=== PATIENT | male | born 1950 | race Caucasian/White ===

== ENCOUNTER 2019-02-07 07:59 | Outpatient (CLI) | payer MEDICARE, SELFPAY | END 2019-02-07 08:19 | PROVIDERS: PCP Family Medicine; Visit Provider Family Medicine | DX: R69 Illness, unspecified (principal) | CPT/HCPCS: 36415; 80053; 80061; 83721; 84153 ==

== ENCOUNTER 2019-02-12 07:14 | Outpatient (CLI) | payer MEDICARE, SELFPAY | END 2019-02-12 07:34 | PROVIDERS: PCP Family Medicine; Visit Provider Family Medicine | DX: R69 Illness, unspecified (principal) | CPT/HCPCS: 36415; 80053; 80061; 83721; 84153 ==

== ENCOUNTER 2019-04-09 08:02 | Outpatient (CLI) | payer MEDICARE, MEDICAID, SELFPAY ==
[2019-04-09 08:54] LABS: Hemoglobin A1C 5.6 % (4.5-6.2)
[2019-04-09 09:12] LABS: ALT 23 U/L (12-78); AST 19 U/L (15-37); Albumin 3.6 g/dL (3.4-5.0); Alkaline Phosphatase 64 U/L (46-116); Anion Gap 9.5 mmol/L (3-11); BUN 18 mg/dL (7-18); Bilirubin, Total 0.3 mg/dL (0.2-1.0); CO2 26.5 mmol/L (21.0-32.0); CREATININE 0.98 mg/dL (0.70-1.30); Chloride 97 mmol/L (98-107); Cholesterol 170 mg/dL (50-200); Glucose 81 mg/dL (70-100); HDL Cholesterol 71 mg/dL (40-60); LDL CHOLESTEROL 79 mg/dL (<100); Potassium 4.5 mmol/L (3.5-5.1); Sodium 133 mmol/L (136-145); Total Protein 6.6 g/dL (6.4-8.2); Triglyceride 62 mg/dL (30-150)
== END 2019-04-09 08:22 ==
PROVIDERS: PCP Family Medicine; Visit Provider Family Medicine
DX: E78.5 Hyperlipidemia, unspecified (principal); I10 Essential (primary) hypertension; R73.01 Impaired fasting glucose; Z80.42 Family history of malignant neoplasm of prostate
CPT/HCPCS: 36415; 80053; 80061; 83721; 84153; 83036

== ENCOUNTER 2019-06-06 13:22 | Outpatient (REF) | payer MEDICARE, MEDICAID, SELFPAY ==
[2019-06-06 19:43] LABS: Anion Gap 6.6 mmol/L (3-11); BUN 27 mg/dL (7-18); CO2 28.4 mmol/L (21.0-32.0); CREATININE 1.08 mg/dL (0.70-1.30); Calcium 9.4 mg/dL (8.5-10.1); Chloride 102 mmol/L (98-107); Glucose 97 mg/dL (70-100); Potassium 4.8 mmol/L (3.5-5.1); Sodium 137 mmol/L (136-145)
== END 2019-06-06 13:42 ==
LOC: LBN 13:22
PROVIDERS: PCP Family Medicine; Visit Provider Nurse Practitioner Adult Health
DX: I10 Essential (primary) hypertension (principal); E87.1 Hypo-osmolality and hyponatremia
CPT/HCPCS: 80048

== ENCOUNTER 2020-10-05 10:37 | Outpatient (CLI) | payer MEDICAID, SELFPAY ==
[2020-10-09 13:41] LABS: Patient Race White; SARS-CoV-2 RNA Undetected (Undetected); SARS-CoV-2 Specimen Source Nasal
== END 2020-10-05 10:57 ==
PROVIDERS: PCP Nurse Practitioner Adult Health; Visit Provider Nurse Practitioner
DX: R05 Cough (principal)
CPT/HCPCS: U0003

== ENCOUNTER 2020-12-24 11:55 | Outpatient (CLI) | payer MEDICAID, MEDICARE, SELFPAY ==
[2020-12-24 12:32] LABS: Hemoglobin A1C 5.6 % (<5.7)
[2020-12-24 13:58] LABS: ALT 22 U/L (16-63); AST 21 U/L (15-37); Albumin 3.8 g/dL (3.4-5.0); Alkaline Phosphatase 72 U/L (46-116); Anion Gap 7.4 mmol/L (3-11); BUN 17 mg/dL (7-18); Bilirubin, Total 0.9 mg/dL (0.2-1.0); CO2 27.6 mmol/L (21.0-32.0); CREATININE 1.1 mg/dL (0.70-1.30); Calcium 9.3 mg/dL (8.5-10.1); Calculated LDL 132 mg/dL (<100); Chloride 100 mmol/L (98-107); Cholesterol 206 mg/dL (<200); Glucose 85 mg/dL (74-106); HDL Cholesterol 66 mg/dL (40-60); Potassium 4.5 mmol/L (3.5-5.1); Sodium 135 mmol/L (136-145); Total Protein 7.1 g/dL (6.4-8.2); Triglyceride 43 mg/dL (<150); Vitamin B12 578 pg/mL (193-986)
[2020-12-24 22:16] LABS: PSA, Screening 1.4 ng/mL (0.0-6.5)
== END 2020-12-24 12:15 ==
PROVIDERS: PCP Nurse Practitioner Adult Health; Visit Provider Nurse Practitioner Adult Health
DX: I10 Essential (primary) hypertension (principal); R73.01 Impaired fasting glucose; K21.9 Gastro-esophageal reflux disease without esophagitis; G62.9 Polyneuropathy, unspecified; N40.0 Benign prostatic hyperplasia without lower urinary tract symptoms; Z12.5 Encounter for screening for malignant neoplasm of prostate; Z80.42 Family history of malignant neoplasm of prostate
CPT/HCPCS: 36415; 80053; 80061; 84153; 82607; 83036

== ENCOUNTER 2021-05-06 15:21 | Outpatient (CLI) | payer MEDICAID, SELFPAY ==
--- NOTE | 2021-05-06 15:15 | RT.EKG_ITS ---
APPROVED REPORT Exam: Resting ECG Reason for Exam: c/o chest pain Patient Location: O HR:51 bpm ECG Measurements Heart Rate 51 AXIS MI 149 P 38 QRSd 134 QRS -66 QT 485 T -12 QTc 446 Conclusion Sinus bradycardia...rate< 60 RBBB and LAFB...QRSd >120mS, axis(-40,240)
== END 2021-05-06 15:22 | disposition home or self-care (01) ==
LOC: DI.KIM 15:22
PROVIDERS: PCP Nurse Practitioner Adult Health; Visit Provider Student in an Organized Health Care Education/Training Program
DX: R07.9 Chest pain, unspecified (principal)
CPT/HCPCS: 93010

== ENCOUNTER 2021-05-09 16:22 | Outpatient (RCR) | payer MEDICAID, SELFPAY ==
--- NOTE | 2021-05-09 13:30 | HOLTER_ITS ---
APPROVED REPORT This is a 48-hour Holter monitor. Rhythm throughout was sinus with an average heart rate of 62. Minimum was 49, maximum 89 There were very rare atrial and ventricular ectopic beats There is no atrial fibrillation, no high-grade AV block, no pauses greater than 3 seconds No patient symptoms were reported
--- NOTE | 2021-06-30 13:38 | W.CARDEVENT ---
Date of service: 06/30/21 Time of Service: 13:38 Cardiac Event Recorder Referring Provider:: Gifty Indications:: A Cardiac Event Note: There is a 30-day event recorder order for indication of tachycardia. ?The patient was in sinus bradycardia for the majority of the recording with an average heart rate of 55 bpm (46-100 BPM). ?There were no episodes of ventricular tachycardia nor any episodes of atrial fibrillation, pauses greater than 3 seconds and no evidence of high degree heart block. ?There were 2 patient triggered events both associated with sinus rhythm/sinus bradycardia.
== END 2021-05-25 23:59 | disposition home or self-care (01) ==
LOC: RT 16:22
PROVIDERS: PCP Nurse Practitioner Adult Health; Visit Provider Student in an Organized Health Care Education/Training Program
DX: R00.0 Tachycardia, unspecified (principal); R00.1 Bradycardia, unspecified
CPT/HCPCS: 93225; 93226

== ENCOUNTER 2021-06-13 14:32 | Outpatient (CLI) | payer MEDICAID, SELFPAY | END 2021-06-13 14:33 | disposition home or self-care (01) | PROVIDERS: PCP Nurse Practitioner Adult Health; Visit Provider Student in an Organized Health Care Education/Training Program | DX: R00.0 Tachycardia, unspecified (principal) | CPT/HCPCS: 93270 ==

== ENCOUNTER 2021-12-02 03:57 | Outpatient (CLI) | payer MEDICAID, SELFPAY ==
[2021-12-02 08:09] LABS: Hemoglobin A1C 5.6 % (<5.7)
[2021-12-02 08:58] LABS: ALT 21 U/L (16-63); AST 17 U/L (15-37); Albumin 4.1 g/dL (3.4-5.0); Alkaline Phosphatase 97 U/L (46-116); Anion Gap 10.1 mmol/L (3-11); BUN 16 mg/dL (7-18); Bilirubin, Total 0.8 mg/dL (0.2-1.0); CO2 27.9 mmol/L (21.0-32.0); CREATININE 1.2 mg/dL (0.70-1.30); Calcium 9.3 mg/dL (8.5-10.1); Calculated LDL 138 mg/dL (<100); Chloride 98 mmol/L (98-107); Cholesterol 216 mg/dL (<200); Estimated GFR 59.35 (mL/min/1.73m2); Glucose 114 mg/dL (74-106); HDL Cholesterol 66 mg/dL (40-60); Potassium 4.4 mmol/L (3.5-5.1); Sodium 136 mmol/L (136-145); Total Protein 7.5 g/dL (6.4-8.2); Triglyceride 61 mg/dL (<150)
[2021-12-02 09:09] LABS: Creatine Kinase 45 U/L (39-308)
[2021-12-02 17:23] LABS: PSA, Screening 1.5 ng/mL (0.0-6.5)
== END 2021-12-02 03:58 | disposition home or self-care (01) ==
LOC: LBO 03:57
PROVIDERS: PCP Nurse Practitioner Adult Health; Visit Provider Nurse Practitioner Adult Health
DX: E78.5 Hyperlipidemia, unspecified (principal); I10 Essential (primary) hypertension; N40.0 Benign prostatic hyperplasia without lower urinary tract symptoms; R73.01 Impaired fasting glucose; Z80.42 Family history of malignant neoplasm of prostate; Z12.5 Encounter for screening for malignant neoplasm of prostate
CPT/HCPCS: 36415; 80053; 80061; 82550; 84153; 83036

== ENCOUNTER 2022-01-04 01:39 | Outpatient (CLI) | payer MEDICAID, SELFPAY ==
[2022-01-04 08:04] LABS: Abs Immature Grans 0.02 10^3/uL (0.0-0.06); Absolute Basophil Count 0.04 10^3/uL (0.0-0.2); Absolute Eosinophil Count 0.19 10^3/uL (0.0-0.7); Absolute Lymphocyte Count 2.23 10^3/uL (1.2-3.4); Absolute Monocyte Count 0.62 10^3/uL (0.1-0.8); Absolute Neutrophil Count 5.32 10^3/uL (1.2-6.7); Basophils % 0.5; Eosinophils % 2.3; HCT 42.6 % (40.0-50.0); HGB 14.6 g/dL (13.5-17.5); Immature Grans % 0.2; Lymphocytes % 26.5; MCH 32.8 pg (27.0-33.0); MCHC 34.3 % (32.0-36.0); MCV 95.7 fL (80-95); MPV 9.4 fL (8.0-11.0); Monocytes % 7.4; Neutrophils % 63.1; Nucleated RBC 0 %; Platelet Count 285 10^3/uL (130-400); RBC 4.45 10^6/uL (4.36-5.78); RDW 12.3 % (11.8-14.1); RDW-SD 43.3 fL; WBC 8.42 10^3/uL (4.4-10.8)
[2022-01-04 09:04] LABS: Iron 113 ug/dL (65-175); Total Iron Binding Capacity 301 ug/dL (250-450)
[2022-01-04 09:29] LABS: Anion Gap 10.1 mmol/L (3-11); CO2 26.9 mmol/L (21.0-32.0); Chloride 103 mmol/L (98-107); Ferritin 169 ng/mL (26-388); Folate 19.8 ng/mL (8.6-20.0); Magnesium 2.1 mg/dL (1.8-2.4); Potassium 4.7 mmol/L (3.5-5.1); Sodium 140 mmol/L (136-145); Vitamin B12 415 pg/mL (193-986)
[2022-01-05 00:17] LABS: Vitamin D 25 Total 57.2 ng/mL (30-100)
[2022-01-05 14:04] LABS: Lipoprotein (a) 162 nmol/L (<75)
[2022-01-06 08:20] LABS: Homocysteine 11.4 umol/L (5.0-13.9)
== END 2022-01-04 01:40 | disposition home or self-care (01) ==
LOC: LBO 01:39
PROVIDERS: PCP Nurse Practitioner Adult Health; Visit Provider Naturopath
DX: R53.83 Other fatigue (principal); I10 Essential (primary) hypertension; E55.9 Vitamin D deficiency, unspecified; Z82.49 Family history of ischemic heart disease and other diseases of the circulatory system
CPT/HCPCS: 36415; 80051; 82306; 83090; 83695; 82607; 82728; 82746; 83540; 83550; 83735; 85025

== ENCOUNTER 2022-02-06 02:26 | Outpatient (CLI) | payer MEDICARE, MEDICAID, SELFPAY ==
[2022-02-06 19:02] LABS: PSA, Screening 1.6 ng/mL (0.0-6.5)
[2022-02-09 17:45] LABS: Estradiol, Mass Spectrometry 31 pg/mL (10-40); Estrone 38 pg/mL (10-60)
[2022-02-10 17:59] LABS: Dehydroepiandrosterone (DHEA) 2.4 ng/mL (<5.0)
[2022-02-13 12:11] LABS: Testosterone, Free 13.3 ng/dL (3.28-12.2); Testosterone, Total 605 ng/dL (240-950)
== END 2022-02-06 02:27 | disposition home or self-care (01) ==
LOC: LBO 02:26
PROVIDERS: PCP Nurse Practitioner Adult Health; Visit Provider Naturopath
DX: N40.0 Benign prostatic hyperplasia without lower urinary tract symptoms (principal); R68.82 Decreased libido; Z12.5 Encounter for screening for malignant neoplasm of prostate
CPT/HCPCS: 36415; 84153; 84402; 84403; 82626; 82670; 82679

== ENCOUNTER 2022-04-19 14:02 | Outpatient (CLI) | payer MEDICARE, MEDICAID, SELFPAY ==
[2022-04-19 14:01] LABS: ESR 35 mm/hr (0-20)
[2022-04-19 14:12] LABS: C-Reactive Protein 3.25 mg/dL (0.0-0.3); Creatine Kinase 37 U/L (39-308)
== END 2022-04-19 14:03 | disposition home or self-care (01) ==
LOC: LBO 14:25
PROVIDERS: PCP Nurse Practitioner Adult Health; Visit Provider Nurse Practitioner Adult Health
DX: M25.50 Pain in unspecified joint (principal); R53.1 Weakness
CPT/HCPCS: 36415; 82550; 85652; 86140

== ENCOUNTER 2022-05-26 03:12 | Outpatient (CLI) | payer MEDICARE, MEDICAID, SELFPAY ==
[2022-05-26 08:38] LABS: ESR 45 mm/hr (0-20)
[2022-05-26 09:08] LABS: C-Reactive Protein 0.95 mg/dL (0.0-0.3)
== END 2022-05-26 03:13 | disposition home or self-care (01) ==
LOC: LBO 03:12
PROVIDERS: PCP Nurse Practitioner Adult Health; Visit Provider Nurse Practitioner Adult Health
DX: M35.3 Polymyalgia rheumatica (principal)
CPT/HCPCS: 36415; 85652; 86140

== ENCOUNTER 2022-06-09 02:00 | Outpatient (CLI) | payer MEDICARE, MEDICAID, SELFPAY ==
[2022-06-09 09:04] LABS: ESR 13 mm/hr (0-20)
[2022-06-09 09:42] LABS: C-Reactive Protein < 0.05 mg/dL (0.0-0.3)
== END 2022-06-09 02:01 | disposition home or self-care (01) ==
LOC: LBO 02:00
PROVIDERS: PCP Nurse Practitioner Adult Health; Visit Provider Nurse Practitioner Adult Health
DX: M35.3 Polymyalgia rheumatica (principal)
CPT/HCPCS: 36415; 85652; 86140

== ENCOUNTER 2022-07-12 02:35 | Outpatient (CLI) | payer MEDICARE, MEDICAID, SELFPAY ==
[2022-07-12 08:36] LABS: HCT 37.2 % (40.0-50.0); HGB 13.4 g/dL (13.5-17.5); MCH 33.7 pg (27.0-33.0); MCV 94 fL (80-95); MPV 8.5 fL (8.0-11.0); Platelet Count 218 10^3/uL (130-400); RBC 3.98 10^6/uL (4.36-5.78); RDW-SD 48.4 fL; WBC 10.78 10^3/uL (4.4-10.8)
[2022-07-12 08:38] LABS: ESR 24 mm/hr (0-20)
[2022-07-12 09:41] LABS: Anion Gap 7.4 mmol/L (3-11); BUN 16 mg/dL (7-18); CO2 30.6 mmol/L (21.0-32.0); CREATININE 0.9 mg/dL (0.70-1.30); Calcium 8.5 mg/dL (8.5-10.1); Calculated LDL 82 mg/dL (<100); Chloride 95 mmol/L (98-107); Cholesterol 230 mg/dL (<200); Glucose 115 mg/dL (74-106); HDL Cholesterol 138 mg/dL (40-60); Potassium 3.5 mmol/L (3.5-5.1); Sodium 133 mmol/L (136-145); Triglyceride 53 mg/dL (<150)
[2022-07-12 15:17] LABS: C-Reactive Protein 0.38 mg/dL (0.0-0.3)
== END 2022-07-12 02:36 | disposition home or self-care (01) ==
LOC: LBO 02:35
PROVIDERS: PCP Nurse Practitioner Adult Health; Visit Provider Nurse Practitioner Adult Health
DX: M35.3 Polymyalgia rheumatica (principal); Z51.81 Encounter for therapeutic drug level monitoring; R79.89 Other specified abnormal findings of blood chemistry
CPT/HCPCS: 36415; 80048; 80061; 85027; 85652; 86140

== ENCOUNTER 2022-07-14 11:21 | Outpatient (REF) | payer MEDICARE, MEDICAID, SELFPAY ==
[2022-07-14 15:56] LABS: Creatine Kinase 37 U/L (39-308)
== END 2022-07-14 11:22 | disposition home or self-care (01) ==
LOC: LBN 11:21
PROVIDERS: PCP Nurse Practitioner Adult Health; Visit Provider Nurse Practitioner Adult Health
DX: M35.3 Polymyalgia rheumatica (principal); M62.81 Muscle weakness (generalized); R26.9 Unspecified abnormalities of gait and mobility
CPT/HCPCS: 82550

== ENCOUNTER 2022-07-21 01:22 | Outpatient (CLI) | payer MEDICARE, MEDICAID, SELFPAY ==
[2022-07-21 09:17] LABS: ESR 29 mm/hr (0-20)
[2022-07-21 10:15] LABS: C-Reactive Protein 0.78 mg/dL (0.0-0.3)
== END 2022-07-21 01:23 | disposition home or self-care (01) ==
LOC: LBO 01:22
PROVIDERS: PCP Nurse Practitioner Adult Health; Visit Provider Nurse Practitioner Adult Health
DX: M35.3 Polymyalgia rheumatica (principal)
CPT/HCPCS: 36415; 85652; 86140

== ENCOUNTER 2022-08-18 08:45 | Outpatient (CLI) | payer MEDICARE, MEDICAID, SELFPAY ==
[2022-08-18 09:18] LABS: ESR 23 mm/hr (0-20)
[2022-08-18 10:21] LABS: C-Reactive Protein 0.68 mg/dL (0.0-0.3)
[2022-08-21 09:41] LABS: Hepatitis B Surface Ag Negative (Negative)
[2022-08-21 09:44] LABS: HBs Antibody, Quant <3.1 mIU/mL (See Note); Hepatitis B Surface Ab Negative (See Note)
[2022-08-21 10:25] LABS: HIV-1/2 Ag & Ab Screen Negative (Negative)
[2022-08-21 10:28] LABS: Hep B Core Antibody Negative (Negative)
[2022-08-21 10:30] LABS: Hepatitis C Ab w Rflx HCV PCR Negative (Negative)
[2022-08-21 14:05] LABS: TB Interpretation Negative (Negative); TB1 Ag minus Nil 0.13 IU/ml; TB2 Ag minus Nil 0.09 IU/mL
== END 2022-08-18 08:46 | disposition home or self-care (01) ==
LOC: LBO 08:45
PROVIDERS: PCP Nurse Practitioner Adult Health
DX: M31.6 Other giant cell arteritis (principal); D84.9 Immunodeficiency, unspecified
CPT/HCPCS: 36415; 85652; 86704; 86706; 86803; 87340; 87389; 86140; 86480

== ENCOUNTER 2022-09-11 12:44 | Outpatient (CLI) | payer MEDICARE, MEDICAID, SELFPAY ==
[2022-09-11 09:38] LABS: ESR 24 mm/hr (0-20)
[2022-09-11 09:39] LABS: HCT 34.2 % (40.0-50.0); MCH 33.3 pg (27.0-33.0); MCHC 35.1 % (32.0-36.0); MCV 95 fL (80-95); Platelet Count 275 10^3/uL (130-400); RDW 12.8 % (11.8-14.1); RDW-SD 45.1 fL; WBC 16.99 10^3/uL (4.4-10.8)
[2022-09-11 10:23] LABS: C-Reactive Protein 0.63 mg/dL (0.0-0.3)
[2022-09-11 10:28] LABS: ALT 33 U/L (16-63); AST 18 U/L (15-37); Albumin 3.4 g/dL (3.4-5.0); Alkaline Phosphatase 59 U/L (46-116); Anion Gap 6.6 mmol/L (3-11); BUN 27 mg/dL (7-18); Bilirubin, Total 0.6 mg/dL (0.2-1.0); CO2 30.4 mmol/L (21.0-32.0); CREATININE 1.3 mg/dL (0.70-1.30); Calcium 9.1 mg/dL (8.5-10.1); Chloride 95 mmol/L (98-107); Estimated GFR 58.01 (mL/min/1.73m2); Glucose 165 mg/dL (74-106); Potassium 4.3 mmol/L (3.5-5.1); Sodium 132 mmol/L (136-145); TSH (W/Ref FT4) 3.52 uIU/mL (0.36-3.74); Total Protein 6.8 g/dL (6.4-8.2)
[2022-09-14 01:30] LABS: Pyridoxal 5-Phosphate (PLP), P 37 mcg/L (5-50)
== END 2022-09-11 12:45 | disposition home or self-care (01) ==
LOC: LBO 12:52
PROVIDERS: Internal Medicine; PCP Nurse Practitioner Adult Health; Visit Provider Nurse Practitioner Adult Health
DX: F10.11 Alcohol abuse, in remission (principal); M35.3 Polymyalgia rheumatica; M62.81 Muscle weakness (generalized); R26.9 Unspecified abnormalities of gait and mobility; E78.41 Elevated Lipoprotein(a); M31.6 Other giant cell arteritis
CPT/HCPCS: 36415; 80053; 85027; 85652; 84207; 84425; 84443; 86140

== ENCOUNTER 2022-09-13 12:47 | Outpatient (CLI) | payer MEDICARE, MEDICAID, SELFPAY ==
[2022-09-16 12:33] LABS: Thiamine (Vitamin B1), WB 131 nmol/L (70-180)
== END 2022-09-13 12:48 | disposition home or self-care (01) ==
LOC: LBO 12:50
PROVIDERS: PCP Nurse Practitioner Adult Health; Visit Provider Nurse Practitioner Adult Health
DX: F10.11 Alcohol abuse, in remission (principal); M35.3 Polymyalgia rheumatica; M62.81 Muscle weakness (generalized); R26.9 Unspecified abnormalities of gait and mobility
CPT/HCPCS: 84425

== ENCOUNTER 2022-10-18 11:53 | Outpatient (REF) | payer MEDICARE, MEDICAID, SELFPAY ==
[2022-10-18 14:29] LABS: Abs Immature Grans 0.14 10^3/uL (0.0-0.06); Absolute Basophil Count 0.02 10^3/uL (0.0-0.2); Absolute Lymphocyte Count 1.08 10^3/uL (1.2-3.4); Absolute Monocyte Count 0.33 10^3/uL (0.1-0.8); Basophils % 0.1; Eosinophils % 0.1; HCT 36.9 % (40.0-50.0); HGB 12.5 g/dL (13.5-17.5); Immature Grans % 0.9; Lymphocytes % 6.8; MCH 32.7 pg (27.0-33.0); MCHC 33.9 % (32.0-36.0); MCV 97 fL (80-95); MPV 8.9 fL (8.0-11.0); Monocytes % 2.1; Platelet Count 319 10^3/uL (130-400); RBC 3.82 10^6/uL (4.36-5.78); RDW 13.2 % (11.8-14.1); RDW-SD 47.2 fL; WBC 15.92 10^3/uL (4.4-10.8)
[2022-10-18 14:35] LABS: ESR 33 mm/hr (0-20)
[2022-10-18 14:39] LABS: Absolute Eosinophil Count 0.02 10^3/uL (0.0-0.7); Absolute Neutrophil Count 14.33 10^3/uL (1.2-6.7)
[2022-10-18 14:58] LABS: Hemoglobin A1C 7.7 % (<5.7)
[2022-10-18 15:28] LABS: ALT 30 U/L (16-63); AST 14 U/L (15-37); Albumin 3.4 g/dL (3.4-5.0); Alkaline Phosphatase 72 U/L (46-116); Anion Gap 10.2 mmol/L (3-11); BUN 26 mg/dL (7-18); Bilirubin, Total 0.4 mg/dL (0.2-1.0); CO2 26.8 mmol/L (21.0-32.0); CREATININE 1.1 mg/dL (0.70-1.30); Calcium 9.2 mg/dL (8.5-10.1); Chloride 93 mmol/L (98-107); Estimated GFR 70.44 (mL/min/1.73m2); Ferritin 324 ng/mL (26-388); Glucose 314 mg/dL (74-106); Potassium 4.2 mmol/L (3.5-5.1); Sodium 130 mmol/L (136-145); Total Protein 6.4 g/dL (6.4-8.2); Vitamin B12 528 pg/mL (193-986)
[2022-10-18 16:10] LABS: C-Reactive Protein 0.14 mg/dL (0.0-0.3)
== END 2022-10-18 11:54 | disposition home or self-care (01) ==
LOC: LBN 11:53
PROVIDERS: PCP Nurse Practitioner Adult Health; Visit Provider Nurse Practitioner Adult Health
DX: R73.01 Impaired fasting glucose (principal); I10 Essential (primary) hypertension; D64.9 Anemia, unspecified; R26.89 Other abnormalities of gait and mobility; M35.3 Polymyalgia rheumatica; F10.11 Alcohol abuse, in remission
CPT/HCPCS: 80048; 80053; 85652; 82607; 82728; 83036; 85025; 86140

== ENCOUNTER → 2022-10-24 01:49 | Outpatient (CLI) | payer MEDICARE, MEDICAID, SELFPAY ==
--- NOTE | 2022-10-24 06:45 | DI.NM_ITS ---
APPROVED REPORT Exam: Exercise Treadmill Patient Location: Out-Patient Room/Bed: Stress Nurse: Lynn Quintanilla RN Ordering Provider:EDDIE FRAZIER, Contact Number: [phone] BMI: 22.70 Baseline Rhythm: Sinus Rhythm, RBBB, LAFB Indications: ? ISCHEMIA RELATED SOB, HTN, SOB Medical History Medical History: Anemia, Abnormal gait, PMR, HLD, Peripheral neuropathy, HTN, Hx of ETOH abuse, forme r smoker, Impaired fasting glucose Cardiac Medications: Sildenafil, Omeprazole, Aspirin, Amlodipine, Allergies: Amoxicillin, Atenolol, Clavulanic acid Cardiac Risk Factors: FHX of CAD, HTN, Hyperlipidemia, Smoking (former) Previous Cardiac Procedures: None Pretest Chest Pain Characteristics: None Exercise History: Indeterminate Physical Disabilities: Abnormal gait Lung Sounds: Clear to auscultation Heart Sounds: Regular Stress Test Details Test: Exercise stress testing was performed using a Iftikhar protocol. Nuclear Acquisition: Rest Tc-99m/Stress Tc-99m 1 day Rest Isotope: Tc-99m Sestamibi. Dose: 10.0 Date: 10/24/2022 Injection Time: 0900 Stress Isotope: Tc-99m Sestamibi. Dose: 32.0 Date: 10/24/2022 Injection Time: 1017 HR Resting HR Supine: 68 bpm Max Heart Rate (APMHR): 146.959159 bpm Resting HR Standin bpm Target HR (85% APMHR): 124.238050 bpm Max HR Achieved: 128 bpm % of APMHR: 87.67 Recovery HR: 82 bpm HR response to stress: Normal HR response to stress BP Resting BP Supine: 144/74 mmHg Resting BP Standin/66 mmHg Max BP: 164/70 mmHg Recovery BP: 140/76 mmHg BP response to stress: Normal blood pressure response to stress. ECG Resting ECG: Sinus Rhythm, RBBB, LAFB Ectopy: None Stress ECG: Sinus Tachycardia ST Change: No significant ST segment changes noted Arrhythmia: None Recovery ECG: Sinus Rhythm, RBBB, LAFB Recovery ST Change: No significant ST segment changes noted Recovery Arrhythmia: rare PVC Clinical Reason for Termination: Fatigue, Leg fatigue Stress Symptoms: Dyspnea, Leg Fatigue Exercise duration: 3 min00 sec Highest Stage Reached: Stage 1: 1.7 mph at 10% grade. Exercise capacity: 4.64 METs Diehl Treadmill Score: 3 Rate Pressure Product: [id number] Stress ECG Conclusion 1. Resting electrocardiogram shows left anterior fascicular block, right bundle branch block 2. Patient exercised on the Iftikhar protocol and completed a workload of 4.64 METS, limited by fatigue and shortness of breath 3. Normal heart rate and blood pressure response to exercise. The patient achieved 87% of predicted heart rate for age 4. There was no electrocardiographic evidence of myocardial ischemia 5. See MPI report Diehl Treadmill Score is 3 which is Moderate risk. Stress Test Summary STAGE Time (mins) Speed (mph) Grade (%) HR BP SpO2 SYMPTOMS METS Supine 68 144/74 Standing 88 132/66 99 1 3 1.7 10 124 144/62 4.5 1 min recovery 119 150/52 98 3 min recovery 92 164/70 6 min recovery 82 140/76 Speed modified (decreased) after 2 minutes of walking to encourage continuation of exercise after iso tarsha injection. MPI Conclusion Myocardial perfusion is normal. There is no evidence of ischemia or prior infarction EF 52%, normal wall motion Radiologist Interpretation Radiologist Interpretation by: Jh Ricks MD Interpretation Date/Time: 10/24/2022 16:58:55
== END ==
PROVIDERS: PCP Nurse Practitioner Adult Health; Visit Provider Nurse Practitioner Adult Health
DX: I10 Essential (primary) hypertension (principal); R06.02 Shortness of breath; R73.01 Impaired fasting glucose
CPT/HCPCS: 78452; 93016; 93018; 93017

== ENCOUNTER → 2022-10-27 13:15 | Outpatient (CLI) | payer MEDICARE, MEDICAID, SELFPAY ==
--- NOTE | 2022-10-27 12:00 | DI.RAD_ITS ---
Exam(s) XR WRIST LT COMPLETE EXAM: XR WRIST LT COMPLETE CLINICAL HISTORY: Fall yesterday; suspect FOOSH injury, PAIN ULNAR SIDE WRIST, W19.XXXA. TECHNIQUE: 2D digital imaging was performed. Three views. COMPARISON: No exams were available for comparison FINDINGS: BONES: Nondisplaced fracture distal radius with slight impaction but no significant angulation or dis placement. No visible extension to the articular surface. No additional fractures. No bony destruc tive lesion is seen. JOINTS: The carpal bones are normally aligned. SOFT TISSUE: Normal. IMPRESSION: Nondisplaced fracture distal radius. DATA REPOSITORY: RADIATION DOSE DELIVERED:
== END ==
PROVIDERS: PCP Nurse Practitioner Adult Health; Visit Provider Nurse Practitioner Adult Health
DX: S52.502A Unspecified fracture of the lower end of left radius, initial encounter for closed fracture (principal); W19.XXXA Unspecified fall, initial encounter
CPT/HCPCS: 73110

== ENCOUNTER 2022-11-16 11:59 | Outpatient (CLI) | payer MEDICARE, MEDICAID, SELFPAY ==
--- NOTE | 2022-11-16 11:45 | DI.RAD_ITS ---
Exam(s) XR WRIST LT COMPLETE EXAM: XR WRIST LT COMPLETE CLINICAL HISTORY: left wrist f/u. TECHNIQUE: 2D digital imaging was performed. Three views. COMPARISON: CR XR WRIST LT COMPLETE from 10/27/2022 FINDINGS: There has been no change in the alignment of the distal radial fracture. There is increased callus f ormation around the fracture site. Vascular calcifications incidentally noted. DATA REPOSITORY: RADIATION DOSE DELIVERED:
== END 2022-11-16 12:00 | disposition home or self-care (01) ==
LOC: DIORS 12:00
PROVIDERS: PCP Nurse Practitioner Adult Health; Referring Provider Nurse Practitioner Adult Health; Visit Provider Student in an Organized Health Care Education/Training Program
DX: S52.502A Unspecified fracture of the lower end of left radius, initial encounter for closed fracture (principal); W00.0XXA Fall on same level due to ice and snow, initial encounter
CPT/HCPCS: 99213; 73110

== ENCOUNTER 2022-11-24 11:19 | Outpatient (CLI) | payer MEDICARE, MEDICAID, SELFPAY ==
--- NOTE | 2022-11-24 11:00 | DI.RAD_ITS ---
Exam(s) XR WRIST LT LIMITED EXAM: XR WRIST LT LIMITED INDICATION: L distal radius fx. COMPARISON: CR XR WRIST LT COMPLETE from 11/16/2022 TECHNIQUE: 2D digital imaging was performed. Two views. FINDINGS: There has been no change in the alignment of the distal radial fracture. There is increased callus f ormation at the fracture site. DATA REPOSITORY: RADIATION DOSE DELIVERED:
== END 2022-11-24 11:20 | disposition home or self-care (01) ==
LOC: DIORS 11:20
PROVIDERS: PCP Nurse Practitioner Adult Health; Referring Provider Nurse Practitioner Adult Health; Visit Provider Physician Assistant
DX: S52.502A Unspecified fracture of the lower end of left radius, initial encounter for closed fracture (principal); W19.XXXA Unspecified fall, initial encounter
CPT/HCPCS: 99213; 73100

== ENCOUNTER 2022-11-29 07:52 | Emergency (ER) | payer MEDICARE, MEDICAID, SELFPAY ==
[2022-11-29 07:55] VITALS: BP 133/86; PULSE 97; RESP 16; TEMP 36.5; O2SAT 98
--- NOTE | 2022-11-29 08:09 | ED.GENADUL_ITS ---
Discharge Plan Disposition Patient Disposition: Home Condition: Stable Discharge Details Clinical Impression: Cellulitis Primary Care Provider: Yesy Nagy ED Provider: Blake Fried Home Meds and New Rx's Prescriptions: New cephalexin 500 mg tablet 500 mg PO QID 7 Days Qty: 28 0RF Continued mupirocin 2 % ointment 1 applic topical BID-TID Qty: 15 0RF Rx Instructions: May substitute with cream if less expensive; use until lesion resolved vitamin B complex [B Complex-Vitamin B12] Tablet 1 tab PO DAILY zinc 50 mg tablet 50 mg PO DAILY Emergen-C 1,000 MG powder effervescent in packet 1,000 mg PO PRN PRN turmeric 400 mg capsule 400 mg PO DAILY Label Comments: Inflammation calcium carbonate 600 mg calcium (1,500 mg) tablet 600 mg PO BID cholecalciferol (vitamin D3) 25 mcg (1,000 unit) capsule 25 mcg PO DAILY prednisone 20 mg tablet 17.5 mg PO DAILY Rx Instructions: Rheumatology 09/14/22 Started taper Pt will start 17.5mg 10/19/22 for two weeks. 12/4 taper down to 15 mg x2 weeks, then 12.5 mg x 2 weeks, then 10 mg x2 weeks. Then taper down by 1 mg/month (DME) lancets Misc See Rx Instructions .Route Qty: 100 3RF Rx Instructions: As directed E11.9 for daily monitoring for A1C <=7% One touch lancets (DME) blood-glucose meter Kit See Rx Instructions .Route Qty: 1 0RF Rx Instructions: ONE TOUCH METER As directed to check blood glucose daily. No insulin. DX:E11.9 to maintain Hba1c <7% (DME) blood sugar diagnostic Strip See Rx Instructions .Route Qty: 100 3RF Rx Instructions: One touch test strips As directed to check blood glucose daily. no insulin. DX:E11.9 to maintain Hba1c <7% Discontinued metformin 500 mg tablet extended release 24 hr 1 tab PO DAILY Label Comments: TAKE ONE TABLET BY MOUTH EVERY DAY WITH FOOD No Action tamsulosin [Flomax] 0.4 mg capsule 0.4 mg PO DAILY Qty: 90 3RF Rx Instructions: Enlarged prostate metformin 500 mg tablet extended release 24 hr 500 mg PO DAILY Label Comments: TAKE ONE TABLET BY MOUTH EVERY DAY WITH FOOD amlodipine 5 mg tablet 5 mg PO DAILY Discharge Instructions Instructions: Cellulitis (ED) Additional Instructions: Continue to monitor infection and if you develop fever chills, significant and rapid spread of redness, or worrisome change in your condition return to the emergency department for reassessment. Otherwise take medication as prescribed and if you do not see signs of improvement in the next 24 to 48 hours follow-up with your primary care provider for reassessment or return to the emergency department. Referrals: Yesy Nagy CIRCUIT BOARD REPAIR TECHNICIAN [Primary Care Provider] - (As needed for reassessment or if not improving) Medical Decision Making Patient presenting to the emergency department for chief complaint of right forearm injury. 4 days ago patient states a bed spring caused a wound to the right forearm. Patient denies any other injury or trauma or symptoms. Patient has full range of motion of right upper extremity, no obvious deformity, patient does have an abrasion to the right forearm with surrounding erythema that is consistent with cellulitis. No streaking erythema, no fever no chills no other worrisome findings noted. Patient states that he is not up-to-date on his tetanus so we will plan on starting patient on Keflex and updating tetanus. After discussion of diagnosis and plan of care patient has no further needs, questions, or concerns and states clear understanding to return to the emergency department for any worsening symptoms. This documentation was generated using [employer] dictation system, please disregard any oddities of phrase or misspellings. At time of discharge patient did report that he was out of his metformin so I resent a prescription for 30 days pending his primary care appointment. HPI General Mode of arrival: ambulatory . Date/Time Provider Initiated Documentation: 11/29/22 08:02 . Limitations to Documentation: no limitations . Information obtained by: patient and RN notes reviewed . History of Present Illness 72 year old M presents to the emergency department with the chief complaint of Right arm infection, described as moderate, with intensity rated at 1. Quality is described as aching, and is localized to the right and upper extremity. Patient reports no radiation. Patient started experiencing this day(s) (4) and it has been constant. No relieving factors improve symptom(s), No exacerbating factors reported . Patient notes no other symptoms.. Patient did receive the following treatments prior to arrival, other Related Data Home Medications Medication Instructions Recorded Confirmed ascorbic acid 1,000 1,000 mg PO PRN PRN 05/13/18 11/29/22 [id number] powder effervescent pack (Emergen-C) vitamin B complex (B 1 tab PO DAILY 05/06/21 11/29/22 Complex-Vitamin B12 tablet) zinc 50 mg tablet 50 mg PO DAILY 05/06/21 11/29/22 mupirocin 2 % topical ointment 1 applic topical BID-TID #15 grams 07/11/21 11/29/22 turmeric 400 mg capsule 400 mg PO DAILY 04/20/22 11/29/22 calcium carbonate 600 mg calcium 600 mg PO BID 09/20/22 11/29/22 (1,500 mg) tablet cholecalciferol (vitamin D3) 25 25 mcg PO DAILY 09/20/22 11/29/22 mcg (1,000 unit) capsule prednisone 20 mg tablet 17.5 mg PO DAILY 10/27/22 11/29/22 blood sugar diagnostic #100 ea 11/01/22 11/24/22 blood-glucose meter #1 ea 11/01/22 11/24/22 lancets #100 ea 11/01/22 11/24/22 amlodipine 5 mg tablet 5 mg PO DAILY 11/29/22 11/29/22 cephalexin 500 mg tablet 500 mg PO QID 7 days #28 tabs 11/29/22 metformin 500 mg tablet,extended 500 mg PO DAILY 11/29/22 11/29/22 release 24 hr tamsulosin 0.4 mg capsule (Flomax) 0.4 mg PO DAILY #90 tab-caps 11/29/22 Previous Rx's Medication Instructions Recorded mupirocin 2 % topical ointment 1 applic topical BID-TID #15 grams 07/11/21 blood sugar diagnostic #100 ea 11/01/22 blood-glucose meter #1 ea 11/01/22 lancets #100 ea 11/01/22 cephalexin 500 mg tablet 500 mg PO QID 7 days #28 tabs 11/29/22 tamsulosin 0.4 mg capsule (Flomax) 0.4 mg PO DAILY #90 tab-caps 11/29/22 Allergies Allergy/AdvReac Type Severity Reaction Status Date / Time amoxicillin [From Augmentin] AdvReac Intermediate vomiting, Verified 11/29/22 07:58 GI Upset atenolol AdvReac Intermediate off Verified 11/29/22 07:58 balance, dizzy clavulanic acid AdvReac Intermediate vomiting, Verified 11/29/22 07:58 [From Augmentin] GI Upset General Stated Complaint: Laceration ASIM: 3 Review of Systems Narrative: 6 systems reviewed and unremarkable except what is marked below. Integumentary/Breasts Skin/Breast: Reports as per HPI, Reports erythema and Reports wounds PFSH All Active Problems (Updated 11/29/22 @ 08:21 by Blake Fried NP) Cellulitis (Acute) Fracture of distal end of left radius (Acute 10/26/22) Anemia (Chronic ~08/2022) On prednisone therapy (Acute ~04/2022) Abnormal gait (Acute ~06/2022) PMR (polymyalgia rheumatica) (Acute ~04/2022) Elevated lipoprotein A level (Acute ~12/2021) Immunization refused (Acute ~02/2022) Hyperlipidemia (Chronic ~07/2021) Recommend statin 07/2021; Note Taker Reynaldo Read obtained lipoprotein a, elevated--> cardiology recomm ends consider statin 01/2022 Family history of prostate cancer in father (Chronic) Also PGF Peripheral neuropathy (Chronic 05/07/18) Ideopathic; [facility] [place] [facility] Impaired fasting glucose (Chronic 05/07/18) Monitor annual A1Cs; +fam hx DMT2 Hypertension (Chronic 05/07/18) Goal 135-145 (lower & he feels poor)--didn't tolerate Lisinopril Benign prostatic hyperplasia (Chronic 05/13/18) RX Flomax History of alcohol abuse (Chronic 05/07/18) Medical History Anxiety (05/07/18) Edema of lower extremity (05/07/18) Occurred x1, RX Furosemide and never reoccurred even off Furosemide GERD (gastroesophageal reflux disease) (05/07/18) Hepatomegaly (05/07/18) Resolved off EtOH Seborrheic dermatitis of scalp Tachycardia site monitor stable--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 Surgical History Appendectomy Tonsillectomy Family History Father , 73yo from metastatic prostate cancer Essential hypertension Heart disease Myocardial infarction Neoplasm Prostate Mother , early 70s diabetes complications Diabetes Paternal Grandfather , prostate cancer Neoplasm Prostate Social History Smoking/Tobacco Use Status: Former Tobacco Use Quit Date: 11/26/71 Smoking risk assessment performed?: Yes Alcohol Intake: current Alcohol Intake frequency: 0-2 drinks per day Alcohol type: beer Drug use: Never Substance use type: does not use Household members: none Housing: apartment Number of Children: 3 Communication Needs: Corrective Lenses 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 What is your relationship status?: Panel score (0-1 are the most socially isolated patients): 0 What type of physical activity do you participate in: walking Duration: 15-30 minutes/day Frequency: 3-4 times per week Seatbelt use: always Drive intox or 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 local combination truck driver: No Working smoke detector in home: Yes Fire extinguisher in home: Yes Carbon monox detector in home: Yes Do you feel safe at home: Yes Do you feel safe in your relationship?: Yes Exam Const General: cooperative, no acute distress and not ill appearing Orientation: alert, awake and oriented x3 Resp Effort & Inspection: normal respiratory effort, able to speak in complete sentences and no respiratory distress Cardio Rate: regular rate Rhythm: regular rhythm Neuro General: patient alert, patient awake, patient oriented x3, moves all extremities and no focal motor deficits Extrem General: normal exam except as noted Right upper extremity: full ROM, normal capillary refill and elbow/forearm Details: tenderness Location: of the mid-shaft forearm, abrasion forearm mid anterior Details: single and distal pulses intact Course Vital Signs Vital signs: Vital Signs Temperature 36.5 C 11/29/22 07:55 Pulse 97 H 11/29/22 07:55 Respiratory Rate 16 11/29/22 07:55 Blood Pressure 133/86 11/29/22 07:55 Pulse Oximetry 98 11/29/22 07:55 Temperature 36.5 C 11/29/22 07:55 Temperature Source Skin 11/29/22 07:55 Pulse 97 H 11/29/22 07:55 Respiratory Rate 16 11/29/22 07:55 Respiratory Effort 11/29/22 08:00 Blood Pressure 133/86 11/29/22 07:55 Blood Pressure Position Sitting 11/29/22 07:55 Pulse Oximetry 98 11/29/22 07:55 Oxygen Delivery Method Room Air 11/29/22 07:55 Oxygen Flow Rate 0 11/29/22 07:55 Pain Level 1 11/29/22 07:55
[2022-11-29] MEDS: Cephalexin 500 MG CAP PO (08:23)
== END 2022-11-29 08:43 | disposition home or self-care (01) ==
PROVIDERS: Emergency Provider Nurse Practitioner Family; PCP Nurse Practitioner Adult Health
DX: S51.811A Laceration without foreign body of right forearm, initial encounter (principal); W26.8XXA Contact with other sharp object(s), not elsewhere classified, initial encounter; L03.113 Cellulitis of right upper limb; E11.9 Type 2 diabetes mellitus without complications
CPT/HCPCS: 36416; 82962; 90471; 99284

== ENCOUNTER 2022-12-02 11:24 | Emergency (ER) | payer MEDICARE, MEDICAID, SELFPAY ==
[2022-12-02 11:29] VITALS: BP 138/82; PULSE 121; RESP 18; TEMP 36.3; O2SAT 99
--- NOTE | 2022-12-02 11:37 | W.ED.GENAD ---
Discharge Plan Disposition Patient Disposition: Home Condition: Stable Discharge Details Clinical Impression: Encounter for wound re-check, Cellulitis Primary Care Provider: Yesy Nagy ED Provider: Lolly Barrios Home Meds and New Rx's Prescriptions: New clindamycin HCl 150 mg capsule 450 mg PO TID 7 Days Qty: 63 0RF Continued vitamin B complex [B Complex-Vitamin B12] Tablet 1 tab PO DAILY Emergen-C 1,000 MG powder effervescent in packet 1,000 mg PO PRN PRN turmeric 400 mg capsule 400 mg PO DAILY Label Comments: Inflammation calcium carbonate 600 mg calcium (1,500 mg) tablet 600 mg PO BID cholecalciferol (vitamin D3) 25 mcg (1,000 unit) capsule 25 mcg PO DAILY prednisone 20 mg tablet 17.5 mg PO DAILY Rx Instructions: [facility] 09/14/22 Started taper Pt will start 17.5mg 10/19/22 for two weeks. 12/4 taper down to 15 mg x2 weeks, then 12.5 mg x 2 weeks, then 10 mg x2 weeks. Then taper down by 1 mg/month tamsulosin [Flomax] 0.4 mg capsule 0.4 mg PO DAILY Qty: 90 3RF Rx Instructions: Enlarged prostate metformin 500 mg tablet extended release 24 hr 500 mg PO DAILY Label Comments: TAKE ONE TABLET BY MOUTH EVERY DAY WITH FOOD amlodipine 5 mg tablet 5 mg PO DAILY Discontinued cephalexin 500 mg tablet 500 mg PO QID 7 Days Qty: 28 0RF No Action mupirocin 2 % ointment 1 applic topical BID-TID Qty: 15 0RF Rx Instructions: May substitute with cream if less expensive; use until lesion resolved zinc 50 mg tablet 50 mg PO DAILY (DME) lancets Misc See Rx Instructions .Route Qty: 100 3RF Rx Instructions: As directed E11.9 for daily monitoring for A1C <=7% One touch lancets (DME) blood-glucose meter Kit See Rx Instructions .Route Qty: 1 0RF Rx Instructions: ONE TOUCH METER As directed to check blood glucose daily. No insulin. DX:E11.9 to maintain Hba1c <7% (DME) blood sugar diagnostic Strip See Rx Instructions .Route Qty: 100 3RF Rx Instructions: One touch test strips As directed to check blood glucose daily. no insulin. DX:E11.9 to maintain Hba1c <7% Discharge Instructions Instructions: Cellulitis (ED), Acute Wounds (ED) Additional Instructions: Keep clean and dry. Stop applying the topical antibiotic ointment. Keep covered with a Band-Aid or similar during the day. Allowed to air dry at least 2 hours a day. Stop the cephalexin if desired. Please start the clindamycin that you were given here today. Take it with yogurt or probiotic 3 times daily. Follow up with primary care provider in 3-5 days. Return to ED sooner if any fever, vomiting, red streaks traveling up your arm or concerns. Increase oral fluids. Please take Tylenol or Ibuprofen with food every 4-6 hours as needed for pain and swelling. Referrals: Yesy Nagy NP [Primary Care Provider] - 5 days Medical Decision Making 72-year-old male presents to the ER for wound recheck. Patient was seen 3 days ago diagnosed with cellulitis of his right forearm was placed on cephalexin which she reports has been taking as prescribed. He is concerned because the wound is not healed and it seems to have some increased erythema surrounding it. He denies any fever chills body aches no axillary tenderness no significant red streaks noted on exam. I will change antibiotic to clindamycin. I did discuss home care with patient and instructed him to keep it clean and dry and cover with a Band-Aid. Patient was supplied a Band-Aid here in the department. I did instruct him to stop using the bacitracin. Informed by staff therapist that patient is requesting oxycodone for his arm. This was not given to the patient. Did instruct him to take Tylenol as needed for pain. Instructed on home care and wound care. Repeat heart rate is 98 per RN report. He did initially present tachycardic with a heart rate of 121. This time the cellulitis does not seem to be systemic, might be some subtle increased erythema no red streaks noted. This time is safe for patient be discharged home antibiotic changed. This text was generated using [employer]VivioLinkation system, please disregard any oddities of phrase or misspellings. HPI General Mode of arrival: ambulatory. Date/Time Provider Initiated Documentation: 12/02/22 11:27. Limitations to Documentation: no limitations. Information obtained by: patient, RN notes reviewed and old records reviewed. HPI Narrative: 72-year-old male presents to the ER for wound recheck. Patient was seen 3 days ago diagnosed with cellulitis of his right forearm was placed on cephalexin which she reports has been taking as prescribed. He is concerned because the wound is not healed and it seems to have some increased erythema surrounding it. He denies any fever chills body aches no axillary tenderness no significant red streaks noted on exam. Past medical history includes GERD, anxiety, hepatomegaly, hypertension, hyperlipidemia, type 2 diabetes. History of alcohol abuse. Related Data Home Medications Medication Instructions Recorded Confirmed ascorbic acid 1,000 1,000 mg PO PRN PRN 05/13/18 12/02/22 [id number] powder effervescent pack (Emergen-C) vitamin B complex (B 1 tab PO DAILY 05/06/21 12/02/22 Complex-Vitamin B12 tablet) zinc 50 mg tablet 50 mg PO DAILY 05/06/21 12/02/22 mupirocin 2 % topical ointment 1 applic topical BID-TID #15 grams 07/11/21 12/02/22 turmeric 400 mg capsule 400 mg PO DAILY 04/20/22 12/02/22 calcium carbonate 600 mg calcium 600 mg PO BID 09/20/22 12/02/22 (1,500 mg) tablet cholecalciferol (vitamin D3) 25 25 mcg PO DAILY 09/20/22 12/02/22 mcg (1,000 unit) capsule prednisone 20 mg tablet 17.5 mg PO DAILY 10/27/22 12/02/22 blood sugar diagnostic #100 ea 11/01/22 12/02/22 blood-glucose meter #1 ea 11/01/22 12/02/22 lancets #100 ea 11/01/22 12/02/22 amlodipine 5 mg tablet 5 mg PO DAILY 11/29/22 12/02/22 metformin 500 mg tablet,extended 500 mg PO DAILY 11/29/22 12/02/22 release 24 hr tamsulosin 0.4 mg capsule (Flomax) 0.4 mg PO DAILY #90 tab-caps 11/29/22 12/02/22 clindamycin HCl 150 mg capsule 450 mg PO TID 7 days #63 caps 12/02/22 Previous Rx's Medication Instructions Recorded mupirocin 2 % topical ointment 1 applic topical BID-TID #15 grams 07/11/21 blood sugar diagnostic #100 ea 11/01/22 blood-glucose meter #1 ea 11/01/22 lancets #100 ea 11/01/22 tamsulosin 0.4 mg capsule (Flomax) 0.4 mg PO DAILY #90 tab-caps 11/29/22 clindamycin HCl 150 mg capsule 450 mg PO TID 7 days #63 caps 12/02/22 Allergies Allergy/AdvReac Type Severity Reaction Status Date / Time amoxicillin [From Augmentin] AdvReac Intermediate vomiting, Verified 12/02/22 11:33 GI Upset atenolol AdvReac Intermediate off Verified 12/02/22 11:33 balance, dizzy clavulanic acid AdvReac Intermediate vomiting, Verified 12/02/22 11:33 [From Augmentin] GI Upset General Stated Complaint: Recheck ASIM: 3 Review of Systems All systems reviewed & are unremarkable except as noted in HPI and below Constitutional Constitutional: Denies body ache(s), Denies chills and Denies fever(s) Integumentary/Breasts Skin/Breast: Reports as per HPI and Reports wounds PFSH All Active Problems (Updated 12/02/22 @ 11:51 by Lolly Barrios NP) Cellulitis (Acute) Encounter for wound re-check (Acute) Fracture of distal end of left radius (Acute 10/26/22) Anemia (Chronic ~08/2022) On prednisone therapy (Acute ~04/2022) Abnormal gait (Acute ~06/2022) PMR (polymyalgia rheumatica) (Acute ~04/2022) Elevated lipoprotein A level (Acute ~12/2021) Immunization refused (Acute ~02/2022) Hyperlipidemia (Chronic ~07/2021) Recommend statin 07/2021; 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[employer] Read obtained lipoprotein a, elevated--> cardiology recommends consider statin 01/2022 Family history of prostate cancer in father (Chronic) Also PGF Peripheral neuropathy (Chronic 05/07/18) Ideopathic; [facility] [place] Impaired fasting glucose (Chronic 05/07/18) Monitor annual A1Cs; +fam hx DMT2 Hypertension (Chronic 05/07/18) Goal 135-145 (lower & he feels poor)--didn't tolerate Lisinopril Benign prostatic hyperplasia (Chronic 05/13/18) RX Flomax History of alcohol abuse (Chronic 05/07/18) Medical History Anxiety (05/07/18) Edema of lower extremity (05/07/18) Occurred x1, RX Furosemide and never reoccurred even off Furosemide GERD (gastroesophageal reflux disease) (05/07/18) Hepatomegaly (05/07/18) Resolved off EtOH Seborrheic dermatitis of scalp 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 Surgical History Appendectomy Tonsillectomy Family History Father , 73yo from metastatic prostate cancer Essential hypertension Heart disease Myocardial infarction Neoplasm Prostate Mother , early 70s diabetes complications Diabetes Paternal Grandfather , prostate cancer Neoplasm Prostate Social History Smoking/Tobacco Use Status: Former Tobacco Use Quit Date: 11/26/71 Smoking risk assessment performed?: Yes Alcohol Intake: current Alcohol Intake frequency: 0-2 drinks per day Alcohol type: beer Drug use: Never Substance use type: does not use Household members: none Housing: apartment Number of Children: 3 Communication Needs: Corrective Lenses 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 What is your relationship status?: Panel score (0-1 are the most socially isolated patients): 0 What type of physical activity do you participate in: walking Duration: 15-30 minutes/day Frequency: 3-4 times per week Seatbelt use: always Drive intox or 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 bulk delivery driver: No Working smoke detector in home: Yes Fire extinguisher in home: Yes Carbon monox detector in home: Yes Do you feel safe at home: Yes Do you feel safe in your relationship?: Yes Exam Const General: cooperative, comfortable, well developed and well groomed Nutritional Appearance: average body habitus and well nourished Orientation: alert, awake and oriented x3 Extrem Right upper extremity: elbow/forearm (Wound see diagram) Elbow/forearm/wrist images: 1. Wound measuring approximately [id number] surrounding erythema measuring approximately 2cm x2cm No red streaks noted, no drainage. Course Vital Signs Vital signs: Vital Signs Temperature 36.3 C L 12/02/22 11:29 Pulse 121 H 12/02/22 11:29 Respiratory Rate 18 12/02/22 11:29 Blood Pressure 138/82 12/02/22 11:29 Pulse Oximetry 99 12/02/22 11:29 Temperature 36.3 C L 12/02/22 11:29 Temperature Source Temporal Artery Scan 12/02/22 11:29 Pulse 121 H 12/02/22 11:29 Respiratory Rate 18 12/02/22 11:29 Respiratory Effort Non-Labored 12/02/22 11:31 Blood Pressure 138/82 12/02/22 11:29 Blood Pressure Position Sitting 12/02/22 11:29 Pulse Oximetry 99 12/02/22 11:29 Oxygen Delivery Method Room Air 12/02/22 11:29 Oxygen Flow Rate 0 12/02/22 11:29 Pain Level 4 12/02/22 11:29 PAWSS Have you Been Recently Intoxicated or Drunk Within the Last 30 days?: No Have you Ever Experienced Previous Episodes of Alcohol Withdrawal?: No Have you ever Experienced Withdrawal Seizures?: No Have you ever Experienced Delirium Tremens(DT)s?: No Have you ever undergone Alcohol Rehabilitation Treatment (i.e, inpt ot outpatient treatment programs)?: No Have you ever Experienced Blackouts?: No Have you ever Combined Alcohol with other Downers within the last 90 days?: No Have you ever Combined Alcohol with any other Substance of Abuse during the last 90 days?: No Result: 0
--- NOTE | 2022-12-02 11:42 | NUR.NOTE ---
Nursing Note: ASIM 3 entered in error. Changed to ASIM 4
[2022-12-02] MEDS: Clindamycin 150 MG CAP 450 MG PO (11:48)
[2022-12-02 11:52] VITALS: PULSE 98
== END 2022-12-02 11:58 | disposition home or self-care (01) ==
PROVIDERS: Emergency Provider Registered Nurse Emergency; PCP Nurse Practitioner Adult Health
DX: L03.113 Cellulitis of right upper limb (principal)
CPT/HCPCS: 99283

== ENCOUNTER 2022-12-14 11:38 | Outpatient (CLI) | payer MEDICARE, MEDICAID, SELFPAY ==
--- NOTE | 2022-12-14 09:45 | DI.RAD_ITS ---
Exam(s) XR WRIST LT LIMITED EXAM: XR WRIST LT LIMITED CLINICAL HISTORY: F/U LEFT DISTAL RADIUS FRACTURE. TECHNIQUE: 2D digital imaging was performed. COMPARISON: CR XR WRIST LT LIMITED from 11/24/2022 FINDINGS: Two views: Again noted is healing fracture site in the distal radius appearing similar to previous. No displace ment. No angulation. No significant ulnar variance. Scapholunate distance is again noted be somewhat increased which may indicate ligamentous injury the interosseous ligament at this level. IMPRESSION: DATA REPOSITORY: RADIATION DOSE DELIVERED:
== END 2022-12-14 11:39 | disposition home or self-care (01) ==
LOC: DIORS 11:38
PROVIDERS: PCP Nurse Practitioner Adult Health; Referring Provider Nurse Practitioner Adult Health; Visit Provider Student in an Organized Health Care Education/Training Program
DX: S52.502D Unspecified fracture of the lower end of left radius, subsequent encounter for closed fracture with routine healing (principal); S63.8X2D Sprain of other part of left wrist and hand, subsequent encounter; W00.0XXD Fall on same level due to ice and snow, subsequent encounter
CPT/HCPCS: 99213; 73100

== ENCOUNTER 2022-12-20 02:02 | Outpatient (CLI) | payer MEDICARE, MEDICAID, SELFPAY ==
[2022-12-20 12:39] LABS: Abs Immature Grans 0.05 10^3/uL (0.0-0.06); Absolute Basophil Count 0.01 10^3/uL (0.0-0.2); Absolute Eosinophil Count 0.01 10^3/uL (0.0-0.7); Absolute Lymphocyte Count 1.18 10^3/uL (1.2-3.4); Absolute Neutrophil Count 12.67 10^3/uL (1.2-6.7); Basophils % 0.1; Eosinophils % 0.1; HCT 38.6 % (40.0-50.0); HGB 13.2 g/dL (13.5-17.5); Immature Grans % 0.3; Lymphocytes % 8.2; MCH 31.8 pg (27.0-33.0); MCHC 34.2 % (32.0-36.0); MCV 93 fL (80-95); MPV 9.1 fL (8.0-11.0); Monocytes % 3.1; Neutrophils % 88.2; Platelet Count 322 10^3/uL (130-400); RBC 4.15 10^6/uL (4.36-5.78); RDW 13.2 % (11.8-14.1); RDW-SD 44.8 fL; WBC 14.36 10^3/uL (4.4-10.8)
[2022-12-20 12:42] LABS: Absolute Monocyte Count 0.45 10^3/uL (0.1-0.8)
[2022-12-20 13:06] LABS: Hemoglobin A1C 7.1 % (<5.7)
[2022-12-20 13:26] LABS: Anion Gap 7.4 mmol/L (3-11); BUN 25 mg/dL (7-18); CO2 29.6 mmol/L (21.0-32.0); CREATININE 1.4 mg/dL (0.70-1.30); Calcium 10.1 mg/dL (8.5-10.1); Chloride 100 mmol/L (98-107); Estimated GFR 52.74 (mL/min/1.73m2); Glucose 207 mg/dL (74-106); Potassium 3.8 mmol/L (3.5-5.1); Sodium 137 mmol/L (136-145)
[2022-12-20 13:44] LABS: Ferritin 258 ng/mL (26-388)
== END 2022-12-20 02:03 | disposition home or self-care (01) ==
LOC: LBO 02:02
PROVIDERS: PCP Nurse Practitioner Adult Health; Visit Provider Nurse Practitioner Adult Health
DX: D64.9 Anemia, unspecified (principal); I10 Essential (primary) hypertension; R73.01 Impaired fasting glucose; M35.3 Polymyalgia rheumatica; Z79.52 Long term (current) use of systemic steroids
CPT/HCPCS: 36415; 80048; 82728; 83036; 85025

== ENCOUNTER 2023-01-16 09:26 | Outpatient (CLI) | payer MEDICARE, MEDICAID, SELFPAY ==
[2023-01-16 09:59] LABS: ESR 12 mm/hr (0-20)
[2023-01-16 10:17] LABS: Anion Gap 8.4 mmol/L (3-11); BUN 20 mg/dL (7-18); CO2 28.6 mmol/L (21.0-32.0); CREATININE 1.4 mg/dL (0.70-1.30); Calcium 9.8 mg/dL (8.5-10.1); Chloride 101 mmol/L (98-107); Estimated GFR 52.74 (mL/min/1.73m2); Glucose 223 mg/dL (74-106); Potassium 4.4 mmol/L (3.5-5.1); Sodium 138 mmol/L (136-145)
[2023-01-16 10:20] LABS: C-Reactive Protein 2.22 mg/dL (0.0-0.3)
== END 2023-01-16 09:27 | disposition home or self-care (01) ==
PROVIDERS: PCP Nurse Practitioner Adult Health; Visit Provider Internal Medicine
DX: E09.9 Drug or chemical induced diabetes mellitus without complications (principal); I10 Essential (primary) hypertension; N40.0 Benign prostatic hyperplasia without lower urinary tract symptoms; R79.89 Other specified abnormal findings of blood chemistry; R79.9 Abnormal finding of blood chemistry, unspecified; T38.0X5A Adverse effect of glucocorticoids and synthetic analogues, initial encounter; M31.6 Other giant cell arteritis
CPT/HCPCS: 36415; 80048; 85652; 86140

== ENCOUNTER 2023-02-07 09:55 | Outpatient (CLI) | payer MEDICARE, MEDICAID, SELFPAY ==
[2023-02-07 14:12] LABS: ESR 11 mm/hr (0-20)
[2023-02-07 14:17] LABS: C-Reactive Protein 0.09 mg/dL (0.0-0.3)
== END 2023-02-07 09:56 | disposition home or self-care (01) ==
LOC: LBO 10:14
PROVIDERS: PCP Nurse Practitioner Adult Health; Visit Provider Internal Medicine
DX: M31.6 Other giant cell arteritis (principal); Z79.899 Other long term (current) drug therapy; Z51.81 Encounter for therapeutic drug level monitoring
CPT/HCPCS: 36415; 85652; 86140

== ENCOUNTER → 2023-02-13 09:51 | Outpatient (BNVA) | payer MEDICARE, MEDICAID, SELFPAY | PROVIDERS: PCP Nurse Practitioner Adult Health; Referring Provider Nurse Practitioner Adult Health; Visit Provider Surgery | DX: K64.9 Unspecified hemorrhoids (principal) | CPT/HCPCS: 99202; 99213 ==

== ENCOUNTER 2023-03-05 02:09 | Outpatient (CLI) | payer MEDICARE, MEDICAID, SELFPAY ==
[2023-03-05 15:20] LABS: Abs Immature Grans 0.04 10^3/uL (0.0-0.06); Absolute Basophil Count 0.02 10^3/uL (0.0-0.2); Absolute Eosinophil Count 0.01 10^3/uL (0.0-0.7); Absolute Lymphocyte Count 1.08 10^3/uL (1.2-3.4); Absolute Monocyte Count 0.35 10^3/uL (0.1-0.8); Basophils % 0.2; Eosinophils % 0.1; HCT 41.6 % (40.0-50.0); HGB 13.9 g/dL (13.5-17.5); Immature Grans % 0.4; Lymphocytes % 10.3; MCH 30.8 pg (27.0-33.0); MCHC 33.4 % (32.0-36.0); MCV 92 fL (80-95); MPV 8.7 fL (8.0-11.0); Monocytes % 3.3; Neutrophils % 85.7; Platelet Count 225 10^3/uL (130-400); RBC 4.52 10^6/uL (4.36-5.78); RDW 13.5 % (11.8-14.1); RDW-SD 45.7 fL
[2023-03-05 16:01] LABS: ALT 25 U/L (16-63); AST 9 U/L (15-37); Albumin 3.8 g/dL (3.4-5.0); Alkaline Phosphatase 52 U/L (46-116); Anion Gap 6.8 mmol/L (3-11); BUN 33 mg/dL (7-18); Bilirubin, Total 0.3 mg/dL (0.2-1.0); CO2 29.2 mmol/L (21.0-32.0); CREATININE 1.5 mg/dL (0.70-1.30); Calcium 9.5 mg/dL (8.5-10.1); Chloride 102 mmol/L (98-107); Estimated GFR 48.55 (mL/min/1.73m2); Glucose 176 mg/dL (74-106); Potassium 4.4 mmol/L (3.5-5.1); Sodium 138 mmol/L (136-145); Total Protein 6.9 g/dL (6.4-8.2)
[2023-03-05 16:04] LABS: INR 0.9 (0.9-1.1); Prothrombin Time 9.5 sec (9.3-11.0)
== END 2023-03-05 02:10 | disposition home or self-care (01) ==
LOC: LBO 02:11
PROVIDERS: PCP Nurse Practitioner Adult Health; Referring Provider Nurse Practitioner Adult Health; Visit Provider Nurse Practitioner Adult Health
DX: E11.65 Type 2 diabetes mellitus with hyperglycemia (principal); R58 Hemorrhage, not elsewhere classified; R79.89 Other specified abnormal findings of blood chemistry
CPT/HCPCS: 36415; 80053; 85025; 85610

== ENCOUNTER 2023-03-20 00:39 | Outpatient (CLI) | payer MEDICARE, MEDICAID, SELFPAY ==
--- NOTE | 2023-03-20 08:15 | DI.US_ITS ---
Exam(s) US RENAL EXAM: US RENAL CLINICAL HISTORY: new aberrant renal labs; obsTructive path? vs. otheR,R79.89. TECHNIQUE: Ayala scale, color and spectral Doppler were used. COMPARISON: US ABDOMEN ULTRASOUND (P) from 01/18/2018 FINDINGS: Renal size in cm: Right: 10.1. Left: 11. Echogenicity: Normal. Hydronephrosis: No. Cyst or mass: No. Nephrolithiasis: There is a 0.5 cm echogenic focus in the right kidney consistent with a nonobstructi ng stone. Other findings: None. Bladder:Normal. Ureteral jets: Right: Visualized and unremarkable. Left: Visualized and unremarkable. Prevoid vol:460 cc Postvoid vol:360 cc Prostate: 18 cc Renal color flow: Symmetric and within normal limits. IMPRESSION: 1. Right nephrolithiasis. No hydronephrosis. 2. Large urinary bladder postvoid volume. DATA REPOSITORY:
== END 2023-03-20 00:59 ==
LOC: DI 00:39
PROVIDERS: PCP Nurse Practitioner Adult Health; Visit Provider Nurse Practitioner Adult Health
DX: R79.89 Other specified abnormal findings of blood chemistry (principal)
CPT/HCPCS: 76770

== ENCOUNTER 2023-04-09 03:05 | Outpatient (CLI) | payer MEDICARE, MEDICAID, SELFPAY ==
[2023-04-09 11:55] LABS: Abs Immature Grans 0.04 10^3/uL (0.0-0.06); Absolute Basophil Count 0.03 10^3/uL (0.0-0.2); Absolute Eosinophil Count 0.05 10^3/uL (0.0-0.7); Absolute Lymphocyte Count 2.32 10^3/uL (1.2-3.4); Absolute Monocyte Count 0.87 10^3/uL (0.1-0.8); Absolute Neutrophil Count 5.64 10^3/uL (1.2-6.7); Basophils % 0.3; Eosinophils % 0.6; HCT 41.6 % (40.0-50.0); HGB 14.3 g/dL (13.5-17.5); Immature Grans % 0.4; Lymphocytes % 25.9; MCH 31.1 pg (27.0-33.0); MCHC 34.4 % (32.0-36.0); MCV 90 fL (80-95); MPV 9.3 fL (8.0-11.0); Monocytes % 9.7; Neutrophils % 63.1; Platelet Count 213 10^3/uL (130-400); RDW 14.1 % (11.8-14.1); RDW-SD 46.7 fL; WBC 8.95 10^3/uL (4.4-10.8)
[2023-04-09 11:58] LABS: ESR 5 mm/hr (0-20)
[2023-04-09 12:09] LABS: ALT 29 U/L (16-63); AST 15 U/L (15-37); Albumin 3.8 g/dL (3.4-5.0); Alkaline Phosphatase 50 U/L (46-116); BUN 20 mg/dL (7-18); Bilirubin, Total 0.5 mg/dL (0.2-1.0); CREATININE 1.2 mg/dL (0.70-1.30); Calcium 9.2 mg/dL (8.5-10.1); Calculated LDL 136 mg/dL (<100); Chloride 103 mmol/L (98-107); Cholesterol 246 mg/dL (<200); Estimated GFR 63.46 (mL/min/1.73m2); Glucose 126 mg/dL (74-106); HDL Cholesterol 68 mg/dL (40-60); Potassium 4.1 mmol/L (3.5-5.1); Sodium 142 mmol/L (136-145); Triglyceride 214 mg/dL (<150)
[2023-04-09 12:18] LABS: C-Reactive Protein < 0.05 mg/dL (0.0-0.3)
== END 2023-04-09 03:06 | disposition home or self-care (01) ==
PROVIDERS: PCP Nurse Practitioner Adult Health; Visit Provider Internal Medicine
DX: M31.6 Other giant cell arteritis (principal); E78.5 Hyperlipidemia, unspecified; D84.9 Immunodeficiency, unspecified; Z79.899 Other long term (current) drug therapy; Z51.81 Encounter for therapeutic drug level monitoring
CPT/HCPCS: 36415; 80053; 80061; 85652; 85025; 86140

== ENCOUNTER 2023-04-19 12:06 | Emergency (ER) | payer MEDICARE, MEDICAID, SELFPAY ==
[2023-04-19 12:09] VITALS: BP 148/83; PULSE 82; RESP 16; TEMP 36.8; O2SAT 98
[2023-04-19] MEDS: Cephalexin 500 MG CAP PO (14:03)
[2023-04-19] MEDS: Bupivacaine 0.5% Pres-Free 30 ML VIAL IJ (14:03)
--- NOTE | 2023-04-19 14:32 | ED.GENADUL_ITS ---
Discharge Plan Disposition Patient Disposition: Home Condition: Stable Discharge Details Clinical Impression: Paronychia of finger of right hand, Hyperglycemia Primary Care Provider: Yesy Nagy ED Provider: Vladimir Lucas Home Meds and New Rx's Prescriptions: Continued tocilizumab 162 mg/0.9 mL pen injector 162 mg subcut QWEEK tamsulosin [Flomax] 0.4 mg capsule 0.8 mg PO DAILY Qty: 180 3RF Rx Instructions: Enlarged prostate; dose increase 03/29/2023 vitamin B complex [B Complex-Vitamin B12] Tablet 1 tab PO DAILY zinc 50 mg tablet 50 mg PO DAILY metformin 500 mg tablet extended release 24 hr 500 mg PO DAILY Qty: 90 2RF Rx Instructions: steroid induced diabetes aspirin 325 mg tablet 325 mg PO DAILY Hold Instructions: Changed by Provider hydrocortisone 2.5 % cream with perineal applicator 1 applic MD DAILY PRN (Reason: hemorrhoids) Qty: 30 0RF ciclopirox 8 % solution 1 applic topical QHS Qty: 6.6 3RF Rx Instructions: Apply to affected toenails nightly for up to 1year. Clean nails with alcohol q7d. Emergen-C 1,000 MG powder effervescent in packet 1,000 mg PO PRN PRN calcium carbonate 600 mg calcium (1,500 mg) tablet 600 mg PO BID cholecalciferol (vitamin D3) 25 mcg (1,000 unit) capsule 25 mcg PO DAILY (DME) lancets Misc See Rx Instructions .Route Qty: 100 3RF Rx Instructions: As directed E11.9 for daily monitoring for A1C <=7% One touch lancets (DME) blood-glucose meter Kit See Rx Instructions .Route Qty: 1 0RF Rx Instructions: ONE TOUCH METER As directed to check blood glucose daily. No insulin. DX:E11.9 to maintain Hba1c <7% (DME) blood sugar diagnostic Strip See Rx Instructions .Route Qty: 100 3RF Rx Instructions: One touch test strips As directed to check blood glucose daily. no insulin. DX:E11.9 to maintain Hba1c <7% amlodipine 5 mg tablet 5 mg PO DAILY Qty: 90 3RF ketoconazole 2 % shampoo 1 applic TP .2x/week Qty: 120 2RF Rx Instructions: Apply 2x/week for 8 weeks then PRN dandruff prednisone 20 mg tablet 8 mg PO DAILY Rx Instructions: 5/18/23 Rheumatology - Continue taper 02/23/23[place] [place] note: prednisone to 25mg x1 wk then 20mg x1 wk then 15mg x1 wk then 12.5mg x1 wk, then 10mg x1 wk and on. cc Discharge Instructions Instructions: Paronychia (ED) Additional Instructions: Please perform warm soaks 3 times a day for the next 1 week. Continue Bactrim as prescribed. Please contact your primary care physician to arrange follow-up. Your blood sugar was elevated today at 184. Be sure to discuss this with your doctor tomorrow. I am concerned that your elevated sugar is contributing to infections. Your doctor may wish to discontinue or initiate additional m edication. Return to the ER immediately for any worsening or new concerning symptoms. 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 Patient is on prednisone for giant cell arteritis. He is currently on Bactrim for eye infection. Incision and drainage was performed with digital block without complication. Considered hyperglycemia. Fingerstick blood sugar Usual customary discharge instructions reviewed with the patient. Encouraged to continue his Bactrim as prescribed. He was encouraged to follow-up with his PCP. HPI General Mode of arrival: ambulatory . Date/Time Provider Initiated Documentation: 04/19/23 13:17 . Information obtained by: patient . HPI Narrative: 72-year-old male here with right fourth digit pain and swelling over the past few days. Swelling is progressive. Patient notes he may have jammed his nail a couple weeks ago. Related Data Home Medications Medication Instructions Recorded Confirmed ascorbic acid 1,000 1,000 mg PO PRN PRN 05/13/18 04/19/23 [id number] powder effervescent pack (Emergen-C) vitamin B complex (B 1 tab PO DAILY 05/06/21 04/19/23 Complex-Vitamin B12 tablet) zinc 50 mg tablet 50 mg PO DAILY 05/06/21 04/19/23 calcium carbonate 600 mg calcium 600 mg PO BID 09/20/22 04/19/23 (1,500 mg) tablet cholecalciferol (vitamin D3) 25 25 mcg PO DAILY 09/20/22 04/19/23 mcg (1,000 unit) capsule blood sugar diagnostic #100 ea 11/01/22 04/19/23 blood-glucose meter #1 ea 11/01/22 04/19/23 lancets #100 ea 11/01/22 04/19/23 metformin 500 mg tablet,extended 500 mg PO DAILY #90 tabs 01/01/23 04/19/23 release 24 hr amlodipine 5 mg tablet 5 mg PO DAILY #90 tabs 01/22/23 04/19/23 tocilizumab 162 mg/0.9 mL 162 mg subcut QWEEK 02/01/23 04/19/23 subcutaneous pen injector aspirin 325 mg tablet 325 mg PO DAILY 02/13/23 04/19/23 hydrocortisone 2.5 % topical cream 1 applic MD DAILY PRN hemorrhoids 02/13/23 04/19/23 with perineal applicator #30 grams ketoconazole 2 % shampoo 1 applic topical .2x/week #120 mL 02/19/23 04/19/23 ciclopirox 8 % topical solution 1 applic topical QHS #6.6 mL 03/01/23 04/19/23 tamsulosin 0.4 mg capsule (Flomax) 0.8 mg PO DAILY #180 tab-caps 03/29/23 04/19/23 prednisone 20 mg tablet 8 mg PO DAILY 04/13/23 04/19/23 Previous Rx's Medication Instructions Recorded blood sugar diagnostic #100 ea 11/01/22 blood-glucose meter #1 ea 11/01/22 lancets #100 ea 11/01/22 metformin 500 mg tablet,extended 500 mg PO DAILY #90 tabs 01/01/23 release 24 hr amlodipine 5 mg tablet 5 mg PO DAILY #90 tabs 01/22/23 hydrocortisone 2.5 % topical cream 1 applic MD DAILY PRN hemorrhoids 02/13/23 with perineal applicator #30 grams ketoconazole 2 % shampoo 1 applic topical .2x/week #120 mL 02/19/23 ciclopirox 8 % topical solution 1 applic topical QHS #6.6 mL 03/01/23 tamsulosin 0.4 mg capsule (Flomax) 0.8 mg PO DAILY #180 tab-caps 03/29/23 Allergies Allergy/AdvReac Type Severity Reaction Status Date / Time amoxicillin [From Augmentin] AdvReac Intermediate vomiting, Verified 04/19/23 12:14 GI Upset atenolol AdvReac Intermediate off Verified 04/19/23 12:14 balance, dizzy clavulanic acid AdvReac Intermediate vomiting, Verified 04/19/23 12:14 [From Augmentin] GI Upset General Stated Complaint: Cellulitis ASIM: 4 PFSH All Active Problems (Updated 04/19/23 @ 15:00 by Vladimir Lucas MD) Paronychia of finger of right hand (Acute) Hyperglycemia (Acute) Immunosuppressed status (Acute) Elevated serum creatinine (Acute) Steroid-induced diabetes (Acute ~09/2022) GCA (giant cell arteritis) (Acute ~11/2022) [facility] [place]--RX Actremra 01/2023 Anemia (Chronic ~08/2022) On prednisone therapy (Acute ~04/2022) Abnormal gait (Acute ~06/2022) Peripheral neuropathy + vestibular ([facility] [place] 01/2023) PMR (polymyalgia rheumatica) (Acute ~04/2022) Elevated lipoprotein A level (Acute ~12/2021) Hyperlipidemia (Chronic ~07/2021) Recommend statin 07/2021; 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 Reynaldo Read obtained lipoprotein a, elevated--> cardiology recommends consider statin 01/2022 Family history of prostate cancer in father (Chronic) Also PGF Peripheral neuropathy (Chronic 05/07/18) EtOH related; [facility] [place] [facility] 2017 & 2022 Impaired fasting glucose (Chronic 05/07/18) Monitor annual A1Cs; +fam hx DMT2 Hypertension (Chronic 05/07/18) Goal 135-145 (lower & he feels poor)--didn't tolerate Lisinopril Benign prostatic hyperplasia (Chronic 05/13/18) RX Flomax History of alcohol abuse (Chronic 05/07/18) Medical History Anxiety (05/07/18) Edema of lower extremity (05/07/18) Occurred x1, RX Furosemide and never reoccurred even off Furosemide Fracture of distal end of left radius (10/26/22) GERD (gastroesophageal reflux disease) (05/07/18) Hepatomegaly (05/07/18) Resolved off EtOH Immunization refused (~02/2022) Left scapholunate ligament tear Seborrheic dermatitis of scalp 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 Surgical History Appendectomy Tonsillectomy Family History Father , 73yo from metastatic prostate cancer Essential hypertension Heart disease Myocardial infarction Neoplasm Prostate Mother , early 70s diabetes complications Diabetes Paternal Grandfather , prostate cancer Neoplasm Prostate Social History Smoking/Tobacco Use Status: Former Tobacco Use Quit Date: 11/26/71 Smoking risk assessment performed?: Yes Alcohol Intake: current Alcohol Intake frequency: 0-2 drinks per day Alcohol type: beer Drug use: Never Substance use type: does not use Household members: none Housing: apartment Number of Children: 3 Communication Needs: Corrective Lenses 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 Current gender identity: male What is your relationship status?: Panel score (0-1 are the most socially isolated patients): 0 What type of physical activity do you participate in: walking Duration: 15-30 minutes/day Frequency: 3-4 times per week Seatbelt use: always Drive intox or 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 race car driver: No Working smoke detector in home: Yes Fire extinguisher in home: Yes Carbon monox detector in home: Yes Do you feel safe at home: Yes Do you feel safe in your relationship?: Yes Exam Extrem Right upper extremity: hand (4th digit paronychia with damaged nail) Course Vital Signs Vital signs: Vital Signs Temperature 36.8 C 04/19/23 12:09 Pulse 82 04/19/23 12:09 Respiratory Rate 16 04/19/23 12:09 Blood Pressure 148/83 H 04/19/23 12:09 Pulse Oximetry 98 04/19/23 12:09 Temperature 36.8 C 04/19/23 12:09 Temperature Source Oral 04/19/23 12:09 Pulse 82 04/19/23 12:09 Respiratory Rate 16 04/19/23 12:09 Respiratory Effort Non-Labored 04/19/23 12:12 Blood Pressure 148/83 H 04/19/23 12:09 Blood Pressure Position Supine 04/19/23 12:09 Pulse Oximetry 98 04/19/23 12:09 Oxygen Delivery Method Room Air 04/19/23 12:09 Oxygen Flow Rate 0 04/19/23 12:09 Pain Level 4 04/19/23 12:09 Procedures Abscess I/D Site: Hand Side (if applicable): Right Technique: Incised with #11 Blade Irrigation: No Packing used?: None Nerve Block Nerve Block 1: Time out performed: Yes Local Anesthetic: Bupivicaine 0.5% Amount of anesthesia used (mL): 2 Side: right Nerve Blocks: digital (4th) Procedure Successful: Yes Patient Tolerated Procedure: well Complications: none Additional Comments: verbal informed consent obtained PAWSS Have you Been Recently Intoxicated or Drunk Within the Last 30 days?: No Have you Ever Experienced Previous Episodes of Alcohol Withdrawal?: No Have you ever Experienced Withdrawal Seizures?: No Have you ever Experienced Delirium Tremens(DT)s?: No Have you ever undergone Alcohol Rehabilitation Treatment (i.e, inpt ot outpatient treatment programs)?: No Have you ever Experienced Blackouts?: No Have you ever Combined Alcohol with other Downers within the last 90 days?: No Have you ever Combined Alcohol with any other Substance of Abuse during the last 90 days?: No Positive Blood Alcohol level on Presentation? [PCS.BAL]: No Evidence of Increased Autonomic Activity (i.e. HR>120, tremor, sweating, agitation, nausea)?: No Result: 0
== END 2023-04-19 15:14 | disposition home or self-care (01) ==
PROVIDERS: Emergency Provider Student in an Organized Health Care Education/Training Program; PCP Nurse Practitioner Adult Health
DX: L03.011 Cellulitis of right finger (principal); R73.9 Hyperglycemia, unspecified
CPT/HCPCS: 10060; 36416; 64450; 82962; 99284

== ENCOUNTER 2023-04-20 00:10 | Outpatient (CLI) | payer MEDICARE, MEDICAID, SELFPAY ==
--- NOTE | 2023-04-20 10:10 | DI.DEXA_ITS ---
Exam(s) XR DEXA BONE DENSITY W/WO RACHEAL EXAM: XR DEXA BONE DENSITY W/WO RACHEAL CLINICAL HISTORY: Assess bones--on high dose Prednisone for PMR,Z79.52 TECHNIQUE: COMPARISON: No exams were available for comparison FINDINGS: Lateral Spine Image: Unremarkable. No compression deformities identified. Left hip: Total T-Score: -1.8 Total Z-Score: -1.0 T- and Z-scores: Findings are consistent with osteopenia. There is no evidence of osteoporosis. Lumbar Spine: Total T-Score: -0.6 Total Z-Score: 0.4 T- and Z-scores: Within normal limits. There is no evidence of osteoporosis. IMPRESSION: No evidence of osteoporosis.
== END 2023-04-20 00:30 ==
LOC: DI 00:10
PROVIDERS: PCP Nurse Practitioner Adult Health; Visit Provider Nurse Practitioner Adult Health
DX: M35.3 Polymyalgia rheumatica (principal); Z79.52 Long term (current) use of systemic steroids; Z13.820 Encounter for screening for osteoporosis
CPT/HCPCS: 77080

== ENCOUNTER 2023-04-25 04:35 | Outpatient (CLI) | payer MEDICARE, MEDICAID, SELFPAY ==
[2023-04-25 09:49] LABS: Anion Gap 9.5 mmol/L (3-11); BUN 23 mg/dL (7-18); CO2 26.5 mmol/L (21.0-32.0); CREATININE 1.5 mg/dL (0.70-1.30); Chloride 106 mmol/L (98-107); Estimated GFR 48.55 (mL/min/1.73m2); Glucose 157 mg/dL (74-106); Potassium 4.1 mmol/L (3.5-5.1); Sodium 142 mmol/L (136-145)
== END 2023-04-25 04:36 | disposition home or self-care (01) ==
LOC: LBO 04:36
PROVIDERS: PCP Nurse Practitioner Adult Health; Visit Provider Nurse Practitioner Adult Health
DX: R79.89 Other specified abnormal findings of blood chemistry (principal); I10 Essential (primary) hypertension; E78.5 Hyperlipidemia, unspecified; R73.01 Impaired fasting glucose
CPT/HCPCS: 10060; 36415; 80048; 80053; 99283; 73130; 85025; 86140; 87070; 87205

== ENCOUNTER 2023-04-25 09:07 | Emergency (ER) | payer MEDICARE, MEDICAID, SELFPAY ==
[2023-04-25 09:08] VITALS: BP 139/66; PULSE 79; RESP 16; TEMP 36.7; O2SAT 98
--- NOTE | 2023-04-25 09:15 | DI.RAD_ITS ---
Exam(s) XR HAND RT COMPLETE EXAM: XR HAND RT COMPLETE CLINICAL HISTORY: 2nd and 3rd digit pain distally, pus under nails. TECHNIQUE: 2D digital imaging was performed. Three views. COMPARISON: No exams were available for comparison FINDINGS: BONES: No acute fracture is present. No bony destructive lesion is seen. JOINTS: No dislocation present. Mild degenerative changes. SOFT TISSUE: Vascular calcifications. Swelling near the nail bed of the middle and ring fingers. No calcifications or foreign bodies. IMPRESSION: Soft tissue swelling under the nail beds of the middle and ring fingers. No acute bony abnormality o r foreign body. DATA REPOSITORY: RADIATION DOSE DELIVERED:
[2023-04-25 09:29] LABS: Abs Immature Grans 0.02 10^3/uL (0.0-0.06); Absolute Basophil Count 0.03 10^3/uL (0.0-0.2); Absolute Eosinophil Count 0.08 10^3/uL (0.0-0.7); Absolute Monocyte Count 0.74 10^3/uL (0.1-0.8); Absolute Neutrophil Count 2.51 10^3/uL (1.2-6.7); Basophils % 0.5; Eosinophils % 1.3; HCT 41.9 % (40.0-50.0); HGB 14.3 g/dL (13.5-17.5); Immature Grans % 0.3; Lymphocytes % 43.5; MCH 31.7 pg (27.0-33.0); MCHC 34.1 % (32.0-36.0); MCV 93 fL (80-95); MPV 9.4 fL (8.0-11.0); Monocytes % 12.4; Platelet Count 225 10^3/uL (130-400); RBC 4.51 10^6/uL (4.36-5.78); RDW 14.3 % (11.8-14.1); RDW-SD 48.6 fL; WBC 5.98 10^3/uL (4.4-10.8)
[2023-04-25 10:25] LABS: ALT 28 U/L (16-63); AST 24 U/L (15-37); Albumin 3.8 g/dL (3.4-5.0); Alkaline Phosphatase 46 U/L (46-116); Anion Gap 9.3 mmol/L (3-11); BUN 23 mg/dL (7-18); Bilirubin, Total 0.6 mg/dL (0.2-1.0); C-Reactive Protein 0.06 mg/dL (0.0-0.3); CO2 26.7 mmol/L (21.0-32.0); CREATININE 1.5 mg/dL (0.70-1.30); Calcium 9.2 mg/dL (8.5-10.1); Chloride 106 mmol/L (98-107); Estimated GFR 48.55 (mL/min/1.73m2); Glucose 158 mg/dL (74-106); Potassium 4.3 mmol/L (3.5-5.1); Sodium 142 mmol/L (136-145); Total Protein 6.4 g/dL (6.4-8.2)
--- NOTE | 2023-04-25 10:59 | W.ED.GENAD ---
Discharge Plan Disposition Patient Disposition: Home Condition: Stable Discharge Details Clinical Impression: Paronychia of finger Primary Care Provider: Yesy Nagy ED Provider: Mirtha Dean Home Meds and New Rx's Prescriptions: New cephalexin 500 mg capsule 500 mg PO Q6H 7 Days Qty: 28 0RF Saccharomyces boulardii [Florastor] 250 mg capsule 250 mg PO BID Qty: 14 0RF Continued tocilizumab 162 mg/0.9 mL pen injector 162 mg subcut QWEEK tamsulosin [Flomax] 0.4 mg capsule 0.8 mg PO DAILY Qty: 180 3RF Rx Instructions: Enlarged prostate; dose increase 03/29/2023 vitamin B complex [B Complex-Vitamin B12] Tablet 1 tab PO DAILY zinc 50 mg tablet 50 mg PO DAILY metformin 500 mg tablet extended release 24 hr 500 mg PO DAILY Qty: 90 2RF Rx Instructions: steroid induced diabetes aspirin 325 mg tablet 325 mg PO DAILY Hold Instructions: Changed by Provider hydrocortisone 2.5 % cream with perineal applicator 1 applic RI DAILY PRN (Reason: hemorrhoids) Qty: 30 0RF ciclopirox 8 % solution 1 applic topical QHS Qty: 6.6 3RF Rx Instructions: Apply to affected toenails nightly for up to 1year. Clean nails with alcohol q7d. Emergen-C 1,000 MG powder effervescent in packet 1,000 mg PO PRN PRN calcium carbonate 600 mg calcium (1,500 mg) tablet 600 mg PO BID cholecalciferol (vitamin D3) 25 mcg (1,000 unit) capsule 25 mcg PO DAILY (DME) lancets Misc See Rx Instructions .Route Qty: 100 3RF Rx Instructions: As directed E11.9 for daily monitoring for A1C <=7% One touch lancets (DME) blood-glucose meter Kit See Rx Instructions .Route Qty: 1 0RF Rx Instructions: ONE TOUCH METER As directed to check blood glucose daily. No insulin. DX:E11.9 to maintain Hba1c <7% (DME) blood sugar diagnostic Strip See Rx Instructions .Route Qty: 100 3RF Rx Instructions: One touch test strips As directed to check blood glucose daily. no insulin. DX:E11.9 to maintain Hba1c <7% amlodipine 5 mg tablet 5 mg PO DAILY Qty: 90 3RF ketoconazole 2 % shampoo 1 applic TP .2x/week Qty: 120 2RF Rx Instructions: Apply 2x/week for 8 weeks then PRN dandruff prednisone 20 mg tablet 8 mg PO DAILY Rx Instructions: 04/12/23 [place]ology - Continue taper [place]23[place] [place]: prednisone to 25mg x1 wk then 20mg x1 wk then 15mg x1 wk then 12.5mg x1 wk, then 10mg x1 wk and on. cc Discharge Instructions Instructions: Paronychia (ED) Additional Instructions: Soak in warm water for 5 to 10 minutes every several hours Put a bandage on after Take the antibiotic as prescribed Take Florastor daily to replenish your gut bacteria Recheck in 48 hours Return earlier should you have new or worsening complaints Referrals: Yesy Nagy [employer] [Primary Care Provider] - Discharge Data Discharge Date/Time-TO BE ENTERED AT DEPARTURE: 04/25/23 11:06 Medical Decision Making Patient presents paronychia on right third digit, afebrile and nontoxic 18-gauge needle used after cleansing paronychia site on right third digit 2 incised and drained paronychia Dressing was applied Keflex applied Labs reviewed, no significant acute abnormalities, baseline chronic kidney disease Return precautions reviewed and patient expressed understanding Wound culture sent for further evaluation HPI General Date/Time Provider Initiated Documentation: 04/25/23 09:11. HPI Narrative: This 72-year-old male with history of giant cell arteritis, on chronic prednisone and immunosuppressive presents with report of recurrent paronychias. States that he had his fourth digit drained and now his third digit on the right hand is bothering him. He completed the course of Bactrim that he was prescribed. He denies any fever or chills. He last had his injection for giant cell arteritis approximately 2 weeks ago. He does take 5 mg of prednisone daily. He otherwise feels well. He denies any traumatic injuries. Related Data Home Medications Medication Instructions Recorded Confirmed ascorbic acid 1,000 1,000 mg PO PRN PRN 05/13/18 04/25/23 rv-vnumjmnofadl-dmyckgfk powder effervescent pack (Emergen-C) vitamin B complex (B 1 tab PO DAILY 05/06/21 04/25/23 Complex-Vitamin B12 tablet) zinc 50 mg tablet 50 mg PO DAILY 05/06/21 04/25/23 calcium carbonate 600 mg calcium 600 mg PO BID 09/20/22 04/25/23 (1,500 mg) tablet cholecalciferol (vitamin D3) 25 25 mcg PO DAILY 09/20/22 04/25/23 mcg (1,000 unit) capsule blood sugar diagnostic #100 ea 11/01/22 04/25/23 blood-glucose meter #1 ea 11/01/22 04/25/23 lancets #100 ea 11/01/22 04/25/23 metformin 500 mg tablet,extended 500 mg PO DAILY #90 tabs 01/01/23 04/25/23 release 24 hr amlodipine 5 mg tablet 5 mg PO DAILY #90 tabs 01/22/23 04/25/23 tocilizumab 162 mg/0.9 mL 162 mg subcut QWEEK 02/01/23 04/25/23 subcutaneous pen injector aspirin 325 mg tablet 325 mg PO DAILY 02/13/23 04/25/23 hydrocortisone 2.5 % topical cream 1 applic RI DAILY PRN hemorrhoids 02/13/23 04/25/23 with perineal applicator #30 grams ketoconazole 2 % shampoo 1 applic topical .2x/week #120 mL 02/19/23 04/25/23 ciclopirox 8 % topical solution 1 applic topical QHS #6.6 mL 03/01/23 04/25/23 tamsulosin 0.4 mg capsule (Flomax) 0.8 mg PO DAILY #180 tab-caps 03/29/23 04/25/23 prednisone 20 mg tablet 8 mg PO DAILY 04/13/23 04/25/23 Saccharomyces boulardii 250 mg 250 mg PO BID #14 caps 04/25/23 capsule (Florastor) cephalexin 500 mg capsule 500 mg PO Q6H 7 days #28 caps 04/25/23 Previous Rx's Medication Instructions Recorded blood sugar diagnostic #100 ea 11/01/22 blood-glucose meter #1 ea 11/01/22 lancets #100 ea 11/01/22 metformin 500 mg tablet,extended 500 mg PO DAILY #90 tabs 01/01/23 release 24 hr amlodipine 5 mg tablet 5 mg PO DAILY #90 tabs 01/22/23 hydrocortisone 2.5 % topical cream 1 applic RI DAILY PRN hemorrhoids 02/13/23 with perineal applicator #30 grams ketoconazole 2 % shampoo 1 applic topical .2x/week #120 mL 02/19/23 ciclopirox 8 % topical solution 1 applic topical QHS #6.6 mL 03/01/23 tamsulosin 0.4 mg capsule (Flomax) 0.8 mg PO DAILY #180 tab-caps 03/29/23 Saccharomyces boulardii 250 mg 250 mg PO BID #14 caps 04/25/23 capsule (Florastor) cephalexin 500 mg capsule 500 mg PO Q6H 7 days #28 caps 04/25/23 Allergies Allergy/AdvReac Type Severity Reaction Status Date / Time amoxicillin [From Augmentin] AdvReac Intermediate vomiting, Verified 04/25/23 09:15 GI Upset atenolol AdvReac Intermediate off Verified 04/25/23 09:15 balance, dizzy clavulanic acid AdvReac Intermediate vomiting, Verified 04/25/23 09:15 [From Augmentin] GI Upset General Stated Complaint: Orthopedic ASIM: 4 PFSH All Active Problems (Updated 04/25/23 @ 11:00 by DARLINE Clancy) Paronychia of finger of right hand (Acute) Hyperglycemia (Acute) Paronychia of finger (Acute) Immunosuppressed status (Acute) Elevated serum creatinine (Acute) Steroid-induced diabetes (Acute ~09/2022) GCA (giant cell arteritis) (Acute ~11/2022) [facility] [place] Actremra [place]23 Anemia (Chronic ~08/2022) On prednisone therapy (Acute ~04/2022) Abnormal gait (Acute ~06/2022) Peripheral neuropathy + vestibular [place] [place] PMR (polymyalgia rheumatica) (Acute ~04/2022) Elevated lipoprotein A level (Acute ~12/2021) Hyperlipidemia (Chronic ~07/2021) Recommend statin 07/2021; Eladia Read obtained lipoprotein a, elevated--> cardiology recommends consider statin 01/2022 Family history of prostate cancer in father (Chronic) Also PGF Peripheral neuropathy (Chronic 05/07/18) EtOH related; [facility] [place] 2022 Impaired fasting glucose (Chronic 05/07/18) Monitor annual A1Cs; +fam hx DMT2 Hypertension (Chronic 05/07/18) Goal 135-145 (lower & he feels poor)--didn't tolerate Lisinopril Benign prostatic hyperplasia (Chronic 05/13/18) RX Flomax History of alcohol abuse (Chronic 05/07/18) Medical History Anxiety (05/07/18) Edema of lower extremity (05/07/18) Occurred x1, RX Furosemide and never reoccurred even off Furosemide Fracture of distal end of left radius (10/26/22) GERD (gastroesophageal reflux disease) (05/07/18) Hepatomegaly (05/07/18) Resolved off EtOH Immunization refused (~02/2022) Left scapholunate ligament tear Seborrheic dermatitis of scalp Tachycardia conveyor monitor stable--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 Surgical History Appendectomy Tonsillectomy Family History Father , 73yo from metastatic prostate cancer Essential hypertension Heart disease Myocardial infarction Neoplasm Prostate Mother , early 70s diabetes complications Diabetes Paternal Grandfather , prostate cancer Neoplasm Prostate Social History Smoking/Tobacco Use Status: Former Tobacco Use Quit Date: 11/26/71 Smoking risk assessment performed?: Yes Alcohol Intake: current Alcohol Intake frequency: 0-2 drinks per day Alcohol type: beer Drug use: Never Substance use type: does not use Household members: none Housing: apartment Number of Children: 3 Communication Needs: Corrective Lenses 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 Current gender identity: male What is your relationship status?: Panel score (0-1 are the most socially isolated patients): 0 What type of physical activity do you participate in: walking Duration: 15-30 minutes/day Frequency: 3-4 times per week Seatbelt use: always Drive intox or 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 courtesy bus driver: No Working smoke detector in home: Yes Fire extinguisher in home: Yes Carbon monox detector in home: Yes Do you feel safe at home: Yes Do you feel safe in your relationship?: Yes Exam Narrative Exam Narrative: Patient with paronychia noted to the radial side of his right third digit on hand Fluctuant, no lymphangitis, Course Vital Signs Vital signs: Vital Signs Temperature 36.7 C 04/25/23 09:08 Pulse 79 04/25/23 09:08 Respiratory Rate 16 04/25/23 09:08 Blood Pressure 139/66 04/25/23 09:08 Pulse Oximetry 98 04/25/23 09:08 Temperature 36.7 C 04/25/23 09:08 Temperature Source Temporal Artery Scan 04/25/23 09:08 Pulse 79 04/25/23 09:08 Respiratory Rate 16 04/25/23 09:08 Respiratory Effort Normal 04/25/23 09:11 Blood Pressure 139/66 04/25/23 09:08 Blood Pressure Position Sitting 04/25/23 09:08 Pulse Oximetry 98 04/25/23 09:08 Oxygen Delivery Method Room Air 04/25/23 09:08 Oxygen Flow Rate 0 04/25/23 09:08 Pain Level 8 04/25/23 09:11 Lab/Test Results Lab/Test Results: 04/25/23 10:49 Finger - Right Third Digit Wound Culture - Pending 04/25/23 10:49 Finger - Right Third Digit Gram Stain - Pending Laboratory Tests Range/Units 04/25/23 04/25/23 09:05 09:05 WBC (4.4-10.8) 10^3/uL 5.98 RBC (4.36-5.78) 10^6/uL 4.51 Hgb (13.5-17.5) g/dL 14.3 Hct (40.0-50.0) % 41.9 MCV (80-95) fL 93 MCH (27.0-33.0) pg 31.7 MCHC (32.0-36.0) % 34.1 RDW (11.8-14.1) % 14.3 H Plt Count (130-400) 10^3/uL 225 MPV (8.0-11.0) fL 9.4 Immature Gran % 0.3 Neutrophils % 42.0 Lymphocytes % 43.5 Monocytes % 12.4 Eosinophils % 1.3 Basophils % 0.5 Nucleated RBC % (0.0-0.3) % 0.0 Absolute Neutrophils (1.2-6.7) 10^3/uL 2.51 Absolute Lymphocytes (1.2-3.4) 10^3/uL 2.60 Absolute Monocytes (0.1-0.8) 10^3/uL 0.74 Absolute Eosinophils (0.0-0.7) 10^3/uL 0.08 Absolute Basophils (0.0-0.2) 10^3/uL 0.03 Sodium (136-145) mmol/L 142 Potassium (3.5-5.1) mmol/L 4.3 Chloride (98-107) mmol/L 106 Carbon Dioxide (21.0-32.0) mmol/L 26.7 Anion Gap (3-11) mmol/L 9.3 BUN (7-18) mg/dL 23 H Creatinine (0.70-1.30) mg/dL 1.5 H Est GFR (CKD-EPI 2020) (mL/min/1.73m2) 48.55 Glucose (74-106) mg/dL 158 H Calcium (8.5-10.1) mg/dL 9.2 Total Bilirubin (0.2-1.0) mg/dL 0.6 AST (15-37) U/L 24 ALT (16-63) U/L 28 Alkaline Phosphatase (46-116) U/L 46 C-Reactive Protein (0.0-0.3) mg/dL 0.06 Total Protein (6.4-8.2) g/dL 6.4 Albumin (3.4-5.0) g/dL 3.8 Procedures Abscess I/D Site: Hand Side (if applicable): Right Sedation/analgesia: None Technique: Needle Aspiration Amount of fluid expressed (mL): 1 Irrigation: No Packing used?: None PAWSS Have you Been Recently Intoxicated or Drunk Within the Last 30 days?: No Have you Ever Experienced Previous Episodes of Alcohol Withdrawal?: No Have you ever Experienced Withdrawal Seizures?: No Have you ever Experienced Delirium Tremens(DT)s?: No Have you ever undergone Alcohol Rehabilitation Treatment (i.e, inpt ot outpatient treatment programs)?: No Have you ever Experienced Blackouts?: No Have you ever Combined Alcohol with other Downers within the last 90 days?: No Have you ever Combined Alcohol with any other Substance of Abuse during the last 90 days?: No Result: 0
== END 2023-04-25 11:06 | disposition home or self-care (01) ==
PROVIDERS: Emergency Provider Physician Assistant; PCP Nurse Practitioner Adult Health
DX: L03.011 Cellulitis of right finger (principal)
CPT/HCPCS: 10060; 80053; 99283; 73130; 85025; 86140; 87070; 87205

== ENCOUNTER 2023-04-30 10:48 | Emergency (ER) | payer MEDICARE, MEDICAID, SELFPAY ==
[2023-04-30 11:01] VITALS: BP 127/68; PULSE 72; RESP 16; TEMP 36.2; O2SAT 98
--- NOTE | 2023-04-30 11:40 | ED.GENADUL_ITS ---
Discharge Plan Disposition Patient Disposition: Home Condition: Stable Discharge Details Clinical Impression: Paronychia of finger, Fungal infection Primary Care Provider: Yesy Nagy ED Provider: Nia Lombardi Home Meds and New Rx's Prescriptions: New clotrimazole 1 % cream 1 applic topical BID 14 Days Qty: 30 0RF fluconazole 100 mg tablet 100 mg PO DAILY Qty: 9 0RF Rx Instructions: 2 tabs on day one, then 1 tab x 7 days Continued tocilizumab 162 mg/0.9 mL pen injector 162 mg subcut QWEEK tamsulosin [Flomax] 0.4 mg capsule 0.8 mg PO DAILY Qty: 180 3RF Rx Instructions: Enlarged prostate; dose increase 03/29/2023 vitamin B complex [B Complex-Vitamin B12] Tablet 1 tab PO DAILY zinc 50 mg tablet 50 mg PO DAILY metformin 500 mg tablet extended release 24 hr 500 mg PO DAILY Qty: 90 2RF Rx Instructions: steroid induced diabetes aspirin 325 mg tablet 325 mg PO DAILY Hold Instructions: Changed by Provider hydrocortisone 2.5 % cream with perineal applicator 1 applic [place] DAILY PRN (Reason: hemorrhoids) Qty: 30 0RF ciclopirox 8 % solution 1 applic topical QHS Qty: 6.6 3RF Rx Instructions: Apply to affected toenails nightly for up to 1year. Clean nails with alcohol q7d. Emergen-C 1,000 MG powder effervescent in packet 1,000 mg PO PRN PRN calcium carbonate 600 mg calcium (1,500 mg) tablet 600 mg PO BID cholecalciferol (vitamin D3) 25 mcg (1,000 unit) capsule 25 mcg PO DAILY (DME) lancets Misc See Rx Instructions .Route Qty: 100 3RF Rx Instructions: As directed E11.9 for daily monitoring for A1C <=7% One touch lancets (DME) blood-glucose meter Kit See Rx Instructions .Route Qty: 1 0RF Rx Instructions: ONE TOUCH METER As directed to check blood glucose daily. No insulin. DX:E11.9 to maintain Hba1c <7% (DME) blood sugar diagnostic Strip See Rx Instructions .Route Qty: 100 3RF Rx Instructions: One touch test strips As directed to check blood glucose daily. no insulin. DX:E11.9 to maintain Hba1c <7% amlodipine 5 mg tablet 5 mg PO DAILY Qty: 90 3RF ketoconazole 2 % shampoo 1 applic TP .2x/week Qty: 120 2RF Rx Instructions: Apply 2x/week for 8 weeks then PRN dandruff prednisone 20 mg tablet 5 mg PO DAILY Rx Instructions: 04/12/23 Rheumatology - Continue taper 02/23/23-[facility] rhuematology progress note: prednisone to 25mg x1 wk then 20mg x1 wk then 15mg x1 wk then 12.5mg x1 wk, then 10mg x1 wk and on. cc Discharge Instructions Instructions: Paronychia (ED) Additional Instructions: Please continue with the soaks that you have been doing and continuing to keep this area clean. Please begin the antifungal oral agent as well as the topical agent prescribed. These have been sent to your pharmacy. The oral agent you will need to take 2 pills today and then subsequently will take 1 pill for the next 7 days. Please call your primary care office and schedule follow-up appoin tment within the next week for reevaluation. If you develop fever/chills, increased pain, spreading redness or other new/worsening symptom please seek care urgently once again. Referrals: Yesy Nagy NP [Primary Care Provider] - Discharge Data Discharge Date/Time-TO BE ENTERED AT DEPARTURE: 04/30/23 17:22 Medical Decision Making Patient is a pleasant 72 year old RHD male presenting for reevaluation of right hand paronychia. He was here one week ago at which time it was drained. He has been soaking the finger 4x daily and taking the keflex as prescribed. Despite this, his symptoms have not improved. He deneis systemic symptoms. He is immunocompromised, on prednisone. Endorses some discomfort proximal to the area of parynychia but no joint pain. On exam, patient appears non-toxic. Resting comfortably. He has intact neurovascular exam. Paronychia is still draining. No area of fluctuance. The erythema is localized to the area along the ulnar side of the nail and the nail fold. It does not involve the palmar side or joint space. Exam is not consistent with sepsis, bacteremia, joint infection, or other deep space involvement at this time. Reviewed micro, positive for dillon. Discussed with patient. He is immunocompromised. He is very hesitant to use oral antifungal. Wisehs that I speak with his PCP, will call Yesy Palma, his PCP to discuss. Will start on fluconazole and clotrimazole. Spoke with his PCP, she advised starting this would be fine. Will start on fluconazole and clotrimazole. She will see him in f/u. Discussed with patient, he is agreeable with this plan. Encouraged that he continue with the soaks. Strict return preacutions discussed. All of his ques tions and concerns were addressed, he is in agreement with this plan. HPI General Date/Time Provider Initiated Documentation: 04/30/23 11:40 . Limitations to Documentation: no limitations . Information obtained by: patient, RN notes reviewed and old records reviewed . History of Present Illness 72 year old M presents to the emergency department with the chief complaint of peresistent paronychia, finger infection, desc ribed as mild, Quality is described as aching, and is localized to the right and upper extremity. Patient proximal (isolated erythematous area distal middle finger but paain to PIP joint). Patient started experiencing this week(s) and it has been constant. No relieving factors improve symptom(s), No exacerbating factors reported . Patient notes no other symptoms.; denies fever/chills and malaise. Patient did receive the following treatments prior to arrival, other (keflex x1wk, no change in symptoms) Related Data Home Medications Medication Instructions Recorded Confirmed ascorbic acid 1,000 1,000 mg PO PRN PRN 05/13/18 05/02/23 [id number] powder effervescent pack (Emergen-C) vitamin B complex (B 1 tab PO DAILY 05/06/21 05/02/23 Complex-Vitamin B12 tablet) zinc 50 mg tablet 50 mg PO DAILY 05/06/21 05/02/23 calcium carbonate 600 mg calcium 600 mg PO BID 09/20/22 05/02/23 (1,500 mg) tablet cholecalciferol (vitamin D3) 25 25 mcg PO DAILY 09/20/22 05/02/23 mcg (1,000 unit) capsule blood sugar diagnostic #100 ea 11/01/22 05/02/23 blood-glucose meter #1 ea 11/01/22 05/02/23 lancets #100 ea 11/01/22 05/02/23 metformin 500 mg tablet,extended 500 mg PO DAILY #90 tabs 01/01/23 05/02/23 release 24 hr amlodipine 5 mg tablet 5 mg PO DAILY #90 tabs 01/22/23 05/02/23 tocilizumab 162 mg/0.9 mL 162 mg subcut QWEEK 02/01/23 05/02/23 subcutaneous pen injector aspirin 325 mg tablet 325 mg PO DAILY 02/13/23 05/02/23 hydrocortisone 2.5 % topical cream 1 applic [place] DAILY PRN hemorrhoids 02/13/23 05/02/23 with perineal applicator #30 grams ketoconazole 2 % shampoo 1 applic topical .2x/week #120 mL 02/19/23 05/02/23 ciclopirox 8 % topical solution 1 applic topical QHS #6.6 mL 03/01/23 05/02/23 tamsulosin 0.4 mg capsule (Flomax) 0.8 mg PO DAILY #180 tab-caps 03/29/23 05/02/23 prednisone 20 mg tablet 5 mg PO DAILY 04/13/23 05/02/23 clotrimazole 1 % topical cream 1 applic topical BID 2 weeks #30 04/30/23 05/02/23 grams fluconazole 100 mg tablet 100 mg PO DAILY #9 tabs 04/30/23 05/02/23 Previous Rx's Medication Instructions Recorded blood sugar diagnostic #100 ea 11/01/22 blood-glucose meter #1 ea 11/01/22 lancets #100 ea 11/01/22 metformin 500 mg tablet,extended 500 mg PO DAILY #90 tabs 01/01/23 release 24 hr amlodipine 5 mg tablet 5 mg PO DAILY #90 tabs 01/22/23 hydrocortisone 2.5 % topical cream 1 applic [place] DAILY PRN hemorrhoids 02/13/23 with perineal applicator #30 grams ketoconazole 2 % shampoo 1 applic topical .2x/week #120 mL 02/19/23 ciclopirox 8 % topical solution 1 applic topical QHS #6.6 mL 03/01/23 tamsulosin 0.4 mg capsule (Flomax) 0.8 mg PO DAILY #180 tab-caps 03/29/23 clotrimazole 1 % topical cream 1 applic topical BID 2 weeks #30 04/30/23 grams fluconazole 100 mg tablet 100 mg PO DAILY #9 tabs 04/30/23 Allergies Allergy/AdvReac Type Severity Reaction Status Date / Time amoxicillin [From Augmentin] AdvReac Intermediate vomiting, Verified 05/02/23 13:08 GI Upset atenolol AdvReac Intermediate off Verified 05/02/23 13:08 balance, dizzy clavulanic acid AdvReac Intermediate vomiting, Verified 05/02/23 13:08 [From Augmentin] GI Upset General Stated Complaint: Recheck ASIM: 4 Review of Systems Constitutional Constitutional: Reports as per HPI, Denies chills and Denies fever(s) Cardiovascular Cardiovascular: Reports as per HPI Respiratory Respiratory: Reports as per HPI and Denies cough Musculoskeletal Musculoskeletal: Reports as per HPI and Denies tingling Integumentary/Breasts Skin/Breast: Reports as per HPI Neurologic Neurologic: Reports as per HPI, Denies tingling and Denies paresthesias PFSH All Active Problems (Updated 05/02/23 @ 13:27 by Yesy Nagy, JAYNA) Paronychia of finger of right hand (Acute) Fungal infection (Acute) Immunosuppressed status (Acute) Elevated serum creatinine (Acute) Steroid-induced diabetes (Acute ~09/2022) GCA (giant cell arteritis) (Acute ~11/2022) [facility] Endo--RX Actremra 01/2023 Anemia (Chronic ~08/2022) On prednisone therapy (Acute ~04/2022) Abnormal gait (Acute ~06/2022) Peripheral neuropathy + vestibular ([facility] Neuro 01/2023) PMR (polymyalgia rheumatica) (Acute ~04/2022) Elevated lipoprotein A level (Acute ~12/2021) Hyperlipidemia (Chronic ~07/2021) Recommend statin 07/2021; [employer] Reynaldo Read obtained lipoprotein a, elevated--> cardiology r ecommends consider statin 01/2022 Family history of prostate cancer in father (Chronic) Also PGF Peripheral neuropathy (Chronic 05/07/18) EtOH related; [facility] Neuro 2017 & 2022 Impaired fasting glucose (Chronic 05/07/18) Monitor annual A1Cs; +fam hx DMT2 Hypertension (Chronic 05/07/18) Goal 135-145 (lower & he feels poor)--didn't tolerate Lisinopril Benign prostatic hyperplasia (Chronic 05/13/18) RX Flomax History of alcohol abuse (Chronic 05/07/18) Medical History Anxiety (05/07/18) Edema of lower extremity (05/07/18) Occurred x1, RX Furosemide and never reoccurred even off Furosemide Fracture of distal end of left radius (10/26/22) GERD (gastroesophageal reflux disease) (05/07/18) Hepatomegaly (05/07/18) Resolved off EtOH Immunization refused (~02/2022) Left scapholunate ligament tear Seborrheic dermatitis of scalp 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--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 Surgical History Appendectomy Tonsillectomy Family History Father , 73yo from metastatic prostate cancer Essential hypertension Heart disease Myocardial infarction Neoplasm Prostate Mother , early 70s diabetes complications Diabetes Paternal Grandfather , prostate cancer Neoplasm Prostate Social History Smoking/Tobacco Use Status: Former Tobacco Use Quit Date: 11/26/71 Smoking risk assessment performed?: Yes Alcohol Intake: current Alcohol Intake frequency: 0-2 drinks per day Alcohol type: beer Drug use: Never Substance use type: does not use Household members: none Housing: apartment Number of Children: 3 Communication Needs: Corrective Lenses 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 Current gender identity: male What is your relationship status?: Panel score (0-1 are the most socially isolated patients): 0 What type of physical activity do you participate in: walking Duration: 15-30 minutes/day Frequency: 3-4 times per week Seatbelt use: always Drive intox or 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 sweeper driver: No Working smoke detector in home: Yes Fire extinguisher in home: Yes Carbon monox detector in home: Yes Do you feel safe at home: Yes Do you feel safe in your relationship?: Yes Exam Const General: cooperative, healthy appearing, comfortable, no acute distress, well developed and well groomed Nutritional Appearance: average body habitus and well nourished Orientation: alert and awake Resp Effort & Inspection: normal respiratory effort, able to speak in complete sentences and no respiratory distress Cardio Rate: regular rate Rhythm: regular rhythm Skin General skin exam: erythema and no fluctuance (area draining purulent fluid) Neuro General: patient alert and patient awake Cognition: normal cognition Speech: speech normal Motor: muscle tone normal throughout Sensory Exam: no sensory deficits noted Extrem Hand/finger images: 1. Ulnar aspect of the middle finger, right hand. 2+ distal pulses, intact capillary refilly. Sensation intact. Area of ertyenam extends just proximal to the nail. It does not extend to the palmar side. No fluctuance. Along the nail crease, there is a small amount of purulent discharge, no area of persistent fluctuance. Good ROM, no pain with passive ROM of the joints. Psych Appearance: grossly normal and well kempt Mental Status: mental status grossly normal Speech and Movement: speech and movement normal Course Vital Signs Vital signs: Vital Signs Temperature 36.2 C L 04/30/23 11:01 Pulse 72 04/30/23 11:01 Respiratory Rate 16 04/30/23 11:01 Blood Pressure 127/68 04/30/23 11:01 Pulse Oximetry 98 04/30/23 11:01 Temperature 36.2 C L 04/30/23 11:01 Temperature Source Oral 04/30/23 11:01 Pulse 72 04/30/23 11:01 Respiratory Rate 16 04/30/23 11:01 Blood Pressure 127/68 04/30/23 11:01 Blood Pressure Position Supine 04/30/23 11:01 Pulse Oximetry 98 04/30/23 11:01 Oxygen Delivery Method Room Air 04/30/23 11:01 Oxygen Flow Rate 0 04/30/23 11:01 Pain Level 7 04/30/23 11:01
[2023-04-30 14:38] VITALS: BP 155/76; PULSE 76; RESP 16; TEMP 36.4; O2SAT 97
[2023-04-30 15:40] VITALS: BP 155/76; PULSE 76; RESP 16; TEMP 36.4; O2SAT 97
== END 2023-04-30 17:22 | disposition home or self-care (01) ==
PROVIDERS: Emergency Provider Physician Assistant; PCP Nurse Practitioner Adult Health
DX: B37.2 Candidiasis of skin and nail (principal)
CPT/HCPCS: 99283; 99284

== ENCOUNTER 2023-05-14 12:45 | Outpatient (CLI) | payer MEDICARE, MEDICAID, SELFPAY ==
[2023-05-14 12:27] LABS: ESR 3 mm/hr (0-20)
[2023-05-14 12:56] LABS: ALT 24 U/L (16-63); AST 16 U/L (15-37); Alkaline Phosphatase 47 U/L (46-116); Anion Gap 10.2 mmol/L (3-11); BUN 23 mg/dL (7-18); Bilirubin, Total 0.5 mg/dL (0.2-1.0); CO2 27.8 mmol/L (21.0-32.0); CREATININE 1.3 mg/dL (0.70-1.30); Calcium 9.2 mg/dL (8.5-10.1); Chloride 102 mmol/L (98-107); Estimated GFR 57.65 (mL/min/1.73m2); Glucose 147 mg/dL (74-106); Potassium 4.2 mmol/L (3.5-5.1); Sodium 140 mmol/L (136-145); Total Protein 7.2 g/dL (6.4-8.2)
[2023-05-14 12:57] LABS: C-Reactive Protein < 0.05 mg/dL (0.0-0.3)
[2023-06-12 07:48] LABS: Result No fungi isolated
[2023-06-12 07:51] LABS: Result No fungi isolated
== END 2023-05-14 12:46 | disposition home or self-care (01) ==
LOC: LBO 12:46
PROVIDERS: PCP Nurse Practitioner Adult Health; Visit Provider Nurse Practitioner Adult Health
DX: M31.6 Other giant cell arteritis (principal); B37.2 Candidiasis of skin and nail
CPT/HCPCS: 36415; 80053; 85652; 87040; 86140; 87103

== ENCOUNTER 2023-06-14 08:46 | Emergency (ER) | payer MEDICARE, MEDICAID, SELFPAY ==
[2023-06-14 08:55] VITALS: BP 137/69; PULSE 81; RESP 16; TEMP 37.1; O2SAT 99
--- NOTE | 2023-06-14 09:36 | ED.GENADUL_ITS ---
Discharge Plan Disposition Patient Disposition: Home Condition: Stable Discharge Details Clinical Impression: Abrasion, corneal Primary Care Provider: Yesy Nagy ED Provider: Hebert Leo Home Meds and New Rx's Prescriptions: New ofloxacin 0.3 % drops 1 drp ophthalmic (eye) QID 7 Days Qty: 5 0RF Rx Instructions: bilateral eyes No Action tocilizumab 162 mg/0.9 mL pen injector 162 mg subcut QWEEK Hold Instructions: Patient Refused tamsulosin [Flomax] 0.4 mg capsule 0.8 mg PO DAILY Qty: 180 3RF Rx Instructions: Enlarged prostate; dose increase 03/29/2023 prednisone 20 mg tablet 4 mg PO DAILY Rx Instructions: 04/12/23 Rheumatology - Continue taper 02/23/23[place] [place]: prednisone to 25mg x1 wk then 20mg x1 wk then 15mg x1 wk then 12.5mg x1 wk, then 10mg x1 wk and on. cc vitamin B complex [B Complex-Vitamin B12] Tablet 1 tab PO DAILY zinc 50 mg tablet 50 mg PO DAILY metformin 500 mg tablet extended release 24 hr 500 mg PO DAILY Qty: 90 2RF Rx Instructions: steroid induced diabetes aspirin 325 mg tablet 325 mg PO DAILY Hold Instructions: Changed by Provider hydrocortisone 2.5 % cream with perineal applicator 1 applic [place] DAILY PRN (Reason: hemorrhoids) Qty: 30 0RF ciclopirox 8 % solution 1 applic topical QHS Qty: 6.6 3RF Rx Instructions: Apply to affected toenails nightly for up to 1year. Clean nails with alcohol q7d. Emergen-C 1,000 MG powder effervescent in packet 1,000 mg PO PRN PRN calcium carbonate 600 mg calcium (1,500 mg) tablet 600 mg PO BID cholecalciferol (vitamin D3) 25 mcg (1,000 unit) capsule 25 mcg PO DAILY (DME) lancets Misc See Rx Instructions .Route Qty: 100 3RF Rx Instructions: As directed E11.9 for daily monitoring for A1C <=7% One touch lancets (DME) blood-glucose meter Kit See Rx Instructions .Route Qty: 1 0RF Rx Instructions: ONE TOUCH METER As directed to check blood glucose daily. No insulin. DX:E11.9 to maintain Hba1c <7% (DME) blood sugar diagnostic Strip See Rx Instructions .Route Qty: 100 3RF Rx Instructions: One touch test strips As directed to check blood glucose daily. no insulin. DX:E11.9 to maintain Hba1c <7% amlodipine 5 mg tablet 5 mg PO DAILY Qty: 90 3RF ketoconazole 2 % shampoo 1 applic TP .2x/week Qty: 120 2RF Rx Instructions: Apply 2x/week for 8 weeks then PRN dandruff fluocinonide 0.05 % cream 1 applic topical BID Rx Instructions: Apply to affected areas on right fourth finger nail folds twice daily for 14 days and then switch to weekends only (Sat-Sun) for maintenance. fluconazole 150 mg tablet 150 mg PO DAILY Rx Instructions: Every other day for additional 3 weeks. Discharge Instructions Instructions: Corneal Abrasion (ED) Additional Instructions: Please take medication as prescribed. Please return to the emergency part for any worsening symptoms. We have sent a referral to eye clinic for further evaluation Medical Decision Making 72-year-old male history of giant cell arteritis on chronic prednisone presents with several weeks of bilateral eye discharge and discomfort in the morning. Patient afebrile nontoxic, describes no change in vision; no active discharge no evidence of conjunctival injection. Will perform fluorescein stain for further examination. Consider allergic conjunctivitis versus viral conjunctivitis versus must consider intermittent bacterial conjunctivitis lower suspicion for fungal conjunctivitis or herpetic conjunctivitis. Will likely start patient on empiric medicated eyedrops, will encourage close follow-up and return precautions 10: 30 evidence of small linear corneal abrasions left eye; will provide follow- up at [facility] eye Will start on ofloxacin drops HPI General Date/Time Provider Initiated Documentation: 06/14/23 09:18 . HPI Narrative: 72-year-old male history of giant cell arteritis on longstanding prednisone, presents with several weeks of bilateral eye discharge mainly in the morning associated with foreign body sensation. No subjective change in vision. No recent eye trauma; patient unable to characterize nature of discharge Related Data Home Medications Medication Instructions Recorded Confirmed ascorbic acid 1,000 1,000 mg PO PRN PRN 05/13/18 06/14/23 [id number] powder effervescent pack (Emergen-C) vitamin B complex (B 1 tab PO DAILY 05/06/21 06/14/23 Complex-Vitamin B12 tablet) zinc 50 mg tablet 50 mg PO DAILY 05/06/21 06/14/23 calcium carbonate 600 mg calcium 600 mg PO BID 09/20/22 06/14/23 (1,500 mg) tablet cholecalciferol (vitamin D3) 25 25 mcg PO DAILY 09/20/22 06/14/23 mcg (1,000 unit) capsule blood sugar diagnostic #100 ea 11/01/22 06/14/23 blood-glucose meter #1 ea 11/01/22 06/14/23 lancets #100 ea 11/01/22 06/14/23 metformin 500 mg tablet,extended 500 mg PO DAILY #90 tabs 01/01/23 06/14/23 release 24 hr amlodipine 5 mg tablet 5 mg PO DAILY #90 tabs 01/22/23 06/14/23 tocilizumab 162 mg/0.9 mL 162 mg subcut QWEEK 02/01/23 06/14/23 subcutaneous pen injector aspirin 325 mg tablet 325 mg PO DAILY 02/13/23 06/14/23 hydrocortisone 2.5 % topical cream 1 applic [place] DAILY PRN hemorrhoids 02/13/23 06/14/23 with perineal applicator #30 grams ketoconazole 2 % shampoo 1 applic topical .2x/week #120 mL 02/19/23 06/14/23 ciclopirox 8 % topical solution 1 applic topical QHS #6.6 mL 03/01/23 06/14/23 tamsulosin 0.4 mg capsule (Flomax) 0.8 mg PO DAILY #180 tab-caps 03/29/23 06/14/23 prednisone 20 mg tablet 4 mg PO DAILY 05/14/23 06/14/23 fluconazole 150 mg tablet 150 mg PO DAILY 06/07/23 06/14/23 fluocinonide 0.05 % topical cream 1 applic topical BID 06/07/23 06/14/23 ofloxacin 0.3 % eye drops 1 drp ophthalmic (eye) QID 7 days 06/14/23 #5 mL Previous Rx's Medication Instructions Recorded blood sugar diagnostic #100 ea 11/01/22 blood-glucose meter #1 ea 11/01/22 lancets #100 ea 11/01/22 metformin 500 mg tablet,extended 500 mg PO DAILY #90 tabs 01/01/23 release 24 hr amlodipine 5 mg tablet 5 mg PO DAILY #90 tabs 01/22/23 hydrocortisone 2.5 % topical cream 1 applic WV DAILY PRN hemorrhoids 02/13/23 with perineal applicator #30 grams ketoconazole 2 % shampoo 1 applic topical .2x/week #120 mL 02/19/23 ciclopirox 8 % topical solution 1 applic topical QHS #6.6 mL 03/01/23 tamsulosin 0.4 mg capsule (Flomax) 0.8 mg PO DAILY #180 tab-caps 03/29/23 ofloxacin 0.3 % eye drops 1 drp ophthalmic (eye) QID 7 days 06/14/23 #5 mL Allergies Allergy/AdvReac Type Severity Reaction Status Date / Time amoxicillin [From Augmentin] AdvReac Intermediate vomiting, Verified 06/14/23 09:00 GI Upset atenolol AdvReac Intermediate off Verified 06/14/23 09:00 balance, dizzy clavulanic acid AdvReac Intermediate vomiting, Verified 06/14/23 09:00 [From Augmentin] GI Upset General Stated Complaint: EyeProblem ASIM: 4 Review of Systems Narrative: Review of Systems Constitutional: negative Eyes: negative ENT: Eye discharge Cardiovascular: negative Respiratory: negative Gastrointestinal: negative : negative Musculoskeletal: negative Skin: negative Neurologic: negative Psych: negative PFSH All Active Problems (Updated 06/14/23 @ 10:32 by Hebert Leo MD) Abrasion, corneal (Acute) Candidal paronychia (Acute) Immunosuppressed status (Acute) Steroid-induced diabetes (Acute ~09/2022) GCA (giant cell arteritis) (Acute ~11/2022) [facility] [place] Actremra [place]23 Anemia (Chronic ~08/2022) On prednisone therapy (Acute ~04/2022) Abnormal gait (Acute ~06/2022) Peripheral neuropathy + vestibular ([facility] [place] PMR (polymyalgia rheumatica) (Acute ~04/2022) Elevated lipoprotein A level (Acute ~12/2021) Hyperlipidemia (Chronic ~07/2021) Recommend statin 07/2021; Eladia Read obtained lipoprotein a, elevated--> cardiology recommends consider statin 01/2022 Family history of prostate cancer in father (Chronic) Also PGF Peripheral neuropathy (Chronic 05/07/18) EtOH related; [facility] [facility] [place] & 2022 Impaired fasting glucose (Chronic 05/07/18) Monitor annual A1Cs; +fam hx DMT2 Hypertension (Chronic 05/07/18) Goal 135-145 (lower & he feels poor)--didn't tolerate Lisinopril Benign prostatic hyperplasia (Chronic 05/13/18) RX Flomax History of alcohol abuse (Chronic 05/07/18) Medical History (Updated 06/14/23 @ 10:32 by Hebert Leo MD) Anxiety (05/07/18) Edema of lower extremity (05/07/18) Occurred x1, RX Furosemide and never reoccurred even off Furosemide Elevated serum creatinine Fracture of distal end of left radius (10/26/22) GERD (gastroesophageal reflux disease) (05/07/18) Hepatomegaly (05/07/18) Resolved off EtOH Immunization refused (~02/2022) Left scapholunate ligament tear Seborrheic dermatitis of scalp 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 Surgical History Appendectomy Tonsillectomy Family History Father , 73yo from metastatic prostate cancer Essential hypertension Heart disease Myocardial infarction Neoplasm Prostate Mother , early 70s diabetes complications Diabetes Paternal Grandfather , prostate cancer Neoplasm Prostate Social History Smoking/Tobacco Use Status: Former Tobacco Use Quit Date: 11/26/71 Smoking risk assessment performed?: Yes Alcohol Intake: current Alcohol Intake frequency: 0-2 drinks per day Alcohol type: beer Drug use: Never Substance use type: does not use Household members: none Housing: apartment Number of Children: 3 Communication Needs: Corrective Lenses 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 Current gender identity: male What is your relationship status?: Panel score (0-1 are the most socially isolated patients): 0 What type of physical activity do you participate in: walking Duration: 15-30 minutes/day Frequency: 3-4 times per week Seatbelt use: always Drive intox or 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: No Working smoke detector in home: Yes Fire extinguisher in home: Yes Carbon monox detector in home: Yes Do you feel safe at home: Yes Do you feel safe in your relationship?: Yes Exam Narrative Exam Narrative: Physical Examination General: alert, awake, cooperative, resting comfortably, no acute distress HEENT: normocephalic, atraumatic; PERRL, EOM intact, conjunctiva normal; no nasal discharge; moist mucous membranes, oral and pharyngeal mucosa normal, tolerating secretions t Course Vital Signs Vital signs: Vital Signs Temperature 37.1 C 06/14/23 08:55 Pulse 81 06/14/23 08:55 Respiratory Rate 16 06/14/23 08:55 Blood Pressure 137/69 06/14/23 08:55 Pulse Oximetry 99 06/14/23 08:55 Temperature 37.1 C 06/14/23 08:55 Temperature Source Temporal Artery Scan 06/14/23 08:55 Pulse 81 06/14/23 08:55 Respiratory Rate 16 06/14/23 08:55 Respiratory Effort Normal 06/14/23 08:59 Blood Pressure 137/69 06/14/23 08:55 Blood Pressure Position Sitting 06/14/23 08:55 Pulse Oximetry 99 06/14/23 08:55 Oxygen Delivery Method Room Air 06/14/23 08:55 Oxygen Flow Rate 0 06/14/23 08:55 Pain Level 2 06/14/23 08:55 PAWSS Have you Been Recently Intoxicated or Drunk Within the Last 30 days?: No Have you Ever Experienced Previous Episodes of Alcohol Withdrawal?: No Have you ever Experienced Withdrawal Seizures?: No Have you ever Experienced Delirium Tremens(DT)s?: No Have you ever undergone Alcohol Rehabilitation Treatment (i.e, inpt ot ou tpatient treatment programs)?: No Have you ever Experienced Blackouts?: No Have you ever Combined Alcohol with other Downers within the last 90 days?: No Have you ever Combined Alcohol with any other Substance of Abuse during the last 90 days?: No Result: 0
[2023-06-14] MEDS: Tetracaine 0.5% 4 ML BTL OP (10:15)
[2023-06-14] MEDS: Fluorescein STRIPS 100/BOX 1 MG OP (10:15)
--- NOTE | 2023-06-14 12:19 | NUR.NOTE ---
Nursing Note: Referral faxed to [facility] for follow up of eye irritation, corneal abrasion/ next week.
== END 2023-06-14 10:43 | disposition home or self-care (01) ==
PROVIDERS: Emergency Provider Emergency Medicine; PCP Nurse Practitioner Adult Health
DX: H57.9 Unspecified disorder of eye and adnexa (principal); S05.02XA Injury of conjunctiva and corneal abrasion without foreign body, left eye, initial encounter; M31.5 Giant cell arteritis with polymyalgia rheumatica; Z79.52 Long term (current) use of systemic steroids; Z79.82 Long term (current) use of aspirin; Z79.84 Long term (current) use of oral hypoglycemic drugs; Z87.891 Personal history of nicotine dependence; X58.XXXA Exposure to other specified factors, initial encounter
CPT/HCPCS: 99283

== ENCOUNTER 2023-06-29 13:14 | Outpatient (CLI) | payer MEDICARE, MEDICAID, SELFPAY ==
[2023-06-29 12:07] LABS: Abs Immature Grans 0.03 10^3/uL (0.0-0.06); Absolute Basophil Count 0.03 10^3/uL (0.0-0.2); Absolute Eosinophil Count 0.06 10^3/uL (0.0-0.7); Absolute Lymphocyte Count 1.78 10^3/uL (1.2-3.4); Absolute Monocyte Count 0.74 10^3/uL (0.1-0.8); Absolute Neutrophil Count 5.46 10^3/uL (1.2-6.7); Basophils % 0.4; Eosinophils % 0.7; HCT 41.2 % (40.0-50.0); HGB 14.5 g/dL (13.5-17.5); Immature Grans % 0.4; MCH 33.3 pg (27.0-33.0); MCHC 35.2 % (32.0-36.0); MCV 95 fL (80-95); MPV 9.7 fL (8.0-11.0); Monocytes % 9.1; Neutrophils % 67.4; Platelet Count 201 10^3/uL (130-400); RBC 4.36 10^6/uL (4.36-5.78); RDW 12.8 % (11.8-14.1); RDW-SD 44.3 fL
[2023-06-29 12:13] LABS: ESR 2 mm/hr (0-20)
[2023-06-29 12:35] LABS: ALT 21 U/L (16-63); AST 15 U/L (15-37); Albumin 4.1 g/dL (3.4-5.0); Alkaline Phosphatase 55 U/L (46-116); Anion Gap 6.6 mmol/L (3-11); BUN 14 mg/dL (7-18); Bilirubin, Total 0.7 mg/dL (0.2-1.0); CO2 28.4 mmol/L (21.0-32.0); CREATININE 1.2 mg/dL (0.70-1.30); Calcium 9.3 mg/dL (8.5-10.1); Chloride 102 mmol/L (98-107); Estimated GFR 63.46 (mL/min/1.73m2); Glucose 147 mg/dL (74-106); Potassium 4.4 mmol/L (3.5-5.1); Sodium 137 mmol/L (136-145); Total Protein 7.1 g/dL (6.4-8.2)
[2023-06-29 12:38] LABS: C-Reactive Protein < 0.05 mg/dL (0.0-0.3)
== END 2023-06-29 13:15 | disposition home or self-care (01) ==
LOC: LBO 13:15
PROVIDERS: PCP Nurse Practitioner Adult Health; Visit Provider Internal Medicine
DX: M31.6 Other giant cell arteritis (principal); D84.9 Immunodeficiency, unspecified; Z51.81 Encounter for therapeutic drug level monitoring
CPT/HCPCS: 36415; 80053; 85652; 85025; 86140

== ENCOUNTER 2023-07-11 13:33 | Outpatient (CLI) | payer MEDICARE, MEDICAID, SELFPAY ==
[2023-07-11 13:42] LABS: ESR 42 mm/hr (0-20)
[2023-07-11 14:10] LABS: C-Reactive Protein 4.47 mg/dL (0.0-0.3)
== END 2023-07-11 13:34 | disposition home or self-care (01) ==
LOC: LBO 13:34
PROVIDERS: PCP Nurse Practitioner Adult Health; Visit Provider Nurse Practitioner Adult Health
DX: M31.6 Other giant cell arteritis (principal); R26.9 Unspecified abnormalities of gait and mobility; Z95.2 Presence of prosthetic heart valve
CPT/HCPCS: 36415; 85652; 86140

== ENCOUNTER 2023-07-20 01:11 | Outpatient (CLI) | payer MEDICARE, MEDICAID, SELFPAY ==
[2023-07-20 14:20] LABS: ESR 12 mm/hr (0-20)
[2023-07-20 14:53] LABS: C-Reactive Protein 0.29 mg/dL (0.0-0.3)
== END 2023-07-20 01:12 | disposition home or self-care (01) ==
LOC: LBO 01:12
PROVIDERS: PCP Nurse Practitioner Adult Health; Visit Provider Nurse Practitioner Adult Health
DX: M31.6 Other giant cell arteritis (principal)
CPT/HCPCS: 36415; 85652; 86140

== ENCOUNTER 2023-09-10 11:16 | Inpatient (IN) | payer MEDICARE, MEDICAID, SELFPAY ==
[2023-09-10] VITALS (20 sets, daily range): BP systolic 104–162; BP diastolic 44–78; PULSE 71–113; RESP 15–20; TEMP 37.2–37.7; O2SAT 91–97
--- NOTE | 2023-09-10 11:30 | DI.RAD_ITS ---
Exam(s) XR PORTABLE CHEST AP EXAM: XR PORTABLE CHEST AP CLINICAL HISTORY: Weakness, Fever TECHNIQUE: 2D digital imaging was performed of the chest. One image was obtained. An AP view was ob tained. COMPARISON: CR CHEST 2 VIEWS PA,LAT from 02/26/2017 FINDINGS: MEDIASTINUM: Normal. HEART: Normal. PULMONARY VASCULATURE: Normal. LUNGS: Clear. PLEURAL SPACE: No pleural effusion or pneumothorax. BONE:Within normal limits for the patient's age. OTHER FINDINGS:Normal. IMPRESSION: No acute pulmonary findings. DATA REPOSITORY: RADIATION DOSE DELIVERED:
--- NOTE | 2023-09-10 11:34 | W.ED.GENAD ---
Discharge Plan Disposition Patient Disposition: Admit to [facility] Condition: Stable Discharge Details Clinical Impression: COVID-19, Weakness Admit Date/Time: 09/10/23 13:25 Admit Provider: Hebert Lema Attending Provider: Hebert Lema Primary Care Provider: Yesy Nagy ED Provider: Lolly Barrios Discharge Data Discharge Date/Time-TO BE ENTERED AT DEPARTURE: 09/10/23 16:08 Medical Decision Making 72-year-old male presents to the ER via EMS with a chief complaint of weakness and fever. Patient reports that he was unable to get out of bed this morning due to weakness. He does have a low-grade fever here upon arrival. He denies any throat or ear pain. He does report slight URI. He does not have any gross motor neurodeficits noted. He does have a history of giant cell arteritis and is on daily prednisone. He did not take his 10 mg of prednisone this morning. Sepsis work-up ordered including CBC CMP lactate blood cultures x2, chest x-ray fluid swab and urinalysis. Will order prednisone 10 mg p.o. and Tylenol and normal saline at 100 an hour. Patient is COVID-positive, no leukocytosis, absolute neutrophils 8.56 there is a left shift, lactate 1.8 sodium 132 chloride 97 creatinine slightly elevated at 1.4 glucose 169, 1315: Patient reevaluation he does appear slightly tremulous he does drink alcohol daily last was approximately 36 to 48 hours ago. He is having a hard time sitting up in bed. I did discuss discharge home with oral antibiotics and Paxlovid versus admission. At this time due to weakness, age, and comorbidities along with the immunosuppression and possible at risk for alcohol withdrawal, I do feel that admission may be appropriate. 1315: Hospitalist paged. Spoke with Dr. Lema who agrees to accept patient for admission. This text was generated using [employer] system, please disregard any oddities of phrase or misspellings. Medical Records Medical records reviewed: Yes I reviewed the patient's medical records. Medical records narrative: History of giant cell arteritis, peripheral neuropathy, Lab Data Lab results reviewed: Yes I reviewed the patient's lab results. Labs: 09/10/23 11:41 Blood Blood Culture - Pending 09/10/23 11:18 Blood Blood Culture - Pending Laboratory Tests Range/Units 09/10/23 09/10/23 09/10/23 11:41 12:00 12:06 WBC (4.4-10.8) 10^3/uL 10.55 RBC (4.36-5.78) 10^6/uL 4.14 L Hgb (13.5-17.5) g/dL 13.2 L Hct (40.0-50.0) % 38.0 L MCV (80-95) fL 92 MCH (27.0-33.0) pg 31.9 MCHC (32.0-36.0) % 34.7 RDW (11.8-14.1) % 12.7 Plt Count (130-400) 10^3/uL 221 MPV (8.0-11.0) fL 9.0 Immature Gran % 0.8 Neutrophils % 81.1 Lymphocytes % 4.8 Monocytes % 12.7 Eosinophils % 0.3 Basophils % 0.3 Nucleated RBC % (0.0-0.3) % 0.0 Absolute Neutrophils (1.2-6.7) 10^3/uL 8.56 H Absolute Lymphocytes (1.2-3.4) 10^3/uL 0.51 L Absolute Monocytes (0.1-0.8) 10^3/uL 1.34 H Absolute Eosinophils (0.0-0.7) 10^3/uL 0.03 Absolute Basophils (0.0-0.2) 10^3/uL 0.03 VBG Lactate (0.6-1.4) mmol/L 1.8 H Sodium (136-145) mmol/L 132 L Potassium (3.5-5.1) mmol/L 4.1 Chloride (98-107) mmol/L 97 L Carbon Dioxide (21.0-32.0) mmol/L 26.6 Anion Gap (3-11) mmol/L 8.4 BUN (7-18) mg/dL 17 Creatinine (0.70-1.30) mg/dL 1.4 H Est GFR (CKD-EPI 2020) (mL/min/1.73m2) 52.74 Glucose (74-106) mg/dL 169 H Calcium (8.5-10.1) mg/dL 9.1 Total Bilirubin (0.2-1.0) mg/dL 0.5 AST (15-37) U/L 20 ALT (16-63) U/L 24 Alkaline Phosphatase (46-116) U/L 76 Total Protein (6.4-8.2) g/dL 7.1 Albumin (3.4-5.0) g/dL 3.5 Lipase (16-77) U/L 48 Urine Color (Yellow) Yellow Urine Clarity (Clear) Clear Urine pH (5-8) 6.0 Ur Specific [place] (1.005-1.025) 1.020 Urine Protein (Negative) mg/dL 30 H Urine Ketones (Negative) mg/dL Negative Urine Blood (Negative) Negative Urine Nitrite (Negative) Negative Urine Bilirubin (Negative) Negative Urine Urobilinogen (Up to 0.2) mg/dL 0.2 Ur Leukocyte Esterase (Negative) Negative Urine RBC (0-2) HPF Negative Urine WBC (0-5) HPF Negative Ur Epithelial Cells (Negative) HPF Rare Urine Crystals (Negative) HPF Negative Urine Bacteria (Negative) HPF Negative Urine Casts (Negative) LPF 0-2 Hyaline Urine Mucus (Negative) Negative Ur Culture Indicated? No Urine Glucose (Negative) mg/dL Negative COVID-19 Source Nasopharynx SARS-CoV-2 (PCR) (Negative) Positive A Influenza Type A (PCR) (Negative) Negative Influenza Type B (PCR) (Negative) Negative RSV (PCR) (Negative) Negative HPI General Mode of arrival: EMS. Date/Time Provider Initiated Documentation: 09/10/23 11:16. Limitations to Documentation: no limitations. Information obtained by: patient, RN notes reviewed and old records reviewed. HPI Narrative: 72-year-old male presents to the ER via EMS with a chief complaint of weakness and fever. Patient reports that he was unable to get out of bed this morning due to weakness. He does have a low-grade fever here upon arrival. He denies any throat or ear pain. He does report slight URI. He does not have any gross motor neurodeficits noted. He does have a history of giant cell arteritis and is on daily prednisone. He did not take his 10 mg of prednisone this morning. Related Data Home Medications Medication Instructions Recorded Confirmed vitamin B complex (B 1 tab PO DAILY 05/06/21 09/10/23 Complex-Vitamin B12 tablet) calcium carbonate 600 mg calcium 600 mg PO BID 09/20/22 09/10/23 (1,500 mg) tablet cholecalciferol (vitamin D3) 25 25 mcg PO DAILY 09/20/22 09/10/23 mcg (1,000 unit) capsule amlodipine 5 mg tablet 5 mg PO DAILY #90 tabs 01/22/23 09/10/23 aspirin 325 mg tablet 325 mg PO DAILY 02/13/23 09/10/23 tamsulosin 0.4 mg capsule (Flomax) 0.8 mg (2 x 0.4 mg) PO DAILY #180 03/29/23 09/10/23 tab-caps blood sugar diagnostic #100 ea 07/25/23 09/10/23 blood-glucose meter #1 ea 07/25/23 09/10/23 lancets #100 ea 07/25/23 09/10/23 prednisone 1 mg tablet See Rx Instructions .Route .COMPLEX 09/10/23 09/10/23 nirmatrelvir 300 mg (150 mg See Rx Instructions .Route 09/11/23 x2)-ritonavir 100 mg tablet,dose .COMPLEX #30 dose pk pack (Paxlovid) Previous Rx's Medication Instructions Recorded amlodipine 5 mg tablet 5 mg PO DAILY #90 tabs 01/22/23 tamsulosin 0.4 mg capsule (Flomax) 0.8 mg (2 x 0.4 mg) PO DAILY #180 03/29/23 tab-caps blood sugar diagnostic #100 ea 07/25/23 blood-glucose meter #1 ea 07/25/23 lancets #100 ea 07/25/23 nirmatrelvir 300 mg (150 mg See Rx Instructions .Route 09/11/23 x2)-ritonavir 100 mg tablet,dose .COMPLEX #30 dose pk pack (Paxlovid) Allergies Allergy/AdvReac Type Severity Reaction Status Date / Time amoxicillin [From Augmentin] AdvReac Intermediate vomiting, Verified 09/10/23 11:14 GI Upset atenolol AdvReac Intermediate off Verified 09/10/23 11:14 balance, dizzy clavulanic acid AdvReac Intermediate vomiting, Verified 09/10/23 11:14 [From Augmentin] GI Upset General Stated Complaint: GenMedical ASIM: 3 Review of Systems All systems reviewed & are unremarkable except as noted in HPI and below Constitutional Constitutional: Reports fever(s) and Reports weakness Neurologic Neurologic: Reports weakness PFSH All Active Problems (Updated 09/11/23 @ 16:30 by Lolly Barrios NP) Weakness (Acute) Discharge planning issues (Acute) COVID-19 (Acute) Peripheral neuropathy (Chronic 05/07/18) EtOH related; [facility] Neuro 2017 & 2022 Impaired fasting glucose (Chronic 05/07/18) Monitor annual A1Cs; +fam hx DMT2 Hypertension (Chronic 05/07/18) Goal 135-145 (lower & he feels poor)--didn't tolerate Lisinopril Benign prostatic hyperplasia (Chronic 05/13/18) RX Flomax History of alcohol abuse (Chronic 05/07/18) Family history of prostate cancer in father (Chronic) Also PGF Hyperlipidemia (Chronic ~07/2021) Recommend statin 07/2021; [facility] Read obtained lipoprotein a, elevated--> cardiology recommends consider statin 01/2022 Elevated lipoprotein A level (Acute ~12/2021) PMR (polymyalgia rheumatica) (Acute ~04/2022) Abnormal gait (Acute ~06/2022) Peripheral neuropathy + vestibular ([facility] Neuro 01/2023) On prednisone therapy (Acute ~04/2022) Anemia (Chronic ~08/2022) GCA (giant cell arteritis) (Acute ~11/2022) [facility] Endo--RX Actremra 01/2023 Steroid-induced diabetes (Acute ~09/2022) Immunosuppressed status (Acute) LT prednisone for GCA Onychomycosis (Acute) Nail dystrophy (Acute) Medical History Candidal paronychia Elevated serum creatinine Left scapholunate ligament tear Fracture of distal end of left radius (10/26/22) Immunization refused (~02/2022) Tachycardia property assessment monitor stable--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 Seborrheic dermatitis of scalp Edema of lower extremity (05/07/18) Occurred x1, RX Furosemide and never reoccurred even off Furosemide Anxiety (05/07/18) GERD (gastroesophageal reflux disease) (05/07/18) Hepatomegaly (05/07/18) Resolved off EtOH Surgical History Tonsillectomy Appendectomy Family History Father , 73yo from metastatic prostate cancer Essential hypertension Heart disease Myocardial infarction Neoplasm Prostate Mother , early 70s diabetes complications Diabetes Paternal Grandfather , prostate cancer Neoplasm Prostate Social History Smoking/Tobacco Use Status: Former Tobacco Use Quit Date: 11/26/71 Smoking risk assessment performed?: Yes Alcohol Intake: current Alcohol Intake frequency: a few times a week Alcohol type: beer Drug use: Never Substance use type: does not use Household members: none Housing: house Number of Children: 3 Communication Needs: Corrective Lenses 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 Appears stated age. Normal body habitus. Does feel hot to touch. Head: Normocephalic, no trauma. Eyes: Pupils PERRL, Red reflex noted, EOM's intact. Eyelids symmetrical without lesions, discharge, or swelling. Chest: Tachycardia, Normal S1, S2, distal pulses intact. Resp: Lungs clear to auscultation bilaterally, no wheezes, rales, or rhonchi. Abdomen: Soft, non-distended, Normoactive bowel sounds all 4 quads. Musculoskeletal: Unable to assess gait, 3/5 strength to all four extremities. Skin: No suspicious rashes or lesions. Capillary refill less than 2 sec. Neurologic: Cranial nerves II-XII intact. Alert and oriented x 3. Motor: No deficits noted. Sensory: Intact bilaterally all 4 extremities. Hematologic/Lymphatic: No ecchymosis, no lymphadenopathy. Course Vital Signs Vital signs: Vital Signs Temperature 37.6 C H 09/10/23 11:09 Pulse 113 H 09/10/23 11:09 Respiratory Rate 20 09/10/23 11:09 Blood Pressure 162/75 H 09/10/23 11:09 Pulse Oximetry 92 09/10/23 11:09 Temperature 37.6 C H 09/10/23 11:09 Temperature Source Skin 09/10/23 11:09 Pulse 113 H 09/10/23 11:09 Respiratory Rate 20 09/10/23 11:09 Respiratory Effort Normal, Non-Labored 09/10/23 11:14 Blood Pressure 162/75 H 09/10/23 11:09 Blood Pressure Position Sitting 09/10/23 11:09 Pulse Oximetry 92 09/10/23 11:09 Oxygen Delivery Method Room Air 09/10/23 11:09 Oxygen Flow Rate 0 09/10/23 11:09 Lab/Test Results Lab/Test Results: 09/10/23 11:18 Blood Blood Culture - Pending 09/10/23 11:18 Blood Blood Culture - Pending PAWSS Have you Been Recently Intoxicated or Drunk Within the Last 30 days?: No Have you Ever Experienced Previous Episodes of Alcohol Withdrawal?: No Have you ever Experienced Withdrawal Seizures?: No Have you ever Experienced Delirium Tremens(DT)s?: No Have you ever undergone Alcohol Rehabilitation Treatment (i.e, inpt ot outpatient treatment programs)?: No Have you ever Experienced Blackouts?: No Have you ever Combined Alcohol with other Downers within the last 90 days?: No Have you ever Combined Alcohol with any other Substance of Abuse during the last 90 days?: No Positive Blood Alcohol level on Presentation? [PCS.BAL]: No Evidence of Increased Autonomic Activity (i.e. HR>120, tremor, sweating, agitation, nausea)?: No Result: 0
[2023-09-10 11:49] LABS: Lactate 1.8 mmol/L (0.6-1.4)
[2023-09-10 11:53] LABS: Abs Immature Grans 0.08 10^3/uL (0.0-0.06); Absolute Basophil Count 0.03 10^3/uL (0.0-0.2); Absolute Eosinophil Count 0.03 10^3/uL (0.0-0.7); Absolute Lymphocyte Count 0.51 10^3/uL (1.2-3.4); Absolute Monocyte Count 1.34 10^3/uL (0.1-0.8); Absolute Neutrophil Count 8.56 10^3/uL (1.2-6.7); Basophils % 0.3; Eosinophils % 0.3; HGB 13.2 g/dL (13.5-17.5); Immature Grans % 0.8; Lymphocytes % 4.8; MCH 31.9 pg (27.0-33.0); MCHC 34.7 % (32.0-36.0); MCV 92 fL (80-95); Monocytes % 12.7; Neutrophils % 81.1; Platelet Count 221 10^3/uL (130-400); RBC 4.14 10^6/uL (4.36-5.78); RDW 12.7 % (11.8-14.1); RDW-SD 42.2 fL; WBC 10.55 10^3/uL (4.4-10.8)
[2023-09-10] MEDS: predniSONE 10 MG TAB PO (12:03)
[2023-09-10] MEDS: Normal Saline 1,000 ML 250 ML IV (12:03)
[2023-09-10] MEDS: Acetaminophen 500 MG TAB PO (12:03)
[2023-09-10 12:09] LABS: ALT 24 U/L (16-63); AST 20 U/L (15-37); Albumin 3.5 g/dL (3.4-5.0); Alkaline Phosphatase 76 U/L (46-116); Anion Gap 8.4 mmol/L (3-11); BUN 17 mg/dL (7-18); Bilirubin, Total 0.5 mg/dL (0.2-1.0); CO2 26.6 mmol/L (21.0-32.0); CREATININE 1.4 mg/dL (0.70-1.30); Calcium 9.1 mg/dL (8.5-10.1); Chloride 97 mmol/L (98-107); Estimated GFR 52.74 (mL/min/1.73m2); Glucose 169 mg/dL (74-106); Lipase 48 U/L (16-77); Potassium 4.1 mmol/L (3.5-5.1); Sodium 132 mmol/L (136-145); Total Protein 7.1 g/dL (6.4-8.2)
[2023-09-10] MEDS: Normal Saline Flush 10 ML SYR IVP (12:10)
[2023-09-10 12:17] LABS: Bilirubin Negative (Negative); Blood Negative (Negative); Clarity Clear (Clear); Glucose Negative (Negative); Ketones Negative (Negative); Leukocyte Esterase Negative (Negative); Nitrite Negative (Negative); Urobilinogen 0.2 mg/dL (Up to 0.2)
[2023-09-10 12:23] LABS: Bacteria Negative HPF (Negative); C & S Indicated? No; Casts 0-2 Hyaline LPF (Negative); Crystals Negative HPF (Negative); Epithelial Cells Rare HPF (Negative); Mucus Negative (Negative); RBC Negative HPF (0-2); WBC Negative HPF (0-5)
--- NOTE | 2023-09-10 12:23 | NUR.NOTE ---
Patient presented to ED for c/o generalized weakness, alert and oriented, denies pain, vitals stable, requested a sandwhich and water: provided by nurse. No further needs identified at this time. Encouraged patient to call for any need/assit.
[2023-09-10 12:51] LABS: Influenza A PCR Negative (Negative); Influenza B PCR Negative (Negative); RSV PCR Negative (Negative)
[2023-09-10 12:58] LABS: COVID-19 PCR Positive (Negative); Source Nasopharynx
[2023-09-10] MEDS: AZITHROMYCIN 500 MG in Normal Saline 250 ML 250 MG IVPB (13:25)
--- NOTE | 2023-09-10 15:20 | HPE_ITS ---
Date of service: 09/10/23 Time of Service: 15:20 Assessment and Plan Assessment and plan (1) COVID-19: Status: Acute Assessment and plan: Weak, bodyaches. Not hypoxic. Cont Paxlovid Supportive care. Feeling better than at time of presentation to ED. (2) Hypertension: Status: Chronic Assessment and plan: Cont amlodipine Monitor. Qualifiers: Hypertension type: essential hypertension Qualified Code(s): I10 - Essential (primary) hypertension (3) History of alcohol abuse: Status: Chronic Assessment and plan: Mild tremor currently. CIWA monitoring. Initial CIWA score at time of admission was 1. Will give a dose of ativan tonight and initiate withdrawal treatment if warranted. (4) Benign prostatic hyperplasia: Status: Chronic Assessment and plan: Holding tamsulosin d/t interaction with Paxlovid. Qualifiers: Lower urinary tract symptom presence: symptoms absent Qualified Code(s): N40.0 - Benign prostatic hyperplasia without lower urinary tract symptoms (5) Hyperlipidemia: Status: Chronic Assessment and plan: Not on medication for this issue. Qualifiers: Hyperlipidemia type: elevated lipoprotein(a) Qualified Code(s): E78.41 - Elevated Lipoprotein(a) (6) Discharge planning issues: Status: Acute Assessment and plan: Likely home w/o services. History of Present Illness History of Present Illness Chief Complaint: Fever, weakness Narrative: This is a 72 yo male with a PMH of polymalgia rhematica, giant cell arteritis, HTN, alcohol use disorder, HLD, DM-steroid induced, who presented via EMS with complaint of weakness and fever. + bodyaches and mild URI symptoms but very infrequent cough. He stated he couldn't get out of bed on the AM of admission d/t weakness. In the ED he was found to be Covid-19positive. WBC count normal. Hgb 13.2. Na 132. K 4.1. Creatinine 1.4. BUN 17. Lactate 1.8. He noted to have mild tremors and endorsed generally daily Etoh intake but none for almost 48 hours. He was not hypoxic. CXR was w/o acute pulmonary findings. Paxlovid initiated in the ED. At this time, given he is not hypoxic, no dexamethasone initiated. Review of Systems All systems reviewed & are unremarkable except as noted in HPI and below PFSH All Active Problems (Updated 09/10/23 @ 17:07 by Hebert Lema MD) Discharge planning issues (Acute) COVID-19 (Acute) Peripheral neuropathy (Chronic 05/07/18) EtOH related; [facility] 2017 & 2022 Impaired fasting glucose (Chronic 05/07/18) Monitor annual A1Cs; +fam hx DMT2 Hypertension (Chronic 05/07/18) Goal 135-145 (lower & he feels poor)--didn't tolerate Lisinopril Benign prostatic hyperplasia (Chronic 05/13/18) RX Flomax History of alcohol abuse (Chronic 05/07/18) Family history of prostate cancer in father (Chronic) Also PGF Hyperlipidemia (Chronic ~07/2021) Recommend statin 07/2021; [facility] Read obtained lipoprotein a, elevated--> cardiology recommends consider statin 01/2022 Elevated lipoprotein A level (Acute ~12/2021) PMR (polymyalgia rheumatica) (Acute ~04/2022) Abnormal gait (Acute ~06/2022) Peripheral neuropathy + vestibular ([facility] 01/2023) On prednisone therapy (Acute ~04/2022) Anemia (Chronic ~08/2022) GCA (giant cell arteritis) (Acute ~11/2022) [facility] Endo--RX Actremra 01/2023 Steroid-induced diabetes (Acute ~09/2022) Immunosuppressed status (Acute) LT prednisone for GCA Onychomycosis (Acute) Nail dystrophy (Acute) Medical History Candidal paronychia Elevated serum creatinine Left scapholunate ligament tear Fracture of distal end of left radius (10/26/22) Immunization refused (~02/2022) Tachycardia pipe jeeper stable--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 Seborrheic dermatitis of scalp Edema of lower extremity (05/07/18) Occurred x1, RX Furosemide and never reoccurred even off Furosemide Anxiety (05/07/18) GERD (gastroesophageal reflux disease) (05/07/18) Hepatomegaly (05/07/18) Resolved off EtOH Surgical History Tonsillectomy Appendectomy Family History Father , 73yo from metastatic prostate cancer Essential hypertension Heart disease Myocardial infarction Neoplasm Prostate Mother , early 70s diabetes complications Diabetes Paternal Grandfather , prostate cancer Neoplasm Prostate Social History Smoking/Tobacco Use Status: Former Tobacco Use Quit Date: 11/26/71 Smoking risk assessment performed?: Yes Alcohol Intake: current Alcohol Intake frequency: a few times a week Alcohol type: beer Drug use: Never Substance use type: does not use Household members: none Housing: apartment Number of Children: 3 Communication Needs: Corrective Lenses 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 Current gender identity: male What is your relationship status?: Panel score (0-1 are the most socially isolated patients): 0 What type of physical activity do you participate in: walking Duration: 15-30 minutes/day Frequency: 3-4 times per week Seatbelt use: always Drive intox or 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 school bus driver/teacher assistant: No Working smoke detector in home: Yes Fire extinguisher in home: Yes Carbon monox detector in home: Yes Do you feel safe at home: Yes Do you feel safe in your relationship?: Yes Meds Allergies and Home Medications Allergies Allergy/AdvReac Type Severity Reaction Status Date / Time amoxicillin [From Augmentin] AdvReac Intermediate vomiting, Verified 09/10/23 11:14 GI Upset atenolol AdvReac Intermediate off Verified 09/10/23 11:14 balance, dizzy clavulanic acid AdvReac Intermediate vomiting, Verified 09/10/23 11:14 [From Augmentin] GI Upset Home Medications Medication Instructions Recorded Confirmed Type vitamin B complex (B 1 tab PO DAILY 05/06/21 09/10/23 History Complex-Vitamin B12 tablet) zinc 50 mg tablet 50 mg PO DAILY 05/06/21 09/10/23 History calcium carbonate 600 mg calcium 600 mg PO BID 09/20/22 09/10/23 History (1,500 mg) tablet cholecalciferol (vitamin D3) 25 25 mcg PO DAILY 09/20/22 09/10/23 History mcg (1,000 unit) capsule amlodipine 5 mg tablet 5 mg PO DAILY #90 tabs 01/22/23 09/10/23 Rx aspirin 325 mg tablet 325 mg PO DAILY 02/13/23 09/10/23 History tamsulosin 0.4 mg capsule (Flomax) 0.8 mg (2 x 0.4 mg) PO DAILY #180 03/29/23 09/10/23 Rx tab-caps blood sugar diagnostic #100 ea 07/25/23 09/10/23 Rx blood-glucose meter #1 ea 07/25/23 09/10/23 Rx lancets #100 ea 07/25/23 09/10/23 Rx prednisone 5 mg tablet 10 mg PO DAILY 08/30/23 09/10/23 History Exam Narrative Exam Narrative: General: Lying supine. Pleasant and conversant. States he is feeling better. Head: Normocephalic, no trauma. Eyes: Sclera clear. MMM Chest: Tachycardia, Normal S1, S2, distal pulses intact. Resp: Lungs clear to auscultation bilaterally. Abdomen: Soft, non-distended, normal BS. Skin: No rashes, lesions. Neurologic: Alert and oriented x 3. Motor: No deficits noted. Psych: Normal appearance and speech. Affect appropriate. Results Labs 09/10/23 11:41 09/10/23 11:41 Labs: Laboratory Results - last 24 hr 09/10/23 09/10/23 09/10/23 11:41 12:00 12:06 WBC 10.55 RBC 4.14 L Hgb 13.2 L Hct 38.0 L MCV 92 MCH 31.9 MCHC 34.7 RDW 12.7 Plt Count 221 MPV 9.0 Immature Gran % 0.8 Neutrophils % 81.1 Lymphocytes % 4.8 Monocytes % 12.7 Eosinophils % 0.3 Basophils % 0.3 Nucleated RBC % 0.0 Absolute Neutrophils 8.56 H Absolute Lymphocytes 0.51 L Absolute Monocytes 1.34 H Absolute Eosinophils 0.03 Absolute Basophils 0.03 VBG Lactate 1.8 H Sodium 132 L Potassium 4.1 Chloride 97 L Carbon Dioxide 26.6 Anion Gap 8.4 BUN 17 Creatinine 1.4 H Est GFR (CKD-EPI 2020) 52.74 Glucose 169 H Calcium 9.1 Total Bilirubin 0.5 AST 20 ALT 24 Alkaline Phosphatase 76 Total Protein 7.1 Albumin 3.5 Lipase 48 Urine Color Yellow Urine Clarity Clear Urine pH 6.0 Ur Specific [place] 1.020 Urine Protein 30 H Urine Ketones Negative Urine Blood Negative Urine Nitrite Negative Urine Bilirubin Negative Urine Urobilinogen 0.2 Ur Leukocyte Esterase Negative Urine RBC Negative Urine WBC Negative Ur Epithelial Cells Rare Urine Crystals Negative Urine Bacteria Negative Urine Casts 0-2 Hyaline Urine Mucus Negative Ur Culture Indicated? No Urine Glucose Negative COVID-19 Source Nasopharynx SARS-CoV-2 (PCR) Positive A Influenza Type A (PCR) Negative Influenza Type B (PCR) Negative RSV (PCR) Negative Last Vital Signs Temp 37.6 C H 09/10/23 11:09 Pulse 94 H 09/10/23 14:00 Resp 20 09/10/23 11:09 BP 127/44 L 09/10/23 14:00 Pulse Ox 94 09/10/23 14:50 PAWSS Have you Been Recently Intoxicated or Drunk Within the Last 30 days?: No Have you Ever Experienced Previous Episodes of Alcohol Withdrawal?: No Have you ever Experienced Withdrawal Seizures?: No Have you ever Experienced Delirium Tremens(DT)s?: No Have you ever undergone Alcohol Rehabilitation Treatment (i.e, inpt ot outpatient treatment programs)?: No Have you ever Experienced Blackouts?: No Have you ever Combined Alcohol with other Downers within the last 90 days?: No Have you ever Combined Alcohol with any other Substance of Abuse during the last 90 days?: No Positive Blood Alcohol level on Presentation? [PCS.BAL]: No Evidence of Increased Autonomic Activity (i.e. HR>120, tremor, sweating, agitation, nausea)?: No Result: 0 Time Spent Time spent with Patient: 40-54 minutes Time was spent: preparing to see the patient(eg.review tests), obtaining and/or reviewing separately otained hiistory, ordering medications,tests, procedures, referring, communicating with other health career development manager, indepentently interpreting results, counseling the patient and care coordination
[2023-09-10] MEDS: Enoxaparin 40 MG/0.4 ML SYR SC (18:11)
[2023-09-10] MEDS: Acetaminophen 325 MG TAB PO (18:19)
[2023-09-10] MEDS: LORazepam 1 MG TAB PO (21:08)
[2023-09-10] MEDS: Calcium Carbonate 1.5 GM TAB PO (21:08)
[2023-09-11 01:15] VITALS: BP 149/75; PULSE 70; RESP 15; TEMP 36.6; O2SAT 97
[2023-09-11 04:59] VITALS: BP 154/74; PULSE 61; RESP 15; TEMP 37.3; O2SAT 97
[2023-09-11 07:15] VITALS: O2SAT 97
[2023-09-11 07:32] LABS: Anion Gap 9.4 mmol/L (3-11); BUN 14 mg/dL (7-18); CO2 25.6 mmol/L (21.0-32.0); CREATININE 1.1 mg/dL (0.70-1.30); Calcium 9.1 mg/dL (8.5-10.1); Chloride 101 mmol/L (98-107); Estimated GFR 70.44 (mL/min/1.73m2); Glucose 104 mg/dL (74-106); Magnesium 2.1 mg/dL (1.8-2.4); Potassium 3.4 mmol/L (3.5-5.1); Sodium 136 mmol/L (136-145)
[2023-09-11] MEDS: Aspirin 325 MG TAB PO (09:19)
[2023-09-11] MEDS: amLODIPine 5 MG TAB PO (09:19)
[2023-09-11] MEDS: Cholecalciferol (Vitamin D3) 1,000 UNIT TAB 1000 UNITS PO (09:19)
[2023-09-11] MEDS: Zinc Sulfate 220 MG TAB PO (09:20)
[2023-09-11] MEDS: Calcium Carbonate 1.5 GM TAB PO (09:20)
[2023-09-11 09:24] VITALS: BP 149/75; PULSE 75; RESP 16; O2SAT 96
--- NOTE | 2023-09-11 09:40 | IN_ITS ---
Date of service: 09/11/23 Time of Service: 09:40 PT Notes Visit Reasons: Covid-19, alcohol withdrawl, weakness Physical Therapy Inpatient Initial Evaluation Date: 09/11/2023 Referring Doctor: Hebert Lema MD PT Orders: PT CONSULT: Eval/treat Precautions: Fall. Standard. Activity as tolerated. Airborne precautions in place for COVID-19 infection. Patient Profile/Admitting Diagnosis: Judson is a 72-year-old male who presented to the ED on 09/10/2023 due to generalized weakness and low-grade fever. Patient is admitted to [facility] for management of COVID-19 infection, history of EtOH abuse, benign prostatic hyperplasia, and hyperlipidemia. PMHX: All Active Problems (Updated 09/10/23 @ 17:07 by Hebert Lema MD) Discharge planning issues (Acute) COVID-19 (Acute) Peripheral neuropathy (Chronic 05/07/18) EtOH related; [facility] [place] [facility] [place] & 2022 Impaired fasting glucose (Chronic 05/07/18) Monitor annual A1Cs; +fam hx DMT2 Hypertension (Chronic 05/07/18) Goal 135-145 (lower & he feels poor)--didn't tolerate Lisinopril Benign prostatic hyperplasia (Chronic 05/13/18) RX Flomax History of alcohol abuse (Chronic 05/07/18) Family history of prostate cancer in father (Chronic) Also PGF Hyperlipidemia (Chronic ~07/2021) Recommend statin 07/2021; Prototype Engineer Reynaldo Read obtained lipoprotein a, elevated--> cardiology recommends consider statin 01/2022 Elevated lipoprotein A level (Acute ~12/2021) PMR (polymyalgia rheumatica) (Acute ~04/2022) Abnormal gait (Acute ~06/2022) Peripheral neuropathy + vestibular ([facility] [place] [facility] 01/2023) On prednisone therapy (Acute ~04/2022) Anemia (Chronic ~08/2022) GCA (giant cell arteritis) (Acute ~11/2022) [facility] [place] [facility]--RX Actremra 01/2023 Steroid-induced diabetes (Acute ~09/2022) Immunosuppressed status (Acute) LT prednisone for GCA Onychomycosis (Acute) Nail dystrophy (Acute) Medical History Candidal paronychia Elevated serum creatinine Left scapholunate ligament tear Fracture of distal end of left radius (10/26/22) Immunization refused (~02/2022) 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 Independent with all aspects radials prior to surgery. 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 Equipment Owned/DME: None Subjective: Does not feel strong enough to manage alone at home. Hopeful that he can stay 1 day more to and feel better before discharge. Feels really weak and by COVID infection. Concerned about how he is given manage the flight of steps to his apartment when he goes home. Objective: General Observation: Supine in bed. No lines attached. Mental Status: Alert and oriented as to person, place, time, and purpose. Able to pay attention, focus, and respond appropriately. Pain: Denies Vital Signs: Closely monitored by nursing staff ROM: Right Upper Extremity: Shoulder Flexion WFL. Shoulder abduction WFL. Elbow flexion WFL. Wrist flexion WFL. Functional opening and closing of hand WFL. Left Upper Extremity: Shoulder Flexion WFL. Shoulder abduction WFL. Elbow flexion WFL. Wrist flexion WFL. Functional opening and closing of hand WFL. Right Lower Extremity: Hip flexion WFL. Hip abduction WFL. Knee flexion WFL. Ankle dorsiflexion WFL. Ankle plantarflexion WFL. Left Lower Extremity: Hip flexion WFL. Hip abduction WFL. Knee flexion WFL. Ankle dorsiflexion WFL. Ankle plantarflexion WFL. Strength: Right Upper Extremity: Shoulder flexors 4-/5. Shoulder abductors 4-/5. Elbow flexors 4/5. Elbow extensors 4/5. Gun Mechanic strong. Left Upper Extremity: Shoulder flexors 4-/5. Shoulder abductors 4-/5. Elbow flexors 4/5. Elbow extensors 4/5. Gun Mechanic strong. Right Lower Extremity: Hip flexors 4-/5. Hip abductors 4-/5. Knee flexors 4/5. Knee extensors 4-/5. Ankle dorsiflexors 4-/5. Ankle plantarflexors 4-/5. Left Lower Extremity: Hip flexors 4-/5. Hip abductors 4-/5. Knee flexors 4/5. Knee extensors 4-/5. Ankle dorsiflexors 4-/5. Ankle plantarflexors 4-/5. Bed Mobility/Transfers: Rolling independent Supine to sit independent Sit to supine independent Sit to stand with modified independent using B UE for support and FWW, initial cues given for safe technique Stand to sit with modified independent using B UE for support and FWW, initial cues given for safe technique Gait: Instructed patient with level surface ambulation of 30 feet + 30 feet using FWW requiring distant supervision. Chelsie decreased. Step height decreased. Step length decreased. Balance: Static Sitting: Normal Dynamic Sitting: Normal Static Standing: Fair Dynamic Standing: Fair Special Tests: Mobility Limitations Standardized Measure [facility] 6 clicks Basic Mobility Inpatient Short Form: Raw Score: 22 CMS Score: 21% deficit 4-Stage Balance Test: Feet together 10 seconds Semi-tandem 10 seconds Full tandem <10 seconds One-legged stance <10 seconds Informed Consent/Education: Patient was instructed in purpose of PT consult and plan of care. Agreeable to proceed with established PT POC to achieve personal goals. THERA EX: Facilitated safe and quick performance of standing level exercises with adequate rest provided in between to minimize fatigue: Bilateral heel raises x 5 for 2 sets with deep breathing exercises Partial knee bends x 5 for 2 sets with deep breathing exercises ASSESSMENT: Unsteady during his sit<>stand movement transition, cues were given for slow movement and to ensure that patient uses bilateral upper extremities for support to reduce fall risk. Did not feel safe walking without the walker. Patient was made independent inside room by using front wheeled walker to reduce fall risk. Agreeable to bringing and using walker at home. May need lift assist to get into apartment if no family/friends are available to help. Patient presents with clinical signs and symptoms consistent with current/admitting diagnoses that have resulted to mobility limitations, gait instability, generalized weakness, and overall ADL decline as demonstrated by the following impairment level findings: 1. Decreased strength to B UE/LE major muscle groups 2. Impaired sitting/standing balance 3. Impaired activity tolerance 4. Shortness of breath Impairments are contributing to the following functional limitations: 1. Decline in bed mobility skills 2. Decline in transfer skills 3. Difficulty with ambulation without assistive device 4. Increased completion time for mobility ADL performance 5. Increased risk for falls 6. Difficulty with managing steps alone safely Patient is assessed as a 05937 moderate complexity based on the following: History: 72-year-old male with past medical history as indicated above Examination: Demonstrable impairment in strength, balance, and mobility level with underlying impairments and functional limitations as exhibited above as well as deficit score of 21% utilizing the [facility] Mobility Inpatient Short Form Presentation: Evolving Decision Makin moderate complexity complexity Goals: Goals X1 week 1. Independent stepping activity x 15 with B UE support inside room using stepper 2. Independent with home exercise program 3. Good static and dynamic standing balance/tolerance Plan of Care/Treatment Plan: 1-2x/day, 7 days/week x 1 week. Plan of care has been reviewed with the CIVIL ENGINEER'S AIDE providing the service under Physical Therapy direction. Initiate Physical Therapy intervention for pain management as needed, strengthening, bed mobility, transfers, gait, stairs, balance training, and use of assistive device. DISCHARGE RECOMMENDATIONS: [] Home with no services [] [X] Home with services. Patient will benefit from home health PT services in order to progress mobility level using least restrictive assistive ambulatory device, assess home safety, identify additional equipment needs, and establish a functional maintenance program that will increase ability of patient to remain at home. [] Home with outpatient PT [] [] SNF for continued rehabilitation [] [] [facility] [] [] SNF versus LTC based on ability to participate and progress [] TREATMENT CODE/TIME: 65575 x 20 minutes for 1 unit, 09764 x 15 minutes for 1 unit, 44702 x 13 minutes for 1 unit beginning at 9:14 AM. Thank you for the opportunity to participate in the care of this patient. Mariaelena Cobos PT, DPT, CLT [facility] [place], [place]
--- NOTE | 2023-09-11 10:44 | PDOC.CMIN ---
Date of service: 09/11/23 Time of Service: 10:44 Care Management Initial Assmt Initial Assessment REASON FOR HOSPITALIZATION:: Covid-19, alcohol withdrawal, weakness Has patient been provided with info about the portal/API?: No Did the patient sign up for the portal?: No CODE STATUS:: Full Code INSURANCE COVERAGE / FINANCIAL ISSUES:: Medicare [facility] All Active Problems (Updated 09/10/23 @ 17:07 by Hebert Lema MD) Discharge planning issues (Acute) COVID-19 (Acute) Peripheral neuropathy (Chronic 05/07/18) EtOH related; [facility] 2017 & 2022 Impaired fasting glucose (Chronic 05/07/18) Monitor annual A1Cs; +fam hx DMT2 Hypertension (Chronic 05/07/18) Goal 135-145 (lower & he feels poor)--didn't tolerate Lisinopril Benign prostatic hyperplasia (Chronic 05/13/18) RX Flomax History of alcohol abuse (Chronic 05/07/18) Family history of prostate cancer in father (Chronic) Also PGF Hyperlipidemia (Chronic ~07/2021) Recommend statin 07/2021; White Metal Caster Reynaldo Read obtained lipoprotein a, elevated--> cardiology recommends consider statin 01/2022 Elevated lipoprotein A level (Acute ~12/2021) PMR (polymyalgia rheumatica) (Acute ~04/2022) Abnormal gait (Acute ~06/2022) Peripheral neuropathy + vestibular ([facility] 01/2023) On prednisone therapy (Acute ~04/2022) Anemia (Chronic ~08/2022) GCA (giant cell arteritis) (Acute ~11/2022) [facility]--RX Actremra 01/2023 Steroid-induced diabetes (Acute ~09/2022) Immunosuppressed status (Acute) LT prednisone for GCA Onychomycosis (Acute) Nail dystrophy (Acute) Medical History Candidal paronychia Elevated serum creatinine Left scapholunate ligament tear Fracture of distal end of left radius (10/26/22) Immunization refused (~02/2022) 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 Seborrheic dermatitis of scalp Edema of lower extremity (05/07/18) Occurred x1, RX Furosemide and never reoccurred even off Furosemide Anxiety (05/07/18) GERD (gastroesophageal reflux disease) (05/07/18) Hepatomegaly (05/07/18) Resolved off EtOH Surgical History Tonsillectomy Appendectomy Family History Father , 73yo from metastatic prostate cancer Essential hypertension Heart disease Myocardial infarction Neoplasm Prostate Mother , early 70s diabetes complications Diabetes Paternal Grandfather , prostate cancer Neoplasm Prostate Social History Smoking/Tobacco Use Status: Former Tobacco Use Quit Date: 11/26/71 Smoking risk assessment performed?: Yes Alcohol Intake: current Alcohol Intake frequency: a few times a week Alcohol type: beer Drug use: Never Substance use type: does not use Household members: none Housing: house Number of Children: 3 Communication Needs: Corrective Lenses 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
[2023-09-11 12:26] VITALS: BP 125/66; PULSE 65; RESP 20; TEMP 37.5; O2SAT 95
--- NOTE | 2023-09-11 13:21 | W.PM.DS.N ---
Date of service: 09/11/23 Time of Service: 13:21 DS: Diagnosis Discharge Diagnosis (1) COVID-19: Status: Acute Asessment and Plan: Continues to be stable on room air. Less weak today and feels he is OK to take care of himself at home Cont Paxlovid. Discussed isolation for 5 days from onset of symptoms, then masking when in public for 5 more days. (2) Hypertension: Status: Chronic Asessment and Plan: Continue amlodipine (3) History of alcohol abuse: Status: Chronic Asessment and Plan: CIWA monitoring with highest score of 2 (4) Benign prostatic hyperplasia: Status: Chronic Asessment and Plan: Holding tamsulosin until he finishes Paxlovid d/t interaction. (5) Discharge planning issues: Status: Acute Asessment and Plan: Home w/o services. PCP F/U in 1-2 weeks. Discharge Plan Disposition Patient Disposition: Home Condition: Improving Discharge Details Reason For Visit: Covid-19, alcohol withdrawl, weakness Admit Date/Time: 09/10/23 13:25 Admit Provider: Hebert Lema Attending Provider: Hebert Lema Primary Care Provider: Yesy Nagy Hospital Course Hospital Course: This is a 72 yo male with a PMH of polymalgia rhematica, giant cell arteritis, HTN, alcohol use disorder, HLD, DM-steroid induced, who presented via EMS with complaint of weakness and fever. + bodyaches and mild URI symptoms but very infrequent cough. He stated he couldn't get out of bed on the AM of admission d/t weakness. In the ED he was found to be Covid-19positive. WBC count normal. Hgb 13.2. Na 132. K 4.1. Creatinine 1.4. BUN 17. Lactate 1.8. He noted to have mild tremors and endorsed generally daily Etoh intake but none for almost 48 hours. He was not hypoxic. CXR was w/o acute pulmonary findings. Paxlovid initiated in the ED. At this time, given he is not hypoxic, no dexamethasone initiated. See Diagnosis PCP f/u in 1-2 weeks Home Meds and New Rx's Prescriptions: New Paxlovid 300 mg (150 mg x 2)-100 mg Tablets,Dose Pack See Rx Instructions .ROUTE .COMPLEX Qty: 30 0RF Rx Instructions: Take the evening dose tonight, then take for 3 days. He had 1 1/2 days of medication while hospitalized. Continued vitamin B complex [B Complex-Vitamin B12] Tablet 1 tab PO DAILY aspirin 325 mg tablet 325 mg PO DAILY Hold Instructions: Changed by Provider calcium carbonate 600 mg calcium (1,500 mg) tablet 600 mg PO BID cholecalciferol (vitamin D3) 25 mcg (1,000 unit) capsule 25 mcg PO DAILY amlodipine 5 mg tablet 5 mg PO DAILY Qty: 90 3RF prednisone 1 mg tablet See Rx Instructions .ROUTE .COMPLEX Patient Comments: TAKE 9 TABLETS BY MOUTH ONCE DAILY FOR 7 DAYS, THEN 8 FOR 7 DAYS, THEN 7 FOR 7 DAYS, THEN 6 FOR 14 DAYS, THEN 5 FOR 14 DAYS, THEN 4 FOR 14, Rx Instructions: TAKE 9 TABLETS BY MOUTH ONCE DAILY FOR 7 DAYS, THEN 8 FOR 7 DAYS, THEN 7 FOR 7 DAYS, THEN 6 FOR 14 DAYS, THEN 5 FOR 14 DAYS, THEN 4 FOR 14, Held tamsulosin [Flomax] 0.4 mg capsule 0.8 mg PO DAILY Qty: 180 3RF Hold Instructions: Restart the day following the last dose of paxlovid. Rx Instructions: Enlarged prostate; dose increase 03/29/2023 Discontinued zinc 50 mg tablet 50 mg PO DAILY No Action (DME) blood-glucose meter Kit See Rx Instructions .Route Qty: 1 0RF Rx Instructions: ONE TOUCH METER As directed to check blood glucose daily. No insulin. DX:E11.9 to maintain Hba1c <7% (DME) blood sugar diagnostic Strip See Rx Instructions .Route Qty: 100 3RF Rx Instructions: One touch test strips As directed to check blood glucose daily. no insulin. DX:E11.9 to maintain Hba1c <7% (DME) lancets Misc See Rx Instructions .Route Qty: 100 3RF Rx Instructions: As directed E11.9 for daily monitoring for A1C <=7% One touch lancets Discharge Instructions Activity:: Activity as Tolerated Equipment/Supplies:: No Equipment Needed Diet:: As Tolerated Discharge Orders Discharge Orders: Discharge Order (Routine); Ordered 09/11/23 Ordered By: Hebert Lema DS: Summary Time Spent with Patient providing and/or coordinating discharge services: Greater than 30 minutes Status at Discharge Functional status at discharge: independent ambulation Overall status at discharge: patient is progressing back to baseline Mental Status: mental status grossly normal Speech and Movement: speech and movement normal Mood: congruent mood Affect: normal affect Exam Narrative Exam Narrative: General: Lying supine. Pleasant and conversant. Appears tired. Eyes: Sclera clear. MMM Chest: RRR, S1, S2 Resp: Lungs clear to auscultation bilaterally. Abdomen: Soft, non-distended, normal BS. Skin: No rashes, lesions. Neurologic: Alert and oriented x 3. Motor: No deficits noted. Psych: Normal appearance and speech. Affect appropriate. Psych Mental Status: mental status grossly normal Speech and Movement: speech and movement normal Mood: congruent mood Affect: normal affect DS: Data Vitals/I&O Vitals and I&O: Vital Signs Temperature 37.5 C 09/11/23 12:26 Temperature Source Tympanic 09/11/23 12:26 Pulse 65 09/11/23 12:26 Pulse Rhythm Regular 09/11/23 09:43 Respiratory Rate 20 09/11/23 12:26 Respiratory Effort Normal, Non-Labored 09/11/23 09:43 Respiratory Depth Normal 09/11/23 09:43 Respiratory Pattern Normal 09/11/23 09:43 Blood Pressure 125/66 09/11/23 12:26 Blood Pressure Mean 79 09/10/23 15:01 Blood Pressure Position Sitting 09/10/23 11:09 Pulse Oximetry 95 09/11/23 12:26 Oxygen Delivery Method Room Air 09/11/23 12:26 Oxygen Flow Rate 0 09/11/23 12:26 Pain Level 4 09/11/23 12:26 Intake & Output 09/10/23 09/11/23 09/11/23 23:59 11:59 23:59 Intake Total 270 / 270 1360 / 1360 Balance 270 / 270 1360 / 1360 Weight 69.2 kg Intake: IV 270 / 270 1000 / 1000 Oral 360 / 360 Other: Urine Color Yellow Yellow Urine Appearance Sediment Clear Comment urine not measured. not measured. Voiding Methods Toilet Toilet Data Completed and Pending Labs on day of discharge: Labs from last 24 hours 09/11/23 07:00 Sodium 136 Potassium 3.4 L Chloride 101 Carbon Dioxide 25.6 Anion Gap 9.4 BUN 14 Creatinine 1.1 Est GFR (CKD-EPI 2020) 70.44 Glucose 104 Calcium 9.1 Magnesium 2.1 09/10/23 16:00 Blood Blood Culture - Pending 09/10/23 11:41 Blood Blood Culture - Pending Preliminary micro results at discharge 09/10/23 16:00 Blood Culture - Pending Blood 09/10/23 11:41 Blood Culture - Pending Blood PFSH All Active Problems Discharge planning issues (Acute) COVID-19 (Acute) Peripheral neuropathy (Chronic 05/07/18) EtOH related; [facility] [place] 2017 & 2022 Impaired fasting glucose (Chronic 05/07/18) Monitor annual A1Cs; +fam hx DMT2 Hypertension (Chronic 05/07/18) Goal 135-145 (lower & he feels poor)--didn't tolerate Lisinopril Benign prostatic hyperplasia (Chronic 05/13/18) RX Flomax History of alcohol abuse (Chronic 05/07/18) Family history of prostate cancer in father (Chronic) Also PGF Hyperlipidemia (Chronic ~07/2021) Recommend statin 07/2021; Retail General Manager Reynaldo Read obtained lipoprotein a, elevated--> cardiology recommends consider statin 01/2022 Elevated lipoprotein A level (Acute ~12/2021) PMR (polymyalgia rheumatica) (Acute ~04/2022) Abnormal gait (Acute ~06/2022) Peripheral neuropathy + vestibular ([facility] [place] [facility] 01/2023) On prednisone therapy (Acute ~04/2022) Anemia (Chronic ~08/2022) GCA (giant cell arteritis) (Acute ~11/2022) [facility] [place]--RX Actremra 01/2023 Steroid-induced diabetes (Acute ~09/2022) Immunosuppressed status (Acute) LT prednisone for GCA Onychomycosis (Acute) Nail dystrophy (Acute) Medical History Candidal paronychia Elevated serum creatinine Left scapholunate ligament tear Fracture of distal end of left radius (10/26/22) Immunization refused (~02/2022) Tachycardia gambling monitor stable--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 Seborrheic dermatitis of scalp Edema of lower extremity (05/07/18) Occurred x1, RX Furosemide and never reoccurred even off Furosemide Anxiety (05/07/18) GERD (gastroesophageal reflux disease) (05/07/18) Hepatomegaly (05/07/18) Resolved off EtOH Surgical History Tonsillectomy Appendectomy Family History Father , 73yo from metastatic prostate cancer Essential hypertension Heart disease Myocardial infarction Neoplasm Prostate Mother , early 70s diabetes complications Diabetes Paternal Grandfather , prostate cancer Neoplasm Prostate Social History Smoking/Tobacco Use Status: Former Tobacco Use Quit Date: 11/26/71 Smoking risk assessment performed?: Yes Alcohol Intake: current Alcohol Intake frequency: a few times a week Alcohol type: beer Drug use: Never Substance use type: does not use Household members: none Housing: house Number of Children: 3 Communication Needs: Corrective Lenses 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 Current gender identity: male What is your relationship status?: Panel score (0-1 are the most socially isolated patients): 0 What type of physical activity do you participate in: walking Duration: 15-30 minutes/day Frequency: 3-4 times per week Seatbelt use: always Drive intox or 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
--- NOTE | 2023-09-17 15:12 | PT.INDS ---
PT Notes Visit Reasons: Covid-19, alcohol withdrawl, weakness Judson was seen for initial evaluation only, then deemed medically stable for return home. No further PT was provided. Please see initial evaluation for most recent functional status.
== END 2023-09-11 16:05 | disposition home or self-care (01) | DRG 178 ==
LOC: ER 13:46 → MS 16:04
PROVIDERS: Admitting Provider Family Medicine; Emergency Provider Registered Nurse Emergency; PCP Nurse Practitioner Adult Health; Visit Provider Family Medicine
DX: U07.1 COVID-19 (principal); D84.821 Immunodeficiency due to drugs; I10 Essential (primary) hypertension; N40.0 Benign prostatic hyperplasia without lower urinary tract symptoms; E78.41 Elevated Lipoprotein(a); R53.1 Weakness; M79.10 Myalgia, unspecified site; F10.10 Alcohol abuse, uncomplicated; M31.5 Giant cell arteritis with polymyalgia rheumatica; E09.9 Drug or chemical induced diabetes mellitus without complications; T38.0X5A Adverse effect of glucocorticoids and synthetic analogues, initial encounter; G62.9 Polyneuropathy, unspecified; E78.5 Hyperlipidemia, unspecified; Z80.42 Family history of malignant neoplasm of prostate; R26.89 Other abnormalities of gait and mobility; K21.9 Gastro-esophageal reflux disease without esophagitis; F41.9 Anxiety disorder, unspecified; B35.1 Tinea unguium
CPT/HCPCS: 00123; 36415; 80048; 80053; 83690; 87040; 87637; 97110; 97162; 97530; J1650; 71045; 81003; 81015; 83605; 83735; 85025; 99223; 99239; J0456; J7512

== ENCOUNTER 2023-09-13 11:11 | Emergency (ER) | payer MEDICARE, MEDICAID, SELFPAY ==
[2023-09-13] VITALS (24 sets, daily range): BP systolic 135–157; BP diastolic 58–71; PULSE 58–78; RESP 10–24; TEMP 36.8; O2SAT 93–98
--- NOTE | 2023-09-13 11:46 | ED.GENADUL_ITS ---
Discharge Plan Discharge Details Chief Complaint: Abd Prob Primary Care Provider: Yesy Nagy ED Provider: Maykel Oliva Home Meds and New Rx's Prescriptions: No Action tamsulosin [Flomax] 0.4 mg capsule 0.8 mg PO DAILY Qty: 180 3RF Hold Instructions: Restart the day following the last dose of paxlovid. Rx Instructions: Enlarged prostate; dose increase 03/29/2023 vitamin B complex [B Complex-Vitamin B12] Tablet 1 tab PO DAILY aspirin 325 mg tablet 325 mg PO DAILY Hold Instructions: Changed by Provider (DME) blood-glucose meter Kit See Rx Instructions .Route Qty: 1 0RF Rx Instructions: ONE TOUCH METER As directed to check blood glucose daily. No insulin. DX:E11.9 to maintain Hba1c <7% (DME) blood sugar diagnostic Strip See Rx Instructions .Route Qty: 100 3RF Rx Instructions: One touch test strips As directed to check blood glucose daily. no insulin. DX:E11.9 to maintain Hba1c <7% (DME) lancets Misc See Rx Instructions .Route Qty: 100 3RF Rx Instructions: As directed E11.9 for daily monitoring for A1C <=7% One touch lancets calcium carbonate 600 mg calcium (1,500 mg) tablet 600 mg PO BID cholecalciferol (vitamin D3) 25 mcg (1,000 unit) capsule 25 mcg PO DAILY amlodipine 5 mg tablet 5 mg PO DAILY Qty: 90 3RF prednisone 1 mg tablet See Rx Instructions .ROUTE .COMPLEX Patient Comments: TAKE 9 TABLETS BY MOUTH ONCE DAILY FOR 7 DAYS, THEN 8 FOR 7 DAYS, THEN 7 FOR 7 DAYS, THEN 6 FOR 14 DAYS, THEN 5 FOR 14 DAYS, THEN 4 FOR 14, Rx Instructions: TAKE 9 TABLETS BY MOUTH ONCE DAILY FOR 7 DAYS, THEN 8 FOR 7 DAYS, THEN 7 FOR 7 DAYS, THEN 6 FOR 14 DAYS, THEN 5 FOR 14 DAYS, THEN 4 FOR 14, Paxlovid 300 mg (150 mg x 2)-100 mg Tablets,Dose Pack See Rx Instructions .ROUTE .COMPLEX Qty: 30 0RF Rx Instructions: Take the evening dose tonight, then take for 3 days. He had 1 1/2 days of medication while hospitalized. HPI General Date/Time Provider Initiated Documentation: 09/13/23 11:46 . HPI Narrative: Patient presents emergency department complaining of left lower quad abdominal pain. States the pain started yesterday he states that he has been treated for COVID-19 infection and he is unvaccinated. Denies any shortness of breath but reports pain in the left lower quadrant. Reports he has been taking Paxlovid and tomorrow is his last dose. Related Data Home Medications Medication Instructions Recorded Confirmed vitamin B complex (B 1 tab PO DAILY 05/06/21 09/13/23 Complex-Vitamin B12 tablet) calcium carbonate 600 mg calcium 600 mg PO BID 09/20/22 09/13/23 (1,500 mg) tablet cholecalciferol (vitamin D3) 25 25 mcg PO DAILY 09/20/22 09/13/23 mcg (1,000 unit) capsule amlodipine 5 mg tablet 5 mg PO DAILY #90 tabs 01/22/23 09/13/23 aspirin 325 mg tablet 325 mg PO DAILY 02/13/23 09/13/23 tamsulosin 0.4 mg capsule (Flomax) 0.8 mg (2 x 0.4 mg) PO DAILY #180 03/29/23 09/10/23 tab-caps blood sugar diagnostic #100 ea 07/25/23 09/10/23 blood-glucose meter #1 ea 07/25/23 09/10/23 lancets #100 ea 07/25/23 09/10/23 prednisone 1 mg tablet See Rx Instructions .Route .COMPLEX 09/10/23 09/13/23 nirmatrelvir 300 mg (150 mg See Rx Instructions .Route 09/11/23 09/13/23 x2)-ritonavir 100 mg tablet,dose .COMPLEX #30 dose pk pack (Paxlovid) Previous Rx's Medication Instructions Recorded amlodipine 5 mg tablet 5 mg PO DAILY #90 tabs 01/22/23 tamsulosin 0.4 mg capsule (Flomax) 0.8 mg (2 x 0.4 mg) PO DAILY #180 03/29/23 tab-caps blood sugar diagnostic #100 ea 07/25/23 blood-glucose meter #1 ea 07/25/23 lancets #100 ea 07/25/23 nirmatrelvir 300 mg (150 mg See Rx Instructions .Route 09/11/23 x2)-ritonavir 100 mg tablet,dose .COMPLEX #30 dose pk pack (Paxlovid) Allergies Allergy/AdvReac Type Severity Reaction Status Date / Time amoxicillin [From Augmentin] AdvReac Intermediate vomiting, Verified 09/13/23 11:30 GI Upset atenolol AdvReac Intermediate off Verified 09/13/23 11:30 balance, dizzy clavulanic acid AdvReac Intermediate vomiting, Verified 09/13/23 11:30 [From Augmentin] GI Upset General Stated Complaint: Abd Prob ASIM: 3 Review of Systems Narrative: Review of Systems: Constitutional: No fevers, chills, sweats Eye: No recent visual problems ENT: No ear pain, nasal congestion, sore throat Respiratory: No shortness of breath, cough Cardiovascular: No Chest pain, palpitations, syncope Gastrointestinal: No nausea, vomiting, diarrhea Genitourinary: No hematuria Atul/Lymph: Negative for bruising tendency, swollen lymph glands Endocrine: Negative for excessive thirst, excessive hunger Musculoskeletal: No back pain, neck pain, joint pain, muscle pain, decreased range of motion Integumentary: No rash, pruritus, abrasions Neurologic: Alert & oriented X 4 Psychiatric: No anxiety, depression PFSH All Active Problems Weakness (Acute) COVID-19 (Acute) Peripheral neuropathy (Chronic 05/07/18) EtOH related; [facility] [place] Neuro 2017 & 2022 Impaired fasting glucose (Chronic 05/07/18) Monitor annual A1Cs; +fam hx DMT2 Hypertension (Chronic 05/07/18) Goal 135-145 (lower & he feels poor)--didn't tolerate Lisinopril Benign prostatic hyperplasia (Chronic 05/13/18) RX Flomax History of alcohol abuse (Chronic 05/07/18) Family history of prostate cancer in father (Chronic) Also PGF Hyperlipidemia (Chronic ~07/2021) Recommend statin 07/2021; Eladia Read obtained lipoprotein a, elevated--> cardiology recommends consider statin 01/2022 Elevated lipoprotein A level (Acute ~12/2021) PMR (polymyalgia rheumatica) (Acute ~04/2022) Abnormal gait (Acute ~06/2022) Peripheral neuropathy + vestibular ([facility] [place] Neuro 01/2023) On prednisone therapy (Acute ~04/2022) Anemia (Chronic ~08/2022) GCA (giant cell arteritis) (Acute ~11/2022) [facility] [place] Endo--RX Actremra 01/2023 Steroid-induced diabetes (Acute ~09/2022) Immunosuppressed status (Acute) LT prednisone for GCA Onychomycosis (Acute) Nail dystrophy (Acute) Medical History Candidal paronychia Elevated serum creatinine Left scapholunate ligament tear Fracture of distal end of left radius (10/26/22) Immunization refused (~02/2022) 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 Seborrheic dermatitis of scalp Edema of lower extremity (05/07/18) Occurred x1, RX Furosemide and never reoccurred even off Furosemide Anxiety (05/07/18) GERD (gastroesophageal reflux disease) (05/07/18) Hepatomegaly (05/07/18) Resolved off EtOH Surgical History Tonsillectomy Appendectomy Family History Father , 73yo from metastatic prostate cancer Essential hypertension Heart disease Myocardial infarction Neoplasm Prostate Mother , early 70s diabetes complications Diabetes Paternal Grandfather , prostate cancer Neoplasm Prostate Social History Smoking/Tobacco Use Status: Former Tobacco Use Quit Date: 11/26/71 Smoking risk assessment performed?: Yes Alcohol Intake: current Alcohol Intake frequency: a few times a week Alcohol type: beer Drug use: Occasionally Substance use type: marijuana Household members: none Housing: house Number of Children: 3 Communication Needs: Corrective Lenses 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 Current gender identity: male What is your relationship status?: Panel score (0-1 are the most socially isolated patients): 0 What type of physical activity do you participate in: walking Duration: 15-30 minutes/day Frequency: 3-4 times per week Seatbelt use: always Drive intox or 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 local bulk driver: No Working smoke detector in home: Yes Fire extinguisher in home: Yes Carbon monox detector in home: Yes Do you feel safe at home: Yes Do you feel safe in your relationship?: Yes Exam Narrative Exam Narrative: Exam; vitals signs as reported above normal Constitutional; In no acute distress, afebrile General: cooperative, healthy appearing, comfortable and no acute distress HEENT: Head: normal to inspection, no palpable skull fracture and normocephalic atraumatic Eyes: : appearance normal, both eyes and all related structures EOM intact bilaterally Pupils: PERRL : conjunctiva normal Direct ophthalmoscopy: normal light reflex, normal conjunctiva, normal visual acuity Ears: Normal TM, normal external canal Nose: normal no rhinorreha Neck no JVD, supple non tender Neck: normal visual inspection, full ROM and no lymphadenopathy Chest: normal inspection of the chest Respiratory : normal respiratory effort and able to speak in complete sentences no wheezing no rales Cardio Rate: regular rate, rhythm: regular rhythm normal heart sounds S1 and S2 no murmurs, gallops, or rubs GI : normal to inspection, normal bowel sounds, soft, non tender, non distended, no organomegaly Back/Spine/ no CVA tenderness Thoracic/Lumbar Spine: no tenderness or deformities Skin no rashes or lesions Neuro: patient alert oriented x 4 and no meningeal signs, Cranial Nerves: CN's II-XI intact bilaterally, Cognition: normal cognition, Speech: speech normal, Gait: normal gait, Depp tendon reflexes normal 2+ muscle strength 5/5 bilaterally Extremities, no edema, full range of motion, normal strength : normal Rectal: Course Vital Signs Vital signs: Vital Signs Temperature 36.8 C 09/13/23 11:26 Pulse 65 09/13/23 11:26 Respiratory Rate 18 09/13/23 11:26 Blood Pressure 139/71 09/13/23 11:26 Pulse Oximetry 96 09/13/23 11:26 Temperature 36.8 C 09/13/23 11:26 Temperature Source Oral 09/13/23 11:26 Pulse 65 09/13/23 11:26 Respiratory Rate 18 09/13/23 11:26 Respiratory Effort Normal, Non-Labored 09/13/23 11:30 Blood Pressure 139/71 09/13/23 11:26 Blood Pressure Position Sitting 09/13/23 11:26 Pulse Oximetry 96 09/13/23 11:26 Oxygen Delivery Method Room Air 09/13/23 11:26 Oxygen Flow Rate 0 09/13/23 11:26 PAWSS Have you Been Recently Intoxicated or Drunk Within the Last 30 days?: No Have you Ever Experienced Previous Episodes of Alcohol Withdrawal?: No Have you ever Experienced Withdrawal Seizures?: No Have you ever Experienced Delirium Tremens(DT)s?: No Have you ever undergone Alcohol Rehabilitation Treatment (i.e, inpt ot outpatient treatment programs)?: No Have you ever Experienced Blackouts?: No Have you ever Combined Alcohol with other Downers within the last 90 days?: No Have you ever Combined Alcohol with any other Substance of Abuse during the last 90 days?: No Positive Blood Alcohol level on Presentation? [PCS.BAL]: No Evidence of Increased Autonomic Activity (i.e. HR>120, tremor, sweating, agitation, nausea)?: No Result: 0
--- NOTE | 2023-09-13 11:51 | DI.CT_ITS ---
Exam(s) CT ABDOMEN PELVIS W EXAM: CT ABDOMEN PELVIS W CLINICAL HISTORY: LLQ abdominal pain TECHNIQUE: Imaging Protocol: Axial computed tomography images with coronal and sagittal reformatted images were created and reviewed CONTRAST MATERIAL: Intravenous: Omnipaque 350 Contrast volume:100 mL Oral: No COMPARISON: CT,NM,TMT NM MPI REST STRESS GRP from 10/24/2022 CR XR PORTABLE CHEST AP from 09/10/2023 FINDINGS: ABDOMEN: Lung Bases: Normal where visualized. Liver: Normal density. No measurable mass. Portal, Superior Mesenteric, and Splenic Veins: Unremarkable. Gallbladder and Biliary Tract: No radiodense calculus or dilation. Pancreas: Normal density, no abnormal calcifications or inflammatory process. Spleen: Normal. Adrenals: No masses seen. Kidneys: Normal size, contour and axis. No radiodense stones or obstructive uropathy. There is a simp le right renal cysts. No follow-up is recommended. There is a circum aortic left renal vein. Abdominal Aorta: Abdominal portion non-dilated. Atherosclerosis. Bowel: There is diverticulosis but no evidence of acute diverticulitis. There is no evidence of lashae l wall thickening or obstruction. There is no evidence of appendicitis. Peritoneal Cavity: No ascites, collection or mesenteric inflammatory response. No free air. Lymph Nodes: Within normal limits. Bones: Within normal limits for the patient's age. Soft Tissues: Small fat containing umbilical hernia. Small fat containing inguinal hernias. PELVIS: Bladder: Symmetric distention, no gross wall thickening. Reproductive Organs: Unremarkable as visualized. Lymph Nodes: Within normal limits. Bones: Within normal limits for the patient's age. IMPRESSION: 1. No acute abdominal or pelvic process. 2. Colonic diverticulosis without evidence of acute diverticulitis. 3. Findings were discussed with the emergency department at 2:27 p.m. on 09/13/2023. RADIATION DOSE DELIVERED: Total DLP DATA REPOSITORY: All CT scans at this facility are submitted to the National Radiology Data Registry (NRDR) Dose Index Registry (DIR) with the [employer] ([employer]). RADIATION OPTIMIZATION: All CT scans at this facility use at least one of these dose optimization te chniques: automated exposure control; mA and/or kV adjustment per patient size (includes targeted exa ms where dose is matched to clinical indication); or iterative reconstruction.
[2023-09-13] MEDS: Normal Saline 1,000 ML 1000 ML IV (12:04)
[2023-09-13 12:08] LABS: Abs Immature Grans 0.03 10^3/uL (0.0-0.06); Absolute Basophil Count 0.01 10^3/uL (0.0-0.2); Absolute Monocyte Count 0.55 10^3/uL (0.1-0.8); Absolute Neutrophil Count 5.21 10^3/uL (1.2-6.7); Basophils % 0.1; HCT 40.2 % (40.0-50.0); Immature Grans % 0.4; Lymphocytes % 18.3; MCH 32.5 pg (27.0-33.0); MCHC 34.8 % (32.0-36.0); MCV 93 fL (80-95); MPV 9.4 fL (8.0-11.0); Monocytes % 7.7; Neutrophils % 73.5; Platelet Count 218 10^3/uL (130-400); RBC 4.31 10^6/uL (4.36-5.78); RDW 12.9 % (11.8-14.1); RDW-SD 44.5 fL
[2023-09-13 12:32] LABS: Lipase 73 U/L (16-77)
[2023-09-13 12:35] LABS: ALT 29 U/L (16-63); AST 29 U/L (15-37); Albumin 3.5 g/dL (3.4-5.0); Alkaline Phosphatase 63 U/L (46-116); Anion Gap 8.5 mmol/L (3-11); BUN 18 mg/dL (7-18); Bilirubin, Total 0.5 mg/dL (0.2-1.0); CO2 27.5 mmol/L (21.0-32.0); CREATININE 1.3 mg/dL (0.70-1.30); Calcium 9.5 mg/dL (8.5-10.1); Chloride 97 mmol/L (98-107); Estimated GFR 57.65 (mL/min/1.73m2); Glucose 147 mg/dL (74-106); Potassium 4.1 mmol/L (3.5-5.1); Sodium 133 mmol/L (136-145); Total Protein 7.3 g/dL (6.4-8.2)
[2023-09-13] MEDS: Omnipaque 350 MG/ML 100 ML BTL IJ (13:34)
[2023-09-13] MEDS: Normal Saline - Diluent 50 ML VIAL IJ (13:36)
== END 2023-09-13 15:23 | disposition home or self-care (01) ==
PROVIDERS: Emergency Provider Emergency Medicine Emergency Medical Services; PCP Nurse Practitioner Adult Health
DX: R10.32 Left lower quadrant pain; Z28.310 Unvaccinated for COVID-19; U07.1 COVID-19
CPT/HCPCS: 36415; 80053; 83690; 96360; 99285; 74177; 85025; 99284; J3490

== ENCOUNTER 2023-10-06 09:52 | Emergency (ER) | payer MEDICARE, MEDICAID, SELFPAY ==
[2023-10-06 09:54] VITALS: BP 154/72; PULSE 76; RESP 15; TEMP 37.1; O2SAT 97
--- NOTE | 2023-10-06 10:14 | ED.GENADUL_ITS ---
Discharge Plan Disposition Patient Disposition: Home Discharge Details Clinical Impression: External nasal lesion Primary Care Provider: Yesy Nagy ED Provider: Blake Fried Home Meds and New Rx's Prescriptions: Continued tamsulosin [Flomax] 0.4 mg capsule 0.8 mg PO DAILY Qty: 180 3RF Hold Instructions: Restart the day following the last dose of paxlovid. Rx Instructions: Enlarged prostate; dose increase 03/29/2023 vitamin B complex [B Complex-Vitamin B12] Tablet 1 tab PO DAILY aspirin 325 mg tablet 325 mg PO DAILY Hold Instructions: Changed by Provider calcium carbonate 600 mg calcium (1,500 mg) tablet 600 mg PO BID cholecalciferol (vitamin D3) 25 mcg (1,000 unit) capsule 25 mcg PO DAILY amlodipine 5 mg tablet 5 mg PO DAILY Qty: 90 3RF prednisone 1 mg tablet See Rx Instructions .ROUTE .COMPLEX Patient Comments: TAKE 9 TABLETS BY MOUTH ONCE DAILY FOR 7 DAYS, THEN 8 FOR 7 DAYS, THEN 7 FOR 7 DAYS, THEN 6 FOR 14 DAYS, THEN 5 FOR 14 DAYS, THEN 4 FOR 14, Rx Instructions: TAKE 9 TABLETS BY MOUTH ONCE DAILY FOR 7 DAYS, THEN 8 FOR 7 DAYS, THEN 7 FOR 7 DAYS, THEN 6 FOR 14 DAYS, THEN 5 FOR 14 DAYS, THEN 4 FOR 14, No Action (DME) blood-glucose meter Kit See Rx Instructions .Route Qty: 1 0RF Rx Instructions: ONE TOUCH METER As directed to check blood glucose daily. No insulin. DX:E11.9 to maintain Hba1c <7% (DME) blood sugar diagnostic Strip See Rx Instructions .Route Qty: 100 3RF Rx Instructions: One touch test strips As directed to check blood glucose daily. no insulin. DX:E11.9 to maintain Hba1c <7% (DME) lancets Misc See Rx Instructions .Route Qty: 100 3RF Rx Instructions: As directed E11.9 for daily monitoring for A1C <=7% One touch lancets Discharge Instructions Additional Instructions: At this time we do not see any emergent concern for your noted skin lesions on your nose. If the start looking infected, you have rapid change or significant worsening you should return to the emergency department for reassessment Otherwise we have placed a referral for you to have further testing of these areas due to the persistent nature of your lesions. Referrals: Ricki Ortega DO [OSTEOPATHIC DOCTOR] - (Please call the office on Sunday afternoon for arrangement of follow-up appointment) Medical Decision Making Patient presenting to the emergency department for nasal lesions for the past 2 months. Patient reports previously he had significant amount of sun exposure and 2 months ago noticed these nasal lesions. He states that occasionally they have drained what he believes is clear fluid but it has not been consistent enough to remember. He states some slight irritation to the areas but denies any significant pain or discomfort and denies all other symptoms. Physical exam shows 2 small mildly erythematous lesions to the nose. HEENT exam is otherwise noncontributory no lymphadenopathy is noted no other emergent findings are noted. Given nonhealing lesions present for 2 months with no significant resolution and history of significant sun exposure there is concern of possible early carcinoma. Due to this we will refer patient for appropriate testing. Otherwise at this time patient has no emergent findings that require treatment and findings are not consistent with cellulitis, folliculitis, or trauma. After discussion of diagnosis and plan of care patient has no further needs, questions, or concerns and states clear understanding to return to the emergency department for any worsening symptoms. This documentation was generated using [employer] dictation system, please disregard any oddities of phrase or misspellings. HPI General Mode of arrival: ambulatory . Date/Time Provider Initiated Documentation: 10/06/23 09:52 . Limitations to Documentation: no limitations . Information obtained by: patient and RN notes reviewed . History of Present Illness 72 year old M presents to the emergency department with the chief complaint of Nasal lesions, described as mild, Patient started experiencing this month(s) (2) and it has been constant. No relieving factors improve symptom(s), No exacerbating factors reported . Patient notes no other s ymptoms.. Patient did receive the following treatments prior to arrival, none Related Data Home Medications Medication Instructions Recorded Confirmed vitamin B complex (B 1 tab PO DAILY 05/06/21 10/06/23 Complex-Vitamin B12 tablet) calcium carbonate 600 mg calcium 600 mg PO BID 09/20/22 10/06/23 (1,500 mg) tablet cholecalciferol (vitamin D3) 25 25 mcg PO DAILY 09/20/22 10/06/23 mcg (1,000 unit) capsule amlodipine 5 mg tablet 5 mg PO DAILY #90 tabs 01/22/23 10/06/23 aspirin 325 mg tablet 325 mg PO DAILY 02/13/23 10/06/23 tamsulosin 0.4 mg capsule (Flomax) 0.8 mg (2 x 0.4 mg) PO DAILY #180 03/29/23 10/06/23 tab-caps blood sugar diagnostic #100 ea 07/25/23 10/06/23 blood-glucose meter #1 ea 07/25/23 10/06/23 lancets #100 ea 07/25/23 10/06/23 prednisone 1 mg tablet See Rx Instructions .Route .COMPLEX 09/10/23 10/06/23 Previous Rx's Medication Instructions Recorded amlodipine 5 mg tablet 5 mg PO DAILY #90 tabs 01/22/23 tamsulosin 0.4 mg capsule (Flomax) 0.8 mg (2 x 0.4 mg) PO DAILY #180 03/29/23 tab-caps blood sugar diagnostic #100 ea 07/25/23 blood-glucose meter #1 ea 07/25/23 lancets #100 ea 07/25/23 Allergies Allergy/AdvReac Type Severity Reaction Status Date / Time amoxicillin [From Augmentin] AdvReac Intermediate vomiting, Verified 10/06/23 09:57 GI Upset atenolol AdvReac Intermediate off Verified 10/06/23 09:57 balance, dizzy clavulanic acid AdvReac Intermediate vomiting, Verified 10/06/23 09:57 [From Augmentin] GI Upset General Stated Complaint: RashLesion ASIM: 4 Review of Systems Constitutional Constitutional: Denies chills, Denies fatigue, Denies fever(s), Denies headache(s) and Denies weight loss Eyes Eyes: Reports system reviewed and no additional complaints, except as documented ENT Ears, Nose, Mouth, and Throat: Reports as per HPI, Denies change in voice, Denies otalgia, Denies facial pain, Denies headache(s), Denies epistaxis, Denies mouth lesions, Denies mouth pain, Denies nasal congestion, Denies nasal discharge, Reports nose pain and Denies odynophagia Cardiovascular Cardiovascular: Denies chest pain and Denies dyspnea Respiratory Respiratory: Denies dyspnea Gastrointestinal Gastrointestinal: Denies odynophagia Integumentary/Breasts Skin/Breast: Reports as per HPI, Reports new lesions and Reports erythema Neurologic Neurologic: Denies headache(s) Endocrine Endocrine: Denies fatigue Hematologic/Lymphatic Hematologic/Lymphatic: Denies lymphadenopathy PFSH All Active Problems (Updated 10/06/23 @ 10:22 by Blake Fried NP) External nasal lesion (Acute) Diverticulosis (Acute) Weakness (Acute) COVID-19 (Acute) Peripheral neuropathy (Chronic 05/07/18) EtOH related; [facility] Neuro 2017 & 2022 Impaired fasting glucose (Chronic 05/07/18) Monitor annual A1Cs; +fam hx DMT2 Hypertension (Chronic 05/07/18) Goal 135-145 (lower & he feels poor)--didn't tolerate Lisinopril Benign prostatic hyperplasia (Chronic 05/13/18) RX Flomax History of alcohol abuse (Chronic 05/07/18) Family history of prostate cancer in father (Chronic) Also PGF Hyperlipidemia (Chronic ~07/2021) Recommend statin 07/2021; Hemodialysis Patient Care Specialist Reynaldo Read obtained lipoprotein a, elevated--> cardiology darshan mmends consider statin 01/2022 Elevated lipoprotein A level (Acute ~12/2021) PMR (polymyalgia rheumatica) (Acute ~04/2022) Abnormal gait (Acute ~06/2022) Peripheral neuropathy + vestibular ([facility] Neuro 01/2023) On prednisone therapy (Acute ~04/2022) Anemia (Chronic ~08/2022) GCA (giant cell arteritis) (Acute ~11/2022) [facility] Endo--RX Actremra 01/2023 Steroid-induced diabetes (Acute ~09/2022) Immunosuppressed status (Acute) LT prednisone for GCA Onychomycosis (Acute) Nail dystrophy (Acute) Medical History Candidal paronychia Elevated serum creatinine Left scapholunate ligament tear Fracture of distal end of left radius (10/26/22) Immunization refused (~02/2022) 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 Seborrheic dermatitis of scalp Edema of lower extremity (05/07/18) Occurred x1, RX Furosemide and never reoccurred even off Furosemide Anxiety (05/07/18) GERD (gastroesophageal reflux disease) (05/07/18) Hepatomegaly (05/07/18) Resolved off EtOH Surgical History Tonsillectomy Appendectomy Family History Father , 73yo from metastatic prostate cancer Essential hypertension Heart disease Myocardial infarction Neoplasm Prostate Mother , early 70s diabetes complications Diabetes Paternal Grandfather , prostate cancer Neoplasm Prostate Social History Smoking/Tobacco Use Status: Former Tobacco Use Quit Date: 11/26/71 Smoking risk assessment performed?: Yes Alcohol Intake: current Alcohol Intake frequency: a few times a week Alcohol type: beer Drug use: Occasionally Substance use type: marijuana Household members: none Housing: house Number of Children: 3 Communication Needs: Corrective Lenses 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 Current gender identity: male What is your relationship status?: Panel score (0-1 are the most socially isolated patients): 0 What type of physical activity do you participate in: walking Duration: 15-30 minutes/day Frequency: 3-4 times per week Seatbelt use: always Drive intox or 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 truck driver instructor: No Working smoke detector in home: Yes Fire extinguisher in home: Yes Carbon monox detector in home: Yes Do you feel safe at home: Yes Do you feel safe in your relationship?: Yes Exam Const General: cooperative, comfortable and no acute distress Orientation: alert and awake [facility] Head: normal to inspection, normocephalic and atraumatic Ears: hearing grossly normal bilaterally General nose exam: external nose abnormal other (Nasal lesions as noted in image below) Face and sinus: no erythema Mouth: oral mucosae normal, no drooling, no muffled voice and no trismus Throat: posterior oropharynx normal Neck Neck: normal visual inspection, full ROM, no lymphadenopathy, no meningeal signs, trachea midline and supple Resp Effort & Inspection: normal respiratory effort and able to speak in complete sentences Auscultation: clear to auscultation bilaterally Cardio Rate: regular rate Rhythm: regular rhythm Heart Sounds: S1 normal, S2 normal, normal S1 and S2, no click, no gallops, no murmurs and no rubs Skin General skin exam: dry skin (warm) Neuro General: patient alert, patient awake, patient oriented x3, gait normal and moves all extremities Cognition: normal cognition Speech: speech normal Course Vital Signs Vital signs: Vital Signs Temperature 37.1 C 10/06/23 09:54 Pulse 76 10/06/23 09:54 Respiratory Rate 15 10/06/23 09:54 Blood Pressure 154/72 H 10/06/23 09:54 Pulse Oximetry 97 10/06/23 09:54 Temperature 37.1 C 10/06/23 09:54 Temperature Source Temporal Artery Scan 10/06/23 09:54 Pulse 76 10/06/23 09:54 Respiratory Rate 15 10/06/23 09:54 Respiratory Effort Normal 10/06/23 09:56 Blood Pressure 154/72 H 10/06/23 09:54 Blood Pressure Position Sitting 10/06/23 09:54 Pulse Oximetry 97 10/06/23 09:54 Oxygen Delivery Method Room Air 10/06/23 09:54 Oxygen Flow Rate 0 10/06/23 09:54 Pain Level 0 10/06/23 09:54
--- NOTE | 2023-10-08 13:11 | NUR.NOTE ---
Accessed pt chart to print provider note for the referral that was faxed to Dr. Ortega, for nasal lesions [id number], not improving. to be seen next available appt. Nursing Note:
--- NOTE | 2023-10-09 12:05 | NUR.NOTE ---
Nursing Note: Patient called stating the office has not received a referral to Dr. Ortega's office. Write called care management and they will be sending the referral today.
== END 2023-10-06 10:37 | disposition home or self-care (01) ==
PROVIDERS: Emergency Provider Nurse Practitioner Family; PCP Nurse Practitioner Adult Health
DX: L98.9 Disorder of the skin and subcutaneous tissue, unspecified (principal)
CPT/HCPCS: 99281; 99282

== ENCOUNTER 2023-11-22 13:13 | Emergency (ER) | payer MEDICARE, MEDICAID, SELFPAY ==
[2023-11-22 13:19] VITALS: BP 146/65; PULSE 78; RESP 18; TEMP 37.1; O2SAT 97
--- NOTE | 2023-11-22 13:38 | W.ED.GENAD ---
Discharge Plan Disposition Patient Disposition: Home Condition: Stable Discharge Details Clinical Impression: Canker sore Primary Care Provider: Yesy Nagy ED Provider: Lolly Barrios Home Meds and New Rx's Prescriptions: Continued tamsulosin [Flomax] 0.4 mg capsule 0.8 mg PO DAILY Qty: 180 3RF Hold Instructions: Restart the day following the last dose of paxlovid. Rx Instructions: Enlarged prostate; dose increase 03/29/2023 vitamin B complex [B Complex-Vitamin B12] Tablet 1 tab PO DAILY aspirin 325 mg tablet 325 mg PO DAILY Hold Instructions: Changed by Provider (DME) blood-glucose meter Kit See Rx Instructions .Route Qty: 1 0RF Rx Instructions: ONE TOUCH METER As directed to check blood glucose daily. No insulin. DX:E11.9 to maintain Hba1c <7% (DME) blood sugar diagnostic Strip See Rx Instructions .Route Qty: 100 3RF Rx Instructions: One touch test strips As directed to check blood glucose daily. no insulin. DX:E11.9 to maintain Hba1c <7% (DME) lancets Misc See Rx Instructions .Route Qty: 100 3RF Rx Instructions: As directed E11.9 for daily monitoring for A1C <=7% One touch lancets calcium carbonate 600 mg calcium (1,500 mg) tablet 600 mg PO BID cholecalciferol (vitamin D3) 25 mcg (1,000 unit) capsule 25 mcg PO DAILY amlodipine 5 mg tablet 5 mg PO DAILY Qty: 90 3RF prednisone 1 mg tablet See Rx Instructions .ROUTE .COMPLEX Patient Comments: TAKE 9 TABLETS BY MOUTH ONCE DAILY FOR 7 DAYS, THEN 8 FOR 7 DAYS, THEN 7 FOR 7 DAYS, THEN 6 FOR 14 DAYS, THEN 5 FOR 14 DAYS, THEN 4 FOR 14, Rx Instructions: TAKE 9 TABLETS BY MOUTH ONCE DAILY FOR 7 DAYS, THEN 8 FOR 7 DAYS, THEN 7 FOR 7 DAYS, THEN 6 FOR 14 DAYS, THEN 5 FOR 14 DAYS, THEN 4 FOR 14, Discharge Instructions Instructions: Canker Sores (ED) Additional Instructions: You have been placed on care management list to assist you in getting a follow-up appointment with [facility]. Otherwise please follow-up with your primary care provider in the next 3 to 5 days if no improvement with [id number] measures. You may try Orajel, Abreva or similar anticanker sore medication which she can get at the drugstore. Please return to the ER for any worsening swelling, bleeding if it does not heal over the next week or 2 or any further concerns any signs of infection such as increased redness, fever or chills. Referrals: [facility] [Outside] - 2 weeks (Dermatology, for lip lesion) DERMATOLOGY,[facility] [OTHER] - 2 weeks (Lip lesion) Yesy Nagy [employer] [Primary Care Provider] - 5 days Discharge Data Discharge Date/Time-TO BE ENTERED AT DEPARTURE: 11/22/23 13:55 Medical Decision Making 73-year-old male presents with a sore to his bottom lip which began began approximately 3 days ago. He does have some soreness noted and surrounding erythema, no neck pain no reports of fever chills no trismus uvula is midline. No evidence for abscess. He does have a history of having some gross removed on his nose which was he was seen at [facility] in the past. He has no other associated symptoms or concerns. Past medical history includes GERD, seborrheic dermatitis of scalp, hepatomegaly, Laura. He was unable to get in with a c architect regarding this due to need of a referral. Patient has no signs of angioedema or systemic infection, I do suspect herpes simplex lesion or canker sore. I will place patient on care management list to get him in with [facility] within the next couple of weeks if no improvement with [id number] measures. This text was generated using [employer] dictation system, please disregard any oddities of phrase or misspellings. HPI General Mode of arrival: ambulatory. Date/Time Provider Initiated Documentation: 11/22/23 13:24. Limitations to Documentation: no limitations. Information obtained by: patient, RN notes reviewed and old records reviewed. HPI Narrative: 73-year-old male presents with a sore to his bottom lip which began began approximately 3 days ago. He does have some soreness noted and surrounding erythema, no neck pain no reports of fever chills no trismus uvula is midline. No evidence for abscess. He does have a history of having some gross removed on his nose which was he was seen at [facility] in the past. He has no other associated symptoms or concerns. Past medical history includes GERD, seborrheic dermatitis of scalp, hepatomegaly, Laura. He was unable to get in with a c architect regarding this due to need of a referral. Related Data Home Medications Medication Instructions Recorded Confirmed vitamin B complex (B 1 tab PO DAILY 05/06/21 11/22/23 Complex-Vitamin B12 tablet) calcium carbonate 600 mg calcium 600 mg PO BID 09/20/22 11/22/23 (1,500 mg) tablet cholecalciferol (vitamin D3) 25 25 mcg PO DAILY 09/20/22 11/22/23 mcg (1,000 unit) capsule amlodipine 5 mg tablet 5 mg PO DAILY #90 tabs 01/22/23 11/22/23 aspirin 325 mg tablet 325 mg PO DAILY 02/13/23 11/22/23 tamsulosin 0.4 mg capsule (Flomax) 0.8 mg (2 x 0.4 mg) PO DAILY #180 03/29/23 11/22/23 tab-caps blood sugar diagnostic #100 ea 07/25/23 11/22/23 blood-glucose meter #1 ea 07/25/23 10/24/23 lancets #100 ea 07/25/23 10/24/23 prednisone 1 mg tablet See Rx Instructions .Route .COMPLEX 09/10/23 11/22/23 Previous Rx's Medication Instructions Recorded amlodipine 5 mg tablet 5 mg PO DAILY #90 tabs 01/22/23 tamsulosin 0.4 mg capsule (Flomax) 0.8 mg (2 x 0.4 mg) PO DAILY #180 03/29/23 tab-caps blood sugar diagnostic #100 ea 07/25/23 blood-glucose meter #1 ea 07/25/23 lancets #100 ea 07/25/23 Allergies Allergy/AdvReac Type Severity Reaction Status Date / Time amoxicillin [From Augmentin] AdvReac Intermediate vomiting, Verified 11/22/23 13:25 GI Upset atenolol AdvReac Intermediate off Verified 11/22/23 13:25 balance, dizzy clavulanic acid AdvReac Intermediate vomiting, Verified 11/22/23 13:25 [From Augmentin] GI Upset General Stated Complaint: DentalOral ASIM: 4 Review of Systems Constitutional Constitutional: Denies headache(s) ENT Ears, Nose, Mouth, and Throat: Reports as per HPI, Denies change in voice, Denies dental pain, Denies otalgia, Denies facial pain, Denies headache(s), Reports lip swelling, Denies mouth pain, Denies nasal congestion, Denies neck mass, Denies neck pain, Denies nose pain, Denies odynophagia, Denies sore throat, Denies throat swelling and Denies tongue swelling Gastrointestinal Gastrointestinal: Denies odynophagia Musculoskeletal Musculoskeletal: Denies neck pain Neurologic Neurologic: Denies headache(s) Allergic/Immunologic Allergic/Immunologic: Reports lip swelling, Denies throat swelling and Denies tongue swelling PFSH All Active Problems (Updated 11/22/23 @ 13:44 by Lolly Barrios NP) Canker sore (Acute) Peripheral neuropathy (Chronic 05/07/18) EtOH related; [facility] Neuro 2017 & 2022 Hypertension (Chronic 05/07/18) Goal 135-145 (lower & he feels poor)--didn't tolerate Lisinopril Benign prostatic hyperplasia (Chronic 05/13/18) RX Flomax History of alcohol abuse (Chronic 05/07/18) Family history of prostate cancer in father (Chronic) Also PGF Hyperlipidemia (Chronic ~07/2021) Recommend statin 07/2021; Rumper Reynaldo Read obtained lipoprotein a, elevated--> cardiology recommends consider statin 01/2022 Elevated lipoprotein A level (Acute ~12/2021) Declines statin PMR (polymyalgia rheumatica) (Acute ~04/2022) Abnormal gait (Acute ~06/2022) Peripheral neuropathy + vestibular ([facility] Neuro 01/2023) On prednisone therapy (Acute ~04/2022) Anemia (Chronic ~08/2022) GCA (giant cell arteritis) (Acute ~11/2022) [facility] Endo--RX Actremra 01/2023 Steroid-induced diabetes (Acute ~09/2022) Immunosuppressed status (Acute) LT prednisone for GCA Onychomycosis (Acute) Nail dystrophy (Acute) Medical History (Updated 11/22/23 @ 13:44 by Lolly Barrios NP) COVID-19 (~08/2023) Impaired fasting glucose (05/07/18) Monitor annual A1Cs; +fam hx DMT2 Candidal paronychia Elevated serum creatinine Left scapholunate ligament tear Fracture of distal end of left radius (10/26/22) Immunization refused (~02/2022) 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 Seborrheic dermatitis of scalp Edema of lower extremity (05/07/18) Occurred x1, RX Furosemide and never reoccurred even off Furosemide Anxiety (05/07/18) GERD (gastroesophageal reflux disease) (05/07/18) Hepatomegaly (05/07/18) Resolved off EtOH Surgical History Tonsillectomy Appendectomy Family History Father , 73yo from metastatic prostate cancer Essential hypertension Heart disease Myocardial infarction Neoplasm Prostate Mother , early 70s diabetes complications Diabetes Paternal Grandfather , prostate cancer Neoplasm Prostate Social History Smoking/Tobacco Use Status: Former Tobacco Use Quit Date: 11/26/71 Smoking risk assessment performed?: Yes Alcohol Intake: current Alcohol Intake frequency: a few times a week Alcohol type: beer Drug use: Occasionally Substance use type: marijuana Household members: none Housing: house Number of Children: 3 Communication Needs: Corrective Lenses 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 Current gender identity: male What is your relationship status?: Panel score (0-1 are the most socially isolated patients): 0 What type of physical activity do you participate in: walking Duration: 15-30 minutes/day Frequency: 3-4 times per week Seatbelt use: always Drive intox or 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 school bus driver/teacher assistant: No Working smoke detector in home: Yes Fire extinguisher in home: Yes Carbon monox detector in home: Yes Do you feel safe at home: Yes Do you feel safe in your relationship?: Yes Exam [facility] Head: normal to inspection General nose exam: external nose normal Nose image: 1. Erythemic area that is slightly tender with a central white lesion. Does appear to be similar to a cold sore or herpetic lesion. No drainage, was no surrounding induration or erythema. Face and sinus: normal facial exam and sinuses nontender Mouth: tongue normal, salivary ducts normal, oropharynx normal, no drooling, lip abnormal lower swelling and lesion (See diagram); without lacerations, breath no malodorous, No mouth trauma and no muffled voice Throat: posterior oropharynx normal Neck Neck: normal visual inspection and full ROM Lymphatic: no lymphadenopathy noted Course Vital Signs Vital signs: Vital Signs Temperature 37.1 C 11/22/23 13:19 Pulse 78 11/22/23 13:19 Respiratory Rate 18 11/22/23 13:19 Blood Pressure 146/65 H 11/22/23 13:19 Pulse Oximetry 97 11/22/23 13:19 Temperature 37.1 C 11/22/23 13:19 Temperature Source Temporal Artery Scan 11/22/23 13:19 Pulse 78 11/22/23 13:19 Respiratory Rate 18 11/22/23 13:19 Respiratory Effort Normal, Non-Labored 11/22/23 13:23 Blood Pressure 146/65 H 11/22/23 13:19 Blood Pressure Position Sitting 11/22/23 13:19 Pulse Oximetry 97 11/22/23 13:19 Pain Level 7 11/22/23 13:19
--- NOTE | 2023-11-22 14:04 | NUR.NOTE ---
Referral given to Care Management to [facility] for lip lesion to be seen within 1 month. Nursing Note:
== END 2023-11-22 13:55 | disposition home or self-care (01) ==
LOC: ER 14:02
PROVIDERS: Emergency Provider Registered Nurse Emergency; PCP Nurse Practitioner Adult Health
DX: K12.0 Recurrent oral aphthae (principal); I10 Essential (primary) hypertension; E78.5 Hyperlipidemia, unspecified; M35.3 Polymyalgia rheumatica; Z79.899 Other long term (current) drug therapy; Z87.891 Personal history of nicotine dependence
CPT/HCPCS: 99282

== ENCOUNTER → 2024-02-04 09:50 | Outpatient (BNVA) | payer MEDICARE, MEDICAID, SELFPAY | PROVIDERS: PCP Nurse Practitioner Adult Health; Referring Provider Nurse Practitioner Adult Health; Visit Provider Psychiatry & Neurology Neurology | DX: G60.9 Hereditary and idiopathic neuropathy, unspecified (principal); R26.9 Unspecified abnormalities of gait and mobility | CPT/HCPCS: 99215 ==

== ENCOUNTER 2024-06-19 02:25 | Outpatient (CLI) | payer MEDICARE, MEDICAID, SELFPAY ==
--- OUTSIDE RECORDS SUMMARY | 2024-06-19 02:35 | XMS_ITS | Encounter Summary ---
Author Organization [facility] Address [address] [place] [address] Care Team Providers Care Sales Floor Manager Name Role Phone Unknown, Provider Primary Care Provider [phone] Unknown, Provider Unavailable [phone] Encounter Details Date Type Department Care Team (Late st Contact Info) Description 02/06/2022 Lab Requisition [facility] Pathology & Laboratory Medicine - [address] [address] Outr Resulting Lab, Provider Social History Tobacco Use Types Packs/Day Years Used Date Smoking Tobacco: Never Assessed Sex and Gender Information Value Date Recorded Sex Assigned at Not on file Gender Identity Not on file Sexual Orientation Not on file documented as of this encounter Plan of Treatment Not on file documented as of this encounter Procedures Procedure Name Priority Date/Time Associated Diagnosis Comments PSA TOTAL, DIAGNOSTIC Routine 02/06/2022 10:34 EDT documented in this encounter Results * PSA TOTAL, DIAGNOSTIC (02/06/2022 10:34 EDT) PSA 1.6 0.0 - 6.5 ng/mL 02/06/2022 18:58 EDT [facility] Blood VENOUS BLOOD / Unknown 02/06/2022 10:34 EDT 02/06/2022 17:03 EDT Narrative [facility] - 02/06/2022 18:58 EDT NOTE: Serum PSA concentration should not be interpreted as absolute evidence for the presence or absence of malignant disease. Assayed on Siemens ADVIA BorderJumpaur XPT using chemiluminescent technology.??Values obtained by using different assay methods cannot be used interchangeably. Provider Outr Resulting Lab CHEMISTRY & BLOOD GAS ORDERABLES [facility] [address] [place] [address] documented in this encounter Visit Diagnoses Not on filedocumented in this encounter Care Teams Sales Floor Manager Relationship Specialty Start Date End Date Unknown, ProviderMD PCP - General 11/10/15 Unknown, ProviderMD 11/10/15 documented as of this encounter
--- OUTSIDE RECORDS SUMMARY | 2024-06-19 02:35 | XMS_ITS | Encounter Summary ---
Author Organization [facility] Address [facility] [place] [address] Care Team Providers Care Projection Printer Name Role Phone Yesy Nagy MALACHI Primary Care Provider Encounter Details Date Type Department Care Team (Late st Contact Info) Description 05/16/2023 [place] [phone] Ananya Payan DO [facility] [place] [address] Social History Tobacco Use Types Packs/Day Years Used Date Smoking Tobacco: Former Cigarettes Q uit: 06/09/1986 Smokeless Tobacco: Never Alcohol Use Standard Drinks/Week Comments Yes 0 (1 standard drink = 0.6 oz pur e alcohol) Sex and Gender Information Value Date Recorded Sex Assigned at Not on file Gender Identity Not on file Sexual Orientation Not on file documented as of this encounter Miscellaneous Notes * Telephone Encounter - Ananya Payan DO - 05/16/2023 3:16 PM EDT - case was discussed with his PCP on phone on Sunday - Reviewed labs with patient - inflammatory markers low. - pt bring treated for fungal infection on finger - will continue hold actemra - continue on prednisone 4 mg - follow up in person scheduled in May documented in this encounter Plan of Treatment Not on file documented as of this encounter Goals Goal Patient Goal Type Associated Problems Recent Progress Patient-Stated? Author BRYAN Self-Management Patient Facing Action Plan No Danica Taylor, [facility] Note: Judson Patel Jr. Is hoping to decrease his prednisone dosage and keep pain levels at a minimum. He is hoping that Actemra will be able to keep him walking since before prednisone he had a hard time standing up and walking around. documented as of this encounter Visit Diagnoses Not on filedocumented in this encounter Care Teams Projection Printer Relationship Specialty Start Date End Date Yesy Nagy APRN [address] [place] [address] PCP - General Geriatric Medicine 08/02/22 documented as of this encounter
--- OUTSIDE RECORDS SUMMARY | 2024-06-19 02:35 | XMS_ITS | Encounter Summary ---
Author Organization [facility] Address [address] [place] [address] Care Team Providers Care Land Inspector Name Role Phone Unknown, Provider Primary Care Provider [phone] Unknown, Provider Unavailable [phone] Encounter Details Date Type Department Care Team (Late st Contact Info) Description 01/04/2022 Lab Requisition [facility] Pathology & Laboratory Medicine - [address] [address] Outr Resulting Lab, Provider Social History Tobacco [...] Procedure Name Priority Date/Time Associated Diagnosis Comments HOMOCYSTEINE Routine 01/04/2022 7:52 EST documented in this encounter Results * HOMOCYSTEINE (01/04/2022 7:52 EST) Homocysteine 11.4 5.0 - 13.9 umol/L 01/06/2022 8:16 EST [facility] Blood VENOUS BLOOD / Unknown 01/04/2022 7:52 EST 01/04/2022 21:30 EST Narrative [facility] - 01/06/2022 8:16 EST Reference range may not apply to non-fasting samples. ??It is not recommended that EDTA plasma and serum from the same patient be used interchangeably. ??Serum concentrations have been observed to be up to 10% higher than EDTA plasma. Reference range may not apply to serum results. Provider Outr Resulting Lab CHEMISTRY & BLOOD GAS ORDERABLES [facility] [address] [place] [address] documented in this encounter Visit Diagnoses Not on filedocumented in this encounter Care Teams Land Inspector Relationship Specialty Start Date End Date Unknown, ProviderMD PCP - General 11/10/15 Unknown, ProviderMD 11/10/15 documented as of this encounter
--- OUTSIDE RECORDS SUMMARY | 2024-06-19 02:35 | XMS_ITS | Encounter Summary ---
[place] [address] Care Team Providers Care Fabric Awning Repairer Name Role Phone Yesy Nagy APRN Primary Care Provider [phone] Reason for Visit * Reason Comments Medication Management Encounter Details Date Type Department Care Team (Late st Contact Info) Description 05/11/2023 Specialty Pharmacy [place] [phone] Homa March RPH Social History Tobacco Use Types Packs/Day Years Used Date Smoking Tobacco: Former Cigarettes Q uit: 06/09/1986 Smokeless Tobacco: Never Alcohol Use Standard Drinks/Week Comments Yes 0 (1 standard drink = 0.6 oz pur e alcohol) Sex and Gender Information Value Date Recorded Sex Assigned at Not on file Gender Identity Not on file Sexual Orientation Not on file documented as of this encounter Progress Notes * Homa March RPH - 05/11/2023 8:19 AM EDT Clinical Management Plan: Discontinuation of Therapy Specialty Pharmacy Consultation; Homa March RPH Comprehensive Medication Management (CMM) Judson Patel Jr. [address] [facility] [address] Telephone Information: Work Phone Not on file. Is the patient transferring services to a different Specialty Pharmacy, discontinuing the medication, or modifying current Specialty services? Discontinuing Medication (Optional) If modifying Specialty services, patient unenrolls from: Medication: Actemra 162mg/0.9ml SOAJ Reason for discontinuation or transfer of services: Therapy discontinued Approximate date of discontinuation, modification, or transfer of services: 05/11/23 Patient's response to therapy: patient says due to worsening kidney function and fungal infection he wants to discontinue Actemra and will notify the provider Summary of services provided by [facility]: Initial clinical assessment, follow up clinical assessment(s), refill management, monthly care plan review, and 18/06 access to an on-call specialty pharmacist Summary of on-going needs: None at this time Referral for additional services (if applicable): n/a Is patient aware of referral? no Instructions provided to patient about discharge/transfer: yes - patient will contact provider Provider aware of discontinuation or transfer: Yes Patient understands no changes to current drug regimen were made at the appointment and that [facility] is[facility] recommendations (summary located at top of note) for provider review and follow up. Of note, if transferring to another specialty pharmacy, a copy of patient's medication profile was offered to accepting pharmacy. Homa March RPH 05/11/23 8:22 AM documented in this encounter Plan of Treatment Not on file documented as of this encounter Goals Goal Patient Goal Type Associated Problems Recent Progress Patient-Stated? Author DH Self-Management Patient Facing Action Plan No Danica Taylor [facility] Note: Judson Robe Patel Jr. Is hoping to decrease his prednisone dosage and keep pain levels at a minimum. He is hoping that Actemra will be able to keep him walking since before prednisone he had a hard time standing up and walking around. documented as of this encounter Visit Diagnoses Not on filedocumented in this encounter Care Teams Fabric Awning Repairer Relationship Specialty Start Date End Date Yesy Nagy APRN [address] [facility] [address] [place] [address] PCP - General Geriatric Medicine 08/02/22 documented as of this encounter
--- OUTSIDE RECORDS SUMMARY | 2024-06-19 02:35 | XMS_ITS | Encounter Summary ---
Author Organization [facility] Address [address] [place] [address] Care Team Providers Care Corporate Treasurer Name Role Phone Unknown, Provider Primary Care Provider [phone] Unknown, Provider Unavailable [phone] Encounter Details Date Type Department Care Team (Late st Contact Info) Description 12/02/2021 Lab Requisition [facility] Pathology & Laboratory Medicine - [address] [address] Outr Resulting Lab, Provider Social History Tobacco [...] Associated Diagnosis Comments PSA TOTAL, DIAGNOSTIC Routine 12/02/2021 7:48 EST documented in this encounter Results * PSA TOTAL, DIAGNOSTIC (12/02/2021 7:48 EST) PSA 1.5 0.0 - 6.5 ng/mL 12/02/2021 17:18 EST [facility] Blood VENOUS BLOOD / Unknown 12/02/2021 7:48 EST 12/02/2021 15:54 EST Narrative [facility] - 12/02/2021 17:18 EST NOTE: Serum PSA concentration should not be interpreted as absolute evidence for the presence or absence of malignant disease. Assayed on Siemens ADVIA Genesius Picturesaur XPT using chemiluminescent technology.??Values obtained by using different assay methods cannot be used interchangeably. Provider Outr Resulting Lab CHEMISTRY & BLOOD GAS ORDERABLES [facility] [address] [place] [address] documented in this encounter Visit Diagnoses Not on filedocumented in this encounter Care Teams Corporate Treasurer Relationship Specialty Start Date End Date Unknown, ProviderMD PCP - General 11/10/15 Unknown, ProviderMD 11/10/15 documented as of this encounter
--- OUTSIDE RECORDS SUMMARY | 2024-06-19 02:35 | XMS_ITS | Encounter Summary ---
Author Organization [facility] Address [address] [place] [address] Care Team Providers Care Improvement Specialist Name Role Phone Unknown, Provider Primary Care Provider [phone] Unknown, Provider Unavailable [phone] Encounter Details Date Type Department Care Team (Late st Contact Info) Description 05/14/2023 Lab Requisition [facility] Pathology & Laboratory Medicine - [facility] [address] [place] [address] Outr Resulting Lab, Provider Social History Tobacco [...] Procedure Name Priority Date/Time Associated Diagnosis Comments ZZFUNGUS CULTURE, BLOOD Routine 05/14/2023 12:20 EDT documented in this encounter Results * FUNGUS CULTURE, BLOOD (05/14/2023 12:20 EDT) Organism ID No fungi isolated 06/12/2023 7:46 EDT [facility] Blood VENOUS BLOOD / Unknown 05/14/2023 12:20 EDT 05/14/2023 17:19 EDT Provider Outr Resulting Lab MICROBIOLOGY - GENERAL ORDERABLES [facility] [address] [place] [address] documented in this encounter Visit Diagnoses Not on filedocumented in this encounter Care Teams Improvement Specialist Relationship Specialty Start Date End Date Unknown, Provider, PCP - General 11/10/15 Unknown, ProviderMD 11/10/15 documented as of this encounter
--- OUTSIDE RECORDS SUMMARY | 2024-06-19 02:35 | XMS_ITS | Encounter Summary ---
Author Organization [facility] Address [address] [place] [address] Care Team Providers Care Pants Cutter Name Role Phone Unknown, Provider Primary Care Provider [phone] Unknown, Provider Unavailable [phone] Encounter Details Date Type Department Care Team (Late st Contact Info) Description 08/18/2022 Lab Requisition [facility] Pathology & Laboratory Medicine - [address] [address] Outr Resulting Lab, Provider Social History Tobacco [...] Procedure Name Priority Date/Time Associated Diagnosis Comments HIV 1/2 ANTIGEN AND ANTIBODY, 4TH GENERATION Routine 08/18/2022 9:08 EDT documented in this encounter Results * HIV 1/2 ANTIGEN AND ANTIBODY, 4TH GENERATION (08/18/2022 9:08 EDT) HIV 1 and 2 Antibody/p24 Antigen, 4th Generation Negative Negative 08/21/2022 10:20 EDT [facility] Comment:If acute HIV-1 infec tion is suspected in a high risk patient, submit plasma specimen for HIV-1 RNA quantitation test. Blood VENOUS BLOOD / Unknown 08/18/2022 9:08 EDT 08/18/2022 18:19 EDT Narrative [facility] - 08/21/2022 10:20 EDT Fourth Generation assay performed on the Siemens Centaur XPT. Provider Outr Resulting Lab IMMUNOLOGY A ND SEROLOGY ORDERABLES [facility] [address] [place] [address] documented in this encounter Visit Diagnoses Not on filedocumented in this encounter Care Teams Pants Cutter Relationship Specialty Start Date End Date Unknown, ProviderMD PCP - General 11/10/15 Unknown, ProviderMD 11/10/15 documented as of this encounter
--- OUTSIDE RECORDS SUMMARY | 2024-06-19 02:35 | XMS_ITS | Encounter Summary ---
Author Organization [facility] Address [facility] [place] [address] Care Team Providers Care Booster Plant Operator Name Role Phone Yesy Nagy MALACHI Primary Care Provider [phone] Reason for Visit * Reason Onset Date Comments Medication Refill 04/28/2024 Encounter Details Date Type Department Care Team (Late st Contact Info) Description 04/28/2024 Refill [place] [address] Ananya Payan, [facility] [place] [address] GCA (giant cell arteritis); PMR (polymyalgia rheumatica) Social History Tobacco Use Types Packs/Day Years [...] encounter Miscellaneous Notes * Telephone Encounter - Landy Monson RN - 04/29/2024 9:56 AM EDT Visit with provider - Continue Prednisone 7.5 mg daily NAME OF MEDICATION AND DOSE: predniSONE (Deltasone) 2.5 mg tablet Take 3 tablets by mouth daily - dose and frequency as stated in medication list. Last refill not approved and said to contact the provider. Nurse will call patient-no answer. Voicemail full so could not leave a message to return my call.. * Telephone Encounter - Aleida Rodríguez - 04/28/2024 3:49 PM EDT NAME OF MEDICATION AND DOSE: predniSONE (Deltasone) 2.5 mg tablet Take 3 tablets by mouth daily - dose and frequency as stated in medication list. PHARMACY NAME:[id number] - [place], [place] - [address] [place] [address] PHARMACY PHONE: [phone] Would patient like script sent directly to pharmacy? (Yes or no) yes Would patient like to transportation maintenance supervisor paper script here at our office (Please put yes or no) no Would patient like paper script mailed to home address (Please put yes or no) no Patient is out of medication and would like it to be called in today if possible? Caller/Patient aware of 1-2 business day process. documented in this encounter Plan of Treatment Not on file documented as of this encounter Goals Goal Patient Goal Type Associated Problems Recent Progress Patient-Stated? Author DH Self-Management Patient Facing Action Plan No Danica Taylor, [facility] Note: Judson Robe Patel Jr. Is hoping to decrease his prednisone dosage and keep pain levels at a minimum. He is hoping that Actemra will be able to keep him walking since before prednisone he had a hard time standing up and walking around. documented as of this encounter Visit Diagnoses Diagnosis GCA (giant cell arteritis) Giant cell arteritis PMR (polymyalgia rheumatica) Polymyalgia rheumatica documented in this encounter Care Teams Booster Plant Operator Relationship Specialty Start Date End Date Yesy Nagy APRN [address] [place] [address] PCP - General Geriatric Medicine 08/02/22 documented as of this encounter
--- OUTSIDE RECORDS SUMMARY | 2024-06-19 02:35 | XMS_ITS | Encounter Summary ---
Author Organization [facility] [place] [address] Care Team Providers Care Bead Maker Name Role Phone MikeYesy Swenson MALACHI Primary Care Provider [phone] Reason for Visit * Reason Onset Date Comments Other 05/10/2023 Encounter Details Date Type Department Care Team (Late st Contact Info) Description 05/10/2023 Telephone [place] [phone] Dayna Paez RN Other Social History Tobacco Use Types Packs/Day Years [...] encounter Miscellaneous Notes * Telephone Encounter - Dayna Paez RN - 05/10/2023 12:42 PM EDT Judson calls with question about his medication. RTC and LM to RTC to nurse. No RTC after 5 days, will close encounter for now. documented in this encounter Plan of Treatment Not on file documented as of this encounter Goals Goal Patient Goal Type Associated Problems Recent Progress Patient-Stated? Author BRYAN Self-Management Patient Facing Action Plan No Danica Taylor, [facility] Note: Judson Patel Jr. Is hoping to decrease his prednisone dosage and keep pain levels at a minimum. He is hoping that Actemra will be able to keep him walking since before prednisone he had a hard time standing up and walking around. documented as of this encounter Visit Diagnoses Not on filedocumented in this encounter Care Teams Bead Maker Relationship Specialty Start Date End Date Yesy Nagy APRN [address] [place] [address] PCP - General Geriatric Medicine 08/02/22 documented as of this encounter
--- OUTSIDE RECORDS SUMMARY | 2024-06-19 02:35 | XMS_ITS | Referral Summary ---
Author Organization [facility] Address [address] [place] [address] Care Team Providers Care Keno Writer/Runner Name Role Phone Unknown, Provider Primary Care Provider [phone] Unknown, Provider Unavailable [phone] Social History Tobacco Use Types Packs/Day Years Used Date Smoking Tobacco: Never Assessed Sex and Gender Information Value Date Recorded Sex Assigned at Not on file Gender Identity Not on file Sexual Orientation Not on file Plan of Treatment Not on file Procedures Procedure Name Priority Date/Time Associated Diagnosis Comments HEPATITIS C AB W REFLEX TO HCV RNA BY PCR Routine 08/18/2022 9:08 EDT from Last 3 Months or Most Recently Relevant to Health Maintenance Results * HEPATITIS C AB W REFLEX TO HCV RNA BY PCR (08/18/2022 9:08 EDT) Hep C Antibody Negative Negative 08/21/2022 10:26 EDT [facility] Blood VENOUS BLOOD / Unknown 08/18/2022 9:08 EDT 08/18/2022 18:19 EDT Provider Outr Resulting Lab CHEMISTRY & BLOOD GAS ORDERABLES [facility] [address] [place] [address] from Last 3 Months or Most Recently Relevant to Health Maintenance Care Teams Keno Writer/Runner Relationship Specialty Start Date End Date Unknown, ProviderMD PCP - General 11/10/15 Unknown, ProviderMD 11/10/15
--- OUTSIDE RECORDS SUMMARY | 2024-06-19 02:35 | XMS_ITS | Encounter Summary ---
Author Organization [facility] [place] [address] Care Team Providers Care Java Programming Professor Name Role Phone Yesy Nagy APRN Primary Care Provider Encounter Details Date Type Department Care Team (Late st Contact Info) Description 04/30/2024 Telephone [place] [phone] Brittni Hamilton Social History Tobacco Use Types Packs/Day Years [...] encounter Miscellaneous Notes * Telephone Encounter - Brittni Hamilton - 04/30/2024 10:22 AM EDT Tried to call pt to let them know Dr. Payan ok'd a TH visit for today - was full documented in this encounter Plan of Treatment Not on file documented as of this encounter Goals Goal Patient Goal Type Associated Problems Recent Progress Patient-Stated? Author BRYAN Self-Management Patient Facing Action Plan No Danica Taylor, [facility] Note: Judson Patel Jr. Is hoping to decrease his prednisone dosage and keep pain levels at a minimum. He is hoping that Actemra will be able to keep him walking since before prednisone he had a hard time standing up and walking around. documented as of this encounter Visit Diagnoses Not on filedocumented in this encounter Care Teams Java Programming Professor Relationship Specialty Start Date End Date Yesy Nagy APRN [address] [place] [address] PCP - General Geriatric Medicine 08/02/22 documented as of this encounter
--- OUTSIDE RECORDS SUMMARY | 2024-06-19 02:35 | XMS_ITS | Encounter Summary ---
Author Organization [facility] Address [facility] [place] [address] Care Team Providers Care C.O.D. 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 Social History Tobacco Use Types Packs/Day Years Used Date Smoking Tobacco: Former Cigarettes Q uit: 06/09/1986 Smokeless Tobacco: Never Alcohol Use Standard Drinks/Week Comments Yes 0 (1 standard drink = 0.6 oz pur e alcohol) Sex and Gender Information Value Date Recorded Sex Assigned at Not on file Gender Identity Not on file Sexual Orientation Not on file documented as of this encounter Last Filed Vital Signs Vital Sign Reading Time Taken Comments Blood Pressure 127/56 05/31/2023 9:10 AM EDT Pulse 60 05/31/2023 9:10 AM EDT Temperature 36.2 ??C (97.2 ??F) 05/31/2023 9:10 AM ED T Respiratory Rate 16 05/31/2023 9:10 AM EDT Oxygen Saturation 100% 05/31/2023 9:10 AM EDT Inhaled Oxygen Concentration - - Weight 72.6 kg (160 lb) 05/31/2023 9:10 AM EDT Height - - Body Mass Index 25.06 09/14/2022 9:59 AM EDT documented in this encounter Progress Notes * Ananya Payan DO - 05/31/2023 9:30 AM EDT Rheumatology Outpatient Follow Up Note PCP: MALACHI Vinson Jr. is a 72 y.o. male who we are seeing for the continuing management of GCA. Rheum History: #GCA -Symptoms began in April 2022 with generalized body pain with intermittent headaches, unsteady gait.Initially evaluated on prednisone 25 mg and had sed rate of 60, CRP 15 August 2022. Given elevated inflammatory markers, age >50 and headache concern of GCA. Unfortunately been on prednisone for over 2 months therefore a biopsy would likely be negative. -Started prednisone 60mg with improvement of symptoms and inflammatory markers. - pt declined tocilizumab -Due to symptoms of disequilibrium he wants referred to neurology, MRI of the brain was recommended. Patient declined MRI. -Seen 09/14/2022, doing well continue to taper down on prednisone without recurrence of headache inflammatory markers remain low -Labs 10/20/2022, ESR 33, CRP 0.14. - Continue prednisone taper, 12.5 mg x 2 weeks then 10 mg x 2 weeks. Then taper down by 1 mg/month. - 01/18: elevated CRP- 2.22, ESR on 8mg prednisone, started actemra, increase prednisone to 10mg. -02/06: intermittent TORRES. Televist, prednisone to 30 mg x 1 week then 25 mg x 1 week then 20 mg x 1 week then 15 mg x 1 week then 12.5 mg x 1 week, then 10 mg x 1 week -02/07: ESR: 11 04/09/23: ESR 5, CRP 0.05, CMP WNL - Finger infectionX2- fungal- tx with ABX. - Stopped Actemra, currently on Prednisone 4mg daily #vison changes- yellow discoloration - Following with outside eye clinic - resolved. Interval History: Patient reports finger fungal infection has healed, he saw dermatology, on Diflucan every other dayfor 21 days. -Has been off Actemra since March due to recurrent infections. Would prefer not to resume this medication. -Reports occasional intermittent headache lasting less than 5 minutes. No jaw claudication with chewing, visual change persistent headaches, temporal artery pain. -No joint pain, swelling morning stiffness. Has been on 4 mg of prednisone for the last month. -Still reports unsteady gait, no falls. Has seen neurology. Work-up for Parkinson was negative. MRIwas negative. ROS (positives in bold): Gen: no fevers, no chills, no night sweats Pulm: no SOB CV: no CP Abd: no abd pain, no nausea, no vomiting, no diarrhea MSK: see HPI Meds and Allergies: Reviewed in eDH Physical exam: BP 127/56 (BP Location (NBP): Left arm, Patient Position: Sitting, BP Cuff Sizes: Adult (25-34 cm)) Pulse 60 Temp 36.2 ??C (97.2 ??F) (Temporal) Resp 16 Wt 72.6 kg (160 lb) SpO2 100% BMI 25.06 kg/m?? Gen: well appearing, alert and oriented x 3, nad HEENT: NCAT, EOMI, moist mucous membranes, no oral ulcers, normal sclerae, no carotid bruits. 2+ temporal arteries, nontender with palpation Heart: regular rate, no murmurs, rubs or gallops Lungs: clear to auscultation b/l Abd: soft, +bs, NT/ND Skin: warm and dry, no rheumatologic rashes Nails: no nail pitting, Joints: Shoulders: FROM, non-tender to palpation Elbows:FROM Wrists: FROM, no swelling, non-tender Hands: No synovitis, no MCP compression tenderness, full claw and fist, Jill nodes Hips: FROM, no tenderness Knees: FROM, no effusion, no tenderness Ankles: FROM, non-tender, no effusion Labs/Studies: Reviewed. Assessment/Plan: 72-year-old male with past medical history of hypertension, BPH, peripheral neuropathy presenting for follow-up of GCA. Initially diagnosed July 2022 with headaches, joint pain, gait instability had tapered down to8 mg of prednisone. December 2021 had mildly elevated inflammatory markers with sed rate of 51, CRPof 5.2. Also developed intermittent recurrent headaches. He was started on Actemra and increase prednisone to 30 mg and tapered per giacta 26 week schedule. Actemra as stopped 04/17 due to recurrent cellulitis. Currently patient is on 4 mg of prednisone, inflammatory markers in mid April were normal.He does note some intermittent headaches but no persistent headache, no jaw claudication, vision changes vision loss. We will recheck his inflammatory markers today. If normal will continue tapering p rednisone 1 mg/month. Will remain off Actemra per patient preference due to history of recurrent infection. Plan -Prednisone 3 mg x 1 month then 2 mg x 1 month then 1 mg x 1 month -ESR CRP today, normal -Follow-up in 3 months Patient was discussed with Dr. Neel Payan DO Rheumatology Fellow Pager: [phone] documented in this encounter Plan of Treatment Not on file documented as of this encounter Goals Goal Patient Goal Type Associated Problems Recent Progress Patient-Stated? Author DH Self-Management Patient Facing Action Plan No Daniac Taylor, [facility] Note: Judson Patel JrRandy Is hoping to decrease his prednisone dosage and keep pain levels at a minimum. He is hoping that Actemra will be able to keep him walking since before prednisone he had a hard time standing up and walking around. documented as of this encounter Results * Sedimentation rate (05/31/2023 10:18 AM EDT) Sed Rate 4 3 - 46 mm/hr [facility] Comment: Effective November 05, 2019 new capillary photometric technology has resulted in a change in reference ranges. It is recommended that each ESR result be reviewed with its own age appropriate reference range. Blood 05/31/2023 10:1 8 AM EDT 05/31/2023 10:37 AM EDT Narrative Resulting Agency Comment Spec In Lab Linda Shaikh DO HEMATOLOGY ORDERAB LES [facility] [place] [address] * CRP, acute inflammation (05/31/2023 10:18 AM EDT) CRP <3.0 <=4.9 mg/L [facility] Blood 05/31/2023 10:1 8 AM EDT 05/31/2023 10:37 AM EDT Narrative Resulting Agency Comment Spec In Lab Linda Shaikh DO CHEMISTRY ORDERABL ES [facility] [place] [address] documented in this encounter Visit Diagnoses Diagnosis GCA (giant cell arteritis) Giant cell arteritis Medication monitoring encounter Encounter for therapeutic drug monitoring PMR (polymyalgia rheumatica) 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 Audit Clerk Relationship Specialty Start Date End Date Yesy Nagy APRN [address] [place] [address] PCP - General Geriatric Medicine 08/02/22 documented as of this encounter
--- OUTSIDE RECORDS SUMMARY | 2024-06-19 02:35 | XMS_ITS | Encounter Summary ---
Author Organization [facility] [place] [address] Care Team Providers Care Rn Advanced Name Role Phone Yesy Nagy APRN Primary Care Provider [phone] Reason for Visit * Reason Onset Date Comments Triage 09/10/2023 Encounter Details Date Type Department Care Team (Late st Contact Info) Description 09/10/2023 [place] [phone] Dia Rosario bending shed worker Social History Tobacco Use Types Packs/Day Years [...] encounter Miscellaneous Notes * Telephone Encounter - Dia Rosario RN - 09/10/2023 11:01 AM EDT Call returned to pt to inform him that per Dr. Payan, Yes. I would recommend pt do to the ED for further evaluation. Needs to bee seen in person. Difficult to know if this is a GCA flare. - would recommend in the ED to check the inflammatory markers. - also need f/u appointment- miss appointment with me last week. Pt verbalized understanding and reported that he was actually on the way to the ED at this time. * Telephone Encounter - Dia Rosario RN - 09/10/2023 9:59 AM EDT Call returned to pt regarding message left with the call center. Pt reported that he is currently having a major arthritis flare. Pt reported that he is experiencing weakness (mainly in his legs) and is balance is very bad (the worse it's ever been). Pt reported that he was able to get around 2 days ago but now it is very hard for him to get around. Pt reported that he has had to crawl to the bathroom. Pt reported that it is hard for him to hold in his urine. Pt stated that he has not been ill and he has not had any fevers/chills. Pt reported that he did have a headache the other day that crept up from his gnosticist over the top of his head. Pt reported thathe may have some scalp sensitivity. Pt denied trouble chewing and blurry vision at this time. RN asked pt if he has continued to take the 5 mg prednisone daily (following a prednisone taper) as discussed with Dr. Payan on 07/19/23. Pt stated it didn't work and did not directly answer if he was taking prednisone daily or not. Pt reported that he was thinking about calling 911; RN advised pt that if he thinks that he needs to call 911 for his current symptoms then he should call 911. Pt was informed that their report will be forwarded to Dr. Payan for review and input. When this isavailable pt will be called back. Pt is agreeable to plan. * Telephone Encounter - Dia Rosario RN - 09/10/2023 9:59 AM EDT Copied from [facility] #[id number]. Topic: Specialty Dept CRMs - Triage >> Sep 10, 2023 8:16 AM Manjula Sanford wrote: Triage Message Specialist: Ananya Payan, DO Relationship (if other than patient-full name): self Symptom: arthritis flare , uncontrolled bowels, hard time walking Has patient experienced symptom before yes If patient has experienced symptom before, when was the last time this occurred awhile Is patient currently having symptom yes When did symptom begin sunday Additional Comments: Patient is calling to state that starting Sunday its been very hard for him to walk. Patient stated that he lost control of his bowels because he couldn't get to the bathroom in time. Patient also stated this morning that he had to crawl to the bathroom and urinated on himself. He would like to speak with someone. Please call to advise. documented in this encounter Plan of Treatment Not on file documented as of this encounter Goals Goal Patient Goal Type Associated Problems Recent Progress Patient-Stated? Author DH Self-Management Patient Facing Action Plan No Danica Taylor, [facility] Note: Judson Nagel Jorge Cisse. Is hoping to decrease his prednisone dosage and keep pain levels at a minimum. He is hoping that Actemra will be able to keep him walking since before prednisone he had a hard time standing up and walking around. documented as of this encounter Visit Diagnoses Not on filedocumented in this encounter Care Teams Rn Advanced Relationship Specialty Start Date End Date Yesy Nagy APRN [address] [facility] [place] [address] PCP - General Geriatric Medicine 08/02/22 documented as of this encounter
--- OUTSIDE RECORDS SUMMARY | 2024-06-19 02:35 | XMS_ITS | Encounter Summary ---
Author Organization [facility] Address [address] [place] [address] Care Team Providers Care Senior Construction Estimator Name Role Phone Unknown, Provider Primary Care Provider [phone] Unknown, Provider Unavailable [phone] Encounter Details Date Type Department Care Team (Late st Contact Info) Description 12/24/2020 Lab Requisition [facility] Pathology & Laboratory Medicine - [address] [address] Outr Resulting Lab, Provider Social History Tobacco [...] Associated Diagnosis Comments PSA TOTAL, DIAGNOSTIC Routine 12/24/2020 12:05 EST documented in this encounter Results * PSA TOTAL, DIAGNOSTIC (12/24/2020 12:05 EST) PSA 1.4 0.0 - 6.5 ng/mL 12/24/2020 22:11 EST [facility] Blood VENOUS BLOOD / Unknown 12/24/2020 12:05 EST 12/24/2020 21:03 EST Narrative [facility] - 12/24/2020 22:11 EST NOTE: Serum PSA concentration should not be interpreted as absolute evidence for the presence or absence of malignant disease. Assayed on [employer] XPT using chemiluminescent technology.??Values obtained by using different assay methods cannot be used interchangeably. Provider Outr Resulting Lab CHEMISTRY & BLOOD GAS ORDERABLES [facility] [address] [place] [address] documented in this encounter Visit Diagnoses Not on filedocumented in this encounter Care Teams Senior Construction Estimator Relationship Specialty Start Date End Date Unknown, ProviderMD PCP - General 11/10/15 Unknown, ProviderMD 11/10/15 documented as of this encounter
--- OUTSIDE RECORDS SUMMARY | 2024-06-19 02:35 | XMS_ITS | Encounter Summary ---
Author Organization [facility] Address [facility] [address] [address] Care Team Providers Care Web Development Director Name Role Phone Yakov Yesybe LY Primary Care Provider [phone] Reason for Visit * Consultation (STAT) - Closed Specialty Diagnoses / Procedures Referred By Socrates t Referred To Contact Dermatology Diagnoses Candidal paronychia Yesy Nagy APRN [address] [place] [address] [facility] Dermatology [address] [place] [address] Referral ID Status Reason Start Date Expiration Date V isits Requested Visits Authorized [id number] Closed Consult, Test & Treat 05/07/2023 05/06/2024 1 1 Encounter Details Date Type Department Care Team (Latest Contact Info) Description 05/23/2023 11:20 AM EDT Office Visit Dermatology at [facility] [address] [place] [phone] Rafa Rachel MD [facility] [place] [address] Onychomycosis (Primary Dx); Chronic paronychia of finger, unspecified laterality Social History Tobacco Use Types Packs/Day Years [...] as of this encounter Progress Notes * Rafa Rachel MD - 05/23/2023 11:20 AM EDT Images from the original note were not included. DEPARTMENT OF DERMATOLOGY Medical Dermatology Clinic Note Provider: Rafa Rachel MD Patient's preferred name Judson Preferred contact method for results []Phone []myD-H []Letter Detailed phone message OK? Not assessed in this visit Are there any other people with whom we may discuss your care? Not assessed in this visit Past Medical History Date, location, treatment Melanoma N Dysplastic nevi N SCC N BCC N AKs N UV Exposure & Protection N Other relevant past medical history Giant cell arteritis, on 5mg prednisone daily and was previously on Tociliziumab injections weekly (discontinued ~ 1 month ago) Family History Details Melanoma N NMSC N Other relevant family history N Social History Occupation: N Hobbies: N Other: N Pre-Procedure Questions Details Allergy to lidocaine, epinephrine, Dermabond, chlorhexidine, or adhesives Not assessed in this visit Bleeding disorder or blood thinners Not assessed in this visit Implanted devices (Pacemaker, defibrillator, deep brain stimulator, cochlear implant) Not assessed in this visit History of Present Illness: Judson Patel Jr. is a 72 y.o. Patient is referred to the clinic at the request of Yesy Nagy for chronic paronychia of the left ring finger with onychomycosis. Has required two incisions and drainages over the past 2 months. Culture resulted with dillon growth.Was on 1 week of ketoconazole 100mg daily, spaced to 100mg every other day x 14 days. Has had improvement overall in nail but onychomycosis persists Review of Systems: General: Feeling well. Skin: No other skin concerns. Medications: Reviewed in eD-H Allergies: Reviewed in eD-H Skin Examination: Focused skin examination of the bilateral hands and face was normal with the exception of the findings below. Assessment/Plan #. Chronic Paronychia #. C/b onychomycosis EXAM: paronychia with yellowing and hyperkeratosis on the right fourth finger. (Figure 1) - Hx of giant cell arteritis, on prednisone 5mg daily - About 2 months ago, experienced acute paronychia requiring I&D x 2 at local ED - Previously treated with fluconazole 100mg tablets daily x 1 week, followed by every other day x 2weeks - Discussed with patient that dillon growth is not the culprit for paronychia, but is an opportunistic growth from chronic paronychia - Treatment of paronychia aimed at decreasing inflammation - Will treat secondary onychomycosis with fluconazole to finish treatment course - Discussed at length the need to avoid alcohol and the adverse risks associated with liver toxicity, patient accepts risks and agrees to stop alcohol while on medication - Labs from 05/14/2023 reviewed, CBC, AST & ALT are WNL - Will repeat labs in 2 weeks Plan: - Recommended dilute vinegar spritzes (1 part vinegar, 6 parts water) twice daily. - Advised patient to continue to avoid excessive moisture of the hands - start Rx: fluocinonide (Lidex) 0.05% cream: Apply to affected areas on right fourth finger nail folds twice daily for 14 days and then switch to weekends only (Sat-Sun) for maintenance. - Continue Rx: Fluconazole 150mg every other day for additional 3 weeks - Obtain labs in 3 weeks (sent to [facility]) Figure 1 Figure 2 Photo(s) taken and charted with patient's verbal consent. Other: Reviewed and/or interpreted test results Reviewed external notes/records RTC: 3 months for candidal paronychia follow up []Note routed to alumni secretary [x]Recall placed in scheduling system []Appointment scheduled at checkout Scribe attestation: Alex Rivera has performed the documentation for this encounter in the presence of and acting as a scribe for Rafa Rachel MD. I performed the above scribed service and agree with the accuracy of the documentation in this encounter. Reviewed and signed by: Rafa Rachel MD Dermatology [facility] Patient seen and evaluated with staff thread machine operator: Tonny Gudino MD Department of Dermatology [facility] * Tonny Gudino MD - 05/23/2023 11:20 AM EDT I directly supervised Dr. Rachel during this office visit. Dr. Rachel presented the history and physical exam to me. I, then, saw and examined this patient with Dr. Rachel. We reviewed the history and pertinent details and I confirmed the physical findings. I agree with the details of the history and physical exam as documented in Dr. Pierson's note. TONNY GUDINO MD Staff Physician documented in this encounter Plan of Treatment Not on file documented as of this encounter Goals Goal Patient Goal Type Associated Problems Recent Progress Patient-Stated? Author DH Self-Management Patient Facing Action Plan No Danica Taylor, [facility] Note: Judson Nagel Jorge Funk Is hoping to decrease his prednisone dosage and keep pain levels at a minimum. He is hoping that Actemra will be able to keep him walking since before prednisone he had a hard time standing up and walking around. documented as of this encounter Visit Diagnoses Diagnosis Onychomycosis- Primary Dermatophytosis of nail Chronic paronychia of finger, unspecified laterality documented in this encounter Care Teams Web Development Director Relationship Specialty Start Date End Date Yesy Nagy APRN [address] [place] [address] PCP - General Geriatric Medicine 08/02/22 documented as of this encounter
--- OUTSIDE RECORDS SUMMARY | 2024-06-19 02:35 | XMS_ITS | Data Portability ---
Author Organization [place] - [facility] [employer], MAIN OFFICE Address [address] [place] [phone] Assessment Encounter Date Assessment Date Assessment LastModified by Organization Details LastModified Time 12/21/2021 12/21/2021 I spent a total of 60 minutes face to face time with this patient and 35 minutes of that time was spent in counseling and coordination of care with that patient as described in the progress note and /or: recommended diagnostic studies recommended diagnostic studies recently done with [facility]pc Risk factor reduction instructions for treatment and follow-up Not available 01/03/2022 11:01:24 01/11/2022 01/11/2022 I spent a total of 45 minutes face to face time with this patient and all of that time was spent in counseling and coordination of care with that patient as described in the progress note and /or: diagnostic results and impressions, recommended diagnostic studies, risk factor reduction, recommended diagnostic studies,diet supplements he has put himself on and instructions for treatment and follow-up. Not available 01/20/2022 14:41:21 03/21/2022 03/21/2022 I spent a total of 45 minutes face to face time with this patient and of that time was spent in counseling and coordination of care with that patient as described in the progress note and /or: diagnostic results and impressions, importance of compliance with treatment plan, risk factor reduction, and instructions for treatment and follow-up. Not available 03/21/2022 15:03:38 Plan of Treatment Reminders Order Date Submit Date Provider Last Modified By Organization Details Last Modified Time Details Appointments None recorded. Lab lipoprotein (A), serum 2021 022 [facility] (Registration ), [address] [place] [address] Dr, [place], [address], 2 05:00:50 homocystein e, serum or plasma 2021 [facility] (Registration ), [address] [place] [address] [place] [facility] [place], [address], 2 05:00:50 magnesium, serum or plasma 2021 [facility] (Registration ), [address] [place] [address] [place] [facility] [place], [address], 2 05:00:50 electrolyte panel, serum 2021 [facility] (Registration ), [address] [place] [address] [place] [facility] [place], [address], 2 05:00:50 vitamin D, 25-hydroxy, total, serum 2021 022 [facility] (Registration ), [address] [place] [address] [place], [address], 2 05:00:50 vitamin B12 + folate, serum or blood 2021 022 [facility] (Registration ), [address] [place] [address] [place], [address], 2 05:00:50 CBC w/ diff 2021 022 [facility] (Registration ), [address] [place] [address] [place], [address], 2 05:00:50 iron + TIBC + ferritin, serum 2021 022 [facility] (Registration ), [address] [place] [address] [place] [facility], [address], 2 05:00:50 testosteron e, free + total, w/ shbg, serum 2021 022 [facility] (Registration ), [address] [place] [address] Dr, [place], [address], 05:01:12 dhea-sulfat e, serum 2021 022 [facility] (Registration ), [address] [place] [address] [place], [address], 2 05:01:12 estrogen, total, serum 2021 022 [facility] (Registration ), [address] [place] [address] [place], [address], 05:01:12 Referral None recorded. Procedures None recorded. Surgeries None recorded. Imaging None recorded. Medication Orders None recorded. Patient TargetsNo targets recorded. Patient Instructions Encounter Date Encounter Id Patient Instructions Last Modified By Organization Details Last Modified Time 12/21/2021 [id number] neuropathic pain : care instructions Not available 01/03/2022 11:03:00 1. stop vitamins 3 days prior to bloodwork- 2. eat fish 3/ pro-omega 1000mg-1 cap 2xday or another by exozet 4. NEXT VISIT- bring bag of vitamins go over labwork next visit magnesium taurate 1 cap 2xday ther-biotic 1 cap 2xday Coq10 1 cap/day Aly phoenix 40 drops 3xday Not available 12/21/2021 12:39:51 01/11/2022 [id number] Decreased Male Libido: Care Instructions Not available 01/20/2022 14:41:35 high cholesterol : care instructions kknight Not available 01/20/2022 14:41:35 1 pure genomics b complex 1 cap/day 2.Do not take citruline products right now- 3. Hormone testing -at [facility]- to see if testosterone is high or low- and other cortisol, Neurotransmitters , etc from [facility] in future other supplemets discussed- the manufacture matters as well- bc of the other ingredients 4. MAgnesium taurate 1cap 2xday 5. D-mulsion lasts at least half a year only 20.00 and gets numbers up faster than capsules kk Not available 01/20/2022 14:40:27 03/21/2022 [id number] high cholesterol : care instructions Not available 03/21/2022 15:05:01 benign prostatic hyperplasia: care instructions Not available 03/21/2022 15:05:01 1. Niatain- week 1- 1/2 tab in am with bcomplex- and drink 2-3 cups of water and can take baby aspirin at same time to reduce flushing week 2 -take 1 full tab with water etc week 3 -1.5 tabs week 4 -2 tabs in am and 1 tab in pm 2. Prostate -B 1 cap 3xday Not available 03/21/2022 15:02:18 Reason for Referral None Reported. Problems Name Status Onset Date Resolution Date Notes Provider Name and Address Organization Details Recorded Time Hypertensive disorder Active 12/21/19 22 Nathalie Read ND [address] [place] [address], [phone] , [facility] 12/21/2021 11:49:13 Neuropathy Active 12/21/19 22 Nathalie Read ND [address] [place] [address], [phone] , [facility] 12/21/2021 11:49:38 Hyperlipidemia Active 12/21/19 22 Nathalie Read ND [address] [place] [address], [phone] , [facility] 12/21/2021 11:49:50 Family history of Cardiovascular disease Active 01/03/20 22 Nathalie Read KERRI [address] [place] [address], [phone] , [facility] 01/03/2022 10:51:12 Fatigue Active 01/03/20 22 Nathalie Read ND [address] [place] [address], [phone] , [facility] 01/03/2022 10:51:13 Vitamin D deficiency Active 01/03/20 22 Nathalie Read ND [address] [place] [address], [phone] , [facility] 01/03/2022 10:51:16 Benign prostatic hyperplasia Active 03/21/20 22 Nathalie ReadKERRI [address] [place] [address], [phone] , [facility] 03/21/2022 15:02:37 Problem Notes None recorded. Procedures Surgical History Date Name Laterality Status Provider Name and Address Organization Details Recorded Time 11/26/18 54 Removal of tonsils completed Nathalie Read ND [address] [place] [phone], [facility] 12/21/2021 11:56:41 11/26/18 53 Appendectomy completed Nathalie Read ND [address] [place] [phone], [facility] 12/21/2021 11:56:11 Imaging Results None recorded. Procedure Notes None recorded. Medical Equipment None Reported. Allergies No known drug allergies Medications Name Sig Start Date Stop Date Status Note LastModified by Organization Details LastModified Time amlodipine 5 mg tablet TAKE ONE TABLET BY MOUTH EVERY DAY active Not Available Not Available No t Available tamsulosin 0.4 mg capsule TAKE TWO CAPSULES BY MOUTH EVERY DAY 12/21 completed Not Available Not Available Not Available atenolol 50 mg tablet TAKE ONE TABLET BY MOUTH AT BEDTIME 12/21 completed Not Available Not Available Not Available Vitals Date Recorded Body weight Body mass index (BMI) Body height Heart rate Oxygen saturation Oxygen saturation in Arterial blood by Pulse oximetry Systolic blood pressure Diastolic blood pressure Provider Name and Address Organization Details Last Updated DateTime 2 75867.6 7 g 23.5 kg/m2 168.91 cm 69.97 /min 96.98 % 96.98 % 138 mm[Hg] 60 mm[Hg] Nathalie Read ND [address] [place] [phone], [facility] 2 11:48:04 Date Recorded Body height Systolic blood pressure Diastolic blood pressure Provider Name and Address Organization Details Last Updated DateTime 03/21/2022 168.91 cm 138 mm[Hg] 66 mm[Hg] Nathalie Read [address] [phone], [facility] 03/21/2022 15:04:52 Social History None recorded. Functional Status None recorded. Mental Status None recorded. Family History Relationship Description Onset Age of this Age Resolved Age Notes Father Carcinoma of prostate 73 Father Myocardial infarction 59 Paternal Grandfather Carcinoma of prostate Mother Diabetes mellitus 69 Brother Myocardial infarction 51 Medical History Condition Response Coronary Artery Disease N Other N Gout N Kidney Stones N Blood Diseases N Hyperthyroidism N Breast Cancer N Blood Transfusion N Hospital Admission Other Than N Hypothyroidism N Lung Disease N Depression N COPD N Defects or Inherited Disease N Developmental or Behavioral Disorders N Breast Problem N Difficulty Swallowing N Anesthesia Complications N Meniere's disease N Anxiety Disorder N Muscle, Joint, or Bone Problems N Obesity N Vision or Eye Problems N Arthritis N Head Injury/Concussion N Polyps N Infertility N Mental Disorder N Congenital Anomalies N Cancer N Varicosities N Stroke N Endometriosis N Bladder or Kidney Problems N High Cholesterol Y Liver Disease Y Headaches N Fibromyalgia N Kidney Disease N Allergies/Hayfever N Heart Problems N Sleep problems/insomnia Y Ear or Hearing Problems Y Hospitalizations Y Thyroid Problems N GI Problems Y ADD/ADHD N Skin Problems Y Eating Disorder N Anemia Y MRSA exposure N Constipation N Mental Illness N Ovarian Cancer N Diabetes N Bedwetting N Seizures/Epilepsy N Tuberculosis N AIDS/HIV N Congestive Heart Failure (CHF) N Eczema N Diverticulitis N Abuse/Domestic Violence N Asthma N Reflux/GERD N Hepatitis Y Heart Disease N Pulmonary Embolism N Pre-Eclampsia N Hypertension Y Chronic Ear Infections Y Osteoporosis N Chicken Pox Y Autism Spectrum Disorder (ASD) N Thrombophilias N Past Encounters Encounter ID Performer Location Encounter Start Date Encounter Closed Date Diagnosis/Indication Diagnosis SNOMED-CT Code [id number] Nathalie Read ND MAIN OFFICE [address] [place] [address] 12/21/2021 11:36:00 01/03/2022 11:56:15 Family history of Cardiovascular disease 436717482 Fatigue 19493826 Vitamin D deficiency 347 10052 Hypertensive disorder 38 400363 Neuropathy [id number] Nathalie Read ND MAIN OFFICE [address] [place] [address] 01/11/2022 13:30:54 01/20/2022 14:41:50 Reduced libido 5428007 Hyperlipidemia 55463326 Vitamin D deficiency 347 93370 Hypertensive disorder 38 041676 [id number] Nathalie Read ND MAIN OFFICE [address] [place] [address] 03/21/2022 14:38:41 04/06/2022 10:08:27 Benign prostatic hyperplasia 063442524 Hyperlipidemia 69024808 Health Concerns Section Related Observation LastModified by Organization Detai ls LastModified Time None Recorded Concern Status LastModified by Organization Details LastModified Time None Recorded Advance Directives Directive None Recorded Payers Encounter Date Sequence Insurance Name Policy Number Policy Rivera Covered Member ID Rivera Member ID Guarantor Name 12/21/2021 1 [facility] (MEDICAID) Judson Nagel Jorge [id number] Judson Patel 01/11/2022 1 [facility] (MEDICAID) Judson Patel [id number] Judson Patel 03/21/2022 1 [facility] (MEDICAID) Judson Robe Patel [id number] Judson Nagel Jorge Notes Date Note Type Note Provider Name and Address Organization Details Recorded Time 12/21/2021 text/html HPI Notes: pt is here to establish care and he wants something else to treat blood pressure has imbalances on medication and he has neuropathy- he htaes b complex every day nerve problems in leg- 7/8 yrs ago he uses to walk a lot- and left leg got excrutiationg pain and he went to DR Padilla almost crying due to pain he had neuro workup- results was nothing- never happened again- numbness in feet started 10 yrs ago sts not as bad- lately left foot doesnt know where its going has had chest pain and they told him it was anxiety and stress father had 2 heart attacks and so di brother at age 51 takes vit D, MAgnesium, Bcomplex, Zinc, energenC, protein shake daily eats a lot of chicken- brown rice- potatoes and squash- fruit: tomoatoes and brocolli- celery onions- grapefruit- lately but doesnt like it- he takes aspirin- every noght to sleep- he has been taking for many years- Nathalie Read, ND [address] [facility], [place], [address], [place] - [facility] 01/03/2022 11:03:14 01/11/2022 text/html HPI Notes: lab results reviewed 25 minutes ferritin 169- was told he was anemic he wasnt taking iron when se had bloodwork - and reports only took for 2 days- after ejaculation he had pain- in groin- takes citruline every day- has been taking for a year- urination- decreased force of stream yes- and not always slight discomfort after sex no varicocele that he know so of- hasnt had exam for 2 yrs he brought a huge bag of supplements- we reviewed made recommendations of what to keep and what to discard. Nathalie Read ND [address] [facility], [place], [address], [facility] [employer] [facility] 01/20/2022 14:41:41 03/21/2022 text/html HPI Notes: 130/6 6 amlopidine seems to be working well- below- he started niacin- and he gets a lot of itching- with it- but itching comes days later- reviewed plan with baby askipirn and extra water Nathalie Read ND [address] [facility], [place], [address], [facility] 03/21/2022 15:05:24
--- OUTSIDE RECORDS SUMMARY | 2024-06-19 02:35 | XMS_ITS | Encounter Summary ---
[place] [address] Care Team Providers Care Environmental Lawyer Name Role Phone MikeYesy Swenson MALACHI Primary Care Provider Encounter Details Date Type Department Care Team (Latest Contact Info) Description 05/31/2023 10:15 AM EDT Laboratory Appointment Lab [address] [place] [address] GCA (giant cell arteritis); Immunosuppressed status; Medication monitoring encounter; Hyperlipidemia, unspecified hyperlipidemia type Social History Tobacco Use Types Packs/Day Years [...] Patient Facing Action Plan No Danica Taylor, [facility] Note: Judson Patel Jr. Is hoping to decrease his prednisone dosage and keep pain levels at a minimum. He is hoping that Actemra will be able to keep him walking since before prednisone he had a hard time standing up and walking around. documented as of this encounter Procedures Procedure Name Priority Date/Time Associated Diagnosis Comments HC C-REACTIVE PROTEIN Routine 05/31/2023 10:18 AM EDT GCA (giant cell arteritis) Medication monitoring encounter HEMOGRAM Routine 05/31/2023 10:18 AM EDT GCA (giant cell arteritis) Immunosuppressed status Medication monitoring encounter DIFFERENTIAL, AUTOMATED Routine 05/31/2023 10:18 AM EDT GCA (giant cell arteritis) Immunosuppressed status Medication monitoring encounter HC ESR-SEDIMENTATION RATE, BLOOD Routine 05/31/2023 10:18 AM EDT GCA (giant cell arteritis) Medication monitoring encounter HC CBC,PLT & AUTO DIFF Routine 05/31/2023 10:18 AM EDT GCA (giant cell arteritis) Immunosuppressed status Medication monitoring encounter LIPID PANEL (REFLEX DIRECT LDL) Routine 05/31/2023 10:18 AM EDT GCA (giant cell arteritis) Immunosuppressed status Medication monitoring encounter Hyperlipidemia, unspecified hyperlipidemia type HC VENIPUNCTURE Routine 05/31/2023 10:18 AM EDT GCA (giant cell arteritis) Immunosuppressed status Medication monitoring encounter documented in this encounter Results * (ABNORMAL) Differential, Automated (05/31/2023 10:18 AM EDT) Neutrophils % 61.4 % [facility] Neutr Abs (ANC) 4.38 1.70 - 6.10 x10(3)/mc L [facility] Lymphocytes % 25.0 % [facility] Lymphocytes Abs 1.8 0.9 - 3.2 x10(3)/mc L [facility] Monocytes % 11.4 % [facility] Monocyte Abs 0.8 0.3 - 0.9 x10(3)/mc L [facility] Eosinophils % 1.1 % [facility] Eosinophils Abs 0.1 0.0 - 0.4 x10(3)/mc L [facility] Basophils % 0.4 % [facility] Basophils Abs 0.0 0.0 - 0.1 x10(3)/mc L [facility] Immature Gran % 0.70 % [facility] Comment: Immature granulocytes(IG's)percentage and absolute count will include metamyelocytes, myelocytes, and promyelocytes. Blood smears from CBCs yielding IG's will be scanned manually for concordance. If this scan disagrees with the automated IG or if promyelocytes are noted, a manual differential will be performed. Carrol Gran Abs 0.05(H) 0.00 - 0.04 x10(3)/mc L [facility] Blood 05/31/2023 10:1 8 AM EDT 05/31/2023 10:37 AM EDT Narrative Resulting Agency Comment Spec In Lab Ananya Payan DO HEMATOLOGY ORDERABLE S [facility] [place] [address] * (ABNORMAL) Hemogram (05/31/2023 10:18 AM EDT) WBC 7.1 4.0 - 9.5 x10(3)/[facility] RBC 4.26(L) 4.58 - 5.54 x10(6)/[facility] Hemoglobin 14.2 13.7 - 16.5 g/dL [facility] Hematocrit 40.3(L) 40.5 - 48.5 % [facility] MCV 94.6(H) 82.9 - 93.1 [facility] MCH 33.3(H) 27.5 - 32.1 pg [facility] MCHC 35.2 32.0 - 35.7 g/dL [facility] Platelets 195 145 - 357 x10(3)/[facility] RDWSD 47.1(H) 36.0 - 45.0 [facility] RDWCV 13.6 11.4 - 13.8 % [facility] MPV 9.8 7.6 - 12.9 [facility] nRBC % Auto 0.0 % [facility] nRBC Abs Auto 0.000 0.000 - 0.000 x10(3)/[facility] Blood 05/31/2023 10:1 8 AM EDT 05/31/2023 10:37 AM EDT Narrative Resulting Agency Comment Spec In Lab Ananya Payan DO HEMATOLOGY ORDERABLE S Performing Organization Address [facility]/ZIP Co de Phone Number [facility] [place] [address] * CRP, acute inflammation (05/31/2023 10:18 AM EDT) CRP <3.0 <=4.9 mg/L [facility] Blood 05/31/2023 10:1 8 AM EDT 05/31/2023 10:37 AM EDT Narrative Resulting Agency Comment Spec In Lab Linda Shaikh DO CHEMISTRY ORDERABL ES Performing Organization Address [facility] Co de Phone Number [facility] [place] [address] * Sedimentation rate (05/31/2023 10:18 AM EDT) Sed Rate 4 3 - 46 mm/hr [facility] Comment: Effective November 05, 2019 new capillary photometric technology has resulted in a change in reference ranges. It is recommended that each ESR result be reviewed with its own age appropriate reference range. Blood 05/31/2023 10:1 8 AM EDT 05/31/2023 10:37 AM EDT Narrative Resulting Agency Comment Spec In Lab Linda Shaikh DO HEMATOLOGY ORDERAB LES Performing Organization Address [facility]/ZIP Co de Phone Number [facility] [place] [address] * Lipid Panel (Reflex Direct LDL) (05/31/2023 10:18 AM EDT) Chol, Total 239 mg/dL [facility] Comment: Lower Risk: <200 mg/dL Average Risk: 200-239 mg/dL Higher Risk: >vj=609 mg/dL Triglycerides 191 mg/dL [facility] Comment: Average Risk/Lower Risk: <150 mg/dL Borderline High Risk: 150-199 mg/dL High Risk: 200-499 mg/dL Very High Risk: >ki=130 mg/dL HDL 51 mg/dL [facility] Comment: Males: ?? Higher Risk: <40 mg/dL Females: ?? Higher Risk: <50 mg/dL LDL Cholesterol 150 mg/dL [facility] Comment: Lowest Risk: <100 mg/dL Lower Risk: 100-129 mg/dL Borderline High Risk: 130-159 mg/dL High Risk: 160-189 mg/dL Very High Risk: >yd=977 mg/dL Chol/HDL Ratio 4.7 ratio [facility] Lipid Interpretation See Note [facility] Comment: Lipid management should be guided by a patient? s ASCVD risk, goals and preferences. ACC/AHA Guidelines recommend high intensity statin if clinical ASCVD or LDL greater than or equal to 190 mg/dL. http://[employer].com/UAC-YRR-Vuqzrymtz Adults aged 40-75 with LDL 70-189 mg/dL should have their 10 year ASCVD risk estimated with the ACC/AHA ASCVD risk electrical estimator http://tools.acc.org/TMQYG-Rlju-Xbmvfymll/ Statin should be discussed if risk greater than or equal to 7.5% in non-diabetics. With diabetes, moderate intensity statin is recommended if risk less than 7.5%, high intensity if risk greater than or equal to 7.5%. Annual lipid monitoring on statins is not necessary. Evaluate secondary causes of Triglycerides greater than 500 mg/dL or LDL greater than 190 mg/dL: See table 6 of ACC/AHA Guideline. Lifestyle modification is a critical component of ASCVD risk reduction. Blood 05/31/2023 10:1 8 AM EDT 05/31/2023 10:37 AM EDT Narrative Resulting Agency Comment Spec In Lab Junior Bernard MD CHEMISTRY ORDERABLE S [facility] [place] [address] * Comprehensive metabolic panel (non-fasting) (05/31/2023 10:18 AM EDT) Glucose Lvl 115 65 - 199 mg/dL [facility] Comment:Diabetes: >=200 mg/d L plus symptoms BUN 20 10 - 20 mg/dL [facility] Creatinine 1.15 0.80 - 1.50 mg/dL [facility] Sodium 139 135 - 145 mmol/L [facility] Potassium 4.6 3.5 - 5.0 mmol/L [facility] Comment: Please note: ??Patients with WBC >100,000 may have falsely elevated Potassium levels. ??For accurate Potassium quantification in these patients send serum separator tube (gold top) for subsequent determinations. ??Contact the Clinical Chemistry Laboratory if there are any questions. Chloride 103 98 - 107 mmol/L [facility] CO2 27 22 - 31 mmol/L [facility] Anion Gap 9 5 - 15 mmol/L [facility] Calcium 9.7 8.5 - 10.5 mg/dL [facility] Total Protein 6.7 6.1 - 8.0 g/dL [facility] Albumin 4.4 3.2 - 5.2 g/dL [facility] AST 16 0 - 39 unit/L [facility] ALT 12 0 - 55 unit/L [facility] Alk Phos 45 40 - 130 unit/L [facility] Total Bilirubin 0.6 0.2 - 1.3 mg/dL [facility] Estimated GFR 67 >=60 mL/min/1. 73 m?? [facility] Comment: This patient's estimated GFR was calculated using the 2020 CKD-EPI equation. The estimated GFR can vary from the measured GFR by up to 30% in the absence of rapidly changing kidney function. Assessment of the estimated GFR is not appropriate when creatinine concentrations are rapidly changing. For clinical situations in which a more precise estimate of GFR is necessary, consider alternative methods of GFR estimation such as a 24-hour urine creatinine clearance. Assignment of CKD stage 1-5 for patients with an eGFR near the transition point between stages may be based on clinical assessment of muscle mass and symptoms in addition to eGFR. Blood 05/31/2023 10:1 8 AM EDT 05/31/2023 10:37 AM EDT Narrative Resulting Agency Comment Spec In Lab Junior Bernard MD CHEMISTRY ORDERABLE S Performing Organization Address City/State/[facility] Co de Phone Number [facility] [place] [address] documented in this encounter Visit Diagnoses Diagnosis GCA (giant cell arteritis) Giant cell arteritis Immunosuppressed status Unspecified disorder of immune mechanism Medication monitoring encounter Encounter for therapeutic drug monitoring Hyperlipidemia, unspecified hyperlipidemia type documented in this encounter Care Teams Environmental Lawyer Relationship Specialty Start Date End Date Yesy Nagy APRN [address] [place] [address] PCP - General Geriatric Medicine 08/02/22 documented as of this encounter
--- OUTSIDE RECORDS SUMMARY | 2024-06-19 02:35 | XMS_ITS | Clinical Summary ---
Author Organization [facility] Address [address] [place] [id number] Care Team Providers Care Twister In Name Role Phone Unknown, Provider Primary Care Provider [phone] Unknown, Provider Unavailable [phone] Social History Tobacco Use Types Packs/Day Years Used Date Smoking Tobacco: Never Assessed Sex and Gender Information Value Date Recorded Sex Assigned at Not on file Gender Identity Not on file Sexual Orientation Not on file Plan of Treatment Health Maintenance Due Date Last Done Comments RSV Immunization ( o r 60+ Years) (1 - 1-dose 60+ series) 2008 Fall Risk Screening 2013 COVID-19 Vaccine ( season) 2023 Hepatitis C Screen Completed 08/18/2022 Procedures Procedure Name Priority Date/Time Associated Diagnosis Comments HEPATITIS C AB W REFLEX TO HCV RNA BY PCR Routine 08/18/2022 9:08 EDT from Last 3 Months or Most Recently Relevant to Health Maintenance Results * HEPATITIS C AB W REFLEX TO HCV RNA BY PCR (08/18/2022 9:08 EDT) Hep C Antibody Negative Negative 08/21/2022 10:[address] [facility] Blood VENOUS BLOOD / Unknown 08/18/2022 9:08 EDT 08/18/2022 18:19 EDT Provider Outr Resulting Lab CHEMISTRY & BLOOD GAS ORDERABLES [facility] [address] [place] [address] from Last 3 Months or Most Recently Relevant to Health Maintenance Care Teams Twister In Relationship Specialty Start Date End Date Unknown, Provider, PCP - General 11/10/15 Unknown, ProviderMD 11/10/15
--- OUTSIDE RECORDS SUMMARY | 2024-06-19 02:35 | XMS_ITS | Encounter Summary ---
Author Organization [facility] [place] [address] Care Team Providers Care Operations Systems Specialist Name Role Phone Yesy Nagy APRN Primary Care Provider [phone] Encounter Details Date Type Department Care Team (Late st Contact Info) Description 05/09/2023 Tele[place] [address] Landy Monson RN Social History Tobacco Use Types Packs/Day Years [...] Telephone Encounter - Ananya Payan DO - 05/09/2023 12:51 PM EDT Pt reports he continues on antibiotic for the finger infection - seen in ED twice - culture + Seen by PCP put on Sulconazole X 14 day.. -Continue Prednisone 5 mg daily, hold tocilizumab until infection clears. - will get records from PCP - Will also reach out to PCP, okay to resume tocilizumab once infection is better * Telephone Encounter - Landy Monson RN - 05/09/2023 12:42 PM EDT TC from patient requesting to have Dr Ananya Payan give him a call again,she did talk to him yesterday. Patient asking for Provider follow up. documented in this encounter Plan of Treatment Not on file documented as of this encounter Goals Goal Patient Goal Type Associated Problems Recent Progress Patient-Stated? Author DH Self-Management Patient Facing Action Plan No Danica Taylor, [facility] Note: Judson Nagel Jorge Funk Is hoping to decrease his prednisone dosage and keep pain levels at a minimum. He is hoping that Actemra will be able to keep him walking since before prednisone he had a hard time standing up and walking around. documented as of this encounter Visit Diagnoses Not on filedocumented in this encounter Care Teams Operations Systems Specialist Relationship Specialty Start Date End Date Yesy Nagy APRN [address] [place] [address] PCP - General Geriatric Medicine 08/02/22 documented as of this encounter
--- OUTSIDE RECORDS SUMMARY | 2024-06-19 02:35 | XMS_ITS | Encounter Summary ---
Author Organization [facility] [place] [address] Care Team Providers Care Technology Development Intern Name Role Phone MikeYesy Swenson MALACHI Primary Care Provider [phone] Encounter Details Date Type Department Care Team (Late st Contact Info) Description 06/22/2023 Telephone [place] [id number] Ananya Payan DO [facility] [place] [address] Social History Tobacco Use Types Packs/Day Years [...] Telephone Encounter - Ananya Payan DO - 06/22/2023 10:14 AM EDT - Pt noted increase joint pain in his fingers- PIPs. Some stiffness in AM. No swelling - No shoulder or hip stiffness. - no new TORRES, jaw claudications - possible inflammatory arthritis vs OA. - Will check inflammatory markers - ESR CRP - Advised to try diclofenac gell and tylenol Pt also reports itching, arms, legs, back, stomach. No rash. Advised to call PCP for follow up. documented in this encounter Plan of Treatment Not on file documented as of this encounter Goals Goal Patient Goal Type Associated Problems Recent Progress Patient-Stated? Author BRYAN Self-Management Patient Facing Action Plan No Danica Taylor, [facility] Note: Judson Robe Patel Jr. Is hoping to decrease his prednisone dosage and keep pain levels at a minimum. He is hoping that Actemra will be able to keep him walking since before prednisone he had a hard time standing up and walking around. documented as of this encounter Visit Diagnoses Diagnosis PMR (polymyalgia rheumatica) Polymyalgia rheumatica Primary osteoarthritis of both hands documented in this encounter Care Teams Technology Development Intern Relationship Specialty Start Date End Date Yesy Nagy APRN [address] [place] [address] PCP - General Geriatric Medicine 08/02/22 documented as of this encounter
--- OUTSIDE RECORDS SUMMARY | 2024-06-19 02:35 | XMS_ITS | Encounter Summary ---
Author Organization [facility] [place] [address] Care Team Providers Care Jig Inspector Name Role Phone Yesy Nagy APRN Primary Care Provider Encounter Details Date Type Department Care Team (Latest Contact Info) Description 05/23/2023 Travel Social History Tobacco Use Types Packs/Day Years [...] Patient Facing Action Plan No Danica Taylor, [facility] Note: Judson Robe Patel Jr. Is hoping to decrease his prednisone dosage and keep pain levels at a minimum. He is hoping that Actemra will be able to keep him walking since before prednisone he had a hard time standing up and walking around. documented as of this encounter Visit Diagnoses Not on filedocumented in this encounter Care Teams Jig Inspector Relationship Specialty Start Date End Date Yesy Nagy APRN [address] [place] [address] PCP - General Geriatric Medicine 08/02/22 documented as of this encounter
--- OUTSIDE RECORDS SUMMARY | 2024-06-19 02:35 | XMS_ITS | Encounter Summary ---
Author Organization [facility] Address [facility] [place] [address] Care Team Providers Care Cable Operator Name Role Phone Yesy Nagy APRN Primary Care Provider [phone] Reason for Visit * Reason Onset Date Comments Questions 09/14/2023 Encounter Details Date Type Department Care Team (Late st Contact Info) Description 09/14/2023 Telephone [place] [phone] Dia Rosario RN Questions Social History Tobacco Use Types Packs/Day Years [...] Telephone Encounter - Dia Rosario RN - 09/14/2023 11:54 AM EDT Call returned to pt regarding message left with the call center. Pt reported that he has been taking 7 mg prednisone for over 2 weeks and wanted to know if he should decrease his dose further? RN looked at telephone note from Dr. Payan dated 07/19/23 and per that note the plan was to continue 10 mgdaily X 2 weeks, then taper slow, 9mg daily X 2 week, 8 mg X 2 week, 7 mg X 2 week, 6 mg X 2 week and then stay on 5 mg daily. Pt verbalized understanding and will decrease his dose to 6 mg tomorrow. Pt reported that his rheum symptoms are doing good. Pt reported that he is getting over a case of Covid and is feeling better in that regard. Pt aware that he has a telephone office visit scheduled for 09/18/23 at 4 pm. * Telephone Encounter - Dia Rosario RN - 09/14/2023 11:54 AM EDT Copied from [facility] #[id number]. Topic: Specialty Dept CRMs - Triage >> Sep 14, 2023 11:41 AM Arabella Cohen wrote: Triage Message Specialist: Ananya Payan DO Relationship (if other than patient-full name): Self Symptom: Medication: Question Has patient experienced symptom before : n/a If patient has experienced symptom before, when was the last time this occurred : n/a Is patient currently having symptom : no When did symptom begin : Additional Comments: Judson calling to see if it would be ok to resume lowering of predniSONE (Deltasone) 1 mg tablet. Please call to discuss. documented in this encounter Plan of Treatment Not on file documented as of this encounter Goals Goal Patient Goal Type Associated Problems Recent Progress Patient-Stated? Author DH Self-Management Patient Facing Action Plan No Danica Taylor, [facility] Note: Judson Robe Patel Jr. Is hoping to decrease his prednisone dosage and keep pain levels at a minimum. He is hoping that Actemra will be able to keep him walking since before prednisone he had a hard time standing up and walking around. documented as of this encounter Visit Diagnoses Not on filedocumented in this encounter Care Teams Cable Operator Relationship Specialty Start Date End Date Yesy Nagy APRN [address] [place] [address] PCP - General Geriatric Medicine 08/02/22 documented as of this encounter
--- OUTSIDE RECORDS SUMMARY | 2024-06-19 02:35 | XMS_ITS | Encounter Summary ---
[place] [address] Care Team Providers Care Games Dealer Name Role Phone Yesy Nagy APRN Primary Care Provider Encounter Details Date Type Department Care Team (Late st Contact Info) Description 07/04/2023 [place] [address] Landy Monson RN Social History [...] Telephone Encounter - Landy Monson RN - 07/04/2023 2:45 PM EDT Copied from [facility] #[id number]. Topic: Specialty Dept CRMs - Generic Call >> Jul 04, 2023 1:49 PM Jessica Clark wrote: Specialist: Schuyler Relationship (if other than patient-full name): self Reason for Call: patient calling back stating that the provider called him yesterday and told him his results. Patient states that he never had the chance to talk to the provider and ask her questions Message to Provider to return call to patient. documented in this encounter Plan of Treatment Not on file documented as of this encounter Goals Goal Patient Goal Type Associated Problems Recent Progress Patient-Stated? Author BRYAN Self-Management Patient Facing Action Plan No Danica Taylor, [facility] Note: Judson Robe Patel Jr. Is hoping to decrease his prednisone dosage and keep pain levels at a minimum. He is hoping that Actemra will be able to keep him walking since before prednisone he had a hard time standing up and walking around. documented as of this encounter Visit Diagnoses Not on filedocumented in this encounter Care Teams Games Dealer Relationship Specialty Start Date End Date Yesy Nagy APRN [address] [place] [address] PCP - General Geriatric Medicine 08/02/22 documented as of this encounter
--- OUTSIDE RECORDS SUMMARY | 2024-06-19 02:35 | XMS_ITS | Clinical Summary ---
Author Organization [facility] Address [facility] [place] [address] Care Team Providers Care Ceramic Tile Setter Name Role Phone Yesy Nagy MALACHI Primary Care Provider +1- [phone] Allergies Active Allergy Reactions Criticality Noted Date Comments Amoxicillin Nausea And Vomiting High 05/07/2023 Atenolol Other (See Comments) High 05/07/2023 Clavulanic Acid Nausea And Vomiting High 05/07/2023 Medications Medication Sig Dispensed Refills Start Date End Date Status tamsulosin (FLOMAX) 0.4 mg Capsule, Sust. Release 24 hr Take 0.4 mg by mouth daily. 04/17/2016 Active aspirin 325 mg Tablet Take 325 mg by mouth daily. Active VITAMIN B COMPLEX-100 ORAL Take by mouth. Active amLODIPine (Norvasc) 5 mg Tablet amlodipine 5 mg tablet TAKE ONE TABLET BY MOUTH EVERY DAY Active ZINC ORAL Take by mouth. Active docosahexaenoic acid/epa (FISH OIL ORAL) Take by mouth. Active Ascorbic Oojh-Uabdwxucs-Lfx (Emergen-C) 1,000 mg Powder Effervescent in Packet Take by mouth. Active metFORMIN XR (Glucophage XR) 500 mg Tablet Sustained Release 24 hr Take 500 mg by mouth daily. 01/01/2023 Active hydrocortisone 2.5 % Cream APPLY TOPICALLY THREE TIMES A DAY NEEDED FOR SKIN IRRITATION/HEMMO RRHOID 01/01/2023 Active fluocinonide (LIDEX) 0.05 % CreamIndications:Manager Managing deborah paronychia of finger, unspecified laterality Apply topically 2 times daily (BID) for 14 days. Then switch to applying topically 2 times daily (BID) on weekends only (Sat-Sun) for maintenance. 30 g 3 05/23/2023 Active cholecalciferol, Vitamin D3, 25 mcg (1,000 unit) Capsule daily. 09/20/2022 Acti ve clotrimazole (LOTRIMIN) 1 % Cream Twice a day 04/30/2023 Act celio ketoconazole (NIZORAL) 2 % Shampoo .2x/week 02/19/2023 Act celio diclofenac (Voltaren) 1 % GelIndications:PMR (polymyalgia rheumatica),Primary osteoarthritis of both hands Apply 2 g topically 4 times daily. 100 g 3 06/22/2023 Active predniSONE (Deltasone) 2.5 mg tabletIndications:GCA (giant cell arteritis),PMR (polymyalgia rheumatica) Take 3 tablets by mouth daily. 270 tablet 1 05/28/2024 Active predniSONE (Deltasone) 5 mg tabletIndications:GCA (giant cell arteritis) Take 1 tablet by mouth daily. 90 tablet 05/28/2024 Active Active Problems Problem Noted Date Diagnosed Date PMR (polymyalgia rheumatica) 09/14/2022 Encounters Date Type Department Care Team Description 05/27/2024 [place] [address] Ananya Payan DO GCA (giant cell arteritis); PMR (polymyalgia rheumatica) 04/30/2024 [place] [address] Brittni Hamilton 04/28/2024 [place] [address] Ananya Payan DO GCA (giant cell arteritis); PMR (polymyalgia rheumatica) 04/22/2024 [place] [address] Thony Dee MD from Last 3 Months Social History Tobacco Use Types Packs/Day Years Used Date Smoking Tobacco: Former Cigarettes Q uit: 06/09/1986 Smokeless Tobacco: Never Alcohol Use Standard Drinks/Week Comments Yes 0 (1 standard drink = 0.6 oz pur e alcohol) Sex and Gender Information Value Date Recorded Sex Assigned at Not on file Gender Identity Not on file Sexual Orientation Not on file Last Filed Vital Signs Vital Sign Reading Time Taken Comments Blood Pressure 127/56 05/31/2023 9:10 AM EDT Pulse 60 05/31/2023 9:10 AM EDT Temperature 36.2 ??C (97.2 ??F) 05/31/2023 9 :10 AM EDT Respiratory Rate 16 05/31/2023 9:10 AM EDT Oxygen Saturation 100% 05/31/2023 9:1 0 AM EDT Inhaled Oxygen Concentration - - Weight 72.6 kg (160 lb) 05/31/2023 9:10 AM EDT Height 170.2 cm (5' 7) 09/14/2022 9:59 AM EDT patient reported Body Mass Index 25.06 09/14/2022 9:59 AM EDT Plan of Treatment Health Maintenance Due Date Last Done Comments CT Colonography 1948 Colonoscopy 1948 Colorectal Cancer Screening 1948 FIT DNA 1948 FIT 1948 Sigmoidoscopy (10 year) with FIT yearly 1948 Sigmoidoscopy 1948 Tdap adult 1967 Tetanus vaccine 1967 Zoster vaccine (1 of 2) 1998 Advance Directive 2003 AAA Screen 2013 Pneumoccocal Vaccine: 65+ (1 of 1 - PCV) 2013 Covid-19 Vaccine (1 - 2022-24 season) 2023 Influenza (Flu) vaccine (1 o f 1 - Influenza standard series) 07/27/2024 Lipid Screening 05/31/2028 05/31/2023 Hepatitis C Screening Completed 01/23/2023 Goals Goal Patient Goal Type Associated Problems Recent Progress Patient-Stated? Author DH Self-Management Patient Facing Action Plan No Danica Taylor, [facility] Note: Judson Patel Jr. Is hoping to decrease his prednisone dosage and keep pain levels at a minimum. He is hoping that Actemra will be able to keep him walking since before prednisone he had a hard time standing up and walking around. Procedures Procedure Name Priority Date/Time Associated Diagnosis Comments LIPID PANEL (REFLEX DIRECT LDL) Routine 05/31/2023 10:18 AM EDT GCA (giant cell arteritis) Immunosuppressed status Medication monitoring encounter Hyperlipidemia, unspecified hyperlipidemia type HC HEPATITIS C ANTIBODY Routine 01/23/2023 9:59 AM EST GCA (giant cell arteritis) Immunosuppressed status from Last 3 Months or Most Recently Relevant to Health Maintenance Results * Lipid Panel (Reflex Direct LDL) (05/31/2023 10:18 AM EDT) Chol, Total 239 mg/dL [facility] Comment: Lower Risk: <200 mg/dL Average Risk: 200-239 mg/dL Higher Risk: >ws=365 mg/dL Triglycerides 191 mg/dL [facility] Comment: Average Risk/Lower Risk: <150 mg/dL Borderline High Risk: 150-199 mg/dL High Risk: 200-499 mg/dL Very High Risk: >ik=029 mg/dL HDL 51 mg/dL [facility] Comment: Males: ?? Higher Risk: <40 mg/dL Females: ?? Higher Risk: <50 mg/dL LDL Cholesterol 150 mg/dL [facility] Comment: Lowest Risk: <100 mg/dL Lower Risk: 100-129 mg/dL Borderline High Risk: 130-159 mg/dL High Risk: 160-189 mg/dL Very High Risk: >te=154 mg/dL Chol/HDL Ratio 4.7 ratio [facility] Lipid Interpretation See Note [facility] Comment: Lipid management should be guided by a patient? s ASCVD risk, goals and preferences. ACC/AHA Guidelines recommend high intensity statin if clinical ASCVD or LDL greater than or equal to 190 mg/dL. http://[email or web address]/NOS-LIA-Qalhstshh Adults aged 40-75 with LDL 70-189 mg/dL should have their 10 year ASCVD risk estimated with the ACC/AHA ASCVD risk tamale maker http://tools.acc.org/WYXGD-Reyr-Mbrauviqf/ Statin should be discussed if risk greater [...] Lab Junior Bernard MD CHEMISTRY ORDERABLE S [facility] [place] [address] * Hepatitis C Antibody (01/23/2023 9:59 AM EST) Hepatitis C Ab Negative Negative [facility] Blood 01/23/2023 9:59 AM EST 01/23/2023 10:08 AM EST Narrative Resulting Agency Comment Spec In Lab Linda Shaikh DO IMMUNOLOGY ORDERAB LES Performing Organization Address [facility] Co de Phone Number [facility] [place] [address] from Last 3 Months or Most Recently Relevant to Health Maintenance Care Teams Ceramic Tile Setter Relationship Specialty Start Date End Date Yesy Nagy APRN [address] [place], [place] [address] [address] PCP - General Geriatric Medicine 08/02/22
--- OUTSIDE RECORDS SUMMARY | 2024-06-19 02:35 | XMS_ITS | Encounter Summary ---
Author Organization [facility] Address [facility] [place] [address] Care Team Providers Care Product Handler Name Role Phone Yesy Nagy APRN Primary Care Provider +1- [phone] Reason for Visit * Reason Onset Date Comments Medication Refill 05/27/2024 Encounter Details Date Type Department Care Team (Late st Contact Info) Description 05/27/2024 Refill Rheumatology at [facility] [place] [address] Ananya Payan DO [facility] [place] [address] GCA (giant cell arteritis); PMR (polymyalgia rheumatica) [...] Telephone Encounter - Landy Monson RN - 05/27/2024 3:43 PM EDT Patient requesting refills of Prednisone 5 mg and Prednisone 2.5 mg (takes 3 tablets). Nurse will pend to the provider. Looks like may need appointment,labs? Last seen 01/17/[address] Ananya Payan DO. * Telephone Encounter - Aleida Rodríguez - 05/27/2024 8:55 AM EDT NAME OF MEDICATION AND DOSE: predniSONE (Deltasone) 5 mg tablet - Take 1 tablet by mouth daily. predniSONE (Deltasone) 2.5 mg tablet Take 3 tablets by mouth daily., dose and frequency as stated in medication list. PHARMACY NAME:[id number] [place], [place] - [address] [place] [address] P: [phone] PHARMACY PHONE: [phone] Would patient like script sent directly to pharmacy? (Yes or no) yes Would patient like to fish bait picker paper script here at our office (Please put yes or no) no Would patient like paper script mailed to home address (Please put yes or no) no Patient will be out of medication tomorrow and would like to fish bait picker Caller/Patient aware of 1-2 business day process. documented in this encounter Plan of Treatment Not on file documented as of this encounter Goals Goal Patient Goal Type Associated Problems Recent Progress Patient-Stated? Author DH Self-Management Patient Facing Action Plan No Danica Taylor, [facility] Note: Judson Robe Patel Jr. Is [...] rheumatica documented in this encounter Care Teams Product Handler Relationship Specialty Start Date End Date Yesy Nagy APRN [address] [place] [address] PCP - General Geriatric Medicine 08/02/22 documented as of this encounter
--- OUTSIDE RECORDS SUMMARY | 2024-06-19 02:35 | XMS_ITS | Encounter Summary ---
Author Organization [facility] Address [facility] [place] [address] Care Team Providers Care Fuel Cell Binder Name Role Phone Yesy Nagy APRN Primary Care Provider Encounter Details Date Type Department Care Team (Late st Contact Info) Description 01/04/2024 [place] [address] Landy Monson RN Social History [...] encounter Miscellaneous Notes * Telephone Encounter - Lydia Woody MD - 01/08/2024 2:09 PM EST Telephone Note: Called patient to discuss temporal tenderness when he decreased prednisone from 7 mg down to 5 mg. Patient then increased prednisone to 7 mg and doing well. He has permanently relocated to [place]. I informed him that it would be best to establish care there but for now will schedule a follow up with Dr. Payan - telehealth visit to discuss ongoing care (no follow up on file). Discussed alternating between doses od prednisone to see he if can successful taper off. Lydia Woody * Telephone Encounter - Landy Monson RN - 01/04/2024 1:26 PM EST RTC to the patient Call returned to pt regarding message left with the call center. Pt reported that he is currently having some balance issues. Pt reported that he is experiencing weakness (mainly in his legs) and is balance is poor. Pt reported that he was able to get around No problems with urine/bowels. Takes Flomax for the enlarged Prostate. Tried to decrease to 5 mg Prednisone and started to have TORRES,anabaptism mild pain, so increased back to 7 mg daily. This is much better. States he has good days/bad days. Visiting sister in [place] currently. Balance not good and motor skills not great walking. The patient was reading about this GCA, and states he read it can worsen, be fatal. The other day he states he saw a green line, but was transient.Denied other visual symptoms. No symptoms currently with the vision. States he has scalp sensitive, fleeting headaches(sharp pain few seconds then goes away). Denied eye symptoms. Denied jaw claudication. Adventism pain now(when 5 mg was tender) but not now. Pt denied trouble chewing and no blurry vision at this time. Patient denied joint pain.Nothing red,warm nor swollen. Denied f/c/n/v/d and has been eating healthy, and not sick. No cold symptoms. Has been seeing his sister in [place] Asked about if studies available and maybe more medications available. Anxious to know if new things, and want to talk to Dr Schuyler DO. * Telephone Encounter - Landy Monson RN - 01/04/2024 1:25 PM EST Copied from [facility] #[id number]. Topic: Specialty Dept CRMs - Triage >> Jan 04, 2024 10:33 AM Justo Sanford wrote: Triage Message Specialist: Ananya Payan DO Relationship (if other than patient-full name): Patient Symptom: Poor Balance, Labored Walking Has patient experienced symptom before Yes If patient has experienced symptom before, when was the last time this occurred unsure Is patient currently having symptom Yes When did symptom begin Additional Comments: Patient calling to discuss current symptoms with and see if possible to get in with her for appointment. Please call to advise documented in this encounter Plan of Treatment Not on file documented as of this encounter Goals Goal Patient Goal Type Associated Problems Recent Progress Patient-Stated? Author DH Self-Management Patient Facing Action Plan No Danica Taylor, [facility] Note: Judson Patel Jr. Is hoping to decrease his prednisone dosage and keep pain levels at a minimum. He is hoping that Actemra will be able to keep him walking since before prednisone he had a hard time standing up and walking around. documented as of this encounter Visit Diagnoses Not on filedocumented in this encounter Care Teams Fuel Cell Binder Relationship Specialty Start Date End Date Yesy Nagy APRN [address] [place] [address] PCP - General Geriatric Medicine 08/02/22 documented as of this encounter
--- OUTSIDE RECORDS SUMMARY | 2024-06-19 02:35 | XMS_ITS | Encounter Summary ---
Author Organization [facility] Address [facility] [place] [address] Care Team Providers Care Motor Express Clerk Name Role Phone Yesy Nagy APRN Primary Care Provider Encounter Details Date Type Department Care Team (Late st Contact Info) Description 05/08/2023 Telephone [place] [id number] Ananya Payan DO [facility] [place] [address] Social History Tobacco Use Types Packs/Day Years [...] Telephone Encounter - Ananya Payan DO - 05/08/2023 9:31 AM EDT Left message - follow up cellulitis of the finger to ensure it is healing. Pt currently holding tocilizumab. - plan to resume the tocilizumab if infection has resolved. documented in this encounter Plan of Treatment Not on file documented as of this encounter Goals Goal Patient Goal Type Associated Problems Recent Progress Patient-Stated? Author BRYAN Self-Management Patient Facing Action Plan No Danica Taylor, [facility] Note: Judson Patel Jr. Is hoping to decrease his prednisone dosage and keep pain levels at a minimum. He is hoping that Actemra will be able to keep him walking since before prednisone he had a hard time standing up and walking around. documented as of this encounter Visit Diagnoses Not on filedocumented in this encounter Care Teams Motor Express Clerk Relationship Specialty Start Date End Date Yesy Nagy APRN [address] [place] [address] PCP - General Geriatric Medicine 08/02/22 documented as of this encounter
--- OUTSIDE RECORDS SUMMARY | 2024-06-19 02:35 | XMS_ITS | Encounter Summary ---
Author Organization [facility] Address [facility] [place] [address] Care Team Providers Care Senior Court Office Assistant Name Role Phone Yesy Nagy APRN Primary Care Provider +1- [phone] Encounter Details Date Type Department Care Team (Late st Contact Info) Description 06/29/2023 Telephone Dermatology at [facility] [address] [place] [address] Rafa Rachel MD [facility] DR CARISSA [place] [address] Social History Tobacco Use Types Packs/Day Years [...] encounter Miscellaneous Notes * Telephone Encounter - Rafa Rachel MD - 06/29/2023 4:45 PM EDT Non-life threatening condition. Will have patient schedule follow-up in clinic to discuss further * Telephone Encounter - Vannessa Mahan - 06/29/2023 1:18 PM EDT Judson Patel Jr. left a voicemail stating that in his visit with Dr. Rachel on 05/23 he was prescribed a medication for 'fungus on his finger'. He stated that he finished the medication on 06/11 and he feels that his finger is worsening again. documented in this encounter Plan of Treatment Not on file documented as of this encounter Goals Goal Patient Goal Type Associated Problems Recent Progress Patient-Stated? Author DH Self-Management Patient Facing Action Plan No Danica Taylor, [facility] Note: Judson Robe Patel Jr. Is hoping to decrease his prednisone dosage and keep pain levels at a minimum. He is hoping that Actemra will be able to keep him walking since before prednisone he had a hard time standing up and walking around. documented as of this encounter Visit Diagnoses Not on filedocumented in this encounter Care Teams Senior Court Office Assistant Relationship Specialty Start Date End Date Yesy Nagy APRN [address] [place] [address] PCP - General Geriatric Medicine 08/02/22 documented as of this encounter
--- OUTSIDE RECORDS SUMMARY | 2024-06-19 02:35 | XMS_ITS | Encounter Summary ---
[place] [address] Care Team Providers Care Fish Bait Picker Name Role Phone Yesy Nagy APRN Primary Care Provider +1- [phone] Reason for Referral * Consultation (Routine) - Authorized Specialty Diagnoses / Procedures Referred By Contac t Referred To Contact Rheumatology Diagnoses GCA (giant cell arteritis) PMR (polymyalgia rheumatica) Ananya Payan [facility] [place] [address] Referral ID Status Reason Start Date Expiration Date Visits Requested Visits Authorized [id number] Authorized Consult, Test & Treat 01/17/2024 07/15/2024 1 1 Encounter Details Date Type Department Care Team (Latest Contact Info) Description 01/17/2024 10:00 AM EST TH Visit (TeleHealth) [place] [address] Ananya Payan, [facility] [place] [address] GCA (giant cell arteritis); PMR (polymyalgia rheumatica) [...] as of this encounter Progress Notes * Ananya Payan DO - 01/17/2024 10:00 AM EST Rheumatology Outpatient Telephone Follow Up Note PCP: Yesy Nagy APRN Judson Patel Jr. is a 73 y.o. male who we are seeing for the continuing management of GCA. At the outset of this visit, I made them aware that this telephone visit may be billed similar to aclinic visit to him or his insurance company. Mr. Patel were in agreement to continue this visit. Total telephone visit time: [id number] for a total 30 minutes. - pt does not have computer or smart phone to due video visit Rheum History: #GCA -Symptoms began in April [...] infectionX2- fungal- tx with ABX. - Stopped Actemra- due to recurrent infections, continued Prednisone 4mg daily, taper 1 mg monthly - 07/18: when tapered to 2mg -possible flare, sxs of gait imbalance, weakness. Mildly elevated inflammatory markers- prednisone increased to 10 mg with improvement in sxs. - currently on Prednisone 7 mg daily - moving to [place] will refer to establish care with new rheumatology, can discuss medication option towean off prednisone #vison changes- yellow discoloration - Following with outside eye clinic - resolved. -DEXA- 09/17: normal Interval History: Reported developed jew pain, TORRES on 5 mg prednisone- increased on own back to 7 mg with improvement in sxs. - Report he has been doing well on 7mg daily of prednisone - no TORRES, jew pain, joint pain, morning stiffness, vision changes. - no fever, chills - reports he is moving to [place] to live with his sister in [facility]. Pt reports he grew up in [place]. ROS (positives in bold): Gen: no fevers, no chills, no night sweats Pulm: no SOB CV: no CP Abd: no abd pain, no nausea, no vomiting, no diarrhea MSK: see HPI Meds and Allergies: Reviewed in eDH Labs/Studies: Reviewed. Assessment/Plan: 72-year-old male with past medical history of hypertension, BPH, peripheral neuropathy presenting for follow-up of GCA/PMR. GCA/PMR initially diagnosed July 2022 with sxs of headaches, joint pain, joint stiffness, gaitinstability in the setting for elevated inflammatory markers. He was treated with high dose steroids Prednisone 60 mg daily with the plan to taper off over 52 weeks. No biopsy obtain as pt had been on steroids for 3 months at time of initial consult. MRI negative. December 2021 had recurrent headaches, mildly elevated inflammatory markers with sed rate of 51, CRP of 5.2. He was started on Actemraand increase prednisone to 30 mg and tapered per giacta 26 week schedule. Actemra as stopped 04/17 due to recurrent cellulitis. June 2023 he had possible flare on prednisone 2 mg with sxs of increase weakness, gait imbalance, mild elevation of inflammatory markers. Sxs improved when prednisone wasincreased to 10 mg daily. At last visit Pt was on prednisone 7 mg, he recently had COVID so inflammatory markers were not checked. Reports flares when tapering below 7 mg daily. As pt is moving, willkeep him on this dose until he is able to transfer care and establish with new Director Script in [place]. Referral sent to Rheumatology as that is the closest Director Script. Would consider,MTX, Orencia as steroid spearing agent. Will order inflammatory markers today. Plan - Continue Prednisone 7.5 mg daily - ordered CRP, ESR - Discuss DMARD steroid sparing options to start when you establish care in [place] - Referral sent to [facility] today as pt is moving to [place]. - follow up if needed. Patient was discussed with Dr. Luis Payan DO Rheumatology Fellow Pager: [phone] * Pravin Smith MD - 01/17/2024 10:00 AM EST Attending Addendum The patient had a TeleHealth visit with Dr. Ananya Payan, rheumatology fellow I. We reviewed the patient's interval history and Dr. Payan's management plan. I agree with Dr. Payan's assessment and plan. I did not directly interact with the patient. Pravin Smith MD Staff Director Script documented in this encounter Plan of Treatment Scheduled Orders Name Type Priority Associated Diagnoses Orde r Schedule Sedimentation rate Lab Routine GCA (giant cell arteritis) PMR (polymyalgia rheumatica) Expected: 01/24/2024 (Approximate), Expires: 07/25/2024 CRP, acute inflammation Lab Routine GCA (giant cell arteritis) PMR (polymyalgia rheumatica) Expected: 01/24/2024, Expires: 07/25/2024 Scheduled Referrals Name Type Priority Associated Diagnoses Order Schedule Referral to Rheumatology Outpatient Referral Routine GCA (giant cell arteritis) PMR (polymyalgia rheumatica) Ordered: 01/17/2024 documented as of this encounter Goals Goal Patient Goal Type Associated Problems Recent Progress Patient-Stated? Author DH Self-Management Patient Facing Action Plan No Danica Taylor, [facility] Note: Judson Patel Jr. Is [...] rheumatica documented in this encounter Care Teams Fish Bait Picker Relationship Specialty Start Date End Date Yesy Nagy APRN [address] [place] [address] PCP - General Geriatric Medicine 08/02/22 documented as of this encounter
--- OUTSIDE RECORDS SUMMARY | 2024-06-19 02:35 | XMS_ITS | Encounter Summary ---
Author Organization [facility] Address [facility] [place] [address] Care Team Providers Care Internal Salesperson Name Role Phone Yesy Nagy APRN Primary Care Provider [phone] Reason for Visit * Reason Comments Specialty Pharmacy Review Tocilizumab (A ctemra) Actpen 162mg/0.9mL Encounter Details Date Type Department Care Team (Late st Contact Info) Description 05/31/2023 Specialty [place] [address] Yuliya Booker, [facility] Social History Tobacco Use Types Packs/Day Years [...] as of this encounter Progress Notes * Yuliya Booker - 05/31/2023 11:59 PM EDT [facility] has completed a benefits investigation for Judson Patel Jr. to review their eligibility to fill at [facility]. Per patient's medication list they are prescribed Actemra and the medication is able to be filled at the [facility] but is not currently on Actemra. documented in this encounter Plan of Treatment Not on file documented as of this encounter Goals Goal Patient Goal Type Associated Problems Recent Progress Patient-Stated? Author DH Self-Management Patient Facing Action Plan No Danica Taylor, [facility] Note: Judson Patel Jr. Is hoping to decrease his prednisone dosage and keep pain levels at a minimum. He is hoping that Actemra will be able to keep him walking since before prednisone he had a hard time standing up and walking around. documented as of this encounter Visit Diagnoses Not on filedocumented in this encounter Care Teams Internal Salesperson Relationship Specialty Start Date End Date Yesy Nagy APRN [address] [place] [address] PCP - General Geriatric Medicine 08/02/22 documented as of this encounter
--- OUTSIDE RECORDS SUMMARY | 2024-06-19 02:35 | XMS_ITS | Encounter Summary ---
Author Organization [facility] Address [address] [place] [address] Care Team Providers Care Stone Polisher Name Role Phone Unknown, Provider Primary Care Provider [phone] Unknown, Provider Unavailable [phone] Encounter Details Date Type Department Care Team (Late st Contact Info) Description 05/14/2023 Lab Requisition [facility] Pathology & Laboratory Medicine - [facility] [address] [place] [address] Outr Resulting Lab, Provider Social History Tobacco [...] Diagnosis Comments ZZFUNGUS CULTURE, BLOOD Routine 05/14/2023 12:10 EDT documented in this encounter Results * FUNGUS CULTURE, BLOOD (05/14/2023 12:10 EDT) Organism ID No fungi isolated 06/12/2023 7:44 EDT [facility] Blood VENOUS BLOOD / Unknown 05/14/2023 12:10 EDT 05/14/2023 17:19 EDT Provider Outr Resulting Lab MICROBIOLOGY - GENERAL ORDERABLES [facility] [address] [place] [address] documented in this encounter Visit Diagnoses Not on filedocumented in this encounter Care Teams Stone Polisher Relationship Specialty Start Date End Date Unknown, Provider, PCP - General 11/10/15 Unknown, ProviderMD 11/10/15 documented as of this encounter
--- OUTSIDE RECORDS SUMMARY | 2024-06-19 02:35 | XMS_ITS | Encounter Summary ---
Author Organization [facility] Address [address] [place] [address] Care Team Providers Care Lining Maker Hand Name Role Phone Unknown, Provider Primary Care Provider [phone] Unknown, Provider Unavailable [phone] Encounter Details Date Type Department Care Team (Late st Contact Info) Description 08/18/2022 Lab Requisition [facility] Pathology & Laboratory Medicine - [address] [address] Outr Resulting Lab, Provider Social History Tobacco [...] RNA BY PCR Routine 08/18/2022 9:08 EDT HEPATITIS B CORE ANTIBODY (TOTAL) Routine 08/18/2022 9:08 EDT HEPATITIS B SURFACE ANTIBODY Routine 08/18/2022 9:08 EDT HEPATITIS B SURFACE ANTIGEN Routine 08/18/2022 9:08 EDT documented in this encounter Results * HEPATITIS B SURFACE ANTIBODY (08/18/2022 9:08 EDT) Hep B Surface Ab, Quantitative <3.1 See Note mIU/mL 08/21/2022 9:39 EDT [facility] Comment: Reference Range for Hep B Surface Ab, Quant: Positive: >= 10.0 mIU/mL Negative: ??< 10.0 mIU/mL Patient is presumed to not be immune to infection with Hepatitis B Virus. Hep B Surface Ab, Qualitative Negative See Note 08/21/2022 9:39 EDT [facility] Comment: Reference Range for Hep B Surface Ab, Qual: Unvaccinated: ??Negative Vaccinated: ??Positive Blood VENOUS BLOOD / Unknown 08/18/2022 9:08 EDT 08/18/2022 18:19 EDT Provider Outr Resulting Lab CHEMISTRY & BLOOD GAS ORDERABLES Performing Organization Address City/[facility]/ZIP Co de Phone Number [facility] [address] [place] [address] * HEPATITIS B CORE ANTIBODY (TOTAL) (08/18/2022 9:08 EDT) Hepatitis B Core Ab, Total Negative Negative 08/21/2022 10:23 EDT [facility] Blood VENOUS BLOOD / Unknown 08/18/2022 9:08 EDT 08/18/2022 18:19 EDT Provider Outr Resulting Lab CHEMISTRY & BLOOD GAS ORDERABLES Performing Organization Address [facility] Co de Phone Number [facility] [address] [place] [id number] * HEPATITIS B SURFACE ANTIGEN (08/18/2022 9:08 EDT) Hep B Surface Ag Negative Negative 08/21/2022 9:36 EDT [facility] Blood VENOUS BLOOD / Unknown 08/18/2022 9:08 EDT 08/18/2022 18:19 EDT Provider Outr Resulting Lab CHEMISTRY & BLOOD GAS ORDERABLES Performing Organization Address [facility]/ZIP Co de Phone Number [facility] [address] [place] [address] * HEPATITIS C AB W REFLEX TO HCV RNA BY PCR (08/18/2022 9:08 EDT) Hep C Antibody Negative Negative 08/21/2022 10:26 EDT [facility] Blood VENOUS BLOOD / Unknown 08/18/2022 9:08 EDT 08/18/2022 18:19 EDT Provider Outr Resulting Lab CHEMISTRY & BLOOD GAS ORDERABLES Performing Organization Address City/State/[facility] Co de Phone Number [facility] [address] [place] [address] documented in this encounter Visit Diagnoses Not on filedocumented in this encounter Care Teams Lining Maker Hand Relationship Specialty Start Date End Date Unknown, Provider, PCP - General 11/10/15 Unknown, ProviderMD 11/10/15 documented as of this encounter
--- OUTSIDE RECORDS SUMMARY | 2024-06-19 02:35 | XMS_ITS | Encounter Summary ---
Author Organization [facility] Address [address] [place] [address] Care Team Providers Care Porcelain Buildup Assistant Name Role Phone Unknown, Provider Primary Care Provider [phone] Unknown, Provider Unavailable [phone] Encounter Details Date Type Department Care Team (Late st Contact Info) Description 08/19/2022 Lab Requisition [facility] Pathology & Laboratory Medicine - [address] [address] Outr Resulting Lab, Provider Social History Tobacco [...] Procedure Name Priority Date/Time Associated Diagnosis Comments QUANTIFERON MITOGEN (PERFORMABLE) Today 08/18/2022 9:08 EDT QUANTIFERON TB2 (PERFORMABLE) Today 08/18/2022 9:08 EDT QUANTIFERON TB1 (PERFORMABLE) Today 08/18/2022 9:08 EDT QUANTIFERON NIL (PERFORMABLE) Today 08/18/2022 9:08 EDT QUANTIFERON INTERPRETATION (PERFORMABLE) Today 08/18/2022 9:08 EDT QUANTIFERON TB GOLD PLUS Routine 08/18/2022 9:08 EDT documented in this encounter Results * QUANTIFERON INTERPRETATION (PERFORMABLE) (08/18/2022 9:08 EDT) Quantiferon Interpretation Negative Negative 08/21/2022 14:00 EDT [facility] Comment:No interferon-gamma response to M. tuberculosis antigens was detected. ??Infection with M. tuberculosis is unlikely. A single negative result does not exclude infection with M. tuberculosis. ??In patients at high risk for M. tuberculosis infection, a second test should be considered. TB1 Ag minus Nil 0.13 IU/ml 08/21/20 14:00 EDT [facility] TB2 Ag minus Nil 0.09 IU/mL 08/21/20 14:00 EDT [facility] Blood VENOUS BLOOD / Unknown 08/18/2022 9:08 EDT 08/21/2022 13:39 EDT Narrative [facility] - 08/21/2022 14:00 EDT Results were obtained with the [employer] QuantiFERON-TB Gold Plus CLIA. New platform in use 08/03/2021 Provider Outr Resulting Lab IMMUNOLOGY A ND SEROLOGY ORDERABLES Performing Organization Address [facility] de Phone Number [facility] [address] [place] [address] * QUANTIFERON MITOGEN (PERFORMABLE) (08/18/2022 9:08 EDT) Blood VENOUS BLOOD / Unknown 08/18/2022 9:08 EDT 08/20/2022 15:42 EDT Provider Outr Resulting Lab IMMUNOLOGY A ND SEROLOGY ORDERABLES Performing Organization Address City/[facility]/ZIP Co de Phone Number [facility] [address] [place] [address] * QUANTIFERON TB2 (PERFORMABLE) (08/18/2022 9:08 EDT) Blood VENOUS BLOOD / Unknown 08/18/2022 9:08 EDT 08/20/2022 15:42 EDT Provider Outr Resulting Lab IMMUNOLOGY A ND SEROLOGY ORDERABLES Performing Organization Address [facility] Co de Phone Number [facility] [address] [place] [address] * QUANTIFERON TB1 (PERFORMABLE) (08/18/2022 9:08 EDT) Blood VENOUS BLOOD / Unknown 08/18/2022 9:08 EDT 08/20/2022 15:42 EDT Provider Outr Resulting Lab IMMUNOLOGY A ND SEROLOGY ORDERABLES Performing Organization Address [facility] de Phone Number [facility] [address] [place] [address] * QUANTIFERON NIL (PERFORMABLE) (08/18/2022 9:08 EDT) Blood VENOUS BLOOD / Unknown 08/18/2022 9:08 EDT 08/20/2022 15:42 EDT Provider Outr Resulting Lab IMMUNOLOGY A ND SEROLOGY ORDERABLES Performing Organization Address [facility] Co de Phone Number [facility] [address] [place] [address] documented in this encounter Visit Diagnoses Not on filedocumented in this encounter Care Teams Porcelain Buildup Assistant Relationship Specialty Start Date End Date Unknown, Provider, PCP - General 11/10/15 Unknown, ProviderMD 11/10/15 documented as of this encounter
--- OUTSIDE RECORDS SUMMARY | 2024-06-19 02:35 | XMS_ITS | Encounter Summary ---
Author Organization [facility] [place] [address] Care Team Providers Care It Assistant Name Role Phone Yesy Nagy APRN Primary Care Provider Encounter Details Date Type Department Care Team (Late st Contact Info) Description 07/19/2023 Telephone [place] [address] Dayna Paez, RN Social History Tobacco Use Types Packs/Day [...] Telephone Encounter - Ananya Payan DO - 07/19/2023 4:07 PM EDT On 2 mg, felt worse, difficulty walking, albert imbalance. Inflammatory markers were elevated - better now on 10 mg prednisone- base to baseline - Will plan to continue 10 mg daily X 2 weeks, then taper slow, 9mg daily X 2 week, 8 mg X 2 week, 7 mg X 2 week, 6 mg X 2 week and then stay on 5 mg daily - pt in agreement with plan. * Telephone Encounter - Dayna Paez RN - 07/19/2023 3:59 PM EDT Copied from CRM #[id number]. Topic: Specialty Dept CRMs - Generic Call >> Jul 19, 2023 3:36 PM Manjula Mcqueen wrote: Specialist: Ananya Payan, DO Relationship (if other than patient-full name): self Reason for Call: Patient returning providers call from today. Please call to advise. documented in this encounter Plan of Treatment Not on file documented as of this encounter Goals Goal Patient Goal Type Associated Problems Recent Progress Patient-Stated? Author DH Self-Management Patient Facing Action Plan No Dnaica Taylor, [facility] Note: Judson Robe Patel Jr. Is hoping to decrease his prednisone dosage and keep pain levels at a minimum. He is hoping that Actemra will be able to keep him walking since before prednisone he had a hard time standing up and walking around. documented as of this encounter Visit Diagnoses Not on filedocumented in this encounter Care Teams It Assistant Relationship Specialty Start Date End Date Yesy Nagy APRN [address] [place] [address] PCP - General Geriatric Medicine 08/02/22 documented as of this encounter
--- OUTSIDE RECORDS SUMMARY | 2024-06-19 02:35 | XMS_ITS | Encounter Summary ---
Author Organization [facility] Address [facility] [place] [address] Care Team Providers Care Sounding Device Operator Name Role Phone Yesy Nagy APRN Primary Care Provider [phone] Encounter Details Date Type Department Care Team (Late st Contact Info) Description 07/19/2023 Telephone [place] [id number] Ananya Payan DO [facility] [address] Social History Tobacco Use Types Packs/Day Years [...] Encounter - Ananya Payan DO - 07/19/2023 3:13 PM EDT Left message -after discussion with me last week PCP increase prednisone to 10mg. - pt had not been feeling well, increase gait imbalance, weakness. Inflammatory markers were mildlyelevated - - Call to see how patient was doing with increase dose of prednisone. documented in this encounter Plan of Treatment Not on file documented as of this encounter Goals Goal Patient Goal Type Associated Problems Recent Progress Patient-Stated? Author BRYAN Self-Management Patient Facing Action Plan No Danica Taylor, [facility] Note: Judson Patel Jr. Is hoping to decrease his prednisone dosage and keep pain levels at a minimum. He is hoping that Actemra will be able to keep him walking since before prednisone he had a hard time standing up and walking around. documented as of this encounter Visit Diagnoses Not on filedocumented in this encounter Care Teams Sounding Device Operator Relationship Specialty Start Date End Date Yesy Nagy APRN [address] [place] [address] PCP - General Geriatric Medicine 08/02/22 documented as of this encounter
--- OUTSIDE RECORDS SUMMARY | 2024-06-19 02:35 | XMS_ITS | Encounter Summary ---
Author Organization [facility] [place] [address] Care Team Providers Care Massotherapist Name Role Phone Yesy Nagy APRN Primary Care Provider Encounter Details Date Type Department Care Team (Latest Contact Info) Description 05/31/2023 Travel Social History Tobacco Use Types Packs/Day [...] Facing Action Plan No Danica Taylor, [facility] Note: Judson Robe Patel Jr. Is hoping to decrease his prednisone dosage and keep pain levels at a minimum. He is hoping that Actemra will be able to keep him walking since before prednisone he had a hard time standing up and walking around. documented as of this encounter Visit Diagnoses Not on filedocumented in this encounter Care Teams Massotherapist Relationship Specialty Start Date End Date Yesy Nagy APRN [address] [place] [address] PCP - General Geriatric Medicine 08/02/22 documented as of this encounter
--- OUTSIDE RECORDS SUMMARY | 2024-06-19 02:35 | XMS_ITS | Encounter Summary ---
Author Organization [facility] Address [facility] [place] [address] Care Team Providers Care Paving Machine Operator Name Role Phone Yesy Nagy APRN Primary Care Provider [phone] Reason for Visit * Reason Comments Medication Refill Encounter Details Date Type Department Care Team (Late st Contact Info) Description 04/22/2024 Refill [place] [phone] Thony Dee MD [facility] [place] [address] Social History Tobacco Use Types Packs/Day Years [...] Type Associated Problems Recent Progress Patient-Stated? Author Self-Management Patient Facing Action Plan No Danica Taylor, [facility] Note: Judson Patel Jr. Is hoping to decrease his prednisone dosage and keep pain levels at a minimum. He is hoping that Actemra will be able to keep him walking since before prednisone he had a hard time standing up and walking around. documented as of this encounter Visit Diagnoses Not on filedocumented in this encounter Care Teams Paving Machine Operator Relationship Specialty Start Date End Date Yesy Nagy APRN [address] [place] [address] PCP - General Geriatric Medicine 08/02/22 documented as of this encounter
--- OUTSIDE RECORDS SUMMARY | 2024-06-19 02:35 | XMS_ITS | Encounter Summary ---
Author Organization [facility] [place] [address] Care Team Providers Care Storage Worker Name Role Phone Yesy Nagy APRN Primary Care Provider [phone] Reason for Visit * Reason Onset Date Comments Follow-up 06/21/2023 Encounter Details Date Type Department Care Team (Late st Contact Info) Description 06/21/2023 [place] [address] Dayna Paez, RN Follow-up Social History Tobacco Use Types Packs/Day Years [...] Miscellaneous Notes * Telephone Encounter - Dayna Peaz, RN - 06/21/2023 3:08 PM EDT Copied from [facility] #[id number]. Topic: Specialty Dept CRMs - Triage >> Jun 21, 2023 12:23 PM Aleida Rodríguez wrote: Triage Message Specialist: Schuyler Relationship (if other than patient-full name): Symptom: Patient stated he is having symptoms, would not go into detail Has patient experienced symptom before If patient has experienced symptom before, when was the last time this occurred Is patient currently having symptom yes When did symptom begin Additional Comments: Patient didn't want to go into detail and stated it wasn't urgent however would like to speak with Dr Payan I spoke with Judson and he reports that he is still battling the Finger fungus, however it is better. Reports he does have pain in his finger joints. Reports decreased mobility. Reports Artist'S Model told him he has dry eye and gave him some drops andscheduled for a more comprehensive exam on 07-06-23. Judson wants to speak with Dr. Payan directly, I advised that I will pass on this message to Dr. Payan. documented in this encounter Plan of Treatment Not on file documented as of this encounter Goals Goal Patient Goal Type Associated Problems Recent Progress Patient-Stated? Author DH Self-Management Patient Facing Action Plan No Danica Taylor, [facility] Note: Judson Patel . Is hoping to decrease his prednisone dosage and keep pain levels at a minimum. He is hoping that Actemra will be able to keep him walking since before prednisone he had a hard time standing up and walking around. documented as of this encounter Visit Diagnoses Not on filedocumented in this encounter Care Teams Storage Worker Relationship Specialty Start Date End Date Yesy Nagy APRN [address] [place] [address] PCP - General Geriatric Medicine 08/02/22 documented as of this encounter
--- OUTSIDE RECORDS SUMMARY | 2024-06-19 02:35 | XMS_ITS | Encounter Summary ---
Author Organization Counts Include [facility] Address [facility] [place] [address] Care Team Providers Care Director Of Pulmonary Unit Name Role Phone Yesy Nagy APRN Primary Care Provider Encounter Details Date Type Department Care Team (Latest Contact Info) Description 09/18/2023 4:00 PM EDT TH Visit (TeleHealth) [place] [id number] Ananya Payan DO [facility] [place] [address] GCA (giant cell arteritis) Social History Tobacco Use Types Packs/Day Years [...] Progress Notes * Ananya Payan DO - 09/18/2023 4:00 PM EDT Rheumatology Outpatient Follow Up Note PCP: MALACHI Vinson Jr. is a 72 y.o. male who we are seeing for the continuing management of GCA. This is a telemedicine visit that was performed with the originating site at that patients home address (please see electronic health record for applicable address) and the distant site at my home office. Verbal consent to participate in video/telephone visit was obtained by Ananya Payan DO or the rooming client account assistant as documented in their note. This visit occurred during the Coronavirus (COVID-19)Public Health Emergency. I discussed with the patient the nature of our telemedicine visits, that: ?? I would evaluate the patient and recommend diagnostics and treatments based on my assessment ?? Our sessions are not being recorded and that personal health information is protected ?? Our team would provide follow up care in person if/when the patient needs it The concept of Telemedicine has been described to the patient. Patient has been informed of the anticipated benefits and possible risks. Patient understands the information provided regarding telemedicine, has had the opportunity to ask questions about this information, and all questions have been answered to patient's satisfaction. Patient consents for the use of telemedicine in his/her medical care and authorizes the transmission of any relevant medical information to providers and their staff involved in patient's medical or mental health care. Rheum History: #GCA -Symptoms began in April [...] fungal- tx with ABX. - Stopped Actemra, continued Prednisone 4mg daily, taper 1 mg monthly - 07/18: when tapered to 2mg -possible flare, sxs of gait imbalance, weakness. Mildly elevated inflammatory markers- prednisone increased to 10 mg with improvement in sxs. taper by 1 mg every week, until 5 mg daily #vison changes- yellow discoloration - Following with outside eye clinic - resolved. Interval History: Patient reports diagnosed with COVID last week, was treated with Paxlovid feeling improved. -Reports no recurrence of headaches, visual symptoms, jaw claudication on 5 mg of prednisone. Feelsthat he is at his baseline. -Notes he does have intermittent gait imbalance but feels this is unrelated to GCA, symptoms have been stable. ROS (positives in bold): Gen: no fevers, [...] as stopped 04/17 due to recurrent cellulitis. Possible flare when taper prednisone at 2 mg with sxs of increase weakness, gait imbalance, mild elevation of inflammatory markers. Sxs improved when prednisone was increased to 10 mg daily. Patient has not tapered back down to 5 mg of prednisone without recurrence of symptoms. We will recheck inflammatory markers in 1 month, given recent COVID infection. If symptoms remain stable, inflammatory markers low, will continue to taper prednisone 1 mg/month-we will likely plan to hold 3 mg.For a steroid sparing therapy could also consider starting on Orencia or methotrexate. Orencia would have less immunosuppressive effect. -We will plan to obtain DEXA scan if this has not been done by PCP to evaluate for osteoporosis given long-term steroid use. Plan -Continue prednisone 5 mg -Labs in 1 month ESR CRP -We will obtain records from [facility] from recent admission to review -Recommend DEXA scan for osteoporosis due to long-term steroid use -Follow-up in 3 months Patient was discussed with Dr. Andres Payan DO Rheumatology Fellow Pager: [phone] documented in this encounter Plan of Treatment Not on file documented as of this encounter Goals Goal Patient Goal Type Associated Problems Recent Progress Patient-Stated? Author DH Self-Management Patient Facing Action Plan No Danica Taylor, [facility] Note: Judson Robe Patel Jr. Is hoping to decrease his prednisone dosage and keep pain levels at a minimum. He is hoping that Actemra will be able to keep him walking since before prednisone he had a hard time standing up and walking around. documented as of this encounter Visit Diagnoses Diagnosis GCA (giant cell arteritis) Giant cell arteritis documented in this encounter Care Teams Director Of Pulmonary Unit Relationship Specialty Start Date End Date Yesy Nagy APRN [address] [place] [address] PCP - General Geriatric Medicine 08/02/22 documented as of this encounter
--- OUTSIDE RECORDS SUMMARY | 2024-06-19 02:36 | XMS_ITS | Encounter Summary ---
Author Organization [facility] Address [facility] [place] [address] Care Team Providers Care Radiology Resident Name Role Phone Yesy Nagy APRN Primary Care Provider [phone] Reason for Visit * Reason Comments Medication Refill Medication Management Encounter Details Date Type Department Care Team (Late st Contact Info) Description 02/22/2023 Specialty [place] [address] Rico Garcia [facility] Social History Tobacco Use Types Packs/Day Years [...] as of this encounter Progress Notes * Rico Garcia [facility] - 02/22/2023 8:49 AM EDT Specialty Pharmacy Consultation; Rico Garcia [facility] Comprehensive Medication Management (CMM): Specialty Consult, Opt Out Judson Patel Jr. Diagnosis: Giant Cell Arteritis/Polymyalgia Rheumatica Therapy Start Date: 02/01/2023 Contact in person or via telephone: Telephone Mr. Judson Patel Jr. is a 72 y.o. (1950) male who was contacted in regard to specialty medication. Spoke with patient regarding ACTEMRA ACTPEN. A review of the medication therapy was performed. The medication was refilled as scheduled, and all medication related questions and concerns were addressed. The specialty pharmacy staff will follow up with the patient 7-10 days prior to next refill. Is the patient willing to proceed with the Clinical Assessment? No Summary and Recommendations: Mr. Judson Patel Jr. is a 72 y.o. male who was contacted for a refill and consultation on Actemra for the treatment of GCA/[place]. Medications, allergies, and medical conditions were reviewed with summer. The patient stated his first few injections went well without any issues or side effects. He confirmed proper storage and administration of the medication. He has not noted any changes in his disequilibrium yet but is aware of the timeline of efficacy for Actemra. Judson mentioned that he briefly saw a neurologist who suspects he may have Parkinson's. The patient will be undergoing further diagnostic testing in the coming weeks. Specialty Pharmacy will reach out to the patient for their next refill. Economic Assessment: Patient is agreeable to medication copay: Yes Copay Amount: $4.30 Day Supply: 28 Date Needed: 03/01/2023 Therapy Assessment: Appropriate Therapy: Yes Current Medication Dosing/Route/Frequency: Actemra Actpen 162mg/0.9mL SOAJ Inject the contents of one pen (162 mg) subcutaneously once a week Additional equipment/supplies required: no Care Plan Reviewed and Approved by Pharmacist : Yes Problem List: Patient Active Problem List Diagnosis Code ??? PMR (polymyalgia rheumatica) M35.3 Medications Reviewed: Yes Medications reconciled: No Allergies Reviewed:Yes Allergies reconciled: No Pharmacist follow-up needed: Yes Informed patient of specialty pharmacy services: Yes Welcome Packet and Rights and Responsibilities: Patient provided welcome packet/rights and responsibilities: Yes Date Confirmed: 02/22/23 Confirmation: Verbal -Patient is aware a licensed pharmacist is available 24 hours a day, 7 days a week to discuss medication-related questions or concerns: Yes -Patient verbalizes understanding of the common side effect profile of their medication. The patient is able to call 911 or seek urgent care if signs/symptoms of allergy or harmful adverse reactions occur: Yes Patient understands no changes to current drug regimen were made at the appointment and that the pharmacist is providing recommendations (summary located at top of note) for provider review and follow up. Rico Garcia RPH 02/22/23 9:06 AM documented in this encounter Plan of Treatment Not on file documented as of this encounter Goals Goal Patient Goal Type Associated Problems Recent Progress Patient-Stated? Author DH Self-Management Patient Facing Action Plan No [place], Danica M, [facility] Note: Judson Robe Patel Jr. Is [...] arteritis documented in this encounter Care Teams Radiology Resident Relationship Specialty Start Date End Date Yesy Nagy APRN [address] [place] [address] PCP - General Geriatric Medicine 08/02/22 documented as of this encounter
--- OUTSIDE RECORDS SUMMARY | 2024-06-19 02:36 | XMS_ITS | Encounter Summary ---
Author Organization [facility] [place] [address] Care Team Providers Care [place] Seamer Name Role Phone Yesy Nagy MALACHI Primary Care Provider [phone] Reason for Visit * Reason Comments Medication Management Patient Education Encounter Details Date Type Department Care Team (Late st Contact Info) Description 01/30/2023 Specialty [place] [phone] Danica Taylor [facility] Social History Tobacco Use Types [...] as of this encounter Progress Notes * Danica Taylor RPH - 01/30/2023 12:20 PM EST Images from the original note were not included. Specialty Pharmacy Initial Consultation; Danica Taylor [place] Comprehensive Medication Management (CMM) Judson Patel Jr. Diagnosis: Giant Cell Arteritis/ Polymyalgia Rheumatica Therapy Start Date: ~02/02/2023 Contact in person or via telephone: via telephone Mr. Judson Patel Jr. is a 72 y.o. (1950) male who was contacted in regard to specialty medication. Spoke with patient regarding Actemra . A review of the medication therapy was performed. The medication was Filled as scheduled, and all medication related questions and concerns were addressed. The specialty pharmacy staff will follow up with the patient 5-7 days prior to next refill. Is the patient willing to proceed with the Clinical Assessment? Yes Summary and Recommendations: Judson K Jorge Jr. was contacted via telephone for a review of Actemra for the treatment of giantcell arteritis. Patient is aware of the prior authorization process and timeline and was given [facility] contact information for any questions. Patient was educated on the Actemra warnings and precautions including the risk of serious infections, hypersensitivity, hematologic abnormalities, hepatic injury, hyperlipidemia, demyelinating disease, GI perforation, and malignancy. Patient was educated on the importance of infection prevention including best practices for hand hygiene and the annual flu vaccine. Discussed the need to avoid live vaccines during treatment. Dose hold parameters were reviewed including suspected/known infection,prescribed antibiotic therapy, or scheduled surgery. Patient agrees to contact the clinic to reviewdose hold in these settings. Educated patient on the potential side effects of Actemra including injection site reaction, increased cholesterol, increased liver enzymes, and infections such as URTI/sinusitis. Discussed with patient that it may take 3-4 months to experience the full benefit of Actemra. A review of dosing, storage, and administration was completed. Patient was educated on the dosing schedule, 162 mg subcutaneously every 7 days. Patient was made aware that Actemra must be stored in the refrigerator and remains stable at room temperature for 8 hours. Demonstration of injection technique was performed using Actemra training kit. Patient was advised on proper site rotation, site sterilization, and allowing the medication to reach room temperature prior to injection. Patient was able to demonstrate appropriate injection technique and required no remedial counseling. Patient was encouraged to schedule an injection teaching appointment if they prefer to have first injection completed with medical oversight and was directed to view additional online video resources if needed. Patient will be provided with a sharps container and disposal of pens was discussed. Clinic follow-up needed: yes - 02/06/[address] Payan Allergies and Drug intolerance: No Known Allergies Problem List: Patient Active Problem List Diagnosis Code ??? PMR (polymyalgia rheumatica) M35.3 Special Dietary or Hydration Requirements: no Medication Reconciliation Discrepancies (compared to [facility] med list) -none Medication List: Current Outpatient Medications Medication Sig Note Dispense Refill ??? metFORMIN XR (Glucophage XR) 500 mg Tablet Sustained Release 24 hr Take 500 mg by mouth daily. ??? hydrocortisone 2.5 % Cream APPLY TOPICALLY THREE TIMES A DAY NEEDED FOR SKIN IRRITATION/HEMMORRHOID ??? tocilizumab (Actemra ACTPen) 162 mg/0.9 mL Pen Injector Inject 0.9 mLs subcutaneously once a week. 3.6 mL 5 ??? predniSONE (Deltasone) 1 mg Tablet Take 10 tablets by mouth daily for 14 days, THEN 9 tablets daily for 28 days, THEN 8 tablets daily for 28 days, THEN 7 tablets daily for 28 days, THEN 6 tabletsdaily for 28 days. Further will be discussed at follow up 980 tablet 0 ??? amLODIPine (Norvasc) 5 mg Tablet amlodipine 5 mg tablet TAKE ONE TABLET BY MOUTH EVERY DAY ??? ZINC ORAL Take by mouth. ??? docosahexaenoic acid/epa (FISH OIL ORAL) Take by mouth. ??? Ascorbic Affv-Yurfdmplx-Sqf (Emergen-C) 1,000 mg Powder Effervescent in Packet Take by mouth. 01/30/2023: prn ??? VITAMIN B COMPLEX-100 ORAL Take by mouth. ??? tamsulosin (FLOMAX) 0.4 mg Capsule, Sust. Release 24 hr Take 0.4 mg by mouth daily. ??? aspirin 325 mg Tablet Take 325 mg by mouth daily. 09/14/2022: Doesn't take every day No current facility-administered medications for this visit. Most Recent Vitals: Ht Readings from Last 1 Encounters: 09/14/22 170.2 cm (5' 7) Wt Readings from Last 3 Encounters: 09/14/22 66 kg (145 lb 9.6 oz) 08/08/22 66.5 kg (146 lb 9.6 oz) 06/21/16 68 kg (150 lb) Temp Readings from Last 3 Encounters: 09/14/22 36.2 ??C (97.1 ??F) (Temporal) 06/21/16 36.9 ??C (98.5 ??F) (Oral) BP Readings from Last 3 Encounters: 09/14/22 149/63 08/08/22 141/69 06/21/16 146/64 Pulse Readings from Last 3 Encounters: 09/14/22 66 08/08/22 74 06/21/16 63 There is no height or weight on file to calculate BMI. Pertinent Lab values: Lab Results Component Value Date NA 130 (L) 08/08/2022 K 4.1 08/08/2022 CL 94 (L) 08/08/2022 CO2 24 08/08/2022 BUN 18 08/08/2022 CREATININE 0.95 08/08/2022 GLUCOSE 179 08/08/2022 CALCIUM 8.9 08/08/2022 Lab Results Component Value Date ALT 14 01/23/2023 AST 18 01/23/2023 ALKPHOS 64 01/23/2023 BILITOT 0.3 01/23/2023 BILIDIR 0.1 01/23/2023 ALBUMIN 4.2 01/23/2023 PROT 6.8 01/23/2023 Lab Results Component Value Date WBC 11.1 (H) 08/08/2022 HGB 13.1 (L) 08/08/2022 HCT 36.0 (L) 08/08/2022 MCV 91.8 08/08/2022 PLATELET 273 08/08/2022 Lab Results Component Value Date HA1C 6.0 (H) 06/21/2016 There is no immunization history on file for this patient. Assessment and Recommendations: Patient Counseling Patient informed of specialty services: Yes Patient accepted offer to tariff counsel: select all, adherence/missed doses, cost of medications/cost implications, doses and administration, possible drug/OTC drug and food interactions, possible adverse side effects and management, pharmacy contact information, lab monitoring/follow up, possible drug/Rx drug interactions, safe handling, storage, and disposal, therapeutic rationale Medication Management Summary Topics discussed: reviewed medication changes since last visit, medication safety precautions education provided, drug interaction education provided to patient, safe handling, storage, and disposal discussed, possible adverse effects and management discussed, lab monitoring and follow-up discussed, cost of medications and cost implications discussed, adherence and missed doses discussed, health goals discussed, monitoring medication discussed, over the counter products discussed, preventative care discussed, recommendations to doctor discussed, reminder to refill or garbage pick up man medication discussed, self-monitoring discussed, start medication discussed, stop medication discussed, timing of medications discussed, vaccination discussed, lifestyle modification education, referral needs discussed Time spent: 16-30 min Treatment Outcomes 01/30/2023 1221 Disease progression: Moderate Reviewed in detail with patient: Dose appropriateness based on recommended standard dosing Current medication list including OTC medications Medication and disease problems Allergies Comorbid conditions/ Problem List Past adverse events if any Special needs of the patient including physical and cognitive limitations Goals of therapy and management strategies Warnings, precautions, and contraindications Side effects Drug-drug and drug-food interactions Administration instructions including dose, frequency and method Handling, storage, and disposal Verifying expiration dates on products before use Rotating medication inventory to use oldest product first Relevant lab data Treatments impact on disease Dose appropriateness based on recommended standard dosing schedule, including any variations from FDA approved dosing Patient verbalizes understanding and is able to read-back instructions on self-administration/injection, proper storage, drug stability, importance of adherence and management strategies, side effect avoidance and mitigation strategies, and interruptions in therapy: Yes Patient is aware a licensed pharmacist is available 24 hours a day, 7 days a week to discuss medication-related questions or concerns: Yes Patient verbalizes understanding of the common side effect profile of their medication. The patient is able to call 911 or seek urgent care if signs/symptoms of allergy or harmful adverse reactions occur: Yes Additional care/services needed: Yes If yes, explain: injection teaching offered Additional equipment/supplies required: Yes If yes, explain: sharps container Patient satisfied with care/services provided: Yes Specialty Assessment: Physical and Cognitive Assessment: Functional limitations identified: No Cognitive limitations identified: No Concern regarding orientation/memory: No Concern with reasoning/judgement: No Is patient a fall risk: No Social Assessment: Does patient have a primary vehicle care specialist: No Does patient have an emergency contact on file: Yes Does patient need referral to social insurance specialist: No Does patient need referral to advocacy group: No Home Health Assessment: Is the patient in a safe home environment?: Yes Is the patient able to store their medication as directed?: Yes Does the patient have a support network at home?: Yes Reviewed potential home safety hazards with patient: Yes Economic Assessment: Patient is agreeable to medication copay: Yes Actual Copay: $: 4.3 Days Supply: 28 Welcome Packet and Rights and Responsibilities: Patient provided welcome packet/rights and responsibilities: Yes Specialty Med Adherence Therapy Assessment: View : No data to display. Current Medication Dosing/Route/Frequency: Actemra 162mg/0.9mL Actpen Inject the contents of 1 pen subcutaneously every 7 days Appropriate Therapy: Yes Current joints affected: none Current pain rating (1-10): 0/10 Estimated duration of morning joint stiffness: none Estimated number of recent flares: no Recent systemic corticosteroid use: yes - prednisone taper Patient's Problems/Needs: GCA/controlling symptoms with steroid sparing agent Expected Outcome: decrease prednisone dosage Treatment Outcome: Therapy initiated Patient's goals: Patient's specific desired goal: Goals ??? BRYAN Self-Management Judson Patel Jr. Is hoping to decrease his prednisone dosage and keep pain levels at a minimum.He is hoping that Actemra will be able to keep him walking since before prednisone he had a hard time standing up and walking around. Measured by: pain scale, morning stiffness, symptoms of GCA , # of flares Time-frame to meet goal: 3 to 6 months On a scale of 1-10, what is the patient's overall confidence level with administering this medication? 04/04 (calling patient to go over administration); he has an appt with Dr. Payan on 02/06 so I canshow him how to use it then Monitoring requirements for prescribed medication: TB screening, CBC, LFTs, lipid panel, signs and symptoms of infection, signs and symptoms of VP [employer] demyelinating disorders On a scale of 1-10 the patient rates their quality of life: not rated Care Plan Reviewed and Approved by both Pharmacist and Patient: Yes Interventions (if applicable): No Pharmacist follow-up needed: Yes Delivery Method: Delivery Patient understands no changes to current drug regimen were made at the appointment and that [facility] isproviding recommendations (summary located at top of note) for provider review and follow up. Danica Taylor RPH 01/30/23 12:22 PM documented in this encounter Plan of Treatment Not on file documented as of this encounter Goals Goal Patient Goal Type Associated Problems Recent Progress Patient-Stated? Author BRYAN Self-Management Patient Facing Action Plan No Danica Taylor [facility] Note: Judson Patel Jr. Is hoping to decrease his prednisone dosage and keep pain levels at a minimum. He is hoping that Actemra will be able to keep him walking since before prednisone he had a hard time standing up and walking around. documented as of this encounter Visit Diagnoses Not on filedocumented in this encounter Care Teams [place] Seamer Relationship Specialty Start Date End Date Yesy Nagy APRN [address] [place] [address] PCP - General Geriatric Medicine 08/02/22 documented as of this encounter
--- OUTSIDE RECORDS SUMMARY | 2024-06-19 02:36 | XMS_ITS | Encounter Summary ---
Author Organization [facility] Address [facility] [place] [address] Care Team Providers Care Flipping Machine Operator Name Role Phone Yesy Nagy APRN Primary Care Provider Reason for Referral * Diagnostic Test (Routine) - Closed Specialty Diagnoses / Procedures Referred By Contac t Referred To Contact Radiology Diagnoses Gait instability Tremor Procedures MRI Brain wo Contrast Srikanth Morris MD [facility] [place] [address] [place] [address] Referral ID Status Reason Start Date Expiration Date V isits Requested Visits Authorized [id number] Closed Specialty Service Requested 01/23/2023 07/23/2024 1 1 Reason for Visit * Diagnostic Test (Routine) - Closed Specialty Diagnoses / Procedures Referred By Contac t Referred To Contact Radiology Diagnoses Gait instability Tremor Procedures MRI Brain wo Contrast Srikanth Morris MD [facility] [place] [address] [place] [address] Referral ID Status Reason Start Date Expiration Date V isits Requested Visits Authorized [id number] Closed Specialty Service Requested 01/23/2023 07/23/2024 1 1 Encounter Details Date Type Department Care Team (Latest Contact Info) Description 02/23/2023 12:30 PM EDT - 02/23/2023 1:41 PM EDT Hospital [place] [address] Srikanth Morris MD [facility] [place] [address] [address] Gait instability; Tremor Discharge Disposition: Home Social History Tobacco Use Types Packs/Day Years Used Date Smoking Tobacco: Former Cigarettes Q uit: 06/09/1986 Smokeless Tobacco: Never Alcohol Use Standard Drinks/Week Comments Yes 0 (1 standard drink = 0.6 oz pur e alcohol) Sex and Gender Information Value Date Recorded Sex Assigned at Not on file Gender Identity Not on file Sexual Orientation Not on file documented as of this encounter Medications at Time of Discharge Medication Sig Dispensed Refills Start Date End Date cholecalciferol, Vitamin D3, 25 mcg (1,000 unit) Capsule daily. 09/20/2022 ketoconazole (NIZORAL) 2 % Shampoo .2x/week 02/19/2023 metFORMIN XR (Glucophage XR) 500 mg Tablet Sustained Release 24 hr Take 500 mg by mouth daily. 01/01/2023 hydrocortisone 2.5 % Cream APPLY TOPICALLY THREE TIMES A DAY NEEDED FOR SKIN IRRITATION/HEMMORRHOID 01/01/2023 amLODIPine (Norvasc) 5 mg Tablet amlodipine 5 mg tablet TAKE ONE TABLET BY MOUTH EVERY DAY ZINC ORAL Take by mouth. docosahexaenoic acid/epa (FISH OIL ORAL) Take by mouth. Ascorbic Bgpa-Omjetxkwm-Wsa (Emergen-C) 1,000 mg Powder Effervescent in Packet Take by mouth. VITAMIN B COMPLEX-100 ORAL Take by mouth. tamsulosin (FLOMAX) 0.4 mg Capsule, Sust. Release 24 hr Take 0.4 mg by mouth daily. 04/17/2016 aspirin 325 mg Tablet Take 325 mg by mouth daily. predniSONE (Deltasone) 5 mg tabletIndications:GC A (giant cell arteritis),Medicatio n monitoring encounter Take 6 tablets by mouth daily for 7 days, THEN 5 tablets daily for 7 days, THEN 4 tablets daily for 7 days, THEN 3 tablets daily for 7 days, THEN 2.5 tablets daily for 7 days, THEN 2 tablets daily for 7 days, THEN 2 tablets daily for 14 days. 186 tablet 02/06/2023 04/03/2023 tocilizumab (Actemra ACTPen) 162 mg/0.9 mL Pen InjectorIndications: GCA (giant cell arteritis),keno terminal operator current use of systemic steroids Inject 0.9 mLs subcutaneously once a week. 3.6 mL 5 01/23/2023 05/31/2023 predniSONE (Deltasone) 1 mg TabletIndications:GC A (giant cell arteritis) Take 10 tablets by mouth daily for 14 days, THEN 9 tablets daily for 28 days, THEN 8 tablets daily for 28 days, THEN 7 tablets daily for 28 days, THEN 6 tablets daily for 28 days. Further will be discussed at follow up 980 tablet 12/15/2022 04/20/2023 documented as of this encounter Plan of Treatment Not on file documented as of this encounter Goals Goal Patient Goal Type Associated Problems Recent Progress Patient-Stated? Author DH Self-Management Patient Facing Action Plan No Danica Taylor, [facility] Note: Judson Nagel Jorge Funk Is hoping to decrease his prednisone dosage and keep pain levels at a minimum. He is hoping that Actemra will be able to keep him walking since before prednisone he had a hard time standing up and walking around. documented as of this encounter Procedures Procedure Name Priority Date/Time Associated Diagnosis Comments MRI BRAIN WO CONTRAST Routine 02/23/2023 1:36 PM EDT Gait instability Tremor documented in this encounter Results * MRI Brain wo Contrast (02/23/2023 1:36 PM EDT) Anatomical Region Laterality Modality Head Magnetic Resonan ce Impressions 02/23/2023 5:06 PM EDT Age-related changes. No acute process identified. Thank you for letting us participate in the care of this patient. ??If you are a health care provider and have any questions regarding this report, please contact the number below. ??For patients who have questions please contact the health neonatal critical care nurse that requested your imaging first. ? Electronically signed by: Jack Srinivasan MD, [facility] ([phone]), at 02/23/2023 5:06 PM Narrative 02/23/2023 5:06 PM EDT EXAMINATION: MRI BRAIN WO CONTRAST CLINICAL HISTORY: Dizziness, non-specific TECHNIQUE: MRI of the brain performed without intravenous contrast administration. COMPARISON: None FINDINGS: Calvarium and skull base show normal marrow signal intensity. Fluid opacification noted in the right mastoid air cells. The facial bones show normal marrow signal intensity. The orbital contents are normal. Optic chiasm and tracts are normal. Pituitary gland is normal for age. Cerebral and cerebellar atrophy are noted. Chronic white matter hyperintensity on FLAIR images is noted consistent with chronic small vessel disease related to aging, atherosclerosis or hypertension. Flow voids within the dural sinuses and major arteries are normal. Procedure Note Jack Srinivasan MD - 02/23/2023 EXAMINATION: MRI BRAIN WO CONTRAST CLINICAL HISTORY: Dizziness, non-specific TECHNIQUE: MRI of the brain performed without intravenous contrast administration. COMPARISON: None FINDINGS: Calvarium and skull base show normal marrow signal intensity. Fluid opacification noted in the right mastoid air cells. The facial bones shownormal marrow signal intensity. The orbital contents are normal. Optic chiasmand tracts are normal. Pituitary gland is normal for age. Cerebral and cerebellar atrophy are noted. Chronic white matterhyperintensity on FLAIR images is noted consistent with chronic small vessel diseaserelated to aging, atherosclerosis or hypertension. Flow voids within the duralsinuses and major arteries are normal. IMPRESSION Age-related changes. No acute process identified. Thank you for letting us participate in the care of this patient. If youare a health care provider and have any questions regarding this report,please contact the number below. For patients who have questions please contactthe health neonatal critical care nurse that requested your imaging first. Electronically signed by: Jack Srinivasan [facility]([phone]), at 02/23/2023 5:06 PM Srikanth Morris MD IMG MRI ORDERABLES documented in this encounter Visit Diagnoses Diagnosis Gait instability Abnormality of gait Tremor Abnormal involuntary movements documented in this encounter Care Teams Flipping Machine Operator Relationship Specialty Start Date End Date Yesy Nagy APRN [address] [place] [address] PCP - General Geriatric Medicine 08/02/22 documented as of this encounter
--- OUTSIDE RECORDS SUMMARY | 2024-06-19 02:36 | XMS_ITS | Encounter Summary ---
Author Organization [facility] [place] [address] Care Team Providers Care Email Campaign Specialist Name Role Phone Yesy Nagy APRN Primary Care Provider Encounter Details Date Type Department Care Team (Latest Contact Info) Description 02/06/2023 4:30 PM EDT TH Visit (TeleHealth) [place] [phone] Ananya Payan, [facility] [place] [address] GCA (giant cell arteritis); Medication monitoring encounter; long term care pharmacist current use of systemic steroids; Immunosuppressed status Social History Tobacco Use Types Packs/Day Years [...] of this encounter Progress Notes * Ananya Payan, - 02/06/2023 4:30 PM EDT Rheumatology Outpatient Follow Up Note PCP: MALACHI Vinson Jr. is a 72 y.o. male who we are seeing for the continuing management of GCA At the outset of this visit, I made them aware that this telephone visit may be billed similar to aclinic visit to him or his insurance company. Mr. Patel were in agreement to continue this visit. Total telephone visit time: [phone] for a total 30 minutes. Rheum History: #GCA ?? -Symptoms began in April 2022 with generalized body pain with intermittent headaches, unsteady gait.??Initially evaluated on prednisone 25 mg and had sed rate of 60, CRP 15 August 2022. ??Given elevated inflammatory markers, age >50??and headache concern of GCA. ??Unfortunately been on prednisone for over 2 months therefore a biopsy would likely be negative. -Started prednisone 60mg with improvement of symptoms and inflammatory markers. -??pt declined??tocilizumab -Due to symptoms of disequilibrium he wants referred to neurology, MRI of the brain was recommended. ??Patient declined MRI. -Seen 09/14/2022, doing well continue to taper down on prednisone without recurrence of headache inflammatory markers remain low -Labs 10/20/2022, ESR 33, CRP 0.14. -??Continue prednisone taper,??currently on 12.5 mg x 2 weeks then 10 mg x 2 weeks. ??Then taper down by 1 mg/month. - 01/18: elevated CRP, ESR on 8mg prednisone, started actemra, increase prednisone to 10mg. Interval History: Patient notes he is developed daily headaches over the last 10 days. Describes pressure in his head-frontal. Rates moderate, but will improve with aspirin after 30 minutes. He is also noted a yellow hue to his vision. He reports he has seen a neurologist in the past but not recently. Denies temporal artery pain, scalp tenderness, joint pain, joint swelling, morning stiffness. No jaw claudication. -Started Actemra last week, no injection site reaction -Patient does not have computer to do video visit or smart phone. ROS (positives in bold): Gen: no fevers, [...] with sed rate of 51, CRPof 5.2. At that time he was asymptomatic. Decided to start Actemra and increase prednisone to 10 mg. Over the last week he was able to start Actemra without side effects but now has noted recurrence of daily headaches. We will check inflammatory markers today but cannot rule out GCA. No vision loss, but does note yellowish color to his vision, possible underlying cataract. Will increase prednisone to 30 mg and taper. 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 We will plan further follow-up at next visit, we will plan to follow 26-week taper from Gitacta trial -Check inflammatory markers CRP ESR, labs sent to [facility] - follow up with eye clinic -We will follow-up in 3 weeks Patient was discussed with Dr. Andres Payan DO, PGY4 Rheumatology Fellow Pager: [phone] * Tess Morse MD - 02/06/2023 4:30 PM EDT I was the attending physician supervising the fellow in the above care. Do to weather I have not seen or examined the patient. I have discussed the case with the fellow reviewed the above note history, and assessment. I agree with the details as reasonable management based on the information provided. Visual hallucinations are possible with giant cell arteritis, though likely early cataract is difficult to discern over the phone. Recommend patient seeing ophthalmology soon as possible for further evaluation. We will retitrate up steroids with the concern that if this is related to GCA can recapture since recently started on Actemra. Tess Morse MD [email or web address]$ documented in this encounter Miscellaneous Notes * Addendum Note - Tess Morse MD - 02/06/2023 4:30 PM EDTAddended by: TESS MORSE on: 02/07/2023 04:34 PM Modules accepted: Level of Service documented in this encounter Plan of Treatment Not on file documented as of this encounter Goals Goal Patient Goal Type Associated Problems Recent Progress Patient-Stated? Author DH Self-Management Patient Facing Action Plan No Danica Taylor, [facility] Note: Judson Patel Jr. Is hoping to [...] monitoring encounter Encounter for therapeutic drug monitoring [facility] current use of systemic steroids Encounter for long-term (current) use of steroids Immunosuppressed status Unspecified disorder of immune mechanism documented in this encounter Care Teams Email Campaign Specialist Relationship Specialty Start Date End Date Yesy Nagy APRN [address] [place] [address] PCP - General Geriatric Medicine 08/02/22 documented as of this encounter
--- OUTSIDE RECORDS SUMMARY | 2024-06-19 02:36 | XMS_ITS | Encounter Summary ---
Author Organization [facility] Address [facility] [place] [address] Care Team Providers Care Desizing Machine Offbearer Name Role Phone Yesy Nagy APRN Primary Care Provider Encounter Details Date Type Department Care Team (Late st Contact Info) Description 12/18/2022 [place] [address] Emma Zuñiga LPN Social History Tobacco Use Types Packs/Day Years [...] encounter Miscellaneous Notes * Telephone Encounter - Emma Zuñiga LPN - 12/18/2022 1:17 PM EST Message left on patients home machine to call back with questions about prednisone dose. Call back number provided documented in this encounter Plan of Treatment Not on file documented as of this encounter Goals Goal Patient Goal Type Associated Problems Recent Progress Patient-Stated? Author BRYAN Self-Management Patient Facing Action Plan No Danica Taylor, [facility] Note: Judson Patel Jr. Is hoping to decrease his prednisone dosage and keep pain levels at a minimum. He is hoping that Actemra will be able to keep him walking since before prednisone he had a hard time standing up and walking around. documented as of this encounter Visit Diagnoses Not on filedocumented in this encounter Care Teams Desizing Machine Offbearer Relationship Specialty Start Date End Date Yesy Nagy APRN [address] [place] [address] PCP - General Geriatric Medicine 08/02/22 documented as of this encounter
--- OUTSIDE RECORDS SUMMARY | 2024-06-19 02:36 | XMS_ITS | Encounter Summary ---
[facility] [place] [address] Care Team Providers Care Chronic Condition Nurse Name Role Phone Yesy Nagy APRN Primary Care Provider Encounter Details Date Type Department Care Team (Latest Contact Info) Description 04/25/2023 10:30 AM EDT TH Visit (TeleHealth) [place] [phone] Ananya Payan DO [facility] [place] [address] GCA (giant cell arteritis); Immunosuppressed status; Medication monitoring encounter; intermediate current use of systemic steroids; PMR (polymyalgia rheumatica) Social History Tobacco Use [...] on file documented as of this encounter Patient Instructions * Patient Instructions* Ananya Payan DO - 04/25/2023 10:30 AM EDT Phone call in 2 weeks - pt to hold Actemra X 2 weeks for finger infection. - continue Prednisone 5 mg daily documented in this encounter Progress Notes * Ananya Payan DO - 04/25/2023 10:30 AM EDT Rheumatology Outpatient Telephone Follow Up Note PCP: Yesy MacLeod, [employer] Judson K Jorge Jr. is a 72 y.o. male who we are seeing for the continuing management of GCA. At the outset of this visit, I made them aware that this telephone visit may be billed similar to aclinic visit to him or his insurance company. MR. Patel were in agreement to continue this visit. Total telephone visit time: [phone] for a total 20 minutes. Rheum History: #GCA ?? -Symptoms began [...] 10/20/2022, ESR 33, CRP 0.14. -??Continue prednisone taper, 12.5 mg x 2 weeks then 10 mg x 2 weeks. ??Then taper down by 1 mg/month. - 01/18: elevated CRP- 2.22, ESR on 8mg prednisone, started actemra, increase prednisone to 10mg.?? -02/06: ??intermittent TORRES. Televist, prednisone to 30 mg x 1 week then 25 mg x 1 week then 20 mg x 1week then 15 mg x 1 week then 12.5 mg x 1 week, then 10 mg x 1 week -02/07: ESR: 11?? 04/09/23: ESR 5, CRP 0.05, CMP WNL ?? #vison changes- yellow discoloration - Following with outside eye clinic - resolved. Interval History: Pt does not have video phone or computer to do video visit. - Reports last week developed infection in the right fourth finger, was seen in the emergency department notes had purulent drainage. He was given a prescription for Bactrim. At that time we talked on the phone and he was recommended to hold Tocilizumab. Patient reports right fourth digit is now improved. But notes that he now has an infection on the left digit. He is currently at the emergency department obtaining an x-ray. - He is Currently on 5 mg of prednisone. -He was seen by his wharf worker for eye pain last week and was treated for possible conjunctivitis I do not have these records.. He reports that his children's zoo caretaker felt that there was contamination from his finger. -No fevers -No headaches, vision changes, jaw claudication -No joint pain ROS (positives in bold): Gen: no fevers, no chills, no night sweats Pulm: no SOB CV: no CP Abd: no abd pain, no nausea, no vomiting, no diarrhea MSK: no joint pain, no morning stiffness Meds and Allergies: Reviewed in [facility] Labs/Studies: Reviewed. Assessment/Plan: 72-year-old male with past medical history of hypertension, BPH, peripheral neuropathy presenting for follow-up of GCA. ?? Initially diagnosed July 2022 with headaches, joint pain, gait instability had tapered down to8 mg of prednisone.?December 2021 had mildly elevated inflammatory markers with sed rate of 51, CRP of 5.2.?Also developed intermittent recurrent headaches.?He was started on??Actemra and increase prednisone to 30 mg and tapered per??giacta 26 week schedule.? Patient is currently on 5 mg of prednisone. Last week developed what sounds like cellulitis of the right fourth finger with possible abscess and was started on antibiotics with improvement, but subsequently developed a second area of infection on the right third finger. Given he has an active infection at this time. We will hold tocilizumab for 2 weeks. We will continue on prednisone 5 mg daily. -I will call patient in 2 weeks to discuss resuming tocilizumab. Plan - Obtain records from [facility] visit - Continue Prednisone 5mg daily - Hold Tolcilizumab x2 weeks - Continue Calcium and Vit D supplement - Phone follow-up in 2 weeks - Follow up in person in 2 months. Patient was discussed with Dr. Luis Payan DO Rheumatology Fellow Pager: [phone] * Pravin Smith MD - 04/25/2023 10:30 AM EDT Attending Addendum The patient had a TeleHealth visit with Dr. Ananya Payan, rheumatology fellow I. We reviewed the patient's interval history and Dr. Payan's management plan. I agree with Dr. Payan's assessment and plan. I did not directly interact with the patient. Pravin Smith MD Staff Manufacturing Maintenance Manager documented in this encounter Plan of Treatment Not on file documented as of this encounter Goals Goal Patient Goal Type Associated Problems Recent Progress Patient-Stated? Author DH Self-Management Patient Facing Action Plan No Danica Taylor, [facility] Note: Judson Nagel Jorge Funk Is hoping [...] monitoring encounter Encounter for therapeutic drug monitoring termite exterminator current use of systemic steroids Encounter for long-term (current) use of steroids PMR (polymyalgia rheumatica) Polymyalgia rheumatica documented in this encounter Care Teams Chronic Condition Nurse Relationship Specialty Start Date End Date Yesy Nagy APRN [address] [place] [address] PCP - General Geriatric Medicine 08/02/22 documented as of this encounter
--- OUTSIDE RECORDS SUMMARY | 2024-06-19 02:36 | XMS_ITS | Encounter Summary ---
Author Organization [facility] Address [facility] [place] [address] Care Team Providers Care Phlebotomist Supervisor/Instructor Name Role Phone Yesy Nagy APRN Primary Care Provider [phone] Reason for Visit * Reason Comments Specialty Pharmacy Review Tocilizumab (A ctemra) Actpen 162mg/0.9mL Encounter Details Date Type Department Care Team (Late st Contact Info) Description 04/25/2023 Specialty Pharmacy Pharmacy at [facility] [place] [address] Yuliya Booker, [facility] Social History Tobacco Use Types Packs/Day [...] encounter Progress Notes * Yuliya Booker - 04/25/2023 7:52 AM EDT [facility] has completed a benefits investigation for Judson Patel Jr. to review their eligibility to fill at [facility]. Per patient's medication list they are prescribed Actemra and the medication is currently filled at the [facility]. documented in this encounter Plan of Treatment Not on file documented as of this encounter Goals Goal Patient Goal Type Associated Problems Recent Progress Patient-Stated? Author BRYAN Self-Management Patient Facing Action Plan No Danica Taylor, [facility] Note: Judson Patel Jr. Is hoping to decrease his prednisone dosage and keep pain levels at a minimum. He is hoping that Actemra will be able to keep him walking since before prednisone he had a hard time standing up and walking around. documented as of this encounter Visit Diagnoses Not on filedocumented in this encounter Care Teams Phlebotomist Supervisor/Instructor Relationship Specialty Start Date End Date Yesy Nagy APRN [address] [place] [address] PCP - General Geriatric Medicine 08/02/22 documented as of this encounter
--- OUTSIDE RECORDS SUMMARY | 2024-06-19 02:36 | XMS_ITS | Encounter Summary ---
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 Verbal consent to participate in telephone visit was obtained by Ananya Payan DO. This visit occurred during the Coronavirus (COVID-19) Public Health Emergency. I discussed with the patient [...] in patient's medical or mental health care. Patient requested tele-health visit as he has limited transportation to drive to . PCP: MALACHI Vinson Jr. is a 72 y.o. male who we are seeing for the continuing management of GCA Rheum History: #GCA -Symptoms began in April [...] low -Labs 10/20/2022, ESR 33, CRP 0.14. Interval History: Patient reports he feels like he is doing well. He does note he continues to have symptoms of disequilibrium, especially with change of position. With unsteady gait. Continues to sustain from alcoholper his report. He does note that he was driving home from the [employer] the other day and got lost, he states it took a little while to find his house. He denies any jaw claudication, headaches, vision loss, joint pain joint swelling. ROS (positives in bold): Gen: no fevers, no chills, no night sweats Pulm: no SOB CV: no CP Abd: no abd pain, no nausea, no vomiting, no diarrhea MSK: see HPI Meds and Allergies: Reviewed in e[facility] Labs/Studies: Reviewed. Labs were done at [facility], they were reviewed, ESR 33, CRP0.14. -For patient's age and the ESR is in with normal limits. Assessment/Plan: 71-year-old male with past medical history of hypertension, BPH, peripheral neuropathy, alcohol usedisorder who presenting today for follow-up of GCA. ?? Patient reports that he feels symptoms are stable. He still has some intermittent disequilibrium. He has an appointment scheduled with neurology in early November. His PCP is ordered him an MRI. He has no symptoms of Headaches, joint pain, jaw claudication, vision changes. His inflammatory markers from 1 week ago are low, ESR 33, CRP 0.14. I feel the symptoms of GCA are well controlled at this time. We will continue to taper down his prednisone. Previously discussed treatment with tocilizumab, patient declines due to side effect profile. Plan -Continue prednisone taper, currently on 17.5 mg daily, then on 10/29 taper down to 15 mg x 2 weeks,then 12.5 mg x 2 weeks then 10 mg x 2 weeks. Then taper down by 1 mg/month. -Continue calcium vitamin D supplement -Continue aspirin -Can discontinue Bactrim for PJP prophylaxis -Follow-up as already scheduled, in person for 11/23/2022 -Neurology appointment scheduled for 12/08/2022., If able advised I also recommended patient obtain MRI of his brain., Has been ordered by both me and his PCP. Time spent on the phone with the patent was 15 minutes Patient was discussed with Dr. Pamella Payan DO Rheumatology Fellow Pager: [phone] * Vianney Can MD - 10/24/2022 3:45 PM EST I discussed this patient with Dr. Payan both before and after the visit. She provided the care of the telephone. I have reviewed hr note and agree with the details documented. documented in this encounter Plan of Treatment Not on file documented as of this encounter Goals Goal Patient Goal Type Associated Problems Recent Progress Patient-Stated? Author DH Self-Management Patient Facing Action Plan No Danica Taylor, [facility] Note: Judson Nagel Jorge Cisse. Is hoping to decrease his prednisone dosage and keep pain levels at a minimum. He is hoping that Actemra will be able to keep him walking since before prednisone he had a hard time standing up and walking around. documented as of this encounter Visit Diagnoses Diagnosis GCA (giant cell arteritis) Giant cell arteritis Gait instability Abnormality of gait PMR (polymyalgia rheumatica) Polymyalgia rheumatica halfway current use of systemic steroids Encounter for long-term (current) use of steroids documented in this encounter Care Teams Food Service Worker Hospital Relationship Specialty Start Date End Date Yesy Nagy APRN [address] [place] [address] PCP - General Geriatric Medicine 08/02/22 documented as of this encounter
--- OUTSIDE RECORDS SUMMARY | 2024-06-19 02:36 | XMS_ITS | Encounter Summary ---
[place] [address] Care Team Providers Care Counter Hop Name Role Phone Yesy Nagy APRN Primary Care Provider Encounter Details Date Type Department Care Team (Late st Contact Info) Description 12/15/2022 Telephone [place] [address] Flaquita Ricks, RN Social History Tobacco Use Types Packs/Day [...] Action Plan No Danica Taylor, [facility] Note: Judson Patel Jr. Is hoping to decrease his prednisone dosage and keep pain levels at a minimum. He is hoping that Actemra will be able to keep him walking since before prednisone he had a hard time standing up and walking around. documented as of this encounter Visit Diagnoses Not on filedocumented in this encounter Care Teams Counter Hop Relationship Specialty Start Date End Date Yesy Nagy APRN [address] [place] [id number] PCP - General Geriatric Medicine 08/02/22 documented as of this encounter
--- OUTSIDE RECORDS SUMMARY | 2024-06-19 02:36 | XMS_ITS | Encounter Summary ---
Author Organization [facility] Address [facility] [place] [address] Care Team Providers Care Glass Blowing Lathe Operator Name Role Phone Yesy Nagy APRN Primary Care Provider [phone] Reason for Visit * Reason Comments Specialty Refill Management Medication Management Encounter Details Date Type Department Care Team (Late st Contact Info) Description 03/20/2023 Specialty [place] [address] Rayne Vigil, EMBEDDED SOFTWARE ARCHITECT Social History Tobacco Use Types Packs/Day Years [...] as of this encounter Progress Notes * Anil Medeiros RPH - 03/20/2023 10:40 AM EDT Clinical Management Plan: Refill Specialty Pharmacy Consultation; Anil Medeiros [facility] Comprehensive Medication Management (CMM) Judson Patel Jr. Mr. Judson Patel . is a 72 y.o. (1950) male who was contacted in regard to a specialty medication refill reminder. Contact made with patient regarding Actemra. A review of the medication therapy was performed. The medication was refilled as scheduled, and all medication related questions and concerns were addressed. The specialty pharmacy staff will follow up with the patient 5-7 daysprior to next refill. Was a change made to the Care Plan: no, pt asked about dosing with altered kidney function, no dosage adjustments necessary for kidney function with Actemra If yes, should the medication be held: No Assessment and Recommendations: Medication Management Type of Medication Management: chronic disease management Referred By: pharmacist Recipient: beneficiary Provider: plan sponsor pharmacist [facility] Time Spent: 1-15 min Method of Contact: by telephone Cognitive Ability: good Allergies and Drug intolerance: No Known Allergies Medication Reconciliation Discrepancies (compared to [facility] med list) -none Specialty Pharmacy Refill Questionnaire 03/20/2023 Refill Questionnaire What is the name of the specialty medication you are refilling? Actemra Are you taking any new medications? No Any new medical condition? Yes Please explain problem with iban pt transferred to [facility] Anil Any new allergies? No Any missed doses since your last fill? 0 Any new side effects that are bothersome? No What date will you need this fill by? 03/29/2023 Adherence: Specialty Med Adherence Patient Demonstrates Understanding of Importance of Adherence: Yes Educational Information or Adherence Tools Provided: Yes Patient Reported X Missed Doses in the Last Month: 0 Provider-Estimated Medication Adherence Level: 90-100% Adherence Tools Used: calendar Pt understands no changes to current drug regimen were made at the appointment and that [facility] is providing recommendations (summary located at top of note) for provider review and follow up. Anil Medeiros [facility] 03/20/23 10:47 AM documented in this encounter Plan of Treatment Not on file documented as of this encounter Goals Goal Patient Goal Type Associated Problems Recent Progress Patient-Stated? Author DH Self-Management Patient Facing Action Plan No Danica Taylor, [facility] Note: Judson Patel Jr. Is hoping to decrease his prednisone dosage and keep pain levels at a minimum. He is hoping that Actemra will be able to keep him walking since before prednisone he had a hard time standing up and walking around. documented as of this encounter Visit Diagnoses Not on filedocumented in this encounter Care Teams Glass Blowing Lathe Operator Relationship Specialty Start Date End Date Yesy Nagy APRN [address] [place] [address] PCP - General Geriatric Medicine 08/02/22 documented as of this encounter
--- OUTSIDE RECORDS SUMMARY | 2024-06-19 02:36 | XMS_ITS | Encounter Summary ---
Author Organization [facility] [place] [address] Care Team Providers Care Traffic Officer Name Role Phone Yesy Nagy MALACHI Primary Care Provider [phone] Reason for Visit * Reason Comments Specialty Pharmacy Review Tocilizumab (A ctemra) Actpen 162mg/0.9mL Encounter Details Date Type Department Care Team (Late st Contact Info) Description 01/24/2023 Specialty [facility]acy [facility] [place] [address] Yuliya Booker, SUPERVISOR ELEMENTARY EDUCATION Social History Tobacco Use Types Packs/Day Years [...] Progress Notes * Danica Taylor RPH - 01/24/2023 11:02 AM EST The [facility] has completed a benefits investigation for Judson Patel Jr. to review their eligibility to fill at [facility]. Per patient's medication list they are prescribed Actemra and the medication is able to be filled at the [facility]. Judson Patel Jr. elects to fill Actemra at the Specialty Pharmacy. documented in this encounter Plan of Treatment Not on file documented as of this encounter Goals Goal Patient Goal Type Associated Problems Recent Progress Patient-Stated? Author Self-Management Patient Facing Action Plan No Danica Taylor RPH Note: Judson Robe Patel Jr. Is hoping to decrease his prednisone dosage and keep pain levels at a minimum. He is hoping that Actemra will be able to keep him walking since before prednisone he had a hard time standing up and walking around. documented as of this encounter Visit Diagnoses Not on filedocumented in this encounter Care Teams Traffic Officer Relationship Specialty Start Date End Date Yesy Nagy APRN [address] [place] [address] PCP - General Geriatric Medicine 08/02/22 documented as of this encounter
--- OUTSIDE RECORDS SUMMARY | 2024-06-19 02:36 | XMS_ITS | Encounter Summary ---
Author Organization [facility] Address [facility] [place] [address] Care Team Providers Care Assembly Line Upholsterer Name Role Phone Yesy Nagy MALACHI Primary Care Provider [phone] Reason for Visit * Diagnostic Test (Routine) - Closed Specialty Diagnoses / Procedures Referred By Contac t Referred To Contact Radiology Diagnoses Gait instability Tremor Procedures NM Brain Imaging for Parkinsons Disease Srikanth Morris MD [facility] [place] [address] [place] [address] Referral ID Status Reason Start Date Expiration Date V isits Requested Visits Authorized [id number] Closed Specialty Service Requested 01/23/2023 07/23/2024 1 1 Encounter Details Date Type Department Care Team (Latest Contact Info) Description 02/23/2023 1:42 PM EDT - 02/23/2023 11:59 PM EDT Hospital En[place] [address] Srikanth Morris MD [facility] [place] [address] Discharge Disposition: Home Social History Tobacco Use [...] (FISH OIL ORAL) Take by mouth. Ascorbic Mtkn-Bvqmjqvel-Juq (Emergen-C) 1,000 mg Powder Effervescent in Packet [...] mg/0.9 mL Pen InjectorIndications: GCA (giant cell arteritis),[facility] current use of systemic steroids Inject 0.9 [...] Action Plan No Danica Taylor, [facility] Note: Judson Patel Jr. Is hoping to decrease his prednisone dosage and keep pain levels at a minimum. He is hoping that Actemra will be able to keep him walking since before prednisone he had a hard time standing up and walking around. documented as of this encounter Procedures Procedure Name Priority Date/Time Associated Diagnosis Comments NM BRAIN IMAGING FOR PARKINSONS DISEASE Routine 02/23/2023 2:47 PM EDT Gait instability Tremor documented in this encounter Results * NM Brain Imaging for Parkinsons Disease (02/23/2023 2:47 PM EDT) Anatomical Region Laterality Modality Nuclear Medicine Impressions 02/23/2023 4:35 PM EDT No evidence of a Parkinsonian syndrome. Thank you for letting us participate in the care of this patient. ??If you are a health care provider and have any questions regarding this report, please contact the number below. ??For patients who have questions please contact the health aged or disabled care worker that requested your imaging first. ? Narrative 02/23/2023 4:35 PM EDT EXAMINATION: NM BRAIN IMAGING FOR PARKINSONS DISEASE CLINICAL HISTORY: Gait imbalance TECHNIQUE: Pretreatment with oral potassium iodide was given. Following this, I-123 ioflupane was administered intravenously in a dose of 4.9 mCi. Four hours later, tomographic imaging of the brain was performed with images reconstructed in the axial, sagittal and coronal planes COMPARISON: None FINDINGS: There is normal symmetric activity within the caudate nucleus and putamen bilaterally. Procedure Note Seth Guillen MD - 02/23/2023 EXAMINATION: NM BRAIN IMAGING FOR PARKINSONS DISEASE CLINICAL HISTORY: Gait imbalance TECHNIQUE: Pretreatment with oral potassium iodide was given. Followingthis, I-123 ioflupane was administered intravenously in a dose of 4.9 mCi. Fourhours later, tomographic imaging of the brain was performed with imagesreconstructed in the axial, sagittal and coronal planes COMPARISON: None FINDINGS: There is normal symmetric activity within the caudate nucleus andputamen bilaterally. IMPRESSION No evidence of a Parkinsonian syndrome. Thank you for letting us participate in the care of this patient. If youare a health care provider and have any questions regarding this report,please contact the number below. For patients who have questions please contactthe health aged or disabled care worker that requested your imaging first. Srikanth Morris MD [facility] ORDERABLES documented in this encounter Visit Diagnoses Not on filedocumented in this encounter Care Teams Assembly Line Upholsterer Relationship Specialty Start Date End Date Yesy Nagy APRN [address] [place] [address] PCP - General Geriatric Medicine 08/02/22 documented as of this encounter
--- OUTSIDE RECORDS SUMMARY | 2024-06-19 02:36 | XMS_ITS | Encounter Summary ---
Author Organization [facility] Address [facility] [place] [address] Care Team Providers Care Pe Teacher Name Role Phone Yakov Yesy MALACHI Primary Care Provider [phone] Reason for Visit * Reason Comments Medication Management Encounter Details Date Type Department Care Team (Late st Contact Info) Description 10/04/2022 Specialty [place] [phone] [facility] Social History Tobacco Use Types Packs/Day Years [...] this encounter Progress Notes * Danica [facility] - 10/04/2022 7:35 AM EST Clinical Management Plan: Transfer of Care/Discharge Specialty Services Specialty Pharmacy Consultation; Danica [facility] Comprehensive Medication Management (CMM) Judson Patel Jr. [address] [facility] [address] Telephone Information: Work Phone Not on file. Is the patient transferring services to a different Specialty Pharmacy or discontinuing the medication? Discontinuing Medication Medication: Actemra Reason for discontinuation or transfer: pt does not want to start med due to potential side effects Approximate date of discontinuation or transfer: never started med Patient's response to therapy: never started Summary of services provided by [facility]: benefits investigation, new start, PHQ9, 1 month and6 month follow ups, refill reminders, and mail services Summary of on-going needs: continue to follow up with Dr. Payan Referral for additional services (if applicable): n/a Is patient aware of referral? no Instructions provided to patient about discharge/transfer: no Provider aware of discontinuation or transfer: Yes Patient understands no changes to current drug regimen were made at the appointment and that [facility] isproviding recommendations (summary located at top of note) for provider review and follow up. Danica Taylor RPH 10/04/22 7:35 AM documented in this encounter Plan of Treatment Not on file documented as of this encounter Goals Goal Patient Goal Type Associated Problems Recent Progress Patient-Stated? Author DH Self-Management Patient Facing Action Plan No Danica Taylor [facility] [...] on filedocumented in this encounter Care Teams Pe Teacher Relationship Specialty Start Date End Date Yesy Nagy APRN [facility] [place] [address] PCP - General Geriatric Medicine 08/02/22 documented as of this encounter
--- OUTSIDE RECORDS SUMMARY | 2024-06-19 02:36 | XMS_ITS | Encounter Summary ---
Author Organization Count Includes [facility] [address] Care Team Providers Care Management Department Chair Name Role Phone YakovYesy MALACHI Primary Care Provider [phone] Reason for Visit * Reason Onset Date Comments Other 10/18/2022 Encounter Details Date Type Department Care Team (Late st Contact Info) Description 10/18/2022 [place] [phone] Dayna Paez RN Other Social History Tobacco [...] Telephone Encounter - Dayna Paez RN - 10/18/2022 1:54 PM EST Judson calls to advise he was advised by PC to discuss his treatment with Prednisone. RTC to Judson, and he states he was seen by PCP today and states PCP is concerned about his current situation and wanted him to check with Rheumatology. Judson States he has a poor memory and currently is also having balance issues. Reports PCP is ordering a Stress Test and a Brain Scan. I asked Judson to be more specific and he states he is not able to be more specific. Judson asks if Dr. Payan can reach out to his PCP to discuss her concerns. Judson thinks it has something to do with decreasing the Prednisone. I advised Judson that I will forward his message to Dr. Payan. Yesy Yakov can be reached at [phone] Ananya Payan DO sent to Rafus, Mauna L, RN Caller: Unspecified (2 days ago, 11:28 AM) Spoke with patient - on Sunday can you request the lab results from [facility] office is closed will try to talk with her Sunday /Sunday. Ananya documented in this encounter Plan of Treatment Not on file documented as of this encounter Goals Goal Patient Goal Type Associated Problems Recent Progress Patient-Stated? Author DH Self-Management Patient Facing Action Plan No Danica Taylor, [facility] Note: Judosn Robe Patel Jr. Is hoping to decrease his prednisone dosage and keep pain levels at a minimum. He is hoping that Actemra will be able to keep him walking since before prednisone he had a hard time standing up and walking around. documented as of this encounter Visit Diagnoses Not on filedocumented in this encounter Care Teams Management Department Chair Relationship Specialty Start Date End Date Yesy Nagy APRN [address] [place] [address] PCP - General Geriatric Medicine 08/02/22 documented as of this encounter
--- OUTSIDE RECORDS SUMMARY | 2024-06-19 02:36 | XMS_ITS | Encounter Summary ---
[place] [address] Care Team Providers Care Advertising Statistical Clerk Name Role Phone Yesy Nagy APRN Primary Care Provider Encounter Details Date Type Department Care Team (Late st Contact Info) Description 12/15/2022 Orders Only [place] [phone] Ananya Payan, [facility] [place] [address] GCA (giant cell arteritis) Social History Tobacco [...] arteritis documented in this encounter Care Teams Advertising Statistical Clerk Relationship Specialty Start Date End Date Yesy Nagy APRN [address] [place] [address] PCP - General Geriatric Medicine 08/02/22 documented as of this encounter
--- OUTSIDE RECORDS SUMMARY | 2024-06-19 02:36 | XMS_ITS | Encounter Summary ---
Author Organization [facility] Address [facility] [place] [place] [address] Care Team Providers Care Urologist Physician Name Role Phone Yesy Nagy APRN Primary Care Provider [phone] Reason for Visit * Reason Comments Medication Refill Encounter Details Date Type Department Care Team (Late st Contact Info) Description 12/15/2022 [place] [phone] Ananya Payan, [facility] [place] [address] residential current use of systemic steroids; GCA (giant cell arteritis) Social History Tobacco [...] encounter Miscellaneous Notes * Telephone Encounter - Flaquita Ricks RN - 12/15/2022 10:43 AM EST Awaiting call back from pt to clarify if he needs prednisone refilled and current dose. He was on ataper but per the last provider note the prednisone goal appeared to be 10mg (starting at 12.5mg). documented in this encounter Plan of Treatment Not on file documented as of this encounter Goals Goal Patient Goal Type Associated Problems Recent Progress Patient-Stated? Author DH Self-Management Patient Facing Action Plan No Danica Taylor, [facility] Note: Judson Robe Patel Jr. Is hoping to decrease his prednisone dosage and keep pain levels at a minimum. He is hoping that Actemra will be able to keep him walking since before prednisone he had a hard time standing up and walking around. documented as of this encounter Visit Diagnoses Diagnosis residential current use of systemic steroids Encounter for long-term (current) use of steroids GCA (giant cell arteritis) Giant cell arteritis documented in this encounter Care Teams Urologist Physician Relationship Specialty Start Date End Date Yesy Nagy APRN [address] [place] [address] PCP - General Geriatric Medicine 08/02/22 documented as of this encounter
--- OUTSIDE RECORDS SUMMARY | 2024-06-19 02:36 | XMS_ITS | Encounter Summary ---
Author Organization [facility] [place] [address] Care Team Providers Care Railroad Car Checker Name Role Phone Yesy Nagy APRN Primary Care Provider Reason for Referral * Consultation (STAT) - Closed Specialty Diagnoses / Procedures Referred By Contaugustin t Referred To Contact Dermatology Diagnoses Candidal paronychia Yesy Nagy APRN [address] [place] [address] [facility] Dermatology [address] [place] [address] Referral ID Status Reason Start Date Expiration Date V isits Requested Visits Authorized [id number] Closed Consult, Test & Treat 05/07/2023 05/06/2024 1 1 Encounter Details Date Type Department Care Team (Latest Contact Info) Description 05/07/2023 Transcribe Orders eDH Incoming Referrals [phone] Yesy Nagy APRN [address] [place], [place] [id number] Candidal paronychia Social History Tobacco Use Types Packs/Day Years [...] as of this encounter Plan of Treatment Scheduled Referrals Name Type Priority Associated Diagnoses Order Schedule Referral to Dermatology Outpatient Referral Routine Candidal paronychia Ordered: 05/07/2023 documented as of this encounter Goals Goal Patient Goal Type Associated Problems Recent Progress Patient-Stated? Author DH Self-Management Patient Facing Action Plan No Danica Taylor, [facility] Note: Judson Patel Jr. Is hoping to decrease his prednisone dosage and keep pain levels at a minimum. He is hoping that Actemra will be able to keep him walking since before prednisone he had a hard time standing up and walking around. documented as of this encounter Visit Diagnoses Diagnosis Candidal paronychia Candidiasis of skin and nails documented in this encounter Care Teams Railroad Car Checker Relationship Specialty Start Date End Date Yesy Nagy APRN [address] [place] [address] PCP - General Geriatric Medicine 08/02/22 documented as of this encounter
--- OUTSIDE RECORDS SUMMARY | 2024-06-19 02:36 | XMS_ITS | Encounter Summary ---
Author Organization [facility] [place] [address] Care Team Providers Care Red Mud Thickener Operator Name Role Phone eYsy Nagy APRN Primary Care Provider Encounter Details Date Type Department Care Team (Late st Contact Info) Description 11/22/2022 Telephone [place] [address] Jennifer Hebert MA Social History Tobacco Use Types Packs/Day Years [...] encounter Miscellaneous Notes * Telephone Encounter - Jennifer Hebert RMA - 11/22/2022 10:55 AM EST Called patient for pre-charting, no answer. TR BERTA documented in this encounter Plan of Treatment Not on file documented as of this encounter Goals Goal Patient Goal Type Associated Problems Recent Progress Patient-Stated? Author BRYAN Self-Management Patient Facing Action Plan No Danica Taylor, [facility] Note: Judson Patel Jr. Is hoping to decrease his prednisone dosage and keep pain levels at a minimum. He is hoping that Actemra will be able to keep him walking since before prednisone he had a hard time standing up and walking around. documented as of this encounter Visit Diagnoses Not on filedocumented in this encounter Care Teams Red Mud Thickener Operator Relationship Specialty Start Date End Date Yesy Nagy APRN [address] [place] [address] PCP - General Geriatric Medicine 08/02/22 documented as of this encounter
--- OUTSIDE RECORDS SUMMARY | 2024-06-19 02:36 | XMS_ITS | Encounter Summary ---
Author Organization [facility] Address [facility] [place] [address] Care Team Providers Care Staking Press Operator Name Role Phone Yesy Nagy APRN Primary Care Provider Encounter Details Date Type Department Care Team (Late st Contact Info) Description 03/16/2023 Telephone [place] [address] Thony Dee MD [facility] [place] [address] Social History Tobacco Use Types Packs/Day Years [...] encounter Miscellaneous Notes * Telephone Encounter - Thony Dee MD - 03/16/2023 6:[address] Robe Payan while she is on vacation. Called patient to update about labs. Cr 1.5. It was 1.1 in November. His PCP has ordered a kidney scan and he will follow up with her. Rest of the labs stable. Thony Dee MD Rheumatology Fellow Pager: [phone] documented in this encounter Plan of Treatment Not on file documented as of this encounter Goals Goal Patient Goal Type Associated Problems Recent Progress Patient-Stated? Author BRYAN Self-Management Patient Facing Action Plan No Danica Taylor, [facility] Note: Judson Patel Jr. Is hoping to decrease his prednisone dosage and keep pain levels at a minimum. He is hoping that Actemra will be able to keep him walking since before prednisone he had a hard time standing up and walking around. documented as of this encounter Visit Diagnoses Not on filedocumented in this encounter Care Teams Staking Press Operator Relationship Specialty Start Date End Date Yesy Nagy APRN [address] [place] [address] PCP - General Geriatric Medicine 08/02/22 documented as of this encounter
--- OUTSIDE RECORDS SUMMARY | 2024-06-19 02:36 | XMS_ITS | Encounter Summary ---
Author Organization [facility] [place] [address] Care Team Providers Care Regional Tanker Truck Driver Name Role Phone Yesy Nagy APRN Primary Care Provider [phone] Encounter Details Date Type Department Care Team (Late st Contact Info) Description 04/16/2023 [place] [address] Landy Monson RN Social History [...] Telephone Encounter - Landy Monson RN - 04/19/2023 3:39 PM EDT Images from the original note were not included. RTC to patient to provider the following message for Dr Schuyler DO: The patient agreed and hopes this is the end of his ED visits! Ananya Payan, DO to Me ?? 3:24 PM Can let him know to hold the actrema 1 week while on ABX - continue same prednisone taper plan * Telephone Encounter - Landy Monson RN - 04/19/2023 2:02 PM EDT Call back to the patient to discuss concerns. The patient is currently at [facility] ED as he has a piece of wood in his 4th finger,Right hand, near the nailbed. This caused him to have an infection. States the ED Provider has numbed up his finger, will bjorn it to relieve pressure from purulent drainage. Also, went to the eye doctor and was placed on antibiotics for 7 days. I don't know what they said I had but they gave me medication to help cure it. I did take the Actemra this morning. Don't feel bad, a little shaky, possibly the steroids? On 5 mg of the taper currently. Patient was advised nurse was sending message to Dr Payan to inform her of situation. Patient denied f/c/n/v/d and has been active, but fatigued. Message sent. * Telephone Encounter - Landy Monson RN - 04/17/2023 10:01 AM EDT RTC to the patient. Patient states that about Sunday the Right eye started to hurt, tender with any pressure. Pain not terrible, but definitely sensitive. Both eyes were tearing before Sunday. No double vision or blurriness. Not blood shot, no dizziness reported. No burning sensation. Sensitive, and when squinting the lid pressure seems to make them hurt more. Does admit to some very light scalp sensitivity.Denied Temporal tenderness. State wind does bother his ears when outside-always has. At times will get ear infections. Does have headaches, and states these were mild, transient before. Possibly has a few more but not changed in intensity or length. Headaches are to the front and Right side spiritism. No concerns with swallowing,PND,Sinus Sx. o c/o SOB/FUNG. States he has an appt with Dr Schuyler DO on 04/24/2023? Nurse said this was with the Neurologist, not Brand Coordinator. The patient thought it was, but would like to have a follow up with Dr Payan also. Patient is on a Taper and currently on Prednisone 5 mg, which he started on 04/14/23. Nurse will sed this message to the Provider to review and advised further. * Telephone Encounter - Landy Monson RN - 04/16/2023 9:47 AM EDT RTC to the patient whom left message on voicemail stating his right eyeball was hurting. Called. No answer. Left message to return my call. documented in this encounter Plan of Treatment Not on file documented as of this encounter Goals Goal Patient Goal Type Associated Problems Recent Progress Patient-Stated? Author DH Self-Management Patient Facing Action Plan No Danica Taylor, [facility] Note: Judson Robe Patel Jr. Is hoping to decrease his prednisone dosage and keep pain levels at a minimum. He is hoping that Actemra will be able to keep him walking since before prednisone he had a hard time standing up and walking around. documented as of this encounter Visit Diagnoses Not on filedocumented in this encounter Care Teams Regional Tanker Truck Driver Relationship Specialty Start Date End Date Yesy Nagy APRN [address] [place] [address] PCP - General Geriatric Medicine 08/02/22 documented as of this encounter
--- OUTSIDE RECORDS SUMMARY | 2024-06-19 02:36 | XMS_ITS | Encounter Summary ---
Author Organization [facility] Address [facility] [place] [address] Care Team Providers Care Security Screener Name Role Phone Yesy Nagy APRN Primary Care Provider Encounter Details Date Type Department Care Team (Late st Contact Info) Description 01/23/2023 Telephone [place] [id number] Ananya Payan DO [facility] [place] [address] Social History Tobacco Use Types Packs/Day Years [...] Telephone Encounter - Ananya Payan DO - 01/23/2023 2:52 PM EST Reviewed lab results with patient, mildly elevated inflammatory markers. Give he has episode of vision changes and joint pain, can not r/o that GCa is active. Will increase prednisone to 10mg daily -discussed steroid sparing medication options. MTX vs Actemra. Pt had previously been prescribed Actemra back in July but patient had declined at the time due to concern of side effects most notably increased risk of infection. We discussed side effects of long term care pharmacist prednisone: osteoporosis, HTN, DM, cataracts and how it is important to taper off the prednisone. Pt now agreeable to actemra. - will rx actemra 162 mg q 7 days documented in this encounter Plan of Treatment Not on file documented as of this encounter Goals Goal Patient Goal Type Associated Problems Recent Progress Patient-Stated? Author DH Self-Management Patient Facing Action Plan No Danica Taylor, [facility] Note: Judson Patel Jr. Is hoping to decrease his prednisone dosage and keep pain levels at a minimum. He is hoping that Actemra will be able to keep him walking since before prednisone he had a hard time standing up and walking around. documented as of this encounter Visit Diagnoses Diagnosis GCA (giant cell arteritis) Giant cell arteritis ferry terminal supervisor current use of systemic steroids Encounter for long-term (current) use of steroids documented in this encounter Care Teams Security Screener Relationship Specialty Start Date End Date Yesy Nagy APRN [address] [place] [address] PCP - General Geriatric Medicine 08/02/22 documented as of this encounter
--- OUTSIDE RECORDS SUMMARY | 2024-06-19 02:36 | XMS_ITS | Encounter Summary ---
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 Patient called the office today due to continued pain in his left arm. On further discussion he reports about a week ago he had fallen, after tripping over a curb and was diagnosed with a left wrist fracture and is followed by an outside orthopedic. He reports he then was going down the stairs and grabbed the railing using the left hand and tripped. He is worried he may have reinjured the left wrist or worsen the fracture. He reports swelling in the left arm and the forearm and the wrist. He reports he called the orthopedic office-his provider is out of the office today they will call him back tomorrow. I advised him he may have re- injured her wrist, but difficult to me assess over the phone. Advisedif there is worsening pain can seek evaluation in the emergency department. Patient reports he feels unsafe to go up and down stairs to his apartment. Making it hard to go to he does use [employer] to help him get to appointments. Appointments. Discussed possibilities obtaining a first-floor apartment in the future. Patient does not have a lot of supports to help him with groceries. Patient has [employer] to help him get to appointments. Patient has a follow-up scheduled with me on , he is unsure if he is able to make this appointment. He reports he will try to schedule a ride. I stressed the importance of in person evaluation.With regards to his GCA he is on 15 mg of prednisone. He reports he lost his sheet that told him how to taper the prednisone down. He states he has been on 15 mg for a few weeks. Advised to continue to still taper down then 9 mg per 1 month to 12.5 mg x 2 weeks then 10 mg x 2 weeks. -We will send labs ESR CRP to [facility]. Patient advised if he is unable to come to his appointment he should go obtain labs so we can monitor his inflammatory markers. -He also discussed his continued gait imbalance which she feels is probably been helpful for the last 2 years. He has a neurology appointment in early November. Myself and his PCP if previously recommended MRI - patient has not done. * Telephone Encounter - Landy Monson RN - 11/21/2022 10:51 AM EST Patient calling asking For his Provider to return his call. Message sent to Ananya Payan DO. documented in this encounter Plan of Treatment Not on file documented as of this encounter Goals Goal Patient Goal Type Associated Problems Recent Progress Patient-Stated? Author DH Self-Management Patient Facing Action Plan No Danica Taylor, [facility] Note: Judson Robe Patel Jr. Is hoping to decrease his prednisone dosage and keep pain levels at a minimum. He is hoping that Actemra will be able to keep him walking since before prednisone he had a hard time standing up and walking around. documented as of this encounter Visit Diagnoses Not on filedocumented in this encounter Care Teams Pile Driving Technician Relationship Specialty Start Date End Date Yesy Nagy APRN [address] [place] [address] PCP - General Geriatric Medicine 08/02/22 documented as of this encounter
--- OUTSIDE RECORDS SUMMARY | 2024-06-19 02:36 | XMS_ITS | Encounter Summary ---
Author Organization [facility] Address [facility] [place] [address] Care Team Providers Care Marketing Secretary Name Role Phone Yesy Nagy APRN Primary Care Provider Encounter Details Date Type Department Care Team (Late st Contact Info) Description 03/14/2023 [place] [address] Thony Dee MD [facility] [address] Social History Tobacco Use Types Packs/Day Years [...] Telephone Encounter - Thony Dee MD - 03/14/2023 5:19 PM EDT Covering for Dr Payan while she is on vacation. Called patient in response to a message. There is some confusion regarding the prednisone taper. He is on pred 10mg since 03/06/2023 and his pill bottlesays: 10mg x 1 week and then 10mg x 2 weeks. No further instructions after that. I clarified to himthat the regimen is 10 mg x 1 week, then 9 mg X 1 week, then 8 mg X 1 week, 7mg X 1 week, then 6 mgX 2 week, then 5mg X 2 weeks, then 4 mg X 2 weeks, then 3 mg X 2 weeks, 2 mg X 2 weeks, then 1 mg X2 weeks. He verbalized understanding. I have sent a new rx in to his pharmacy. Also, he wanted to know about the lab results which were ordered on last visit. He had them done but they have not been faxed over to us. He will call the lab at [facility] to fax them. Thony Dee MD Rheumatology Fellow Pager: [phone] documented in this encounter Plan of Treatment Not on file documented as of this encounter Goals Goal Patient Goal Type Associated Problems Recent Progress Patient-Stated? Author DH Self-Management Patient Facing Action Plan No Danica Taylor, [facility] Note: Judson Robe Patel Jr. Is hoping to decrease his prednisone dosage and keep pain levels at a minimum. He is hoping that Actemra will be able to keep him walking since before prednisone he had a hard time standing up and walking around. documented as of this encounter Visit Diagnoses Not on filedocumented in this encounter Care Teams Marketing Secretary Relationship Specialty Start Date End Date Yesy Nagy APRN [address] [place] [address] PCP - General Geriatric Medicine 08/02/22 documented as of this encounter
--- OUTSIDE RECORDS SUMMARY | 2024-06-19 02:36 | XMS_ITS | Encounter Summary ---
Author Organization [facility] Address [facility] [place] [address] Care Team Providers Care Deputy Commonwealth'S Attorney Name Role Phone Yesy Nagy APRN Primary Care Provider [phone] Reason for Visit * Reason Onset Date Comments Results 02/26/2023 Encounter Details Date Type Department Care Team (Late st Contact Info) Description 02/26/2023 Telephone Neurology at [facility] [place] [id number] Srikanth Morris MD [facility] [place] [address] Results Social History Tobacco Use Types Packs/Day Years [...] Telephone Encounter - Dia Rosario RN - 02/26/2023 3:20 PM EDT Call placed to pt at the request of Dr. Morris to inform pt that per Dr. Morris, MRI shows only age related changes and KD scan is negative for parkinsons. Pt verbalized understanding. documented in this encounter Plan of Treatment Not on file documented as of this encounter Goals Goal Patient Goal Type Associated Problems Recent Progress Patient-Stated? Author DH Self-Management Patient Facing Action Plan No Danica Taylor, [facility] Note: Judson Patel Jr. Is hoping to decrease his prednisone dosage and keep pain levels at a minimum. He is hoping that Actemra will be able to keep him walking since before prednisone he had a hard time standing up and walking around. documented as of this encounter Visit Diagnoses Not on filedocumented in this encounter Care Teams Deputy Commonwealth'S Attorney Relationship Specialty Start Date End Date Yesy Nagy APRN [address] [place] [address] PCP - General Geriatric Medicine 08/02/22 documented as of this encounter
--- OUTSIDE RECORDS SUMMARY | 2024-06-19 02:36 | XMS_ITS | Encounter Summary ---
Author Organization [facility] [place] [place] [address] Care Team Providers Care Tying In Machine Operator Name Role Phone Yesy Nagy MALACHI Primary Care Provider Encounter Details Date Type Department Care Team (Late st Contact Info) Description 12/26/2022 Telephone [place] [address] Ananya Payan DO [facility] [place] [address] Social History Tobacco Use Types Packs/Day Years [...] Telephone Encounter - Ananya Payan DO - 12/26/2022 10:56 AM EST Labs reviewed, inflammatory markers are normal - Continue prednisone taper 9mg X 1 month, and taper 1 mg per month. documented in this encounter Plan of Treatment Not on file documented as of this encounter Goals Goal Patient Goal Type Associated Problems Recent Progress Patient-Stated? Author BRYAN Self-Management Patient Facing Action Plan No Danica Taylor, [facility] Note: Judson Patel Jr. Is hoping to decrease his prednisone dosage and keep pain levels at a minimum. He is hoping that Actemra will be able to keep him walking since before prednisone he had a hard time standing up and walking around. documented as of this encounter Visit Diagnoses Not on filedocumented in this encounter Care Teams Tying In Machine Operator Relationship Specialty Start Date End Date Yesy Nagy APRN [address] [place] [address] PCP - General Geriatric Medicine 08/02/22 documented as of this encounter
--- OUTSIDE RECORDS SUMMARY | 2024-06-19 02:36 | XMS_ITS | Encounter Summary ---
Author Organization [facility] Address [facility] [place] [address] Care Team Providers Care Coal Chute Worker Name Role Phone Yesy Nagy APRN Primary Care Provider [phone] Reason for Visit * Reason Comments Specialty Pharmacy Review Tocilizumab (A ctemra) Actpen 162mg/0.9mL Encounter Details Date Type Department Care Team (Late st Contact Info) Description 04/12/2023 Specialty Pharmacy Pharmacy at [facility] [place] [address] Yuliya Booker, [facility] Social History Tobacco Use Types [...] encounter Progress Notes * Yuliya Booker - 04/12/2023 11:59 PM EDT The [facility] has completed a benefits investigation for Judson Patel Jr. to review their eligibility to fill at [facility]. Per patient's medication list they are prescribed Actemra and the medication is currently filled at the [facility]. documented in this encounter Plan of Treatment Not on file documented as of this encounter Goals Goal Patient Goal Type Associated Problems Recent Progress Patient-Stated? Author BRYAN Self-Management Patient Facing Action Plan No Danica Taylor, [facility] Note: Judson Patel Jr. Is hoping to decrease his prednisone dosage and keep pain levels at a minimum. He is hoping that Actemra will be able to keep him walking since before prednisone he had a hard time standing up and walking around. documented as of this encounter Visit Diagnoses Not on filedocumented in this encounter Care Teams Coal Chute Worker Relationship Specialty Start Date End Date Yesy Nagy APRN [address] [place] [address] PCP - General Geriatric Medicine 08/02/22 documented as of this encounter
--- OUTSIDE RECORDS SUMMARY | 2024-06-19 02:36 | XMS_ITS | Encounter Summary ---
Author Organization [facility] [place] [address] Care Team Providers Care Rn Informatics Name Role Phone Yesy Nagy APRN Primary Care Provider [phone] Encounter Details Date Type Department Care Team (Late st Contact Info) Description 11/21/2022 Telephone [place] [phone] Ananya Payan, [facility] [address] Social History Tobacco Use Types Packs/Day Years [...] Facing Action Plan No Danica Taylor, [facility] Note: Judson Patel Jr. Is hoping to decrease his prednisone dosage and keep pain levels at a minimum. He is hoping that Actemra will be able to keep him walking since before prednisone he had a hard time standing up and walking around. documented as of this encounter Visit Diagnoses Not on filedocumented in this encounter Care Teams Rn Informatics Relationship Specialty Start Date End Date Yesy Nagy APRN [address] [place] [address] PCP - General Geriatric Medicine 08/02/22 documented as of this encounter
--- OUTSIDE RECORDS SUMMARY | 2024-06-19 02:36 | XMS_ITS | Encounter Summary ---
Author Organization [facility] Address [facility] [place] [address] Care Team Providers Care Petal Cutter Name Role Phone Yesy Nagy APRN Primary Care Provider Encounter Details Date Type Department Care Team (Late st Contact Info) Description 01/31/2023 [place] [phone] Danica Taylor [facility] Social History Tobacco Use Types Packs/Day Years [...] encounter Miscellaneous Notes * Telephone Encounter - Danica Taylor RP - 01/31/2023 2:55 PM EST I spoke with patient regarding Actemra again. He's worried about starting Actemra and being on it for a while. He asked why he just can't stay on prednisone. I explained that prednisone has a lot of ferry terminal supervisor effects such as developing type 2 diabetes, osteoporosis, GI effects, ocular effects, cushingoid features, cardiovascular effects, etc that Actemra does not have. Prednisone isn't a ferry terminal supervisor solution and Actemra works really well in treating GCA. The goal is to taper the prednisone while initiating Actemra. He has an upcoming appointment with Dr. Payan on 02/06 and he will discuss his concerns again with her. Forwarding this message to her. documented in this encounter Plan of Treatment Not on file documented as of this encounter Goals Goal Patient Goal Type Associated Problems Recent Progress Patient-Stated? Author DH Self-Management Patient Facing Action Plan No Danica Taylor, [facility] Note: Judson Robe Patel Jr. Is hoping to decrease his prednisone dosage and keep pain levels at a minimum. He is hoping that Actemra will be able to keep him walking since before prednisone he had a hard time standing up and walking around. documented as of this encounter Visit Diagnoses Not on filedocumented in this encounter Care Teams Petal Cutter Relationship Specialty Start Date End Date Yesy Nagy APRN [address] [place] [address] PCP - General Geriatric Medicine 08/02/22 documented as of this encounter
--- OUTSIDE RECORDS SUMMARY | 2024-06-19 02:36 | XMS_ITS | Encounter Summary ---
Author Organization [facility] Address [facility] [place] [address] Care Team Providers Care Mds Rn Name Role Phone Yesy Nagy APRN Primary Care Provider Encounter Details Date Type Department Care Team (Late st Contact Info) Description 10/18/2022 [place] [phone] Ananya Payan DO [facility] [address] Social History Tobacco Use Types Packs/Day Years [...] Telephone Encounter - Ananya Payan DO - 10/18/2022 5:45 PM EST Spoke with pt, Had PCP appointment today - noted some gait imbalance. He has had this since , he reports it is stable. - he ordered imaging of his head -I has ordered an MTI, but pt has declined getting the scan due at the time. - pt got labs today - will request result and call PCP on Sunday to discuss, here office is closed over the holiday. - he denies TA tenderness vision changes, temporal TORRES. No joint pain. Ananya Payan DO Rheumatology Fellow Pager: [phone] documented in this encounter Plan of Treatment Not on file documented as of this encounter Goals Goal Patient Goal Type Associated Problems Recent Progress Patient-Stated? Author DH Self-Management Patient Facing Action Plan No Danica Taylor, [facility] Note: Judson Nagel Jorge Cisse. Is hoping to decrease his prednisone dosage and keep pain levels at a minimum. He is hoping that Actemra will be able to keep him walking since before prednisone he had a hard time standing up and walking around. documented as of this encounter Visit Diagnoses Not on filedocumented in this encounter Care Teams Mds Rn Relationship Specialty Start Date End Date Yesy Nagy APRN [address] [place] [address] PCP - General Geriatric Medicine 08/02/22 documented as of this encounter
--- OUTSIDE RECORDS SUMMARY | 2024-06-19 02:36 | XMS_ITS | Encounter Summary ---
Author Organization [facility] [place] [address] Care Team Providers Care Cellophane Bath Mixer Name Role Phone Yesy Nagy APRN Primary Care Provider Encounter Details Date Type Department Care Team (Late st Contact Info) Description 11/21/2022 Telephone [place] [phone] Ananya Payan, [facility] [place] [address] Social History Tobacco Use Types Packs/Day Years [...] Taylor, [facility] Note: Judson Patel Jr. Is hoping to decrease his prednisone dosage and keep pain levels at a minimum. He is hoping that Actemra will be able to keep him walking since before prednisone he had a hard time standing up and walking around. documented as of this encounter Visit Diagnoses Not on filedocumented in this encounter Care Teams Cellophane Bath Mixer Relationship Specialty Start Date End Date Yesy Nagy APRN [address] [place] [address] PCP - General Geriatric Medicine 08/02/22 documented as of this encounter
--- OUTSIDE RECORDS SUMMARY | 2024-06-19 02:36 | XMS_ITS | Encounter Summary ---
Author Organization [facility] [place] [address] Care Team Providers Care Data Entry Analyst Name Role Phone Yesy Nagy APRN Primary Care Provider Encounter Details Date Type Department Care Team (Late st Contact Info) Description 01/30/2023 [place] [phone] Danica Taylor, [facility] Social History Tobacco Use Types [...] Patient Facing Action Plan No Danica Taylor, [facility] Note: Judson Patel Jr. Is hoping to decrease his prednisone dosage and keep pain levels at a minimum. He is hoping that Actemra will be able to keep him walking since before prednisone he had a hard time standing up and walking around. documented as of this encounter Visit Diagnoses Not on filedocumented in this encounter Care Teams Data Entry Analyst Relationship Specialty Start Date End Date Yesy Nagy APRN [address] [place] [address] PCP - General Geriatric Medicine 08/02/22 documented as of this encounter
--- OUTSIDE RECORDS SUMMARY | 2024-06-19 02:36 | XMS_ITS | Encounter Summary ---
Author Organization [facility] Address [facility] [place] [address] Care Team Providers Care Cereal Supervisor Name Role Phone Yesy Nagy MALACHI Primary Care Provider [phone] Reason for Visit * Diagnostic Test (Routine) - Closed Specialty Diagnoses / Procedures Referred By Contac t Referred To Contact Radiology Diagnoses Gait instability Tremor Procedures NM Brain Imaging for Parkinsons Disease Srikanth Morris MD [facility] [place] [address] [place] [address] Referral ID Status Reason Start Date Expiration Date V isits Requested Visits Authorized [id number] Closed Specialty Service Requested 01/23/2023 07/23/2024 1 1 Encounter Details Date Type Department Care Team (Latest Contact Info) Description 02/23/2023 8:24 AM EDT - 02/23/2023 12:29 PM EDT Hospital Encounter [place] [phone] Srikanth Morris MD [facility] [place] [address] Discharge Disposition: Home Social History [...] (FISH OIL ORAL) Take by mouth. Ascorbic Zgay-Trrbqymdc-Qmi (Emergen-C) 1,000 mg Powder Effervescent in Packet [...] mg/0.9 mL Pen InjectorIndications: GCA (giant cell arteritis),prison current use of systemic steroids Inject 0.9 [...] Gait instability Tremor documented in this encounter Visit Diagnoses Not on filedocumented in this encounter Administered Medications Inactive Administered Medications - up to 3 most recent administrations Medication Order MAR Action Action Date Dose Rate Site ioflupane (I-123) (DATSCAN) injection 0-6 mCi 0-6 mCi, Intravenous, ONCE PRN, 1 dose, Starting on Sun02/23/23 at 0947, Until Sun02/23/23 at 0940, Per Protocol, Radiology Contrast, Routine Given 02/23/2023 9:40 AM EDT 4.9 mCi Right Arm documented in this encounter Care Teams Cereal Supervisor Relationship Specialty Start Date End Date Yesy Nagy APRN [address] [place] [address] PCP - General Geriatric Medicine 08/02/22 documented as of this encounter
--- OUTSIDE RECORDS SUMMARY | 2024-06-19 02:36 | XMS_ITS | Encounter Summary ---
Author Organization [facility] Address [facility] [place] [address] Care Team Providers Care Application Coordinator Name Role Phone Yesy Nagy APRN Primary Care Provider Encounter Details Date Type Department Care Team (Late st Contact Info) Description 11/21/2022 Orders [place] [phone] Ananya Payan, [facility] [place] [address] GCA (giant cell arteritis) Social History Tobacco [...] of this encounter Plan of Treatment Scheduled Orders Name Type Priority Associated Diagnoses Orde r Schedule Sedimentation rate Lab Routine GCA (giant cell arteritis) Expected: 11/21/2022 (Approximate), Expires: 05/23/2023 documented as of this encounter Goals Goal Patient Goal Type Associated Problems Recent Progress Patient-Stated? Author BRYAN Self-Management Patient Facing Action Plan No Danica Taylor, [facility] Note: Judson Patel Jr. Is hoping [...] arteritis documented in this encounter Care Teams Application Coordinator Relationship Specialty Start Date End Date Yesy Nagy APRN [address] [place] [address] PCP - General Geriatric Medicine 08/02/22 documented as of this encounter
--- OUTSIDE RECORDS SUMMARY | 2024-06-19 02:36 | XMS_ITS | Encounter Summary ---
Author Organization [facility] Address [facility] [place] [address] Care Team Providers Care Pure Pak Machine Operator Name Role Phone Yesy Nagy APRN Primary Care Provider [phone] Reason for Visit * Reason Comments Specialty Refill Management Encounter Details Date Type Department Care Team (Late st Contact Info) Description 04/17/2023 Specialty [place] [phone] Winifred Crisostomo RPH Social History Tobacco Use Types Packs/Day [...] as of this encounter Progress Notes * Winifred Crisostomo RPH - 04/17/2023 11:15 AM EDT Clinical Management Plan: Refill Specialty Pharmacy Consultation; Winifred Crisostomo [facility] Comprehensive Medication Management (CMM) Judson Patel Jr. Mr. Judson Nagel Jorge Cisse. is a 72 y.o. (1950) male who was contacted in regard to a specialty medication refill reminder. Contact made with patient regarding Actemra. A review of the medication therapy was performed. The medication was refilled as scheduled, and all medication related questions and concerns were addressed. The specialty pharmacy staff will follow up with the patient 5-7 daysprior to next refill. He says his right eye started to hurting last Sunday. He says it hurts when he touches it or squints hard. He notes no changes in meds, new glasses, etc. He also notes toe fungus is worsening, now it is on his finger after an injury. Patient says he is applying topicals to the toe fungus now. Was a change made to the Care Plan: No Allergies and Drug intolerance: No Known Allergies Medication Reconciliation Discrepancies (compared to [facility] med list) No Specialty Pharmacy Refill Questionnaire 04/17/2023 Refill Questionnaire What is the name of the specialty medication you are refilling? Actemra Are you taking any new medications? No Any new medical condition? No Any new allergies? No Any new side effects that are bothersome? No What date will you need this fill by? 04/26/2023 Adherence: Any missed doses? No Patient understands no changes to current drug regimen were made. Winifred Crisostomo RPH 04/17/23 11:17 AM documented in this encounter Plan of Treatment Not on file documented as of this encounter Goals Goal Patient Goal Type Associated Problems Recent Progress Patient-Stated? Author DH Self-Management Patient Facing Action Plan No Danica Taylor [facility] Note: Judson Robe Patel Jr. Is hoping to decrease his prednisone dosage and keep pain levels at a minimum. He is hoping that Actemra will be able to keep him walking since before prednisone he had a hard time standing up and walking around. documented as of this encounter Visit Diagnoses Not on filedocumented in this encounter Care Teams Pure Pak Machine Operator Relationship Specialty Start Date End Date Yesy Nagy APRN [address] [place] [address] PCP - General Geriatric Medicine 08/02/22 documented as of this encounter
--- OUTSIDE RECORDS SUMMARY | 2024-06-19 02:36 | XMS_ITS | Encounter Summary ---
Author Organization [facility] [place] [address] Care Team Providers Care Chief Compliance Officer Name Role Phone Yesy Nagy APRN Primary Care Provider Encounter Details Date Type Department Care Team (Latest Contact Info) Description 01/23/2023 Travel Social History Tobacco Use Types Packs/Day [...] Facing Action Plan No Danica Taylor, [facility] Note: Judson Robe Patel Jr. Is hoping to decrease his prednisone dosage and keep pain levels at a minimum. He is hoping that Actemra will be able to keep him walking since before prednisone he had a hard time standing up and walking around. documented as of this encounter Visit Diagnoses Not on filedocumented in this encounter Care Teams Chief Compliance Officer Relationship Specialty Start Date End Date Yesy Nagy APRN [address] [place] [address] PCP - General Geriatric Medicine 08/02/22 documented as of this encounter
--- OUTSIDE RECORDS SUMMARY | 2024-06-19 02:36 | XMS_ITS | Encounter Summary ---
Author Organization [facility] [place] [address] Care Team Providers Care Billet Grinder Name Role Phone Yesy Nagy MALACHI Primary Care Provider Encounter Details Date Type Department Care Team (Late st Contact Info) Description 01/29/2023 Telephone [place] [phone] Landy Monson RN Social History [...] Telephone Encounter - Landy Monson RN - 01/29/2023 3:39 PM EST RTC to the patient. Nurse called the patient back, explained we from nursing did not call but would reach out to the Specialty pharmacy to see if they did. Patient states thank you and will be home. Message sent to pharmacy. documented in this encounter Plan of Treatment Not on file documented as of this encounter Goals Goal Patient Goal Type Associated Problems Recent Progress Patient-Stated? Author BRYAN Self-Management Patient Facing Action Plan No Danica Taylor, [facility] Note: Judson Patel Jr. Is hoping to decrease his prednisone dosage and keep pain levels at a minimum. He is hoping that Actemra will be able to keep him walking since before prednisone he had a hard time standing up and walking around. documented as of this encounter Visit Diagnoses Not on filedocumented in this encounter Care Teams Billet Grinder Relationship Specialty Start Date End Date Yesy Nagy APRN [address] [place] [address] PCP - General Geriatric Medicine 08/02/22 documented as of this encounter
--- OUTSIDE RECORDS SUMMARY | 2024-06-19 02:36 | XMS_ITS | Encounter Summary ---
Author Organization [facility] Address [facility] [place] [address] Care Team Providers Care Audit Practice Intern Name Role Phone Yesy Nagy APRN Primary Care Provider Reason for Referral * Diagnostic Test (Routine) - Closed Specialty Diagnoses / Procedures Referred By Contac t Referred To Contact Radiology Diagnoses Gait instability Tremor Procedures MRI Brain wo Contrast Greg Vivar MD [facility] [place] [address] [facility] [place] [address] Referral ID Status Reason Start Date Expiration Date V isits Requested Visits Authorized [id number] Closed Specialty Service Requested 01/23/2023 07/23/2024 1 1 * Physical Therapy (Routine) - Closed Specialty Diagnoses / Procedures Referred By Socrates pleitez Referred To Contact Diagnoses Gait instability [facility] [place] [address] Referral ID Status Reason Start Date Expiration Date V isits Requested Visits Authorized [id number] Closed Evaluate and Treat 01/23/2023 07/22/2023 12 12 * Diagnostic Test (Routine) - Closed Specialty Diagnoses / Procedures Referred By Contac t Referred To Contact Radiology Diagnoses Gait instability Tremor Procedures NM Brain Imaging for Parkinsons Disease Greg Vivar MD [facility] [place] [address] [facility] [place] [address] Referral ID Status Reason Start Date Expiration Date V isits Requested Visits Authorized [id number] Closed Specialty Service Requested 01/23/2023 07/23/2024 1 1 Encounter Details Date Type Department Care Team (Late st Contact Info) Description 01/23/2023 9:30 AM EST Office Visit Neurology at [place] [phone] Greg Vivar MD [facility] [place] [address] Gait instability; Tremor Social History Tobacco Use Types Packs/Day Years [...] as of this encounter Progress Notes * Greg Vivar MD - 01/23/2023 9:30 AM [place] [address] 01/23/2023 Patient name: Judson Patel Jr. Date of : 1950 Referring provider: Ananya Payan, [facility] [address] HISTORY REASON FOR REFERRAL/CHIEF COMPLAINT: Gait instability HISTORY OF PRESENTING COMPLAINTS: Referred for gait instability. He says he has balance issues and is not able to walk normally. Thishas been going on for quite a while. He has had milder symptoms in the past which would go away andcome back to normal. Lately its not getting better. He says he'd like to walk normally. He has been using a cane since his walking has worsened. He had falls trying to step on curb and Fracture of left arm secondary to that. He has some numbness in his toes and feet. Occasionally has light headedness. He is being seen in Rheumatology here for PMR/ GCA and has been on oil heaterman steroids. Was seen in Neurology here in the past with various symptoms and referred to Rheumatology He has an MRI ordered in Jul 2022 through Rheumatology but still pending. He says he is now willing to undergo an MRI which he previously declined. Per reports he has history of prior alcoholism and neuropathy. PMHx: No past medical history on file. No past surgical history on file. PMR HTN Family History: No family history on file. No family history of neurologic illness Social History: reports that he quit smoking about 36 years ago. He has never used smokeless tobacco. He reports current alcohol use. He reports that he does not use drugs. No flowsheet data found. 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 Lives in [place] by himself. He stopped drinking alcohol after being on prednisone. Review of systems: [x] Review of systems otherwise negative Medications: Current Outpatient Medications on File Prior to Visit Medication Sig Dispense Refill ??? predniSONE (Deltasone) 1 mg Tablet Take [...] OIL ORAL) Take by mouth. ??? Ascorbic Iiqh-Bxltungbv-Qkp (Emergen-C) 1,000 mg Powder Effervescent in Packet Take by mouth. ??? VITAMIN B COMPLEX-100 ORAL Take by mouth. ??? tamsulosin (FLOMAX) 0.4 mg Capsule, Sust. Release 24 hr Take 0.4 mg by mouth daily. ??? aspirin 325 mg Tablet Take 325 mg by mouth daily. No current facility-administered medications on file prior to visit. Allergies: No Known Allergies EXAMINATION Vitals: There were no vitals taken for this visit. General Examination: Appearance: alert, no distress Cardiovascular: Rate regular, S1S2 normal, no murmur Respiratory: Symmetric expansion, lungs clear to auscultation Extremity: no edema Skin: No rashes noted Neurological Examination o Higher functions: - Speech: fluent, no aphasia/dysarthria or dysphonia - Alert and oriented. o Cranial Nerves - II-XII: Pupils bilaterally equal and symmetric conjugate gaze, reacting to light. No ptosis/nystagmus. Vision normal. No field deficits. EOMI. No facial droop. - Hearing reduced bilaterally, more so on the right side. o Reflexes - +2 Bilaterally biceps, BR , knee and absent ankles. o Motor and Coordination - Normal tone, bulk strength and coordination of right and left sided muscles. - Left UE tremors. o Sensory - Sensory gradient to vibration below ankles. o Skull and Spine/ Gait - Axial stiffness - Gait imbalance. - Tandem: Unable LABS AND IMAGING Labs GENERAL THYROID: No results found for: TSH, K1DXRXH, FREET4, TT4, THYROIDAB, THGAB Folate Lab Results Component Value Date SFOLATE 18.4 06/09/2016 ESR Lab Results Component Value Date SEDRATE 60 (H) 08/08/2022 CRP Lab Results Component Value Date CRP 20.2 (H) 08/08/2022 B12 Lab Results Component Value Date [id number] 08/08/2022 CKNo results found for: CK Angiotensin Convertase Lab Results Component Value Date MARIETTA 11 06/09/2016 INFECTIONS HIVNo results found for: HIV12 HEPATITIS PANELNo results found for: HAV, HEPBSAB, HBEAG, HEPBSAG, HEPCAB AUTOIMMUNE PANEL ITA Lab Results Component Value Date ITA Neg 06/09/2016 DSDNANo results found for: DNAABDS BEBO BEBO Ab Date Value Ref Range Status 06/09/2016 (A) Final Test Result Flag Unit RefValue Ab to Extractable Nuclear Ag Eval,S SS-A/Ro Ab, IgG, S <0.2 U -- REFERENCE VALUE -- <1.0 (Negative) SS-B/La Ab, IgG, S <0.2 U -- REFERENCE VALUE -- <1.0 (Negative) Sm Ab, IgG, S <0.2 U -- REFERENCE VALUE -- <1.0 (Negative) RN PLACEMENT Ab, IgG, S <0.2 U -- REFERENCE VALUE -- <1.0 (Negative) Scl 70 Ab, IgG, S 7.6 H U -- REFERENCE VALUE -- <1.0 (Negative) Interpretation: Positive (>=1.0) Megan 1 Ab, IgG, S <0.2 U -- REFERENCE VALUE -- <1.0 (Negative) Test Performed by: [place] [id number] Bid Clerk: Stephen Caldera II, M.D., Ph.D. C3,C4, COMPLEMENTSNo results found for: C3, C4 CARDIOLIPIN, LUPUSNo components found for: CARDIOLIPINANTIBODY, LUPUS, ANTICOAGULANT CELIAC: TTG, GLIADIN, ENDOMYSIALNo components found for: TTRANSGLUTAMINASEANTIBODY ANTIGLIADINANTIBODY VASCULITIS: C,P,ANCA, MPONo results found for: PANCA, CANCA, MYELOP, PR3AB NMONo components found for: NEUROMYELITISOPTICAANTIBODY MG: ACHRAB, Anit MuSK, LEMSNo components found for: ACETYLCHOLINERECEPTORABBINDING, LEMSANTIBODY, ANTISKELETALMUSCLEANTIBODY CRYOGLOBULINSNo components found for: CRYOGLOBULINS METABOLIC CERULOPLASMINNo components found for: CERULOPLASMIN BETA 2 MICROGLOBULINNo results found for: B2MG Lab Results Component Value Date TPROTEINPEP 6.7 08/08/2022 ALBELECT 4.11 08/08/2022 ALPHA1 0.19 08/08/2022 ALPHA2 1.04 (H) 08/08/2022 GAMMAGLOB 0.64 08/08/2022 APB1 None Detected 08/08/2022 CORTISOLNo results found for: CORTISOL LDH No results found for: LDH NUTRITIONAL VITAMIN DNo results found for: 25OHVITD PRE ALBUMINNo results found for: PREALBUMIN FERRITINNo results found for: IRON COPPERNo results found for: COPPER PERIPHERAL NEUROPATHY HEMOGLOBIN A1C Lab Results Component Value Date HA1C 6.0 (H) 06/21/2016 LIPID PROFILENo results found for: CHLPL, HDL, CHOLHDL, TRIG, LDLCHOL, LDLDIRECT NIKKI 65No results found for: SQL15TK ANTI GM1,ANTI SGPG, MAG@RESUFAST (MAGAUTOAB,SGPG,MAGWB,GM1AB)@ HEAVY METAL SCREENNo results found for: LEAD, ARSENIC METHYLMLONIC ACIDNo results found for: METHYLMAL IgA, IGG No results found for: IGA, IGG CSF PANEL Lab Results Component Value Date LYMEAB Neg 06/09/2016 PARANEOPLASTIC PANEL No results found for: PARANEOINTRP, ANNA1, ANNA2, ANNA3, AGNA1, PCA1, PCA2, PCATYPETR, AMPHIPHYSIN,EPFF6JOV, STRIATMSCLAB, CACHABPQTYPE, CACHABNTYPE, ACHRBINDAB, NEUROKCHAB, NMDARECEPTOR, OVF19KM THROMBOSIS HOMEOCYSTEINENo results found for: HOMOCYSTEINE THROMBOSIS PANELNo results found for: ACAIGM, F4CIAOEOFTW FACTOR V LEIDEN No components found for: FACTORVLEIDEN PROTEIN C,SNo components found for: PROTEINC, PROTEINS ANTITHROMBIN IIINo components found for: ANTITHROMBINIII Miscellaneous Send outsNo results found for: KAROLINECSENDOUT MISCMAYO ASSESSMENT, PLAN & RECOMMENDATIONS ASSESSMENT: 72 Y M with a diagnosis of PMR/ GCA on oil heaterman steroids, HTN h/o alcoholism peripheral neuropathy referred for gait imbalance. Symptoms have been ongoing for a long time. He was previously evaluated here in Neurology in 2016. On evaluation, he has mild hearing and peripheral neuropathy with gait imbalance. 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 To r/o early PD PLAN/RECOMMENDATIONS: ??? His imbalance seems related to a combination of vestibular dysfunction and peripheral neuropathy. Given axial stiffness and tremors PD needs to be ruled out. Neuropathy likely from prior alcoholism and borderline DM status. ??? MRI Brain as planned. ??? KD scan to evaluate for parkinsonism. ??? Balance PT referral given. To be done locally. ??? Follow up in 3 months. Greg Vivar MD Department of Neurology [facility] documented in this encounter Miscellaneous Notes * Addendum Note - Greg Vivar MD - 01/23/2023 9:30 AM ESTAddended by: GREG VIVAR on: 01/23/2023 09:48 AM Modules accepted: Orders documented in this encounter Plan of Treatment Scheduled Referrals Name Type Priority Associated Diagnoses Orde r Schedule Referral to Physical Therapy Outpatient Referral Routine Gait instability Ordered: 01/23/2023 documented as of this encounter Goals Goal Patient Goal Type Associated Problems Recent Progress Patient-Stated? Author Self-Management Patient Facing Action Plan No Danica Taylor, [facility] Note: Judson Patel Jr. Is hoping to decrease his prednisone dosage and keep pain levels at a minimum. He is hoping that Actemra will be able to keep him walking since before prednisone he had a hard time standing up and walking around. documented as of this encounter Results * NM Brain Imaging [...] who have questions please contact the health healthcare social worker that requested your imaging first. ? Electronically signed by: Seth Guillen MD, [facility] ([phone]), at 02/23/2023 4:35 PM Narrative 02/23/2023 4:35 PM EDT EXAMINATION: NM [...] patients who have questions please contactthe health healthcare social worker that requested your imaging first. Electronically signed by: Seth Guillen MD, [facility]([phone]), at 02/23/2023 4:35 PM rGeg Vivar MD [facility] ORDERABLES * MRI Brain wo Contrast (02/23/2023 1:36 [...] who have questions please contact the health healthcare social worker that requested your imaging first. ? Electronically signed by: Jack Srinivasan [facility] ([phone]), at 02/23/2023 5:06 PM Narrative 02/23/2023 5:06 [...] patients who have questions please contactthe health healthcare social worker that requested your imaging first. Electronically signed by: Jack Srinivasan MD, [facility]([phone]), at 02/23/2023 5:06 PM Greg Vivar MD IM MRI ORDERABLES documented in this encounter Visit Diagnoses Diagnosis Gait instability Abnormality of gait Tremor Abnormal involuntary movements Gait instability Abnormality of gait Tremor Abnormal involuntary movements Gait instability Abnormality of gait Tremor Abnormal involuntary movements documented in this encounter Care Teams Audit Practice Intern Relationship Specialty Start Date End Date Yesy Nagy APRN [address] [place] [address] PCP - General Geriatric Medicine 08/02/22 documented as of this encounter
--- OUTSIDE RECORDS SUMMARY | 2024-06-19 02:36 | XMS_ITS | Encounter Summary ---
Author Organization [facility] Address [facility] [place] [address] Care Team Providers Care Marina Porter Name Role Phone Yesy Nagy MALACHI Primary Care Provider Encounter Details Date Type Department Care Team (Late st Contact Info) Description 12/18/2022 Tele[place] [phone] Emma Zuñiga LPN Social History [...] Encounter - Emma Zuñiga LPN - 12/18/2022 3:53 PM EST This com writer called and spoke with pharmacy in reference to Prednisone taper. Pharmacy is able to fill partial order for a quantity of 392 pills for 42 days. Script will be kepton file for next refill. Patient notified and knows to call with questions/concerns documented in this encounter Plan of Treatment [...] on filedocumented in this encounter Care Teams Marina Porter Relationship Specialty Start Date End Date Yesy Nagy APRN [address] [place] [address] PCP - General Geriatric Medicine 08/02/22 documented as of this encounter
--- OUTSIDE RECORDS SUMMARY | 2024-06-19 02:36 | XMS_ITS | Encounter Summary ---
Author Organization [facility] Address [facility] [place] [address] Care Team Providers Care Trade Analyst Name Role Phone Yesy Nagy APRN Primary Care Provider [phone] Encounter Details Date Type Department Care Team (Late st Contact Info) Description 01/23/2023 Orders [place] [phone] Ananya Payan, [facility] [place] [address] family specialist current use of systemic steroids; GCA (giant cell arteritis); Medication monitoring encounter Social History Tobacco Use Types Packs/Day Years [...] Patient Facing Action Plan No Danica Taylor, [facility] Note: Judson Patel Jr. Is hoping to decrease his prednisone dosage and keep pain levels at a minimum. He is hoping that Actemra will be able to keep him walking since before prednisone he had a hard time standing up and walking around. documented as of this encounter Visit Diagnoses Diagnosis family specialist current use of systemic steroids Encounter for long-term (current) use of steroids GCA (giant cell arteritis) Giant cell arteritis Medication monitoring encounter Encounter for therapeutic drug monitoring documented in this encounter Care Teams Trade Analyst Relationship Specialty Start Date End Date Yesy Nagy APRN [address] [place] [address] PCP - General Geriatric Medicine 08/02/22 documented as of this encounter
--- OUTSIDE RECORDS SUMMARY | 2024-06-19 02:36 | XMS_ITS | Encounter Summary ---
Author Organization [facility] [place] [address] Care Team Providers Care Dump Truck Driver Off Highway Name Role Phone Yesy Nagy APRN Primary Care Provider Encounter Details Date Type Department Care Team (Late st Contact Info) Description 11/01/2022 Telephone [place] [phone] Landy Monson RN Social History [...] Telephone Encounter - Landy Monson RN - 11/01/2022 2:52 PM EST Call back to the Radiology department,no answer. Left message on voicemail with the patient name and date of . Advised Ananya Payan. is still asking that the MRI Angiogram be done. Asked them to contact patient to schedule. Provided the number to return call if they needed to RTC to nurse. * Telephone Encounter - Landy Monson RN - 11/01/2022 2:03 PM EST Dusty, from [facility] Radiology calls today asking if the order for the MRI Angiogram Head and Brain is still needed? Nurse called Radiology,Dusty not available currently. The MRI was ordered 08/25/2022. Dusty asked for a call back with answer. Message sent to the Provider to review and advise. documented in this encounter Plan of Treatment Not on file documented as of this encounter Goals Goal Patient Goal Type Associated Problems Recent Progress Patient-Stated? Author DH Self-Management Patient Facing Action Plan No Danica Taylor, [facility] Note: Judson Patel Jr. Is hoping to decrease his prednisone dosage and keep pain levels at a minimum. He is hoping that Actemra will be able to keep him walking since before prednisone he had a hard time standing up and walking around. documented as of this encounter Visit Diagnoses Not on filedocumented in this encounter Care Teams Dump Truck Driver Off Highway Relationship Specialty Start Date End Date Yesy Nagy APRN [address] [facility] [place] [address] PCP - General Geriatric Medicine 08/02/22 documented as of this encounter
--- OUTSIDE RECORDS SUMMARY | 2024-06-19 02:36 | XMS_ITS | Encounter Summary ---
Author Organization [facility] [place] [address] Care Team Providers Care Inspector Missile Name Role Phone Yesy Nagy APRN Primary Care Provider Encounter Details Date Type Department Care Team (Latest Contact Info) Description 10/24/2022 Travel Social History Tobacco Use Types Packs/Day [...] on filedocumented in this encounter Care Teams Inspector Missile Relationship Specialty Start Date End Date Yesy Nagy APRN [address] [place] [address] PCP - General Geriatric Medicine 08/02/22 documented as of this encounter
--- OUTSIDE RECORDS SUMMARY | 2024-06-19 02:36 | XMS_ITS | Encounter Summary ---
Author Organization [facility] Address [facility] [place] [address] Care Team Providers Care Director Of Financial Aid Name Role Phone Yesy Nagy CUSTOMS ENTRY CLERK Primary Care Provider Encounter Details Date Type Department Care Team (Late st Contact Info) Description 01/22/2023 Orders [place] [phone] Ananya Payan, [facility] [place] [address] lobsterman current use of systemic steroids; GCA (giant [...] Patient Facing Action Plan No Danica Taylor, [facility] Note: Judson Patel Jr. Is hoping to decrease his prednisone dosage and keep pain levels at a minimum. He is hoping that Actemra will be able to keep him walking since before prednisone he had a hard time standing up and walking around. documented as of this encounter Results * (ABNORMAL) Sedimentation rate (01/23/2023 9:59 AM EST) Sed Rate 51(H) 3 - 46 mm/hr [facility] Comment: Effective November 05, 2019 new capillary photometric technology has resulted in a change in reference ranges. It is recommended that each ESR result be reviewed with its own age appropriate reference range. Blood 01/23/2023 9:59 AM EST 01/23/2023 10:08 AM EST Narrative Resulting Agency Comment Spec In Lab Linda Shaikh DO HEMATOLOGY ORDERAB LES Performing Organization Address City/[facility]/ZIP Co de Phone Number [facility] [place] [address] * (ABNORMAL) CRP, acute inflammation (01/23/2023 9:59 AM EST) CRP 5.2(H) <=4.9 mg/L [facility] Blood 01/23/2023 9:59 AM EST 01/23/2023 10:08 AM EST Narrative Resulting Agency Comment Spec In Lab Linda Shaikh DO CHEMISTRY ORDERABL ES Performing Organization Address [facility] Co de Phone Number [facility] [place] [address] documented in this encounter Visit Diagnoses Diagnosis lobsterman current use of systemic steroids Encounter for long-term (current) use of steroids GCA (giant cell arteritis) Giant cell arteritis documented in this encounter Care Teams Director Of Financial Aid Relationship Specialty Start Date End Date Yesy Nagy APRN [address] [place] [address] PCP - General Geriatric Medicine 08/02/22 documented as of this encounter
--- OUTSIDE RECORDS SUMMARY | 2024-06-19 02:36 | XMS_ITS | Encounter Summary ---
Author Organization [facility] [place] [address] Care Team Providers Care Information Clerk [employer] Name Role Phone Yesy Nagy MALACHI Primary Care Provider Encounter Details Date Type Department Care Team (Late st Contact Info) Description 10/03/2022 Telephone [place] [address] Dayna Paez RN Social History Tobacco Use Types Packs/Day [...] Telephone Encounter - Dayna Paez RN - 10/03/2022 12:48 PM EST Judson calls to ask if he can have the Medication removed from his insurance. I advised Judson once released from Pharmacy they can't take back. Judson states that reimbursement needs to go to [employer] regardless because he is not taking the medication. Judson states that he notified [employer] he is not taking the drug and did not start it. Judson states that Dr. Payan was working on this for him. Danica Taylor, [facility] sent to Dayna Paez RN Cc: Ananya Payan, DO Caller: Unspecified (Today, ??8:43 AM) I reached out to Judson. He understands that we cannot reimburse him the $4 or reverse the claim through his insurance. There was a miscommunication about the cost (someone told him it was $4000). He is aware that $4 that was charged on his credit card. He is mainly concerned that Actemra can cause and no one told this to him in the clinic. (Saw this on package insert when he received the med). He is communicating with someone to donate the Actemra to a local clinic. I will d/c the medication from specialty services at this time. I told Judson to give me a call if he has any further questions regarding the insurance or medication. ?? documented in this encounter Plan of Treatment Not on file documented as of this encounter Goals Goal Patient Goal Type Associated Problems Recent Progress Patient-Stated? Author DH Self-Management Patient Facing Action Plan No Danica Taylor, [facility] Note: Judson Patel Is hoping to decrease his prednisone dosage and keep pain levels at a minimum. He is hoping that Actemra will be able to keep him walking since before prednisone he had a hard time standing up and walking around. documented as of this encounter Visit Diagnoses Not on filedocumented in this encounter Care Teams Information Clerk [employer] Relationship Specialty Start Date End Date Yesy Nagy APRN [address] [place] [address] PCP - General Geriatric Medicine 08/02/22 documented as of this encounter
--- OUTSIDE RECORDS SUMMARY | 2024-06-19 02:36 | XMS_ITS | Encounter Summary ---
[place] [address] Care Team Providers Care Rn Staffing Name Role Phone Yesy Nagy MALACHI Primary Care Provider Encounter Details Date Type Department Care Team (Latest Contact Info) Description 01/23/2023 10:30 AM EST Laboratory Appointment Lab [address] [place] [address] [facility] current use of systemic steroids; GCA (giant cell arteritis); Immunosuppressed status Social History Tobacco Use Types [...] Action Plan No Danica Taylor, [facility] Note: Judson Patel Jr. Is hoping to decrease his prednisone dosage and keep pain levels at a minimum. He is hoping that Actemra will be able to keep him walking since before prednisone he had a hard time standing up and walking around. documented as of this encounter Procedures Procedure Name Priority Date/Time Associated Diagnosis Comments HC VENIPUNCTURE Routine 01/23/2023 9:59 AM EST [facility] current use of systemic steroids GCA (giant cell arteritis) HC HEPATITIS C ANTIBODY Routine 01/23/2023 9:59 AM EST GCA (giant cell arteritis) Immunosuppressed status HC HEPATITIS B CORE AB Routine 01/23/2023 9:59 AM EST GCA (giant cell arteritis) Immunosuppressed status HC HIV SCREEN, 4TH GENERATION Routine 01/23/2023 9:59 AM EST GCA (giant cell arteritis) Immunosuppressed status HC HEPATITIS B SURFACE AB Routine 01/23/2023 9:59 AM EST GCA (giant cell arteritis) Immunosuppressed status HC HEPATITIS B SURFACE AG Routine 01/23/2023 9:59 AM EST GCA (giant cell arteritis) Immunosuppressed status HC ESR-SEDIMENTATION RATE, BLOOD Routine 01/23/2023 9:59 AM EST [facility] current use of systemic steroids GCA (giant cell arteritis) HEPATIC FUNCTION PANEL Routine 01/23/2023 9:59 AM EST documented in this encounter Results * Hepatic Function Panel (01/23/2023 9:59 AM EST) Total Protein 6.8 6.1 - 8.0 g/dL [facility] Albumin 4.2 3.2 - 5.2 g/dL [facility] AST 18 0 - 39 unit/L [facility] ALT 14 0 - 55 unit/L [facility] Alk Phos 64 40 - 130 unit/L [facility] Total Bilirubin 0.3 0.2 - 1.3 mg/dL [facility] Bili, Direct 0.1 0.0 - 0.3 mg/dL [facility] Blood Venous Draw / Unknown 01/23/2023 9:59 AM EST 01/23/2023 10:10 AM EST Narrative Resulting Agency Comment Spec In Lab Ananya Payan DO CHEMISTRY ORDERABLES [facility] [place] [address] * (ABNORMAL) Sedimentation rate (01/23/2023 9:59 AM EST) Pathologist [facility] Sed Rate 51(H) 3 - 46 mm/hr [facility] Comment: Effective November 05, 2019 new capillary photometric technology has resulted in a change in reference ranges. It is recommended that each ESR result be reviewed with its own age appropriate reference range. Blood 01/23/2023 9:59 AM EST 01/23/2023 10:08 AM EST Narrative Resulting Agency Comment Spec In Lab Linda Shaikh DO HEMATOLOGY ORDERAB LES Performing Organization Address [facility]/ZIP Co de Phone Number [facility] [place] [address] * HIV Screen, 4th Generation ([facility] [place] [place]/CGP/APD/NLH) (01/23/2023 9:59 AM EST) [facility] HIV-1/2 Ab and Ag Negative Negative [facility] Comment: This 4th Generation HIV test screens for the presence of the HIV-1 p24 antigen as well as antibodies reactive against HIV-1 and HIV-2. A negative screen does not rule out an acute HIV infection. If acute HIV infection is suspected, testing should be repeated in 2 - 3 weeks or HIV nucleic acid testing performed. HIV Comment Low Risk of HIV Infection [facility] Blood 01/23/2023 9:59 AM EST 01/23/2023 10:08 AM EST Narrative Resulting Agency Comment Spec In Lab Linda Shaikh DO IMMUNOLOGY ORDERAB LES Performing Organization Address City/[facility]/ZIP Co de Phone Number [facility] [place] [address] * Hepatitis C Antibody (01/23/2023 9:59 AM EST) Pathologist [facility] Hepatitis C Ab Negative Negative [facility] Blood 01/23/2023 9:59 AM EST 01/23/2023 10:08 AM EST Narrative Resulting Agency Comment Spec In Lab Linda Shaikh DO IMMUNOLOGY ORDERAB LES Performing Organization Address [facility] Co de Phone Number [facility] [place] [address] * Hepatitis B Surface Antigen (01/23/2023 9:59 AM EST) HepB Surface Ag Negative Negative [facility] Blood 01/23/2023 9:59 AM EST 01/23/2023 10:08 AM EST Narrative Resulting Agency Comment Spec In Lab Linda Shaikh DO CHEMISTRY ORDERABL ES Performing Organization Address [facility] de Phone Number [facility] [place] [address] * Hepatitis B Surface Antibody (01/23/2023 9:59 AM EST) HepB Surface Ab Quant <3.5 IU/L [facility] Comment: HepB Surface Ab Quant: Unvaccinated: < 8.5 IU/L Vaccinated: >= 11.5 IU/L HepB Surface Ab Negative [facility] Comment: Expected Results: Vaccinated: Positive Unvaccinated: Negative Patient is presumed to be not vaccinated or immune to HBV infection. Blood 01/23/2023 9:59 AM EST 01/23/2023 10:08 AM EST Narrative Resulting Agency Comment Spec In Lab Linda Shaikh DO IMMUNOLOGY ORDERAB LES Performing Organization Address [facility] Co de Phone Number [facility] [place] [address] * Hepatitis B Core Antibody, Total (01/23/2023 9:59 AM EST) Hep B Core Ab Negative Negative [facility] Blood 01/23/2023 9:59 AM EST 01/23/2023 10:08 AM EST Narrative Resulting Agency Comment Spec In Lab Linda Shaikh DO CHEMISTRY ORDERABL ES Performing Organization Address City/[facility]/ZIP Co de Phone Number [facility] [place] [address] * (ABNORMAL) CRP, acute inflammation (01/23/2023 9:59 AM EST) CRP 5.2(H) <=4.9 mg/L [facility] Blood 01/23/2023 9:59 AM EST 01/23/2023 10:08 AM EST Narrative Resulting Agency Comment Spec In Lab Linda Shaikh DO CHEMISTRY ORDERABL ES Performing Organization Address City/[facility]/ZIP Co de Phone Number [facility] [place] [address] documented in this encounter 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
--- OUTSIDE RECORDS SUMMARY | 2024-06-19 02:36 | XMS_ITS | Encounter Summary ---
Author Organization [facility] [place] [address] Care Team Providers Care Compressor Operator Adjuster Name Role Phone Yesy Nagy APRN Primary Care Provider Reason for Referral * Diagnostic Test (Routine) - Closed Specialty Diagnoses / Procedures Referred By Contac t Referred To Contact Radiology Diagnoses Gait instability Tremor Procedures [place] Brain Imaging for Parkinsons Disease Srikanth Morris MD [facility] [place] [address] [place] [address] Referral ID Status Reason Start Date Expiration Date V isits Requested Visits Authorized [id number] Closed Specialty Service Requested 01/23/2023 07/23/2024 1 1 Reason for Visit * Diagnostic Test (Routine) - Closed Specialty Diagnoses / Procedures Referred By Contac t Referred To Contact Radiology Diagnoses Gait instability Tremor Procedures NM Brain Imaging for Parkinsons Disease Srikanth Morris MD [facility] [place] [address] [place] [address] Referral ID Status Reason Start Date Expiration Date V isits Requested Visits Authorized [id number] Closed Specialty Service Requested 01/23/2023 07/23/2024 1 1 Encounter Details Date Type Department Care Team (Latest Contact Info) Description 02/23/2023 8:23 AM EDT Hospital Encounter [place] [address] Srikanth Morris [place] [address] Gait instability; Tremor Discharge Disposition: Home Social [...] (FISH OIL ORAL) Take by mouth. 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 Is hoping [...] who have questions please contact the health wild animal caretaker that requested your imaging first. ? Electronically signed by: Seth Guillen MD, [facility] ([phone]), at 02/23/2023 4:35 PM Narrative 02/23/2023 4:35 [...] Note Seth Guillen MD - 02/23/2023 EXAMINATION: [place] BRAIN IMAGING FOR PARKINSONS DISEASE CLINICAL HISTORY: [...] patients who have questions please contactthe health wild animal caretaker that requested your imaging first. Electronically signed by: [facility]([phone]), at 02/23/2023 4:35 PM Srikanth Morris MD [facility] [place] ORDERABLES documented in this encounter Visit Diagnoses Diagnosis Gait instability Abnormality of gait Tremor Abnormal involuntary movements documented in this encounter Administered Medications Inactive Administered Medications - up to 3 most recent administrations Medication Order MAR Action Action Date Dose Rate Site strong iodine (Lugols) 5% oral liquid 0.8 mL 0.8 mL, Oral, ONCE, 1 dose, On Sun02/23/23 at 0900, Radiology Contrast, Routine Given 02/23/2023 8:35 AM EDT 0.8 mLs documented in this encounter Care Teams Compressor Operator Adjuster Relationship Specialty Start Date End Date Yesy Nagy APRN [address] [place] [address] PCP - General Geriatric Medicine 08/02/22 documented as of this encounter
--- OUTSIDE RECORDS SUMMARY | 2024-06-19 02:36 | XMS_ITS | Encounter Summary ---
Author Organization [facility] Address [facility] [facility] [address] Care Team Providers Care Fixed Capital Clerk Name Role Phone Yesy Nagy APRN Primary Care Provider [phone] Reason for Visit * Reason Comments Specialty Pharmacy Review Tocilizumab (A ctemra) 162 mg/0.9 mL Pen Injector Encounter Details Date Type Department Care Team (Late st Contact Info) Description 02/26/2023 Specialty [place] [address] Yuliya Booker, [facility] Social History Tobacco Use Types Packs/Day [...] encounter Progress Notes * Yuliya Booker - 02/26/2023 11:59 PM EDT The [facility] has completed a benefits investigation for Judson Patel Jr. to review their eligibility to fill at [facility]. Per patient's medication list they are prescribed Tocilizumab (Actemra) and the medication is currently filled at the [facility]. documented in this encounter Plan of Treatment Not on file documented as of this encounter Goals Goal Patient Goal Type Associated Problems Recent Progress Patient-Stated? Author DH Self-Management Patient Facing Action Plan No Danica Taylor, [facility] Note: Judson Patel Jr. Is hoping to decrease his prednisone dosage and keep pain levels at a minimum. He is hoping that Actemra will be able to keep him walking since before prednisone he had a hard time standing up and walking around. documented as of this encounter Visit Diagnoses Not on filedocumented in this encounter Care Teams Fixed Capital Clerk Relationship Specialty Start Date End Date Yesy Nagy APRN [address] [place] [address] PCP - General Geriatric Medicine 08/02/22 documented as of this encounter
--- OUTSIDE RECORDS SUMMARY | 2024-06-19 02:36 | XMS_ITS | Encounter Summary ---
Author Organization [facility] Address [facility] [place] [address] Care Team Providers Care Special Education Para Professional Name Role Phone Yesy Nagy APRN Primary Care Provider [phone] Encounter Details Date Type Department Care Team (Late st Contact Info) Description 03/14/2023 [place] [address] Landy Monson RN Social History [...] Telephone Encounter - Landy Monson RN - 03/14/2023 2:14 PM EDT Sig: Take 6 tablets by mouth daily for 7 days, THEN 5 tablets daily for 7 days, THEN 4 tablets daily for 7 days, THEN 3 tablets daily for 7 days, THEN 2.5 tablets daily for 7 days, THEN 2 tablets daily for 7 days, THEN 2 tablets daily for 14 days. Call back to the patient. The patient is concerned regarding the borderline Cr level from recent testing. He is scheduled to have a US March 29 he believes of the kidney. Patient is asking when he can get off the Prednisone. Currently on a taper as listed above. The patient was questioning to dose as there is some repetition on the medication bottle. Nurse said she would ask the Provider to review/advise regarding the prescription/Sig line. Message sent to Dr Ananya Payan DO to review and advise. documented in this encounter Plan of Treatment Not on file documented as of this encounter Goals Goal Patient Goal Type Associated Problems Recent Progress Patient-Stated? Author DH Self-Management Patient Facing Action Plan No Danica Taylor, [facility] Note: Judson Nagel Jorge Funk Is hoping to decrease his prednisone dosage and keep pain levels at a minimum. He is hoping that Actemra will be able to keep him walking since before prednisone he had a hard time standing up and walking around. documented as of this encounter Visit Diagnoses Not on filedocumented in this encounter Care Teams Special Education Para Professional Relationship Specialty Start Date End Date Yesy Nagy APRN [address] [place] [address] PCP - General Geriatric Medicine 08/02/22 documented as of this encounter
--- OUTSIDE RECORDS SUMMARY | 2024-06-19 02:36 | XMS_ITS | Encounter Summary ---
Author Organization [facility] Address [facility] [place] [address] Care Team Providers Care Dam Attendant Name Role Phone Yesy Nagy APRN Primary Care Provider Encounter Details Date Type Department Care Team (Late st Contact Info) Description 01/22/2023 Telephone [place] [id number] Ananya Payan DO [facility] [place] [address] Social History Tobacco Use Types Packs/Day Years [...] Telephone Encounter - Ananya Payan DO - 01/22/2023 4:07 PM EST Pt labs with slight elevation in CRP 2.2 (outside lab, <3) He had and episode 2 weeks ago -with dark horizontal line in vision, lasted 15 minutes. - no TORRES, joint pain, vision changes, jaw claudication. -no further episodes vision changes. On 8mg prednisone daily - has appointment with [facility] neurology tomorrow. - Will recheck CRP ESR - If still elevated will need to discussed steroid sparing medication option. Previously offered actemra, but pt decline. Could also consider MTX. documented in this encounter Plan of Treatment Not on file documented as of this encounter Goals Goal Patient Goal Type Associated Problems Recent Progress Patient-Stated? Author DH Self-Management Patient Facing Action Plan No Danica Taylor, [facility] Note: Judson Nagel Jorge Cisse. Is hoping to decrease his prednisone dosage and keep pain levels at a minimum. He is hoping that Actemra will be able to keep him walking since before prednisone he had a hard time standing up and walking around. documented as of this encounter Visit Diagnoses Not on filedocumented in this encounter Care Teams Dam Attendant Relationship Specialty Start Date End Date Yesy Nagy APRN [address] [place] [address] PCP - General Geriatric Medicine 08/02/22 documented as of this encounter
--- OUTSIDE RECORDS SUMMARY | 2024-06-19 02:36 | XMS_ITS | Encounter Summary ---
Author Organization [facility] Address [facility] [place] [address] Care Team Providers Care Header Up Name Role Phone Yesy Nagy APRN Primary Care Provider Encounter Details Date Type Department Care Team (Late st Contact Info) Description 01/15/2023 Orders [place] [phone] Ananya Payan, [facility] [address] GCA (giant cell arteritis) Social History Tobacco [...] Lab Routine GCA (giant cell arteritis) Expected: 01/15/2023 (Approximate), Expires: 07/17/2023 documented as of this encounter Goals Goal [...] arteritis documented in this encounter Care Teams Header Up Relationship Specialty Start Date End Date Yesy Nagy APRN [address] [place] [address] PCP - General Geriatric Medicine 08/02/22 documented as of this encounter
--- OUTSIDE RECORDS SUMMARY | 2024-06-19 02:36 | XMS_ITS | Encounter Summary ---
Author Organization [facility] [place] [address] Care Team Providers Care Olive Grower Name Role Phone Yesy Nagy APRN Primary Care Provider Encounter Details Date Type Department Care Team (Latest Contact Info) Description 02/23/2023 Travel Social History Tobacco Use Types Packs/Day [...] Action Plan No Danica Taylor, [facility] Note: Judson Robe Patel Jr. Is hoping to decrease his prednisone dosage and keep pain levels at a minimum. He is hoping that Actemra will be able to keep him walking since before prednisone he had a hard time standing up and walking around. documented as of this encounter Visit Diagnoses Not on filedocumented in this encounter Care Teams Olive Grower Relationship Specialty Start Date End Date Yesy Nagy APRN [address] [place] [address] PCP - General Geriatric Medicine 08/02/22 documented as of this encounter
--- OUTSIDE RECORDS SUMMARY | 2024-06-19 02:36 | XMS_ITS | Encounter Summary ---
Author Organization [facility] Address [facility] [place] [address] Care Team Providers Care Keymodule Assembly Machine Tender Name Role Phone Yesy Nagy APRN Primary Care Provider [phone] Encounter Details Date Type Department Care Team (Latest Contact Info) Description 12/04/2022 11:45 AM EST TH Visit (TeleHealth) [place] [address] Ananya Payan DO [facility] [place] [address] GCA (giant cell arteritis) Social History Tobacco [...] Progress Notes * Ananya Payan DO - 12/04/2022 11:45 AM EST Rheumatology Outpatient telephone Follow Up Note PCP: MALACHI Vinson Jr. [...] by Ananya Payan DO or the rooming business support assistant as documented in their note. This [...] or mental health care. Rheum History: #GCA ?? -Symptoms began in [...] ESR 33, CRP 0.14. - Continue prednisone taper,??currently on 12.5 mg x 2 weeks then 10 mg x 2 weeks. ??Then taper down by 1 mg/month. Interval History: Patient reports overall he feels this health has declined. He notes he has continued left wrist pain after mechanical fall leading to a fracture. He is following with Ortho at [facility] for this. He reports pain and swelling in the wrist. Using a soft cast. Reports fatigue, nonrestorative sleep, waking up multiple times at night. -Reports he continues to have gait instability, he has an appointment with neurology on Sunday. -No headaches, morning stiffness, jaw claudication, vision changes, shoulder or hip pain. -Currently is on 12.5 mg of prednisone. -Reports she is continue to sustain from alcohol ROS (positives in bold): Gen: no fevers, no chills, no night sweats Pulm: no SOB CV: no CP Abd: no abd pain, no nausea, no vomiting, no diarrhea MSK: see HPI Meds and Allergies: Reviewed in e[facility] Labs/Studies: Reviewed. Assessment/Plan: 72-year-old male with past medical history of hypertension, BPH, peripheral neuropathy prior alcohol use presenting today for follow-up of GCA With regards to his symptoms of GCA, he remains asymptomatic. No headaches, jaw claudication, morning stiffness. He continues to report intermittent disequilibrium, he has an appointment with neurology on Sunday. I encouraged him to keep keep this appointment. We will obtain inflammatory markers CRP ESR. He will do this at [facility] on the when he has a primary care appointment. We will plan to continue to taper prednisone by 1 mg/month if inflammatory markers are low Plan -Continue 12.5 mg prednisone, if inflammatory markers are low we will continue to taper to 10 mg prednisone and taper by 1 mg/month -Continue calcium vitamin D supplement -Continue aspirin -Follow-up with neurology -Follow-up with PCP Patient was discussed with Dr. Stephen Payan DO Rheumatology Fellow Pager: [phone] * Stephen Payan MD - 12/04/2022 11:45 AM EST Rheumatology Staff Note I have had the pleasure of interviewing and examining the patient independently. I find the assessment and plan of the fellow to be accurate and correct and endorse it Stephen Payan documented in this encounter Plan of Treatment Scheduled Orders Name Type Priority Associated Diagnoses Orde r Schedule Sedimentation rate Lab Routine GCA (giant cell arteritis) Expected: 12/06/2022 (Approximate), Expires: 06/07/2023 documented as of this encounter Goals Goal Patient Goal Type Associated Problems Recent Progress Patient-Stated? Author DH Self-Management Patient Facing Action Plan No Danica Taylor, [facility] Note: Judson Patel Jr. Is hoping to [...] arteritis documented in this encounter Care Teams Keymodule Assembly Machine Tender Relationship Specialty Start Date End Date Yesy Nagy APRN [address] [place] [address] PCP - General Geriatric Medicine 08/02/22 documented as of this encounter
--- OUTSIDE RECORDS SUMMARY | 2024-06-19 02:36 | XMS_ITS | Encounter Summary ---
Author Organization [facility] Address [facility] [place] [address] Care Team Providers Care Border Police Name Role Phone Yesy Nagy APRN Primary Care Provider Encounter Details Date Type Department Care Team (Latest Contact Info) Description 04/12/2023 1:00 PM EDT TH Visit (TeleHealth) [place] [phone] Ananya Payan, [facility] [place] [address] GCA (giant cell arteritis); Medication monitoring encounter [...] encounter Progress Notes * Ananya Payan, - 04/12/2023 1:00 PM EDT Rheumatology Outpatient telephone Follow Up Note PCP: MALACHI Vinson Jr. is a 72 y.o. male who we are seeing for the continuing management of GCA. Rheum History: #GCA ?? -Symptoms began in [...] started actemra, increase prednisone to 10mg.?? -02/06: intermittent TORRES. Televist, prednisone to 30 mg x 1 week then 25 mg x 1 week then 20 mg x 1 week then 15 mg x 1 week then 12.5 mg x 1 week, then 10 mg x 1 week -02/07: ESR: 11 04/09/23: ESR 5, CRP 0.05, CMP WNL ?? #vison changes- yellow discoloration - advised to schedule appointment with eye clinc. - resolved. Interval History: Pt does not have phone or computer to due video visit. - Pt reports he is doing okay. - He is Currently on 6 mg of prednisone and weekly Tolcilizumab - Reports occasional TORRES, frontal, no lasting more than 30 minutes. - No vision changes, jaw claudication, joint pain or swelling - Reports fatigue - Reports waking up at night to urinate. ROS (positives in bold): Gen: no fevers, [...] sed rate of 51, CRP of 5.2. Also developed intermittent recurrent headaches.?? He was started on Actemra and increase prednisone to 30 mg and tapered per giacta 26 week schedule. Today on telephone follow-up he is doing well. He does report occasional short intermittent TORRES (<30min), but I do not think these are related to GCA. Most recent inflammatory markers from 04/09/2023 were normal. Reports fatigue, nocturia. Advised daily walks, avoiding drinking before bed. Has appointment with PCP in a few weeks. Plan - Continue Prednisone taper 6 mg X 2 week, then 5mg X 2 weeks, then 4 mg X 2 weeks, then 3 mg X 2 weeks, 2 mg X 2 weeks, then 1 mg X 2 weeks. - Continue Tolcilizumab weekly - Continue Calcium and Vit D supplement - Follow up in person in 2 months. Patient was discussed with Dr. Keturah Payan DO Rheumatology Fellow Pager: [phone] * Stephen Payan MD - 04/12/2023 1:00 PM EDT Rheumatology Staff Note I find the assessment and plan of the fellow to be accurate and correct and endorse it Stephen Payan documented in this encounter Plan of Treatment Not on file documented as of this encounter Goals Goal Patient Goal Type Associated Problems Recent Progress Patient-Stated? Author DH Self-Management Patient Facing Action Plan No Danica Taylor, [facility] Note: Judson Nagel Jorge Funk Is [...] monitoring documented in this encounter Care Teams Border Police Relationship Specialty Start Date End Date Yesy Nagy APRN [address] [place] [address] PCP - General Geriatric Medicine 08/02/22 documented as of this encounter
--- OUTSIDE RECORDS SUMMARY | 2024-06-19 02:36 | XMS_ITS | Encounter Summary ---
Author Organization [place] [address] Care Team Providers Care Pre Coder Name Role Phone Yesy Nagy APRN Primary Care Provider Encounter Details Date Type Department Care Team (Latest Contact Info) Description 02/26/2023 4:00 PM EDT TH Visit (TeleHealth) [place] [phone] Ananya Payan, [facility] [place] [address] GCA (giant cell arteritis); Immunosuppressed status; Medication [...] encounter Progress Notes * Ananya Payan, - 02/26/2023 4:00 PM EDT Rheumatology Outpatient Telephone Follow Up Note PCP: MALACHI Vinson Jr. is a 72 y.o. male who we are seeing for the continuing management of GCA. At the outset of this visit, I made them aware that this telephone visit may be billed similar to aclinic visit to him or his insurance company. Mr. Patel were in agreement to continue this visit. Total telephone visit time: 330-350 for a total 20 minutes. Rheum History: [...] mg x 1 week -02/07: ESR: 11 #vison changes- yellow discoloration - advised to schedule appointment with eye clinc. - resolved. Interval History: Patient does not have video capabilities on his phone or computer. Prefers telephone call -Patient reports he is doing well since increasing prednisone to 30 mg at last visit he has had improvement in the headaches. He did have an MRI done on Sunday and notes after that procedure he did have a headache which has since resolved. Denies jaw claudication, tongue pain, vision changes. He also noted yellow discoloration noted in his vision last visit is now resolved. -No inflammatory joint pain, morning stiffness joint swelling. -No falls. -Notes continued gait and balance, stable -Continuing on Actemra no injection site reactions ROS (positives in bold): Gen: no fevers, [...] Today on telephone follow-up he is doing well without recurrence of headaches, joint pain, jaw claudication. We will recheck his inflammatory markers, LFTs, lipid profile while on Actemra. -Ideally would obtain large vessel imaging to assess for any vascular abnormalities. Patient prefers to hold off on further imaging due to difficulty with obtaining rides. Plan -Labs: CBC, CMP, lipid profile, ESR, CRP- will send to [facility] -Continue Actemra weekly -Continue prednisone taper: Prednisone 25 mg X 1 week 20 mg x 1 week then 15 mg x 1 week then 12.5 mg x 1 week, then 10 mg x 1 week, then 9 mg X 1 week, then 8 mg X 1 week, 7mg X 1 week, then 6 mg X 2 week, then 5mg X 2 weeks, then 4 mg X 2 weeks, then 3 mg X 2 weeks, 2 mg X 2 weeks, then 1 mg X 2 weeks. - Follow up in 2 months Patient was discussed with Dr. Joana Payan DO Rheumatology Fellow Pager: [phone] * Junior Bernard MD - 02/26/2023 4:00 PM EDT The patient's history was reviewed with Dr. Payan. History of present illness and diagnosis discussed. Chief complaint and review of systems reviewed. I agree with the summary, findings, diagnostic and therapeutic plans. Junior Bernard [place], [id number] documented in this encounter Plan of Treatment Not on file documented as of this encounter Goals Goal Patient Goal Type Associated Problems Recent Progress Patient-Stated? Author BRYAN Self-Management Patient Facing Action Plan No Danica Taylor, [facility] Note: Judson Patel Jr. Is hoping to decrease his prednisone dosage and keep pain levels at a minimum. He is hoping that Actemra will be able to keep him walking since before prednisone he had a hard time standing up and walking around. documented as of this encounter Results * Lipid Panel (Reflex Direct LDL) (05/31/2023 10:18 AM EDT) Chol, Total 239 mg/dL [facility] Comment: Lower Risk: <200 mg/dL Average Risk: 200-239 mg/dL Higher Risk: >am=249 mg/dL Triglycerides 191 mg/dL [facility] Comment: Average Risk/Lower Risk: <150 mg/dL Borderline High Risk: 150-199 mg/dL High Risk: 200-499 mg/dL Very High Risk: >li=424 mg/dL HDL 51 mg/dL [facility] Comment: Males: ?? Higher Risk: <40 mg/dL Females: ?? Higher Risk: <50 mg/dL LDL Cholesterol 150 mg/dL [facility] Comment: Lowest Risk: <100 mg/dL Lower Risk: 100-129 mg/dL Borderline High Risk: 130-159 mg/dL High Risk: 160-189 mg/dL Very High Risk: >wp=112 mg/dL Chol/HDL Ratio 4.7 ratio [facility] Lipid Interpretation See Note [facility] Comment: Lipid management should be guided by a patient? s ASCVD risk, goals and preferences. ACC/AHA Guidelines recommend high intensity statin if clinical ASCVD or LDL greater than or equal to 190 mg/dL. http://tinyurl.com/JBI-LTF-Dovtkxuqj Adults aged 40-75 with LDL 70-189 mg/dL should have their 10 year ASCVD risk estimated with the ACC/AHA ASCVD risk fabric and accessories estimator http://tools.acc.org/NRQZO-Degc-Lzepqlbqp/ Statin should be discussed if risk greater [...] Lab Junior Bernard MD [place] [address] documented in this encounter Visit Diagnoses Diagnosis GCA (giant cell arteritis) Giant cell arteritis Immunosuppressed status Unspecified disorder of immune mechanism Medication monitoring encounter Encounter for therapeutic drug monitoring Hyperlipidemia, unspecified hyperlipidemia type documented in this encounter Care Teams Pre Coder Relationship Specialty Start Date End Date Yesy Nagy APRN [address] [place] [address] PCP - General Geriatric Medicine 08/02/22 documented as of this encounter
--- OUTSIDE RECORDS SUMMARY | 2024-06-19 02:36 | XMS_ITS | Encounter Summary ---
Author Organization [facility] Address [facility] [place] [address] Care Team Providers Care Linux System Administrator Name Role Phone Yesy Nagy APRN Primary Care Provider Encounter Details Date Type Department Care Team (Late st Contact Info) Description 01/15/2023 Telephone [place] [phone] Dayna Paez, RN Social History [...] Telephone Encounter - Dayna Paez RN - 01/15/2023 3:12 PM EST Judson calls to talk with Dr. Payan. RTC to Judson an he reports this weekend he had an episode where he was unable to get OOB and has also been experiencing severe Dry Mouth and water does not quench his thirst. Reports he also has SOB at rest. Judson states he was able to get OOB as the day went on. States he was extremely weak. Reports Dry mouth and SOB at rest continue. Thought a few times like he may need to call an ambulance. I was able to converse with Judson on the phone and he did not sound SOB, and was able to converse in sentences with me. Judson states he does spend a fair amount of time in bed. I advised Judson if he experiences anymore SOB at rest, he needs to call an ambulance to be assessedlocally. Advised of risks related to being inactive, PE/DVT. Judson verbalizes understanding. I also advised Judson that I will let Dr. Payan know of his condition and ask for recommendations. Ananya Payan, DO sent to Dayna Paez RN Caller: Unspecified (Today, 11:48 AM) Can you let him know that I will have labs sent to [facility] to check his inflammatory marker and advisehim to call his PCP to discuss the SOB ?? Previous Messages I spoke with Judson and advised that he will have labs done LEMUEL, Judson will call for an appointment. I advised to talk with PCP in regards to SOB and Judson states they just push him off and tell him PCP is busy. I advised to check with PCP first and if he is not able to see or speak with PCP or nurse in regards to SOB then he has no other options except to go to local ER for evaluation as we spoke of earliertoday. documented in this encounter Plan of Treatment Not on file documented as of this encounter Goals Goal Patient Goal Type Associated Problems Recent Progress Patient-Stated? Author DH Self-Management Patient Facing Action Plan No Danica Taylor, [facility] Note: Judson Patel Jr. Is hoping to decrease his prednisone dosage and keep pain levels at a minimum. He is hoping that Actemra will be able to keep him walking since before prednisone he had a hard time standing up and walking around. documented as of this encounter Visit Diagnoses Not on filedocumented in this encounter Care Teams Linux System Administrator Relationship Specialty Start Date End Date Yesy Nagy APRN [address] [place], [place] [address] [place] [address] PCP - General Geriatric Medicine 08/02/22 documented as of this encounter
--- OUTSIDE RECORDS SUMMARY | 2024-06-19 02:37 | XMS_ITS | Encounter Summary ---
Author Organization [facility] Address [facility] [place] [address] Care Team Providers Care Fabricating Machine Operator Name Role Phone Yesy Nagy APRN Primary Care Provider [phone] Encounter Details Date Type Department Care Team (Late st Contact Info) Description 08/27/2022 Telephone [place] [phone] Pravin Sethi MD [facility] [place] [address] Social History Tobacco Use Types Packs/Day Years [...] encounter Miscellaneous Notes * Telephone Encounter - Pravin Sethi MD - 08/27/2022 7:18 AM EDT Received page from patient and returned call. Of note, patient has called earlier this week with similar issues; see telephone notes from Dr. Dee on 08/24/[address] Reynaldo Payan on 08/25/22. I actually discussed his case with Dr. Reynaldo Payan on 08/25/22 and was at that time concerned for a posterior intracranial pathology (including CVA) rather than uncontrolled GCA given that his symptoms worsened/persisted even on prednisone 60 mg daily. This morning, states that he can't walk; specifically, gait/imbalance is so bad that his is afraid to go down his stairs without falling. This has obviously worsened over the past few days and evenovernight. Also mentioned that he had severe diarrhea overnight. Patient was instructed to hang up and call 911 to request transport to nearest ER. States he would be able to do this and was in agreement with this plan. Pravin Sethi MD Rheumatology Fellow Pager: [phone] documented in this encounter Plan of Treatment Not on file documented as of this encounter Visit Diagnoses Not on filedocumented in this encounter Care Teams Fabricating Machine Operator Relationship Specialty Start Date End Date Yesy Nagy APRN [address] [place] [address] PCP - General Geriatric Medicine 08/02/22 documented as of this encounter
--- OUTSIDE RECORDS SUMMARY | 2024-06-19 02:37 | XMS_ITS | Encounter Summary ---
Author Organization [facility] [place] [address] Care Team Providers Care Pulverizing And Sifting Operator Name Role Phone Yesy Nagy APRN Primary Care Provider Encounter Details Date Type Department Care Team (Late st Contact Info) Description 09/01/2022 Telephone [place] [phone] Ananya Payan, [facility] [place] [address] Social History Tobacco Use Types Packs/Day Years [...] Telephone Encounter - Ananya Payan DO - 09/01/2022 8:35 AM EDT Returned patients call - Patient wanted to report that he is feeling 100% better. He reports that over the weekend he had multiple large formed BM. Noted it make have been dark, He also reported generalized Weakness and staid he was unable to get out of bed. He reports that over the weekend he has multiple BMS. No lightheadedness and dizziness. No no report constipation prior. -denies abd pain, nausea, vomiting - He was instructed to go to the ED by the aircraft detail draftsperson fellow, he called 911, but by the time they came, he was feeling better. - over the last few days, he is now feeling much improved. best he has felt in months. no furtherdark BMs. Denies TORRES vision changes, dizziness, weakness, joint pain or swelling. Concerned he may have had a GI bleed- ddx- diverticular, peptic ulcer. He has risk factors with steroids, EtOH use. - Advised to call PCP office to setting up an appointment for follow up within 1 week. -Advised to go to ED if there is any recurrence of symptoms- black stool, continued large BMs, lightheadedness, dizziness SOB, FUNG. -Pt is continuing to drink 2-3 beers a night, advised to cut back. Will see in follow up in 2 weeks, pt will have labs before appointment. Ananya Payan DO Rheumatology Fellow Pager: [phone] documented in this encounter Plan of Treatment Not on file documented as of this encounter Visit Diagnoses Not on filedocumented in this encounter Care Teams Pulverizing And Sifting Operator Relationship Specialty Start Date End Date Yesy Nagy APRN [address] [place] [address] PCP - General Geriatric Medicine 08/02/22 documented as of this encounter
--- OUTSIDE RECORDS SUMMARY | 2024-06-19 02:37 | XMS_ITS | Encounter Summary ---
Author Organization [facility] Address [facility] [place] [address] Care Team Providers Care Rn Admissions Name Role Phone Yesy Nagy APRN Primary Care Provider Encounter Details Date Type Department Care Team (Late st Contact Info) Description 08/24/2022 [place] [phone] Thony Dee MD [facility] [place] [address] Social History Tobacco Use Types Packs/Day Years [...] Telephone Encounter - Thony Dee MD - 08/24/2022 7:52 PM EDT Responded to a page from the patient. He is being followed for PMR, had high inflammatory markers and his prednisone was increased to 60mg, repeat labs showed a decrease in his inflammatory markers. He calls stating that he had an episode of gait imbalance today that lasted for ~10minutes while hewas outside. Denied LOC, vision changes, headache, other symptoms. He has had these issues for a long time and is being planned for a neurology referral by Dr Payan and potentially imaging. He continues on the prednisone 60mg. I conveyed this information to Dr. Payan who will be in touch with the patient tomorrow. Thony Dee MD Rheumatology fellow Pager: [phone] documented in this encounter Plan of Treatment Not on file documented as of this encounter Visit Diagnoses Not on filedocumented in this encounter Care Teams Rn Admissions Relationship Specialty Start Date End Date Yesy Nagy APRN [address] [place] [address] PCP - General Geriatric Medicine 08/02/22 documented as of this encounter
--- OUTSIDE RECORDS SUMMARY | 2024-06-19 02:37 | XMS_ITS | Encounter Summary ---
Author Organization [facility] Address [facility] [place] [address] Care Team Providers Care Contract Manager Name Role Phone Ozzie Davis Primary Care Provider [phone]- [phone] Reason for Visit * Consultation (Routine) - Closed Specialty Diagnoses / Procedures Referred By Contaugustin t Referred To Contact Neurology Diagnoses shooting pain down the bilat arms and down to LLE, loss of balance and dizzy spells. Ozzie Davis PA [address] [place] [address] [facility] [address] [place] [address] Referral ID Status Reason Start Date Expiration Date V isits Requested Visits Authorized [id number] Closed Consult, Test & Treat Connection [facility] 04/13/2016 04/13/2017 1 1 Encounter Details Date Type Department Care Team (Late st Contact Info) Description 06/09/2016 10:30 AM EDT Procedure [place] [address] Sharlene Moore MD [facility] [place] [address] Neuropathy Social History Tobacco Use Types Packs/Day Years [...] Sign Reading Time Taken Comments Blood Pressure 159/72 06/09/2016 10:06 AM EDT Pulse 62 06/09/2016 10:06 AM EDT Temperature - - Respiratory Rate - - Oxygen Saturation - - Inhaled Oxygen Concentration - - Weight 70.2 kg (154 lb 12.8 oz) 016 10:06 AM EDT Height 172.7 cm (5' 8) 06/09/2016 10:0 6 AM EDT reported Body Mass Index 23.54 06/09/2016 10:06 AM EDT documented in this encounter Progress Notes * Karan Aguilar MD - 06/09/2016 10:30 AM EDT Neurology Consult Note Patient name:Judson Patel Jr. Date of :1950 CC: Right sided numbness We have been asked to see Judson Patel Jr. by Ozzie Davis HPI: Judson Patel Jr. is a 65 y.o. M w/hx of HTN, HLD, GERD, alcohol abuse presenting to Neurology clinic for evaluation. He has multiple complaints, which seem to occur in a longitudinal timeframe asbelow. Approximately 5 years ago he had developed some sensation of tingling that would start in the upperback and go down his spine. These symptoms were mild, disappeared within 6-8 months. In the summer of 2014 he developed pain in his hands. The pain would appear in the bones of his hands and ascend up the arms. Deep and achy in quality, and fairly severe. Would usually happen afterbreakfast, and worsen with activity. Pain would usually recede by late afternoon and evening. With severe pain would have some weakness (seems pain limited) and incoordination as well in upper extremities. Symptoms resolved by the end of summer. At the end of fall developed flash headaches. Pain would usually last for 3-4 seconds, occur in different parts of the head, severe (9/10) and stabbing in quality. Occurred at random times throughout the days, multiple times per day. No known triggers. Would experience nausea with severe episodes. No visual auras, though rarely after episodes would see bright shadows - rodney to looking at a light, and looking elsewhere - this would last seconds as well. These symptoms resolved by November. In the beginning of spring (after the flash headaches resolved) on a particular day he all of thesudden developed severe pain int he left leg. The pain was excruciating, and lasted for almost 3 days. It started in the foot - described as deep, achy, bony pain. The pain ascended to the thigh on the left sided, and was also associated with allodynia over the leg and thigh. He took 4 tablets of 325mg Aspirin, which alleviated the pain somewhat. He also became totally weak and frozen, nauseous, and diaphoretic seemingly from the intensity of the pain. No pre-syncopal symptoms; no tunnel vision, lightheadedness, chest pain, chest pressure. He returned to baseline after 3 days, when the painresolved. His current and new set of symptoms began about 2 months ago. He is describing numbness starting onthe right side of the shoulder, down the chest (and to midline, but not crossing to the left), downthe abdomen and all the way down to the foot on the right side. Symptoms are intermittent and usually last 10-20 minutes. Occur multiple times per week, though haven't occurred over the last 7 days. When severe he feels he cant move the right leg well - as though he is submerged in water to his chest. No known triggers. Onset is fairly quick (within a minute) as is resolution of symptoms. Denies any perineal numbness. No incontinence (stool or urine). No falls. With some of the symptomsfrom above he develops nausea, dizziness and sometimes SOB - though he denies that he is anxious orhaving a panic attack. No recent febrile illness. No rash. No joint or muscle aches. No tick bites.He tells me he had a seizure when he was 12 years old after dropping a stone on his foot - he did not lose consciousness, did not bite his tongue, was not incontinent. Was seen in the ED at the time, diagnosis of seizure was not made. He suffered from migraines as a child. Work-up per PCP: Essentially normal MRI/MRA RF neg ESR nl CRP nl TSH nl ?elevated ITA He lives in [place], [place]. 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 Over the last year he has been having many issues with the tenant who is apparently not paying rent, bills, and has garbage all over the place. Past Medical History: HTN HLD GERD Alcohol abuse Hepatitis B (1972) Appendectomy Tonsillectomy Measles (childhood) Mump (childhood) Chicken Pox (childhood) Medications: Dose Details aspirin 325 mg Tab Take 325 mg by mouth daily. 325 mg Refills: 0 atenolol 50 mg Tab Commonly known as: TENORMIN Take 50 mg by mouth daily. 50 mg Refills: 0 clonazePAM 0.5 mg Tab Commonly known as: KlonoPIN Take 0.5 mg by mouth as needed. 0.5 mg Refills: 0 lisinopril 10 mg Tab Commonly known as: PRINIVIL;ZESTRIL Take 10 mg by mouth daily. 10 mg Refills: 0 tamsulosin 0.4 mg Cp24 Commonly known as: FLOMAX Take 0.4 mg by mouth daily. 0.4 mg Refills: 0 traMADol 50 mg Tab Commonly known as: ULTRAM Take 50 mg by mouth every 6 hours as needed for Pain. 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 Has 3 children - healthy No recent travel Water from [employer] (last tested 2006) Smoked 1 ppd for 5-6 years in his 20s Usually 6 pack of beer daily (same during weekends) No illicit drug use Not STD tested Review of systems: See HPI Physical Exam: Vitals: Temp: -- Heart Rate: [62] Resp: -- BP: (159)/(72) SpO2: -- Constitutional: Patient of apparent stated age, well nourished, well developed, no acute distress HEENT: Anicteric sclerae, no injection, no OP exudates Neck: No meningismus CV: RRR, S1, S2, no murmur Resp: CTAB Abd: Soft, nontender, nondistended Ext: WWP, no edema. Some clubbing in the digits. Neuro: MS: Alert, oriented, clear language, no aphasia CN: PERRL, EOMI, visual quintana full, trigeminal sensation intact, no facial asymmetry, hearing intact to whisper, palate elevates symmetrically, tongue protrudes midline, SCM and trap strength intact. No dysarthria. Motor: Normal bulk and tone. No myoclonus. Mild bilateral tremor with hands outstretched. Strength 4+/5 in extremities with some giveaway. Sensation: Decreased sensation to vibration across metatarsals to the ankles Reflexes: Toes mute, 1+ ankles, 2+ patella and biceps Coordination: FTN and TYRON intact and symmetric with mild intention tremor bilaterally Gait: Stable, steady, narrow based, negative romberg Procedures: Nerve Conduction Studies: Evidence of sensory and motor peripheral neuropathy Assessment/Recommendations: Judson Patel Jr. is a 65 y.o. M w/hx of HTN, HLD, GERD, alcohol abuse presenting to Neurology clinic for evaluation. He has multiple complaints as above, and I am not sure there is a single diagnosis that will explain all of the symptoms. On exam he does have some evidence of peripheral neuropathy, also shown on nerve conduction studies. Will start w/u as below - however it is possible symptoms are related to somatization from stress. - SPEP, Lyme, B12, Syphilis Ag, Thiamine, B6, B9, BEBO, MARIETTA, ITA - If symptoms persist consider MS work-up (total spine MRI, Brain MRI w/contrast and LP) - f/u in 6 months KARAN AGUILAR MD PGY 4 Neurology Pager #[phone] I have seen the patient and reviewed the resident's above history and I agree with the details as written. The assessment and plan were formulated in discussion with me and I agree with them as documented. I assisted with the EMG. Sharlene Moore MD documented in this encounter Miscellaneous Notes * Addendum Note - Sharlene Moore MD - 06/12/2016 9:18 AM EDTAddended by: SHARLENE MOORE on: 06/12/2016 09:18 AM Modules accepted: Level of Service documented in this encounter Plan of Treatment Not on file documented as of this encounter Procedures Procedure Name Priority Date/Time Associated Diagnosis Comments LYME IGG & IGM ANTIBODY Routine 06/09/2016 12:38 PM EDT Neuropathy EXTRACTABLE NUCLEAR ANTIGEN (BEBO) AB Routine 06/09/2016 12:38 PM EDT Neuropathy VITAMIN B1, WHOLE BLOOD Routine 06/09/2016 12:38 PM EDT Neuropathy SYPHILIS ANTIBODY SCREEN WITH REFLEX Routine 06/09/2016 12:38 PM EDT Neuropathy HIV SCREEN, 4TH GENERATION ([facility]/CGP/APD/NLH) Routine 06/09/2016 12:38 PM EDT Neuropathy ANGIOTENSIN CONVERTING ENZYME Routine 06/09/2016 12:38 PM EDT Neuropathy ITA ANTIBODY SCREEN Routine 06/09/2016 1 2:38 PM EDT Neuropathy VITAMIN B6 Routine 06/09/2016 12:38 PM EDT Neuropathy PROTEIN ELECTROPHORESIS, SERUM Routine 06/09/2016 12:38 PM EDT Neuropathy FOLATE, SERUM Routine 06/09/2016 12:38 PM EDT Neuropathy documented in this encounter Results * ITA (06/09/2016 12:38 PM EDT) ITA Neg Neg [facility] Blood specimen (specimen) 06/09/2016 12:38 PM EDT 06/09/2016 1:47 PM EDT Narrative Resulting Agency Comment Spec In Lab Sharlene Moore MD IMMUNOLOGY ORDERABLE S [facility] [place] [place] [address] * (ABNORMAL) Extractable Nuclear Antigen (BEBO) Ab (06/09/2016 12:38 PM EDT) BEBO Ab Test ?Result ?Flag ??Unit ??RefValue Ab to Extractable Nuclear Ag Eval,S ??SS-A/Ro Ab, IgG, S ?<0.2 ?U -- REFERENCE VALUE -- <1.0 (Negative) ??SS-B/La Ab, IgG, S ?<0.2 ?U -- REFERENCE VALUE -- <1.0 (Negative) ??Sm Ab, IgG, S ? <0.2 ?U -- REFERENCE VALUE -- <1.0 (Negative) ??GAUGE CHECKER Ab, IgG, S ?<0.2 ?U -- REFERENCE VALUE -- <1.0 (Negative) ??Scl 70 Ab, IgG, S ? 7.6 ?H ?U -- REFERENCE VALUE -- <1.0 (Negative) Interpretation: Positive (>=1.0) ??Megan 1 Ab, IgG, S ? <0.2 ?U -- REFERENCE VALUE -- <1.0 (Negative) Test Performed by: [facility] [place] [address] Rotary Bar Operator: Stephen Caldera II, M.D., Ph.D. (A) [facility] Blood specimen (specimen) 06/09/2016 12:38 PM EDT 06/09/2016 2:47 PM EDT Narrative Resulting Agency Comment Spec In Lab Sharlene Moore MD IMMUNOLOGY ORDERABLE S [facility] [place] [place] [address] * HIV Screen, 4th Generation (06/09/2016 12:38 PM EDT) [facility] HIV-1/2 Ab and Ag Negative Negative [facility] Comment: This 4th Generation HIV test screens for the presence of the HIV-1 p24 antigen as well as antibodies reactive against HIV-1 and HIV-2. A negative screen does not rule out an acute HIV infection. If acute HIV infection is suspected, testing should be repeated in 2 - 3 weeks or HIV nucleic acid testing performed. Blood specimen (specimen) 06/09/2016 12:38 PM EDT 06/09/2016 12:46 PM EDT Narrative Resulting Agency Comment Spec In Lab Sharlene Moore MD IMMUNOLOGY ORDERABLE S Performing Organization Address City/[facility]/ZIP Co de Phone Number [facility] [place] [place] [address] * Angiotensin Converting Enzyme (06/09/2016 12:38 PM EDT) [facility] MARIETTA 11 8 - 53 unit/L [facility] Comment: Test Performed by: [place] [address] Rotary Bar Operator: Stephen Caldera II, M.D., Ph.D. Blood specimen (specimen) 06/09/2016 12:38 PM EDT 06/09/2016 1:30 PM EDT Narrative Resulting Agency Comment Spec In Lab Sharlene Moore MD CHEMISTRY ORDERABLES Performing Organization Address City/[facility]/ZIP Co de Phone Number [facility] [place] [place] [address] * Folate, serum (06/09/2016 12:38 PM EDT) [facility] Folate Lvl 18.4 4.6 - 34.8 ng/mL [facility] Blood specimen (specimen) 06/09/2016 12:38 PM EDT 06/09/2016 12:46 PM EDT Narrative Resulting Agency Comment Spec In Lab Sharlene Moore MD CHEMISTRY ORDERABLES Performing Organization Address [facility]/ZIP Co de Phone Number [facility] [place] [address] * (ABNORMAL) Vitamin B6 (06/09/2016 12:38 PM EDT) Vitamin B6 56(H) 5 - 50 mcg/L [facility] Comment: In this sample, the elevated pyridoxal 5-phosphate is likely related to dietary supplementation. Test Performed by: [employer] [place] [address] Rotary Bar Operator: Mirtha Hall, Ph.D. Blood specimen (specimen) 06/09/2016 12:38 PM EDT 06/09/2016 1:06 PM EDT Narrative Resulting Agency Comment Spec In Lab Sharlene Moore MD CHEMISTRY ORDERABLES Performing Organization Address [facility] Co de Phone Number [facility] [place] [address] * Vitamin B1, whole blood (06/09/2016 12:38 PM EDT) Vit B1 Lvl WB 146 70 - 180 nmol/L [facility] Comment: Test Performed by: [place] [address] Rotary Bar Operator: Mirtha Hall, Ph.D. Blood specimen (specimen) 06/09/2016 12:38 PM EDT 06/09/2016 1:09 PM EDT Narrative Resulting Agency Comment Spec In Lab Sharlene Moore MD CHEMISTRY ORDERABLES Performing Organization Address City/[facility]/ZIP Co de Phone Number [facility] [place] [place] [address] * Syphilis Antibody, IgG (06/09/2016 12:38 PM EDT) Syphilis IgG Neg Neg [facility] Blood specimen (specimen) 06/09/2016 12:38 PM EDT 06/10/2016 10:27 AM EDT Narrative Resulting Agency Comment Spec In Lab Sharlene Moore MD IMMUNOLOGY ORDERABLE S Performing Organization Address City/[facility]/ZIP Co de Phone Number [facility] [place] [place] [address] * Lyme IgG & IgM Antibody (06/09/2016 12:38 PM EDT) Lyme Screening Antibody Neg Neg [facility] Blood specimen (specimen) 06/09/2016 12:38 PM EDT 06/10/2016 10:27 AM EDT Narrative Resulting Agency Comment Spec In Lab Sharlene Moore MD IMMUNOLOGY ORDERABLE S Performing Organization Address City/[facility] Co de Phone Number [facility] [place] [address] * Protein Electrophoresis, serum (06/09/2016 12:38 PM EDT) Total Prot Elec 7.0 6.1 - 8.0 gm/dL [facility] Albumin Elect 4.42 3.60 - 6.00 gm/dL [facility] Alpha1-Globul in 0.19 0.10 - 0.30 gm/dL [facility] Alpha2-Globul in 0.85 0.40 - 0.90 gm/dL [facility] Beta Globulin 0.71 0.50 - 1.00 gm/dL [facility] Gamma Globulin 0.83 0.50 - 1.30 gm/dL [facility] M1 Band None Detected [facility] Blood specimen (specimen) 06/09/2016 12:38 PM EDT 06/09/2016 12:46 PM EDT Narrative Resulting Agency Comment Spec In Lab Sharlene Moore MD CHEMISTRY ORDERABLES [facility] [place] [address] documented in this encounter Visit Diagnoses Diagnosis Neuropathy Mononeuritis of unspecified site documented in this encounter Care Teams Contract Manager Relationship Specialty Start Date End Date Ozzie Davis PA [address] [place] [address] PCP - General General Internal Medicine 04/12/1605/30 documented as of this encounter
--- OUTSIDE RECORDS SUMMARY | 2024-06-19 02:37 | XMS_ITS | Encounter Summary ---
Author Organization [facility] [place] [address] Care Team Providers Care Proof Machine Operator Supervisor Name Role Phone Yesy Nagy MALACHI Primary Care Provider [phone] Reason for Visit * Reason Comments Medication Management Patient Education Encounter Details Date Type Department Care Team (Late st Contact Info) Description 09/14/2022 Specialty [place] [address] Danica Taylor [facility] Social History Tobacco Use Types Packs/Day [...] this encounter Progress Notes * Danica Taylor RP - 09/14/2022 11:05 AM EDT Specialty Pharmacy Consultation; Danica Taylor [facility] Comprehensive Medication Management (CMM) Judson Patel Jr. Diagnosis: PMR/GCA Therapy Start Date: TBD Contact in person or via telephone:in person Mr. Judson Patel Jr. is a 71 y.o. (1950) male who was contacted in [...] Clinical Assessment? Yes Summary and Recommendations: Judson Patel Jr. 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 Patient is aware of the prior authorization [...] was discussed. Clinic follow-up needed: yes - with Dr. Payan in 2 months Allergies and Drug intolerance: No Known Allergies Problem List: Patient Active Problem List Diagnosis Code ??? PMR (polymyalgia rheumatica) M35.3 Special Dietary or Hydration Requirements: no Medication Reconciliation Discrepancies (compared to [facility] med list) -none Medication List: Current Outpatient Medications Medication Sig Note Dispense Refill ??? tocilizumab (Actemra ACTPen) 162 mg/0.9 mL Pen Injector Inject 0.9 mLs subcutaneously every 7 days. 3.6 mL 3 ??? sulfamethoxazole-trimethoprim DS (Bactrim DS) 800-160 mg Tablet 1 tab on Sunday, Sunday and Sunday (Patient not taking: Reported on 09/14/2022) 24 tablet 2 ??? predniSONE (Deltasone) 10 mg Tablet Take 6 tablets by mouth daily for 6 days, THEN 5 tablets daily for 14 days, THEN 4 tablets daily for 14 days, THEN 3 tablets daily for 14 days. 09/14/2022: Takes 50 mg daily pt reported 204 tablet 0 ??? predniSONE (Deltasone) 20 mg Tablet Take 3 tablets by mouth daily. (Patient not taking: Reported on 09/14/2022) 63 tablet 0 ??? amLODIPine (Norvasc) 5 mg Tablet amlodipine 5 mg tablet TAKE ONE TABLET BY MOUTH EVERY DAY ??? predniSONE (Deltasone) 5 mg Tablet 25 mg daily. ??? ZINC ORAL Take by mouth. ??? docosahexaenoic acid/epa (FISH OIL ORAL) Take by mouth. ??? Ascorbic Dauf-Zjwivgelr-Gtg (Emergen-C) 1,000 mg Powder Effervescent in Packet [...] Last 3 Encounters: 09/14/22 149/63 08/08/22 141/69 07/27/16 146/64 Pulse Readings from Last 3 Encounters: [...] 08/08/2022 Lab Results Component Value Date ALT 23 08/08/2022 AST 18 08/08/2022 ALKPHOS 71 08/08/2022 BILITOT 0.5 08/08/2022 ALBUMIN 4.3 08/08/2022 PROT 7.1 08/08/2022 Lab Results Component Value Date WBC 11.1 (H) 08/08/2022 HGB 13.1 (L) 08/08/2022 HCT 36.0 (L) 08/08/2022 MCV 91.8 08/08/2022 PLATELET 273 08/08/2022 Lab Results Component Value Date HA1C 6.0 (H) 06/21/2016 There is no immunization history on file for this patient. Assessment and Recommendations: Patient Counseling Patient informed of specialty services: Yes Patient accepted offer to dormitory counselor: select all, adherence/missed doses, cost of medications/cost [...] to doctor discussed, reminder to refill or roll picker medication discussed, self-monitoring discussed, start medication discussed, stop medication discussed, timing of medications discussed, vaccination discussed, lifestyle modification education, referral needs discussed Time spent: 16-30 min Treatment Outcomes 09/14/2022 1110 Disease progression: Moderate Reviewed in detail with [...] needed: Yes If yes, explain: injection teaching Additional equipment/supplies required: Yes If yes, explain: sharps container Patient satisfied with care/services provided: Yes Specialty Assessment: Physical and Cognitive Assessment: Functional limitations identified: No Cognitive limitations identified: No Concern regarding orientation/memory: No Concern with reasoning/judgement: No Is patient a fall risk: No Social Assessment: Does patient have a primary account executive healthcare: No Does patient have an emergency contact on file: Yes Does patient need referral to social security specialist: No Does patient need referral to advocacy group: No Home Health Assessment: Is the patient in a safe home environment?: Yes Is the patient able to store their medication as directed?: Yes Does the patient have a support network at home?: Yes Reviewed potential home safety hazards with patient: Yes Economic Assessment: Patient is agreeable to medication copay: Yes Actual Copay: $: 4 Days Supply: 28 Welcome Packet and Rights and Responsibilities: Patient provided welcome packet/rights and responsibilities: Yes Specialty Med Adherence Therapy Assessment: No flowsheet data found. Current Medication Dosing/Route/Frequency: Actemra Actpent 162mg/0.9mL PNKT inject the contents of 1 pen subcutaneously every 7 days. Appropriate Therapy: Yes Current joints affected: swelling in ankles Current pain rating (1-10): 0/10 today Estimated duration of morning joint stiffness: none Estimated number of recent flares: yes - 1 Recent systemic corticosteroid use: yes - prednisone taper Patient's Problems/Needs: PMR/GCA- controlling sx with steroid sparing agent Expected Outcome: decrease in pain/increase in mobility Patient's goals: Patient's specific desired goal: Goals ??? Self-Management Judson Patel Jr. Is hoping to decrease his prednisone dosage and keep pain levels at a minimum.He is hoping that Actemra will be able to keep him walking since before prednisone he had a hard time standing up and walking around. Measured by: prednisone usage, # of flares per day, mobility Time-frame to meet goal: 3 to 6 months Monitoring requirements for prescribed medication: TB screening, CBC, LFTs, lipid panel, signs and symptoms of infection, signs and symptoms of MARITIME GUARD demyelinating disorders Care Plan Reviewed and Approved by both Pharmacist and Patient: Yes Interventions (if applicable): No Pharmacist follow-up needed: Yes Patient understands no changes to current drug regimen were made at the appointment and that [facility] (summary located at top of note) for provider review and follow up. Danica Taylor RPH 09/14/22 11:11 AM documented in this encounter Plan of Treatment Not on file documented as of this encounter Goals Goal Patient Goal Type Associated Problems Recent Progress Patient-Stated? Author DH Self-Management Patient Facing Action Plan No Danica Taylor [facility] Note: Judson Patel Jr. Is hoping to decrease his prednisone dosage and keep pain levels at a minimum. He is hoping that Actemra will be able to keep him walking since before prednisone he had a hard time standing up and walking around. documented as of this encounter Visit Diagnoses Not on filedocumented in this encounter Care Teams Proof Machine Operator Supervisor Relationship Specialty Start Date End Date Yesy Nagy APRN [address] [place] [address] PCP - General Geriatric Medicine 08/02/22 documented as of this encounter
--- OUTSIDE RECORDS SUMMARY | 2024-06-19 02:37 | XMS_ITS | Encounter Summary ---
Author Organization [facility] Address [facility] [place] [address] Care Team Providers Care Interactive Multimedia Designer Name Role Phone Unknown Primary Care Provider Unavailabl e Encounter Details Date Type Department Care Team (Late st Contact Info) Description 07/14/2022 [place] [phone] Ananya Payan [facility] [place] [address] Social History Tobacco Use Types Packs/Day Years [...] Telephone Encounter - Ananya Payan DO - 07/14/2022 10:48 AM EDT Telephone consult from PCP-Yesy Morales 71 yo male with recent dx of PMR early May. Noted elevated inflammatory markers. Hip and shoulder pain. Was started on prednisone 10 mg (pt declined high dose). No improvement in symptoms. Then was then started on 30mg prednisone and had resolution of joint pain and improvement in inflammatory markers. He was seen in follow up today with worse leg pain weakness, difficultly walking, and LE edema. Noted to have 5/5 strength on exam ? of steroid myopathy -Pend CRP, ESR, CK level Ddx: steroid myopathy, edema leading to leg pain and difficulty walking, myositis - recommend urgent referral to see me in rheumatology clinic to further eval. Can see on 07/26 at 1100 - back up with Dr. Stephen Payan DO Rheumatology Fellow Pager: [phone] documented in this encounter Plan of Treatment Not on file documented as of this encounter Visit Diagnoses Not on filedocumented in this encounter Care Teams Interactive Multimedia Designer Relationship Specialty Start Date End Date Unknown None PCP - General 05/31/21 08/01/22 documented as of this encounter
--- OUTSIDE RECORDS SUMMARY | 2024-06-19 02:37 | XMS_ITS | Encounter Summary ---
Author Organization [facility] [address] Care Team Providers Care Apartment Assistant Manager Name Role Phone Yesy Nagy APRN Primary Care Provider Encounter Details Date Type Department Care Team (Late st Contact Info) Description 08/09/2022 Orders [place] [phone] Ananya Payan, [facility] [place] [address] Social History Tobacco Use Types Packs/Day Years [...] on filedocumented in this encounter Care Teams Apartment Assistant Manager Relationship Specialty Start Date End Date Yesy Nagy APRN [address] [place] [address] PCP - General Geriatric Medicine 08/02/22 documented as of this encounter
--- OUTSIDE RECORDS SUMMARY | 2024-06-19 02:37 | XMS_ITS | Encounter Summary ---
Author Organization [facility] [place] [address] Care Team Providers Care Animal Nutritionist Name Role Phone Yesy Nagy APRN Primary Care Provider Encounter Details Date Type Department Care Team (Late st Contact Info) Description 08/09/2022 Telephone [place] [phone] Ananya Payan DO [facility] [place] [address] Social History Tobacco Use Types Packs/Day Years [...] Telephone Encounter - Ananya Payan DO - 08/09/2022 3:07 PM EDT Labs reviewed, Inflammatory markers are elevated on 25 mg of Prednisone. Sed rate 60, CRP 20. Givenhx of intermittent TORRES and gait imbalance- concerned or GCA. - currently the patient has no vision changes, TORRES. - Will increase Prednisone to 60 mg daily - recheck sed rate, CRP in 1 week (will send labs to [facility]) IF inflammatory markers are normalized, will plan to start slowly tapering the prednisone. Plan for follow up in 1 month -Sep 14. 10:15 ( pt is going to check that he can get a ride that day, will call pt back tomorrow to confirm) . Ananya Payan DO Rheumatology Fellow Pager: [phone] documented in this encounter Plan of Treatment Scheduled Orders Name Type Priority Associated Diagnoses Orde r Schedule Sedimentation rate Lab Routine GCA (giant cell arteritis) Expected: 08/16/2022 (Approximate), Expires: 02/15/2023 documented as of this encounter Visit Diagnoses Diagnosis GCA (giant cell arteritis) Giant cell arteritis documented in this encounter Care Teams Animal Nutritionist Relationship Specialty Start Date End Date Yesy Nagy [place] [address] PCP - General Geriatric Medicine 08/02/22 documented as of this encounter
--- OUTSIDE RECORDS SUMMARY | 2024-06-19 02:37 | XMS_ITS | Encounter Summary ---
[place] [address] Care Team Providers Care Training And Development Assistant Name Role Phone Yesy Nagy APRN Primary Care Provider [phone] Reason for Referral * Consultation (Routine) - Closed Specialty Diagnoses / Procedures Referred By Contac t Referred To Contact Rheumatology Diagnoses GCA (giant cell arteritis) Yesy Nagy APRN [address] [place] [address] [facility] [address] [place] [phone] Referral ID Status Reason Start Date Expiration Date V isits Requested Visits Authorized [id number] Closed Consult, Test & Treat 08/02/2022 08/02/2023 6 6 Encounter Details Date Type Department Care Team (Latest Contact Info) Description 08/02/2022 Transcribe Orders eDH Incoming Referrals [phone] Yesy Nagy APRN [address] [place], [place] [address] GCA (giant cell arteritis) Social History Tobacco [...] Outpatient Referral Routine GCA (giant cell arteritis) Ordered: 08/02/2022 documented as of this encounter Visit Diagnoses Diagnosis GCA (giant cell arteritis) Giant cell arteritis documented in this encounter Care Teams Training And Development Assistant Relationship Specialty Start Date End Date Yesy Nagy APRN [address] [place] [address] PCP - General Geriatric Medicine 08/02/22 documented as of this encounter
--- OUTSIDE RECORDS SUMMARY | 2024-06-19 02:37 | XMS_ITS | Encounter Summary ---
Author Organization [facility] Address [facility] [place] [address] Care Team Providers Care Insect Control Inspector Name Role Phone Unknown Primary Care Provider Unavailabl e Encounter Details Date Type Department Care Team (Late st Contact Info) Description 07/17/2022 [place] [phone] Brittni Hamilton Social History Tobacco Use Types [...] * Telephone Encounter - Brittni Hamilton - 07/17/2022 2:11 PM EDT Called both phones-both continue to ring and then disconnect. Was going to try and get pt scheduleddue to Robe yu's note in chart documented in this encounter Plan of Treatment Not on file documented as of this encounter Visit Diagnoses Not on filedocumented in this encounter Care Teams Insect Control Inspector Relationship Specialty Start Date End Date Unknown None PCP - General 05/31/21 08/01/22 documented as of this encounter
--- OUTSIDE RECORDS SUMMARY | 2024-06-19 02:37 | XMS_ITS | Encounter Summary ---
Author Organization [facility] Address [facility] [place] [address] Care Team Providers Care Wet Room Supervisor Name Role Phone Ozzie Davis Primary Care Provider Encounter Details Date Type Department Care Team (Late st Contact Info) Description 06/14/2016 Telephone [place] [phone] [facility] [place] [address] Social History Tobacco Use Types Packs/Day Years [...] encounter Miscellaneous Notes * Telephone Encounter - Stephen Murray - 06/14/2016 12:32 PM EDT Spoke with Dr. Cassidy from neuro about this patient. Apparently Mr. Patel was seen in clinicrecently for numbness of the entire R side of his body. As part of the work-up, an BEBO was ordered that was positive for anti-Scl 70 at 7.6, negative ITA. Patient has no apparently symptoms of scleroderma except for some GERD. No pulmonary symptoms, cardiac problems, or renal issues. Skin exam was normal per Dr. Cassidy. Unclear what to make of one lab abnormality in a patient who doesn't sound like he has systemic scleroderma or CREST. However, certainly would be reasonable for rheum referral, which Dr. Cassidy will order. Stephen Murray MD Rheumatology Fellow, PGY-4 documented in this encounter Plan of Treatment Not on file documented as of this encounter Visit Diagnoses Not on filedocumented in this encounter Care Teams Wet Room Supervisor Relationship Specialty Start Date End Date Ozzie Davis PA [address] [place] [address] PCP - General General Internal Medicine 04/12/1605/30 documented as of this encounter
--- OUTSIDE RECORDS SUMMARY | 2024-06-19 02:37 | XMS_ITS | Encounter Summary ---
Author Organization [facility] Address [facility] [place] [address] Care Team Providers Care Yeast Pusher Name Role Phone Ozzie Davis Primary Care Provider [phone] Reason for Visit * Reason Comments Referral * Consultation (Routine) - Closed Specialty Diagnoses / Procedures Referred By Socrates pleitez Referred To Contact Rheumatology Diagnoses Numbness Beau Cassidy MD [facility] [place] [address] [facility] [address] [place] [address] Referral ID Status Reason Start Date Expiration Date V isits Requested Visits Authorized [id number] Closed Consult, Test & Treat 06/14/2016 06/14/2017 1 1 Encounter Details Date Type Department Care Team (Late st Contact Info) Description 06/21/2016 1:00 PM EDT Office [place] [phone] Vianney Can MD [facility] [place] [address] Stephen Murray MD [facility] [place] [address] Peripheral polyneuropathy; IFG (impaired fasting glucose) Social History Tobacco Use Types Packs/Day Years [...] Sign Reading Time Taken Comments Blood Pressure 146/64 06/21/2016 12:38 PM EDT Pulse 63 06/21/2016 12:38 PM EDT Temperature 36.9 ??C (98.5 ??F) 06/21/2016 12:38 PM E DT Respiratory Rate - - Oxygen Saturation 100% 06/21/2016 12:38 PM EDT Inhaled Oxygen Concentration - - Weight 68 kg (150 lb) 06/21/2016 12:38 PM EDT Height 172.7 cm (5' 8) 06/21/2016 12:38 PM EDT Body Mass Index 22.81 06/21/2016 12:38 PM EDT documented in this encounter Progress Notes * Terri Stephen Sanchez - 06/21/2016 1:00 PM EDT Rheumatology Outpatient Consultation Note Reason for Consult: Judson Nagel Jorge Funk is a 65 y.o. male who we are seeing at the request of Ozzie Davis for evaluation of positive SCL70. HPI: The has had a fairly extensive history of unusual neurological symptoms that are well documented byrecent neurology visit. Suffice it to say, he's had issues with numbness, decreased sensation, weakness, tingling, headaches, and bone pain that have come and gone for the past 6-7 years, but mostly since 2014. Specific bone pains include pain in his palms that would travel into his arms like a ernie n deep in his bones. These symptoms would last a few hours, usually in the AM and really only during the summer months. Several months ago this same type of pain went to his breastbone prompting himto see his PCP. His PCP told him one of the tests indicated some type of inflammation. The most severe symptom was about 3 months ago when he was walking around his house he felt the inability to move and was on his bed for 2-5 minutes unable to move. Then slowly he was able to move again. 4-5 days later he had another similar episode but he wasn't as weak. Most recently he had his most disturbing episode when he had numbness followed by pain in his L foot that shot up his L leg and was 9/10. He took 6 aspirin that completely resolved the pain and he was able to sleep. He woke up the next day and 10 minutes after getting up the pain started again. He called his PCP who prescribed him tramadol, which he took only one of. His symptoms resolved completely after 2.5 days except his continued to have numbness in both feet over his toes only. He stillhas this, but it's minor. He's felt good over the last 3 weeks. He also has whole body weakness. As part of this work-up he had a cardiac MRI that his PCP said was normal and CXR that was normal. ROS (positive in bold): General fevers, chills, night sweats with temp swings, weight loss/gain HEENT oral ulcers, dry eyes, dry mouth, red/itchy eyes Card chest pain, palpitations Pulm SOB intermittent, cough, FUNG GI abd pain, nausea (conrad when he looks up), vomiting, diarrhea, constipation, dysphagia, reflux - rare and responds to Tums dysuria, hematuria, genital ulcers, changes to color of urine, polyuria MS arthritis, arthralgia, muscle aches Neuro see HPI as well as decreased short term memory Skin Raynaud's, rash, hair loss, photosensitivity, hair changes Psych depression, anxiety, difficulty sleeping Medical History: HTN HLD GERD Alcohol abuse Hepatitis B s/p treatment in 1971 unconventionally Surgical History: Appy Tonsillectomy Family Hx: Mother: DM2 Father: Prostate Ca PGF: Prostate Ca No family history of RA, SLE, OA, Sjogren's, Scleroderma, or gout Social History: Tob: Quit smoking in his 20s after 5-6 pack-years EtOH: 6 pack of beer daily Illicits: Eugenia Lives in [place], [place] with a cat 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 atenolol (TENORMIN) 50 mg Tablet Take 50 mg by mouth daily. ??? lisinopril (PRINIVIL;ZESTRIL) 10 mg Tablet Take 10 mg by mouth daily. ??? tamsulosin (FLOMAX) 0.4 mg Capsule, Sust. Release 24 hr Take 0.4 mg by mouth daily. ??? aspirin 325 mg Tablet Take 325 mg by mouth daily. ??? traMADol (ULTRAM) 50 mg Tablet Take 50 mg by mouth every 6 hours as needed for Pain. No current facility-administered medications on file prior to visit. Allergies: No Known Allergies Physical Examination: BP 146/64 Pulse 63 Temp 36.9 ??C (98.5 ??F) (Oral) Ht 172.7 cm (5' 8) Wt 68 kg (150 lb) SpO2 100% BMI 22.81 kg/m2 General: Well appearing middle aged male, NAD HEENT: Mucous membranes are moist, no oral mucosal ulcerations Neck: Supple, no lymphadenopathy, full range of motion Cardiovascular: RRR, no m/r/g, normal S1/S2, 2+ radial pulses Lungs: CTA b/l no w/r/r Abdomen: Soft, nontender, nondistended, normal active bowel sounds, no hepatosplenomegaly Neuro: Alert and oriented x3. Cranial nerves II through XII grossly intact. Strength 5/5 throughout, Sensation to light touch is grossly normal throughout with the one exception being his toes where he has decreased sensation. Tremor with outstretched arms/hands Skin: no rashes or lesions noted Nails: no nail pitting, normal nailfold capillaries Extremities: Shoulders: FROM, non-tender to palpation Elbows:FROM Wrists: FROM, no swelling, non-tender Hands: No synovitis, no MCP compression tenderness, full claw and fist Hips: FROM, no tenderness Knees: FROM, no effusion, no tenderness Ankles: FROM, non-tender, no effusion Feet: no MTP compression tenderness Laboratory Data/Studies: Work-up per PCP: Essentially normal MRI/MRA RF neg ESR nl at 29 CRP 0.39 (ULN 0.30) TSH nl CBC wnl BMP 135/4.6/101/25/22/1.1/155 LFTs wnl Labs in eDH: SPEP nl Lyme neg Syphilis IgG neg [place] 11 HIV neg B1/B6/folate normal ITA neg BEBO neg except for SCL70 which was 7.6 EMG c/w peripheral neuropathy Assessment: 65 yo M referred for positive SCL-70 with very mild elevation inflammatory markers. Overall his clinical picture is puzzling to me, but based on his symptoms and lack of exam findings I do not think he has a connective tissue disease like scleroderma or CREST. He has no involvement of his skin, GI tract, lungs, heart, or kidneys. Also no joint pain, Raynaud's, or significant GERD symptoms. At this point would defer work-up back to his neurologist to consider things like alcoholic or diabetic (given his glucose of 155) neuropathy or another primary cause of what really sounds more like PNS disease given his EMG findings, numbness, and subjective weakness. Recommendations: -Check A1c -Encouraged EtOH cessation and told him his PCP can help with this -Return to PCP and neurologist to continue work-up Should he develop symptoms of scleroderma (thickened skin, significant GERD, HTN accompanied by ELDA, ILD, CHF, or other possible symptoms) I am happy to see him in follow-up. The patient was seen and discussed with Dr. Pamella Murray MD Rheumatology Fellow, PGY-4 CC: DARLINE HEADLEY ADDENDUM: Called Judson and let him know A1c c/w IFG. 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 * Vianney Can MD - 06/21/2016 1:00 PM EDT I saw Mr. Patel with Dr. Murray and confirmed porras portions of the history and physical exam. I agree with the details documented in Dr. Murray's note. He has a fine intention tremor. Main finding is peripheral neuropathy--with the workup initiated byneurology. Alcohol and DM may be contributors. documented in this encounter Miscellaneous Notes * Addendum Note - Belinda Bolden - 06/21/2016 2:40 PM EDTAddended by: BELINDA BOLDEN on: 06/21/2016 02:40 PM Modules accepted: Orders documented in this encounter Plan of Treatment Not on file documented as of this encounter Procedures Procedure Name Priority Date/Time Associated Diagnosis Comments HEMOGLOBIN A1C Routine 06/21/2016 2:49 PM EDT Peripheral polyneuropathy IFG (impaired fasting glucose) documented in this encounter Results * (ABNORMAL) Hemoglobin A1c (06/21/2016 2:49 PM EDT) Hemoglobin A1C 6.0(H) 4.3 - 5.6 % [facility] Comment: Reference Range: 4.3 - 5.6% 5.7 - 6.4% - Increased Risk of Developing Diabetes Mellitus >= 6.5% - Consistent with diagnosis of Diabetes Mellitus In the absence of hyperglycemia (i.e. plasma glucose > 200 mg/dL) or classic symptoms of hyperglycemia a repeat measurement of HbA1c should be performed on a separate sample to confirm the diagnosis. Diagnosis and Classification of Diabetes Mellitus, Diabetes Care 2013; 36: Suppl. 1, S67-74 Est Avg Gluc 126 mg/dL [facility] Comment: eAG equivalents for HbA1c percentages: HbA1c(%) ?eAG(mg/dL) 6.0 ?126 6.5 ?140 7.0 ?154 7.5 ?169 8.0 ?183 8.5 ?197 9.0 ?212 9.5 ?226 10.0 ? 240 Limitations: The eAG calculation has not been validated on women, individuals below 18 years old and above 70 years old, and individuals with hemoglobinopathies. Additional resources are available on the ADA website: http://EUROBOX.com/DHMCadacalc Alejandro BRAGA, Dayana J, Jelly R, et al. ??Translating the A1C assay into estimated average glucose values. ??Diabetes Care 2008:31(8):7086-4220. Blood specimen (specimen) 06/21/2016 2:49 PM EDT 06/21/2016 3:02 PM EDT Narrative Resulting Agency Comment Spec In Lab Vianney Can MD CHEMISTRY ORDERABLES [facility] [place] [address] documented in this encounter Visit Diagnoses Diagnosis Peripheral polyneuropathy Unspecified hereditary and idiopathic peripheral neuropathy IFG (impaired fasting glucose) Impaired fasting glucose documented in this encounter Care Teams Yeast Pusher Relationship Specialty Start Date End Date Ozzie Davis PA [address] [place] [address] PCP - General General Internal Medicine 04/12/1605/30 documented as of this encounter
--- OUTSIDE RECORDS SUMMARY | 2024-06-19 02:37 | XMS_ITS | Encounter Summary ---
Author Organization [facility] [place] [address] Care Team Providers Care Planting Machine Crewman Name Role Phone Yesy Nagy APRN Primary Care Provider [phone] Reason for Referral * Consultation (Routine) - Closed Specialty Diagnoses / Procedures Referred By Socrates pleitez Referred To Contact Neurology Diagnoses Gait instability GCA (giant cell arteritis) Unclear if worsening gait imbalance is associated with diagnosis of GCA. Its been persistent for the last few months. Concern would be for a posterior stroke. I will obtain further imaging of his head with MRI/MRA, and refer to neurology for further evaluation. Ananya Payan, [facility] [place] [address] [facility] [address] [place] [address] Referral ID Status Reason Start Date Expiration Date V isits Requested Visits Authorized [id number] Closed Consult, Test & Treat 08/25/2022 08/25/2023 1 1 Encounter Details Date Type Department Care Team (Late st Contact Info) Description 08/25/2022 [place] [phone] Ananya Payan [facility] [place] [address] Social History Tobacco Use Types Packs/Day Years [...] Telephone Encounter - Ananya Payan DO - 08/25/2022 10:42 AM EDT Patient has continued to have gait imbalance despite high-dose of prednisone of 60 mg. He does notethat his had gait imbalance for a long time did notice worsening symptoms in April. He still notes intermittent fleeting headaches. He does state overall he does feel improved. He has had no vision changes jaw claudication. There is no temporal artery tenderness. No joint pain. He had repeat labs after 1 week of being on 60 mg of prednisone. Both sed rate and CRP are improved, sed rate down to 20, CRP 6. Unclear if worsening gait imbalance is associated with diagnosis of GCA. Its been persistent for the last few months. Concern would be for a posterior stroke. I will obtain further imaging of his head with MRI/MRA, and refer to neurology for further evaluation. -He is currently on aspirin daily. We will continue this. -For his prednisone will continue on 60 mg until 08/30/2022 then decreased to 50 mg x 2 weeks. He will follow-up with me on September 14 on . We will have him get labs sed rate CRP prior to his appointment. For GCA we will start steroid sparing therapy with tocilizumab. Hepatitis C, hepatitis B, HIV, TB all negative. -We will message pharmacist to help coordinate this with his insurance. Due to long-term steroid use -Continue calcium vitamin D supplement -Start Bactrim double strength 3 times a week for PJP prophylaxis prophylaxis -We will discuss DEXA scan at his appointment in August. #GCA #Long-term steroid use #Gait instability Plan -Referral to neurology -Order MRI MRA of brain- sent to [facility] -Continue prednisone 60 mg daily until 08/30/2022 then decrease to 50 mg daily -Continue daily aspirin -Continue calcium vitamin D supplement -Start Bactrim double strength 3 times a week Plan was discussed with Dr. Shaikh \ documented in this encounter Plan of Treatment Scheduled Orders Name Type Priority Associated Diagnoses Orde r Schedule Sedimentation rate Lab Routine GCA (giant cell arteritis) Expected: 09/11/2022 (Approximate), Expires: 03/13/2023 Scheduled Referrals Name Type Priority Associated Diagnoses Orde r Schedule Referral to Neurology Outpatient Referral Routine Gait instability GCA (giant cell arteritis) Ordered: 08/25/2022 documented as of this encounter Visit Diagnoses Diagnosis Gait instability Abnormality of gait GCA (giant cell arteritis) Giant cell arteritis Repeated falls Other symptoms involving nervous and musculoskeletal systems documented in this encounter Care Teams Planting Machine Crewman Relationship Specialty Start Date End Date Yesy Nagy APRN [address] [place] [address] PCP - General Geriatric Medicine 08/02/22 documented as of this encounter
--- OUTSIDE RECORDS SUMMARY | 2024-06-19 02:37 | XMS_ITS | Encounter Summary ---
Author Organization [facility] Address [facility] [place] [address] Care Team Providers Care Garland Maker Name Role Phone Yesy Nagy APRN Primary Care Provider [phone] Reason for Visit * Consultation (Routine) - Closed Specialty Diagnoses / Procedures Referred By Socrates pleitez Referred To Contact Rheumatology Diagnoses GCA (giant cell arteritis) Yesy Nagy APRN [address] [place] [address] [facility] [address] [place] [address] Referral ID Status Reason Start Date Expiration Date V isits Requested Visits Authorized [id number] Closed Consult, Test & Treat 08/02/2022 08/02/2023 6 6 Encounter Details Date Type Department Care Team (Late st Contact Info) Description 08/08/2022 3:45 PM EDT Office [place] [address] Linda Shaikh, [facility] [place] [address] Ananya Payan, [facility] [place] [address] PMR (polymyalgia rheumatica); Osteoporosis, unspecified osteoporosis type, unspecified pathological fracture presence Social History Tobacco Use Types Packs/Day Years [...] Sign Reading Time Taken Comments Blood Pressure 141/69 08/08/2022 3:54 PM EDT Pulse 74 08/08/2022 3:54 PM EDT Temperature - - Respiratory Rate - - Oxygen Saturation 99% 08/08/2022 3:54 PM EDT Inhaled Oxygen Concentration - - Weight 66.5 kg (146 lb 9.6 oz) 08/08/2022 3:54 P M EDT Height 170.2 cm (5' 7) 08/08/2022 3:54 PM EDT Body Mass Index 22.96 08/08/2022 3:54 PM EDT documented in this encounter Patient Instructions * Patient Instructions* Ananya Payan DO - 08/08/2022 3:45 PM EDT Prednisone 20 mg X 1 week, then 17.5mg X 1 week, then 15mg X 2 weeks, then 12.5 mg X 2 weeks, then 10mg X 1 month, 9 mg X 1 months, 8mg X 1 month, 7 mg X 1 month, 6 mg X 1 month, 5mg X1 month, 4 mg X1 month, 3 mg X 1 month, 2 mg X 1 month, 1 mg X 1 month - Call PCP if you develop Headache or vision loss LEMUEL - if you have worse dizzy/TORRES- call rheumatology office. Calcium 600mg twice a day and Vitamin D -1000 IU daily supplement documented in this encounter Progress Notes * Ananya Payan DO - 08/08/2022 3:45 PM EDT Rheumatology Outpatient Consultation Note Reason for Consult: The patient is seen at the request of Unknown for evaluation and treatment of PMR History of Present Illness: Judson Patel is a 71 y.o. male with PMHx of HTN, BPH, alcohol use disorder, peripheral neuropathy in feet who presents today for evaluation of PMR. Patient reports he woke up at the end of March early April with sudden onset of diffuse pain throughout his body. He is unable to localize the pain states it was in all his joints and throughout his body. He notes he took a few aspirin with some improvement and by the end of the day the pain may have improved some. He was seen by his primary care physician the next day and was started on prednisone 40 mg for possible diagnosis of PMR. Time of symptom onset he had no headache, vision changes. Sincebeing on prednisone states it was a miracle. Completely resolved the pain throughout his body. Deborah prednisone was tapered to 30 mg then 25 mg. While being on the prednisone he has noted worsening disequilibrium especially with change in the position and standing. He notes in the past he has had difficulty with numbness tingling down his legs, and has been seen by neurology. He denies any scalp tenderness. Denies diffuse headaches, but notes intermittent sharp sensation in his head. He denies vision changes, vision loss. He feels since being on prednisone disequilibrium has worsened. Patient also reports insomnia, increased appetite, thinning of skin. He reports he was seen by optometry with a normal exam. Also reports intermittent episodes of edema in the lower extremity at times making it harder to put shoes and socks on. Currently edema is improved. It is worse at the end ofthe day. He is intermittently taken prednisone in the past. Notes he has had an echocardiogram in the past has been normal. Patient was previously evaluated by rheumatology in 2016 for positive SCL 70. Impression at that time there is no underlying connective tissue disease. Patient reports is difficult for him to obtain a ride to be seen here at [facility] prefers to follow-up with his PCP ROS: General (-)fevers, (-)chills, (-)night sweats, (-)wt loss/gain. HEENT (-)inflammatory eye disease, (-)vision loss, (-)epistaxis, (-)bleeding gums, (-)oral ulcers, (-)dry eyes, (+)dry mouth, (-)dysphagia, (-)GERD, (-)photo sensitivity CVS (-)chest pain, (-)palpitations Pulm (-)shortness of breath, (-)FUNG, (-)wheezes, (-)cough, (-)pleuritic pain GI (-)N/V, (-)abdominal pain, (-)hematochezia + increased appetite (-)hematuria, (-)dysuria MS (-)muscle weakness, (-)paralysis, (-)joint pain Endo (-)thyroid disorders, (-)diabetes Neuro (-)focal weakness, (-)paresthesias, (+)gait instability. Skin (-)Raynaud's, (-)rashes - no psoriasis, + thin skin/easy bruising Psych (-) mood disorder. +Insomnia Family Hx: M: diabetes F: HTN, CAD, prostate CA. siblings: (-)RA, (-)lupus, (-)scleroderma, (-)sjogren's, (-)gout Social Hx: (-)Smoking- former tobacco use, (+) ETOH uses daily 4-5 beers a day, (-)drugs Physical Examination: BP 141/69 (BP Location (NBP): Right arm, Patient Position: Sitting) Pulse 74 Ht 170.2 cm (5' 7) Wt 66.5 kg (146 lb 9.6 oz) SpO2 99% BMI 22.96 kg/m?? General: AAOx3, NAD HEENT: (-)scleral injection, mucous membranes are moist, no oral mucosal ulcerations Skin: (-)ulcers, (-)rash Neck: Supple, no lymphadenopathy, full range of motion. Cardiovascular: RR, (-)murmurs, rubs, or gallops. Lungs: Clear to auscultation bilaterally. (-)R/R/W Back: Nontender over the spine and costovertebral angles bilaterally. Neuro: Alert and oriented x3. Strength 5/5 throughout, cranial nerves II through XII intact, Romberg negative, [id number] normal [id number] normal resting tremor noted. Gait slightly unsteady when moving from sitting to standing once walking it is more steady. Extremities: Shoulders: FROM, non-tender to palpation Elbows:FROM, (-)pain, (-)nodules Wrists: FROM, no swelling, non-tender Hands: No synovitis, no MCP compression tenderness, full claw and fist. Normal nailfold capillarieson capillaroscopy. No nail pitting Hips: FROM Knees: (-)effusions, non-tender ROM Ankles: FROM, non-tender, no swelling Feet: no MTP compression tenderness, no toe splaying Laboratory Data: ESR 35, CRP 3.25-uncertain date Studies: No imaging studies Impression: Judson Patel Jr. is a 71 y.o. male past medical history of hypertension, BPH, alcohol use disorder, peripheral neuropathy who presents today for evaluation of PMR. Patient describes acute onset diffuse joint/body pain that responded to prednisone 40 mg daily. He does note a few intermittent episodes of short sharp headache, but no visual changes, reportedly normal eye exam. He is also complaining of unsteady gait which has worsened since being on prednisone. He does have a unsteady gait when moving from sitting to standing but cerebellar exam is normal, Romberg is negative. Laboratory exam was significant for elevated CRP of 3.25, uncertain if this was onor off prednisone. His history seems consistent with a diagnosis of PMR. Given this history of intermittent headaches and disequilibrium is possible there may be underlying GCA. He currently has no complaints of headache vision changes at this time. A biopsy would not be helpful at this stage givenhe has been on prednisone for over 2 months. Patient with GCA are at risk for posterior circulationstrokes. We will check inflammatory markers today, CBC, CMP. given disequilibrium symptoms we will also check B12, SPEP. Recommend to start tapering the prednisone (as noted below), and monitor for symptoms ( headache, vision loss, shoulder or hip pain). As patient is on long-term prednisone he is at risk for osteoporosis, would recommend DEXA scan, referral ordered today. Also recommend calcium vitamin D supplement. Also recommend patient be up-to-date on vaccines given he is immunosuppressed on prednisone and high risk for infection. Recommend COVID-vaccine, Pneumovax, shingles, flu -patient reported he does not take vaccines -Patient has difficulty obtaining transportation to come to appointments at [facility]. Would prefer to follow with his PCP in the future. Okay for primary care physician to follow plan for prednisone tapering below and monitor for symptom recurrence. If symptoms do recur can go back up toprednisone dose that he was asymptomatic at and taper slowly. Patient or PCP can call with any concerns. -But if he redevelops headache/vision changes as tapers down the steroids he should be seen in the rheumatology office, would recommend CTA the brain, consideration for temporal artery biopsy to further evaluate for GCA. Recommendations: -Take prednisone 20 mg daily x 1 week Then 17.5 mg daily x 1 week Then 15 mg daily for 2 weeks, Then,12.5 mg daily for 2 weeks, Then, 10 mg daily for 2 weeks, Then, 9 mg daily for 1 month, Then 8 mg daily for 1 month, Then 7 mg daily for 1 month, Then 6 mg daily for 1 month, Then 5 mg daily for 1 month, Then 4 mg daily for 1 month, Then 3 mg daily for 1 month, Then 2 mg daily for 1 month, Then 1 mg daily for 1 month and stop. -Start calcium vitamin D supplement -Referral for DEXA scan -Labs today CBC, CMP, ESR, sed rate, SPEP, B12 -Patient instructed to call our office or PCP if he developed any vision changes, headache, worsening disequilibrium while tapering the prednisone. -Due to transportation issues can follow-up if needed CC: Yesy Nagy * Linda Shaikh DO - 08/08/2022 3:45 PM EDT ATTENDING ADDENDUM The patient's history was reviewed, and I interviewed and examined the patient with . I agree with her summary, findings, and plan. Judson Patel Jr. Is a 71 y.o. male with s/s consistent with PMR but also with initial transientscalp tenderness that resolved with corticosteroids, which he has been on for some time. Concern for GCA.. labs checked today show elevaled inflammation markers concerning for active disease. Plan CTA and lilkely initiation w tcz documented in this encounter Plan of Treatment Not on file documented as of this encounter Procedures Procedure Name Priority Date/Time Associated Diagnosis Comments HC VENIPUNCTURE Routine 08/08/2022 5:39 PM EDT PMR (polymyalgia rheumatica) HEMOGRAM Routine 08/08/2022 5:39 PM EDT PMR (polymyalgia rheumatica) DIFFERENTIAL, AUTOMATED Routine 08/08/20 5:39 PM EDT PMR (polymyalgia rheumatica) HC ESR-SEDIMENTATION RATE, BLOOD Routine 08/08/2022 5:39 PM EDT PMR (polymyalgia rheumatica) HC CBC,PLT & AUTO DIFF Routine 5:39 PM EDT PMR (polymyalgia rheumatica) HC SERUM PROT. ELECTROPHORESIS Routine 08/08/2022 5:39 PM EDT PMR (polymyalgia rheumatica) HC VITAMIN B12 SERUM Routine 08/08/2022 5:39 PM EDT PMR (polymyalgia rheumatica) COMPREHENSIVE METABOLIC PANEL (NON-FASTING) Routine 08/08/2022 5:39 PM EDT PMR (polymyalgia rheumatica) documented in this encounter Results * (ABNORMAL) Differential, Automated (08/08/2022 5:39 PM EDT) Neutrophils % 90.4 % [facility] Neutr Abs (ANC) 10.07(H) 1.70 - 6.10 x10(3)/mc L [facility] Lymphocytes % 5.3 % [facility] Lymphocytes Abs 0.6(L) 0.9 - 3.2 x10(3)/mc L [facility] Monocytes % 3.1 % [facility] Monocyte Abs 0.4 0.3 - 0.9 x10(3)/mc L [facility] Eosinophils % 0.0 % [facility] Eosinophils Abs 0.0 0.0 - 0.4 x10(3)/mc L [facility] Basophils % 0.2 % [facility] Basophils Abs 0.0 0.0 - 0.1 x10(3)/mc L [facility] Immature Gran % 1.00 % [facility] Comment: Immature granulocytes(IG's)percentage and absolute count will include metamyelocytes, myelocytes, and promyelocytes. Blood smears from CBCs yielding IG's will be scanned manually for concordance. If this scan disagrees with the automated IG or if promyelocytes are noted, a manual differential will be performed. Carrol Gran Abs 0.11(H) 0.00 - 0.04 x10(3)/ L [facility] Blood 08/08/2022 5:39 PM EDT 08/08/2022 5:51 PM EDT Narrative Resulting Agency Comment Spec In Lab Ananya Payan DO HEMATOLOGY ORDERABLE S [facility] [place] [address] * (ABNORMAL) Hemogram (08/08/2022 5:39 PM EDT) WBC 11.1(H) 4.0 - 9.5 x10(3)/[facility] RBC 3.92(L) 4.58 - 5.54 x10(6)/[facility] Hemoglobin 13.1(L) 13.7 - 16.5 g/dL [facility] Hematocrit 36.0(L) 40.5 - 48.5 % [facility] MCV 91.8 82.9 - 93.1 [facility] MCH 33.4(H) 27.5 - 32.1 pg [facility] MCHC 36.4(H) 32.0 - 35.7 g/dL [facility] Platelets 273 145 - 357 x10(3)/[facility] RDWSD 47.6(H) 36.0 - 45.0 [facility] RDWCV 14.1(H) 11.4 - 13.8 % [facility] MPV 8.7 7.6 - 12.9 [facility] nRBC % Auto 0.0 % [facility] nRBC Abs Auto 0.000 0.000 - 0.000 x10(3)/[facility] Blood 08/08/2022 5:39 PM EDT 08/08/2022 5:51 PM EDT Narrative Resulting Agency Comment Spec In Lab Ananya Payan DO HEMATOLOGY ORDERABLE S Performing Organization Address [facility]/ZIP Co de Phone Number [facility] [place] [address] * (ABNORMAL) CRP, acute inflammation (08/08/2022 5:39 PM EDT) CRP 20.2(H) <=4.9 mg/L [facility] Blood 08/08/2022 5:39 PM EDT 08/08/2022 5:51 PM EDT Narrative Resulting Agency Comment Spec In Lab Linda Shaikh DO CHEMISTRY ORDERABL ES Performing Organization Address [facility] Co de Phone Number [facility] [place] [address] * (ABNORMAL) Sedimentation rate (08/08/2022 5:39 PM EDT) Sed Rate 60(H) 3 - 46 mm/hr [facility] Comment: Effective November 05, 2019 new capillary photometric technology has resulted in a change in reference ranges. It is recommended that each ESR result be reviewed with its own age appropriate reference range. Blood 08/08/2022 5:39 PM EDT 08/08/2022 5:51 PM EDT Narrative Resulting Agency Comment Spec In Lab Linda Shaikh DO HEMATOLOGY ORDERAB LES Performing Organization Address [facility]/ZIP Co de Phone Number [facility] [place] [address] * (ABNORMAL) Comprehensive metabolic panel (non-fasting) (08/08/2022 5:39 PM EDT) Glucose Lvl 179 65 - 199 mg/dL [facility] Comment:Diabetes: >=200 mg/d L plus symptoms BUN 18 10 - 20 mg/dL [facility] Creatinine 0.95 0.80 - 1.50 mg/dL [facility] Sodium 130(L) 135 - 145 mmol/L [facility] Potassium 4.1 3.5 - 5.0 mmol/L [facility] Comment: Please note: ??Patients with WBC >100,000 may have falsely elevated Potassium levels. ??For accurate Potassium quantification in these patients send serum separator tube (gold top) for subsequent determinations. ??Contact the Clinical Chemistry Laboratory if there are any questions. Chloride 94(L) 98 - 107 mmol/L [facility] CO2 24 22 - 31 mmol/L [facility] Anion Gap 12 5 - 15 mmol/L [facility] Calcium 8.9 8.5 - 10.5 mg/dL [facility] Total Protein 7.1 6.1 - 8.0 g/dL [facility] Albumin 4.3 3.2 - 5.2 g/dL [facility] AST 18 0 - 39 unit/L [facility] ALT 23 0 - 55 unit/L [facility] Alk Phos 71 40 - 130 unit/L [facility] Total Bilirubin 0.5 0.2 - 1.3 mg/dL [facility] Estimated GFR 85 >=60 mL/min/1. 73 m?? [facility] Comment: This patient's estimated [...] and symptoms in addition to eGFR. Blood 08/08/2022 5:39 PM EDT 08/08/2022 5:51 PM EDT Narrative Resulting Agency Comment Spec In Lab Linda Shaikh DO CHEMISTRY ORDERABL ES Performing Organization Address [facility] Co de Phone Number [facility] [place] [address] * (ABNORMAL) Protein Electrophoresis, serum (08/08/2022 5:39 PM EDT) Total Prot Elec 6.7 6.1 - 8.0 g/dL [facility] Albumin Elect 4.11 3.20 - 5.20 g/dL [facility] Alpha1-Globul in 0.19 0.10 - 0.30 g/dL [facility] Alpha2-Globul in 1.04(H) 0.40 - 0.90 g/dL [facility] Beta Globulin 0.71 0.50 - 1.00 g/dL [facility] Gamma Globulin 0.64 0.50 - 1.30 g/dL [facility] M1 Band None Detected None Detected [facility] Blood 08/08/2022 5:39 PM EDT 08/08/2022 5:51 PM EDT Narrative Resulting Agency Comment Spec In Lab Linda Shaikh DO CHEMISTRY ORDERABL ES Performing Organization Address [facility] Co de Phone Number [facility] [place] [address] * Vitamin B12 (08/08/2022 5:39 PM EDT) Vitamin B-12 458 232 - 1,245 pg/mL [facility] Blood 08/08/2022 5:39 PM EDT 08/08/2022 5:51 PM EDT Narrative Resulting Agency Comment Spec In Lab Linda Shaikh DO CHEMISTRY ORDERABL ES Performing Organization Address [facility] Co de Phone Number [facility] [place] [address] documented in this encounter Visit Diagnoses Diagnosis PMR (polymyalgia rheumatica) Polymyalgia rheumatica Osteoporosis, unspecified osteoporosis type, unspecified pathological fracture presence documented in this encounter Care Teams Garland Maker Relationship Specialty Start Date End Date Yesy Nagy APRN [address] [place] [address] PCP - General Geriatric Medicine 08/02/22 documented as of this encounter
--- OUTSIDE RECORDS SUMMARY | 2024-06-19 02:37 | XMS_ITS | Encounter Summary ---
Author Organization [facility] [place] [address] Care Team Providers Care Director Of Music Therapy Name Role Phone Yesy Nagy MALACHI Primary Care Provider [phone] Reason for Visit * Reason Comments Specialty Pharmacy Review Tocilizumab (A ctemra) 162 mg/0.9 mL Pen Injector Encounter Details Date Type Department Care Team (Late st Contact Info) Description 08/30/2022 Specialty [place] [address] Yuliya Booker, BUSINESS MANAGER [employer] Social History Tobacco Use Types Packs/Day Years [...] Progress Notes * Danica Taylor RPH - 08/30/2022 12:06 PM EDT [facility] has completed a benefits investigation for Judson Patel Jr. to review their eligibility to fill at [facility]. Per patient's medication list they are prescribed Actemra and the medication is able to be filled at the [facility]. Judson Patel Jr. elects to fill with [facility] under current insurance plan's mandate. documented in this encounter Plan of Treatment Not on file documented as of this encounter Goals Goal Patient Goal Type Associated Problems Recent Progress Patient-Stated? Author Self-Management Patient Facing Action Plan No Danica Taylor RPH Note: Judson Nagel Jorge Cisse. Is hoping to decrease his prednisone dosage and keep pain levels at a minimum. He is hoping that Actemra will be able to keep him walking since before prednisone he had a hard time standing up and walking around. documented as of this encounter Visit Diagnoses Not on filedocumented in this encounter Care Teams Director Of Music Therapy Relationship Specialty Start Date End Date Yesy Nagy APRN [address] [place] [address] PCP - General Geriatric Medicine 08/02/22 documented as of this encounter
--- OUTSIDE RECORDS SUMMARY | 2024-06-19 02:37 | XMS_ITS | Encounter Summary ---
[place] [address] Care Team Providers Care Marketing Production Manager Name Role Phone Yesy Nagy APRN Primary Care Provider Encounter Details Date Type Department Care Team (Late st Contact Info) Description 09/13/2022 [place] [address] Jennifer Hebert MA Social History [...] Telephone Encounter - Jennifer Hebert RMA - 09/13/2022 1:38 PM EDT Called patient for pre-charting, no answer. HANNAH [place] documented in this encounter Plan of Treatment Not on file documented as of this encounter Visit Diagnoses Not on filedocumented in this encounter Care Teams Marketing Production Manager Relationship Specialty Start Date End Date Yesy Nagy APRN [address] [place] [id number] PCP - General Geriatric Medicine 08/02/22 documented as of this encounter
--- OUTSIDE RECORDS SUMMARY | 2024-06-19 02:37 | XMS_ITS | Encounter Summary ---
[place] [address] Care Team Providers Care Hospital Account Manager Name Role Phone Yesy Nagy APRN Primary Care Provider Encounter Details Date Type Department Care Team (Late st Contact Info) Description 08/24/2022 [place] [address] Landy Monson RN Social History [...] Telephone Encounter - Landy Monson RN - 08/24/2022 10:48 AM EDT RTC to the patient to discuss the message. Patient did have the lab work done and would like the results of these to see how his inflammatory markers are. Better, or worse? Nurse states she will message Dr Ananya Payan MD for review and response. Patient thanks all for their help. documented in this encounter Plan of Treatment Not on file documented as of this encounter Visit Diagnoses Not on filedocumented in this encounter Care Teams Hospital Account Manager Relationship Specialty Start Date End Date Yesy Nagy APRN [address] [place] [address] PCP - General Geriatric Medicine 08/02/22 documented as of this encounter
--- OUTSIDE RECORDS SUMMARY | 2024-06-19 02:37 | XMS_ITS | Encounter Summary ---
Author Organization [facility] [place] [address] Care Team Providers Care Optical Glass Wet Inspector Name Role Phone Yesy Nagy APRN Primary Care Provider [phone] Reason for Visit * Reason Comments Prior Authorization Actemra Actpen 162 m g/0.9 ml SOAJ Encounter Details Date Type Department Care Team (Late st Contact Info) Description 08/30/2022 Specialty [place] [phone] Toro Kraft, [facility] Social History Tobacco Use Types Packs/Day [...] as of this encounter Progress Notes * Toro Kraft CPHT - 08/30/2022 12:34 PM EDT [facility], Medication Prior Authorization Submission Patient: Judson Patel Jr. Patient : [id number] Patient Address: [facility] [address] [place] [phone] (home) Medication Name: ACTEMRA ACTPEN 162 MG/0.9 ML SUBCUTANEOUS PEN INJECTOR Medication ID: [id number] Subscriber Insurance: [employer] Medicare Subscriber Insurance Comment: Fax: Physician: JOSE F CAMERON Physician Comment: Sent Via: [facility] Carlson: [id number] Ref/Case/PA#: Medication Strength Frequency Requested: Actemra Actpen 162 mg/0.9 ml SOAJ Inject 162 mg (1 Pen) Subcutaneously Every 7 Days Qty/Day Supply: 03/23 New Start: New to Therapy Diagnosis & ICD-10 Code: GCA M31.6 Patient Notified: Yes Submission Notes: - New Medication Toro Kraft CPHT 08/30/22 12:35 PM * Toro Kraft CPHT - 08/30/2022 12:34 PM EDT [facility], Prior Authorization Approval Medication Name: ACTEMRA ACTPEN 162 MG/0.9 ML SUBCUTANEOUS PEN INJECTOR Medication ID: [id number] Approval Dates: 11/26/2021 to 11/25/2023 Insurance requirements/notes: - Patient May Fill With Pharmacy Other Notes: None Case/Reference #: [id number] Approval notification Received via: [facility] Copay: $4.00 Copay assistance: None Copay Notes: None Insurance mandated Pharmacy: [facility] Fillable at [facility] Specialty Pharmacy: Yes Pharmacy staff will be reaching out to the patient to inform them of their medication's approval [employer] health insurance. If applicable, a pharmacist will speak with the patient to offer our specialty pharmacy services and to arrange delivery of their medication. Toro Kraft CPHT 08/30/22 2:18 PM documented in this encounter Plan of Treatment Not on file documented as of this encounter Goals Goal Patient Goal Type Associated Problems Recent Progress Patient-Stated? Author Self-Management Patient Facing Action Plan No Danica Taylor, [facility] Note: Judson Patel Jr. Is hoping to decrease his prednisone dosage and keep pain levels at a minimum. He is hoping that Actemra will be able to keep him walking since before prednisone he had a hard time standing up and walking around. documented as of this encounter Visit Diagnoses Not on filedocumented in this encounter Care Teams Optical Glass Wet Inspector Relationship Specialty Start Date End Date Yesy Nagy APRN [address] [place] [address] PCP - General Geriatric Medicine 08/02/22 documented as of this encounter
--- OUTSIDE RECORDS SUMMARY | 2024-06-19 02:37 | XMS_ITS | Encounter Summary ---
Author Organization [facility] Address [facility] [place] [address] Care Team Providers Care Live Source Operator Name Role Phone Yesy Nagy APRN Primary Care Provider Encounter Details Date Type Department Care Team (Late st Contact Info) Description 08/09/2022 Orders [place] [phone] Ananya Payan, [facility] [place] [address] GCA (giant cell arteritis); Immunosuppressed status Social [...] on file documented as of this encounter Results * HIV Screen, 4th Generation ([facility]/CGP/APD/NLH) (01/23/2023 9:59 AM EST) HIV-1/2 Ab and Ag Negative Negative [facility] Comment: This 4th Generation HIV [...] HIV Comment Low Risk of HIV Infection [facility] Blood 01/23/2023 9:59 AM EST 01/23/2023 10:08 AM EST Narrative Resulting Agency Comment Spec In Lab Linda Alejo Beeew IMMUNOLOGY ORDERAB LES Performing Organization Address [facility] Co de Phone Number [facility] [place] [address] * Hepatitis B Surface Antigen (01/23/2023 9:59 AM EST) HepB Surface Ag Negative Negative [facility] Blood 01/23/2023 9:59 AM EST 01/23/2023 10:08 AM EST Narrative Resulting Agency Comment Spec In Lab Linda Alejo Neel CHEMISTRY ORDERABL ES Performing Organization Address [facility] Number [facility] [place] [address] * Hepatitis B Surface Antibody (01/23/2023 9:59 AM EST) HepB Surface Ab Quant <3.5 IU/L [facility] Comment: HepB Surface Ab Quant: Unvaccinated: < 8.5 IU/L Vaccinated: >= 11.5 IU/L HepB Surface Ab Negative [facility] Comment: Expected Results: Vaccinated: Positive Unvaccinated: Negative Patient is presumed to be not vaccinated or immune to HBV infection. Blood 01/23/2023 9:59 AM EST 01/23/2023 10:08 AM EST Narrative Resulting Agency Comment Spec In Lab Linda Alejo Neel IMMUNOLOGY ORDERAB LES Performing Organization Address [facility] de Phone Number [facility] [place] [address] * Hepatitis B Core Antibody, Total (01/23/2023 9:59 AM EST) Hep B Core Ab Negative Negative [facility] Blood 01/23/2023 9:59 AM EST 01/23/2023 10:08 AM EST Narrative Resulting Agency Comment Spec In Lab Linda Shaikh DO CHEMISTRY ORDERABL ES Performing Organization Address City/[facility]/ZIP Co de Phone Number [facility] [place] [address] * Hepatitis C Antibody (01/23/2023 9:59 AM EST) Hepatitis C Ab Negative Negative [facility] Blood 01/23/2023 9:59 AM EST 01/23/2023 10:08 AM EST Narrative Resulting Agency Comment Spec In Lab Linda Shaikh DO IMMUNOLOGY ORDERAB LES Performing Organization Address [facility] Co de Phone Number [facility] [place] [address] documented in this encounter Visit Diagnoses Diagnosis GCA (giant cell arteritis) Giant cell arteritis Immunosuppressed status Unspecified disorder of immune mechanism documented in this encounter Care Teams Live Source Operator Relationship Specialty Start Date End Date Yesy Nagy APRN [address] [place] [address] PCP - General Geriatric Medicine 08/02/22 documented as of this encounter
--- OUTSIDE RECORDS SUMMARY | 2024-06-19 02:37 | XMS_ITS | Encounter Summary ---
Author Organization [facility] [place] [address] Care Team Providers Care Ice Cream Mixer Name Role Phone Ozzie Davis Primary Care Provider [phone] Reason for Referral * Consultation (Routine) - Closed Specialty Diagnoses / Procedures Referred By Contac t Referred To Contact Rheumatology Diagnoses Numbness Beau Cassidy MD [facility] [place] [address] [facility] Rheumatology [address] [place] [address] Referral ID Status Reason Start Date Expiration Date V isits Requested Visits Authorized [id number] Closed Consult, Test & Treat 06/14/2016 06/14/2017 1 1 Encounter Details Date Type Department Care Team (Late st Contact Info) Description 06/14/2016 [place] [address] Beau Cassidy MD [facility] [place] [address] Numbness Social History Tobacco Use Types Packs/Day Years [...] Schedule Referral to Rheumatology Outpatient Referral Routine Numbness Ordered: 06/14/2016 documented as of this encounter Visit Diagnoses Diagnosis Numbness Disturbance of skin sensation documented in this encounter Care Teams Ice Cream Mixer Relationship Specialty Start Date End Date Ozzie Davis PA [address] [place] [address] PCP - General General Internal Medicine 04/12/1605/30 documented as of this encounter
--- OUTSIDE RECORDS SUMMARY | 2024-06-19 02:37 | XMS_ITS | Encounter Summary ---
Author Organization [facility] Address [facility] [place] [address] Care Team Providers Care Plate Mill Mill Hand Name Role Phone Ozzie Davis Primary Care Provider [phone] Reason for Visit * Reason Onset Date Comments Other 06/14/2016 Encounter Details Date Type Department Care Team (Late st Contact Info) Description 06/14/2016 Telephone [place] [address] Pedro Barreto MD [facility] [place] [address] Other Social History Tobacco Use Types Packs/Day [...] encounter Miscellaneous Notes * Telephone Encounter - Beau Aguilar MD - 06/15/2016 12:58 PM EDT Called and discussed with patient. Will follow up with rheumatology regarding abnormal Scl70 lab value. BEAU AGUILAR MD PGY 3 Neurology * Telephone Encounter - Desiree Cowan RN - 06/14/2016 3:05 PM EDT Spoke with patient and he is requesting lab results that he had last week. Plan: Will forward to Dr. Barreto for review and comment. * Telephone Encounter - Desiree Cowan RN - 06/14/2016 2:55 PM EDT Call placed back to patient with message left asking for call back. * Telephone Encounter - Rowan Gill - 06/14/2016 2:13 PM EDT Patient called to get the results of the tests that he had last week. Please call and advise. documented in this encounter Plan of Treatment Not on file documented as of this encounter Visit Diagnoses Not on filedocumented in this encounter Care Teams Plate Mill Mill Hand Relationship Specialty Start Date End Date Ozzie Davis PA [address] [place] [address] PCP - General General Internal Medicine 04/12/1605/30 documented as of this encounter
--- OUTSIDE RECORDS SUMMARY | 2024-06-19 02:37 | XMS_ITS | Encounter Summary ---
Author Organization [facility] Address [facility] [place] [address] Care Team Providers Care Help Desk Coordinator Name Role Phone Ozzie Davis Primary Care Provider [phone] Encounter Details Date Type Department Care Team (Late st Contact Info) Description 06/14/2016 External [place] [phone] Pedro Barreto MD [facility] [place] [address] Social History Tobacco Use Types Packs/Day Years [...] Procedure Name Priority Date/Time Associated Diagnosis Comments EMG SCAN Routine 06/09/2016 documented in this encounter Results * Scan Doc: EMG (06/09/2016) Pedro Barreto MD MEDIA MGR SCAN EXT O RDR/RSLT documented in this encounter Visit Diagnoses Not on filedocumented in this encounter Care Teams Help Desk Coordinator Relationship Specialty Start Date End Date Ozzie Davis PA [address] [place] [address] PCP - General General Internal Medicine 04/12/1605/30 documented as of this encounter
--- OUTSIDE RECORDS SUMMARY | 2024-06-19 02:37 | XMS_ITS | Encounter Summary ---
Author Organization [facility] Address [facility] [place] [address] Care Team Providers Care On Site Property Manager Name Role Phone Yesy Nagy APRN Primary Care Provider [phone] Encounter Details Date Type Department Care Team (Late st Contact Info) Description 09/20/2022 Telephone [place] [phone] Ananay Payan DO [facility] [place]AT[place]Y [place] [address] Social History Tobacco Use Types Packs/Day Years [...] Telephone Encounter - Ananya Payan DO - 09/20/2022 12:51 PM EDT Pt concerned about side affect on Atemra. there is nothing I could do to convince him to take thismedication - discussed side effects to prednisone as well- osteoporosis, HTN, kidney injury, cataracts, jaky gain, insomnia, DM ect. Also concerned that he may flare as he tapers down and it will be harder to come off prednisone. Ptunderstands that risk, still does not want atemra at this time - will follow up as scheduled next month. documented in this encounter Plan of Treatment Not on file documented as of this encounter Goals Goal Patient Goal Type Associated Problems Recent Progress Patient-Stated? Author DH Self-Management Patient Facing Action Plan No Danica Taylor, [facility] Note: Judson Robe Patel Jr. Is hoping to decrease his prednisone dosage and keep pain levels at a minimum. He is hoping that Actemra will be able to keep him walking since before prednisone he had a hard time standing up and walking around. documented as of this encounter Visit Diagnoses Not on filedocumented in this encounter Care Teams On Site Property Manager Relationship Specialty Start Date End Date Yesy Nagy APRN [address] [place] [address] PCP - General Geriatric Medicine 08/02/22 documented as of this encounter
--- OUTSIDE RECORDS SUMMARY | 2024-06-19 02:37 | XMS_ITS | Encounter Summary ---
Author Organization [facility] Address [facility] [address] [place] [address] Care Team Providers Care Sponge Fisherman Name Role Phone Red Peoples MD Primary Care Provider Lindsay lopez Encounter Details Date Type Department Care Team (Latest Contact Info) Description 04/11/2016 - 04/11/2016 11:59 PM EDT Hospital Encounter [place] [address] Pedro Barreto MD [facility] [place] [address] Pain Discharge Disposition: Home Social History Tobacco Use Types Packs/Day Years Used Date Smoking Tobacco: Never Assessed Sex and Gender Information Value Date Recorded Sex Assigned at Not on file Gender Identity Not on file Sexual Orientation Not on file documented as of this encounter Medications at Time of Discharge Medication Sig Dispensed Refills Start Date End Date clonazePAM (KLONOPIN) 0.5 mg Tablet Take 0.5 mg by mouth as needed. 02/23/2016 06/21/2016 documented as of this encounter Plan of Treatment Not on file documented as of this encounter Procedures Procedure Name Priority Date/Time Associated Diagnosis Comments FILM LIBRARY STORAGE ONLY MR HEAD Routine 04/11/2016 12:00 AM EDT Pain documented in this encounter Results * Film Library- Storage only MR Head (04/11/2016 12:00 AM EDT) Narrative GUIDO - 05/30/2016 8:58 AM EDT This exam is for storage only and is auto-finalizing. Pedro Barreto MD IMG FILM LIBRARY ORD ERABLES [place], [place] documented in this encounter Visit Diagnoses Diagnosis Pain Generalized pain documented in this encounter Care Teams Sponge Fisherman Relationship Specialty Start Date End Date Red Peoples MD [place], [place] PCP - General 10/18/10 04/11/16 documented as of this encounter
--- OUTSIDE RECORDS SUMMARY | 2024-06-19 02:37 | XMS_ITS | Encounter Summary ---
Author Organization [facility] [place] [address] Care Team Providers Care Wildlife Conservationist Name Role Phone Yesy Nagy APRN Primary Care Provider [phone] Reason for Visit * Reason Onset Date Comments Medication Problem 09/19/2022 Encounter Details Date Type Department Care Team (Late st Contact Info) Description 09/19/2022 Telephone [place] [address] Dayna Paez RN Medication Problem Social History Tobacco Use Types Packs/Day Years [...] Telephone Encounter - Dayna Paez RN - 09/20/2022 10:03 AM EDT ?Ananya Payan, DO sent to Dayna Paez RN Caller: Unspecified (Yesterday, ??1:37 PM) Patient called yesterday and ??refused Atrema due to concern of side effects. LM to discuss with him further about his concerns. Please let me know if he calls back, I will be happy to discuss medication with him further. ?? * Telephone Encounter - Dayna Paez RN - 09/19/2022 4:20 PM EDT Judson calls to discuss the Actemra. RTC and Judson states he is not going to take the Actemra and wants to send it back. When asked why, he states he was not aware of the side effects. Asked if someone discussed side effects with him prior to ordering and he states yes, that Dr. Payan did. States there were more than she discussed when he received the medication and states I can think of better ways to . Judson wants to know if he can send it back, since he has kept it cold? I advised to keep cold and Iwill let his provider and Specialty Pharmacy know of his decision. Judson states he will not change his mind. Ananya Payan DO sent to Dayna Paez RN Caller: Unspecified (Today, ??1:37 PM) Okay thanks ?? Danica Taylor RPH sent to Dayna Paez RN; Ananya Payan DO Caller: Unspecified (Yesterday, ??1:37 PM) Thank you for the update. I reviewed everything with him as well in detail. He can't return the medication unfortunately. Once the patient receives the medication, we cannot take it back (against thelaw). I can d/c him with our services so we don't reach out any futher . RTC to Judson and he will contact [facility] in [place] and donate the medication next time he is down this way. Will keep refrigerated. documented in this encounter Plan of Treatment Not on file documented as of this encounter Goals Goal Patient Goal Type Associated Problems Recent Progress Patient-Stated? Author DH Self-Management Patient Facing Action Plan No Danica Taylor [facility] Note: Judson Patel Jr. Is hoping to decrease his prednisone dosage and keep pain levels at a minimum. He is hoping that Actemra will be able to keep him walking since before prednisone he had a hard time standing up and walking around. documented as of this encounter Visit Diagnoses Not on filedocumented in this encounter Care Teams Wildlife Conservationist Relationship Specialty Start Date End Date Yesy Nagy APRN [address] [place] [address] PCP - General Geriatric Medicine 08/02/22 documented as of this encounter
--- OUTSIDE RECORDS SUMMARY | 2024-06-19 02:37 | XMS_ITS | Encounter Summary ---
Author Organization [facility] [place] [address] Care Team Providers Care Senior Ui Web Developer Name Role Phone Yesy Nagy APRN Primary Care Provider Encounter Details Date Type Department Care Team (Late st Contact Info) Description 08/30/2022 Refill [place] [phone] Ananya Payan DO [facility] [place] [address] Social History Tobacco Use Types Packs/Day Years [...] Telephone Encounter - Ananya Payan DO - 08/30/2022 9:01 AM EDT Pt with GCA documented in this encounter Plan of Treatment Not on file documented as of this encounter Visit Diagnoses Not on filedocumented in this encounter Care Teams Senior Ui Web Developer Relationship Specialty Start Date End Date Yesy Nagy APRN [address] [place] [address] PCP - General Geriatric Medicine 08/02/22 documented as of this encounter
--- OUTSIDE RECORDS SUMMARY | 2024-06-19 02:37 | XMS_ITS | Encounter Summary ---
Author Organization [facility] [place] [address] Care Team Providers Care Health Officer Name Role Phone Yesy Nagy APRN Primary Care Provider Encounter Details Date Type Department Care Team (Late st Contact Info) Description 08/31/2022 Tele[place] [address] Landy Monson RN Social History [...] Telephone Encounter - Landy Monson RN - 08/31/2022 4:46 PM EDT Patient called,left message on nurse line requesting a call back from his Provider Dr Schuyler MATHUR([facility]). When returned call patient asked to speak to MD please. Message sent to Provider to review. documented in this encounter Plan of Treatment Not on file documented as of this encounter Visit Diagnoses Not on filedocumented in this encounter Care Teams Health Officer Relationship Specialty Start Date End Date Yesy Nagy APRN [address] [place] [address] PCP - General Geriatric Medicine 08/02/22 documented as of this encounter
--- OUTSIDE RECORDS SUMMARY | 2024-06-19 02:37 | XMS_ITS | Encounter Summary ---
Author Organization Formerly [facility], [facility] Address [facility] [place] [address] Care Team Providers Care Billing Typist Name Role Phone Yesy Nagy APRN Primary Care Provider [phone] Encounter Details Date Type Department Care Team (Late st Contact Info) Description 09/14/2022 10:15 AM EDT Office [place] [id number] Ananya Payan, [facility] [address] GCA (giant cell arteritis); Immunosuppressed status Social [...] Sign Reading Time Taken Comments Blood Pressure 149/63 09/14/2022 9:59 AM EDT Pulse 66 09/14/2022 9:59 AM EDT Temperature 36.2 ??C (97.1 ??F) 09/14/2022 9 :59 AM EDT Respiratory Rate - - Oxygen Saturation 100% 09/14/2022 9:5 9 AM EDT Inhaled Oxygen Concentration - - Weight 66 kg (145 lb 9.6 oz) 09/14/2022 9:59 AM EDT Height 170.2 cm (5' 7) 09/14/2022 9:59 AM EDT patient reported Body Mass Index 22.8 09/14/2022 9:59 AM EDT documented in this encounter Patient Instructions * Patient Instructions* Ananya Payan DO - 09/14/2022 10:15 AM EDT Prednisone taper -40 mg X 1 week -30 mg X 1 week -25 mg X 1 week -20mg X 1week, -17.5 mg X 2 weeks, 15 mg X 2 weeks, 12.5 mg X 2 weeks, 10 mg X 2 weeks, 9 mg X 1 month, 8 mg X 1 month, 7 mg X 1 month, 6 mg X 1 month, 5 mg X 1 months, 4 mg X 1 months, 3 mg X 1 mouth, 2 mg X 1 month, 1mg X 1 month. - Asa 81 mg daily - Calcium 600mg BID - Vitamin D 1000IU daily - Bactrim DS 3X week, PJP PPX when on Prednisone >20mg -Tocilizumab 162 mg weekly Imaging DEXA documented in this encounter Progress Notes * Ananya Payan DO - 09/14/2022 10:15 AM EDT Rheumatology Outpatient Follow Up Note PCP: MALACHI Vinson Jr. is a 71 y.o. male who we are seeing for the continuing management of GCA Rheum History: #GCA -Symptoms began in April 2022 with generalized body pain with intermittent headaches, unsteady gait.Initially evaluated on prednisone 25 mg and had sed rate of 60, CRP 15 August 2022. Given elevated inflammatory markers and headache concern of GCA. Unfortunately been on prednisone for over 2 months therefore a biopsy would likely be negative. -Started prednisone 60mg with improvement of symptoms and inflammatory markers -08/2022 started tocilizumab Interval History: Patient reports significant improvement in his symptoms. He denies any further headaches, no visionchanges. He reports improvement of his gait and equilibrium. He now feels comfortable and is able to drive without any difficulty. He also notes he has stopped drinking alcohol daily. No jaw claudication, joint pain joint swelling morning stiffness no hip or shoulder pain. -He notes he has not been taking Bactrim as recommended to prevent PJP. -Taking aspirin intermittently -Also notes he stopped Flomax due to concern of an interaction with prednisone -Patient reports he had labs on [facility] this week ROS (positives in bold): Gen: no fevers, no chills, no night sweats Pulm: no SOB CV: no CP Abd: no abd pain, no nausea, no vomiting, no diarrhea MSK: see HPI Meds and Allergies: Reviewed in eDH Physical exam: BP 149/63 (BP Location (NBP): Left arm, Patient Position: Sitting, BP Cuff Sizes: Adult (25-34 cm)) Pulse 66 Temp 36.2 ??C (97.1 ??F) (Temporal) Ht 170.2 cm (5' 7) Comment: patient reported Wt 66 kg (145 lb 9.6 oz) SpO2 100% BMI 22.80 kg/m?? Gen: well appearing, alert and oriented x 3, nad HEENT: NCAT, EOMI, srivastava facies, moist mucous membranes, no oral ulcers, normal sclerae Lymph: no cervical LAD Heart: regular rate, no murmurs, rubs or gallops Lungs: clear to auscultation b/l Abd: soft, +bs, NT/ND Skin: warm and dry, no rheumatologic rashes Nails: no nail pitting Joints: Shoulders: FROM, non-tender to palpation Elbows:FROM Wrists: FROM, no swelling, non-tender Hands: No synovitis, no MCP compression tenderness, full claw and fist Knees: FROM, no effusion, no tenderness Ankles: FROM, non-tender, 1+ pedal edema Labs/Studies: Reviewed. -Requested labs from [facility]. Assessment/Plan: 71-year-old male with past medical history of hypertension, BPH, peripheral neuropathy, alcohol usedisorder who presenting today for follow-up of GCA. -Patient with acute new onset joint aches and body pain responded to prednisone with development ofheadaches, disequilibrium with persistent elevated inflammatory markers while on 25 mg of prednisone, consistent with a diagnosis of GCA. He was started on 60 mg of prednisone with improvement in hissymptoms. Given he had been on pred[facility]one for 2 months [facility] I did recommend an MRI/MRA of his brain due to history of disequilibrium to evaluate for a posterior circulation stroke and to evaluate temporal arteries on CTA. Patient declined due to cost. Currently is on 50 mg of prednisone. We will obtain lab work from [facility] to ensure inflammatory markers are low and plan to continue taper prednisone. -Patient has not started tocilizumab yet, discussed risk and benefits of the medication. Pharmacistwill show patient how to use it today, patient is agreeable to starting medication. -Recommended obtaining DEXA to evaluate for bone density. Order has been placed at last visit Plan -Requested inflammatory markers from [facility] -prednisone taper -40 mg X 1 week, 30 mg X 1 week, 25 mg X 1 week, 20mg X 1week, 17.5 mg X 2 weeks, 15 mg X 2 weeks, 12.5 mg X 2 weeks, 10 mg X 2 weeks, 9 mg X 1 month, 8 mg X 1 month, 7 mg X 1 month, 6 mg X 1 month, 5 mg X 1 months, 4 mg X 1 months, 3 mg X 1 mouth, 2 mg X 1 month, 1mg X 1 month. - Asa 81 mg daily - Calcium 600mg BID - Vitamin D 1000IU daily - Bactrim DS 3X week, PJP PPX when on Prednisone >20mg -Tocilizumab 162 mg weekly -Advised continued alcohol cessation Patient was discussed with Dr. Neel Payan DO Rheumatology Fellow Pager: [phone] * Linda Shaikh DO - 09/14/2022 10:15 AM EDT ATTENDING ADDENDUM The patient's history was reviewed, and I interviewed and examined the patient with I agree with her summary, findings, and plan. documented in this encounter Plan of Treatment Not on file documented as of this encounter Goals Goal Patient Goal Type Associated Problems Recent Progress Patient-Stated? Author DH Self-Management Patient Facing Action Plan No Danica Taylor, [facility] Note: Judson Patel Jr. Is [...] mechanism documented in this encounter Care Teams Billing Typist Relationship Specialty Start Date End Date Yesy Nagy APRN [address] [place] [address] PCP - General Geriatric Medicine 08/02/22 documented as of this encounter
[2024-06-19 09:22] LABS: Abs Immature Grans 0.06 10^3/uL (0.0-0.06); Absolute Basophil Count 0.03 10^3/uL (0.0-0.2); Absolute Lymphocyte Count 3.46 10^3/uL (1.2-3.4); Absolute Monocyte Count 0.81 10^3/uL (0.1-0.8); Basophils % 0.3 %; Eosinophils % 0.9 %; HCT 39.2 % (40.0-50.0); HGB 13.5 g/dL (13.5-17.5); Immature Grans % 0.5 %; Lymphocytes % 29.9 %; MCH 31.4 pg (27.0-33.0); MCHC 34.4 % (32.0-36.0); MCV 91 fL (80-95); MPV 9.6 fL (8.0-11.0); Neutrophils % 61.4 %; Platelet Count 229 10^3/uL (130-400); RDW 13.2 % (11.8-14.1); RDW-SD 43.4 fL; WBC 11.57 10^3/uL (4.4-10.8)
[2024-06-19 09:25] LABS: ESR 25 mm/hr (0-20)
[2024-06-19 09:59] LABS: ALT 19 U/L (16-63); AST 13 U/L (15-37); Albumin 3.4 g/dL (3.4-5.0); Alkaline Phosphatase 66 U/L (46-116); Anion Gap 9.9 mmol/L (3-11); BUN 11 mg/dL (7-18); Bilirubin, Total 0.63 mg/dL (0.2-1.0); CO2 27.1 mmol/L (21.0-32.0); CREATININE 1.3 mg/dL (0.70-1.30); Calcium 9.6 mg/dL (8.5-10.1); Calculated LDL 151 mg/dL (<100); Chloride 103 mmol/L (98-107); Cholesterol 240 mg/dL (<200); Estimated GFR 57.29 (mL/min/1.73m2); Glucose 122 mg/dL (74-106); HDL Cholesterol 65 mg/dL (40-60); Potassium 3.6 mmol/L (3.5-5.1); Sodium 140 mmol/L (136-145); Total Protein 6.9 g/dL (6.4-8.2); Triglyceride 124 mg/dL (<150)
[2024-06-19 10:12] LABS: C-Reactive Protein 0.65 mg/dL (<or=0.5)
[2024-06-19 11:53] LABS: COMMENT (LAB VIEW ONLY) 111.94 mg/dL
[2024-06-19 20:35] LABS: PSA, Screening 3.3 ng/mL (<=6.5)
== END 2024-06-19 02:26 | disposition home or self-care (01) ==
LOC: LBO 02:30
PROVIDERS: PCP Nurse Practitioner Adult Health; Visit Provider Nurse Practitioner Adult Health
DX: I10 Essential (primary) hypertension (principal); N40.0 Benign prostatic hyperplasia without lower urinary tract symptoms; Z79.52 Long term (current) use of systemic steroids; M31.6 Other giant cell arteritis; E09.9 Drug or chemical induced diabetes mellitus without complications; T38.0X5D Adverse effect of glucocorticoids and synthetic analogues, subsequent encounter; Z80.42 Family history of malignant neoplasm of prostate; D64.9 Anemia, unspecified; Z12.5 Encounter for screening for malignant neoplasm of prostate
CPT/HCPCS: 36415; 80053; 80061; 84153; 85652; 82043; 82570; 85025; 86140

== ENCOUNTER 2024-08-29 13:07 | Emergency (ER) | payer MEDICARE, MEDICAID, SELFPAY ==
[2024-08-29] VITALS (35 sets, daily range): BP systolic 98–157; BP diastolic 44–95; PULSE 63–87; RESP 12–41; O2SAT 93–96
--- NOTE | 2024-08-29 13:00 | RT.EKG_ITS ---
APPROVED REPORT Exam: Resting ECG Reason for Exam: ams Patient Location: E HR:74 bpm ECG Measurements Heart Rate 74 AXIS HI 151 P 51 QRSd 125 QRS -76 QT 398 T 12 QTc 443 Conclusion Sinus rhythm...normal P axis, V-rate 60- 99 RBBB and LAFB...QRSd >120mS, axis(-40,240) Normal sinus rhythm at a rate of 74 with interventricular conduction delay and right bundle branch bl ock with left axis deviation???/bifascicular block. HI within normal limits. QTc within normal limi ts. Compared to prior dated 3 years ago no acute changes. No ST segment abnormalities. T wave flat tening in V2.
--- NOTE | 2024-08-29 14:00 | DI.RAD_ITS ---
Exam(s) XR CHEST 2V PA LATERAL EXAM: XR CHEST 2V PA LATERAL CLINICAL HISTORY: near syncope TECHNIQUE: 2D digital imaging was performed. Two views. COMPARISON: CR XR PORTABLE CHEST AP from 09/10/2023 FINDINGS: HEART: Normal size. Aorta: Not dilated. PULMONARY VASCULATURE: Normal. MEDIASTINUM: Unremarkable. LUNGS: Clear. PLEURAL SPACE: No pleural effusion or pneumothorax. BONE:Unremarkable for age. SOFT TISSUES: Metallic densities again noted in the anterior neck. IMPRESSION: No acute abnormality. DATA REPOSITORY: RADIATION DOSE DELIVERED:
--- NOTE | 2024-08-29 14:00 | DI.CT_ITS ---
Exam(s) CT HEAD WO EXAM: CT HEAD WO CLINICAL HISTORY: dizziness, near syncope. TECHNIQUE: Imaging Protocol: Axial computed tomography images with coronal and sagittal reformatted images were created and reviewed COMPARISON: CT HEAD WITHOUT CONTRAST from 04/30/2017 FINDINGS: Ventricles and Extra axial spaces: Normal in size and morphology for the patient's age. Hemorrhage: None. Cerebral parenchyma: Areas of decreased attenuation in the white matter consistent with chronic micro vascular ischemic disease. No acute mass effect is present. No acute territorial infarct is seen. Midline shift: None. Brainstem/Cerebellum: Normal. Calvarium: Normal. Visualized Paranasal sinuses/Mastoids: There is opacification of a few ethmoid air cells. The remain ing visualized paranasal sinuses are clear. Postsurgical changes are again seen in the right mastoid air cells. Soft Tissues: Unremarkable. IMPRESSION: No acute intracranial process. RADIATION DOSE DELIVERED: 913.57mGy.cm Total DLP DATA REPOSITORY: All CT scans at this facility are submitted to the National Radiology Data Registry (NRDR) Dose Index Registry (DIR) with the [employer] (A[employer]). RADIATION OPTIMIZATION: All CT scans at this facility use at least one of these dose optimization te chniques: automated exposure control; mA and/or kV adjustment per patient size (includes targeted exa ms where dose is matched to clinical indication); or iterative reconstruction.
--- NOTE | 2024-08-29 14:04 | W.ED.GENAD ---
Discharge Plan Disposition Patient Disposition: Home Condition: Stable Discharge Details Clinical Impression: Dizziness Primary Care Provider: Yesy Nagy ED Provider: Lolly Barrios Home Meds and New Rx's Prescriptions: Continued prednisone 5 mg tablet 5 mg PO DAILY Qty: 90 1RF amlodipine 2.5 mg tablet 2.5 mg PO HS MDD 5mg/24h Qty: 180 3RF Rx Instructions: Dose reduction 11/2023, but may increase to 5mg daily if BP not at goal <140/90 vitamin B complex [B Complex-Vitamin B12] Tablet 1 tab PO DAILY tamsulosin [Flomax] 0.4 mg capsule 0.8 mg PO DAILY Qty: 180 3RF Rx Instructions: Enlarged prostate; dose increase 03/29/2023 (DME) blood-glucose meter Kit See Rx Instructions .Route Qty: 1 0RF Rx Instructions: ONE TOUCH METER As directed to check blood glucose daily. No insulin. DX:E11.9 to maintain Hba1c <7% prednisone 2.5 mg tablet 2.5 mg PO DAILY aspirin 325 mg tablet 162.5 - 325 mg PO DAILY PRN calcium carbonate-vitamin D3 [Caltrate with Vitamin D3] 600 mg-20 mcg (800 unit) tablet 2 tab PO DAILY Qty: 180 3RF Rx Instructions: For bone health while on prednisone rosuvastatin 5 mg tablet 5 mg PO DAILY Qty: 90 3RF Rx Instructions: For cholesterol, steroid-induced diabetes (DME) blood sugar diagnostic Strip See Rx Instructions .Route Qty: 100 3RF Rx Instructions: One touch test strips to check blood glucose daily. no insulin. DX:E11.9 to maintain Hba1c <7% (DME) lancets Misc See Rx Instructions .Route Qty: 100 3RF Rx Instructions: E11.9 for daily monitoring for A1C <=7% One touch lancets methotrexate sodium 10 mg tablet 10 mg PO QWEEK folic acid PO DAILY Discharge Instructions Instructions: Dizziness, Adult ED Additional Instructions: At this time your labs are improving. Please increase oral fluids. Follow up with primary care provider in 3-5 days. Return to ED sooner if any worsening or concerns. No evidence of urinary tract infection, no evidence of heart attack at this time. Referrals: Yesy Nagy, BANKING ASSISTANT [Primary Care Provider] - 3 days Discharge Data Discharge Date/Time-TO BE ENTERED AT DEPARTURE: 08/29/24 17:47 HPI <DARLINE Michel - Last Filed: 08/29/24 15:30> General Date/Time Provider Initiated Documentation: 08/29/24 13:11. HPI Narrative: 73 year-old male presents to ED today by POV/ambulating with a chief complaint of dizziness, near syncope with onset around 1235 while walking to the bus. Quality described as acute on chronic intermittent dizziness, states he has low blood pressure issues sometimes, no radiation to chest pain, shortness of breath, diaphoresis, nausea, palpitations, fever, cough, vomiting, abdominal pain, visual changes, slurred speech, numbness, weakness. Severity is described as mild, has no complaint currently. Palliating factors include nothing specific. Provoking factors include nothing specific. Patient not anticoagulated. Related Data Home Medications ?Medication ?Instructions ?Recorded ?Confirmed vitamin B complex (B 1 tab PO DAILY 05/06/21 08/29/24 Complex-Vitamin B12 tablet) amlodipine 2.5 mg tablet 2.5 mg PO HS #180 tabs 12/17/23 08/29/24 prednisone 5 mg tablet 5 mg PO DAILY #90 tabs 12/17/23 08/29/24 blood-glucose meter #1 ea 05/19/24 08/29/24 tamsulosin 0.4 mg capsule (Flomax) 0.8 mg (2 x 0.4 mg) PO DAILY #180 05/19/24 08/29/24 tab-caps blood sugar diagnostic #100 ea 06/09/24 08/29/24 lancets #100 ea 06/09/24 08/29/24 aspirin 325 mg tablet 162.5 - 325 mg PO DAILY PRN 06/26/24 08/29/24 calcium carbonate 600 mg-vitamin 2 tab PO DAILY #180 tabs 06/26/24 08/29/24 D3 20 mcg (800 unit) tablet (Caltrate with Vitamin D3) prednisone 2.5 mg tablet 2.5 mg PO DAILY 06/26/24 08/29/24 rosuvastatin 5 mg tablet 5 mg PO DAILY #90 tabs 06/26/24 08/29/24 folic acid PO DAILY 07/17/24 07/17/24 methotrexate sodium 10 mg tablet 10 mg PO QWEEK 07/17/24 08/29/24 Previous Rx's ?Medication ?Instructions ?Recorded amlodipine 2.5 mg tablet 2.5 mg PO HS #180 tabs 12/17/23 prednisone 5 mg tablet 5 mg PO DAILY #90 tabs 12/17/23 blood-glucose meter #1 ea 05/19/24 tamsulosin 0.4 mg capsule (Flomax) 0.8 mg (2 x 0.4 mg) PO DAILY #180 05/19/24 tab-caps blood sugar diagnostic #100 ea 06/09/24 lancets #100 ea 06/09/24 calcium carbonate 600 mg-vitamin 2 tab PO DAILY #180 tabs 06/26/24 D3 20 mcg (800 unit) tablet (Caltrate with Vitamin D3) rosuvastatin 5 mg tablet 5 mg PO DAILY #90 tabs 06/26/24 Allergies Allergy/AdvReac Type Severity Reaction Status Date / Time amoxicillin (From Augmentin) AdvReac Intermediate vomiting, Verified 08/29/24 13:14 GI Upset atenolol AdvReac Intermediate off Verified 08/29/24 13:14 balance, dizzy clavulanic acid (From AdvReac Intermediate vomiting, Verified 08/29/24 13:14 Augmentin) GI Upset General Stated Complaint: [id number] ASIM: 3 Review of Systems <DARLINE Michel - Last Filed: 08/29/24 15:30> All systems reviewed & are unremarkable except as noted in HPI and below Exam <DARLINE Michel - Last Filed: 08/29/24 15:30> Narrative Exam Narrative: GENERAL APPEARANCE: Well-nourished, non-toxic, awake and alert, atraumatic, no acute distress. SKIN: Warm, pink, dry, intact, without rashes/lesions/ulcerations. HEAD: Normocephalic, atraumatic, normal hair distribution for gender/age. EYES: Normal conjunctiva, no exudates on lids/lashes. ENT: Nares patent, no circumoral cyanosis, no facial swelling NECK: Supple, trachea midline, painless cervical ROM. LUNGS/CHEST: Lungs CTA bilaterally- no rhonchi/rales/wheezes diffusely, non-labored respirations, normal A/P diameter, symmetrical expansion, no chest wall deformity HEART (CV/PV): Regular rate and rhythm without murmur, no peripheral edema, no JVD. ABDOMEN: Soft, non-distended, no guarding. MSK: Normal ROM, no swelling/deformity to bilateral UEs or LEs, moving all extremities without weakness, no cyanosis, spine midline without tenderness, normal curvature. NEURO: Mental Status AAOx4 - alert to person, place, time, events No facial droop, no forehead involvement. Motor: No focal weakness - strength 5/5 in bilateral UEs and LEs, proximal and distal, symmetric. Sensory: sensation intact to light touch globally. Gait normal: patient ambulated without ataxia into ED room. PSYCH: euthymic, cooperative, pleasant, appropriate speech Course <DARLINE Michel - Last Filed: 08/29/24 15:30> Vital Signs Vital signs: Vital Signs Pulse 87 08/29/24 13:11 Blood Pressure 104/71 08/29/24 13:11 Pulse Oximetry 93 08/29/24 13:11 Pulse 87 08/29/24 13:11 Respiratory Effort Normal, Non-Labored 08/29/24 13:15 Blood Pressure 104/71 08/29/24 13:11 Blood Pressure Position Sitting 08/29/24 13:11 Pulse Oximetry 93 08/29/24 13:11 Oxygen Delivery Method Room Air 08/29/24 13:11 Oxygen Flow Rate 0 08/29/24 13:11 Medical Decision Making <DARLINE Michel - Last Filed: 08/29/24 15:30> This dictation utilizes [id number] dictation software and may contain unedited grammatical errors. 73 year-old male presents to ED today by POV/ambulating with a chief complaint of dizziness, near syncope with onset around 1235 while walking to the bus. Quality described as acute on chronic intermittent dizziness, states he has low blood pressure issues sometimes, no radiation to chest pain, shortness of breath, diaphoresis, nausea, palpitations, fever, cough, vomiting, abdominal pain, visual changes, slurred speech, numbness, weakness. Severity is described as mild, has no complaint currently. Palliating factors include nothing specific. Provoking factors include nothing specific. Patients' medical history: Anemia, lightheadedness, GERD, alcoholic related peripheral neuropathy, abnormal gait, giant cell arteritis, immune suppressed status with long-term prednisone. Family and social history: Noncontributory, gets regular exercise, denies intoxication. Pertinent exam findings / vital signs include [ ]. Differential / pathologies of concern include [ ]. Diagnostic studies of: -CBC, CMP, serial troponins, lipase, magnesium, TSH, BNP, CT head without contrast, XR chest, EKG. -CBC shows leukocytosis at 11.83, mild chronic anemia -Lactate 2.3 -Acutely elevated serum creatinine of 1.6 with elevated BUN indicating dehydration may be playing a factor here, glucose 275, normal magnesium, normal potassium -Initial troponin negative 9ng/dL -Lipase normal -TSH WNL -EKG shows sinus rhythm at 74 bpm with left axis deviation, right bundle branch block, no ST changes, inverted T waves in V1 -CT head neg -XR Chest neg -UA pending Interventions of: -Encourage p.o. fluids. ED Course/Assessment/Plan: 73-year-old male with near syncope presents with mildly elevated ELDA and elevated BUN indicating possible dehydration as source of today's dizziness, he denies any cardiac symptoms leading up to the dizziness and he was walking to the bus stop. He does have increased lactate and elevated leukocytes and an immune suppressed status, he is signed out to oncoming provider Piedad Flores with repeat troponins pending as well as pending urinalysis and XR chest for possible pneumonia evaluation, unknown source of illness. Findings not consistent with CVA, ACS, syncope, trauma, LOC. Disposition of Dizziness of Unknown Etiology. Patient verbalized understanding of the plan and return to ED criteria and engaged in shared decision making. Medical Records Medical records reviewed: Yes I reviewed the patient's medical records. Imaging Data Radiologic Study: Attestation: I personally reviewed and interpreted this imaging study as follows: Imaging: X-Ray Radiologist's impression: EXAM: XR CHEST 2V PA LATERAL CLINICAL HISTORY: near syncope TECHNIQUE: 2D digital imaging was performed. Two views. COMPARISON: CR XR PORTABLE CHEST AP from 09/10/2023 FINDINGS: HEART: Normal size. Aorta: Not dilated. PULMONARY VASCULATURE: Normal. MEDIASTINUM: Unremarkable. LUNGS: Clear. PLEURAL SPACE: No pleural effusion or pneumothorax. BONE:Unremarkable for age. SOFT TISSUES: Metallic densities again noted in the anterior neck. IMPRESSION: No acute abnormality. Radiologic Study #2: Attestation: I personally reviewed and interpreted this imaging study as follows: Imaging: CT Scan Radiologist's impression: EXAM: CT HEAD WO CLINICAL HISTORY: dizziness, near syncope. TECHNIQUE: Imaging Protocol: Axial computed tomography images with coronal and sagittal reformatted images were created and reviewed COMPARISON: CT HEAD WITHOUT CONTRAST from 04/30/2017 FINDINGS: Ventricles and Extra axial spaces: Normal in size and morphology for the patient's age. Hemorrhage: None. Cerebral parenchyma: Areas of decreased attenuation in the white matter consistent with chronic microvascular ischemic disease. No acute mass effect is present. No acute territorial infarct is seen. Midline shift: None. Brainstem/Cerebellum: Normal. Calvarium: Normal. Visualized Paranasal sinuses/Mastoids: There is opacification of a few ethmoid air cells. The remaining visualized paranasal sinuses are clear. Postsurgical changes are again seen in the right mastoid air cells. Soft Tissues: Unremarkable. IMPRESSION: No acute intracranial process. Lab Data Lab results reviewed: Yes I reviewed the patient's lab results. Labs: 08/29/24 14:26 Blood Blood Culture - Pending 08/29/24 14:26 Blood Blood Culture - Pending Laboratory Tests Range/Units 08/29/24 08/29/24 13:38 14:14 WBC (4.4-10.8) 10^3/uL 11.83 H RBC (4.36-5.78) 10^6/uL 4.04 L Hgb (13.5-17.5) g/dL 12.6 L Hct (40.0-50.0) % 37.9 L MCV (80-95) fL 94 MCH (27.0-33.0) pg 31.2 MCHC (32.0-36.0) % 33.2 RDW (11.8-14.1) % 13.2 Plt Count (130-400) 10^3/uL 258 MPV (8.0-11.0) fL 9.7 Immature Gran % % 0.7 Neutrophils % % 82.5 Lymphocytes % % 12.6 Monocytes % % 3.8 Eosinophils % % 0.2 Basophils % % 0.2 Nucleated RBC % (0.0-0.3) % 0.0 Absolute Neutrophils (1.2-6.7) 10^3/uL 9.76 H Absolute Lymphocytes (1.2-3.4) 10^3/uL 1.49 Absolute Monocytes (0.1-0.8) 10^3/uL 0.45 Absolute Eosinophils (0.0-0.7) 10^3/uL 0.02 Absolute Basophils (0.0-0.2) 10^3/uL 0.02 VBG Lactate (0.6-1.4) mmol/L 2.3 H* Sodium (136-145) mmol/L 141 Potassium (3.5-5.1) mmol/L 4.6 Chloride (98-107) mmol/L 103 Carbon Dioxide (21.0-32.0) mmol/L 27.5 Anion Gap (3-11) mmol/L 10.5 BUN (7-18) mg/dL 19 H Creatinine (0.70-1.30) mg/dL 1.6 H Est GFR (CKD-EPI 2020) (mL/min/1.73m2) 44.65 Glucose (74-106) mg/dL 275 H Calcium (8.5-10.1) mg/dL 9.2 Magnesium (1.8-2.4) mg/dL 2.1 Total Bilirubin (0.2-1.0) mg/dL 0.39 AST (15-37) U/L 11 L ALT (16-63) U/L 19 Alkaline Phosphatase (46-116) U/L 63 Troponin I (<or=76) ng/L 9 NT-Pro-B Natriuret Pep (<300) pg/mL 85 Total Protein (6.4-8.2) g/dL 6.9 Albumin (3.4-5.0) g/dL 3.2 L Lipase (16-77) U/L 62 TSH (0.36-3.74) uIU/mL 2.51 Quality:SDHI Health Related Social Needs: No Data to Display <Lolly Barrios NP - Last Filed: 08/29/24 19:22> Medical Records Medical records narrative: 1550: SJ: Care assumed from provider (DARLINE Webber) Please see their initial HPI, PE, and documentation. Discussed patient details and case and pending workup and disposition. Patient is hemodynamically stable, and alert and oriented. At the time of signout awaiting urinalysis repeat lactate and repeat troponin. In short patient is a 73-year-old male who presents with chief complaint of dizziness with onset around 1230 while waiting for the bus. Currently most lead negative workup except for a lactate 2.3 white blood cell count 11.83, slightly elevated BUN/creatinine at [address] head within normal limits. 1648: Repeat lactate improved at 1.9. Awaiting UA. Urinalysis resulted, negative for leukocytes nitrites culture is not indicated at this time. Positive for 250 glucose, repeat troponin is downtrending and is 11. Will discharge patient home with follow-up with primary care and discussed strict return instructions. Discussed patient results with him he verbalized understanding. He feels better upon reevaluation. Discussed tricked return instructions. This text was generated using SUPRation system, please disregard any oddities of phrase or misspellings. PFSH <DARLINE Michel - Last Filed: 08/29/24 15:30> All Active Problems (Updated 08/29/24 @ 17:35 by Lolly Barrios NP) Dizziness (Acute) Cataracts, both eyes (Acute) [place] 07/24/24 not visually significant Diverticulosis (Acute ~08/2023) Peripheral neuropathy (Chronic 05/07/18) EtOH related; [facility] [place] Neuro 2017 & 2022 Hypertension (Chronic 05/07/18) Goal 135-145 (lower & he feels poor)--didn't tolerate Lisinopril Benign prostatic hyperplasia (Chronic 05/13/18) RX Flomax History of alcohol abuse (Chronic 05/07/18) Family history of prostate cancer in father (Chronic) Also PGF Hyperlipidemia (Chronic ~07/2021) Recommend statin 07/2021; Puppet Master Reynaldo Read obtained lipoprotein a, elevated--> cardiology recommends consider statin 01/2022 Elevated lipoprotein A level (Acute ~12/2021) Declines statin Abnormal gait (Acute ~06/2022) Peripheral neuropathy + vestibular ([facility] [place] Neuro 01/2023) On prednisone therapy (Acute ~04/2022) GCA (giant cell arteritis) (Acute ~11/2022) [facility] [place] Endo--RX Actremra 01/2023; discontinued in favor of daily prednisone 7.5mg daily; switched to methotrexate 06/2024 Steroid-induced diabetes (Acute ~09/2022) Immunosuppressed status (Acute) LT prednisone for GCA Onychomycosis (Acute) Nail dystrophy (Acute) Medical History Anemia (~08/2022) Lightheadedness PMR (polymyalgia rheumatica) (~04/2022) COVID-19 (~08/2023) Impaired fasting glucose (05/07/18) Monitor annual A1Cs; +fam hx DMT2 Candidal paronychia Elevated serum creatinine Left scapholunate ligament tear Fracture of distal end of left radius (10/26/22) Immunization refused (~02/2022) 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 Seborrheic dermatitis of scalp Edema of lower extremity (05/07/18) Occurred x1, RX Furosemide and never reoccurred even off Furosemide Anxiety (05/07/18) GERD (gastroesophageal reflux disease) (05/07/18) Hepatomegaly (05/07/18) Resolved off EtOH Surgical History Tonsillectomy Appendectomy Family History Father , 73yo from metastatic prostate cancer Essential hypertension Heart disease Myocardial infarction Neoplasm Prostate Mother , early 70s diabetes complications Diabetes Paternal Grandfather , prostate cancer Neoplasm Prostate Social History Smoking/Tobacco Use Status: Former Tobacco Use Quit Date: 11/26/71 Smoking risk assessment performed?: Yes Alcohol Intake: current Alcohol Intake frequency: a few times a week Alcohol type: beer Drug use: Occasionally Substance use type: marijuana Household members: none Housing: house Number of Children: 3 Communication Needs: Corrective Lenses 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 Current gender identity: male What is your relationship status?: Panel score (0-1 are the most socially isolated patients): 0 What type of physical activity do you participate in: walking Duration: 15-30 minutes/day Frequency: 3-4 times per week Seatbelt use: always Drive intox or 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 cdl 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
[2024-08-29 14:15] LABS: Abs Immature Grans 0.08 10^3/uL (0.0-0.06); Absolute Basophil Count 0.02 10^3/uL (0.0-0.2); Absolute Eosinophil Count 0.02 10^3/uL (0.0-0.7); Absolute Lymphocyte Count 1.49 10^3/uL (1.2-3.4); Absolute Monocyte Count 0.45 10^3/uL (0.1-0.8); Basophils % 0.2 %; Eosinophils % 0.2 %; HCT 37.9 % (40.0-50.0); HGB 12.6 g/dL (13.5-17.5); Immature Grans % 0.7 %; Lymphocytes % 12.6 %; MCH 31.2 pg (27.0-33.0); MCHC 33.2 % (32.0-36.0); MCV 94 fL (80-95); MPV 9.7 fL (8.0-11.0); Monocytes % 3.8 %; Neutrophils % 82.5 %; Platelet Count 258 10^3/uL (130-400); RBC 4.04 10^6/uL (4.36-5.78); RDW 13.2 % (11.8-14.1); RDW-SD 45.3 fL; WBC 11.83 10^3/uL (4.4-10.8)
[2024-08-29 14:16] LABS: Absolute Neutrophil Count 9.76 10^3/uL (1.2-6.7)
[2024-08-29 14:18] LABS: Lactate 2.3 mmol/L (0.6-1.4)
[2024-08-29 14:45] LABS: ALT 19 U/L (16-63); AST 11 U/L (15-37); Albumin 3.2 g/dL (3.4-5.0); Alkaline Phosphatase 63 U/L (46-116); Anion Gap 10.5 mmol/L (3-11); BUN 19 mg/dL (7-18); Bilirubin, Total 0.39 mg/dL (0.2-1.0); CO2 27.5 mmol/L (21.0-32.0); CREATININE 1.6 mg/dL (0.70-1.30); Chloride 103 mmol/L (98-107); Estimated GFR 44.65 (mL/min/1.73m2); Glucose 275 mg/dL (74-106); Lipase 62 U/L (16-77); Magnesium 2.1 mg/dL (1.8-2.4); NT-proBNP 85 pg/mL (<300); Potassium 4.6 mmol/L (3.5-5.1); Sodium 141 mmol/L (136-145); TSH (W/Ref FT4) 2.51 uIU/mL (0.36-3.74); Total Protein 6.9 g/dL (6.4-8.2); Troponin I 9 ng/L (<or=76)
[2024-08-29 14:54] LABS: Calcium 9.2 mg/dL (8.5-10.1)
[2024-08-29 15:17] LABS: Troponin I 12 ng/L (<or=76)
[2024-08-29 16:44] LABS: Lactate 1.9 mmol/L (0.6-1.4)
[2024-08-29 17:24] LABS: Troponin I 11 ng/L (<or=76)
[2024-08-29 17:30] LABS: Bilirubin Negative (Negative); Blood Negative (Negative); Clarity Clear (Clear); Glucose 250 mg/dL (Negative); Ketones Negative (Negative); Leukocyte Esterase Negative (Negative); Nitrite Negative (Negative); Specific Gravity 1.025 (1.005-1.025); Urobilinogen 0.2 mg/dL (Up to 0.2); pH 5.5 (5-8)
== END 2024-08-29 17:47 | disposition home or self-care (01) ==
PROVIDERS: Physician Assistant; Emergency Provider Registered Nurse Emergency; PCP Nurse Practitioner Adult Health
DX: R55 Syncope and collapse (principal); M31.5 Giant cell arteritis with polymyalgia rheumatica; Z79.82 Long term (current) use of aspirin; Z79.52 Long term (current) use of systemic steroids
CPT/HCPCS: 36415; 80053; 83690; 87040; 93005; 99285; 70450; 71046; 81003; 83605; 83735; 83880; 84443; 84484; 85025; 93010; 99284

== ENCOUNTER 2024-09-25 08:43 | Inpatient (IN) | payer MEDICARE, MEDICAID, SELFPAY ==
[2024-09-25] VITALS (120 sets, daily range): BP systolic 83–161; BP diastolic 43–95; PULSE 62–108; RESP 16–18; TEMP 36.9–38.2; O2SAT 89–98
--- NOTE | 2024-09-25 08:59 | W.ED.GENAD ---
Discharge Plan Disposition Patient Disposition: Admit to [facility] Condition: Stable Discharge Details Chief Complaint: Fever Clinical Impression: Weakness, COVID Primary Care Provider: Yesy Nagy ED Provider: Red Flecther Home Meds and New Rx's Prescriptions: No Action prednisone 5 mg tablet 5 mg PO DAILY Qty: 90 1RF amlodipine 2.5 mg tablet 2.5 mg PO HS MDD 5mg/24h Qty: 180 3RF Rx Instructions: Dose reduction 11/2023, but may increase to 5mg daily if BP not at goal <140/90 vitamin B complex [B Complex-Vitamin B12] Tablet 1 tab PO DAILY tamsulosin [Flomax] 0.4 mg capsule 0.8 mg PO DAILY Qty: 180 3RF Rx Instructions: Enlarged prostate; dose increase 03/29/2023 (DME) blood-glucose meter Kit See Rx Instructions .Route Qty: 1 0RF Rx Instructions: ONE TOUCH METER As directed to check blood glucose daily. No insulin. DX:E11.9 to maintain Hba1c <7% prednisone 2.5 mg tablet 2.5 mg PO DAILY aspirin 325 mg tablet 162.5 - 325 mg PO DAILY PRN calcium carbonate-vitamin D3 [Caltrate with Vitamin D3] 600 mg-20 mcg (800 unit) tablet 2 tab PO DAILY Qty: 180 3RF Rx Instructions: For bone health while on prednisone rosuvastatin 5 mg tablet 5 mg PO DAILY Qty: 90 3RF Rx Instructions: For cholesterol, steroid-induced diabetes (DME) blood sugar diagnostic Strip See Rx Instructions .Route Qty: 100 3RF Rx Instructions: One touch test strips to check blood glucose daily. no insulin. DX:E11.9 to maintain Hba1c <7% (DME) lancets Misc See Rx Instructions .Route Qty: 100 3RF Rx Instructions: E11.9 for daily monitoring for A1C <=7% One touch lancets methotrexate sodium 10 mg tablet 10 mg PO QWEEK folic acid PO DAILY HPI General Mode of arrival: EMS. Date/Time Provider Initiated Documentation: 09/25/24 08:49. Limitations to Documentation: no limitations. Information obtained by: patient. History of Present Illness 73 year old M presents to the emergency department with the chief complaint of general weakness, fever, described as moderate, Patient reports no radiation. Patient started experiencing this day(s) (1) and it has been constant. No relieving factors improve symptom(s), No exacerbating factors reported . Patient notes fever/chills; denies chest pain and shortness of breath. Patient did receive the following treatments prior to arrival, none Related Data Home Medications ?Medication ?Instructions ?Recorded ?Confirmed vitamin B complex (B 1 tab PO DAILY 05/06/21 08/29/24 Complex-Vitamin B12 tablet) amlodipine 2.5 mg tablet 2.5 mg PO HS #180 tabs 12/17/23 08/29/24 prednisone 5 mg tablet 5 mg PO DAILY #90 tabs 12/17/23 08/29/24 blood-glucose meter #1 ea 05/19/24 08/29/24 tamsulosin 0.4 mg capsule (Flomax) 0.8 mg (2 x 0.4 mg) PO DAILY #180 05/19/24 08/29/24 tab-caps blood sugar diagnostic #100 ea 06/09/24 08/29/24 lancets #100 ea 06/09/24 08/29/24 aspirin 325 mg tablet 162.5 - 325 mg PO DAILY PRN 06/26/24 08/29/24 calcium 600 mg (as 2 tab PO DAILY #180 tabs 06/26/24 08/29/24 carbonate)-vitamin D3 20 mcg (800 unit) tablet (Caltrate with Vitamin D3) prednisone 2.5 mg tablet 2.5 mg PO DAILY 06/26/24 08/29/24 rosuvastatin 5 mg tablet 5 mg PO DAILY #90 tabs 06/26/24 08/29/24 folic acid PO DAILY 07/17/24 07/17/24 methotrexate sodium 10 mg tablet 10 mg PO QWEEK 07/17/24 08/29/24 Previous Rx's ?Medication ?Instructions ?Recorded amlodipine 2.5 mg tablet 2.5 mg PO HS #180 tabs 12/17/23 prednisone 5 mg tablet 5 mg PO DAILY #90 tabs 12/17/23 blood-glucose meter #1 ea 05/19/24 tamsulosin 0.4 mg capsule (Flomax) 0.8 mg (2 x 0.4 mg) PO DAILY #180 05/19/24 tab-caps blood sugar diagnostic #100 ea 06/09/24 lancets #100 ea 06/09/24 calcium 600 mg (as 2 tab PO DAILY #180 tabs 06/26/24 carbonate)-vitamin D3 20 mcg (800 unit) tablet (Caltrate with Vitamin D3) rosuvastatin 5 mg tablet 5 mg PO DAILY #90 tabs 06/26/24 Allergies Allergy/AdvReac Type Severity Reaction Status Date / Time amoxicillin (From Augmentin) AdvReac Intermediate vomiting, Verified 08/29/24 13:14 GI Upset atenolol AdvReac Intermediate off Verified 08/29/24 13:14 balance, dizzy clavulanic acid (From AdvReac Intermediate vomiting, Verified 08/29/24 13:14 Augmentin) GI Upset General Stated Complaint: Fever ASIM: 3 Review of Systems All systems reviewed & are unremarkable except as noted in HPI and below Constitutional Constitutional: Reports chills, Reports fever(s) and Reports weakness Cardiovascular Cardiovascular: Denies chest pain and Denies dyspnea Respiratory Respiratory: Reports cough and Denies dyspnea Gastrointestinal Gastrointestinal: Denies abdominal pain, Denies nausea and Denies vomiting Integumentary/Breasts Skin/Breast: Denies rash Neurologic Neurologic: Reports weakness Psychiatric Psychiatric: Denies depression Exam Const General: no acute distress Orientation: alert [facility] Head: normal to inspection Ears: external ears normal General nose exam: external nose normal Mouth: moist mucous membranes Eyes General: appearance normal, both eyes and all related structures Neck Neck: normal visual inspection Resp Effort & Inspection: normal respiratory effort and able to speak in complete sentences Auscultation: diminished lung sounds Cardio Rate: regular rate GI Palpation: soft and nontender Skin General skin exam: no rashes or lesions noted Neuro General: patient alert and patient oriented x3 Extrem General: normal to inspection Psych Mental Status: mental status grossly normal Course Vital Signs Vital signs: Vital Signs Temperature 38.2 C H 09/25/24 08:41 Pulse 98 H 09/25/24 08:41 Respiratory Rate 16 09/25/24 08:41 Blood Pressure 161/62 H 09/25/24 08:41 Pulse Oximetry 89 L 09/25/24 08:41 Temperature 38.2 C H 09/25/24 08:55 Temperature Source Oral 09/25/24 08:55 Pulse 85 09/25/24 08:57 Respiratory Rate 16 09/25/24 08:57 Respiratory Effort Incrsd Work of Breathing 09/25/24 08:52 Blood Pressure 113/95 H 09/25/24 08:57 Pulse Oximetry 98 09/25/24 08:57 Oxygen Delivery Method Nasal Cannula 09/25/24 08:57 Oxygen Flow Rate 2 09/25/24 08:57 Pain Level 0 09/25/24 08:55 Comment placed on 2 liters oxygen 09/25/24 08:55 Lab/Test Results Lab/Test Results: 09/25/24 08:38 Blood Blood Culture - Pending 09/25/24 08:38 Blood Blood Culture - Pending Medical Decision Making 73-year-old male with a history of giant cell arteritis currently on methotrexate, hypertension, comes in with general weakness, cough and fevers starting last night. He denies any chest pain, difficulty breathing, abdominal pain, vomiting, rashes, neck stiffness or headaches. He is oriented x 4 and arrival. He does have diminished breath sounds at the bases and intermittent dry cough on exam. He has noted to be 89% on room air on arrival. On 2 L nasal cannula he is in the mid to high 90s. Given his fever we will proceed with CBC, CMP, lactate procalcitonin along with UA blood cultures. Will check a Fluvid and chest x-ray and reassess. 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 Patient is positive for COVID, reassuring procalcitonin and x-ray unremarkable. On room air he does desat to the high 80s so feel he warrants admission. Will discuss with the hospitalist. Differential Diagnosis Differential Diagnosis: pneumonia, covid, flu Medical Records Medical records reviewed: Yes I reviewed the patient's medical records. Lab Data Lab results reviewed: Yes I reviewed the patient's lab results. Quality:SDOH Health Related Social Needs: No Data to Display PFSH All Active Problems (Updated 08/29/24 @ 17:35 by Lolly Barrios NP) Dizziness (Acute) Cataracts, both eyes (Acute) [place] 07/24/24 not visually significant Diverticulosis (Acute ~08/2023) Peripheral neuropathy (Chronic 05/07/18) EtOH related; [facility] Neuro 2017 & 2022 Hypertension (Chronic 05/07/18) Goal 135-145 (lower & he feels poor)--didn't tolerate Lisinopril Benign prostatic hyperplasia (Chronic 05/13/18) RX Flomax History of alcohol abuse (Chronic 05/07/18) Family history of prostate cancer in father (Chronic) Also PGF Hyperlipidemia (Chronic ~07/2021) Recommend statin 07/2021; Eladia Read obtained lipoprotein a, elevated--> cardiology recommends consider statin 01/2022 Elevated lipoprotein A level (Acute ~12/2021) Declines statin Abnormal gait (Acute ~06/2022) Peripheral neuropathy + vestibular ([facility] Neuro 01/2023) On prednisone therapy (Acute ~04/2022) GCA (giant cell arteritis) (Acute ~11/2022) [facility] Endo--RX Actremra 01/2023; discontinued in favor of daily prednisone 7.5mg daily; switched to methotrexate 06/2024 Steroid-induced diabetes (Acute ~09/2022) Immunosuppressed status (Acute) LT prednisone for GCA Onychomycosis (Acute) Nail dystrophy (Acute) Medical History Anemia (~08/2022) Lightheadedness PMR (polymyalgia rheumatica) (~04/2022) COVID-19 (~08/2023) Impaired fasting glucose (05/07/18) Monitor annual A1Cs; +fam hx DMT2 Candidal paronychia Elevated serum creatinine Left scapholunate ligament tear Fracture of distal end of left radius (10/26/22) Immunization refused (~02/2022) Tachycardia secured entrance monitor stable--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 Seborrheic dermatitis of scalp Edema of lower extremity (05/07/18) Occurred x1, RX Furosemide and never reoccurred even off Furosemide Anxiety (05/07/18) GERD (gastroesophageal reflux disease) (05/07/18) Hepatomegaly (05/07/18) Resolved off EtOH Surgical History Tonsillectomy Appendectomy Family History Father , 73yo from metastatic prostate cancer Essential hypertension Heart disease Myocardial infarction Neoplasm Prostate Mother , early 70s diabetes complications Diabetes Paternal Grandfather , prostate cancer Neoplasm Prostate Social History Smoking/Tobacco Use Status: Former Tobacco Use Quit Date: 11/26/71 Smoking risk assessment performed?: Yes Alcohol Intake: current Alcohol Intake frequency: other Alcohol type: beer Drug use: Occasionally Substance use type: marijuana Household members: none Housing: house Number of Children: 3 Communication Needs: Corrective Lenses 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
[2024-09-25] MEDS: Acetaminophen 500 MG TAB 1000 MG PO (09:03)
[2024-09-25] MEDS: Albuterol/Ipratropium 3 ML UPD VIAL UPD (09:12)
--- OUTSIDE RECORDS SUMMARY | 2024-09-25 09:12 | XMS_ITS | Referral Summary ---
Author Organization [facility] Address [address] [place] [address] Care Team Providers Care Board Liner Operator Name Role Phone Unknown, Provider Primary Care Provider [phone] Unknown, Provider Unavailable [phone] Social History Tobacco Use Types Packs/Day Years [...] C Antibody Negative Negative 08/21/2022 10:26 EDT [facility] Blood VENOUS BLOOD / Unknown 08/18/2022 9:08 EDT 08/18/2022 18:19 EDT Provider Outr Resulting Lab CHEMISTRY & BLOOD GAS ORDERABLES [facility] [address] [place] [address] from Last 3 Months or Most Recently Relevant to Health Maintenance Care Teams Board Liner Operator Relationship Specialty Start Date End Date Unknown, ProviderMD PCP - General 11/10/15 Unknown, ProviderMD 11/10/15
--- OUTSIDE RECORDS SUMMARY | 2024-09-25 09:12 | XMS_ITS | Encounter Summary ---
Author Organization [facility] Address [address] [place] [address] Care Team Providers Care Butadiene Converter Utility Operator Name Role Phone Unknown, Provider Primary Care Provider [phone] Unknown, Provider Unavailable [phone] Encounter Details Date Type Department Care Team (Late st Contact Info) Description 06/19/2024 Lab Requisition [facility] Pathology & Laboratory Medicine - [address] [address] Outr Resulting Lab, Provider Social History Tobacco [...] Associated Diagnosis Comments PSA TOTAL, DIAGNOSTIC Routine 06/19/2024 8:55 EDT documented in this encounter Results * PSA TOTAL, DIAGNOSTIC (06/19/2024 8:55 EDT) PSA 3.3 <=6.5 ng/mL 06/19/2024 20:29 EDT [facility] Blood VENOUS BLOOD / Unknown 06/19/2024 8:55 EDT 06/19/2024 19:29 EDT Narrative [facility] - 06/19/2024 20:29 EDT NOTE: Serum PSA concentration should not be interpreted as absolute evidence for the presence or absence of malignant disease. Assayed on Siemens Cloudstaffaur XPT using chemiluminescent technology.??Values obtained by using different assay methods cannot be used interchangeably. Provider Outr Resulting Lab CHEMISTRY & BLOOD GAS ORDERABLES [facility] [address] [place] [id number] documented in this encounter Visit Diagnoses Not on filedocumented in this encounter Care Teams Butadiene Converter Utility Operator Relationship Specialty Start Date End Date Unknown, Provider, PCP - General 11/10/15 Unknown, ProviderMD 11/10/15 documented as of this encounter
--- OUTSIDE RECORDS SUMMARY | 2024-09-25 09:12 | XMS_ITS | Clinical Summary ---
Author Organization [facility] Address [address] [place] [id number] Care Team Providers Care Flat Machine Cutter Name Role Phone Unknown, Provider Primary Care Provider [phone] Unknown, Provider Unavailable [phone] Social History Tobacco Use Types Packs/Day Years [...] C Antibody Negative Negative 08/21/2022 10:26 EDT [facility] Blood VENOUS BLOOD / Unknown 08/18/2022 9:08 EDT 08/18/2022 18:19 EDT Provider Outr Resulting Lab CHEMISTRY & BLOOD GAS ORDERABLES [facility] [address] [place] [address] from Last 3 Months or Most Recently Relevant to Health Maintenance Care Teams Flat Machine Cutter Relationship Specialty Start Date End Date Unknown, Provider, PCP - General 11/10/15 Unknown, ProviderMD 11/10/15
--- OUTSIDE RECORDS SUMMARY | 2024-09-25 09:12 | XMS_ITS | Encounter Summary ---
Author Organization [facility] Address [address] [place] [address] Care Team Providers Care Ammonia Nitrate Operator Name Role Phone Unknown, Provider Primary Care Provider [phone] Unknown, Provider Unavailable [phone] Encounter Details Date Type Department Care Team (Late st Contact Info) Description 05/14/2023 Lab Requisition [facility] Pathology & Laboratory Medicine - [facility] [address] [place] [address] Outr Resulting Lab, Provider Social History Tobacco [...] ID No fungi isolated 06/12/2023 7:46 EDT [facility] Blood VENOUS BLOOD / Unknown 05/14/2023 12:20 EDT 05/14/2023 17:19 EDT Provider Outr Resulting Lab MICROBIOLOGY - GENERAL ORDERABLES [facility] [address] [place] [address] documented in this encounter Visit Diagnoses Not on filedocumented in this encounter Care Teams Ammonia Nitrate Operator Relationship Specialty Start Date End Date Unknown, Provider, PCP - General 11/10/15 Unknown, ProviderMD 11/10/15 documented as of this encounter
--- OUTSIDE RECORDS SUMMARY | 2024-09-25 09:13 | XMS_ITS | Encounter Summary ---
Author Organization [facility] [place] [address] Care Team Providers Care Dry Roaster Name Role Phone Yesy Nagy APRN Primary Care Provider Encounter Details Date Type Department Care Team (Late st Contact Info) Description 07/19/2023 Telephone [place] [phone] Ananya Payan DO [facility] RHEUMATOLOGY DEPT [place] [place], [place] [id number] Social History Tobacco Use Types Packs/Day Years [...] documented in this encounter Plan of Treatment Upcoming Encounters Date Type Department Care Team (Late st Contact Info) Description 09/25/2024 3:15 PM EDT Office Visit [place] [id number] Mika Quiroga MD [facility] [address] [place] [address] Obdulia Coleman MD [facility] RHEUMATOLOGY [place] [address] documented as of this encounter Goals Goal Patient Goal Type Associated Problems Recent Progress Patient-Stated? Author DH Self-Management Patient Facing Action Plan No Danica Taylor, [facility] Note: Judson Robe Patel Jr. Is hoping to decrease his prednisone dosage and keep pain levels at a minimum. He is hoping that Actemra will be able to keep him walking since before prednisone he had a hard time standing up and walking around. documented as of this encounter Visit Diagnoses Not on filedocumented in this encounter Care Teams Dry Roaster Relationship Specialty Start Date End Date Yesy Nagy APRN [address] [place] [address] PCP - General Geriatric Medicine 08/02/22 documented as of this encounter
--- OUTSIDE RECORDS SUMMARY | 2024-09-25 09:13 | XMS_ITS | Clinical Summary ---
Author Organization [facility] Address [facility] [place] [address] Care Team Providers Care Consumer Sales Representative Name Role Phone Yesy Nagy MALACHI Primary Care Provider [phone] Allergies Active Allergy Reactions Criticality Noted Date [...] OIL ORAL) Take by mouth. Active Ascorbic Vjaa-[id number]-Kzj (Emergen-C) 1,000 mg Powder Effervescent in Packet Take by mouth. Active metFORMIN XR (Glucophage XR) 500 mg Tablet Sustained Release 24 hr Take 500 mg by mouth daily. 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 Then switch to applying topically 2 times daily (BID) on weekends only (Sat-Sun) for maintenance. 30 g 3 05/23/2023 Active Additional Information Patient not taking.Reported on 07/14/2024 cholecalciferol, Vitamin D3, 25 mcg (1,000 unit) Capsule daily. 09/20/2022 Acti ve clotrimazole (LOTRIMIN) 1 % Cream Twice a day 04/30/2023 Act celio ketoconazole (NIZORAL) 2 % Shampoo .2x/week 02/19/2023 Act celio diclofenac (Voltaren) 1 % GelIndications:PMR (polymyalgia rheumatica),Primary osteoarthritis of both hands Apply 2 g topically 4 times daily. 100 g 3 06/22/2023 Active Additional Information Patient not taking.Reported on 07/14/2024 predniSONE (Deltasone) 5 mg tablet Continue taking Prednisone 7.5 mg daily for 4 weeks followed by 7 mg daily for 2 weeks followed by 6 mg daily for 2 weeks followed by 5 mg daily for 2 weeks folllowed by taper by 1 mg every 2 weeks 80 tablet 07/14/2024 Active predniSONE (Deltasone) 1 mg tablet -Continue taking Prednisone 7.5 mg daily for 4 weeks followed by 7 mg daily for 2 weeks followed by 6 mg daily for 2 weeks followed by 5 mg daily for 2 weeks folllowed by taper by 1 mg every 2 weeks 80 tablet 07/14/2024 Active metHOTREXate (TrexalL) 2.5 mg tablet Take 4 tablets (10 mg) by mouth once a week. 90 tablet 07/14/2024 Active folic acid (Vitamin B9) 1 mg tablet Take 1 tablet by mouth daily. 90 tablet 3 07/14/2024 Active Active Problems Problem Noted Date Diagnosed Date PMR (polymyalgia rheumatica) 09/14/2022 Encounters Date Type Department Care Team Description 08/06/2024 [place] [address] Landy Monson RN 07/14/2024 12:55 PM EDT Laboratory Appointment Lab [address] [place] [address] GCA (giant cell arteritis); Neuropathy; Prediabetes 07/14/2024 10:30 AM EDT Office [place] [address] Obdulia Coleman MD GCA (giant cell arteritis); Neuropathy; Prediabetes 07/14/2024 [place] [address] Dayna Paez RN 07/14/2024 Travel from Last 3 Months Social History Tobacco [...] Sign Reading Time Taken Comments Blood Pressure 126/64 07/14/2024 10:31 AM EDT Pulse 68 07/14/2024 10:31 AM EDT Temperature 36.8 ??C (98.3 ??F) 07/14/2024 1 0:31 AM EDT Respiratory Rate 16 05/31/2023 9:10 AM EDT Oxygen Saturation 95% 07/14/2024 10: 31 AM EDT Inhaled Oxygen Concentration - - Weight 72.6 kg (160 lb) 05/31/2023 9:10 AM EDT Height 170.2 cm (5' 7) 09/14/2022 9:59 AM EDT patient reported Body Mass Index 25.06 09/14/2022 9:59 AM EDT Plan of Treatment Upcoming Encounters Date Type Department Care Team (Late st Contact Info) Description 09/25/2024 3:15 PM EDT Office [place] [address] Mika Quiroga MD [facility] [place] [address] Obdulia Coleman MD [facility] [place] [address] Health Maintenance Due Date Last Done Comments CT Colonography 1948 Colonoscopy 1948 Colorectal Cancer Screening 1948 FIT DNA 1948 FIT 1948 Sigmoidoscopy (10 year) with FIT yearly 1948 Sigmoidoscopy 1948 Tetanus/Diphtheria/Pertussis Vaccines (1 - Tdap) 10/08 Zoster vaccine (1 of 2) 1998 Advance Directive 2003 AAA Screen 2013 Pneumoccocal Vaccine: 65+ (1 of 1 - PCV) 2013 Covid-19 Vaccine (1 - 2022-24 season) 2024 Influenza (Flu) vaccine (1 o f 1 - Influenza standard series) 07/27/2024 Lipid Screening 05/31/2028 05/31/2023 Hepatitis C Screening Completed 01/23/2023 Goals Goal Patient Goal Type Associated Problems Recent Progress Patient-Stated? Author DH Self-Management Patient Facing Action Plan No Danica Taylor, [facility] Note: Judson Robe Patel Jr. Is hoping to decrease his prednisone dosage and keep pain levels at a minimum. He is hoping that Actemra will be able to keep him walking since before prednisone he had a hard time standing up and walking around. Procedures Procedure Name Priority Date/Time Associated Diagnosis Comments PROTEIN, URINE ELECTROPHORESIS (PERFORMABLE) Routine 07/14/2024 11:53 AM EDT GCA (giant cell arteritis) PEP, URINE RANDOM (PERFORMABLE) Routine 07/14/2024 11:53 AM EDT GCA (giant cell arteritis) PROTEIN, TOTAL ELECTROPHORESIS (PERFROMABLE) Routine 07/14/2024 11:53 AM EDT GCA (giant cell arteritis) PEP, SERUM (PERFORMABLE) Routine 07/14/2024 11:53 AM EDT GCA (giant cell arteritis) HEMOGLOBIN A1C Routine 07/14/2024 11:53 AM EDT Neuropathy Prediabetes VITAMIN B12 Routine 07/14/2024 11:53 AM EDT GCA (giant cell arteritis) PROTEIN ELECTROPHORESIS, URINE, RANDOM Routine 07/14/2024 11:53 AM EDT GCA (giant cell arteritis) PROTEIN ELECTROPHORESIS, SERUM Routine 07/14/2024 11:53 AM EDT GCA (giant cell arteritis) CRP, ACUTE INFLAMMATION Routine 07/14/2024 11:53 AM EDT GCA (giant cell arteritis) SEDIMENTATION RATE Routine 07/14/2024 11 :53 AM EDT GCA (giant cell arteritis) COMPREHENSIVE METABOLIC PANEL Routine 07/14/2024 11:53 AM EDT GCA (giant cell arteritis) CBC (WITH DIFF) Routine 07/14/2024 11:53 AM EDT GCA (giant cell arteritis) LAB SCAN 06/26/2024 12:00 AM EDT LIPID PANEL (REFLEX DIRECT LDL) Routine 05/31/2023 10:18 AM EDT GCA (giant cell arteritis) Immunosuppressed status Medication monitoring encounter Hyperlipidemia, unspecified hyperlipidemia type HC HEPATITIS C ANTIBODY Routine 01/23/2023 9:59 AM EST GCA (giant cell arteritis) Immunosuppressed status from Last 3 Months or Most Recently Relevant to Health Maintenance Results * Protein, Serum Electrophoresis (07/14/2024 11:53 AM EDT) Blood VENOUS BLOOD SPECIMEN / Unknown Venipuncture / Unknown 07/14/2024 11:53 AM EDT 07/14/2024 11:53 AM EDT Mika Quiroga MD URINE ORDERABLES [facility] [place] [address] * (ABNORMAL) PEP, Serum (07/14/2024 11:53 AM EDT) Protein, Total 6.6 6.1 - 8.0 g/dL 07/15/2024 3:23 PM EDT [facility] Albumin Electrophoresis 4.17 3.20 - 5.20 g/dL 07/15/2024 3:23 PM EDT [facility] Alpha 1 Globulin 0.17 0.10 - 0.30 g/dL 07/15/2024 3:23 PM EDT [facility] Alpha 2 Globulin 0.91(H) 0.40 - 0.90 g/dL 07/15/2024 3:23 PM EDT [facility] Beta Globulin 0.69 0.50 - 1.00 g/dL 07/15/2024 3:23 PM EDT [facility] Gamma Globulin 0.66 0.50 - 1.30 g/dL 07/15/2024 3:23 PM EDT [facility] M1 Band 07/15/2024 3:23 PM EDT [facility] Comment:None Detected Blood VENOUS BLOOD SPECIMEN / Unknown Venipuncture / Unknown 07/14/2024 11:53 AM EDT 07/14/2024 11:53 AM EDT Mika Quiroga MD URINE ORDERABLES Performing Organization Address City/[facility]/ZIP Co de Phone Number [facility] [place] [address] * Protein, Urine Electrophoresis (07/14/2024 11:53 AM EDT) Urine URINE SPECIMEN / Unknown Non Blood Collection / Unknown 07/14/2024 11:53 AM EDT 07/14/2024 11:53 AM EDT Mika Quiroga MD URINE ORDERABLES Performing Organization Address City/[facility]/ZIP Co de Phone Number [facility] [place] [address] * (ABNORMAL) PEP, Urine Random (07/14/2024 11:53 AM EDT) Albumin, Urine Electrophoresis 70 % total 07/15/2024 3:34 PM EDT [facility] Globulin, Random Urine 30 % total 07/15/2024 3:34 PM EDT [facility] M1 Band, Urine 07/15/2024 3:34 PM EDT [facility] Comment:There is no evidence of clonal free light chains in this patient's urine sample. Protein, Urine 23(H) 0 - 12 mg/dL 07/15/2024 3:34 PM EDT [facility] Urine URINE SPECIMEN / Unknown Non Blood Collection / Unknown 07/14/2024 11:53 AM EDT 07/14/2024 11:53 AM EDT Mika Quiroga MD URINE ORDERABLES Performing Organization Address City/[facility]/ZIP Co de Phone Number [facility] [place] [address] * (ABNORMAL) CRP, acute inflammation (07/14/2024 11:53 AM EDT) C-Reactive Protein 5.6(H) <=4.9 mg/L 07/14/2024 12:38 PM EDT [facility] Blood VENOUS BLOOD SPECIMEN / Unknown Venipuncture / Unknown 07/14/2024 11:53 AM EDT 07/14/2024 11:53 AM EDT Mika Quiroga MD CHEMISTRY ORDERABLES Performing Organization Address [facility] Co de Phone Number [facility] [place] [address] * (ABNORMAL) Sedimentation rate (07/14/2024 11:53 AM EDT) Sedimentation Rate Automated 57(H) 3 - 46 mm/hr 07/14/2024 12:42 PM EDT [facility] Blood VENOUS BLOOD SPECIMEN / Unknown Venipuncture / Unknown 07/14/2024 11:53 AM EDT 07/14/2024 11:53 AM EDT Mika Quiroga MD HEMATOLOGY ORDERABLE S Performing Organization Address City/[facility]/ZIP Co de Phone Number [facility] [place] [address] * (ABNORMAL) CBC (with Diff) (07/14/2024 11:53 AM EDT) White Blood Cell 16.07(H) 4.00 - 9.50 x10(3)/mc L 07/14/2024 12:42 PM [facility] Red Blood Cell 4.42(L) 4.58 - 5.54 x10(6)/mc L 07/14/2024 12:42 PM [facility] Hemoglobin 13.7 13.7 - 16.5 g/dL 07/14/2024 12:42 PM [facility] Hematocrit 40.4(L) 40.5 - 48.5 % 07/14/2024 12:42 PM [facility] Mean Cell Volume 91.4 82.9 - 93.1 fL 07/14/2024 12:42 PM [facility] Mean Cell Hemoglobin 31.0 27.5 - 32.1 pg 07/14/2024 12:42 PM [facility] Mean Cell Hemoglobin Concentration 33.9 32.0 - 35.7 g/dL 07/14/2024 12:42 PM [facility] Platelet 256 145 - 357 x10(3)/mc L 07/14/2024 12:42 PM [facility] Mean Platelet Volume 9.8 7.6 - 12.9 fL 07/14/2024 12:42 PM [facility] RDW Standard Deviation 44.5 36.0 - 45.0 fL 07/14/2024 12:42 PM [facility] RDW coefficient of variation 13.2 11.4 - 13.8 % 07/14/2024 12:42 PM [facility] NRBC% auto 0.0 % 07/14/2024 12:42 PM [facility] NRBC Absolute 0.00 0.00 - 0.00 x10(3)/mc L 07/14/2024 12:42 PM [facility] Neutrophil % 83.2 % 07/14/2024 12:42 PM EDT [facility] Neutrophil Absolute (ANC) - Automated 13.36(H) 1.70 - 6.10 x10(3)/mc L 07/14/2024 12:42 PM EDT [facility] Lymph % 10.8 % 07/14/2024 12:42 PM EDT [facility] Lymph Absolute 1.74 0.90 - 3.20 x10(3)/mc L 07/14/2024 12:42 PM EDT [facility] Monocyte % 4.2 % 07/14/2024 12:42 PM EDT [facility] Monocyte Absolute 0.68 0.30 - 0.90 x10(3)/mc L 07/14/2024 12:42 PM EDT [facility] Eos % 0.2 % 07/14/2024 12:42 PM EDT [facility] Eos Absolute 0.03 0.00 - 0.40 x10(3)/mc L 07/14/2024 12:42 PM EDT [facility] Basophil % 0.2 % 07/14/2024 12:42 PM EDT [facility] Baso Absolute 0.04 0.00 - 0.10 x10(3)/mc L 07/14/2024 12:42 PM EDT [facility] Immature Gran % 1.4 % 12:42 PM EDT [facility] Immature Gran Absolute 0.22(H) 0.00 - 0.04 x10(3)/mc L 07/14/2024 12:42 PM EDT [facility] Blood VENOUS BLOOD SPECIMEN / Unknown Venipuncture / Unknown 07/14/2024 11:53 AM EDT 07/14/2024 11:53 AM EDT Mika Quiroga MD HEMATOLOGY ORDERABLE S [facility] [place] [address] * (ABNORMAL) Hemoglobin A1c (07/14/2024 11:53 AM EDT) Hemoglobin A1c 7.7(H) 4.3 - 5.6 % 07/14/2024 12:34 PM EDT [facility] Comment: Per ADA guidelines, without clear symptoms of hyperglycemia or a random plasma glucose >199 mg/dL, a single abnormal A1c measurement cannot be used to diagnose diabetes mellitus. The diagnosis must be confirmed by either 1) a concurrent abnormal fasting plasma glucose or impaired response to oral glucose tolerance testing, or 2) an additional abnormal A1c, impaired fasting plasma glucose, or impaired response to oral glucose tolerance testing on a different day. A1c results obtained on patients with altered red blood cell turnover may not be associate financial representative of glycemic control. Reference Interval: 4.3 - 5.6% 5.7 - 6.4%: Consistent with prediabetes >=6.5%: Consistent with diagnosis of diabetes mellitus Estimated Average Glucose 07/14/2024 12:34 PM EDT [facility] Comment:Not Calculated. Blood VENOUS BLOOD SPECIMEN / Unknown Venipuncture / Unknown 07/14/2024 11:53 AM EDT 07/14/2024 11:53 AM EDT [facility] - 07/14/2024 12:34 PM EDT Estimated average glucose (eAG) is calculated from the equation described in: Alejandro DM, Dayana J, Jelly R, et al. ??Translating the A1C assay into estimated average glucose values. ??Diabetes Care 2008:31(8):4742-1730. Additional resources are available on the ADA website (diabetes.org). Mika Quiroga MD CHEMISTRY ORDERABLES [facility] [place] [address] * (ABNORMAL) Vitamin B12 (07/14/2024 11:53 AM EDT) Vitamin B12 1,260(H) 232 - 1,245 pg/mL 07/14/2024 12:52 PM EDT [facility] Blood VENOUS BLOOD SPECIMEN / Unknown Venipuncture / Unknown 07/14/2024 11:53 AM EDT 07/14/2024 11:53 AM EDT Mika Quiroga MD CHEMISTRY ORDERABLES [facility] [place] [address] * (ABNORMAL) Comprehensive metabolic panel (07/14/2024 11:53 AM EDT) Glucose 199 65 - 199 mg/dL 07/14/2024 12:38 PM EDT [facility] Comment:Glucose Concentratio n >=200 mg/dL plus symptoms is consistent with Diabetes Mellitus. Blood Urea Nitrogen 18 10 - 20 mg/dL 07/14/2024 12:38 PM EDT [facility] Creatinine 1.22 0.80 - 1.50 mg/dL 07/14/2024 12:38 PM EDT [facility] Sodium 137 135 - 145 mMol/L 07/14/2024 12:38 PM EDT [facility] Potassium 4.5 3.5 - 5.0 mMol/L 07/14/2024 12:38 PM EDT [facility] Chloride 97(L) 98 - 107 mMol/L 07/14/2024 12:38 PM EDT [facility] Carbon Dioxide 24 22 - 31 mMol/L 07/14/2024 12:38 PM EDT [facility] Anion Gap 16(H) 5 - 15 mMol/L 07/14/2024 12:38 PM EDT [facility] Calcium 10.2 8.5 - 10.5 mg/dL 07/14/2024 12:38 PM EDT [facility] Protein, Total 7.1 6.1 - 8.0 g/dL 07/14/2024 12:38 PM EDT [facility] Albumin 4.2 3.2 - 5.2 g/dL 07/14/2024 12:38 PM EDT [facility] Aspartate Aminotransferase 13 <=39 unit/L 07/14/2024 12:38 PM EDT [facility] Alanine Aminotransferase 15 0 - 55 unit/L 07/14/2024 12:38 PM EDT [facility] Alkaline Phosphatase 71 40 - 130 unit/L 07/14/2024 12:38 PM EDT [facility] Bilirubin, Total 0.4 <=1.3 mg/dL 07/14/2024 12:38 PM EDT [facility] Est Glomerular Filtration Rate - Male 62 mL/min/1. 73 m?? 07/14/2024 12:38 PM EDT [facility] Comment: This patient's [...] urine creatinine clearance. Assignment of CKD stage 1 - 5 for patients with an eGFR near the transition point between stages may be based on clinical assessment of muscle mass and symptoms in addition to eGFR. Link: eGFR Calculator National Kid[employer] Fasting Status No 07/14/2024 12:38 PM EDT [facility] Blood VENOUS BLOOD SPECIMEN / Unknown Venipuncture / Unknown 07/14/2024 11:53 AM EDT 07/14/2024 11:53 AM EDT Mika Quiroga MD CHEMISTRY ORDERABLES [facility] [place] [address] * Scan Doc: Lab (06/26/2024 12:00 AM EDT) Narrative 06/26/2024 12:00 AM EDT Ordered by an unspecified provider. Scanning Provider MEDIA MGR SCAN EXT O RDR/RSLT * Lipid Panel (Reflex Direct LDL) (05/31/2023 10:18 AM EDT) Cholesterol, Total 239 mg/dL [facility] Comment: Lower Risk: <200 mg/dL Average Risk: 200-239 mg/dL Higher Risk: >xa=894 mg/dL Triglyceride 191 mg/dL [facility] Comment: Average Risk/Lower Risk: <150 mg/dL Borderline High Risk: 150-199 mg/dL High Risk: 200-499 mg/dL Very High Risk: >ec=831 mg/dL HDL Cholesterol 51 mg/dL [facility] Comment: Males: ?? Higher Risk: <40 mg/dL Females: ?? Higher Risk: <50 mg/dL LDL Cholesterol 150 mg/dL [facility] Comment: Lowest Risk: <100 mg/dL Lower Risk: 100-129 mg/dL Borderline High Risk: 130-159 mg/dL High Risk: 160-189 mg/dL Very High Risk: >jl=697 mg/dL Cholesterol/HDL Ratio 4.7 ratio [facility] Lipid Interpretation See Note [facility] Comment: Lipid management should be guided by a patient? s ASCVD risk, goals and preferences. ACC/AHA Guidelines recommend high intensity statin if clinical ASCVD or LDL greater than or equal to 190 mg/dL. http://LifeWaveurl.com/VFE-TOJ-Xeacsfmse Adults aged 40-75 with LDL 70-189 mg/dL should have their 10 year ASCVD risk estimated with the ACC/AHA ASCVD risk millwork estimator http://tools.acc.org/LZHWW-Zldd-Jbfmitplb/ Statin should be discussed if risk greater [...] Lab Junior Bernard MD CHEMISTRY ORDERABLE S [facility] [place] [address] * Hepatitis C Antibody (01/23/2023 9:59 AM EST) Hepatitis C Antibody Negative Negative [facility] Blood 01/23/2023 9:59 AM EST 01/23/2023 10:08 AM EST Narrative Resulting Agency Comment Spec In Lab Linda Shaikh DO CHEMISTRY ORDERABL ES [facility] [place] [address] from Last 3 Months or Most Recently Relevant to Health Maintenance Care Teams Consumer Sales Representative Relationship Specialty Start Date End Date Yesy Nagy APRN [address] [place] [address] PCP - General Geriatric Medicine 08/02/22
--- OUTSIDE RECORDS SUMMARY | 2024-09-25 09:13 | XMS_ITS | Encounter Summary ---
Author Organization [facility] [place] [address] Care Team Providers Care Table Keeper Name Role Phone Yesy Nagy MASTER SHEET CLERK Primary Care Provider Encounter Details Date [...] as of this encounter Plan of Treatment Upcoming Encounters Date Type Department Care Team (Late st Contact Info) Description 09/25/2024 3:15 PM EDT Office Visit Rheumatology at [place] [phone] Mika Quiroga MD [facility] [place] [address] Obdulia Coleman MD [facility] [place] [address] documented as of this encounter Goals Goal [...] on filedocumented in this encounter Care Teams Table Keeper Relationship Specialty Start Date End Date Yesy Nagy APRN [address] [place] [address] PCP - General Geriatric Medicine 08/02/22 documented as of this encounter
--- OUTSIDE RECORDS SUMMARY | 2024-09-25 09:13 | XMS_ITS | Encounter Summary ---
Author Organization [facility] [place] [address] Care Team Providers Care Pulmonary Disease Specialist Name Role Phone Yesy Nagy FIBREGLASS GUN [employer] Primary Care Provider Encounter Details Date Type Department Care Team (Latest Contact Info) Description 07/14/2024 Travel Social History Tobacco Use Types Packs/Day [...] 3:15 PM EDT Office Visit Rheumatology at [place] [phone] Mika Quiroga MD [facility] [place] [address] Obdulia Coleman MD [facility] [place] [address] documented as of this encounter Goals Goal Patient Goal Type Associated Problems Recent Progress Patient-Stated? Author DH Self-Management Patient Facing Action Plan No Danica Taylor, [facility] Note: Judson Patel Jr. Is hoping to decrease his prednisone dosage and keep pain levels at a minimum. He is hoping that Actemra will be able to keep him walking since before prednisone he had a hard time standing up and walking around. documented as of this encounter Visit Diagnoses Not on filedocumented in this encounter Care Teams Pulmonary Disease Specialist Relationship Specialty Start Date End Date Yesy Nagy APRN [address] [place] [address] PCP - General Geriatric Medicine 08/02/22 documented as of this encounter
--- OUTSIDE RECORDS SUMMARY | 2024-09-25 09:13 | XMS_ITS | Encounter Summary ---
Author Organization [facility] [place] [address] Care Team Providers Care Promotions Representative Name Role Phone Yesy Nagy APRN Primary Care Provider [phone] Reason for Visit * Reason Comments Medication Refill Encounter Details Date Type Department Care Team (Late st Contact Info) Description 04/22/2024 [place] [phone] Thony Dee MD [facility] [place] [address] Social History Tobacco Use Types Packs/Day Years [...] 3:15 PM EDT Office [place] [phone] Mika Quiroga MD [facility] [place] [address] Obdulia Coleman MD [facility] [place] [address] documented as of this encounter Goals Goal Patient Goal Type Associated Problems Recent Progress Patient-Stated? Author Self-Management Patient Facing Action Plan Danica Casillas, [facility] Note: Judson Robe Patel Jr. Is hoping to decrease his prednisone dosage and keep pain levels at a minimum. He is hoping that Actemra will be able to keep him walking since before prednisone he had a hard time standing up and walking around. documented as of this encounter Visit Diagnoses Not on filedocumented in this encounter Care Teams Promotions Representative Relationship Specialty Start Date End Date Yesy Nagy APRN [address] [place] [address] PCP - General Geriatric Medicine 08/02/22 documented as of this encounter
--- OUTSIDE RECORDS SUMMARY | 2024-09-25 09:13 | XMS_ITS | Encounter Summary ---
Author Organization [facility] [place] [address] Care Team Providers Care Job Interviewer Name Role Phone Yesy Nagy APRN Primary Care Provider [phone] Encounter Details Date Type Department Care Team (Late st Contact Info) Description 07/19/2023 [place] [address] Dyana Paez, RN Social History Tobacco Use Types [...] 07/19/2023 3:59 PM EDT Copied from CRM #[id number]. Topic: Specialty Dept CRMs - Generic Call [...] 3:15 PM EDT Office [place] [address] Mika Quiroga MD [facility] [place] [address] Obdulia Coleman MD [facility] [place] [address] documented as of this encounter Goals Goal Patient Goal Type Associated Problems Recent Progress Patient-Stated? Author DH Self-Management Patient Facing Action Plan No Danica Taylor, [facility] Note: Judson Nagel Jorge Cisse. Is hoping to decrease his prednisone dosage and keep pain levels at a minimum. He is hoping that Actemra will be able to keep him walking since before prednisone he had a hard time standing up and walking around. documented as of this encounter Visit Diagnoses Not on filedocumented in this encounter Care Teams Job Interviewer Relationship Specialty Start Date End Date Yesy Nagy APRN [address] [place] [address] PCP - General Geriatric Medicine 08/02/22 documented as of this encounter
--- OUTSIDE RECORDS SUMMARY | 2024-09-25 09:13 | XMS_ITS | Encounter Summary ---
Author Organization [facility] Address [address] [place] [address] Care Team Providers Care Jewelry Store Manager Name Role Phone Unknown, Provider Primary Care Provider [phone] Unknown, Provider Unavailable [phone] Encounter Details Date Type Department Care Team (Late st Contact Info) Description 12/02/2021 Lab Requisition [facility] Pathology & Laboratory Medicine - [address] [address] Outr Resulting Lab, Provider Social History Tobacco [...] 0.0 - 6.5 ng/mL 12/02/2021 17:18 EST [facility] Blood VENOUS BLOOD / Unknown 12/02/2021 7:48 EST 12/02/2021 15:54 EST Narrative [facility] - 12/02/2021 17:18 EST NOTE: Serum PSA concentration should not be interpreted as absolute evidence for the presence or absence of malignant disease. Assayed on Siemens ADVIA Xmyboxaur XPT using chemiluminescent technology.??Values obtained by using different assay methods cannot be used interchangeably. Provider Outr Resulting Lab CHEMISTRY & BLOOD GAS ORDERABLES [facility] [address] [place] [address] documented in this encounter Visit Diagnoses Not on filedocumented in this encounter Care Teams Jewelry Store Manager Relationship Specialty Start Date End Date Unknown, ProviderMD PCP - General 11/10/15 Unknown, ProviderMD 11/10/15 documented as of this encounter
--- OUTSIDE RECORDS SUMMARY | 2024-09-25 09:13 | XMS_ITS | Encounter Summary ---
Author Organization [facility] Address [address] [place] [address] Care Team Providers Care Regional Production Manager Name Role Phone Unknown, Provider Primary Care Provider [phone] Unknown, Provider Unavailable [phone] Encounter Details Date Type Department Care Team (Late st Contact Info) Description 02/06/2022 Lab Requisition [facility] Pathology & Laboratory Medicine - [address] [address] Outr Resulting Lab, Provider Social History Tobacco [...] 0.0 - 6.5 ng/mL 02/06/2022 18:58 EDT [facility] Blood VENOUS BLOOD / Unknown 02/06/2022 10:34 EDT 02/06/2022 17:03 EDT Narrative [facility] - 02/06/2022 18:58 EDT NOTE: Serum PSA concentration should not be interpreted as absolute evidence for the presence or absence of malignant disease. Assayed on Siemens ADVIA Gistaur XPT using chemiluminescent technology.??Values obtained by using different assay methods cannot be used interchangeably. Provider Outr Resulting Lab CHEMISTRY & BLOOD GAS ORDERABLES [facility] [address] [place] [address] documented in this encounter Visit Diagnoses Not on filedocumented in this encounter Care Teams Regional Production Manager Relationship Specialty Start Date End Date Unknown, ProviderMD PCP - General 11/10/15 Unknown, ProviderMD 11/10/15 documented as of this encounter
--- OUTSIDE RECORDS SUMMARY | 2024-09-25 09:13 | XMS_ITS | Encounter Summary ---
Author Organization [facility] Address [facility] [place] [address] Care Team Providers Care Drop Pit Worker Name Role Phone Yesy Nagy APRN Primary Care Provider Encounter Details Date Type Department Care Team (Late st Contact Info) Description 04/30/2024 [place] [address] Brittni Hamilton Social History Tobacco [...] ok'd a TH visit for today - vm was full documented in this encounter Plan of Treatment Upcoming Encounters Date Type Department Care Team (Late st Contact Info) Description 09/25/2024 3:15 PM EDT Office [place] [address] Mika Quiroga MD [facility] [place] [address] Obdulia Coleman MD [facility] [place] [address] documented as of this encounter Goals Goal Patient Goal Type Associated Problems Recent Progress Patient-Stated? Author DH Self-Management Patient Facing Action Plan No Danica Taylor, [facility] Note: Judson Robe Patel Jr. Is hoping to decrease his prednisone dosage and keep pain levels at a minimum. He is hoping that Actemra will be able to keep him walking since before prednisone he had a hard time standing up and walking around. documented as of this encounter Visit Diagnoses Not on filedocumented in this encounter Care Teams Drop Pit Worker Relationship Specialty Start Date End Date Yesy Nagy APRN [address] [place] [address] PCP - General Geriatric Medicine 08/02/22 documented as of this encounter
--- OUTSIDE RECORDS SUMMARY | 2024-09-25 09:13 | XMS_ITS | Encounter Summary ---
Author Organization [facility] Address [facility] [place] [address] Care Team Providers Care Toe Puller Name Role Phone Yesy Nagy APRN Primary Care Provider [phone] Encounter Details Date Type Department Care Team (Latest Contact Info) Description 09/18/2023 4:00 PM EDT TH Visit (TeleHealth) [place] [phone] Ananya Payan DO [facility] [place] [address] GCA (giant cell arteritis) Social History Tobacco [...] by Ananya Payan DO or the rooming rehabilitation assistant as documented in their note. This [...] ESR CRP -We will obtain records from [facility] from recent admission to review -Recommend DEXA scan for osteoporosis due to long-term steroid use -Follow-up in 3 months Patient was discussed with Dr. Andres Payan DO Rheumatology Fellow Pager: [phone] documented in this encounter Plan of Treatment Upcoming Encounters Date Type Department Care Team (Late st Contact Info) Description 09/25/2024 3:15 PM EDT Office [place] [address] Mika Quiroga MD [facility] [place] [address] Obdulia Coleman MD [facility] [place] [address] documented as of this encounter Goals Goal Patient Goal Type Associated Problems Recent Progress Patient-Stated? Author DH Self-Management Patient Facing Action Plan No Danica Taylor, [facility] Note: Judson Patel Jr. Is hoping to [...] arteritis documented in this encounter Care Teams Toe Puller Relationship Specialty Start Date End Date Yesy Nagy APRN [address] [place] [address] PCP - General Geriatric Medicine 08/02/22 documented as of this encounter
--- OUTSIDE RECORDS SUMMARY | 2024-09-25 09:13 | XMS_ITS | Encounter Summary ---
Author Organization [facility] Address [address] [place] [address] Care Team Providers Care Garbage Pick Up Man Name Role Phone Unknown, Provider Primary Care Provider [phone] Unknown, Provider Unavailable [phone] Encounter Details Date Type Department Care Team (Late st Contact Info) Description 08/18/2022 Lab Requisition [facility] Pathology & Laboratory Medicine - [address] [address] Outr Resulting Lab, Provider Social History Tobacco [...] <3.1 See Note mIU/mL 08/21/2022 9:39 EDT [facility] Comment: Reference Range for Hep B Surface Ab, Quant: Positive: >= 10.0 mIU/mL Negative: ??< 10.0 mIU/mL Patient is presumed to not be immune to infection with Hepatitis B Virus. Hep B Surface Ab, Qualitative Negative See Note 08/21/2022 9:39 EDT [facility] Comment: Reference Range for Hep B Surface Ab, Qual: Unvaccinated: ??Negative Vaccinated: ??Positive Blood VENOUS BLOOD / Unknown 08/18/2022 9:08 EDT 08/18/2022 18:19 EDT Provider Outr Resulting Lab CHEMISTRY & BLOOD GAS ORDERABLES Performing Organization Address City/[facility]/ZIP Co de Phone Number [facility] [address] [place] [address] * HEPATITIS B CORE ANTIBODY (TOTAL) (08/18/2022 9:08 EDT) Hepatitis B Core Ab, Total Negative Negative 08/21/2022 10:23 EDT [facility] Blood VENOUS BLOOD / Unknown 08/18/2022 9:08 EDT 08/18/2022 18:19 EDT Provider Outr Resulting Lab CHEMISTRY & BLOOD GAS ORDERABLES Performing Organization Address [facility] Co de Phone Number [facility] [address] [place] [address] * HEPATITIS B SURFACE ANTIGEN (08/18/2022 9:08 EDT) Hep B Surface Ag Negative Negative 08/21/2022 9:36 EDT [facility] Blood VENOUS BLOOD / Unknown 08/18/2022 9:08 EDT 08/18/2022 18:19 EDT Provider Outr Resulting Lab CHEMISTRY & BLOOD GAS ORDERABLES Performing Organization Address [facility]/ZIP Co de Phone Number [facility] [address] [place] [address] * HEPATITIS C AB W REFLEX TO HCV RNA BY PCR (08/18/2022 9:08 EDT) Hep C Antibody Negative Negative 08/21/2022 10:26 EDT [facility] Blood VENOUS BLOOD / Unknown 08/18/2022 9:08 EDT 08/18/2022 18:19 EDT Provider Outr Resulting Lab CHEMISTRY & BLOOD GAS ORDERABLES Performing Organization Address City/State/[facility] Co de Phone Number [facility] [address] [place] [address] documented in this encounter Visit Diagnoses Not on filedocumented in this encounter Care Teams Garbage Pick Up Man Relationship Specialty Start Date End Date Unknown, Provider, PCP - General 11/10/15 Unknown, ProviderMD 11/10/15 documented as of this encounter
--- OUTSIDE RECORDS SUMMARY | 2024-09-25 09:13 | XMS_ITS | Encounter Summary ---
Author Organization Count Includes [facility] [place] [address] Care Team Providers Care Sales Floor Associate Name Role Phone Yesy Nagy SEED SERVICE ADVISOR Primary Care Provider Encounter Details Date Type [...] 3:15 PM EDT Office Visit Rheumatology at [place] [phone] Mika Quiroga MD [facility] [place] [address] Obdulia Coleman MD [facility] [place] [address] documented as of this encounter Goals Goal Patient Goal Type Associated Problems Recent Progress Patient-Stated? Author DH Self-Management Patient Facing Action Plan No Danica Taylor, [facility] Note: Judson Patel Jr. Is hoping to decrease his prednisone dosage and keep pain levels at a minimum. He is hoping that Actemra will be able to keep him walking since before prednisone he had a hard time standing up and walking around. documented as of this encounter Visit Diagnoses Not on filedocumented in this encounter Care Teams Sales Floor Associate Relationship Specialty Start Date End Date Yesy Nagy APRN [address] [place] [address] PCP - General Geriatric Medicine 08/02/22 documented as of this encounter
--- OUTSIDE RECORDS SUMMARY | 2024-09-25 09:13 | XMS_ITS | Encounter Summary ---
Author Organization [facility] Address [facility] [place] [address] Care Team Providers Care Crossing Tender Name Role Phone Yesy Nagy APRN Primary Care Provider [phone] Reason for Visit * Reason Onset Date Comments Other 05/10/2023 Encounter Details Date Type Department Care Team (Late st Contact Info) Description 05/10/2023 Telephone [place] [phone] Dayna Paez RN Other Social History Tobacco [...] 3:15 PM EDT Office [place] [phone] Mika Quiroga MD [facility] [address] Obdulia Coleman MD [facility] [place] [address] documented as of this encounter Goals Goal Patient Goal Type Associated Problems Recent Progress Patient-Stated? Author DH Self-Management Patient Facing Action Plan Danica Casillas, [facility] Note: Judson Nagel Jorge Funk Is hoping to decrease his prednisone dosage and keep pain levels at a minimum. He is hoping that Actemra will be able to keep him walking since before prednisone he had a hard time standing up and walking around. documented as of this encounter Visit Diagnoses Not on filedocumented in this encounter Care Teams Crossing Tender Relationship Specialty Start Date End Date Yesy Nagy APRN [address] [place] [address] PCP - General Geriatric Medicine 08/02/22 documented as of this encounter
--- OUTSIDE RECORDS SUMMARY | 2024-09-25 09:13 | XMS_ITS | Encounter Summary ---
Author Organization [facility] Address [facility] [place] [address] Care Team Providers Care Architecture Faculty Member Name Role Phone Yesy Nagy APRN Primary Care Provider [phone] Encounter Details Date Type Department Care Team (Late st Contact Info) Description 05/31/2023 9:30 AM EDT Office [place] [phone] Ananya Payan, [facility] [place] [address] GCA (giant cell arteritis); Medication monitoring encounter; PMR (polymyalgia rheumatica); FPC current use of systemic steroids Social History [...] Dr. Neel Payan DO Rheumatology Fellow Pager: [phone] documented in this encounter Plan of Treatment Upcoming Encounters Date Type Department Care Team (Late st Contact Info) Description 09/25/2024 3:15 PM EDT Office [place] [address] Mika Quiroga MD [facility] [place] [address] Obdulia Coleman MD [facility] [place] [address] documented as of this encounter Goals Goal Patient Goal Type Associated Problems Recent Progress Patient-Stated? Author DH Self-Management Patient Facing Action Plan Danica Casillas, [facility] Note: Judson Patel . Is hoping to decrease his prednisone dosage and keep pain levels at a minimum. He is hoping that Actemra will be able to keep him walking since before prednisone he had a hard time standing up and walking around. documented as of this encounter Results * Sedimentation rate (05/31/2023 10:18 AM EDT) Sedimentation Rate Automated 4 3 - 46 mm/hr [facility] Comment: Effective November 05, 2019 new capillary photometric technology has resulted in a change in reference ranges. It is recommended that each ESR result be reviewed with its own age appropriate reference range. Blood 05/31/2023 10:1 8 AM EDT 05/31/2023 10:37 AM EDT Narrative Resulting Agency Comment Spec In Lab Linda Shaikh DO HEMATOLOGY ORDERAB LES Performing Organization Address City/[facility]/ZIP Co de Phone Number [facility] [place] [address] * CRP, acute inflammation (05/31/2023 10:18 AM EDT) C-Reactive Protein <3.0 <=4.9 mg/L [facility] Blood 05/31/2023 10:1 8 AM EDT 05/31/2023 10:37 AM EDT Narrative Resulting Agency Comment Spec In Lab Linda Shaikh DO CHEMISTRY ORDERABL ES Performing Organization Address 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
--- OUTSIDE RECORDS SUMMARY | 2024-09-25 09:13 | XMS_ITS | Encounter Summary ---
Author Organization [facility] Address [facility] [place] [address] Care Team Providers Care Overhauler Bus Truck Name Role Phone Yesy Nagy APRN Primary Care Provider Reason for Referral * Consultation (Routine) - Closed Specialty Diagnoses / Procedures Referred By Contac t Referred To Contact Neurology Diagnoses GCA (giant cell arteritis) Obdulia Coleman MD [facility] [place] [address] [facility] [address] [place] [address] Referral ID Status Reason Start Date Expiration Date V isits Requested Visits Authorized [id number] Closed Consult, Test & Treat 07/14/2024 07/14/2025 1 1 Encounter Details Date Type Department Care Team (Late st Contact Info) Description 07/14/2024 10:30 AM EDT Office [place] [phone] Obdulia Coleman MD [facility] [place] [address] GCA (giant cell arteritis); Neuropathy; Prediabetes Social History Tobacco Use Types Packs/Day Years [...] EDT Temperature 36.8 ??C (98.3 ??F) 07/14/2024 10:31 AM E DT Respiratory Rate - - Oxygen Saturation 95% 07/14/2024 10:31 AM EDT Inhaled Oxygen Concentration - - Weight - - Height - - Body Mass Index - - documented in this encounter Patient Instructions * Patient Instructions* Obdulia Coleman MD - 07/14/2024 10:30 AM EDT -We will follow up with labs -Start taking Methotrexate 10 mg once a week -Start taking 1 tablet of folic acid daily -Continue taking Prednisone 7.5 mg daily for 4 weeks followed by 7 mg daily for 2 weeks followed by6 mg daily for 2 weeks followed by 5 mg daily for 2 weeks folllowed by taper by 1 mg every 2 weeks documented in this encounter Progress Notes * Obdulia Coleman MD - 07/14/2024 10:30 AM EDT Rheumatology Outpatient Telephone Follow Up Note PCP: MALACHI Vinson Jr. is a 73 y.o. male who we are seeing for the continuing management of GCA (no prior temporal artery biopsy) with PMR. Last telehealth visit to rheumatology on: 01/17/2024 Rheum History: #GCA with PMR -Symptoms began in April 2022 with generalized body pain, intermittent headaches, unsteady gait,sed rate of 60, CRP 20 -We initially evaluated him on 2021.He was already on prednisone for over 2 months, therefore biopsy was not pursued as it would likely be negative. - GCA diagnosis was based on elevated inflammatory markers, age >50 , headache typical for GCA and vision changes (used to see yellow/white lines, resolved later) -Started prednisone 60mg with improvement of symptoms and inflammatory markers. - Was on tocilizumab for 6 weeks but it was stopped on 03/30/2023 as it was not helpful to control his symptoms and had repeated finger infection -Due to symptoms of disequilibrium and gait imbalance (since 04/2022) ---> visited neurology---->MRI of the brain unremarkable--->gait imbalance thought to be due to possible parkinson's disease, but pt did not have further follow up Interval History: - Reports that he developed headache, joint symptoms and vision changes (saw white lines) while on 5 mg prednisone. As per him,Prednisone 7.5 mg works best for him. -Currently denies any headache, joint pain, morning stiffness, vision changes or jaw claudication - He is more concerned about his balance mainly on walking. As per him, balance problem started since he was diagnosed with GCA on 04/2022. -Reportedly he visited neurology and MRI brain was done which was normal. He was told that he couldhave Parkinson's disease however he does not think that his symptoms match with Parkinson's.. He does not have further follow-up with neurology ROS (positives in bold): Gen: no fevers, no chills, no night sweats Pulm: no SOB CV: no CP Abd: no abd pain, no nausea, no vomiting, no diarrhea MSK: see HPI Labs/Studies: 05/31/23 -Hb: 14.2, ESR: 4, CRP<3 -Cr: 1.15 -LFT: normal -ITA : neg -BEBO panel negative except for SCL 70 ab of 7.6 (Normal range: <1) Assessment/Plan: 72-year-old male with past medical history of hypertension, BPH, peripheral neuropathy presenting for follow-up of GCA/PMR. # GCA with PMR -Diagnosed on 07/2022 based on elevated inflammatory markers, age >50 , headache typical for GCAand vision changes (used to see yellow/white lines, resolved later) -Started on tapering dose of prednisone 60mg with improvement of symptoms and inflammatory markers. - Was on tocilizumab for 6 weeks but it was stopped on 03/30/2023 as it was not helpful to control his symptoms and had repeated finger infection -Reports that he developed headache, joint symptoms and vision changes (saw white lines) while on 5mg prednisone. Prednisone 7.5 mg works best for him. -Currently denies any headache, joint pain, morning stiffness, vision changes or jaw claudication Plan - We will follow up with labs -Start taking Methotrexate 10 mg once a week -Start taking 1 tablet of folic acid daily -Continue taking Prednisone 7.5 mg daily for 4 weeks followed by 7 mg daily for 2 weeks followed by6 mg daily for 2 weeks followed by 5 mg daily for 2 weeks folllowed by taper by 1 mg every 2 weeks # Gait imbalance/dysequilibrium -Symptoms of disequilibrium and gait imbalance started around the time of dx of GCA 04/2022 - He recently visited neurology at [facility]---->MRI of the brain unremarkable--->gait imbalance thought to be due to possible parkinson's disease, but pt did not have further follow up Plan -Referral [facility] neurology provided -We will follow-up with vitamin B12 level, SPEP, UPEP Patient was discussed and seen with Dr. Kimber Coleman MD Rheumatology Fellow Pager # [phone] * Jennifer Soares CCMA - 07/14/2024 10:30 AM EDT Pt states there is no pain just difficulty in walking and is off balance * Mika Quiroga MD - 07/14/2024 10:30 AM EDT The patient's history was reviewed, and I interviewed and examined the patient with Dr. Coleman, the rheumatology fellow. History of present illness and diagnosis discussed. Chief complaint and review of systems reviewed. Physical exam findings, serologic testing, and diagnostic imaging reviewed. Iagree with her summary, findings, diagnostic and therapeutic plans. Steroid dependent GCA. No response with tocilizumab. Will initiate MTX as a steroid sparing agent. Mika Quiroga MD Staff Lidding Machine Operator documented in this encounter Plan of Treatment Upcoming Encounters Date Type Department Care Team (Late st Contact Info) Description 09/25/2024 3:15 PM EDT Office [place] [address] Mika Quiroga MD [facility] [place] [address] Obdulia Coleman MD [facility] [place] [address] Scheduled Orders Name Type Priority Associated Diagnoses Orde r Schedule CBC (with Diff) Lab Routine GCA (giant cell arteritis) Every 3 months for 4 Occurrences starting 07/14/2024 until 07/14/2025 Comprehensive metabolic panel Lab Routine GCA (giant cell arteritis) Every 3 months for 5 Occurrences starting 07/14/2024 until 10/14/2024 Sedimentation rate Lab Routine GCA (giant cell arteritis) Expected: 10/14/2024 (Approximate), Expires: 04/15/2025 CRP, acute inflammation Lab Routine GCA (giant cell arteritis) Expected: 10/14/2024, Expires: 04/15/2025 Scheduled Referrals Name Type Priority Associated Diagnoses Orde r Schedule Referral to Neurology Outpatient Referral Routine GCA (giant cell arteritis) Ordered: 07/14/2024 documented as of this encounter Goals Goal Patient Goal Type Associated Problems Recent Progress Patient-Stated? Author DH Self-Management Patient Facing Action Plan No Danica Taylor, [facility] Note: Judson Patel Is hoping to decrease his prednisone dosage and keep pain levels at a minimum. He is hoping that Actemra will be able to keep him walking since before prednisone he had a hard time standing up and walking around. documented as of this encounter Results * (ABNORMAL) Hemoglobin A1c (07/14/2024 11:53 AM EDT) Hemoglobin A1c 7.7(H) 4.3 - 5.6 % 07/14/2024 12:34 PM EDT [facility] Comment: Per ADA guidelines, [...] red blood cell turnover may not be entry level account representative of glycemic control. Reference Interval: 4.3 - 5.6% 5.7 - 6.4%: Consistent with prediabetes >=6.5%: Consistent with diagnosis of diabetes mellitus Estimated Average Glucose 07/14/2024 12:34 PM EDT [facility] Comment:Not Calculated. Blood VENOUS BLOOD SPECIMEN / Unknown Venipuncture / Unknown 07/14/2024 11:53 AM EDT 07/14/2024 11:53 AM EDT Narrative [facility] - 07/14/2024 12:34 PM EDT Estimated average glucose (eAG) is calculated from the equation described in: Alejandro BRAGA, Dayana J, Jelly R, et al. ??Translating the A1C assay into estimated average glucose values. ??Diabetes Care 2008:31(8):5423-3729. Additional resources are available on the ADA website (diabetes.org). Mika Quiroga MD CHEMISTRY ORDERABLES [facility] [place] [address] * (ABNORMAL) Vitamin B12 (07/14/2024 11:53 AM EDT) Vitamin B12 1,260(H) 232 - 1,245 pg/mL 07/14/2024 12:52 PM EDT [facility] Blood VENOUS BLOOD SPECIMEN / Unknown Venipuncture / Unknown 07/14/2024 11:53 AM EDT 07/14/2024 11:53 AM EDT Mika Quiroga MD CHEMISTRY ORDERABLES [facility] [place] [place] [address] * (ABNORMAL) CRP, acute inflammation (07/14/2024 11:53 AM EDT) C-Reactive Protein 5.6(H) <=4.9 mg/L 07/14/2024 12:38 PM EDT [facility] Blood VENOUS BLOOD SPECIMEN / Unknown Venipuncture / Unknown 07/14/2024 11:53 AM EDT 07/14/2024 11:53 AM EDT Mika Quiroga MD CHEMISTRY ORDERABLES Performing Organization Address City/[facility]/ZIP Co de Phone Number [facility] [place] [place] [address] * (ABNORMAL) Sedimentation rate (07/14/2024 11:53 AM EDT) Sedimentation Rate Automated 57(H) 3 - 46 mm/hr 07/14/2024 12:42 PM EDT [facility] Blood VENOUS BLOOD SPECIMEN / Unknown Venipuncture / Unknown 07/14/2024 11:53 AM EDT 07/14/2024 11:53 AM EDT Mika Quiroga MD HEMATOLOGY ORDERABLE S [facility] [place] [place] [address] * (ABNORMAL) Comprehensive metabolic panel (07/14/2024 11:53 AM EDT) Glucose 199 65 - 199 mg/dL 07/14/2024 12:38 PM EDT [facility] Comment:Glucose Concentratio n >=200 mg/dL plus symptoms is consistent with Diabetes Mellitus. Blood Urea Nitrogen 18 10 - 20 mg/dL 07/14/2024 12:38 PM EDT [facility] Creatinine 1.22 0.80 - 1.50 mg/dL 07/14/2024 12:38 PM EDT [facility] Sodium 137 135 - 145 mMol/L 07/14/2024 12:38 PM EDT [facility] Potassium 4.5 3.5 - 5.0 mMol/L 07/14/2024 12:38 PM EDT [facility] Chloride 97(L) 98 - 107 mMol/L 07/14/2024 12:38 PM [facility] Carbon Dioxide 24 22 - 31 mMol/L 07/14/2024 12:38 PM [facility] Anion Gap 16(H) 5 - 15 mMol/L 07/14/2024 12:38 PM [facility] Calcium 10.2 8.5 - 10.5 mg/dL 07/14/2024 12:38 PM [facility] Protein, Total 7.1 6.1 - 8.0 g/dL 07/14/2024 12:38 PM [facility] Albumin 4.2 3.2 - 5.2 g/dL 07/14/2024 12:38 PM [facility] Aspartate Aminotransferase 13 <=39 unit/L 07/14/2024 12:38 PM [facility] Alanine Aminotransferase 15 0 - 55 unit/L 07/14/2024 12:38 PM [facility] Alkaline Phosphatase 71 40 - 130 unit/L 07/14/2024 12:38 PM [facility] Bilirubin, Total 0.4 <=1.3 mg/dL 07/14/2024 12:38 PM [facility] Est Glomerular Filtration Rate - Male 62 mL/min/1. 73 m?? 07/14/2024 12:38 PM [facility] Comment: This patient's estimated GFR [...] Foundation Fasting Status No 07/14/2024 12:38 PM [facility] Blood VENOUS BLOOD SPECIMEN / Unknown Venipuncture / Unknown 07/14/2024 11:53 AM EDT 07/14/2024 11:53 AM EDT Mika Quiroga MD CHEMISTRY ORDERABLES [facility] [place] [address] * (ABNORMAL) CBC (with Diff) (07/14/2024 11:53 AM EDT) White Blood Cell 16.07(H) 4.00 - 9.50 x10(3)/mc L 07/14/2024 12:42 PM EDT [facility] Red Blood Cell 4.42(L) 4.58 - 5.54 x10(6)/mc L 07/14/2024 12:42 PM EDT [facility] Hemoglobin 13.7 13.7 - 16.5 g/dL 07/14/2024 12:42 PM EDT [facility] Hematocrit 40.4(L) 40.5 - 48.5 % 07/14/2024 12:42 PM EDT [facility] Mean Cell Volume 91.4 82.9 - 93.1 fL 07/14/2024 12:42 PM EDT [facility] Mean Cell Hemoglobin 31.0 27.5 - 32.1 pg 07/14/2024 12:42 PM EDT [facility] Mean Cell Hemoglobin Concentration 33.9 32.0 - 35.7 g/dL 07/14/2024 12:42 PM EDT [facility] Platelet 256 145 - 357 x10(3)/mc L 07/14/2024 12:42 PM EDT [facility] Mean Platelet Volume 9.8 7.6 - 12.9 fL 07/14/2024 12:42 PM EDT [facility] RDW Standard Deviation 44.5 36.0 - 45.0 fL 07/14/2024 12:42 PM EDT [facility] RDW coefficient of variation 13.2 11.4 - 13.8 % 07/14/2024 12:42 PM [facility] NRBC% auto 0.0 % 07/14/2024 12:42 PM [facility] NRBC Absolute 0.00 0.00 - 0.00 x10(3)/mc L 07/14/2024 12:42 PM [facility] Neutrophil % 83.2 % 07/14/2024 12:42 PM [facility] Neutrophil Absolute (ANC) - Automated 13.36(H) 1.70 - 6.10 x10(3)/mc L 07/14/2024 12:42 PM [facility] Lymph % 10.8 % 07/14/2024 12:42 PM [facility] Lymph Absolute 1.74 0.90 - 3.20 x10(3)/mc L 07/14/2024 12:42 PM [facility] Monocyte % 4.2 % 07/14/2024 12:42 PM [facility] Monocyte Absolute 0.68 0.30 - 0.90 x10(3)/mc L 07/14/2024 12:42 PM [facility] Eos % 0.2 % 07/14/2024 12:42 PM [facility] Eos Absolute 0.03 0.00 - 0.40 x10(3)/mc L 07/14/2024 12:42 PM [facility] Basophil % 0.2 % 07/14/2024 12:42 PM [facility] Baso Absolute 0.04 0.00 - 0.10 x10(3)/mc L 07/14/2024 12:42 PM [facility] Immature Gran % 1.4 % 12:42 PM [facility] Immature Gran Absolute 0.22(H) 0.00 - 0.04 x10(3)/mc L 07/14/2024 12:42 PM EDT [facility] Blood VENOUS BLOOD SPECIMEN / Unknown Venipuncture / Unknown 07/14/2024 11:53 AM EDT 07/14/2024 11:53 AM EDT Mika Quiroga MD HEMATOLOGY ORDERABLE S Performing Organization Address City/State/[facility] Co de Phone Number [facility] [place] [address] documented in this encounter Visit Diagnoses Diagnosis GCA (giant cell arteritis) Giant cell arteritis Neuropathy Mononeuritis of unspecified site Prediabetes Other abnormal glucose documented in this encounter Care Teams Overhauler Bus Truck Relationship Specialty Start Date End Date Yesy Nagy APRN [address] [place] [address] PCP - General Geriatric Medicine 08/02/22 documented as of this encounter
--- OUTSIDE RECORDS SUMMARY | 2024-09-25 09:13 | XMS_ITS | Encounter Summary ---
[place] [address] Care Team Providers Care Banquet Bartender Name Role Phone Yesy Nagy APRN Primary Care Provider [phone]- [phone] Reason for Visit * Reason Comments Medication Management Encounter Details Date Type Department Care Team (Late st Contact Info) Description 05/11/2023 Specialty [place] [phone] Homa March RPH Social History Tobacco Use [...] (CMM) Judson Patel Jr. [address] [facility] [address] Telephone Information: Work Phone Not on file. [...] were made at the appointment and that [facility] isproviding recommendations (summary located at top of [...] 3:15 PM EDT Office [place] [address] Mika Quiroga MD [facility] [place] [address] Obdulia Coleman MD [facility] [place] [address] documented as of this encounter Goals Goal Patient Goal Type Associated Problems Recent Progress Patient-Stated? Author DH Self-Management Patient Facing Action Plan No Danica Taylor, [facility] Note: Judson Patel Jr. Is hoping to decrease his prednisone dosage and keep pain levels at a minimum. He is hoping that Actemra will be able to keep him walking since before prednisone he had a hard time standing up and walking around. documented as of this encounter Visit Diagnoses Not on filedocumented in this encounter Care Teams Banquet Bartender Relationship Specialty Start Date End Date Yesy Nagy APRN [address] [place] [id number] PCP - General Geriatric Medicine 08/02/22 documented as of this encounter
--- OUTSIDE RECORDS SUMMARY | 2024-09-25 09:13 | XMS_ITS | Encounter Summary ---
Author Organization [facility] [place] [address] Care Team Providers Care Office Associate Name Role Phone Yesy Nagy APRN Primary Care Provider [phone]- [phone] Reason for Visit * Reason Onset Date Comments Triage 09/10/2023 Encounter Details Date Type Department Care Team (Late st Contact Info) Description 09/10/2023 Telephone [place] [phone] Dia Rosario RN Triage Social History Tobacco Use Types Packs/Day Years [...] other day that crept up from his baptism over the top of his head. Pt [...] - 09/10/2023 9:59 AM EDT Copied from [facility] #[id number]. Topic: Specialty Dept CRMs - Triage >> [...] 3:15 PM EDT Office [place] [address] Mika Quiroga MD [facility] [place] [address] Obdulia Coleman MD [facility] [place] [address] documented as of this encounter Goals Goal Patient Goal Type Associated Problems Recent Progress Patient-Stated? Author DH Self-Management Patient Facing Action Plan No Danica Taylor, [facility] Note: Judson Nagel Jorge Cisse. Is hoping to decrease his prednisone dosage and keep pain levels at a minimum. He is hoping that Actemra will be able to keep him walking since before prednisone he had a hard time standing up and walking around. documented as of this encounter Visit Diagnoses Not on filedocumented in this encounter Care Teams Office Associate Relationship Specialty Start Date End Date Yesy Nagy APRN [address] [place] [address] PCP - General Geriatric Medicine 08/02/22 documented as of this encounter
--- OUTSIDE RECORDS SUMMARY | 2024-09-25 09:13 | XMS_ITS | Encounter Summary ---
Author Organization [facility] Address [facility] [place] [address] Care Team Providers Care Steffen House Supervisor Name Role Phone Yesy Nagy APRN Primary Care Provider Encounter Details Date Type Department Care Team (Latest Contact Info) Description 07/14/2024 12:55 PM EDT Laboratory Appointment Lab [address] [place] [id number] GCA (giant cell arteritis); Neuropathy; Prediabetes Social [...] 3:15 PM EDT [place] [address] Mika Quiroga MD [facility] [place] [address] Obdulia Coleman MD [facility] [place] [address] documented as of this encounter Goals Goal Patient Goal Type Associated Problems Recent Progress Patient-Stated? Author BRYAN Self-Management Patient Facing Action Plan No Danica Taylor, [facility] Note: Judson Patel Jr. Is hoping to decrease his prednisone dosage and keep pain levels at a minimum. He is hoping that Karlene will be able to keep him walking since before prednisone he had a hard time standing up and walking around. documented as of this encounter Procedures Procedure Name Priority Date/Time Associated Diagnosis Comments PROTEIN, TOTAL ELECTROPHORESIS (PERFROMABLE) Routine 07/14/2024 11:53 AM EDT GCA (giant cell arteritis) PEP, SERUM (PERFORMABLE) Routine 07/14/2024 11:53 AM EDT GCA (giant cell arteritis) PROTEIN, URINE ELECTROPHORESIS (PERFORMABLE) Routine 07/14/2024 11:53 AM EDT GCA (giant cell arteritis) PEP, URINE RANDOM (PERFORMABLE) Routine 07/14/2024 11:53 AM EDT GCA (giant cell arteritis) CRP, ACUTE INFLAMMATION Routine 07/14/20 24 11:53 AM EDT GCA (giant cell arteritis) PROTEIN ELECTROPHORESIS, URINE, RANDOM Routine 07/14/2024 11:53 AM EDT GCA (giant cell arteritis) SEDIMENTATION RATE Routine 07/14/2024 11 :53 AM EDT GCA (giant cell arteritis) CBC (WITH DIFF) Routine 07/14/2024 11:53 AM EDT GCA (giant cell arteritis) PROTEIN ELECTROPHORESIS, SERUM Routine 07/14/2024 11:53 AM EDT GCA (giant cell arteritis) HEMOGLOBIN A1C Routine 07/14/2024 11:53 AM EDT Neuropathy Prediabetes VITAMIN B12 Routine 07/14/2024 11:53 AM EDT GCA (giant cell arteritis) COMPREHENSIVE METABOLIC PANEL Routine 07/14/2024 11:53 AM EDT GCA (giant cell arteritis) documented in this encounter Results * Protein, Urine Electrophoresis (07/14/2024 11:53 AM EDT) Urine URINE SPECIMEN / Unknown Non Blood Collection / Unknown 07/14/2024 11:53 AM EDT 07/14/2024 11:53 AM EDT Mika Quiroga MD URINE ORDERABLES Performing Organization Address City/[facility]/ZIP Co de Phone Number [facility] [place] [address] * (ABNORMAL) PEP, Urine Random (07/14/2024 11:53 AM EDT) Albumin, Urine Electrophoresis 70 % total 07/15/2024 3:[address] [facility] Globulin, Random Urine 30 % total 07/15/2024 3:[address] [facility] M1 Band, Urine 07/15/2024 3:[address] [facility] Comment:There is no evidence of clonal free light chains in this patient's urine sample. Protein, Urine 23(H) 0 - 12 mg/dL 07/15/2024 3:[address] [facility] Urine URINE SPECIMEN / Unknown Non Blood Collection / Unknown 07/14/2024 11:53 AM EDT 07/14/2024 11:53 AM EDT Mika Quiroga MD URINE ORDERABLES Performing Organization Address [facility] Co de Phone Number [facility] [place] [address] * Protein, Serum Electrophoresis (07/14/2024 11:53 AM EDT) Blood VENOUS BLOOD SPECIMEN / Unknown Venipuncture / Unknown 07/14/2024 11:53 AM EDT 07/14/2024 11:53 AM EDT Mika Quiroga MD URINE ORDERABLES Performing Organization Address City/[facility]/ZIP Co de Phone Number [facility] [place] [address] * (ABNORMAL) PEP, Serum (07/14/2024 11:53 AM EDT) Protein, Total 6.6 6.1 - 8.0 g/dL 07/15/2024 3:[address] [facility] Albumin Electrophoresis 4.17 3.20 - 5.20 g/dL 07/15/2024 3:[address] [facility] Alpha 1 Globulin 0.17 0.10 - 0.30 g/dL 07/15/2024 3:[address] [facility] Alpha 2 Globulin 0.91(H) 0.40 - 0.90 g/dL 07/15/2024 3:[address] [facility] Beta Globulin 0.69 0.50 - 1.00 g/dL 07/15/2024 3:[facility] Gamma Globulin 0.66 0.50 - 1.30 g/dL 07/15/2024 3:[address] [facility] M1 Band 07/15/2024 3:[address] [facility] Comment:None Detected Blood VENOUS BLOOD SPECIMEN / Unknown Venipuncture / Unknown 07/14/2024 11:53 AM EDT 07/14/2024 11:53 AM EDT Mika Quiroga MD URINE ORDERABLES [facility] [place] [address] * (ABNORMAL) Hemoglobin A1c (07/14/2024 11:53 AM EDT) [facility] Hemoglobin A1c 7.7(H) 4.3 - 5.6 % 07/14/2024 12:[address] [facility] Comment: Per ADA guidelines, without [...] red blood cell turnover may not be account services representative of glycemic control. Reference Interval: 4.3 - 5.6% 5.7 - 6.4%: Consistent with prediabetes >=6.5%: Consistent with diagnosis of diabetes mellitus Estimated Average Glucose 07/14/2024 12:[address] [facility] Comment:Not Calculated. Blood VENOUS BLOOD SPECIMEN / Unknown Venipuncture / Unknown 07/14/2024 11:53 AM EDT 07/14/2024 11:[address] [facility] - 07/14/2024 12:34 PM EDT Estimated average glucose (eAG) is calculated from the equation described in: Alejandro BRAGA, Dayana J, Jelly R, et al. ??Translating the A1C assay into estimated average glucose values. ??Diabetes Care 2008:31(8):3717-8974. Additional resources are available on the ADA website (diabetes.org). Mika Quiroga MD CHEMISTRY ORDERABLES Performing Organization Address City/[facility]/ZIP Co de Phone Number [facility] [place] [address] * (ABNORMAL) Vitamin B12 (07/14/2024 11:53 AM EDT) Vitamin B12 1,260(H) 232 - 1,245 pg/mL 07/14/2024 12:[address] [facility] Blood VENOUS BLOOD SPECIMEN / Unknown Venipuncture / Unknown 07/14/2024 11:53 AM EDT 07/14/2024 11:53 AM EDT Mika Quiroga MD CHEMISTRY ORDERABLES [facility] [place] [address] * (ABNORMAL) CRP, acute inflammation (07/14/2024 11:53 AM EDT) C-Reactive Protein 5.6(H) <=4.9 mg/L 07/14/2024 12:[address] [facility] Blood VENOUS BLOOD SPECIMEN / Unknown Venipuncture / Unknown 07/14/2024 11:53 AM EDT 07/14/2024 11:53 AM EDT Mika Quiroga MD CHEMISTRY ORDERABLES [facility] [place] [address] * (ABNORMAL) Sedimentation rate (07/14/2024 11:53 AM EDT) Sedimentation Rate Automated 57(H) 3 - 46 mm/hr 07/14/2024 12:[address] [facility] Blood VENOUS BLOOD SPECIMEN / Unknown Venipuncture / Unknown 07/14/2024 11:53 AM EDT 07/14/2024 11:53 AM EDT Mika Quiroga MD HEMATOLOGY ORDERABLE S [facility] [place] [address] * (ABNORMAL) Comprehensive metabolic panel (07/14/2024 11:53 AM EDT) Glucose 199 65 - 199 mg/dL 07/14/2024 12:[address] [facility] Comment:Glucose Concentratio n >=200 mg/dL plus symptoms is consistent with Diabetes Mellitus. Blood Urea Nitrogen 18 10 - 20 mg/dL 07/14/2024 12:[address] [facility] Creatinine 1.22 0.80 - 1.50 mg/dL 07/14/2024 12:[address] [facility] Sodium 137 135 - 145 mMol/L 07/14/2024 12:[address] [facility] Potassium 4.5 3.5 - 5.0 mMol/L 07/14/2024 12:[address] [facility] Chloride 97(L) 98 - 107 mMol/L 07/14/2024 12:38 PM [facility] Carbon Dioxide 24 22 - 31 mMol/L 07/14/2024 12:38 PM [facility] Anion Gap 16(H) 5 - 15 mMol/L 07/14/2024 12:38 PM [facility] Calcium 10.2 8.5 - 10.5 mg/dL 07/14/2024 12:38 PM [facility] Protein, Total 7.1 6.1 - 8.0 g/dL 07/14/2024 12:38 PM [facility] Albumin 4.2 3.2 - 5.2 g/dL 07/14/2024 12:38 PM [facility] Aspartate Aminotransferase 13 <=39 unit/L 07/14/2024 12:38 PM [facility] Alanine Aminotransferase 15 0 - 55 unit/L 07/14/2024 12:38 PM [facility] Alkaline Phosphatase 71 40 - 130 unit/L 07/14/2024 12:38 PM [facility] Bilirubin, Total 0.4 <=1.3 mg/dL 07/14/2024 12:38 PM [facility] Est Glomerular Filtration Rate - Male 62 mL/min/1. 73 m?? 07/14/2024 12:38 PM [facility] Comment: This patient's estimated GFR was [...] Foundation Fasting Status No 07/14/2024 12:38 PM [facility] Blood VENOUS BLOOD SPECIMEN / Unknown Venipuncture / Unknown 07/14/2024 11:53 AM EDT 07/14/2024 11:53 AM EDT Mika Quiroga MD CHEMISTRY ORDERABLES [facility] [place] [address] * (ABNORMAL) CBC (with Diff) (07/14/2024 11:53 AM EDT) White Blood Cell 16.07(H) 4.00 - 9.50 x10(3)/mc L 07/14/2024 12:[address] [facility] Red Blood Cell 4.42(L) 4.58 - 5.54 x10(6)/mc L 07/14/2024 12:[address] [facility] Hemoglobin 13.7 13.7 - 16.5 g/dL 07/14/2024 12:[address] [facility] Hematocrit 40.4(L) 40.5 - 48.5 % 07/14/2024 12:[address] [facility] Mean Cell Volume 91.4 82.9 - 93.1 fL 07/14/2024 12:[address] [facility] Mean Cell Hemoglobin 31.0 27.5 - 32.1 pg 07/14/2024 12:[address] [facility] Mean Cell Hemoglobin Concentration 33.9 32.0 - 35.7 g/dL 07/14/2024 12:[address] [facility] Platelet 256 145 - 357 x10(3)/mc L 07/14/2024 12:[address] [facility] Mean Platelet Volume 9.8 7.6 - 12.9 fL 07/14/2024 12:[address] [facility] RDW Standard Deviation 44.5 36.0 - 45.0 fL 07/14/2024 12:[address] [facility] RDW coefficient of variation 13.2 11.4 - 13.8 % 07/14/2024 12:42 [facility] NRBC% auto 0.0 % 07/14/2024 12:42 PM [facility] NRBC Absolute 0.00 0.00 - 0.00 x10(3)/mc L 07/14/2024 12:42 PM [facility] Neutrophil % 83.2 % 07/14/2024 12:42 PM [facility] Neutrophil Absolute (ANC) - Automated 13.36(H) 1.70 - 6.10 x10(3)/mc L 07/14/2024 12:42 PM [facility] Lymph % 10.8 % 07/14/2024 12:42 PM [facility] Lymph Absolute 1.74 0.90 - 3.20 x10(3)/mc L 07/14/2024 12:42 PM [facility] Monocyte % 4.2 % 07/14/2024 12:42 PM [facility] Monocyte Absolute 0.68 0.30 - 0.90 x10(3)/mc L 07/14/2024 12:42 PM [facility] Eos % 0.2 % 07/14/2024 12:42 PM [facility] Eos Absolute 0.03 0.00 - 0.40 x10(3)/mc L 07/14/2024 12:42 PM [facility] Basophil % 0.2 % 07/14/2024 12:42 PM [facility] Baso Absolute 0.04 0.00 - 0.10 x10(3)/mc L 07/14/2024 12:42 PM [facility] Immature Gran % 1.4 % 12:42 PM [facility] Immature Gran Absolute 0.22(H) 0.00 - 0.04 x10(3)/mc L 07/14/2024 12:42 PM [facility] Blood VENOUS BLOOD SPECIMEN / Unknown Venipuncture / Unknown 07/14/2024 11:53 AM EDT 07/14/2024 11:53 AM EDT Mika Quiroga MD HEMATOLOGY ORDERABLE S [facility] [place] [address] documented in this encounter Visit Diagnoses Diagnosis GCA (giant cell arteritis) Giant cell arteritis Neuropathy Mononeuritis of unspecified site Prediabetes Other abnormal glucose documented in this encounter Care Teams Steffen House Supervisor Relationship Specialty Start Date End Date Yesy Nagy [place] [address] PCP - General Geriatric Medicine 08/02/22 documented as of this encounter
--- OUTSIDE RECORDS SUMMARY | 2024-09-25 09:13 | XMS_ITS | Encounter Summary ---
[place] [address] Care Team Providers Care Delivery Driver/Customer Service Name Role Phone Yesy Nagy APRN Primary Care Provider [phone] Reason for Referral * Consultation (Routine) - Closed Specialty Diagnoses / Procedures Referred By Contac t Referred To Contact Rheumatology Diagnoses GCA (giant cell arteritis) PMR (polymyalgia rheumatica) Ananya Payan [facility] [place] [address] Referral ID Status Reason Start Date Expiration Date V isits Requested Visits Authorized [id number] Closed Consult, Test & Treat 01/17/2024 07/15/2024 1 1 Encounter Details Date Type Department Care Team (Latest Contact Info) Description 01/17/2024 10:00 AM EST TH Visit (TeleHealth) [place] [address] Ananya Payan, [facility] [place] [address] GCA (giant cell arteritis); PMR (polymyalgia rheumatica) [...] Telephone Follow Up Note PCP: MALACHI Vinson Jorge Jr. is a 73 y.o. male who we are seeing for the continuing management of GCA. At the outset of this visit, I made them aware that this telephone visit may be billed similar to aclinic visit to him or his insurance company. Mr. Patel were in agreement to continue this visit. Total telephone visit time: [id number] for a total 30 minutes. - pt [...] -DEXA- 09/17: normal Interval History: Reported developed hoahaoism pain, TORRES on 5 mg prednisone- increased on own back to 7 mg with improvement in sxs. - Report he has been doing well on 7mg daily of prednisone - no TORRES, hoahaoism pain, joint pain, morning stiffness, vision changes. - no fever, chills - reports he is moving to [place] to live with his sister in [facility]. Pt reports he grew up in [place]. ROS (positives in bold): Gen: no fevers, [...] to transfer care and establish with new [facility] in [place]. Referral sent to [facility] as that is the closest [facility]. Would consider,MTX, Orencia as steroid spearing agent. Will order inflammatory markers today. Plan - Continue Prednisone 7.5 mg daily - ordered CRP, ESR - Discuss DMARD steroid sparing options to start when you establish care in [place] - Referral sent to [facility]ology today as pt is moving to [place]. - follow up if needed. Patient was discussed with Dr. Luis Payan DO Rheumatology Fellow Pager: [phone] * Pravin Smith MD - 01/17/2024 10:00 AM EST Attending Addendum The patient had a TeleHealth visit with Dr. Ananya Payan, rheumatology fellow I. We reviewed the patient's interval history and Dr. Payan's management plan. I agree with Dr. Payan's assessment and plan. I did not directly interact with the patient. Pravin Smith MD Staff [facility] documented in this encounter Plan of Treatment Upcoming Encounters Date Type Department Care Team (Late st Contact Info) Description 09/25/2024 3:15 PM EDT Office Visit Rheumatology at [place] [phone] Mika Quiroga MD [facility] [place] [address] Obdulia Coleman MD [facility] [place] [address] Scheduled Referrals Name Type Priority Associated Diagnoses Order Schedule Referral to Rheumatology Outpatient Referral Routine GCA (giant cell arteritis) PMR (polymyalgia rheumatica) Ordered: 01/17/2024 documented as of this encounter Goals Goal Patient Goal Type Associated Problems Recent Progress Patient-Stated? Author DH Self-Management Patient Facing Action Plan Danica Casillas, [facility] Note: Judson Robe Patel Jr. [...] rheumatica documented in this encounter Care Teams Delivery Driver/Customer Service Relationship Specialty Start Date End Date Yesy Nagy APRN [address] [place] [address] PCP - General Geriatric Medicine 08/02/22 documented as of this encounter
--- OUTSIDE RECORDS SUMMARY | 2024-09-25 09:13 | XMS_ITS | Encounter Summary ---
Author Organization [facility] Address [address] [place] [address] Care Team Providers Care Table Lever Operator Name Role Phone Unknown, Provider Primary Care Provider [phone] Unknown, Provider Unavailable [phone] Encounter Details Date Type Department Care Team (Late st Contact Info) Description 08/19/2022 Lab Requisition [facility] Pathology & Laboratory Medicine - [address] [address] Outr Resulting Lab, Provider Social History Tobacco [...] Quantiferon Interpretation Negative Negative 08/21/2022 14:00 EDT [facility] Comment:No interferon-gamma response to M. tuberculosis antigens was detected. ??Infection with M. tuberculosis is unlikely. A single negative result does not exclude infection with M. tuberculosis. ??In patients at high risk for M. tuberculosis infection, a second test should be considered. TB1 Ag minus Nil 0.13 IU/ml 08/21/20 14:00 EDT [facility] TB2 Ag minus Nil 0.09 IU/mL 08/21/20 14:00 EDT [facility] Blood VENOUS BLOOD / Unknown 08/18/2022 9:08 EDT 08/21/2022 13:39 EDT Narrative [facility] - 08/21/2022 14:00 EDT Results were obtained with the Qiagen QuantiFERON-TB Gold Plus CLIA. New platform in use 08/03/2021 Provider Outr Resulting Lab IMMUNOLOGY A ND SEROLOGY ORDERABLES Performing Organization Address [facility] de Phone Number [facility] [address] [place] [address] * QUANTIFERON MITOGEN (PERFORMABLE) (08/18/2022 9:08 EDT) Blood VENOUS BLOOD / Unknown 08/18/2022 9:08 EDT 08/20/2022 15:42 EDT Provider Outr Resulting Lab IMMUNOLOGY A ND SEROLOGY ORDERABLES Performing Organization Address City/[facility]/ZIP Co de Phone Number [facility] [address] [place] [address] * QUANTIFERON TB2 (PERFORMABLE) (08/18/2022 9:08 EDT) Blood VENOUS BLOOD / Unknown 08/18/2022 9:08 EDT 08/20/2022 15:42 EDT Provider Outr Resulting Lab IMMUNOLOGY A ND SEROLOGY ORDERABLES Performing Organization Address [facility] Co de Phone Number [facility] [address] [place] [address] * QUANTIFERON TB1 (PERFORMABLE) (08/18/2022 9:08 EDT) Blood VENOUS BLOOD / Unknown 08/18/2022 9:08 EDT 08/20/2022 15:42 EDT Provider Outr Resulting Lab IMMUNOLOGY A ND SEROLOGY ORDERABLES Performing Organization Address [facility] de Phone Number [facility] [address] [place] [address] * QUANTIFERON NIL (PERFORMABLE) (08/18/2022 9:08 EDT) Blood VENOUS BLOOD / Unknown 08/18/2022 9:08 EDT 08/20/2022 15:42 EDT Provider Outr Resulting Lab IMMUNOLOGY A ND SEROLOGY ORDERABLES Performing Organization Address [facility] Co de Phone Number [facility] [address] [place] [address] documented in this encounter Visit Diagnoses Not on filedocumented in this encounter Care Teams Table Lever Operator Relationship Specialty Start Date End Date Unknown, Provider, PCP - General 11/10/15 Unknown, ProviderMD 11/10/15 documented as of this encounter
--- OUTSIDE RECORDS SUMMARY | 2024-09-25 09:13 | XMS_ITS | Encounter Summary ---
Author Organization [facility] Address [facility] [place] [address] Care Team Providers Care Quantometer Operator Name Role Phone Yesy Nagy APRN Primary Care Provider [phone] Reason for Visit * Reason Onset Date Comments Medication Refill 05/27/2024 Encounter Details Date Type Department Care Team (Late st Contact Info) Description 05/27/2024 Refill Rheumatology at [facility] [place] [address] Ananya Payan DO [facility] [place] [address] GCA (giant cell arteritis); PMR (polymyalgia rheumatica) [...] in medication list. PHARMACY NAME:[facility] P: [phone] PHARMACY PHONE: [phone] Would patient like script sent directly to pharmacy? (Yes or no) yes Would patient like to machine operator picker paper script here at our office (Please put yes or no) no Would patient like paper script mailed to home address (Please put yes or no) no Patient will be out of medication tomorrow and would like to machine operator picker Caller/Patient aware of 1-2 business day process. documented in this encounter Plan of Treatment Upcoming Encounters Date Type Department Care Team (Late st Contact Info) Description 09/25/2024 3:15 PM EDT Office [place] [address] Mika Quiroga MD [facility] [place] [address] Obdulia Coleman MD [facility] [place] [address] documented as of this encounter Goals Goal Patient Goal Type Associated Problems Recent Progress Patient-Stated? Author DH Self-Management Patient Facing Action Plan No Danica Taylor, [facility] Note: Judson Robe Patel Jr. Is hoping [...] rheumatica documented in this encounter Care Teams Quantometer Operator Relationship Specialty Start Date End Date Yesy Nagy APRN [address] [place] [address] PCP - General Geriatric Medicine 08/02/22 documented as of this encounter
--- OUTSIDE RECORDS SUMMARY | 2024-09-25 09:13 | XMS_ITS | Encounter Summary ---
Author Organization [facility] Address [address] [place] [address] Care Team Providers Care Unclaimed Property Officer Name Role Phone Unknown, Provider Primary Care Provider [phone] Unknown, Provider Unavailable [phone] Encounter Details Date Type Department Care Team (Late st Contact Info) Description 12/24/2020 Lab Requisition [facility] Pathology & Laboratory Medicine - [address] [address] Outr Resulting Lab, Provider Social History Tobacco [...] 0.0 - 6.5 ng/mL 12/24/2020 22:11 EST [facility] Blood VENOUS BLOOD / Unknown 12/24/2020 12:05 EST 12/24/2020 21:03 EST Narrative [facility] - 12/24/2020 22:11 EST NOTE: Serum PSA concentration should not be interpreted as absolute evidence for the presence or absence of malignant disease. Assayed on Siemens SpotRightIA Anaphoreaur XPT using chemiluminescent technology.??Values obtained by using different assay methods cannot be used interchangeably. Provider Outr Resulting Lab CHEMISTRY & BLOOD GAS ORDERABLES [facility] [address] [place] [address] documented in this encounter Visit Diagnoses Not on filedocumented in this encounter Care Teams Unclaimed Property Officer Relationship Specialty Start Date End Date Unknown, ProviderMD PCP - General 11/10/15 Unknown, ProviderMD 11/10/15 documented as of this encounter
--- OUTSIDE RECORDS SUMMARY | 2024-09-25 09:13 | XMS_ITS | Encounter Summary ---
Author Organization Count Includes [facility] Address [facility] [place] [address] Care Team Providers Care Icu Manager Name Role Phone Yesy Nagy APRN Primary Care Provider [phone] Reason for Visit * Reason Onset Date Comments Questions 09/14/2023 Encounter Details Date Type Department Care Team (Late st Contact Info) Description 09/14/2023 Telephone [place] [phone] Dia Rosario RN Questions Social History Tobacco [...] - 09/14/2023 11:54 AM EDT Copied from [facility] #[id number]. Topic: Specialty Dept CRMs - Triage >> [...] 3:15 PM EDT [place] [address] Mika Quiroga MD [facility] [place] [address] Obdulia Coleman MD [facility] [place] [address] documented as of this encounter Goals Goal [...] on filedocumented in this encounter Care Teams Icu Manager Relationship Specialty Start Date End Date Yesy Nagy APRN [address] [place] [address] PCP - General Geriatric Medicine 08/02/22 documented as of this encounter
--- OUTSIDE RECORDS SUMMARY | 2024-09-25 09:13 | XMS_ITS | Encounter Summary ---
Author Organization [facility] Address [facility] [place] [address] Care Team Providers Care Corporate Strategy Intern Name Role Phone Yesy Nagy APRN Primary Care Provider [phone] Encounter Details Date Type Department Care Team (Late st Contact Info) Description 06/29/2023 Telephone Dermatology at [facility] [address] [place] [address] Rafa Rachel MD [facility] [address] [place] [address] Social History Tobacco Use Types Packs/Day Years [...] 3:15 PM EDT Office [place] [address] Mika Quiroga MD [facility] [place] [place] [address] Obdulia Coleman MD [facility] [place] [address] documented as of this encounter Goals Goal Patient Goal Type Associated Problems Recent Progress Patient-Stated? Author DH Self-Management Patient Facing Action Plan No Danica Taylor, [facility] Note: Judson Robe Patel Jr. Is hoping to decrease his prednisone dosage and keep pain levels at a minimum. He is hoping that Actemra will be able to keep him walking since before prednisone he had a hard time standing up and walking around. documented as of this encounter Visit Diagnoses Not on filedocumented in this encounter Care Teams Corporate Strategy Intern Relationship Specialty Start Date End Date Yesy Nagy APRN [address] [place] [address] PCP - General Geriatric Medicine 08/02/22 documented as of this encounter
--- OUTSIDE RECORDS SUMMARY | 2024-09-25 09:13 | XMS_ITS | Encounter Summary ---
Author Organization [facility] Address [address] [place] [address] Care Team Providers Care Surgery Tech Name Role Phone Unknown, Provider Primary Care Provider [phone] Unknown, Provider Unavailable [phone] Encounter Details Date Type Department Care Team (Late st Contact Info) Description 05/14/2023 Lab Requisition [facility] Pathology & Laboratory Medicine - [facility] [address] [place] [address] Outr Resulting Lab, Provider Social History Tobacco [...] ID No fungi isolated 06/12/2023 7:44 EDT [facility] Blood VENOUS BLOOD / Unknown 05/14/2023 12:10 EDT 05/14/2023 17:19 EDT Provider Outr Resulting Lab MICROBIOLOGY - GENERAL ORDERABLES [facility] [address] [place] [address] documented in this encounter Visit Diagnoses Not on filedocumented in this encounter Care Teams Surgery Tech Relationship Specialty Start Date End Date Unknown, Provider, PCP - General 11/10/15 Unknown, ProviderMD 11/10/15 documented as of this encounter
--- OUTSIDE RECORDS SUMMARY | 2024-09-25 09:13 | XMS_ITS | Encounter Summary ---
Author Organization [facility] Address [facility] [place] [address] Care Team Providers Care Occupational Therapy Supervisor Name Role Phone Yesy Nagy APRN Primary Care Provider Encounter Details Date Type Department Care Team (Late st Contact Info) Description 01/04/2024 [place] [address] Landy Monson RN Social History [...] doing well. He has permanently relocated to [place]. I informed him that it would be [...] 5 mg Prednisone and started to have TORRES,yazdanism mild pain, so increased back to 7 mg daily. This is much better. States he has good days/bad days. Visiting sister in [place] currently. Balance not good and motor skills [...] away). Denied eye symptoms. Denied jaw claudication. Anabaptism pain now(when 5 mg was tender) but not now. Pt denied trouble chewing and no blurry vision at this time. Patient denied joint pain.Nothing red,warm nor swollen. Denied f/c/n/v/d and has been eating healthy, and not sick. No cold symptoms. Has been seeing his sister in [place] Asked about if studies available and maybe more medications available. Anxious to know if new things, and want to talk to Dr Schuyler DO. * Telephone Encounter - Landy Monson RN - 01/04/2024 1:25 PM EST Copied from [facility] #[id number]. Topic: Specialty Dept CRMs - Triage >> [...] 3:15 PM EDT [place] [address] Mika Quiroga MD [facility] [address] Obdulia Coleman MD [facility] [place] [address] documented as of this encounter Goals Goal Patient Goal Type Associated Problems Recent Progress Patient-Stated? Author DH Self-Management Patient Facing Action Plan No Danica Taylor, [facility] Note: Judson Robe Patel Jr. Is hoping to decrease his prednisone dosage and keep pain levels at a minimum. He is hoping that Actemra will be able to keep him walking since before prednisone he had a hard time standing up and walking around. documented as of this encounter Visit Diagnoses Not on filedocumented in this encounter Care Teams Occupational Therapy Supervisor Relationship Specialty Start Date End Date Yesy Nagy APRN [address] [place] [address] PCP - General Geriatric Medicine 08/02/22 documented as of this encounter
--- OUTSIDE RECORDS SUMMARY | 2024-09-25 09:13 | XMS_ITS | Encounter Summary ---
Author Organization [facility] Address [facility] [address] Care Team Providers Care Measurement Advisor Name Role Phone Yesy Nagy APRN Primary Care Provider [phone] Encounter Details Date Type Department Care Team (Late st Contact Info) Description 08/06/2024 Telephone [place] [address] Landy Monson RN Social History [...] Telephone Encounter - Landy Monson RN - 08/06/2024 5:36 PM EDT Copied from [facility] #[id number]. Topic: Specialty Dept CRMs - Generic Call >> Aug 06, 2024 11:15 AM February wrote: Specialist: Ananya Payan, DO Relationship (if other than patient-full name): Self Reason for Call: Patient states that he received a call from the office and he is returning it Mailbox is full-not able to leave a message. Send note to have executive secretary call patient. Chart check- Dear Mr. Patel, We have tried to reach you regarding a referral received in our office. If you would still like to set up an appointment in the Neurology Department we would be happy to assist you. We can be reached at [phone], M-F between the hours of 8am-5pm. documented in this encounter Plan of Treatment Upcoming Encounters Date Type Department Care Team (Late st Contact Info) Description 09/25/2024 3:15 PM EDT Office [place] [address] Mika Quiroga MD [facility] [place] [address] Obdulia Coleman MD [facility] [place] [address] documented as of this encounter Goals Goal Patient Goal Type Associated Problems Recent Progress Patient-Stated? Author DH Self-Management Patient Facing Action Plan Danica Casillas, [facility] Note: [...] on filedocumented in this encounter Care Teams Measurement Advisor Relationship Specialty Start Date End Date Yesy Nagy APRN [address] [place] [address] PCP - General Geriatric Medicine 08/02/22 documented as of this encounter
--- OUTSIDE RECORDS SUMMARY | 2024-09-25 09:13 | XMS_ITS | Encounter Summary ---
Author Organization [facility] [place] [address] Care Team Providers Care Electronic Coils Supervisor Name Role Phone Yesy Nagy APRN Primary Care Provider [phone] Reason for Visit * Reason Onset Date Comments Follow-up 06/21/2023 Encounter Details Date Type Department Care Team (Late st Contact Info) Description 06/21/2023 Telephone [place] [address] Dayna Paez, RN Follow-up Social [...] Miscellaneous Notes * Telephone Encounter - Dayna Paze, RN - 06/21/2023 3:08 PM EDT Copied from [facility] #[id number]. Topic: Specialty Dept CRMs - Triage >> [...] his finger joints. Reports decreased mobility. Reports Bindery Production Manager told him he has dry eye and [...] 3:15 PM EDT Office [place] [address] Mika Quiroga MD [facility] [place] [address] Obdulia Coleman MD [facility] [place] [address] documented as of this encounter Goals Goal Patient Goal Type Associated Problems Recent Progress Patient-Stated? Author DH Self-Management Patient Facing Action Plan No Danica Taylor, [facility] Note: Judson Nagel Jorge Cisse. Is hoping to decrease his prednisone dosage and keep pain levels at a minimum. He is hoping that Actemra will be able to keep him walking since before prednisone he had a hard time standing up and walking around. documented as of this encounter Visit Diagnoses Not on filedocumented in this encounter Care Teams Electronic Coils Supervisor Relationship Specialty Start Date End Date Yesy Nagy APRN [address] [place] [address] PCP - General Geriatric Medicine 08/02/22 documented as of this encounter
--- OUTSIDE RECORDS SUMMARY | 2024-09-25 09:13 | XMS_ITS | Encounter Summary ---
[place] [address] Care Team Providers Care Molecular Biology Scientist Name Role Phone Yesy Nagy APRN Primary Care Provider Encounter Details Date Type Department Care Team (Late st Contact Info) Description 07/14/2024 [place] [address] Dayna Paez RN Social History [...] Telephone Encounter - Dayna Paez RN - 07/14/2024 1:09 PM EDT Copied from [facility] #[id number]. Topic: Specialty Dept CRMs - Generic Call >> Jul 14, 2024 12:59 PM Mirtha Chavez wrote: Specialist: Rheumatology Relationship (if other than patient-full name): Shaunna [facility] Reason for Call: Shaunna states they received 4 prescriptions written by Obdulia Coleman MD and that this provider is not covered by [place] Medicaid, so they will need a different provider to put on theprescriptions. documented in this encounter Plan of Treatment Upcoming Encounters Date Type Department Care Team (Late st Contact Info) Description 09/25/2024 3:15 PM EDT [place] [address] Mika Quiroga MD [facility] [place] [address] Obdulia Coleman MD [facility] [place] [address] documented as of this encounter Goals Goal Patient Goal Type Associated Problems Recent Progress Patient-Stated? Author DH Self-Management Patient Facing Action Plan No Danica Taylor, [facility] Note: Judson Nagel Jorge Cisse. Is hoping to decrease his prednisone dosage and keep pain levels at a minimum. He is hoping that Actemra will be able to keep him walking since before prednisone he had a hard time standing up and walking around. documented as of this encounter Visit Diagnoses Not on filedocumented in this encounter Care Teams Molecular Biology Scientist Relationship Specialty Start Date End Date Yesy Nagy APRN [address] [place], [place] [address] [place] [address] PCP - General Geriatric Medicine 08/02/22 documented as of this encounter
--- OUTSIDE RECORDS SUMMARY | 2024-09-25 09:13 | XMS_ITS | Encounter Summary ---
Author Organization [facility] Address [facility] [place] [address] Care Team Providers Care Instrumentation Engineering Technician Name Role Phone YakovChristianaYesybe LY Primary Care Provider [phone] Reason for Visit * Consultation (STAT) - Closed Specialty Diagnoses / Procedures Referred By Socrates t Referred To Contact Dermatology Diagnoses Candidal paronychia Yesy Nagy APRN [address] [place] [address] [facility] Dermatology [address] [place] [address] Referral ID Status Reason Start Date Expiration Date V isits Requested Visits Authorized [id number] Closed Consult, Test & Treat 05/07/2023 05/06/2024 1 1 Encounter Details Date Type Department Care Team (Latest Contact Info) Description 05/23/2023 11:20 AM EDT Office Visit Dermatology at [facility] [address] [place] [address] Rafa Rachel MD [facility] [address] [address] Onychomycosis (Primary Dx); Chronic paronychia [...] labs in 3 weeks (sent to [facility]) Figure 1 Figure 2 Photo(s) taken and charted with patient's verbal consent. Other: Reviewed and/or interpreted test results Reviewed external notes/records RTC: 3 months for candidal paronychia follow up []Note routed to certified legal secretary specialist [x]Recall placed in scheduling system []Appointment scheduled at checkout Scribe attestation: Alex Rivera has performed the documentation for this encounter in the presence of and acting as a scribe for Rafa Rachel MD. I performed the above scribed service and agree with the accuracy of the documentation in this encounter. Reviewed and signed by: Rafa Rachel MD Dermatology [facility] Patient seen and evaluated with staff time study engineer: Tonny Gudino MD Department of Dermatology [facility] * Tonny Gudino MD - 05/23/2023 11:20 [...] 3:15 PM EDT Office [place] [address] Mika Quiroga MD [facility] [place] [address] Obdulia Coleman MD [facility] [place] [address] documented as of this encounter Goals Goal Patient Goal Type Associated Problems Recent Progress Patient-Stated? Author DH Self-Management Patient Facing Action Plan No Danica Taylor, [facility] Note: Judson Patel Jr. Is hoping to [...] laterality documented in this encounter Care Teams Instrumentation Engineering Technician Relationship Specialty Start Date End Date Yesy Nagy APRN [address] [place] [address] PCP - General Geriatric Medicine 08/02/22 documented as of this encounter
--- OUTSIDE RECORDS SUMMARY | 2024-09-25 09:13 | XMS_ITS | Encounter Summary ---
Author Organization [facility] Address [facility] [place] [address] Care Team Providers Care Shipping And Receiving Clerk Name Role Phone Yesy Nagy APRN Primary Care Provider Encounter Details Date Type Department Care Team (Late st Contact Info) Description 05/16/2023 [place] [address] Ananya Payan DO [facility] [place] [address] Social History Tobacco Use Types Packs/Day Years [...] 3:15 PM EDT [place] [address] Mika Quiroga MD [facility] [place] [address] Obdulia Coleman MD [facility] [place] [address] documented as of this encounter Goals Goal Patient Goal Type Associated Problems Recent Progress Patient-Stated? Author DH Self-Management Patient Facing Action Plan No Danica Taylor, [facility] Note: Judson Robe Patel Jr. Is hoping to decrease his prednisone dosage and keep pain levels at a minimum. He is hoping that Actemra will be able to keep him walking since before prednisone he had a hard time standing up and walking around. documented as of this encounter Visit Diagnoses Not on filedocumented in this encounter Care Teams Shipping And Receiving Clerk Relationship Specialty Start Date End Date Yesy Nagy APRN [address] [place] [address] PCP - General Geriatric Medicine 08/02/22 documented as of this encounter
--- OUTSIDE RECORDS SUMMARY | 2024-09-25 09:13 | XMS_ITS | Encounter Summary ---
Author Organization [facility] Address [address] [place] [address] Care Team Providers Care Hose Inspector Name Role Phone Unknown, Provider Primary Care Provider [phone] Unknown, Provider Unavailable [phone] Encounter Details Date Type Department Care Team (Late st Contact Info) Description 08/18/2022 Lab Requisition [facility] Pathology & Laboratory Medicine - [address] [address] Outr Resulting Lab, Provider Social History Tobacco [...] 4th Generation Negative Negative 08/21/2022 10:20 EDT [facility] Comment:If acute HIV-1 infec tion is suspected in a high risk patient, submit plasma specimen for HIV-1 RNA quantitation test. Blood VENOUS BLOOD / Unknown 08/18/2022 9:08 EDT 08/18/2022 18:19 EDT Narrative [facility] - 08/21/2022 10:20 EDT Fourth Generation assay performed on the Siemens Centaur XPT. Provider Outr Resulting Lab IMMUNOLOGY A ND SEROLOGY ORDERABLES [facility] [address] [place] [address] documented in this encounter Visit Diagnoses Not on filedocumented in this encounter Care Teams Hose Inspector Relationship Specialty Start Date End Date Unknown, ProviderMD PCP - General 11/10/15 Unknown, ProviderMD 11/10/15 documented as of this encounter
--- OUTSIDE RECORDS SUMMARY | 2024-09-25 09:13 | XMS_ITS | Encounter Summary ---
Author Organization [facility] [place] [address] Care Team Providers Care Severity Of Illness Coordinator Name Role Phone Yesy Nagy APRN Primary Care Provider Encounter Details Date Type Department Care Team (Late st Contact Info) Description 06/22/2023 Telephone [place] [address] Ananya Payan [facility] [place] [address] Social History Tobacco Use Types Packs/Day Years [...] 3:15 PM EDT Office [place] [address] Mika Quiroga MD [facility] [place] [address] Obdulia Coleman MD [facility] [place] [address] documented as of this encounter Goals Goal [...] hands documented in this encounter Care Teams Severity Of Illness Coordinator Relationship Specialty Start Date End Date Yesy Nagy APRN [address] [place] [address] PCP - General Geriatric Medicine 08/02/22 documented as of this encounter
--- OUTSIDE RECORDS SUMMARY | 2024-09-25 09:13 | XMS_ITS | Encounter Summary ---
Author Organization [facility] Address [facility] [place] [address] Care Team Providers Care Process Server Name Role Phone Yesy Nagy APRN Primary Care Provider Encounter Details Date Type Department Care Team (Latest Contact Info) Description 05/31/2023 10:15 AM EDT Laboratory Appointment Lab [address] [place] [phone] GCA (giant cell arteritis); Immunosuppressed status; Medication [...] 3:15 PM EDT [place] [phone] Mika Quiroga MD [facility] [place] [address] Obdulia Coleman MD [facility] [place] [address] documented as of this encounter Goals Goal Patient Goal Type Associated Problems Recent Progress Patient-Stated? Author BRYAN Self-Management Patient Facing Action Plan No Danica Taylor, [facility] Note: Judson K Jorge Jr. Is hoping to decrease his prednisone dosage and keep pain levels at a minimum. He is hoping that Karlene will be able to keep him walking since before prednisone he had a hard time standing up and walking around. documented as of this encounter Procedures Procedure Name Priority Date/Time Associated Diagnosis Comments CRP, ACUTE INFLAMMATION Routine 05/31/2023 10:18 AM EDT GCA (giant cell arteritis) Medication monitoring encounter HEMOGRAM Routine 05/31/2023 10:18 AM EDT GCA (giant cell arteritis) Immunosuppressed status Medication monitoring encounter DIFFERENTIAL, AUTOMATED Routine 05/31/2023 10:18 AM EDT GCA (giant cell arteritis) Immunosuppressed status Medication monitoring encounter SEDIMENTATION RATE Routine 05/31/2023 10 :18 AM EDT GCA (giant cell arteritis) Medication monitoring encounter CBC (WITH DIFF) Routine 05/31/2023 10:18 AM EDT GCA (giant cell arteritis) Immunosuppressed status Medication monitoring encounter LIPID PANEL (REFLEX DIRECT LDL) Routine 05/31/2023 10:18 AM EDT GCA (giant cell arteritis) Immunosuppressed status Medication monitoring encounter Hyperlipidemia, unspecified hyperlipidemia type COMPREHENSIVE METABOLIC PANEL Routine 05/31/2023 10:18 AM EDT GCA (giant cell arteritis) Immunosuppressed status Medication monitoring encounter documented in this encounter Results * (ABNORMAL) Differential, Automated (05/31/2023 10:18 AM EDT) Neutrophil % 61.4 % [facility] Neutrophil Absolute 4.38 1.70 - 6.10 x10(3)/mc L [facility] Lymph % 25.0 % [facility] Lymphocytes Abs 1.8 0.9 - 3.2 x10(3)/mc L [facility] Monocyte % 11.4 % [facility] Monocyte Abs 0.8 0.3 - 0.9 x10(3)/mc L [facility] Eos % 1.1 % [facility] Eosinophils Abs 0.1 0.0 - 0.4 x10(3)/mc L [facility] Basophil % 0.4 % [facility] Baso Absolute 0.0 0.0 - 0.1 x10(3)/mc L [facility] Immature Gran % 0.70 % [facility] Comment: Immature granulocytes(IG's)percentage and absolute count will include metamyelocytes, myelocytes, and promyelocytes. Blood smears from CBCs yielding IG's will be scanned manually for concordance. If this scan disagrees with the automated IG or if promyelocytes are noted, a manual differential will be performed. Immature Gran Absolute 0.05(H) 0.00 - 0.04 x10(3)/mc L [facility] Blood 05/31/2023 10:1 8 AM EDT 05/31/2023 10:37 AM EDT Narrative Resulting Agency Comment Spec In Lab Ananya Payan DO HEMATOLOGY ORDERABLE S Performing Organization Address City/State/[facility] Co de Phone Number [facility] [place] [address] * (ABNORMAL) Hemogram (05/31/2023 10:18 AM EDT) White Blood Cell 7.1 4.0 - 9.5 x10(3)/mc L [facility] Red Blood Cell 4.26(L) 4.58 - 5.54 x10(6)/mc L [facility] Hemoglobin 14.2 13.7 - 16.5 g/dL [facility] Hematocrit 40.3(L) 40.5 - 48.5 % [facility] Mean Cell Volume 94.6(H) 82.9 - 93.1 fL [facility] Mean Cell Hemoglobin 33.3(H) 27.5 - 32.1 pg [facility] Mean Cell Hemoglobin Concentration 35.2 32.0 - 35.7 g/dL [facility] Platelet 195 145 - 357 x10(3)/mc L [facility] RDW Standard Deviation 47.1(H) 36.0 - 45.0 fL [facility] RDW coefficient of variation 13.6 11.4 - 13.8 % [facility] Mean Platelet Volume 9.8 7.6 - 12.9 fL [facility] NRBC% auto 0.0 % [facility] NRBC Absolute 0.000 0.000 - 0.000 x10(3)/mc L [facility] Blood 05/31/2023 10:1 8 AM EDT 05/31/2023 10:37 AM EDT Narrative Resulting Agency Comment Spec In Lab Ananya Payan DO HEMATOLOGY ORDERABLE S Performing Organization Address [facility] Co de Phone Number [facility] [place] [address] * CRP, acute inflammation (05/31/2023 10:18 AM EDT) C-Reactive Protein <3.0 <=4.9 mg/L [facility] Blood 05/31/2023 10:1 8 AM EDT 05/31/2023 10:37 AM EDT Narrative Resulting Agency Comment Spec In Lab Linda Shaikh DO CHEMISTRY ORDERABL ES Performing Organization Address [facility] de Phone Number [facility] [place] [address] * Sedimentation rate (05/31/2023 10:18 AM EDT) Pathologist [facility] Sedimentation Rate Automated 4 3 - 46 mm/hr [facility] Comment: Effective November 05, 2019 new capillary photometric technology has resulted in a change in reference ranges. It is recommended that each ESR result be reviewed with its own age appropriate reference range. Blood 05/31/2023 10:1 8 AM EDT 05/31/2023 10:37 AM EDT Narrative Resulting Agency Comment Spec In Lab Linda Shaikh DO HEMATOLOGY ORDERAB LES Performing Organization Address [facility] Co de Phone Number [facility] [place] [address] * Lipid Panel (Reflex Direct LDL) (05/31/2023 10:18 AM EDT) Cholesterol, Total 239 mg/dL [facility] Comment: Lower Risk: <200 mg/dL Average Risk: 200-239 mg/dL Higher Risk: >sb=785 mg/dL Triglyceride 191 mg/dL [facility] Comment: Average Risk/Lower Risk: <150 mg/dL Borderline High Risk: 150-199 mg/dL High Risk: 200-499 mg/dL Very High Risk: >da=579 mg/dL HDL Cholesterol 51 mg/dL [facility] Comment: Males: ?? Higher Risk: <40 mg/dL Females: ?? Higher Risk: <50 mg/dL LDL Cholesterol 150 mg/dL [facility] Comment: Lowest Risk: <100 mg/dL Lower Risk: 100-129 mg/dL Borderline High Risk: 130-159 mg/dL High Risk: 160-189 mg/dL Very High Risk: >bc=832 mg/dL Cholesterol/HDL Ratio 4.7 ratio [facility] Lipid Interpretation See Note [facility] Comment: Lipid management should be guided by a patient? s ASCVD risk, goals and preferences. ACC/AHA Guidelines recommend high intensity statin if clinical ASCVD or LDL greater than or equal to 190 mg/dL. http://Matchbook.com/MTV-ING-Bjmrqxwhk Adults aged 40-75 with LDL 70-189 mg/dL should have their 10 year ASCVD risk estimated with the ACC/AHA ASCVD risk production estimator http://tools.acc.org/SHJWA-Dwev-Segxqabyh/ Statin should be discussed if risk greater [...] Lab Junior Bernard MD CHEMISTRY ORDERABLE S [facility] [place] [address] * Comprehensive metabolic panel (non-fasting) (05/31/2023 10:18 AM EDT) Glucose 115 65 - 199 mg/dL [facility] Comment:Diabetes: >=200 mg/d L plus symptoms Blood Urea Nitrogen 20 10 - 20 mg/dL [facility] Creatinine 1.15 0.80 - 1.50 mg/dL [facility] Sodium 139 135 - 145 mmol/L [facility] Potassium 4.6 3.5 - 5.0 mmol/L [facility] Comment: Please note: ??Patients with WBC >100,000 may have falsely elevated Potassium levels. ??For accurate Potassium quantification in these patients send serum separator tube (gold top) for subsequent determinations. ??Contact the Clinical Chemistry Laboratory if there are any questions. Chloride 103 98 - 107 mmol/L [facility] Carbon Dioxide 27 22 - 31 mmol/L [facility] Anion Gap 9 5 - 15 mmol/L [facility] Calcium 9.7 8.5 - 10.5 mg/dL [facility] Protein, Total 6.7 6.1 - 8.0 g/dL [facility] Albumin 4.4 3.2 - 5.2 g/dL [facility] Aspartate Aminotransferase 16 0 - 39 unit/L [facility] Alanine Aminotransferase 12 0 - 55 unit/L [facility] Alkaline Phosphatase 45 40 - 130 unit/L [facility] Bilirubin, Total 0.6 0.2 - 1.3 mg/dL [facility] Est Glomerular Filtration Rate 67 >=60 mL/min/1. 73 m?? [facility] Comment: This patient's estimated GFR [...] Lab Junior Bernard MD CHEMISTRY ORDERABLE S [facility] [place] [address] documented in this encounter Visit Diagnoses Diagnosis GCA (giant cell arteritis) Giant cell arteritis Immunosuppressed status Unspecified disorder of immune mechanism Medication monitoring encounter Encounter for therapeutic drug monitoring Hyperlipidemia, unspecified hyperlipidemia type documented in this encounter Care Teams Process Server Relationship Specialty Start Date End Date Yesy Nagy APRN [address] [place] [address] PCP - General Geriatric Medicine 08/02/22 documented as of this encounter
--- OUTSIDE RECORDS SUMMARY | 2024-09-25 09:13 | XMS_ITS | Encounter Summary ---
Author Organization [facility] Address [facility] [place] [address] Care Team Providers Care Derrick Worker Well Service Name Role Phone Yesy Nagy APRN Primary Care Provider [phone] Reason for Visit * Reason Comments Specialty Pharmacy Review Tocilizumab (A ctemra) Actpen 162mg/0.9mL Encounter Details Date Type Department Care Team (Late st Contact Info) Description 05/31/2023 Specialty [place] [address] Yuliya Booker, [facility] Social History Tobacco Use Types Packs/Day [...] Booker - 05/31/2023 11:59 PM EDT The [facility] has completed a benefits investigation for Judson Patel Jr. to review their eligibility to fill at [facility]. Per patient's medication list they are prescribed Actemra and the medication is able to be filled at the [facility] but is not currently on Actemra. documented in this encounter Plan of Treatment Upcoming Encounters Date Type Department Care Team (Late st Contact Info) Description 09/25/2024 3:15 PM EDT Office [place] [address] Mika Quiroga MD [facility] [place] [address] Obdulia Coleman MD [facility] [place] [address] documented as of this encounter Goals Goal Patient Goal Type Associated Problems Recent Progress Patient-Stated? Author DH Self-Management Patient Facing Action Plan No Danica Taylor, [facility] Note: Judson Nagel Jorge Cisse. Is hoping to decrease his prednisone dosage and keep pain levels at a minimum. He is hoping that Actemra will be able to keep him walking since before prednisone he had a hard time standing up and walking around. documented as of this encounter Visit Diagnoses Not on filedocumented in this encounter Care Teams Derrick Worker Well Service Relationship Specialty Start Date End Date Yesy Nagy APRN [address] [place] [id number] PCP - General Geriatric Medicine 08/02/22 documented as of this encounter
--- OUTSIDE RECORDS SUMMARY | 2024-09-25 09:13 | XMS_ITS | Data Portability ---
Author Organization MD - [facility], MAIN OFFICE Address [address] [place] [phone] Assessment Encounter Date Assessment Date Assessment LastModified [...] recorded. Lab lipoprotein (A), serum 2021 022 [facility] (Registration ), [address] [place] [address] Dr, [place], [address], 2 05:00:50 homocystein e, serum or plasma 2021 [facility] (Registration ), [address] [place] [address] Dr [facility] [place], [address], 2 05:00:50 magnesium, serum or plasma 2021 [facility] (Registration ), [address] [place] [address] Dr [facility] [place], [address], 2 05:00:50 electrolyte panel, serum 2021 [facility] (Registration ), [address] [place] [address] Dr [facility] [place], [address], 2 05:00:50 vitamin D, 25-hydroxy, total, serum 2021 022 [facility] (Registration ), [address] [place] [address] [place], [address], 2 05:00:50 vitamin B12 + folate, serum or blood 2021 022 [facility] (Registration ), [address] [place] [address] [place], [address], 2 05:00:50 CBC w/ diff 2021 022 [facility] (Registration ), [address] [place] [address] [place], [address], 2 05:00:50 iron + TIBC + ferritin, serum 2021 022 [facility] (Registration ), [address] [place] [address] Dr [facility] [place], [address], 2 05:00:50 testosteron e, free + total, w/ shbg, serum 2021 022 [facility] (Registration ), [address] [place] [address] Dr, [place], [address], 05:01:12 dhea-sulfat e, serum 2021 022 [facility] (Registration ), [address] [place] [address] [place], [address], 2 05:01:12 estrogen, total, serum 2021 022 [facility] (Registration ), [address] [place] [address] [place], [address], 05:01:12 Referral None recorded. Procedures None recorded. [...] pro-omega 1000mg-1 cap 2xday or another by Zaya 4. NEXT VISIT- bring bag of vitamins go over labwork next visit magnesium taurate 1 cap 2xday ther-biotic 1 cap 2xday Coq10 1 cap/day [place] 40 drops 3xday Not available 12/21/2021 12:39:51 01/11/2022 [id number] Decreased Male Libido: Care Instructions Not available 01/20/2022 14:41:35 high cholesterol : care instructions kknight Not available 01/20/2022 14:41:35 1 pure genomics b complex 1 cap/day 2.Do not take citruline products right now- 3. Hormone testing -at [facility]- to see if testosterone is high or [...] Reason for Referral None Reported. Problems Name Problem SNOMED Code Status Onset Date Resolution Date Notes Provider Name and Address Organization Details Recorded Time Hypertensive disorder 19769677 Active 2021 Nathalie Read [address], [address], [facility] 2 11:49:13 Neuropathy 909423814 Active 2021 Nathalie Davidanthony [address], [address], [facility] 2 11:49:38 Hyperlipidemia 29901686 Active 2021 Nathalie Read ND [address] [place] [address], [address], [facility] 2 11:49:50 Family history of Cardiovascular disease 940052824 Active 2021 Nathalie ReadKERRI [address] [place] [address], [address], [facility] 2 10:51:12 Fatigue 38684585 Active 2021 Nathalie DavidanthonyKERRI [address] [place] [address], [address], [facility] 2 10:51:13 Vitamin D deficiency 83925165 Active 2021 Nathalie DavidanthonyKERRI [address] [place] [address], [address], [facility] 2 10:51:16 Benign prostatic hyperplasia 751142692 Active 2021 Nathalie Read ND [address] [place] [address], [address], [facility] 2 15:02:37 Problem Notes None recorded. Procedures Surgical History Date Name Laterality Status Provider Name and Address Organization Details Recorded Time 11/26/18 54 Removal of tonsils completed Nathalie Read ND [address] [place] [phone], [facility] 12/21/2021 11:56:41 11/26/18 53 Appendectomy completed Nathalie Read ND [address] [place] [phone], [facility] 12/21/2021 11:56:11 Imaging Results None recorded. Procedure [...] Address Organization Details Last Updated DateTime 2 10289.6 7 g 23.5 kg/m2 168.91 cm 69.97 /min 96.98 % 96.98 % 138 mm[Hg] 60 mm[Hg] Nathalie Read ND [address] [place] [address], [address], [facility] 2 11:48:04 Date Recorded Body height Systolic blood pressure Diastolic blood pressure Provider Name and Address Organization Details Last Updated DateTime 03/21/2022 168.91 cm 138 mm[Hg] 66 mm[Hg] Nathalie Read ND [address] [place] [address], [phone], [facility] 03/21/2022 15:04:52 Social History None recorded. Functional Status None recorded. Mental Status None recorded. Family History Relationship Description Onset Age of this Age Resolved Age Notes LastModified by Organization Details LastModified Time Father Carcinoma of prostate 73 Not available 2021 11:51:40 Father Myocardial infarction 59 Not available 12/21 11:54:12 Paternal Grandfather Carcinoma of prostate Not available 2021 11:51:40 Mother Diabetes mellitus 69 Not available 2021 11:52:21 Brother Myocardial infarction 51 Not available 12/21 11:53:54 Medical History Condition Response Coronary Artery Disease N Other N Gout N Kidney Stones N Blood Diseases N Hyperthyroidism N Breast Cancer N Blood Transfusion N Hospital Admission Other Than N Hypothyroidism N Lung Disease N Depression N COPD N Defects or Inherited Disease N Developmental or Behavioral Disorders N Breast Problem N Difficulty Swallowing N Anesthesia Complications N Anxiety Disorder N Meniere's disease N Muscle, Joint, or Bone Problems N Obesity N Vision or Eye Problems N Arthritis N Head Injury/Concussion N Infertility N Polyps N Mental Disorder N Congenital Anomalies N Cancer N Stroke N Varicosities N Endometriosis N Bladder or Kidney Problems N High Cholesterol Y Liver Disease Y Fibromyalgia N Headaches N Kidney Disease N Allergies/Hayfever N Heart [...] Y Heart Disease N Pulmonary Embolism N Chronic Ear Infections Y Pre-Eclampsia N Hypertension Y Chicken Pox Y Autism Spectrum Disorder (ASD) N Osteoporosis N Thrombophilias N Past Encounters Encounter ID Performer Location Encounter Start Date Encounter Closed Date Diagnosis/Indication Diagnosis SNOMED-CT Code Diagnosis ICD10 Code [id number] Nathalie Read ND MAIN OFFICE [address] [place] [address] 12/21/2021 11:36:00 01/03/2022 11:56:15 Family history of Cardiovascular disease 482004626 Z82.49 Fatigue 89796580 R53.83 Vitamin D deficiency 347 52055 E55.9 Hypertensive disorder 38 002329 I10 Neuropathy 740945970 G62 .9 [id number] Nathalie Read ND MAIN OFFICE [address] [place] [address] 01/11/2022 13:30:54 01/20/2022 14:41:50 Reduced libido 7678407 R68.82 Hyperlipidemia 14115571 E78.5 Vitamin D deficiency 347 59460 E55.9 Hypertensive disorder 38 671114 I10 [id number] Nathalie Read ND MAIN OFFICE [address] [place] [address] 03/21/2022 14:38:41 04/06/2022 10:08:27 Benign prostatic hyperplasia 751555924 N40.0 Hyperlipidemia 77022797 E78.5 Health Concerns Section Related Observation LastModified by Organization Detai ls LastModified Time None Recorded Concern Status LastModified by Organization Details LastModified Time None Recorded Advance Directives Directive None Recorded Payers Encounter Date Sequence Insurance Name Policy Number Policy Rivera Covered Member ID Rivera Member ID Guarantor Name 12/21/2021 1 [facility] (MEDICAID) Judson Patel [id number] Judson Patel 01/11/2022 1 [facility] (MEDICAID) Judson Patel [id number] Judson Patel 03/21/2022 1 [facility] (MEDICAID) Judson Patel [id number] Judson Patel Notes Date Note Type Note Provider Name [...] has been taking for many years- Nathalie Read ND [address] [facility], [place], [address], [facility] - [facility] 01/03/2022 11:03:14 01/11/2022 text/html HPI Notes: lab [...] what to discard. Nathalie Read ND [address] [facility], [place], [address], [facility] - [facility] 01/20/2022 14:41:41 03/21/2022 text/html HPI Notes: 130/6 6 amlopidine seems to be working well- below- he started niacin- and he gets a lot of itching- with it- but itching comes days later- reviewed plan with baby askipirn and extra water Nathalie Read ND [address] [facility], [place], [address], [facility] - [facility] 03/21/2022 15:05:24
--- OUTSIDE RECORDS SUMMARY | 2024-09-25 09:13 | XMS_ITS | Encounter Summary ---
Author Organization [facility] Address [address] [place] [address] Care Team Providers Care Marketing Development Manager Name Role Phone Unknown, Provider Primary Care Provider [phone] Unknown, Provider Unavailable [phone] Encounter Details Date Type Department Care Team (Late st Contact Info) Description 01/04/2022 Lab Requisition [facility] Pathology & Laboratory Medicine - [address] [address] Outr Resulting Lab, Provider Social History Tobacco [...] 5.0 - 13.9 umol/L 01/06/2022 8:16 EST [facility] Blood VENOUS BLOOD / Unknown 01/04/2022 7:52 EST 01/04/2022 21:30 EST Narrative [facility] - 01/06/2022 8:16 EST Reference range may not apply to non-fasting samples. ??It is not recommended that EDTA plasma and serum from the same patient be used interchangeably. ??Serum concentrations have been observed to be up to 10% higher than EDTA plasma. Reference range may not apply to serum results. Provider Outr Resulting Lab CHEMISTRY & BLOOD GAS ORDERABLES [facility] [address] [place] [address] documented in this encounter Visit Diagnoses Not on filedocumented in this encounter Care Teams Marketing Development Manager Relationship Specialty Start Date End Date Unknown, ProviderMD PCP - General 11/10/15 Unknown, ProviderMD 11/10/15 documented as of this encounter
--- OUTSIDE RECORDS SUMMARY | 2024-09-25 09:13 | XMS_ITS | Encounter Summary ---
Author Organization [facility] Address [facility] [place] [address] Care Team Providers Care Orthopedically Impaired Teacher Name Role Phone Yesy Nagy MALACHI Primary Care Provider +1- [phone] Reason for Visit * Reason Onset Date Comments Medication Refill 04/28/2024 Encounter Details Date Type Department Care Team (Late st Contact Info) Description 04/28/2024 [place] [address] Ananya Payan, [facility] [place] [address] GCA (giant cell arteritis); PMR (polymyalgia rheumatica) [...] medication list. PHARMACY NAME:[id number] - [address] PHARMACY PHONE: [phone] Would patient like script sent directly to pharmacy? (Yes or no) yes Would patient like to molded goods spot picker paper script here at our office [...] 3:15 PM EDT Office [place] [address] Mika Quiroga MD [facility] [place] [address] Obdulia Coleman MD [facility] [place] [address] documented as of this encounter Goals Goal Patient Goal Type Associated Problems Recent Progress Patient-Stated? Author DH Self-Management Patient Facing Action Plan No Danica Taylor, [facility] Note: Judson Patel Jr. Is hoping to [...] rheumatica documented in this encounter Care Teams Orthopedically Impaired Teacher Relationship Specialty Start Date End Date Yesy Nagy APRN [address] [place] [address] PCP - General Geriatric Medicine 08/02/22 documented as of this encounter
--- OUTSIDE RECORDS SUMMARY | 2024-09-25 09:13 | XMS_ITS | Encounter Summary ---
[place] [address] Care Team Providers Care Timers Inspector Name Role Phone Yesy Nagy APRN Primary Care Provider Encounter Details Date Type Department Care Team (Late st Contact Info) Description 07/04/2023 Telephone [place] [address] Landy Monson RN Social History [...] - 07/04/2023 2:45 PM EDT Copied from [facility] #[id number]. Topic: Specialty Dept CRMs - Generic Call [...] 3:15 PM EDT Office [place] [address] Mika Quiroga MD [facility] [place] [address] Obdulia Coleman MD [facility] [place] [address] documented as of this encounter Goals Goal Patient Goal Type Associated Problems Recent Progress Patient-Stated? Author DH Self-Management Patient Facing Action Plan No Danica Taylor, [facility] Note: Judson Nagel Jorge Cisse. Is hoping to decrease his prednisone dosage and keep pain levels at a minimum. He is hoping that Actemra will be able to keep him walking since before prednisone he had a hard time standing up and walking around. documented as of this encounter Visit Diagnoses Not on filedocumented in this encounter Care Teams Timers Inspector Relationship Specialty Start Date End Date Yesy Nagy APRN [address] [place] [address] PCP - General Geriatric Medicine 08/02/22 documented as of this encounter
--- OUTSIDE RECORDS SUMMARY | 2024-09-25 09:14 | XMS_ITS | Encounter Summary ---
Author Organization [facility] [place] [address] Care Team Providers Care Manager Labor Delivery Name Role Phone Yesy Nagy APRN Primary Care Provider +1- [phone] Encounter Details Date Type Department Care Team (Late st Contact Info) Description 04/16/2023 [place] [address] Landy Monson RN Social History [...] discuss concerns. The patient is currently at [facility] ED as he has a piece of [...] are to the front and Right side taoist. No concerns with swallowing,PND,Sinus Sx. o c/o SOB/FUNG. States he has an appt with Dr Schuyler DO on 04/24/2023? Nurse said this was with the Neurologist, not Manager Transplant. The patient thought it was, but would [...] 3:15 PM EDT Office [place] [address] Mika Quiroga MD [facility] [place] [address] Obdulia Coleman MD [facility] [place] [address] documented as of this encounter Goals Goal Patient Goal Type Associated Problems Recent Progress Patient-Stated? Author Self-Management Patient Facing Action Plan No Danica Taylor, [facility] Note: Judson Robe Patel Jr. Is hoping to decrease his prednisone dosage and keep pain levels at a minimum. He is hoping that Actemra will be able to keep him walking since before prednisone he had a hard time standing up and walking around. documented as of this encounter Visit Diagnoses Not on filedocumented in this encounter Care Teams Manager Labor Delivery Relationship Specialty Start Date End Date Yesy Nagy APRN [address] [place] [address] PCP - General Geriatric Medicine 08/02/22 documented as of this encounter
--- OUTSIDE RECORDS SUMMARY | 2024-09-25 09:14 | XMS_ITS | Encounter Summary ---
Author Organization [facility] Address [facility] [place] [address] Care Team Providers Care Fourdrinier Tender Name Role Phone Yesy Nagy APRN Primary Care Provider +1- [phone] Reason for Visit * Reason Onset Date Comments Results 02/26/2023 Encounter Details Date Type Department Care Team (Late st Contact Info) Description 02/26/2023 [place] [phone] Srikanth Morris MD [facility] [place] [address] Results Social History Tobacco Use Types Packs/Day [...] 3:15 PM EDT Office [place] [address] Mika Quiroga MD [facility] [place] [address] Obdulia Coleman MD [facility] [place] [address] documented as of this encounter Goals Goal Patient Goal Type Associated Problems Recent Progress Patient-Stated? Author DH Self-Management Patient Facing Action Plan No Danica Taylor, [facility] Note: Judson Nagel Jorge Funk Is hoping to decrease his prednisone dosage and keep pain levels at a minimum. He is hoping that Actemra will be able to keep him walking since before prednisone he had a hard time standing up and walking around. documented as of this encounter Visit Diagnoses Not on filedocumented in this encounter Care Teams Fourdrinier Tender Relationship Specialty Start Date End Date Yesy Nagy APRN [address] [place] [address] PCP - General Geriatric Medicine 08/02/22 documented as of this encounter
--- OUTSIDE RECORDS SUMMARY | 2024-09-25 09:14 | XMS_ITS | Encounter Summary ---
Author Organization [facility] Address [facility] [place] [address] Care Team Providers Care Cap Lining Machine Operator Name Role Phone Yesy Nagy APRN Primary Care Provider +1- [phone] Reason for Visit * Reason Comments Specialty Pharmacy Review Tocilizumab (A ctemra) Actpen 162mg/0.9mL Encounter Details Date Type Department Care Team (Late st Contact Info) Description 04/25/2023 Specialty [place] [address] Yuliya Booker, [facility] Social History Tobacco Use Types [...] Booker - 04/25/2023 7:52 AM EDT The [facility] has completed a benefits investigation for Judson Patel Jr. to review their eligibility to fill at [facility]. Per patient's medication list they are prescribed Actemra and the medication is currently filled at the [facility]. documented in this encounter Plan of Treatment Upcoming Encounters Date Type Department Care Team (Late st Contact Info) Description 09/25/2024 3:15 PM EDT Office [place] [address] Mika Quiroga MD [facility] [place] [address] Obdulia Coleman MD [facility] [place] [address] documented as of this encounter Goals Goal Patient Goal Type Associated Problems Recent Progress Patient-Stated? Author DH Self-Management Patient Facing Action Plan No Danica Taylor, [facility] Note: Judson Robe Patel Jr. Is hoping to decrease his prednisone dosage and keep pain levels at a minimum. He is hoping that Actemra will be able to keep him walking since before prednisone he had a hard time standing up and walking around. documented as of this encounter Visit Diagnoses Not on filedocumented in this encounter Care Teams Cap Lining Machine Operator Relationship Specialty Start Date End Date Yesy Nagy APRN [address] [facility] [place] [address] PCP - General Geriatric Medicine 08/02/22 documented as of this encounter
--- OUTSIDE RECORDS SUMMARY | 2024-09-25 09:14 | XMS_ITS | Encounter Summary ---
[place] [address] Care Team Providers Care Medical Lead Name Role Phone Yesy Nagy APRN Primary Care Provider +1- [phone] Reason for Visit * Reason Comments Specialty Pharmacy Review Tocilizumab (A ctemra) Actpen 162mg/0.9mL Encounter Details Date Type Department Care Team (Late st Contact Info) Description 01/24/2023 Specialty Pharmacy [place] [address] Yuliya Booker, EXTRACTOR PLANT OPERATOR Social History Tobacco Use Types Packs/Day Years [...] RPH - 01/24/2023 11:02 AM EST The [facility] has completed a benefits investigation for Judson Patel Jr. to review their eligibility to fill at [facility]. Per patient's medication list they are prescribed Actemra and the medication is able to be filled at the [facility]. Judson Patel Jr. elects to fill Actemra at the Specialty Pharmacy. documented in this encounter Plan of Treatment Upcoming Encounters Date Type Department Care Team (Late st Contact Info) Description 09/25/2024 3:15 PM EDT Office Visit [place] [address] Mika Quiroga MD [facility] [place] [place] [address] Obdulia Coleman MD [facility] [place] [address] documented as of this encounter Goals Goal Patient Goal Type Associated Problems Recent Progress Patient-Stated? Author DH Self-Management Patient Facing Action Plan Danica Casillas, [facility] Note: Judson Robe Patel Jr. Is hoping to decrease his prednisone dosage and keep pain levels at a minimum. He is hoping that Actemra will be able to keep him walking since before prednisone he had a hard time standing up and walking around. documented as of this encounter Visit Diagnoses Not on filedocumented in this encounter Care Teams Medical Lead Relationship Specialty Start Date End Date Yesy Nagy APRN [address] [facility] [place] [address] PCP - General Geriatric Medicine 08/02/22 documented as of this encounter
--- OUTSIDE RECORDS SUMMARY | 2024-09-25 09:14 | XMS_ITS | Encounter Summary ---
[facility] [place] [address] Care Team Providers Care Adobe Maker Name Role Phone Yesy Nagy APRN Primary Care Provider +1- [phone] Reason for Visit * Reason Comments Medication Refill Encounter Details Date Type Department Care Team (Late st Contact Info) Description 12/15/2022 Refill [place] [phone] Ananya Payan, [facility] [place] [address] nursing home current use of systemic steroids; GCA (giant [...] 3:15 PM EDT Office [place] [address] Mika Quiroga MD [facility] [place] [address] Obdulia Coleman MD [facility] [place] [address] documented as of this encounter Goals Goal Patient Goal Type Associated Problems Recent Progress Patient-Stated? Author DH Self-Management Patient Facing Action Plan No Danica Taylor, [facility] Note: Judson Nagel Jorge Cisse. Is hoping to decrease his prednisone dosage and keep pain levels at a minimum. He is hoping that Actemra will be able to keep him walking since before prednisone he had a hard time standing up and walking around. documented as of this encounter Visit Diagnoses Diagnosis data communications software consultant current use of systemic steroids Encounter for long-term (current) use of steroids GCA (giant cell arteritis) Giant cell arteritis documented in this encounter Care Teams Adobe Maker Relationship Specialty Start Date End Date Yesy Nagy APRN [address] [place] [address] PCP - General Geriatric Medicine 08/02/22 documented as of this encounter
--- OUTSIDE RECORDS SUMMARY | 2024-09-25 09:14 | XMS_ITS | Encounter Summary ---
Author Organization [facility] [place] [address] Care Team Providers Care Small Stock Facer Name Role Phone Yesy Nagy APRN Primary Care Provider Encounter Details Date Type Department Care Team (Late st Contact Info) Description 03/16/2023 [place] [address] [facility] [place] [address] Social History Tobacco Use Types Packs/Day Years [...] stable. Thony Dee MD Rheumatology Fellow Pager: [phone] documented in this encounter Plan of Treatment Upcoming Encounters Date Type Department Care Team (Late st Contact Info) Description 09/25/2024 3:15 PM EDT Office [place] [address] [facility] [place] [address] [facility] [place] [address] documented as of this encounter Goals Goal Patient Goal Type Associated Problems Recent Progress Patient-Stated? Author DH Self-Management Patient Facing Action Plan No Danica Taylor, [facility] Note: Judson Nagel Jorge Cisse. Is hoping to decrease his prednisone dosage and keep pain levels at a minimum. He is hoping that Actemra will be able to keep him walking since before prednisone he had a hard time standing up and walking around. documented as of this encounter Visit Diagnoses Not on filedocumented in this encounter Care Teams Small Stock Facer Relationship Specialty Start Date End Date Yesy Nagy APRN [address] [facility] [place] [address] PCP - General Geriatric Medicine 08/02/22 documented as of this encounter
--- OUTSIDE RECORDS SUMMARY | 2024-09-25 09:14 | XMS_ITS | Encounter Summary ---
Author Organization [facility] [place] [address] Care Team Providers Care Retail Sales Advisor Name Role Phone Yesy Nagy APRN Primary Care Provider Encounter Details Date Type Department Care Team (Late st Contact Info) Description 12/26/2022 Telephone [place] [address] Ananya Payan DO [facility] [place] [address] Social History Tobacco Use Types Packs/Day Years [...] 3:15 PM EDT Office [place] [address] Mika Quiroga MD [facility] [place] [address] Obdulia Coleman MD [facility] [place] [address] documented as of this encounter Goals Goal [...] on filedocumented in this encounter Care Teams Retail Sales Advisor Relationship Specialty Start Date End Date Yesy Nagy APRN [address] [place] [address] PCP - General Geriatric Medicine 08/02/22 documented as of this encounter
--- OUTSIDE RECORDS SUMMARY | 2024-09-25 09:14 | XMS_ITS | Encounter Summary ---
Author Organization [facility] Address [facility] [place] [address] Care Team Providers Care Rectangular Tank Cooper Name Role Phone Yesy Nagy APRN Primary Care Provider +1- [phone] Reason for Visit * Reason Comments Medication Refill Medication Management Encounter Details Date Type Department Care Team (Late st Contact Info) Description 02/22/2023 Specialty [place] [address] Rico Garcia [facility] Social History Tobacco Use Types [...] this encounter Progress Notes * Rico Garcia [facility] - 02/22/2023 8:49 AM EDT Specialty Pharmacy Consultation; Rico Garcia [facility] Comprehensive Medication Management (CMM): Specialty Consult, Opt [...] consultation on Actemra for the treatment of GCA/ID. Medications, allergies, and medical conditions were reviewed [...] 3:15 PM EDT Office [place] [address] Mika Quiroga MD [facility] [place] [address] Obdulia Coleman MD [facility] [place] [address] documented as of this encounter Goals Goal Patient Goal Type Associated Problems Recent Progress Patient-Stated? Author DH Self-Management Patient Facing Action Plan No Danica Taylor, [facility] Note: Judson Robe Patel Jr. [...] arteritis documented in this encounter Care Teams Rectangular Tank Cooper Relationship Specialty Start Date End Date Yesy Nagy APRN [address] [place] [address] PCP - General Geriatric Medicine 08/02/22 documented as of this encounter
--- OUTSIDE RECORDS SUMMARY | 2024-09-25 09:14 | XMS_ITS | Encounter Summary ---
Author Organization [facility] [place] [address] Care Team Providers Care Electro Mechanical Technologist Name Role Phone Yesy Nagy APRN Primary Care Provider Encounter Details Date Type Department Care Team (Late st Contact Info) Description 11/21/2022 Telephone [place] [address] Ananya Payan [facility] [place] [address] Social History Tobacco Use Types Packs/Day Years [...] 3:15 PM EDT Office [place] [address] Mika Quiroga MD [facility] [place] [address] Obdulia Coleman MD [facility] [place] [address] documented as of this encounter Goals Goal [...] on filedocumented in this encounter Care Teams Electro Mechanical Technologist Relationship Specialty Start Date End Date Yesy Nagy APRN [address] [place] [address] PCP - General Geriatric Medicine 08/02/22 documented as of this encounter
--- OUTSIDE RECORDS SUMMARY | 2024-09-25 09:14 | XMS_ITS | Encounter Summary ---
Author Organization [facility] Address [facility] [place] [address] Care Team Providers Care Technical Applications Scientist Name Role Phone Yesy Nagy MALACHI Primary Care Provider +1- [phone] Reason for Visit * Diagnostic Test (Routine) - Closed Specialty Diagnoses / Procedures Referred By Contac t Referred To Contact Radiology Diagnoses Gait instability Tremor Procedures NM Brain Imaging for Parkinsons Disease Srikanth Morris MD [facility] [place] [address] [place] [address] Referral ID Status Reason Start Date Expiration Date V isits Requested Visits Authorized [id number] Closed Specialty Service Requested 01/23/2023 07/23/2024 1 1 Encounter Details Date Type Department Care Team (Latest Contact Info) Description 02/23/2023 8:24 AM EDT - 02/23/2023 12:29 PM EDT Hospital Encounter [place] [address] Srikanth Morris MD [facility] [place] [address] Discharge Disposition: Home Social History [...] Sig Dispensed Refills Start Date End Date ketoconazole (NIZORAL) 2 % Shampoo .2x/week 02/19/2023 amLODIPine (Norvasc) 5 mg Tablet amlodipine 5 mg tablet TAKE ONE TABLET BY MOUTH EVERY DAY Ascorbic Rvbw-Zgusqeisg-Wny (Emergen-C) 1,000 mg Powder Effervescent in Packet Take by mouth. VITAMIN B COMPLEX-100 ORAL Take by mouth. tamsulosin (FLOMAX) 0.4 mg Capsule, Sust. Release 24 hr Take 0.4 mg by mouth daily. 04/17/2016 aspirin 325 mg Tablet Take 325 mg by mouth daily. cholecalciferol, Vitamin D3, 25 mcg (1,000 unit) Capsule daily. 09/20/2022 metFORMIN XR (Glucophage XR) 500 mg Tablet Sustained Release 24 hr Take 500 mg by mouth daily. 01/01/2023 hydrocortisone 2.5 % Cream APPLY TOPICALLY THREE TIMES A DAY NEEDED FOR SKIN IRRITATION/HEMMORRHOID 01/01/2023 ZINC ORAL Take by mouth. docosahexaenoic acid/epa (FISH OIL ORAL) Take by mouth. predniSONE (Deltasone) 5 mg tabletIndications:GC A (giant [...] mg/0.9 mL Pen InjectorIndications: GCA (giant cell arteritis),FPC current use of systemic steroids Inject 0.9 [...] 3:15 PM EDT Office [place] [address] Mika Quiroga MD [facility] [place] [address] Obdulia Coleman MD [facility] [place] [address] documented as of this encounter Goals Goal Patient Goal Type Associated Problems Recent Progress Patient-Stated? Author DH Self-Management Patient Facing Action Plan No Danica Taylor, [facility] Note: Judson Robe Patel Jr. Is hoping [...] Arm documented in this encounter Care Teams Technical Applications Scientist Relationship Specialty Start Date End Date Yesy Nagy APRN [address] [place] [address] PCP - General Geriatric Medicine 08/02/22 documented as of this encounter
--- OUTSIDE RECORDS SUMMARY | 2024-09-25 09:14 | XMS_ITS | Encounter Summary ---
Author Organization [facility] Address [facility] [place] [address] Care Team Providers Care Stock Broker Name Role Phone Yesy Nagy APRN Primary Care Provider +1- [phone] Encounter Details Date Type Department Care Team (Latest Contact Info) Description 04/12/2023 1:00 PM EDT TH Visit (TeleHealth) [place] [address] Ananya Payan, [facility] [place] [address] GCA (giant cell arteritis); Medication monitoring encounter [...] Dr. Keturah Payan DO Rheumatology Fellow Pager: [phone] * Stephen Payan MD - 04/12/2023 1:00 PM EDT Rheumatology Staff Note I find the assessment and plan of the fellow to be accurate and correct and endorse it Stephen Payan documented in this encounter Plan of Treatment Upcoming Encounters Date Type Department Care Team (Late st Contact Info) Description 09/25/2024 3:15 PM EDT Office [place] [address] Mika Quiroga MD [facility] [place] [address] Obdulia Coleman MD [facility] [place] [address] documented as of this encounter Goals Goal Patient Goal Type Associated Problems Recent Progress Patient-Stated? Author DH Self-Management Patient Facing Action Plan Danica Casillas, [facility] Note: Judson Patel Jr. Is hoping [...] monitoring documented in this encounter Care Teams Stock Broker Relationship Specialty Start Date End Date Yesy Nagy APRN [address] [place] [address] PCP - General Geriatric Medicine 08/02/22 documented as of this encounter
--- OUTSIDE RECORDS SUMMARY | 2024-09-25 09:14 | XMS_ITS | Encounter Summary ---
Author Organization [facility] [place] [address] Care Team Providers Care Benefits Consulting Analyst Name Role Phone Yesy Nagy MALACHI Primary Care Provider [phone] Reason for Visit * Reason Comments Medication Management Patient Education Encounter Details Date Type Department Care Team (Late st Contact Info) Description 01/30/2023 Specialty [place] [phone] Danica Taylor [facility] Social History Tobacco Use Types [...] Requirements: no Medication Reconciliation Discrepancies (compared to [facility] med list) -none Medication List: Current Outpatient [...] OIL ORAL) Take by mouth. ??? Ascorbic Oxiz-Kxhgkkhgv-Zaj (Emergen-C) 1,000 mg Powder Effervescent in Packet [...] specialty services: Yes Patient accepted offer to school counselor: select all, adherence/missed doses, cost of [...] to doctor discussed, reminder to refill or cotton picker medication discussed, self-monitoring discussed, start medication [...] Social Assessment: Does patient have a primary care transition coordinator: No Does patient have an emergency contact on file: Yes Does patient need referral to clinical social worker: No Does patient need referral to advocacy [...] Patient's specific desired goal: Goals ??? Self-Management Judosn Patel Jr. Is hoping to decrease his [...] symptoms of infection, signs and symptoms of BARREL ROLLER OPERATOR demyelinating disorders On a scale of 1-10 the patient rates their quality of life: not rated Care Plan Reviewed and Approved by both Pharmacist and Patient: Yes Interventions (if applicable): No Pharmacist follow-up needed: Yes Delivery Method: Delivery Patient understands no changes to current drug regimen were made at the appointment and [facility] is[facility] (summary located at top of note) for provider review and follow up. Danica Taylor RPH 01/30/23 12:22 PM documented in this encounter Plan of Treatment Upcoming Encounters Date Type Department Care Team (Late st Contact Info) Description 09/25/2024 3:15 PM EDT Office [place] [address] Mika Quiroga MD [facility] [place] [place] [address] Obdulia Coleman MD [facility] [place] [address] documented as of this encounter Goals Goal Patient Goal Type Associated Problems Recent Progress Patient-Stated? Author DH Self-Management Patient Facing Action Plan Danica Casillas, [facility] Note: Judson Nagel Jorge Funk Is hoping to decrease his prednisone dosage and keep pain levels at a minimum. He is hoping that Actemra will be able to keep him walking since before prednisone he had a hard time standing up and walking around. documented as of this encounter Visit Diagnoses Not on filedocumented in this encounter Care Teams Benefits Consulting Analyst Relationship Specialty Start Date End Date Yesy Nagy APRN [address] [place] [address] PCP - General Geriatric Medicine 08/02/22 documented as of this encounter
--- OUTSIDE RECORDS SUMMARY | 2024-09-25 09:14 | XMS_ITS | Encounter Summary ---
Author Organization [facility] [place] [address] Care Team Providers Care Access Nurse Name Role Phone Yesy Nagy APRN Primary Care Provider [phone] Encounter Details Date Type Department Care Team (Late st Contact Info) Description 12/18/2022 [place] [address] Emma Zuñiga LPN Social History [...] LPN - 12/18/2022 3:53 PM EST This writer producer called and spoke with pharmacy in reference [...] 3:15 PM EDT [place] [phone] Mika Quiroga MD [facility] [place] [address] Obdulia Coleman MD [facility] [place] [address] documented as of this encounter Goals Goal Patient Goal Type Associated Problems Recent Progress Patient-Stated? Author DH Self-Management Patient Facing Action Plan No Danica Taylor, [facility] Note: Judson Robe Patel Jr. Is hoping to decrease his prednisone dosage and keep pain levels at a minimum. He is hoping that Actemra will be able to keep him walking since before prednisone he had a hard time standing up and walking around. documented as of this encounter Visit Diagnoses Not on filedocumented in this encounter Care Teams Access Nurse Relationship Specialty Start Date End Date Yesy Nagy APRN [address] [place] [address] PCP - General Geriatric Medicine 08/02/22 documented as of this encounter
--- OUTSIDE RECORDS SUMMARY | 2024-09-25 09:14 | XMS_ITS | Encounter Summary ---
Author Organization [facility] Address [facility] [place] [address] Care Team Providers Care Neon Glass Bender Name Role Phone Yesy Nagy APRN Primary Care Provider [phone] Encounter Details Date Type Department Care Team (Latest Contact Info) Description 01/23/2023 10:30 AM EST Laboratory Appointment Lab [address] [place] [phone] intermodal customer service current use of systemic steroids; GCA (giant [...] 3:15 PM EDT Office [place] [phone] Mika Quiroga MD [facility] [place] [address] Obdulia Coleman MD [facility] [place] [address] documented as of this encounter Goals Goal [...] HC VENIPUNCTURE Routine 01/23/2023 9:59 AM EST intermodal customer service current use of systemic steroids GCA (giant [...] RATE, BLOOD Routine 01/23/2023 9:59 AM EST intermodal customer service current use of systemic steroids GCA (giant cell arteritis) HEPATIC FUNCTION PANEL Routine 01/23/2023 9:59 AM EST documented in this encounter Results * Hepatic Function Panel (01/23/2023 9:59 AM EST) Protein, Total 6.8 6.1 - 8.0 g/dL [facility] Albumin 4.2 3.2 - 5.2 g/dL [facility] Aspartate Aminotransferase 18 0 - 39 unit/L [facility] Alanine Aminotransferase 14 0 - 55 unit/L [facility] Alkaline Phosphatase 64 40 - 130 unit/L [facility] Bilirubin, Total 0.3 0.2 - 1.3 mg/dL [facility] Bilirubin, Direct 0.1 0.0 - 0.3 mg/dL [facility] Blood Venous Draw / Unknown 01/23/2023 9:59 AM EST 01/23/2023 10:10 AM EST Narrative Resulting Agency Comment Spec In Lab Ananya Payan DO CHEMISTRY ORDERABLES Performing Organization Address [facility] Co de Phone Number [facility] [place] [address] * (ABNORMAL) Sedimentation rate (01/23/2023 9:59 AM EST) Pathologist [facility] Sedimentation Rate Automated 51(H) 3 - 46 mm/hr [facility] Comment: Effective November 05, 2019 new capillary photometric technology has resulted in a change in reference ranges. It is recommended that each ESR result be reviewed with its own age appropriate reference range. Blood 01/23/2023 9:59 AM EST 01/23/2023 10:08 AM EST Narrative Resulting Agency Comment Spec In Lab Linda Shaikh DO HEMATOLOGY ORDERAB LES Performing Organization Address [facility] de Phone Number [facility] [place] [address] * HIV Screen, 4th Generation ([facility]/CGP/APD/NLH) (01/23/2023 9:59 AM EST) [facility] HIV Ab/Ag Screen Negative Negative [facility] Comment: This 4th Generation HIV [...] HIV Comment Low Risk of HIV Infection [facility] Blood 01/23/2023 9:59 AM EST 01/23/2023 10:08 AM EST Narrative Resulting Agency Comment Spec In Lab Linda Shaikh DO CHEMISTRY ORDERABL ES Performing Organization Address [facility] Co de Phone Number [facility] [place] [address] * Hepatitis C Antibody (01/23/2023 9:59 AM EST) Hepatitis C Antibody Negative Negative [facility] Blood 01/23/2023 9:59 AM EST 01/23/2023 10:08 AM EST Narrative Resulting Agency Comment Spec In Lab Linda Shaikh DO CHEMISTRY ORDERABL ES Performing Organization Address [facility] Co de Phone Number [facility] [place] [address] * Hepatitis B Surface Antigen (01/23/2023 9:59 AM EST) Hepatitis B Surface Antigen Negative Negative [facility] Blood 01/23/2023 9:59 AM EST 01/23/2023 10:08 AM EST Narrative Resulting Agency Comment Spec In Lab Linda Shaikh DO CHEMISTRY ORDERABL ES Performing Organization Address [facility] Phone Number [facility] [place] [address] * Hepatitis B Surface Antibody (01/23/2023 9:59 AM EST) Hepatitis B Surface Antibody, Quantitative <3.5 IU/L [facility] Comment: HepB Surface Ab Quant: Unvaccinated: < 8.5 IU/L Vaccinated: >= 11.5 IU/L Hepatitis B Surface Antibody Negative [facility] Comment: Expected Results: Vaccinated: Positive Unvaccinated: Negative Patient is presumed to be not vaccinated or immune to HBV infection. Blood 01/23/2023 9:59 AM EST 01/23/2023 10:08 AM EST Narrative Resulting Agency Comment Spec In Lab Linda Shaikh DO CHEMISTRY ORDERABL ES Performing Organization Address [facility] Co de Phone Number [facility] [place] [address] * Hepatitis B Core Antibody, Total (01/23/2023 9:59 AM EST) Hepatitis B Core Antibody Negative Negative [facility] Blood 01/23/2023 9:59 AM EST 01/23/2023 10:08 AM EST Narrative Resulting Agency Comment Spec In Lab Linda Dhillon Neel DO CHEMISTRY ORDERABL ES Performing Organization Address City/[facility]/ZIP Co de Phone Number [facility] [place] [address] * (ABNORMAL) CRP, acute inflammation (01/23/2023 9:59 AM EST) C-Reactive Protein 5.2(H) <=4.9 mg/L [facility] Blood 01/23/2023 9:59 AM EST 01/23/2023 10:08 AM EST Narrative Resulting Agency Comment Spec In Lab Linda Shaikh DO CHEMISTRY ORDERABL ES Performing Organization Address [facility] Co de Phone Number [facility] [place] [address] documented in this encounter Visit Diagnoses Diagnosis longterm current use of systemic steroids Encounter for long-term (current) use of steroids GCA (giant cell arteritis) Giant cell arteritis Immunosuppressed status Unspecified disorder of immune mechanism documented in this encounter Care Teams Neon Glass Bender Relationship Specialty Start Date End Date Yesy Nagy APRN [address] [place] [address] PCP - General Geriatric Medicine 08/02/22 documented as of this encounter
--- OUTSIDE RECORDS SUMMARY | 2024-09-25 09:14 | XMS_ITS | Encounter Summary ---
Author Organization [facility] [place] [address] Care Team Providers Care Immigration Manager Name Role Phone Yesy Nagy APRN Primary Care Provider [phone] Encounter Details Date Type Department Care Team (Latest Contact Info) Description 04/25/2023 10:30 AM EDT TH Visit (TeleHealth) [place] [phone] Ananya Payan DO [facility] [place] [address] GCA (giant cell arteritis); Immunosuppressed status; Medication monitoring encounter; skilled nursing current use of systemic steroids; PMR (polymyalgia [...] Telephone Follow Up Note PCP: Yesy MacLeod, MEMBERSHIP ADVISOR Judson K Jorge Jr. is a 72 y.o. male who we are seeing for the continuing management of GCA. At the outset of this visit, I made them aware that this telephone visit may be billed similar to aclinic visit to him or his insurance company. MR. Patel were in agreement to continue this visit. Total telephone visit time: 2810-2228 for a total 20 minutes. Rheum History: [...] of prednisone. -He was seen by his damage inside adjuster for eye pain last week and was treated for possible conjunctivitis I do not have these records.. He reports that his lpn home health felt that there was contamination from his [...] resuming tocilizumab. Plan - Obtain records from [facility] visit - Continue Prednisone 5mg daily - Hold Tolcilizumab x2 weeks - Continue Calcium and Vit D supplement - Phone follow-up in 2 weeks - Follow up in person in 2 months. Patient was discussed with Dr. Luis Payan DO Rheumatology Fellow Pager: [phone] * Pravin Smith MD - 04/25/2023 10:30 AM EDT Attending Addendum The patient had a TeleHealth visit with Dr. Ananya Payan, rheumatology fellow I. We reviewed the patient's interval history and Dr. Payan's management plan. I agree with Dr. Payan's assessment and plan. I did not directly interact with the patient. Pravin Smith MD Staff Master Steam [employer]acht documented in this encounter Plan of Treatment Upcoming Encounters Date Type Department Care Team (Late st Contact Info) Description 09/25/2024 3:15 PM EDT Office [place] [address] Mika Quiroga MD [facility] [place] [address] Obdulia Coleman MD [facility] [place] [address] documented as of this encounter Goals Goal Patient Goal Type Associated Problems Recent Progress Patient-Stated? Author DH Self-Management Patient Facing Action Plan No Danica Taylor, [facility] Note: Judson Patel Jr. Is [...] monitoring encounter Encounter for therapeutic drug monitoring computer terminal operator current use of systemic steroids Encounter for long-term (current) use of steroids PMR (polymyalgia rheumatica) Polymyalgia rheumatica documented in this encounter Care Teams Immigration Manager Relationship Specialty Start Date End Date Yesy Nagy APRN [address] [place] [address] PCP - General Geriatric Medicine 08/02/22 documented as of this encounter
--- OUTSIDE RECORDS SUMMARY | 2024-09-25 09:14 | XMS_ITS | Encounter Summary ---
Author Organization [facility] Address [facility] [place] [address] Care Team Providers Care General Manager Road Production Name Role Phone Yesy Nagy APRN Primary Care Provider Encounter Details Date Type Department Care Team (Late st Contact Info) Description 01/29/2023 Telephone [place] [phone] Landy Monson RN Social History Tobacco Use [...] 3:15 PM EDT Office Visit [place] [phone] Mika Quiroga MD [facility] [place] [address] Obdulia Coleman MD [facility] RHEUMATOLOGY [place] [address] documented as of this encounter Goals Goal Patient Goal Type Associated Problems Recent Progress Patient-Stated? Author DH Self-Management Patient Facing Action Plan Danica Casillas, [facility] Note: Judson Nagel Jorge Funk Is hoping to decrease his prednisone dosage and keep pain levels at a minimum. He is hoping that Actemra will be able to keep him walking since before prednisone he had a hard time standing up and walking around. documented as of this encounter Visit Diagnoses Not on filedocumented in this encounter Care Teams General Manager Road Production Relationship Specialty Start Date End Date Yesy Nagy APRN [address] [place] [address] PCP - General Geriatric Medicine 08/02/22 documented as of this encounter
--- OUTSIDE RECORDS SUMMARY | 2024-09-25 09:14 | XMS_ITS | Encounter Summary ---
Author Organization [facility] Address [facility] [place] [address] Care Team Providers Care Feltmaker And Weigher Name Role Phone Yesy Nagy APRN Primary Care Provider Encounter Details Date Type Department Care Team (Latest Contact Info) Description 12/04/2022 11:45 AM EST TH Visit (TeleHealth) [place] [address] Ananya Payan DO [facility] [place] [address] GCA (giant cell arteritis) Social History Tobacco [...] by Ananya Payan DO or the rooming assistant branch operations manager as documented in their note. This visit [...] fracture. He is following with Ortho at [facility] for this. He reports pain and swelling [...] CRP ESR. He will do this at [facility] on the when he has a primary [...] Dr. Stephen Payan DO Rheumatology Fellow Pager: [phone] * Stephen Payan MD - 12/04/2022 11:45 [...] 3:15 PM EDT Office [place] [address] Mika Quiroga MD [facility] [place] [address] Obdulia Coleman MD [facility] [place] [address] Scheduled Orders Name Type Priority Associated Diagnoses Orde r Schedule Sedimentation rate Lab Routine GCA (giant cell arteritis) Expected: 12/06/2022 (Approximate), Expires: 06/07/2023 documented as of this encounter Goals Goal Patient Goal Type Associated Problems Recent Progress Patient-Stated? Author DH Self-Management Patient Facing Action Plan No Danica Taylor, [facility] Note: Judson Patel Jr. Is [...] arteritis documented in this encounter Care Teams Feltmaker And Weigher Relationship Specialty Start Date End Date Yesy Nagy APRN [address] [place] [address] PCP - General Geriatric Medicine 08/02/22 documented as of this encounter
--- OUTSIDE RECORDS SUMMARY | 2024-09-25 09:14 | XMS_ITS | Encounter Summary ---
Author Organization [facility] Address [facility] [place] [address] Care Team Providers Care Operations Administrative Assistant Name Role Phone Yesy Nagy APRN Primary Care Provider Encounter Details Date Type Department Care Team (Late st Contact Info) Description 11/22/2022 Telephone [place] [phone] Jennifer Hebert MA Social History Tobacco Use [...] 3:15 PM EDT Office [place] [phone] Mika Quiroga MD [facility] [place] [address] Obdulia Coleman MD [facility] [address] documented as of this encounter Goals Goal Patient Goal Type Associated Problems Recent Progress Patient-Stated? Author DH Self-Management Patient Facing Action Plan No Danica Taylor, [facility] Note: Judson Nagel Jorge Cisse. Is hoping to decrease his prednisone dosage and keep pain levels at a minimum. He is hoping that Actemra will be able to keep him walking since before prednisone he had a hard time standing up and walking around. documented as of this encounter Visit Diagnoses Not on filedocumented in this encounter Care Teams Operations Administrative Assistant Relationship Specialty Start Date End Date Yesy Nayg APRN [address] [place] [address] PCP - General Geriatric Medicine 08/02/22 documented as of this encounter
--- OUTSIDE RECORDS SUMMARY | 2024-09-25 09:14 | XMS_ITS | Encounter Summary ---
Author Organization [facility] Address [facility] [place] [address] Care Team Providers Care Auto Camp Attendant Name Role Phone Yesy Nagy APRN Primary Care Provider [phone] Reason for Visit * Reason Comments Specialty Pharmacy Review Tocilizumab (A ctemra) 162 mg/0.9 mL Pen Injector Encounter Details Date Type Department Care Team (Late st Contact Info) Description 02/26/2023 Specialty [place] [address] Yuliya Booker, [facility] Social History Tobacco Use Types Packs/Day [...] Booker - 02/26/2023 11:59 PM EDT The [facility] has completed a benefits investigation for Judson Patel Jr. to review their eligibility to fill at [facility]. Per patient's medication list they are prescribed Tocilizumab (Actemra) and the medication is currently filled at the [facility]. documented in this encounter Plan of Treatment Upcoming Encounters Date Type Department Care Team (Late st Contact Info) Description 09/25/2024 3:15 PM EDT Office [place] [address] Mika Quiroga MD [facility] [place] [address] Obdulia Coleman MD [facility] [place] [address] documented as of this encounter Goals Goal Patient Goal Type Associated Problems Recent Progress Patient-Stated? Author DH Self-Management Patient Facing Action Plan No Danica Taylor, [facility] Note: Judson Nagel Jorge Funk Is hoping to decrease his prednisone dosage and keep pain levels at a minimum. He is hoping that Actemra will be able to keep him walking since before prednisone he had a hard time standing up and walking around. documented as of this encounter Visit Diagnoses Not on filedocumented in this encounter Care Teams Auto Camp Attendant Relationship Specialty Start Date End Date Yesy Nagy APRN [address] [place] [address] PCP - General Geriatric Medicine 08/02/22 documented as of this encounter
--- OUTSIDE RECORDS SUMMARY | 2024-09-25 09:14 | XMS_ITS | Encounter Summary ---
Author Organization [facility] [place] [address] Care Team Providers Care Electronic Calibration Technician Name Role Phone Yesy Nagy CYBER DEFENSE ANALYST Primary Care Provider [phone] Encounter Details Date Type Department Care Team [...] 3:15 PM EDT Office Visit Rheumatology at [place] [phone] Mika Quiroga MD [facility] [place] [address] Obdulia Coleman MD [facility] [place] [address] documented as of this encounter Goals Goal [...] filedocumented in this encounter Care Teams Electronic Calibration Technician Relationship Specialty Start Date End Date Yesy Nagy APRN [address] [place] [address] PCP - General Geriatric Medicine 08/02/22 documented as of this encounter
--- OUTSIDE RECORDS SUMMARY | 2024-09-25 09:14 | XMS_ITS | Encounter Summary ---
Author Organization [facility] Address [facility] [place] [address] Care Team Providers Care Mill Laborer Name Role Phone Yesy Nagy APRN Primary Care Provider [phone] Reason for Referral * Diagnostic Test (Routine) - Closed Specialty Diagnoses / Procedures Referred By Contac t Referred To Contact Radiology Diagnoses Gait instability Tremor Procedures MRI Brain wo Contrast Greg Vivar MD [facility] [place] [address] [facility] [place] [address] Referral ID Status Reason Start Date Expiration Date V isits Requested Visits Authorized [id number] Closed Specialty Service Requested 01/23/2023 07/23/2024 1 1 * Physical Therapy (Routine) - Closed Specialty Diagnoses / Procedures Referred By Socrates pleitez Referred To Contact Diagnoses Gait instability Greg [facility] [place] [address] Referral ID Status Reason Start Date Expiration Date V isits Requested Visits Authorized [id number] Closed Evaluate and Treat 01/23/2023 07/22/2023 12 12 * Diagnostic Test (Routine) - Closed Specialty Diagnoses / Procedures Referred By Contac t Referred To Contact Radiology Diagnoses Gait instability Tremor Procedures NM Brain Imaging for Parkinsons Disease Greg Vivar MD [facility] [place] [address] [facility] [place] [address] Referral ID Status Reason Start Date Expiration Date V isits Requested Visits Authorized [id number] Closed Specialty Service Requested 01/23/2023 07/23/2024 1 1 Encounter Details Date Type Department Care Team (Late st Contact Info) Description 01/23/2023 9:30 AM EST Office Visit Neurology at [place] [phone] [facility] [place] [address] Gait instability; Tremor Social History Tobacco Use [...] - 01/23/2023 9:30 AM [place] [address] 01/23/2023 Patient name: Judson Patel Jr. Date of : 1950 Referring provider: Ananya Payan, [facility] [place] [address] HISTORY REASON FOR REFERRAL/CHIEF COMPLAINT: Gait instability [...] for PMR/ GCA and has been on intermediate accountant steroids. Was seen in Neurology here in [...] found. 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 He stopped drinking alcohol after [...] OIL ORAL) Take by mouth. ??? Ascorbic Uyfh-Qqfvircqw-Ogm (Emergen-C) 1,000 mg Powder Effervescent in Packet [...] GENERAL THYROID: No results found for: TSH, H0VPCLQ, FREET4, TT4, THYROIDAB, THGAB Folate Lab Results Component Value Date SFOLATE 18.4 06/09/2016 ESR Lab Results Component Value Date SEDRATE 60 (H) 08/08/2022 CRP Lab Results Component Value Date CRP 20.2 (H) 08/08/2022 B12 Lab Results Component Value Date [id number] 08/08/2022 CKNo results found for: CK [...] U -- REFERENCE VALUE -- <1.0 (Negative) MUCK MINER BLASTING Ab, IgG, S <0.2 U -- REFERENCE VALUE -- <1.0 (Negative) Scl 70 Ab, IgG, S 7.6 H U -- REFERENCE VALUE -- <1.0 (Negative) Interpretation: Positive (>=1.0) Megan 1 Ab, IgG, S <0.2 U -- REFERENCE VALUE -- <1.0 (Negative) Test Performed by: [place] [id number] Briquette Molder: Stephen Caldera II, M.D., Ph.D. C3,C4, COMPLEMENTSNo [...] LDLCHOL, LDLDIRECT NIKKI 65No results found for: VYU70CI ANTI GM1,ANTI SGPG, MAG@RESUFAST (MAGAUTOAB,SGPG,MAGWB,GM1AB)@ HEAVY METAL SCREENNo results found for: LEAD, ARSENIC METHYLMLONIC ACIDNo results found for: METHYLMAL IgA, IGG No results found for: IGA, IGG CSF PANEL Lab Results Component Value Date LYMEAB Neg 06/09/2016 PARANEOPLASTIC PANEL No results found for: PARANEOINTRP, ANNA1, ANNA2, ANNA3, AGNA1, PCA1, PCA2, PCATYPETR, AMPHIPHYSIN,XHKW5OVB, STRIATMSCLAB, CACHABPQTYPE, CACHABNTYPE, ACHRBINDAB, NEUROKCHAB, NMDARECEPTOR, NKU26GZ THROMBOSIS HOMEOCYSTEINENo results found for: HOMOCYSTEINE THROMBOSIS PANELNo results found for: ACAIGM, T3TCOQHOIXQ FACTOR V LEIDEN No components found for: FACTORVLEIDEN PROTEIN C,SNo components found for: PROTEINC, PROTEINS ANTITHROMBIN IIINo components found for: ANTITHROMBINIII Miscellaneous Send outsNo results found for: KAROLINECSENDOUT MISCMAYO ASSESSMENT, PLAN & RECOMMENDATIONS ASSESSMENT: 72 Y M with a diagnosis of PMR/ GCA on intermediate accountant steroids, HTN h/o alcoholism peripheral neuropathy referred [...] months. Greg Vivar MD Department of Neurology [facility] documented in this encounter Miscellaneous Notes * Addendum Note - Greg Vivar MD - 01/23/2023 9:30 AM ESTAddended by: GREG VIVAR on: 01/23/2023 09:48 AM Modules accepted: Orders documented in this encounter Plan of Treatment Upcoming Encounters Date Type Department Care Team (Late st Contact Info) Description 09/25/2024 3:15 PM EDT Office [place] [address] Mika Quiroga MD [facility] [place] [address] Obdulia Coleman MD [facility] [place] [address] Scheduled Referrals Name Type Priority Associated Diagnoses Orde r Schedule Referral to Physical Therapy Outpatient Referral Routine Gait instability Ordered: 01/23/2023 documented as of this encounter Goals Goal Patient Goal Type Associated Problems Recent Progress Patient-Stated? Author Self-Management Patient Facing Action Plan No Danica Taylor, [facility] Note: Judson Robe Patel Jr. [...] who have questions please contact the health child care that requested your imaging first. ? Electronically signed by: Seth Guillen MD, [facility] ([phone]), at 02/23/2023 4:35 PM Narrative 02/23/2023 4:35 [...] patients who have questions please contactthe health child care that requested your imaging first. Electronically signed by: eSth Guillen MD, [facility]([phone]), at 02/23/2023 4:35 PM Greg Vivar MD [facility] ORDERABLES * MRI Brain wo Contrast [...] who have questions please contact the health child care that requested your imaging first. ? Electronically signed by: Jack Srinivasan MD, [facility] ([phone]), at 02/23/2023 5:06 PM Narrative 02/23/2023 5:06 [...] and major arteries are normal. Procedure Note Jcak Srinivasan MD - 02/23/2023 EXAMINATION: MRI BRAIN [...] patients who have questions please contactthe health child care that requested your imaging first. Electronically signed by: Jack Srinivasan MD, [facility]([phone]), at 02/23/2023 5:06 PM Greg Vivar MD IMG MRI ORDERABLES documented in this encounter Visit Diagnoses Diagnosis Gait instability Abnormality of gait Tremor Abnormal involuntary movements Gait instability Abnormality of gait Tremor Abnormal involuntary movements Gait instability Abnormality of gait Tremor Abnormal involuntary movements documented in this encounter Care Teams Mill Laborer Relationship Specialty Start Date End Date Yesy Nagy APRN [address] [place] [address] PCP - General Geriatric Medicine 08/02/22 documented as of this encounter
--- OUTSIDE RECORDS SUMMARY | 2024-09-25 09:14 | XMS_ITS | Encounter Summary ---
Author Organization Replaced By [facility] [place] [address] Care Team Providers Care Hand I Tube Bender Name Role Phone Yesy Nagy APRN Primary Care Provider Reason for Referral * Diagnostic Test (Routine) - Closed Specialty Diagnoses / Procedures Referred By Contac t Referred To Contact Radiology Diagnoses Gait instability Tremor Procedures NM Brain Imaging for Parkinsons Disease Srikanth Morris MD [place] [address] [place] [address] Referral ID Status Reason Start Date Expiration Date V isits Requested Visits Authorized [id number] Closed Specialty Service Requested 01/23/2023 07/23/2024 1 1 Reason for Visit * Diagnostic Test (Routine) - Closed Specialty Diagnoses / Procedures Referred By Contac t Referred To Contact Radiology Diagnoses Gait instability Tremor Procedures NM Brain Imaging for Parkinsons Disease Srikanth Morris MD [facility] [place] [address] [place] [address] Referral ID Status Reason Start Date Expiration Date V isits Requested Visits Authorized [id number] Closed Specialty Service Requested 01/23/2023 07/23/2024 1 1 Encounter Details Date Type Department Care Team (Latest Contact Info) Description 02/23/2023 8:23 AM EDT Hospital Encounter [place] [address] Srikanth Morris [place] [address] Gait instability; Tremor Discharge Disposition: Home Social [...] ONE TABLET BY MOUTH EVERY DAY Ascorbic Uuka-Yvaxiuwhy-Txy (Emergen-C) 1,000 mg Powder Effervescent in Packet [...] mg/0.9 mL Pen InjectorIndications: GCA (giant cell arteritis),terminal gauger supervisor current use of 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 Author DH Self-Management Patient Facing Action Plan Danica Casillas, [facility] Note: Judson Patel Jr. Is hoping [...] who have questions please contact the health care navigator that requested your imaging first. ? Narrative [...] patients who have questions please contactthe health care navigator that requested your imaging first. Electronically signed by: Seth [facility]([phone]), at 02/23/2023 4:35 PM Srikanth Morris MD IMG [place] ORDERABLES documented in this encounter Visit [...] mLs documented in this encounter Care Teams Hand I Tube Bender Relationship Specialty Start Date End Date Yesy Nagy APRN [address] [place], [place] [address] [place] [address] PCP - General Geriatric Medicine 08/02/22 documented as of this encounter
--- OUTSIDE RECORDS SUMMARY | 2024-09-25 09:14 | XMS_ITS | Encounter Summary ---
Author Organization [facility] Address [facility] [place] [address] Care Team Providers Care Pipe Straightener Name Role Phone Yesy Nagy APRN Primary Care Provider [phone] Encounter Details Date Type Department Care Team (Late st Contact Info) Description 01/15/2023 Orders [place] [address] Ananya Payan [facility] [place] [address] GCA (giant cell arteritis) Social History Tobacco [...] 3:15 PM EDT Office Visit Rheumatology at [place] [phone] Mika Quiroga MD [facility] [place] [address] Obdulia Coleman MD [facility] [place] [address] Scheduled Orders Name Type Priority Associated Diagnoses Orde r Schedule Sedimentation rate Lab Routine GCA (giant cell arteritis) Expected: 01/15/2023 (Approximate), Expires: 07/17/2023 documented as of this encounter Goals Goal Patient Goal Type Associated Problems Recent Progress Patient-Stated? Author DH Self-Management Patient Facing Action Plan No Danica Taylor, [facility] Note: Judson Nagel Jorge Funk [...] arteritis documented in this encounter Care Teams Pipe Straightener Relationship Specialty Start Date End Date Yesy Nagy APRN [address] [place] [address] PCP - General Geriatric Medicine 08/02/22 documented as of this encounter
--- OUTSIDE RECORDS SUMMARY | 2024-09-25 09:14 | XMS_ITS | Encounter Summary ---
Author Organization [facility] Address [facility] [place] [address] Care Team Providers Care Events Manager Name Role Phone Yesy Nagy APRN Primary Care Provider Encounter Details Date Type Department Care Team (Late st Contact Info) Description 01/23/2023 Orders Only Rheumatology at [place] [phone] Ananya Payan DO [facility] [place] [address] custodial current use of systemic steroids; GCA (giant [...] 3:15 PM EDT Office [place] [address] Mika Quiroga MD [facility] [place] [address] Obdulia Coleman MD [facility] [place] [address] documented as of this encounter Goals Goal Patient Goal Type Associated Problems Recent Progress Patient-Stated? Author Self-Management Patient Facing Action Plan No Danica Taylor, [facility] Note: Judson Nagel Jorge Cisse. Is hoping to decrease his prednisone dosage and keep pain levels at a minimum. He is hoping that Actemra will be able to keep him walking since before prednisone he had a hard time standing up and walking around. documented as of this encounter Visit Diagnoses Diagnosis custodial current use of systemic steroids Encounter for long-term (current) use of steroids GCA (giant cell arteritis) Giant cell arteritis Medication monitoring encounter Encounter for therapeutic drug monitoring documented in this encounter Care Teams Events Manager Relationship Specialty Start Date End Date Yesy Nagy APRN [address] [place] [address] PCP - General Geriatric Medicine 08/02/22 documented as of this encounter
--- OUTSIDE RECORDS SUMMARY | 2024-09-25 09:14 | XMS_ITS | Encounter Summary ---
Author Organization [facility] Address [facility] [place] [address] Care Team Providers Care Terrazzo Polisher Helper Name Role Phone Yesy Nagy APRN Primary Care Provider [phone] Reason for Visit * Reason Comments Specialty Pharmacy Review Tocilizumab (A ctemra) Actpen 162mg/0.9mL Encounter Details Date Type Department Care Team (Late st Contact Info) Description 04/12/2023 Specialty [place] [address] Yuliya Booker, [facility] Social History Tobacco Use Types Packs/Day [...] Booker - 04/12/2023 11:59 PM EDT The [facility] has completed a benefits investigation for Judson Patel Jr. to review their eligibility to fill at [facility]. Per patient's medication list they are prescribed Actemra and the medication is currently filled at the [facility]. documented in this encounter Plan of Treatment Upcoming Encounters Date Type Department Care Team (Late st Contact Info) Description 09/25/2024 3:15 PM EDT Office [place] [address] Mika Quiroga MD [facility] [place] [address] Obdulia Coleman MD [facility] [place] [place] [address] documented as of this encounter Goals Goal Patient Goal Type Associated Problems Recent Progress Patient-Stated? Author DH Self-Management Patient Facing Action Plan No Danica Taylor, [facility] Note: Judson Robe Patel Jr. Is hoping to decrease his prednisone dosage and keep pain levels at a minimum. He is hoping that Actemra will be able to keep him walking since before prednisone he had a hard time standing up and walking around. documented as of this encounter Visit Diagnoses Not on filedocumented in this encounter Care Teams Terrazzo Polisher Helper Relationship Specialty Start Date End Date Yesy Nagy APRN [address] [place] [address] PCP - General Geriatric Medicine 08/02/22 documented as of this encounter
--- OUTSIDE RECORDS SUMMARY | 2024-09-25 09:14 | XMS_ITS | Encounter Summary ---
Author Organization [facility] Address [facility] [place] [address] Care Team Providers Care Supervisor Silvering Department Name Role Phone Yesy Nagy APRN Primary Care Provider Encounter Details Date Type Department Care Team (Late st Contact Info) Description 12/15/2022 Telephone [place] [phone] Flaquita Ricks, RN Social History Tobacco Use [...] 3:15 PM EDT Office [place] [phone] Mika Quiroga MD [facility] [place] [place] [address] Obdulia Coleman MD [facility] [place] [address] documented as of this encounter Goals Goal [...] on filedocumented in this encounter Care Teams Supervisor Silvering Department Relationship Specialty Start Date End Date Yesy Nagy APRN [address] [place] [address] PCP - General Geriatric Medicine 08/02/22 documented as of this encounter
--- OUTSIDE RECORDS SUMMARY | 2024-09-25 09:14 | XMS_ITS | Encounter Summary ---
Author Organization [place] [address] Care Team Providers Care Fittings Tightener Name Role Phone Yesy Nagy APRN Primary Care Provider Encounter Details Date Type Department Care Team (Late st Contact Info) Description 01/30/2023 Orders [place] [address] Danica Taylor, [facility] Social History Tobacco Use Types [...] 3:15 PM EDT Office Visit [place] [address] Mika Quiroga MD [facility] [place] [address] Obdulia Coleman MD [facility] [place] [address] documented as of this encounter Goals Goal [...] on filedocumented in this encounter Care Teams Fittings Tightener Relationship Specialty Start Date End Date Yesy Nagy APRN [address] [place] [address] PCP - General Geriatric Medicine 08/02/22 documented as of this encounter
--- OUTSIDE RECORDS SUMMARY | 2024-09-25 09:14 | XMS_ITS | Encounter Summary ---
Author Organization [facility] Address [facility] [place] [address] Care Team Providers Care Tax Collector Name Role Phone Yesy Nagy APRN Primary Care Provider [phone] Reason for Referral * Diagnostic Test (Routine) - Closed Specialty Diagnoses / Procedures Referred By Contac t Referred To Contact Radiology Diagnoses Gait instability Tremor Procedures MRI Brain wo Contrast Srikanth Morris MD [facility] [place] [address] [place] [address] Referral ID Status Reason Start Date Expiration Date V isits Requested Visits Authorized [id number] Closed Specialty Service Requested 01/23/2023 07/23/2024 1 1 Reason for Visit * Diagnostic Test (Routine) - Closed Specialty Diagnoses / Procedures Referred By Contac t Referred To Contact Radiology Diagnoses Gait instability Tremor Procedures MRI Brain wo Contrast Srikanth Morris MD [facility] [place] [address] [place] [address] Referral ID Status Reason Start Date Expiration Date V isits Requested Visits Authorized [id number] Closed Specialty Service Requested 01/23/2023 07/23/2024 1 1 Encounter Details Date Type Department Care Team (Latest Contact Info) Description 02/23/2023 12:30 PM EDT - 02/23/2023 1:41 PM EDT Hospital [place] [address] Srikanth Morris MD [facility] [place] [address] Gait instability; Tremor Discharge Disposition: Home Social [...] ONE TABLET BY MOUTH EVERY DAY Ascorbic Shex-Pottjuyuc-Pxb (Emergen-C) 1,000 mg Powder Effervescent in Packet [...] 3:15 PM EDT Office [place] [address] Mika Quiroga MD [facility] [place] [address] Obdulia Coleman MD [facility] [place] [address] documented as of this encounter Goals Goal Patient Goal Type Associated Problems Recent Progress Patient-Stated? Author DH Self-Management Patient Facing Action Plan No Danica Taylor, [facility] Note: Judson Nagel Jorge Funk [...] who have questions please contact the health manager respiratory care that requested your imaging first. ? Electronically signed by: Jack Srinivasan MD, [facility] ([phone]), at 02/23/2023 5:06 PM Narrative 02/23/2023 5:06 [...] patients who have questions please contactthe health manager respiratory care that requested your imaging first. Electronically signed by: Jack Srinivasan MD, [facility]([phone]), at 02/23/2023 5:06 PM Srikanth Morris MD IMG MRI ORDERABLES documented in this encounter Visit Diagnoses Diagnosis Gait instability Abnormality of gait Tremor Abnormal involuntary movements documented in this encounter Care Teams Tax Collector Relationship Specialty Start Date End Date Yesy Nagy APRN [address] [place] [address] PCP - General Geriatric Medicine 08/02/22 documented as of this encounter
--- OUTSIDE RECORDS SUMMARY | 2024-09-25 09:14 | XMS_ITS | Encounter Summary ---
Author Organization [facility] [place] [address] Care Team Providers Care Technologist Infectious Disease Name Role Phone Yesy Nagy APRN Primary Care Provider Encounter Details Date Type Department Care Team (Late st Contact Info) Description 11/21/2022 Telephone [place] [address] Ananya Payan [facility] [place] [address] Social History Tobacco Use Types Packs/Day Years [...] 3:15 PM EDT Office [place] [address] Mika Quiroga MD [facility] [place] [place] [address] Obdulia Coleman MD [facility] [place] [address] documented as of this encounter Goals Goal [...] on filedocumented in this encounter Care Teams Technologist Infectious Disease Relationship Specialty Start Date End Date Yesy Nagy APRN [address] [place] [address] PCP - General Geriatric Medicine 08/02/22 documented as of this encounter
--- OUTSIDE RECORDS SUMMARY | 2024-09-25 09:14 | XMS_ITS | Encounter Summary ---
Author Organization [facility] Address [facility] [place] [address] Care Team Providers Care Welding Machine Operator Electron Beam Name Role Phone Yesy Nagy MALACHI Primary Care Provider [phone] Reason for Visit * Diagnostic Test (Routine) - Closed Specialty Diagnoses / Procedures Referred By Contac t Referred To Contact Radiology Diagnoses Gait instability Tremor Procedures NM Brain Imaging for Parkinsons Disease Srikanth Morris MD [facility] [place] [address] [place] [address] Referral ID Status Reason Start Date Expiration Date V isits Requested Visits Authorized [id number] Closed Specialty Service Requested 01/23/2023 07/23/2024 1 1 Encounter Details Date Type Department Care Team (Latest Contact Info) Description 02/23/2023 1:42 PM EDT - 02/23/2023 11:59 PM EDT Hospital Encounter [place] [address] Srikanth Morris MD [facility] [place] [address] Discharge Disposition: Home Social History [...] ONE TABLET BY MOUTH EVERY DAY Ascorbic Diwm-Qdjntvqnd-Tbp (Emergen-C) 1,000 mg Powder Effervescent in Packet [...] mg/0.9 mL Pen InjectorIndications: GCA (giant cell arteritis),alf current use of systemic steroids Inject 0.9 [...] 3:15 PM EDT Office [place] [address] Mika Quiroga MD [facility] [place] [address] Obdulia Coleman MD [facility] [place] [address] documented as of this encounter Goals Goal Patient Goal Type Associated Problems Recent Progress Patient-Stated? Author DH Self-Management Patient Facing Action Plan No Danica Taylor, [facility] Note: Judson Nagel Jorge Funk [...] who have questions please contact the health post acute care registered nurse that requested your imaging first. ? Electronically signed by: Seth Guillen MD, [facility] ([phone]), at 02/23/2023 4:35 PM Narrative 02/23/2023 4:35 [...] patients who have questions please contactthe health post acute care registered nurse that requested your imaging first. Electronically signed by: Seth Guillen MD, [facility]([phone]), at 02/23/2023 4:35 PM Srikanth Morris MD IMG NM ORDERABLES documented in this encounter Visit Diagnoses Not on filedocumented in this encounter Care Teams Welding Machine Operator Electron Beam Relationship Specialty Start Date End Date Yesy Nagy APRN [address] [place] [address] PCP - General Geriatric Medicine 08/02/22 documented as of this encounter
--- OUTSIDE RECORDS SUMMARY | 2024-09-25 09:14 | XMS_ITS | Encounter Summary ---
Author Organization [facility] Address [facility] [place] [address] Care Team Providers Care Deliverer Merchandise Name Role Phone Yesy Nagy APRN Primary Care Provider Encounter Details Date Type Department Care Team (Late st Contact Info) Description 03/14/2023 Telephone [place] [phone] Thony Dee MD [facility] [place] [address] Social History Tobacco Use Types Packs/Day Years [...] us. He will call the lab at [facility] to fax them. Thony Dee MD Rheumatology Fellow Pager: [phone] documented in this encounter Plan of Treatment Upcoming Encounters Date Type Department Care Team (Late st Contact Info) Description 09/25/2024 3:15 PM EDT Office Visit [place] [address] Mika Quiroga MD [facility] [place] [address] Obdulia Coleman MD [facility] [place] [address] documented as of this encounter Goals Goal [...] on filedocumented in this encounter Care Teams Deliverer Merchandise Relationship Specialty Start Date End Date Yesy Nagy APRN [address] [place] [address] PCP - General Geriatric Medicine 08/02/22 documented as of this encounter
--- OUTSIDE RECORDS SUMMARY | 2024-09-25 09:14 | XMS_ITS | Encounter Summary ---
Author Organization [facility] Address [facility] [place] [address] Care Team Providers Care Project Mgr Name Role Phone Yesy Nagy APRN Primary Care Provider Encounter Details Date Type Department Care Team (Late st Contact Info) Description 01/22/2023 Orders Only Rheumatology at [place] [phone] Ananya Payan DO [facility] [place] [address] senior care current use of systemic steroids; GCA (giant [...] 3:15 PM EDT Office Visit Rheumatology at [place] [phone] Mika Quiroga MD [facility] [place] [address] Obdulia Coleman MD [facility] [place] [address] documented as of this encounter Goals Goal Patient Goal Type Associated Problems Recent Progress Patient-Stated? Author DH Self-Management Patient Facing Action Plan No Danica Taylor, [facility] Note: Judson Patel Jr. Is hoping to decrease his prednisone dosage and keep pain levels at a minimum. He is hoping that Actemra will be able to keep him walking since before prednisone he had a hard time standing up and walking around. documented as of this encounter Results * (ABNORMAL) Sedimentation rate (01/23/2023 9:59 AM EST) Sedimentation Rate Automated 51(H) 3 - 46 mm/hr [facility] Comment: Effective November 05, 2019 new capillary photometric technology has resulted in a change in reference ranges. It is recommended that each ESR result be reviewed with its own age appropriate reference range. Blood 01/23/2023 9:59 AM EST 01/23/2023 10:08 AM EST Narrative Resulting Agency Comment Spec In Lab Linda Shaikh DO HEMATOLOGY ORDERAB LES Performing Organization Address [facility] Co de Phone Number [facility] [place] [address] * (ABNORMAL) CRP, acute inflammation (01/23/2023 9:59 AM EST) C-Reactive Protein 5.2(H) <=4.9 mg/L [facility] Blood 01/23/2023 9:59 AM EST 01/23/2023 10:08 AM EST Narrative Resulting Agency Comment Spec In Lab Linda Shaikh DO CHEMISTRY ORDERABL ES Performing Organization Address [facility] Co de Phone Number [facility] [place] [address] documented in this encounter Visit Diagnoses Diagnosis senior care current use of systemic steroids Encounter for long-term (current) use of steroids GCA (giant cell arteritis) Giant cell arteritis documented in this encounter Care Teams Project Mgr Relationship Specialty Start Date End Date Yesy Nagy APRN [address] [facility] [place] [address] PCP - General Geriatric Medicine 08/02/22 documented as of this encounter
--- OUTSIDE RECORDS SUMMARY | 2024-09-25 09:14 | XMS_ITS | Encounter Summary ---
Author Organization [facility] Address [facility] [place] [address] Care Team Providers Care Senior Environmental Engineer Name Role Phone Yesy Nagy APRN Primary Care Provider Encounter Details Date Type Department Care Team (Late st Contact Info) Description 01/23/2023 Telephone [place] [phone] Ananya Payan DO [facility] [place] [address] Social History Tobacco Use Types Packs/Day Years [...] of infection. We discussed side effects of terminal system operator prednisone: osteoporosis, HTN, DM, cataracts and how it is important to taper off the prednisone. Pt now agreeable to actemra. - will rx actemra 162 mg q 7 days documented in this encounter Plan of Treatment Upcoming Encounters Date Type Department Care Team (Late st Contact Info) Description 09/25/2024 3:15 PM EDT Office [place] [address] Mika Quiroga MD [facility] [place] [place] [address] Obdluia Coleman MD [facility] [place] [address] documented as of this encounter Goals Goal [...] GCA (giant cell arteritis) Giant cell arteritis terminal makeup operator current use of systemic steroids Encounter for long-term (current) use of steroids documented in this encounter Care Teams Senior Environmental Engineer Relationship Specialty Start Date End Date Yesy Nagy APRN [address] [place] [address] PCP - General Geriatric Medicine 08/02/22 documented as of this encounter
--- OUTSIDE RECORDS SUMMARY | 2024-09-25 09:14 | XMS_ITS | Encounter Summary ---
Author Organization [facility] Address [facility] [place] [address] Care Team Providers Care Embossing Tool Setter Name Role Phone Yesy Nagy APRN Primary Care Provider [phone] Encounter Details Date Type Department Care Team (Late st Contact Info) Description 03/14/2023 Telephone [place] [address] Landy Monson RN Social History [...] 3:15 PM EDT Office [place] [address] Mika Quiroga MD [facility] [place] [address] Obdulia Coleman MD [facility] [place] [address] documented as of this encounter Goals Goal Patient Goal Type Associated Problems Recent Progress Patient-Stated? Author DH Self-Management Patient Facing Action Plan Danica Casillas, [facility] Note: Judson Robe Patel Jr. Is hoping to decrease his prednisone dosage and keep pain levels at a minimum. He is hoping that Actemra will be able to keep him walking since before prednisone he had a hard time standing up and walking around. documented as of this encounter Visit Diagnoses Not on filedocumented in this encounter Care Teams Embossing Tool Setter Relationship Specialty Start Date End Date Yesy Nagy APRN [address] [place] [address] PCP - General Geriatric Medicine 08/02/22 documented as of this encounter
--- OUTSIDE RECORDS SUMMARY | 2024-09-25 09:14 | XMS_ITS | Encounter Summary ---
Author Organization [facility] [place] [address] Care Team Providers Care Pamphlet Distributor Name Role Phone Yesy Nagy APRN Primary Care Provider Reason for Referral * Consultation (STAT) - Closed Specialty Diagnoses / Procedures Referred By Contaugustin t Referred To Contact Dermatology Diagnoses Candidal paronychia Yesy Nagy APRN [address] [place] [address] [facility] Dermatology [address] [place] [address] Referral ID Status Reason Start Date Expiration Date V isits Requested Visits Authorized [id number] Closed Consult, Test & Treat 05/07/2023 05/06/2024 1 1 Encounter Details Date Type Department Care Team (Latest Contact Info) Description 05/07/2023 Transcribe Orders eDH Incoming Referrals [phone] Yesy Nagy APRN [address] [place], [place] [address] Candidal paronychia Social History Tobacco Use Types [...] 3:15 PM EDT Office [place] [address] Mika Quiroga MD [facility] [place] [address] Obdulia Coleman MD [facility] [place] [address] Scheduled Referrals Name Type Priority Associated Diagnoses Order Schedule Referral to Dermatology Outpatient Referral Routine Candidal paronychia Ordered: 05/07/2023 documented as of this encounter Goals Goal Patient Goal Type Associated Problems Recent Progress Patient-Stated? Author DH Self-Management Patient Facing Action Plan No Danica Taylor, [facility] Note: Judson Nagel Jorge Funk [...] nails documented in this encounter Care Teams Pamphlet Distributor Relationship Specialty Start Date End Date Yesy Nagy APRN [address] [place] [address] PCP - General Geriatric Medicine 08/02/22 documented as of this encounter
--- OUTSIDE RECORDS SUMMARY | 2024-09-25 09:14 | XMS_ITS | Encounter Summary ---
Author Organization [facility] Address [facility] [place] [address] Care Team Providers Care Sheet Metal Welder Name Role Phone Yesy Nagy APRN Primary Care Provider Encounter Details Date Type Department Care Team (Late st Contact Info) Description 01/15/2023 [place] [address] Dayna Paez, RN Social History [...] that I will have labs sent to [facility] to check his inflammatory marker and advisehim [...] 3:15 PM EDT [place] [address] Mika Quiroga MD [facility] [place] [address] Obdulia Coleman MD [facility] [place] [address] documented as of this encounter Goals Goal Patient Goal Type Associated Problems Recent Progress Patient-Stated? Author DH Self-Management Patient Facing Action Plan No Danica Taylor, [facility] Note: Judson Patel . Is hoping to decrease his prednisone dosage and keep pain levels at a minimum. He is hoping that Actemra will be able to keep him walking since before prednisone he had a hard time standing up and walking around. documented as of this encounter Visit Diagnoses Not on filedocumented in this encounter Care Teams Sheet Metal Welder Relationship Specialty Start Date End Date Yesy Nagy APRN [address] [place] [address] PCP - General Geriatric Medicine 08/02/22 documented as of this encounter
--- OUTSIDE RECORDS SUMMARY | 2024-09-25 09:14 | XMS_ITS | Encounter Summary ---
Author Organization [facility] [place] [address] Care Team Providers Care Mortgage Collector Name Role Phone Yesy Nagy APRN Primary Care Provider [phone] Encounter Details Date Type Department Care Team (Latest Contact Info) Description 02/06/2023 4:30 PM EDT TH Visit (TeleHealth) [place] [address] Ananya Payan, [facility] [place] [address] GCA (giant cell arteritis); Medication monitoring encounter; intermodal customer service current use of systemic steroids; Immunosuppressed status [...] 30 mg and taper. Patient has a jute bag clipper, recommend he call the office to schedule [...] inflammatory markers CRP ESR, labs sent to [facility] H - follow up with eye clinic -We will follow-up in 3 weeks Patient was discussed with Dr. Andres Payan DO, PGY4 Rheumatology Fellow Pager: [phone] * Tess Morse MD - 02/06/2023 4:30 [...] recently started on Actemra. Tess Morse MD [email or web address]$ documented in this encounter Miscellaneous Notes * Addendum Note - Tess Morse MD - 02/06/2023 4:30 PM EDTAddended by: TESS MORSE on: 02/07/2023 04:34 PM Modules accepted: Level of Service documented in this encounter Plan of Treatment Upcoming Encounters Date Type Department Care Team (Late st Contact Info) Description 09/25/2024 3:15 PM EDT Office Visit [place] [address] Mika Quiroga MD [facility] [place] [address] Obdulia Coleman MD [facility] [place] [address] documented as of this encounter Goals Goal Patient Goal Type Associated Problems Recent Progress Patient-Stated? Author DH Self-Management Patient Facing Action Plan No Danica Taylor, [facility] Note: Judson Robe Patel Jr. [...] monitoring encounter Encounter for therapeutic drug monitoring intermodal customer service current use of systemic steroids Encounter for long-term (current) use of steroids Immunosuppressed status Unspecified disorder of immune mechanism documented in this encounter Care Teams Mortgage Collector Relationship Specialty Start Date End Date Yesy Nagy APRN [address] [place] [address] PCP - General Geriatric Medicine 08/02/22 documented as of this encounter
--- OUTSIDE RECORDS SUMMARY | 2024-09-25 09:14 | XMS_ITS | Encounter Summary ---
Author Organization [facility] [place] [address] Care Team Providers Care Supervisor Phosphatic Fertilizer Name Role Phone Yesy Nagy APRN Primary Care Provider Encounter Details Date Type Department Care Team (Late st Contact Info) Description 05/08/2023 Telephone [place] [address] Ananya Payan DO [facility] [place] [address] Social History Tobacco Use Types [...] 3:15 PM EDT Office [place] [address] Mika Quiroga MD [facility] [place] [address] Obdulia Coleman MD [facility] [place] [address] documented as of this encounter Goals Goal [...] filedocumented in this encounter Care Teams Supervisor Phosphatic Fertilizer Relationship Specialty Start Date End Date Yesy Nagy APRN [address] [place] [address] PCP - General Geriatric Medicine 08/02/22 documented as of this encounter
--- OUTSIDE RECORDS SUMMARY | 2024-09-25 09:14 | XMS_ITS | Encounter Summary ---
Author Organization [facility] Address [facility] [place] [address] Care Team Providers Care Urgent Care Nurse Practitioner Name Role Phone Yesy Nagy APRN Primary Care Provider [phone] Reason for Visit * Reason Comments Specialty Refill Management Medication Management Encounter Details Date Type Department Care Team (Late st Contact Info) Description 03/20/2023 Specialty [place] [address] Rayne Vigil, VIDEO JOURNALIST Social History Tobacco Use Types Packs/Day Years [...] Plan: Refill Specialty Pharmacy Consultation; Anil Medeiros [facility] Comprehensive Medication Management (CMM) Judson Patel Jr. [...] beneficiary Provider: plan sponsor [facility] Follow[facility] Time Spent: 1-15 min Method of Contact: by telephone Cognitive Ability: good Allergies and Drug intolerance: No Known Allergies Medication Reconciliation Discrepancies (compared to [facility] med list) -none Specialty Pharmacy Refill Questionnaire 03/20/2023 Refill Questionnaire What is the name of the specialty medication you are refilling? Actemra Are you taking any new medications? No Any new medical condition? Yes Please explain problem with iban pt transferred to [facility] Anil Any new allergies? No Any missed [...] appointment and that [facility] is providing recommendations (summary located at top of note) for provider review and follow up. Anil Medeiros Arabella 03/20/23 10:47 AM documented in this encounter Plan of Treatment Upcoming Encounters Date Type Department Care Team (Late st Contact Info) Description 09/25/2024 3:15 PM EDT Office [place] [address] Mika Quiroga MD [facility] [place] [address] Obdulia Coleman MD [facility] [place] [address] documented as of this encounter Goals Goal [...] on filedocumented in this encounter Care Teams Urgent Care Nurse Practitioner Relationship Specialty Start Date End Date Yesy Nagy APRN [address] [place] [address] PCP - General Geriatric Medicine 08/02/22 documented as of this encounter
--- OUTSIDE RECORDS SUMMARY | 2024-09-25 09:14 | XMS_ITS | Encounter Summary ---
Author Organization [facility] [place] [address] Care Team Providers Care Track Machine Operator Repairer Name Role Phone Yesy Nagy TIP MENDER Primary Care Provider [phone] Encounter Details Date Type Department Care Team [...] 3:15 PM EDT Office Visit Rheumatology at [place] [phone] Mika Quiroga MD [facility] [place] [address] Obdulia Coleman MD [facility] [place] [address] documented as of this encounter Goals Goal [...] on filedocumented in this encounter Care Teams Track Machine Operator Repairer Relationship Specialty Start Date End Date Yesy Nagy APRN [address] [place] [address] PCP - General Geriatric Medicine 08/02/22 documented as of this encounter
--- OUTSIDE RECORDS SUMMARY | 2024-09-25 09:14 | XMS_ITS | Encounter Summary ---
Author Organization [facility] Address [facility] [place] [address] Care Team Providers Care Media/Instructional Designer Name Role Phone Yesy Nagy APRN Primary Care Provider Encounter Details Date Type Department Care Team (Late st Contact Info) Description 01/31/2023 Telephone [place] [address] Danica Taylor Arabella Social History Tobacco Use Types Packs/Day Years [...] Notes * Telephone Encounter - Danica Taylor RPH - 01/31/2023 2:55 PM EST I spoke with patient regarding Actemra again. He's worried about starting Actemra and being on it for a while. He asked why he just can't stay on prednisone. I explained that prednisone has a lot of long-term effects such as developing type 2 diabetes, osteoporosis, GI effects, ocular effects, cushingoid features, cardiovascular effects, etc that Actemra does not have. Prednisone isn't a long-term solution and Actemra works really well in [...] 3:15 PM EDT Office Visit [place] [address] Mika Quiroga MD [facility] [place] [address] Obdulia Coleman MD [facility] [place] [address] documented as of this encounter Goals Goal Patient Goal Type Associated Problems Recent Progress Patient-Stated? Author DH Self-Management Patient Facing Action Plan No Danica Taylor, [facility] Note: Judson Nagel Jorge Funk Is hoping to decrease his prednisone dosage and keep pain levels at a minimum. He is hoping that Actemra will be able to keep him walking since before prednisone he had a hard time standing up and walking around. documented as of this encounter Visit Diagnoses Not on filedocumented in this encounter Care Teams Media/Instructional Designer Relationship Specialty Start Date End Date Yesy Nagy APRN [address] [place] [address] PCP - General Geriatric Medicine 08/02/22 documented as of this encounter
--- OUTSIDE RECORDS SUMMARY | 2024-09-25 09:14 | XMS_ITS | Encounter Summary ---
Author Organization [facility] [place] [address] Care Team Providers Care Sign Erector Name Role Phone Yesy Nagy APRN Primary Care Provider [phone] Encounter Details Date Type Department Care Team (Late st Contact Info) Description 05/09/2023 Telephone [place] [address] Landy Monson RN Social History [...] 3:15 PM EDT Office [place] [address] Mika Quiroga MD [facility] [place] [address] Obdulia Coleman MD [facility] [place] [address] documented as of this encounter Goals Goal Patient Goal Type Associated Problems Recent Progress Patient-Stated? Author DH Self-Management Patient Facing Action Plan No Danica Taylor, [facility] Note: Judson Robe Patel Jr. Is hoping to decrease his prednisone dosage and keep pain levels at a minimum. He is hoping that Actemra will be able to keep him walking since before prednisone he had a hard time standing up and walking around. documented as of this encounter Visit Diagnoses Not on filedocumented in this encounter Care Teams Sign Erector Relationship Specialty Start Date End Date Yesy Nagy APRN [address] [place] [address] PCP - General Geriatric Medicine 08/02/22 documented as of this encounter
--- OUTSIDE RECORDS SUMMARY | 2024-09-25 09:14 | XMS_ITS | Encounter Summary ---
Author Organization [facility] Address [facility] [place] [address] Care Team Providers Care Cotton Picker Operator Name Role Phone Yesy Nagy APRN Primary Care Provider [phone] Reason for Visit * Reason Comments Specialty Refill Management Encounter Details Date Type Department Care Team (Late st Contact Info) Description 04/17/2023 Specialty Pharmacy [place] [phone] Winifred Crisostomo RPH Social History Tobacco Use [...] Known Allergies Medication Reconciliation Discrepancies (compared to [facility] med list) No Specialty Pharmacy Refill Questionnaire [...] 3:15 PM EDT Office Visit [place] [address] Mika Quiroga MD [facility] [place] [address] Obdulia Coleman MD [facility] [place] [address] documented as of this encounter Goals Goal Patient Goal Type Associated Problems Recent Progress Patient-Stated? Author DH Self-Management Patient Facing Action Plan No Danica Taylor [facility] Note: Judson Robe Patel Jr. Is hoping to decrease his prednisone dosage and keep pain levels at a minimum. He is hoping that Actemra will be able to keep him walking since before prednisone he had a hard time standing up and walking around. documented as of this encounter Visit Diagnoses Not on filedocumented in this encounter Care Teams Cotton Picker Operator Relationship Specialty Start Date End Date Yesy Nagy APRN [address] [place] [address] PCP - General Geriatric Medicine 08/02/22 documented as of this encounter
--- OUTSIDE RECORDS SUMMARY | 2024-09-25 09:14 | XMS_ITS | Encounter Summary ---
Author Organization [facility] [place] [address] Care Team Providers Care Loan Underwriter Name Role Phone Yesy Nagy APRN Primary Care Provider Encounter Details Date Type Department Care Team (Late st Contact Info) Description 11/21/2022 [place] [address] Landy Monson RN Social History [...] -We will send labs ESR CRP to [facility]. Patient advised if he is [...] 3:15 PM EDT [place] [address] Mika Quiroga MD [facility] [place] [place] [address] Obdulia Coleman MD [facility] [address] documented as of this encounter Goals Goal Patient Goal Type Associated Problems Recent Progress Patient-Stated? Author DH Self-Management Patient Facing Action Plan No Danica Taylor, [facility] Note: Judson Nagel Jorge Funk Is hoping to decrease his prednisone dosage and keep pain levels at a minimum. He is hoping that Actemra will be able to keep him walking since before prednisone he had a hard time standing up and walking around. documented as of this encounter Visit Diagnoses Not on filedocumented in this encounter Care Teams Loan Underwriter Relationship Specialty Start Date End Date Yesy Nag[place] [address] PCP - General Geriatric Medicine 08/02/22 documented as of this encounter
--- OUTSIDE RECORDS SUMMARY | 2024-09-25 09:14 | XMS_ITS | Encounter Summary ---
Author Organization [facility] Address [facility] [place] [address] Care Team Providers Care Career Development Facilitator Name Role Phone Yesy Nagy APRN Primary Care Provider Encounter Details Date Type Department Care Team (Late st Contact Info) Description 11/21/2022 Orders Only Rheumatology at [place] [phone] Ananya Payan [facility] [place] [address] GCA (giant cell arteritis) Social History Tobacco [...] 3:15 PM EDT Office Visit Rheumatology at [place] [phone] Mika Quiroga MD [facility] [place] [address] Obdulia Coleman MD [facility] [place] [address] Scheduled Orders Name Type Priority Associated Diagnoses Orde r Schedule Sedimentation rate Lab Routine GCA (giant cell arteritis) Expected: 11/21/2022 (Approximate), Expires: 05/23/2023 documented as of this encounter Goals Goal Patient Goal Type Associated Problems Recent Progress Patient-Stated? Author DH Self-Management Patient Facing Action Plan No Danica Taylor, [facility] Note: Judson Nagel Jorge Funk Is [...] arteritis documented in this encounter Care Teams Career Development Facilitator Relationship Specialty Start Date End Date Yesy Nagy APRN [address] [place] [address] PCP - General Geriatric Medicine 08/02/22 documented as of this encounter
--- OUTSIDE RECORDS SUMMARY | 2024-09-25 09:14 | XMS_ITS | Encounter Summary ---
Author Organization [facility] [place] [address] Care Team Providers Care Aqua Ammonia Operator Name Role Phone Yesy Nagy APRN Primary Care Provider Encounter Details Date Type Department Care Team (Latest Contact Info) Description 02/26/2023 4:00 PM EDT TH Visit (TeleHealth) [place] [phone] Ananya Payan, [facility] [place] [address] GCA (giant cell arteritis); Immunosuppressed status; Medication [...] lipid profile, ESR, CRP- will send to [facility] -Continue Actemra weekly -Continue prednisone taper: [...] Dr. Joana Payan DO Rheumatology Fellow Pager: [phone] * Junior Bernard MD - 02/26/2023 4:00 PM EDT The patient's history was reviewed with Dr. Payan. History of present illness and diagnosis discussed. Chief complaint and review of systems reviewed. I agree with the summary, findings, diagnostic and therapeutic plans. Junior Bernard MD [employer] [place], [address] documented in this encounter Plan of Treatment Upcoming Encounters Date Type Department Care Team (Late st Contact Info) Description 09/25/2024 3:15 PM EDT Office Visit Rheumatology at [facility] [place] [address] Mika uQiroga MD [facility] [place] [address] Obdulia Coleman MD [facility] [place] [address] documented as of this encounter Goals Goal Patient Goal Type Associated Problems Recent Progress Patient-Stated? Author DH Self-Management Patient Facing Action Plan No Danica Taylor, [facility] Note: Judson Nagel Jorge Funk Is hoping to decrease his prednisone dosage and keep pain levels at a minimum. He is hoping that Actemra will be able to keep him walking since before prednisone he had a hard time standing up and walking around. documented as of this encounter Results * Lipid Panel (Reflex Direct LDL) (05/31/2023 10:18 AM EDT) [facility] Signature Cholesterol, Total 239 mg/dL [facility] Comment: Lower Risk: <200 mg/dL Average Risk: 200-239 mg/dL Higher Risk: >tp=487 mg/dL Triglyceride 191 mg/dL [facility] Comment: Average Risk/Lower Risk: <150 mg/dL Borderline High Risk: 150-199 mg/dL High Risk: 200-499 mg/dL Very High Risk: >lo=302 mg/dL HDL Cholesterol 51 mg/dL [facility] Comment: Males: ?? Higher Risk: <40 mg/dL Females: ?? Higher Risk: <50 mg/dL LDL Cholesterol 150 mg/dL [facility] Comment: Lowest Risk: <100 mg/dL Lower Risk: 100-129 mg/dL Borderline High Risk: 130-159 mg/dL High Risk: 160-189 mg/dL Very High Risk: >ug=115 mg/dL Cholesterol/HDL Ratio 4.7 ratio [facility] Lipid Interpretation See Note [facility] Comment: Lipid management should be guided by a patient? s ASCVD risk, goals and preferences. ACC/AHA Guidelines recommend high intensity statin if clinical ASCVD or LDL greater than or equal to 190 mg/dL. http://[email or web address] [email or web address]/GFC-ZLZ-Qzasahoml Adults aged 40-75 with LDL 70-189 mg/dL should have their 10 year ASCVD risk estimated with the ACC/AHA ASCVD risk care information associate http://tools.acc.org/BCFJD-Uxpy-Noawhqbfp/ Statin should be discussed if risk greater [...] Lab Junior Bernard MD CHEMISTRY ORDERABLE S [facility] [place] [address] documented in this encounter Visit Diagnoses Diagnosis GCA (giant cell arteritis) Giant cell arteritis Immunosuppressed status Unspecified disorder of immune mechanism Medication monitoring encounter Encounter for therapeutic drug monitoring Hyperlipidemia, unspecified hyperlipidemia type documented in this encounter Care Teams Aqua Ammonia Operator Relationship Specialty Start Date End Date Yesy Nagy APRN [address] [place] [address] PCP - General Geriatric Medicine 08/02/22 documented as of this encounter
--- OUTSIDE RECORDS SUMMARY | 2024-09-25 09:14 | XMS_ITS | Encounter Summary ---
Author Organization [facility] [place] [address] Care Team Providers Care Regional Administrative Assistant Name Role Phone Yesy Nagy APRN Primary Care Provider Encounter Details Date Type Department Care Team (Late st Contact Info) Description 01/22/2023 Telephone [place] [phone] Ananya Payan DO [facility] [place] [address] Social History Tobacco Use Types Packs/Day Years [...] 8mg prednisone daily - has appointment with [facility] neurology tomorrow. - Will recheck CRP ESR - If still elevated will need to discussed steroid sparing medication option. Previously offered actemra, but pt decline. Could also consider MTX. documented in this encounter Plan of Treatment Upcoming Encounters Date Type Department Care Team (Late st Contact Info) Description 09/25/2024 3:15 PM EDT Office [place] [address] Mika Quiroga MD [facility] [place] [address] Obdulia Coleman MD [facility] [place] [address] documented as of this encounter Goals Goal Patient Goal Type Associated Problems Recent Progress Patient-Stated? Author DH Self-Management Patient Facing Action Plan No Danica Taylor, [facility] Note: Judson Robe Patel Jr. Is hoping to decrease his prednisone dosage and keep pain levels at a minimum. He is hoping that Actemra will be able to keep him walking since before prednisone he had a hard time standing up and walking around. documented as of this encounter Visit Diagnoses Not on filedocumented in this encounter Care Teams Regional Administrative Assistant Relationship Specialty Start Date End Date Yesy Nagy APRN [address] [place] [address] PCP - General Geriatric Medicine 08/02/22 documented as of this encounter
--- OUTSIDE RECORDS SUMMARY | 2024-09-25 09:14 | XMS_ITS | Encounter Summary ---
Author Organization [facility] Address [facility] [place] [address] Care Team Providers Care Mat Gauger Name Role Phone Yesy Nagy APRN Primary Care Provider Encounter Details Date Type Department Care Team (Late st Contact Info) Description 12/18/2022 [place] [phone] Emma Zuñiga LPN Social History [...] 3:15 PM EDT [place] [phone] Mika Quiroga MD [facility] [address] Obdulia Coleman MD [facility] [place] [address] documented as of this encounter Goals Goal Patient Goal Type Associated Problems Recent Progress Patient-Stated? Author DH Self-Management Patient Facing Action Plan No Danica Taylor, [facility] Note: Judson Nagel Jorge Cisse. Is hoping to decrease his prednisone dosage and keep pain levels at a minimum. He is hoping that Actemra will be able to keep him walking since before prednisone he had a hard time standing up and walking around. documented as of this encounter Visit Diagnoses Not on filedocumented in this encounter Care Teams Mat Gauger Relationship Specialty Start Date End Date Yesy Nagy APRN [address] [place] [address] PCP - General Geriatric Medicine 08/02/22 documented as of this encounter
--- OUTSIDE RECORDS SUMMARY | 2024-09-25 09:14 | XMS_ITS | Encounter Summary ---
Author Organization [facility] Address [facility] [place] [address] Care Team Providers Care Car Repair Supervisor Name Role Phone Yesy Nagy APRN Primary Care Provider [phone] Encounter Details Date Type Department Care Team (Late st Contact Info) Description 12/15/2022 Orders Only Rheumatology at [place] [phone] Ananya Payan DO [facility] [place] [address] GCA (giant cell arteritis) Social History Tobacco [...] 3:15 PM EDT Office [place] [address] Mika Quiroga MD [facility] [place] [address] Obdulia Coleman MD [facility] [place] [address] documented as of this encounter Goals Goal [...] arteritis documented in this encounter Care Teams Car Repair Supervisor Relationship Specialty Start Date End Date Yesy Nagy APRN [address] [place] [address] PCP - General Geriatric Medicine 08/02/22 documented as of this encounter
--- OUTSIDE RECORDS SUMMARY | 2024-09-25 09:15 | XMS_ITS | Encounter Summary ---
Author Organization [facility] [place] [address] Care Team Providers Care Buttermilk Drier Operator Name Role Phone Yesy Nagy APRN Primary Care Provider Encounter Details Date Type Department Care Team (Late st Contact Info) Description 08/30/2022 Refill [place] [phone] Ananya Payan DO [facility] [place] [address] Social History Tobacco Use Types Packs/Day Years [...] 3:15 PM EDT Office [place] [phone] Mika Quiroga MD [facility] [place] [address] Obdulia Coleman MD [facility] [place] [address] documented as of this encounter Visit Diagnoses Not on filedocumented in this encounter Care Teams Buttermilk Drier Operator Relationship Specialty Start Date End Date Yesy Nagy APRN [address] [place] [address] PCP - General Geriatric Medicine 08/02/22 documented as of this encounter
--- OUTSIDE RECORDS SUMMARY | 2024-09-25 09:15 | XMS_ITS | Encounter Summary ---
Author Organization [facility] Address [facility] [place] [address] Care Team Providers Care Candle Pourer Name Role Phone Yesy Nagy APRN Primary Care Provider Encounter Details Date Type Department Care Team (Late st Contact Info) Description 08/24/2022 Telephone [place] [phone] Thony Dee MD [facility] [place] [address] Social History Tobacco Use Types Packs/Day Years [...] tomorrow. Thony Dee MD Rheumatology fellow Pager: [phone] documented in this encounter Plan of Treatment Upcoming Encounters Date Type Department Care Team (Late st Contact Info) Description 09/25/2024 3:15 PM EDT Office Visit [place] [address] Mika Quiroga MD [facility] [place] [address] Obdulia Coleman MD [facility] [place] [address] documented as of this encounter Visit Diagnoses Not on filedocumented in this encounter Care Teams Candle Pourer Relationship Specialty Start Date End Date Yesy Nagy APRN [address] [place] [address] PCP - General Geriatric Medicine 08/02/22 documented as of this encounter
--- OUTSIDE RECORDS SUMMARY | 2024-09-25 09:15 | XMS_ITS | Encounter Summary ---
Author Organization [facility] [place] [address] Care Team Providers Care [place] Customs And Border Officer Name Role Phone Yesy Nagy APRN Primary Care Provider [phone] Encounter Details Date Type Department Care Team (Late st Contact Info) Description 08/24/2022 Telephone [place] [address] Landy Monson RN Social History [...] 3:15 PM EDT Office [place] [phone] Mika Quiroga MD [facility] [place] [address] Obdulia Coleman MD [facility] DR [place]AT[place] [address] documented as of this encounter Visit Diagnoses Not on filedocumented in this encounter Care Teams [place] Customs And Border Officer Relationship Specialty Start Date End Date Yesy Nagy [place] [place] [address] PCP - General Geriatric Medicine 08/02/22 documented as of this encounter
--- OUTSIDE RECORDS SUMMARY | 2024-09-25 09:15 | XMS_ITS | Encounter Summary ---
Author Organization [facility] Address [facility] [place] [address] Care Team Providers Care Lead Enterprise Architect Name Role Phone Yesy Nagy APRN Primary Care Provider [phone] Reason for Visit * Consultation (Routine) - Closed Specialty Diagnoses / Procedures Referred By Socrates pleitez Referred To Contact Rheumatology Diagnoses GCA (giant cell arteritis) Yesy Nagy APRN [address] [place] [address] [facility] [address] [place] [phone] Referral ID Status Reason Start Date Expiration Date V isits Requested Visits Authorized [id number] Closed Consult, Test & Treat 08/02/2022 08/02/2023 6 6 Encounter Details Date Type Department Care Team (Late st Contact Info) Description 08/08/2022 3:45 PM EDT Office [place] [address] Linda Shaikh, [facility] [place] [address] Ananya Payan, [facility] [place] [address] PMR (polymyalgia rheumatica); Osteoporosis, unspecified osteoporosis type, [...] of PMR History of Present Illness: Judson Nagel Jorge Funk is a 71 y.o. male with PMHx [...] a ride to be seen here at [facility] prefers to follow-up with his PCP ROS: [...] nerves II through XII intact, Romberg negative, [id number] normal [id number] normal resting tremor noted. Gait slightly unsteady [...] obtaining transportation to come to appointments at [facility]. Would prefer to follow with his [...] PM EDT Office [place] [address] Mika Quiroga MD [facility] [place] [address] Obdulia Coleman MD [facility] [place] [address] documented as of this encounter Procedures Procedure [...] EDT PMR (polymyalgia rheumatica) COMPREHENSIVE METABOLIC PANEL Routine 08/08/2022 5:39 PM EDT PMR (polymyalgia rheumatica) documented in this encounter Results * (ABNORMAL) Differential, Automated (08/08/2022 5:39 PM EDT) Neutrophil % 90.4 % [facility] Neutrophil Absolute 10.07(H) 1.70 - 6.10 x10(3)/mc L [facility] Lymph % 5.3 % [facility] Lymphocytes Abs 0.6(L) 0.9 - 3.2 x10(3)/mc L [facility] Monocyte % 3.1 % [facility] Monocyte Abs 0.4 0.3 - 0.9 x10(3)/mc L [facility] Eos % 0.0 % [facility] Eosinophils Abs 0.0 0.0 - 0.4 x10(3)/[facility] Basophil % 0.2 % [facility] Baso Absolute 0.0 0.0 - 0.1 x10(3)/[facility] Immature Gran % 1.00 % [facility] Comment: Immature granulocytes(IG's)percentage and absolute count will include metamyelocytes, myelocytes, and promyelocytes. Blood smears from CBCs yielding IG's will be scanned manually for concordance. If this scan disagrees with the automated IG or if promyelocytes are noted, a manual differential will be performed. Immature Gran Absolute 0.11(H) 0.00 - 0.04 x10(3)/[facility] Blood 08/08/2022 5:39 PM EDT 08/08/2022 5:51 PM EDT Narrative Resulting Agency Comment Spec In Lab Ananya Payan DO HEMATOLOGY ORDERABLE S [facility] [place] [address] * (ABNORMAL) Hemogram (08/08/2022 5:39 PM EDT) White Blood Cell 11.1(H) 4.0 - 9.5 x10(3)/[facility] Red Blood Cell 3.92(L) 4.58 - 5.54 x10(6)/[facility] Hemoglobin 13.1(L) 13.7 - 16.5 g/dL [facility] Hematocrit 36.0(L) 40.5 - 48.5 % [facility] Mean Cell Volume 91.8 82.9 - 93.[address] [facility] Mean Cell Hemoglobin 33.4(H) 27.5 - 32.[address] [facility] Mean Cell Hemoglobin Concentration 36.4(H) 32.0 - 35.7 g/dL [facility] Platelet 273 145 - 357 x10(3)/mc L [facility] RDW Standard Deviation 47.6(H) 36.0 - 45.[address] [facility] RDW coefficient of variation 14.1(H) 11.4 - 13.8 % [facility] Mean Platelet Volume 8.7 7.6 - 12.[address] [facility] NRBC% auto 0.0 % [facility] NRBC Absolute 0.000 0.000 - 0.000 x10(3)/mc L [facility] Blood 08/08/2022 5:39 PM EDT 08/08/2022 5:51 PM EDT Narrative Resulting Agency Comment Spec In Lab Ananya Payan DO HEMATOLOGY ORDERABLE S Performing Organization Address [facility] Co de Phone Number [facility] [place] [address] * (ABNORMAL) CRP, acute inflammation (08/08/2022 5:39 PM EDT) C-Reactive Protein 20.2(H) <=4.9 mg/L [facility] Blood 08/08/2022 5:39 PM EDT 08/08/2022 5:51 PM EDT Narrative Resulting Agency Comment Spec In Lab Linda Shaikh DO CHEMISTRY ORDERABL ES Performing Organization Address [facility] Co de Phone Number [facility] [place] [address] * (ABNORMAL) Sedimentation rate (08/08/2022 5:39 PM EDT) Sedimentation Rate Automated 60(H) 3 - 46 mm/hr [facility] Comment: Effective November 05, 2019 new capillary photometric technology has resulted in a change in reference ranges. It is recommended that each ESR result be reviewed with its own age appropriate reference range. Blood 08/08/2022 5:39 PM EDT 08/08/2022 5:51 PM EDT Narrative Resulting Agency Comment Spec In Lab Linda Shaikh HEMATOLOGY ORDERAB LES [facility] [place] [address] * (ABNORMAL) Comprehensive metabolic panel (non-fasting) (08/08/2022 5:39 PM EDT) Glucose 179 65 - 199 mg/dL [facility] Comment:Diabetes: >=200 mg/d L plus symptoms Blood Urea Nitrogen 18 10 - 20 mg/dL [facility] Creatinine 0.95 0.80 - 1.50 mg/dL [facility] Sodium 130(L) 135 - 145 mmol/L [facility] Potassium 4.1 3.5 - 5.0 mmol/L [facility] Comment: Please note: ??Patients with WBC >100,000 may have falsely elevated Potassium levels. ??For accurate Potassium quantification in these patients send serum separator tube (gold top) for subsequent determinations. ??Contact the Clinical Chemistry Laboratory if there are any questions. Chloride 94(L) 98 - 107 mmol/L [facility] Carbon Dioxide 24 22 - 31 mmol/L [facility] Anion Gap 12 5 - 15 mmol/L [facility] Calcium 8.9 8.5 - 10.5 mg/dL [facility] Protein, Total 7.1 6.1 - 8.0 g/dL [facility] Albumin 4.3 3.2 - 5.2 g/dL [facility] Aspartate Aminotransferase 18 0 - 39 unit/L [facility] Alanine Aminotransferase 23 0 - 55 unit/L [facility] Alkaline Phosphatase 71 40 - 130 unit/L [facility] Bilirubin, Total 0.5 0.2 - 1.3 mg/dL [facility] Est Glomerular Filtration Rate 85 >=60 mL/min/1. 73 m?? [facility] Comment: This patient's estimated GFR [...] DO CHEMISTRY ORDERABL ES Performing Organization Address [facility]/ZIP Co de Phone Number [facility] [place] [address] * (ABNORMAL) Protein Electrophoresis, serum (08/08/2022 5:39 PM EDT) Total Prot Electrophoresis 6.7 6.1 - 8.0 g/dL [facility] Albumin Electrophoresis 4.11 3.20 - 5.20 g/dL [facility] Alpha 1 Globulin 0.19 0.10 - 0.30 g/dL [facility] Alpha 2 Globulin 1.04(H) 0.40 - 0.90 g/dL [facility] Beta Globulin 0.71 0.50 - 1.00 g/dL [facility] Gamma Globulin 0.64 0.50 - 1.30 g/dL [facility] M1 Band None Detected None Detected [facility] Blood 08/08/2022 5:39 PM EDT 08/08/2022 5:51 PM EDT Narrative Resulting Agency Comment Spec In Lab Linda Shaikh DO CHEMISTRY ORDERABL ES Performing Organization Address City/[facility]/ZIP Co de Phone Number [facility] [place] [place] [address] * Vitamin B12 (08/08/2022 5:39 PM EDT) Vitamin B12 458 232 - 1,245 pg/mL [facility] Blood 08/08/2022 5:39 PM EDT 08/08/2022 5:51 PM EDT Narrative Resulting Agency Comment Spec In Lab Linda Shaikh DO CHEMISTRY ORDERABL ES [facility] [place] [address] documented in this encounter Visit Diagnoses Diagnosis PMR (polymyalgia rheumatica) Polymyalgia rheumatica Osteoporosis, unspecified osteoporosis type, unspecified pathological fracture presence documented in this encounter Care Teams Lead Enterprise Architect Relationship Specialty Start Date End Date Yesy Nagy APRN [address] [place] [address] PCP - General Geriatric Medicine 08/02/22 documented as of this encounter
--- OUTSIDE RECORDS SUMMARY | 2024-09-25 09:15 | XMS_ITS | Encounter Summary ---
Author Organization [facility] [place] [address] Care Team Providers Care Neonatal Intensive Care Unit Nurse Name Role Phone Yesy Nagy APRN Primary Care Provider [phone] Reason for Referral * Consultation (Routine) - [...] to neurology for further evaluation. Ananya Payan, [facility] [place] [address] [facility] [address] [place] [address] Referral ID Status Reason Start Date Expiration Date V isits Requested Visits Authorized [id number] Closed Consult, Test & Treat 08/25/2022 08/25/2023 1 1 Encounter Details Date Type Department Care Team (Late st Contact Info) Description 08/25/2022 Telephone [place] [phone] Ananya Payan, [facility] [place] [address] Social History Tobacco Use Types Packs/Day Years [...] -Order MRI MRA of brain- sent to [facility] -Continue prednisone 60 mg daily until 08/30/2022 then decrease to 50 mg daily -Continue daily aspirin -Continue calcium vitamin D supplement -Start Bactrim double strength 3 times a week Plan was discussed with Dr. Shaikh \ documented in this encounter Plan of Treatment Upcoming Encounters Date Type Department Care Team (Late st Contact Info) Description 09/25/2024 3:15 PM EDT Office [place] [address] Mika Quiroga MD [facility] [place] [address] Obdulia Coleman MD [facility] [address] Scheduled Orders Name Type Priority Associated Diagnoses [...] systems documented in this encounter Care Teams Neonatal Intensive Care Unit Nurse Relationship Specialty Start Date End Date Yesy Nagy APRN 4 [facility] [place] [address] PCP - General Geriatric Medicine 08/02/22 documented as of this encounter
--- OUTSIDE RECORDS SUMMARY | 2024-09-25 09:15 | XMS_ITS | Encounter Summary ---
Author Organization [facility] Address [facility] [place] [address] Care Team Providers Care Food Production Machine Operator Name Role Phone Unknown Primary Care Provider Unavailabl e Encounter Details Date Type Department Care Team (Late st Contact Info) Description 07/14/2022 [place]phone [place] [phone] Ananya Payan [facility] [place] [address] Social History Tobacco Use Types Packs/Day Years [...] Dr. Stephen Payan DO Rheumatology Fellow Pager: [phone] documented in this encounter Plan of Treatment Upcoming Encounters Date Type Department Care Team (Late st Contact Info) Description 09/25/2024 3:15 PM EDT [place] [address] Mika Quiroga MD [facility] [place] [address] Obdulia Coleman MD [facility] [place] [address] documented as of this encounter Visit Diagnoses Not on filedocumented in this encounter Care Teams Food Production Machine Operator Relationship Specialty Start Date End Date Unknown None PCP - General 05/31/21 08/01/22 documented as of this encounter
--- OUTSIDE RECORDS SUMMARY | 2024-09-25 09:15 | XMS_ITS | Encounter Summary ---
Author Organization [facility] Address [facility] [place] [address] Care Team Providers Care Flight Purser Name Role Phone Yesy Nagy APRN Primary Care Provider [phone] Encounter Details Date Type Department Care Team (Late st Contact Info) Description 09/14/2022 10:15 AM EDT Office Visit [place] [phone] Ananya Payan, [facility] [place] [address] GCA (giant cell arteritis); Immunosuppressed status Social [...] prednisone -Patient reports he had labs on [facility] this week ROS (positives in [...] pedal edema Labs/Studies: Reviewed. -Requested labs from [facility]. Assessment/Plan: 71-year-old male with past [...] [facility] I did recommend an MRI/MRA of his brain due to history of disequilibrium to evaluate for a posterior circulation stroke and to evaluate temporal arteries on CTA. Patient declined due to cost. Currently is on 50 mg of prednisone. We will obtain lab work from [facility] to ensure inflammatory markers are low and plan to continue taper prednisone. -Patient has not started tocilizumab yet, discussed risk and benefits of the medication. Pharmacistwill show patient how to use it today, patient is agreeable to starting medication. -Recommended obtaining DEXA to evaluate for bone density. Order has been placed at last visit Plan -Requested inflammatory markers from [facility] -prednisone taper -40 mg X [...] Dr. Neel Payan DO Rheumatology Fellow Pager: [phone] * Linda Shaikh DO - 09/14/2022 10:15 AM EDT ATTENDING ADDENDUM The patient's history was reviewed, and I interviewed and examined the patient with I agree with her summary, findings, and plan. documented in this encounter Plan of Treatment Upcoming Encounters Date Type Department Care Team (Late st Contact Info) Description 09/25/2024 3:15 PM EDT Office Visit [facility] [place] [address] Mika Quiroga MD [facility] [address] [place] [address] Obdulia Coleman MD [facility] [place] [address] documented as of this encounter Goals Goal [...] mechanism documented in this encounter Care Teams Flight Purser Relationship Specialty Start Date End Date Yesy Nagy APRN [address] [place] [address] PCP - General Geriatric Medicine 08/02/22 documented as of this encounter
--- OUTSIDE RECORDS SUMMARY | 2024-09-25 09:15 | XMS_ITS | Encounter Summary ---
Author Organization [facility] [place] [address] Care Team Providers Care Director Telehealth Name Role Phone Yesy Nagy COMMUNICATION CONSULTANT Primary Care Provider Encounter Details Date Type [...] 3:15 PM EDT Office Visit Rheumatology at [place] [phone] Mika Quiroga MD [facility] [place] [address] Obdulia Coleman MD [facility] [place] [address] documented as of this encounter Goals Goal Patient Goal Type Associated Problems Recent Progress Patient-Stated? Author DH Self-Management Patient Facing Action Plan No Danica Taylor, [facility] Note: Judson Patel Jr. Is hoping to decrease his prednisone dosage and keep pain levels at a minimum. He is hoping that Actemra will be able to keep him walking since before prednisone he had a hard time standing up and walking around. documented as of this encounter Visit Diagnoses Not on filedocumented in this encounter Care Teams Director Telehealth Relationship Specialty Start Date End Date Yesy Nagy APRN [address] [place] [address] PCP - General Geriatric Medicine 08/02/22 documented as of this encounter
--- OUTSIDE RECORDS SUMMARY | 2024-09-25 09:15 | XMS_ITS | Encounter Summary ---
Author Organization [facility] [place] [address] Care Team Providers Care Front End Technician Name Role Phone Yesy Nagy MALACHI Primary Care Provider [phone] Reason for Visit * Reason Comments Medication Management Patient Education Encounter Details Date Type Department Care Team (Late st Contact Info) Description 09/14/2022 Specialty [place] [address] Danica Taylor [facility] Social History Tobacco Use Types Packs/Day Years [...] Requirements: no Medication Reconciliation Discrepancies (compared to [facility] med list) -none Medication List: Current [...] OIL ORAL) Take by mouth. ??? Ascorbic Axjt-Grmmwbhbc-Brl (Emergen-C) 1,000 mg Powder Effervescent in Packet [...] specialty services: Yes Patient accepted offer to relocation counselor: select all, adherence/missed doses, cost of [...] to doctor discussed, reminder to refill or hop picker medication discussed, self-monitoring discussed, start medication [...] Assessment: Does patient have a primary care transitions manager: No Does patient have an emergency contact on file: Yes Does patient need referral to social work msw: No Does patient need referral to advocacy [...] goals: Patient's specific desired goal: Goals ??? DH Self-Management Judson Patel Jr. 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 Danica Taylor RPH 09/14/22 11:11 AM documented in this encounter Plan of Treatment Upcoming Encounters Date Type Department Care Team (Late st Contact Info) Description 09/25/2024 3:15 PM EDT [place] [address] Mika Quiroga MD [facility] [place] [address] Obdulia Coleman MD [facility] [place] [address] documented as of this encounter Goals Goal Patient Goal Type Associated Problems Recent Progress Patient-Stated? Author Self-Management Patient Facing Action Plan No Danica Taylor [facility] Note: Judson Robe Patel Jr. Is hoping to decrease his prednisone dosage and keep pain levels at a minimum. He is hoping that Actemra will be able to keep him walking since before prednisone he had a hard time standing up and walking around. documented as of this encounter Visit Diagnoses Not on filedocumented in this encounter Care Teams Front End Technician Relationship Specialty Start Date End Date Yesy Nagy APRN [address] [place] [address] PCP - General Geriatric Medicine 08/02/22 documented as of this encounter
--- OUTSIDE RECORDS SUMMARY | 2024-09-25 09:15 | XMS_ITS | Encounter Summary ---
Author Organization [facility] [place] [address] Care Team Providers Care Shoe Patternmaker Name Role Phone Yesy Nagy MALACHI Primary Care Provider Encounter Details Date Type Department Care Team (Late st Contact Info) Description 10/03/2022 Tele[place] [address] Dayna Paez RN Social History [...] this for him. Danica Taylor, [facility] sent to Dayna Paez RN Cc: [...] 3:15 PM EDT Office [place] [address] Mika Quiroga MD [facility] [place] [place] [address] Obdulia Coleman MD [facility] [place] [address] documented as of this encounter Goals Goal [...] on filedocumented in this encounter Care Teams Shoe Patternmaker Relationship Specialty Start Date End Date Yesy Nagy APRN [address] [place] [address] PCP - General Geriatric Medicine 08/02/22 documented as of this encounter
--- OUTSIDE RECORDS SUMMARY | 2024-09-25 09:15 | XMS_ITS | Encounter Summary ---
Author Organization [facility] Address [facility] [place] [address] Care Team Providers Care Product Support Specialist Name Role Phone Yesy Nagy APRN Primary Care Provider Encounter Details Date Type Department Care Team (Late st Contact Info) Description 08/09/2022 Orders [place] [address] Ananya Payan [facility] [place] [address] GCA (giant cell arteritis); Immunosuppressed status Social [...] 3:15 PM EDT Office [place] [phone] Mika Quiroga MD [facility] [place] [address] Obdulia Coleman MD [facility] [address] documented as of this encounter Results * HIV Screen, 4th Generation ([facility]/CGP/APD/NLH) (01/23/2023 9:59 AM EST) HIV Ab/Ag Screen Negative Negative [facility] Comment: This 4th Generation HIV test [...] HIV Comment Low Risk of HIV Infection [facility] Blood 01/23/2023 9:59 AM EST 01/23/2023 10:08 AM EST Narrative Resulting Agency Comment Spec In Lab Linda Shaikh DO CHEMISTRY ORDERABL ES Performing Organization Address [facility] Phone Number [facility] [place] [address] * Hepatitis B Surface Antigen (01/23/2023 9:59 AM EST) Hepatitis B Surface Antigen Negative Negative [facility] Blood 01/23/2023 9:59 AM EST 01/23/2023 10:08 AM EST Narrative Resulting Agency Comment Spec In Lab Linda Shaikh DO CHEMISTRY ORDERABL ES Performing Organization Address [facility] Number [facility] [place] [address] * Hepatitis B Surface Antibody (01/23/2023 9:59 AM EST) Hepatitis B Surface Antibody, Quantitative <3.5 IU/L [facility] Comment: HepB Surface Ab Quant: Unvaccinated: < 8.5 IU/L Vaccinated: >= 11.5 IU/L Hepatitis B Surface Antibody Negative [facility] Comment: Expected Results: Vaccinated: Positive Unvaccinated: Negative Patient is presumed to be not vaccinated or immune to HBV infection. Blood 01/23/2023 9:59 AM EST 01/23/2023 10:08 AM EST Narrative Resulting Agency Comment Spec In Lab Linda Shaikh DO CHEMISTRY ORDERABL ES [facility] [place] [address] * Hepatitis B Core Antibody, Total (01/23/2023 9:59 AM EST) Hepatitis B Core Antibody Negative Negative [facility] Blood 01/23/2023 9:59 AM EST 01/23/2023 10:08 AM EST Narrative Resulting Agency Comment Spec In Lab Linda D Neel DO CHEMISTRY ORDERABL ES Performing Organization Address [facility] Co de Phone Number [facility] [place] [address] * Hepatitis C Antibody (01/23/2023 9:59 AM EST) Hepatitis C Antibody Negative Negative [facility] Blood 01/23/2023 9:59 AM EST 01/23/2023 10:08 AM EST Narrative Resulting Agency Comment Spec In Lab Linda Shaikh DO CHEMISTRY ORDERABL ES Performing Organization Address City/[facility] Co de Phone Number [facility] [place] [address] documented in this encounter Visit Diagnoses Diagnosis GCA (giant cell arteritis) Giant cell arteritis Immunosuppressed status Unspecified disorder of immune mechanism documented in this encounter Care Teams Product Support Specialist Relationship Specialty Start Date End Date Yesy Nagy APRN [address] [place] [address] PCP - General Geriatric Medicine 08/02/22 documented as of this encounter
--- OUTSIDE RECORDS SUMMARY | 2024-09-25 09:15 | XMS_ITS | Encounter Summary ---
Author [facility] [place] [address] Care Team Providers Care Ribbon Hand Name Role Phone Yesy Nagy APRN Primary Care Provider [phone] Reason for Visit * Reason Onset Date Comments Medication Problem 09/19/2022 Encounter Details Date Type Department Care Team (Late st Contact Info) Description 09/19/2022 Telephone [place] [phone] Dayna Paez RN Medication Problem Social History [...] (Today, ??1:37 PM) Okay thanks ?? Danica Taylor, [facility] sent to Dayna Paez RN; Ananya Payan [...] RTC to Judson and he will contact [facility] in [place] and donate the medication next time he is down this way. Will keep refrigerated. documented in this encounter Plan of Treatment Upcoming Encounters Date Type Department Care Team (Late st Contact Info) Description 09/25/2024 3:15 PM EDT Office [place] [address] Mika Quiroga MD [facility] [place] [address] Obdulia Coleman MD [facility] [place] [address] documented as of this encounter Goals Goal Patient Goal Type Associated Problems Recent Progress Patient-Stated? Author DH Self-Management Patient Facing Action Plan No Danica Taylor, [facility] Note: Judson Robe Paetl Jr. Is hoping to decrease his prednisone dosage and keep pain levels at a minimum. He is hoping that Actemra will be able to keep him walking since before prednisone he had a hard time standing up and walking around. documented as of this encounter Visit Diagnoses Not on filedocumented in this encounter Care Teams Ribbon Hand Relationship Specialty Start Date End Date Yesy Nagy APRN [address] [place] [address] PCP - General Geriatric Medicine 08/02/22 documented as of this encounter
--- OUTSIDE RECORDS SUMMARY | 2024-09-25 09:15 | XMS_ITS | Encounter Summary ---
Author Organization [facility] Address [facility] [place] [address] Care Team Providers Care Beater Room Supervisor Name Role Phone Yesy Nagy APRN Primary Care Provider Encounter Details Date Type Department Care Team (Late st Contact Info) Description 08/09/2022 Orders [place] [phone] Ananya Payan [facility] [address] Social History Tobacco Use Types Packs/Day Years [...] 3:15 PM EDT Office [place] [phone] Mika Quiroga MD [facility] [place] [address] Obdulia Coleman MD [facility] [place] [address] documented as of this encounter Visit Diagnoses Not on filedocumented in this encounter Care Teams Beater Room Supervisor Relationship Specialty Start Date End Date Yesy Nagy APRN [address] [place] [address] PCP - General Geriatric Medicine 08/02/22 documented as of this encounter
--- OUTSIDE RECORDS SUMMARY | 2024-09-25 09:15 | XMS_ITS | Encounter Summary ---
[place] [address] Care Team Providers Care Digital Marketing Executive Name Role Phone Ozzie Davis Primary Care Provider [phone] Encounter Details Date Type Department Care Team (Late st Contact Info) Description 06/14/2016 External [place] [phone] Pedro Barreto MD [facility] [place] [address] Social History Tobacco Use Types Packs/Day Years [...] 3:15 PM EDT [place] [phone] Mika Quiroga MD [facility] [place] [address] Obdulia Coleman MD [facility] [place] [address] documented as of this encounter Procedures Procedure Name Priority Date/Time Associated Diagnosis Comments EMG SCAN Routine 06/09/2016 documented in this encounter Results * Scan Doc: EMG (06/09/2016) Pedro Barreto MD MEDIA MGR SCAN EXT O RDR/RSLT documented in this encounter Visit Diagnoses Not on filedocumented in this encounter Care Teams Digital Marketing Executive Relationship Specialty Start Date End Date Ozzie Davsi PA [address] [place] [address] PCP - General General Internal Medicine 04/12/1605/30 documented as of this encounter
--- OUTSIDE RECORDS SUMMARY | 2024-09-25 09:15 | XMS_ITS | Encounter Summary ---
Author Organization [facility] [place] [address] Care Team Providers Care Research Engineer Name Role Phone Yesy Nagy APRN Primary Care Provider Encounter Details Date Type Department Care Team (Late st Contact Info) Description 09/01/2022 Telephone [place] [phone] Ananya Payan, [facility] [place] [address] Social History Tobacco Use Types Packs/Day Years [...] to go to the ED by the contracts manager fellow, he called [phone], but by the [...] appointment. Ananya Payan DO Rheumatology Fellow Pager: [phone] documented in this encounter Plan of Treatment Upcoming Encounters Date Type Department Care Team (Late st Contact Info) Description 09/25/2024 3:15 PM EDT Office [place] [address] Mika Quiroga MD [facility] [place] [address] Obdulia Coleman MD [facility] [place] [address] documented as of this encounter Visit Diagnoses Not on filedocumented in this encounter Care Teams Research Engineer Relationship Specialty Start Date End Date Yesy Nagy APRN [address] [place] [address] PCP - General Geriatric Medicine 08/02/22 documented as of this encounter
--- OUTSIDE RECORDS SUMMARY | 2024-09-25 09:15 | XMS_ITS | Encounter Summary ---
Author Organization [facility] Address [facility] [place] [address] Care Team Providers Care Evp Head Of [employer] Experience Strategy Name Role Phone Yakov Yesy MALACHI Primary Care Provider [phone] Reason for Visit * Reason Comments Medication Management Encounter Details Date Type Department Care Team (Late st Contact Info) Description 10/04/2022 Specialty [place] [phone] Danica Taylor [facility] Social History Tobacco Use Types Packs/Day [...] this encounter Progress Notes * Danica Taylor [facility] - 10/04/2022 7:35 AM EST Clinical Management Plan: Transfer of Care/Discharge Specialty Services Specialty Pharmacy Consultation; Danica Taylor [facility] Comprehensive Medication Management (CMM) Judson Patel Jr. [address] [facility] [address] Telephone Information: Work Phone Not on file. [...] and that [facility] isproviding recommendations (summary located at top of note) for provider review and follow up. Danica Taylor RPH 10/04/22 7:35 AM documented in this encounter Plan of Treatment Upcoming Encounters Date Type Department Care Team (Late st Contact Info) Description 09/25/2024 3:15 PM EDT Office [place] [address] Mika Quiroga MD [facility] [place] [address] Obdulia Coleman MD [facility] [place] [address] documented as of this encounter Goals Goal Patient Goal Type Associated Problems Recent Progress Patient-Stated? Author Self-Management Patient Facing Action Plan No Danica Taylor [facility] Note: Judson Nagel Jorge Funk Is hoping to decrease his prednisone dosage and keep pain levels at a minimum. He is hoping that Actemra will be able to keep him walking since before prednisone he had a hard time standing up and walking around. documented as of this encounter Visit Diagnoses Not on filedocumented in this encounter Care Teams Evp Head [employer] Experience Strategy Relationship Specialty Start Date End Date Yesy Nagy APRN [address] [place] [address] PCP - General Geriatric Medicine 08/02/22 documented as of this encounter
--- OUTSIDE RECORDS SUMMARY | 2024-09-25 09:15 | XMS_ITS | Encounter Summary ---
Author Organization [facility] Address [facility] [place] [address] Care Team Providers Care Social Services Aide Name Role Phone Yesy Nagy APRN Primary Care Provider [phone] Encounter Details Date Type Department Care Team (Late st Contact Info) Description 08/31/2022 Telephone [place] [address] Landy Monson RN Social History [...] call back from his Provider Dr Schuyler [facility] When returned call patient asked to speak to MD please. Message sent to Provider to review. documented in this encounter Plan of Treatment Upcoming Encounters Date Type Department Care Team (Late st Contact Info) Description 09/25/2024 3:15 PM EDT Office [place] [phone] Mika Quiroga MD [facility] [place] [address] Obdulia Coleman MD [facility] [address] documented as of this encounter Visit Diagnoses Not on filedocumented in this encounter Care Teams Social Services Aide Relationship Specialty Start Date End Date Yesy Nagy APRN [address] [place] [address] PCP - General Geriatric Medicine 08/02/22 documented as of this encounter
--- OUTSIDE RECORDS SUMMARY | 2024-09-25 09:15 | XMS_ITS | Encounter Summary ---
Author Organization [facility] [place] [address] Care Team Providers Care White Lead Filterer Name Role Phone Yesy Nagy APRN Primary Care Provider [phone] Reason for Visit * Reason Comments Prior Authorization Actemra Actpen 162 m g/0.9 ml SOAJ Encounter Details Date Type Department Care Team (Late st Contact Info) Description 08/30/2022 Specialty [place] [phone] Toro Kraft, [facility] Social History Tobacco Use Types Packs/Day [...] Patel Jr. Patient : 1950 Patient Address: [facility] [address] [place] [address] (home) Medication Name: ACTEMRA ACTPEN 162 MG/0.9 ML SUBCUTANEOUS PEN INJECTOR Medication ID: [id number] Subscriber Insurance: [employer] Medicare Subscriber Insurance Comment: Fax: Physician: JOSE F CAMERON Physician Comment: Sent Via: [facility] Carlson: [id number] Ref/Case/PA#: Medication Strength Frequency Requested: Actemra Actpen 162 mg/0.9 ml SOAJ Inject 162 mg (1 Pen) Subcutaneously Every 7 Days Qty/Day Supply: 03/23 New Start: New to Therapy Diagnosis & ICD-10 Code: GCA M31.6 Patient Notified: Yes Submission Notes: - New Medication Toro Kraft CPHT 08/30/22 12:35 PM * Toro Kraft CPHT - 08/30/2022 12:34 PM EDT [facility], Prior Authorization Approval Medication Name: ACTEMRA ACTPEN 162 MG/0.9 ML SUBCUTANEOUS PEN INJECTOR Medication ID: [id number] Approval Dates: 11/26/2021 to 11/25/2023 Insurance requirements/notes: - Patient May Fill With Pharmacy Other Notes: None Case/Reference #: [id number] Approval notification Received via: [facility] Copay: $4.00 Copay assistance: None Copay Notes: None Insurance mandated Pharmacy: [facility] Fillable at [facility]: Yes Pharmacy staff will be reaching out to the patient to inform them of [facility]. If applicable, a pharmacist will speak with the patient to offer our specialty pharmacy services and to arrange delivery of their medication. Toro Kraft CPHT 08/30/22 2:18 PM documented in this encounter Plan of Treatment Upcoming Encounters Date Type Department Care Team (Late st Contact Info) Description 09/25/2024 3:15 PM EDT [place] [phone] Mika Quiroga MD [facility] [place] [address] Obdulia Coleman MD [facility] [place] [address] documented as of this encounter Goals Goal Patient Goal Type Associated Problems Recent Progress Patient-Stated? Author DH Self-Management Patient Facing Action Plan No Danica Taylor, [facility] Note: Judson Nagel Jorge Funk Is hoping to decrease his prednisone dosage and keep pain levels at a minimum. He is hoping that Actemra will be able to keep him walking since before prednisone he had a hard time standing up and walking around. documented as of this encounter Visit Diagnoses Not on filedocumented in this encounter Care Teams White Lead Filterer Relationship Specialty Start Date End Date Yesy Nagy APRN [address] [place] [address] PCP - General Geriatric Medicine 08/02/22 documented as of this encounter
--- OUTSIDE RECORDS SUMMARY | 2024-09-25 09:15 | XMS_ITS | Encounter Summary ---
Author Organization [facility] Address [facility] [place] [address] Care Team Providers Care Tape Transferrer Name Role Phone Yesy Nagy APRN Primary Care Provider [phone] Encounter Details Date Type Department Care Team (Late st Contact Info) Description 08/27/2022 Telephone [place] [phone] Pravin Sethi MD [facility] [place] [address] Social History Tobacco Use Types Packs/Day Years [...] plan. Pravin Sethi MD Rheumatology Fellow Pager: [phone] documented in this encounter Plan of Treatment Upcoming Encounters Date Type Department Care Team (Late st Contact Info) Description 09/25/2024 3:15 PM EDT Office [place] [address] Mika Quiroga MD [facility] [place] [place] [address] Obdulia Coleman MD [facility] [place] [address] documented as of this encounter Visit Diagnoses Not on filedocumented in this encounter Care Teams Tape Transferrer Relationship Specialty Start Date End Date Yesy Nagy APRN [address] [place] [address] PCP - General Geriatric Medicine 08/02/22 documented as of this encounter
--- OUTSIDE RECORDS SUMMARY | 2024-09-25 09:15 | XMS_ITS | Encounter Summary ---
Author Organization [facility] [place] [address] Care Team Providers Care Bounty Hunter Name Role Phone Yesy Nagy APRN Primary Care Provider Encounter Details Date Type Department Care Team (Late st Contact Info) Description 09/20/2022 [place] [phone] Ananya Payan DO [facility] [place] [address] Social History Tobacco Use Types Packs/Day Years [...] 3:15 PM EDT [place] [address] Mika Quiroga MD [facility] DR [place] [address] Obdulia Coleman MD [facility] [place] [address] documented as of this encounter Goals Goal Patient Goal Type Associated Problems Recent Progress Patient-Stated? Author DH Self-Management Patient Facing Action Plan No Danica Taylor, [facility] Note: Judson Robe Patel Jr. Is hoping to decrease his prednisone dosage and keep pain levels at a minimum. He is hoping that Actemra will be able to keep him walking since before prednisone he had a hard time standing up and walking around. documented as of this encounter Visit Diagnoses Not on filedocumented in this encounter Care Teams Bounty Hunter Relationship Specialty Start Date End Date Yesy Nagy APRN [address] [place] [address] PCP - General Geriatric Medicine 08/02/22 documented as of this encounter
--- OUTSIDE RECORDS SUMMARY | 2024-09-25 09:15 | XMS_ITS | Encounter Summary ---
Author Organization [facility] Address [facility] [place] [address] Care Team Providers Care Director Corporate Communications Name Role Phone Yesy Nagy APRN Primary Care Provider [phone] Encounter Details Date Type Department Care Team (Latest Contact Info) Description 10/24/2022 3:45 PM EST TH Visit (TeleHealth) [place] [address] Ananya Payan DO 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 Labs were done at [facility], they were reviewed, ESR 33, CRP0.14. [...] Dr. Pamella Payan DO Rheumatology Fellow Pager: [phone] * Vianney Can MD - 10/24/2022 3:45 [...] 3:15 PM EDT Office Visit Rheumatology at [place] [phone] Mika Quiroga MD [facility] [place] [place] [address] Obdulia Coleman MD [facility] [place] [address] documented as of this encounter Goals Goal [...] of gait PMR (polymyalgia rheumatica) Polymyalgia rheumatica buttermaker continuous churn current use of systemic steroids Encounter for long-term (current) use of steroids documented in this encounter Care Teams Director Corporate Communications Relationship Specialty Start Date End Date Yesy Nagy APRN [address] [facility] [place] [address] PCP - General Geriatric Medicine 08/02/22 documented as of this encounter
--- OUTSIDE RECORDS SUMMARY | 2024-09-25 09:15 | XMS_ITS | Encounter Summary ---
Author Organization [facility] Address [facility] [place] [address] Care Team Providers Care Financial Investment Adviser Name Role Phone Yesy Nagy APRN Primary Care Provider Encounter Details Date Type Department Care Team (Late st Contact Info) Description 09/13/2022 Telephone [place] [address] Jennifer Hebert MA Social History [...] EDT Called patient for pre-charting, no answer. TR BERTA documented in this encounter Plan of Treatment Upcoming Encounters Date Type Department Care Team (Late st Contact Info) Description 09/25/2024 3:15 PM EDT Office [place] [address] Mika Quiroga MD [facility] [place] [address] Obdulia Coleman MD [facility] [place] [address] documented as of this encounter Visit Diagnoses Not on filedocumented in this encounter Care Teams Financial Investment Adviser Relationship Specialty Start Date End Date Yesy Nagy APRN [address] [place] [address] PCP - General Geriatric Medicine 08/02/22 documented as of this encounter
--- OUTSIDE RECORDS SUMMARY | 2024-09-25 09:15 | XMS_ITS | Encounter Summary ---
Author Organization [facility] [place] [address] Care Team Providers Care Crop Roller Name Role Phone Yesy Nagy APRN Primary Care Provider Encounter Details Date Type Department Care Team (Late st Contact Info) Description 11/01/2022 Telephone [place] [address] Landy Monson RN Social History [...] - 11/01/2022 2:03 PM EST Dusty, from [facility] Radiology calls today asking if the order [...] 3:15 PM EDT Office [place] [address] [facility] [place] [place] [address] [facility] [place] [address] documented as of this encounter Goals Goal [...] on filedocumented in this encounter Care Teams Crop Roller Relationship Specialty Start Date End Date Yesy Nagy APRN [address] [place] [address] PCP - General Geriatric Medicine 08/02/22 documented as of this encounter
--- OUTSIDE RECORDS SUMMARY | 2024-09-25 09:15 | XMS_ITS | Encounter Summary ---
Author Organization [facility] [place] [address] Care Team Providers Care Plate Hanger Name Role Phone Yesy Nagy APRN Primary Care Provider [phone]- [phone] Encounter Details Date Type Department Care Team (Late st Contact Info) Description 08/09/2022 Telephone [place] [phone] Ananya Payan DO [facility] [place] [address] Social History Tobacco Use Types Packs/Day Years [...] in 1 week (will send labs to [facility]) IF inflammatory markers are normalized, will plan to start slowly tapering the prednisone. Plan for follow up in 1 month -Sep 14. 10:15 ( pt is going to check that he can get a ride that day, will call pt back tomorrow to confirm) . Ananya Payan DO Rheumatology Fellow Pager: [phone] documented in this encounter Plan of Treatment Upcoming Encounters Date Type Department Care Team (Late st Contact Info) Description 09/25/2024 3:15 PM EDT Office [place] [address] Mika Quiroga MD [facility] [place] [address] Obdulia Coleman MD [facility] [place] [address] Scheduled Orders Name Type Priority Associated Diagnoses Orde r Schedule Sedimentation rate Lab Routine GCA (giant cell arteritis) Expected: 08/16/2022 (Approximate), Expires: 02/15/2023 documented as of this encounter Visit Diagnoses Diagnosis GCA (giant cell arteritis) Giant cell arteritis documented in this encounter Care Teams Plate Hanger Relationship Specialty Start Date End Date Yesy Nagy APRN [address] [place] [address] PCP - General Geriatric Medicine 08/02/22 documented as of this encounter
--- OUTSIDE RECORDS SUMMARY | 2024-09-25 09:15 | XMS_ITS | Encounter Summary ---
Author Organization Counts Include [address] [address] Care Team Providers Care Oyster Unloader Name Role Phone Ozzie Davis Primary Care Provider [phone] Reason for Referral * Consultation (Routine) - Closed Specialty Diagnoses / Procedures Referred By Contac t Referred To Contact Rheumatology Diagnoses Numbness Beau Cassidy MD [facility] [place] [address] [facility] [address] [place] [address] Referral ID Status Reason Start Date Expiration Date V isits Requested Visits Authorized [id number] Closed Consult, Test & Treat 06/14/2016 06/14/2017 1 1 Encounter Details Date Type Department Care Team (Late st Contact Info) Description 06/14/2016 [place] [phone] Beau Cassidy MD [facility] [place] [address] Numbness Social History Tobacco Use Types Packs/Day [...] 3:15 PM EDT Office [place] [address] Mika Quiroga MD [facility] [place] [address] Obdulia Coleman MD [facility] [place] [address] Scheduled Referrals Name Type Priority Associated Diagnoses Order Schedule Referral to Rheumatology Outpatient Referral Routine Numbness Ordered: 06/14/2016 documented as of this encounter Visit Diagnoses Diagnosis Numbness Disturbance of skin sensation documented in this encounter Care Teams Oyster Unloader Relationship Specialty Start Date End Date Ozzie Davis PA [address] [place] [address] PCP - General General Internal Medicine 04/12/1605/30 documented as of this encounter
--- OUTSIDE RECORDS SUMMARY | 2024-09-25 09:15 | XMS_ITS | Encounter Summary ---
Author Organization [facility] Address [facility] [place] [address] Care Team Providers Care Senior Budget Analyst Name Role Phone Yesy Nagy APRN Primary Care Provider Encounter Details Date Type Department Care Team (Late st Contact Info) Description 10/18/2022 Telephone [place] [phone] Ananya Payan DO [facility] [place] [address] Social History Tobacco Use Types Packs/Day Years [...] pain. Ananya Payan DO Rheumatology Fellow Pager: [phone] documented in this encounter Plan of Treatment Upcoming Encounters Date Type Department Care Team (Late st Contact Info) Description 09/25/2024 3:15 PM EDT Office [place] [address] Mika Quiroga MD [facility] [place] [address] Obdulia Coleman MD [facility] [place] [address] documented as of this encounter Goals Goal [...] filedocumented in this encounter Care Teams Senior Budget Analyst Relationship Specialty Start Date End Date Yesy Nagy APRN [address] [place] [address] PCP - General Geriatric Medicine 08/02/22 documented as of this encounter
--- OUTSIDE RECORDS SUMMARY | 2024-09-25 09:15 | XMS_ITS | Encounter Summary ---
Author Organization [facility] [place] [address] Care Team Providers Care Girls Tennis Coach Name Role Phone YakovYesy MALACHI Primary Care Provider [phone] Reason for Visit * Reason Onset Date Comments Other 10/18/2022 Encounter Details Date Type Department Care Team (Late st Contact Info) Description 10/18/2022 Telephone [place] [phone] Dayna Paez RN Other Social History Tobacco [...] Payan. Yesy Yakov can be reached at [phone] Ananya Payan DO sent to Rafus, Mauna L, RN Caller: Unspecified (2 days ago, 11:28 AM) Spoke with patient - on Sunday can you request the lab results from [facility] closed will try to talk with her Sunday /Sunday. Ananya documented in this encounter Plan of Treatment Upcoming Encounters Date Type Department Care Team (Late st Contact Info) Description 09/25/2024 3:15 PM EDT Office [place] [address] Mika Quiroga MD [facility] [place] [address] Obdulia Coleman MD [facility] [place] [address] documented as of this encounter Goals Goal Patient Goal Type Associated Problems Recent Progress Patient-Stated? Author DH Self-Management Patient Facing Action Plan No Danica Taylor, [facility] Note: Judson Robe Patel Jr. Is hoping to decrease his prednisone dosage and keep pain levels at a minimum. He is hoping that Actemra will be able to keep him walking since before prednisone he had a hard time standing up and walking around. documented as of this encounter Visit Diagnoses Not on filedocumented in this encounter Care Teams Girls Tennis Coach Relationship Specialty Start Date End Date Yesy Nagy APRN [address] [place] [address] PCP - General Geriatric Medicine 08/02/22 documented as of this encounter
--- OUTSIDE RECORDS SUMMARY | 2024-09-25 09:15 | XMS_ITS | Encounter Summary ---
Author Organization [facility] Address [facility] [place] [address] Care Team Providers Care Numerical Control Router Operator Name Role Phone Red Peoples MD Primary Care Provider Lindsay lopez Encounter Details Date Type Department Care Team (Latest Contact Info) Description 04/11/2016 - 04/11/2016 11:59 PM EDT Hospital Encounter Radiology Library at [facility] [place] [phone] Pedro Barreto MD [facility] [place] [address] Pain Discharge Disposition: Home Social History Tobacco [...] 3:15 PM EDT Office Visit Rheumatology at [facility] [place] [address] Mika Quiroga MD [facility] [place] [address] Obdulia Coleman MD [facility] [place] [address] documented as of this encounter Procedures Procedure Name Priority Date/Time Associated Diagnosis Comments FILM LIBRARY STORAGE ONLY MR HEAD Routine 04/11/2016 12:00 AM EDT Pain documented in this encounter Results * Film Library- Storage only MR Head (04/11/2016 12:00 AM EDT) Narrative BRYAN LORA - 05/30/2016 8:58 AM EDT This exam is for storage only and is auto-finalizing. Pedro Barreto MD IM FILM LIBRARY ORD ERABLES Performing Organization Address City/State/[facility] Co de Phone Number [place], [place] documented in this encounter Visit Diagnoses Diagnosis Pain Generalized pain documented in this encounter Care Teams Numerical Control Router Operator Relationship Specialty Start Date End Date Red Peoples MD [place], [place] PCP - General 10/18/10 04/11/16 documented as of this encounter
--- OUTSIDE RECORDS SUMMARY | 2024-09-25 09:15 | XMS_ITS | Encounter Summary ---
Author Organization [facility] Address [facility] [place] [address] Care Team Providers Care Print Finisher Name Role Phone Ozzie Davis Primary Care Provider [phone]- [phone] Encounter Details Date Type Department Care Team (Late st Contact Info) Description 06/14/2016 Telephone [place] [phone] Stephen Murray MD [facility] [place] [address] Social History Tobacco Use Types Packs/Day Years [...] 3:15 PM EDT Office [place] [address] Mika Quiroga MD [facility] [place] [address] Obdulia Coleman MD [facility] [place] [address] documented as of this encounter Visit Diagnoses Not on filedocumented in this encounter Care Teams Print Finisher Relationship Specialty Start Date End Date Ozzie Davis PA [address] [place] [address] PCP - General General Internal Medicine 04/12/1605/30 documented as of this encounter
--- OUTSIDE RECORDS SUMMARY | 2024-09-25 09:15 | XMS_ITS | Encounter Summary ---
Author Organization [facility] Address [facility] [place] [address] Care Team Providers Care Case Making Machine Operator Name Role Phone Ozzie Davis Primary Care Provider [phone] Reason for Visit * Reason Comments Referral * Consultation (Routine) - Closed Specialty Diagnoses / Procedures Referred By Socrates pleitez Referred To Contact Rheumatology Diagnoses Numbness Beau Cassidy MD [facility] [place] [place] [address] [facility] Rheumatology [address] [place] [address] Referral ID Status Reason Start Date Expiration Date V isits Requested Visits Authorized [id number] Closed Consult, Test & Treat 06/14/2016 06/14/2017 1 1 Encounter Details Date Type Department Care Team (Late st Contact Info) Description 06/21/2016 1:00 PM EDT Office [place] [address] Vianney Can MD [facility] 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 [...] - 06/21/2016 2:40 PM EDTAddended by: BELINDA BOLDNE on: 06/21/2016 02:40 PM Modules accepted: Orders documented in this encounter Plan of Treatment Upcoming Encounters Date Type Department Care Team (Late st Contact Info) Description 09/25/2024 3:15 PM EDT Office [place] [phone] Mika Quiroga MD [facility] [place] [address] Obdulia Coleman MD [facility] [place] [address] documented as of this encounter Procedures Procedure Name Priority Date/Time Associated Diagnosis Comments HEMOGLOBIN A1C Routine 06/21/2016 2:49 PM EDT Peripheral polyneuropathy IFG (impaired fasting glucose) documented in this encounter Results * (ABNORMAL) Hemoglobin A1c (06/21/2016 2:49 PM EDT) Hemoglobin A1c 6.0(H) 4.3 - 5.6 % [facility] Comment: Reference Range: 4.3 - [...] Diabetes Care 2013; 36: Suppl. 1, S67-74 Estimated Average Glucose 126 mg/dL [facility] Comment: eAG equivalents for HbA1c percentages: HbA1c(%) ?eAG(mg/dL) 6.0 ?126 6.5 ?140 7.0 ?154 7.5 ?169 8.0 ?183 8.5 ?197 9.0 ?212 9.5 ?226 10.0 ? 240 Limitations: The eAG calculation has not been validated on women, individuals below 18 years old and above 70 years old, and individuals with hemoglobinopathies. Additional resources are available on the ADA website: http://[employer].com/DHMCadacalc Alejandro BRAGA, Dayana J, Jelly R, et al. ??Translating the A1C assay into estimated average glucose values. ??Diabetes Care 2008:31(8):4549-7271. Blood specimen (specimen) 06/21/2016 2:49 PM EDT 06/21/2016 3:02 PM EDT Narrative Resulting Agency Comment Spec In Lab Vianney [place] [address] documented in this encounter Visit Diagnoses Diagnosis Peripheral polyneuropathy Unspecified hereditary and idiopathic peripheral neuropathy IFG (impaired fasting glucose) Impaired fasting glucose documented in this encounter Care Teams Case Making Machine Operator Relationship Specialty Start Date End Date Ozzie Davis PA [address] [place] [address] PCP - General General Internal Medicine 04/12/1605/30 documented as of this encounter
--- OUTSIDE RECORDS SUMMARY | 2024-09-25 09:15 | XMS_ITS | Encounter Summary ---
[place] [address] Care Team Providers Care Reproduction Technician Name Role Phone Yesy Nagy MALACHI Primary Care Provider [phone]- [phone] Reason for Visit * Reason Comments Specialty Pharmacy Review Tocilizumab (A ctemra) 162 mg/0.9 mL Pen Injector Encounter Details Date Type Department Care Team (Late st Contact Info) Description 08/30/2022 Specialty [place] [address] Yuliya Booker, [facility] Social History Tobacco Use Types Packs/Day Years [...] RPH - 08/30/2022 12:06 PM EDT The [facility] has completed a benefits investigation for Judson Patel Jr. to review their eligibility to fill at [facility]. Per patient's medication list they are prescribed Actemra and the medication is able to be filled at the [facility]. Judson Patel Jr. elects to fill with [facility] under current insurance plan's mandate. documented in this encounter Plan of Treatment Upcoming Encounters Date Type Department Care Team (Late st Contact Info) Description 09/25/2024 3:15 PM EDT Office [place] [address] Mika Quiroga MD [facility] [place] [address] Obdulia Coleman MD [facility] [place] [address] documented as of this encounter Goals Goal Patient Goal Type Associated Problems Recent Progress Patient-Stated? Author DH Self-Management Patient Facing Action Plan No Danica Taylor, [facility] Note: Judson Robe Patel Jr. Is hoping to decrease his prednisone dosage and keep pain levels at a minimum. He is hoping that Actemra will be able to keep him walking since before prednisone he had a hard time standing up and walking around. documented as of this encounter Visit Diagnoses Not on filedocumented in this encounter Care Teams Reproduction Technician Relationship Specialty Start Date End Date Yesy Nagy APRN [address] [place] [address] PCP - General Geriatric Medicine 08/02/22 documented as of this encounter
--- OUTSIDE RECORDS SUMMARY | 2024-09-25 09:15 | XMS_ITS | Encounter Summary ---
[place] [address] Care Team Providers Care Sumo Wrestler Name Role Phone Yesy Nagy APRN Primary Care Provider [phone]- [phone] Reason for Referral * Consultation (Routine) - Closed Specialty Diagnoses / Procedures Referred By Contaugustin t Referred To Contact Rheumatology Diagnoses GCA (giant cell arteritis) Ysey Nagy APRN [address] [place] [address] [facility] Rheumatology [address] [place] [phone] Referral ID Status Reason Start Date Expiration Date V isits Requested Visits Authorized [id number] Closed Consult, Test & Treat 08/02/2022 08/02/2023 6 6 Encounter Details Date Type Department Care Team (Latest Contact Info) Description 08/02/2022 Transcribe Orders eDH Incoming Referrals [phone] Yesy Nagy APRN [address] [place], [place] [address] GCA (giant cell arteritis) Social History Tobacco [...] 3:15 PM EDT [place] [address] Mika Quiroga MD [facility] [address] Obdulia Coleman MD [facility] [place] [address] Scheduled Referrals Name Type Priority Associated Diagnoses Order Schedule Referral to Rheumatology Outpatient Referral Routine GCA (giant cell arteritis) Ordered: 08/02/2022 documented as of this encounter Visit Diagnoses Diagnosis GCA (giant cell arteritis) Giant cell arteritis documented in this encounter Care Teams Sumo Wrestler Relationship Specialty Start Date End Date Yesy Nagy APRN [address] [facility] [place] [address] PCP - General Geriatric Medicine 08/02/22 documented as of this encounter
--- OUTSIDE RECORDS SUMMARY | 2024-09-25 09:15 | XMS_ITS | Encounter Summary ---
Author Organization [facility] Address [facility] [place] [address] Care Team Providers Care Steam Shovel Operator Name Role Phone Ozzie Davis Primary Care Provider [phone] Reason for Visit * Reason Onset Date Comments Other 06/14/2016 Encounter Details Date Type Department Care Team (Late st Contact Info) Description 06/14/2016 [place] [address] Pedro Barreto MD [facility] [place] [address] Other Social History Tobacco Use Types Packs/Day [...] and comment. * Telephone Encounter - Desiree oCwan RN - 06/14/2016 2:55 PM EDT Call [...] 3:15 PM EDT Office [place] [address] Mika Quiroga MD [facility] [place] [place] [address] Obdulia Coleman MD [facility] [place] [address] documented as of this encounter Visit Diagnoses Not on filedocumented in this encounter Care Teams Steam Shovel Operator Relationship Specialty Start Date End Date Ozzie Davis PA [address] [place] [address] PCP - General General Internal Medicine 04/12/1605/30 documented as of this encounter
--- OUTSIDE RECORDS SUMMARY | 2024-09-25 09:15 | XMS_ITS | Encounter Summary ---
Author Organization [facility] [place] [address] Care Team Providers Care Lumber Mover Name Role Phone Ozzie Davis Primary Care Provider [phone]- [phone] Reason for Visit * Consultation (Routine) - Closed Specialty Diagnoses / Procedures Referred By Contaugustin t Referred To Contact Neurology Diagnoses shooting pain down the bilat arms and down to LLE, loss of balance and dizzy spells. Ozzie Davis PA [address] [place] [address] [facility] [address] [place] [address] Referral ID Status Reason Start Date Expiration Date V isits Requested Visits Authorized [id number] Closed Consult, Test & Treat Connection Center 04/13/2016 04/13/2017 1 1 Encounter Details Date Type Department Care Team (Late st Contact Info) Description 06/09/2016 10:30 AM EDT Procedure [place] [phone] Sharlene Moore MD [facility] [place] [address] Neuropathy Social History Tobacco Use Types Packs/Day [...] documented in this encounter Progress Notes * Beau Aguilar MD - 06/09/2016 10:30 AM EDT [...] TSH nl ?elevated ITA He lives in [place], [place]. 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 No recent travel Water from [place] (last tested 2006) Smoked 1 ppd for [...] B12, Syphilis Ag, Thiamine, B6, B9, BEBO, [place], ITA - If symptoms persist consider MS work-up (total spine MRI, Brain MRI w/contrast and LP) - f/u in 6 months BEAU AGUILAR MD PGY 4 Neurology Pager #[phone] I have seen the patient and reviewed [...] 3:15 PM EDT Office [place] [address] Mika Quiroga MD [facility] [place] [address] Obdulia Coleman MD [facility] [place] [address] documented as of this encounter Procedures Procedure Name Priority Date/Time Associated Diagnosis Comments LYME IGG & IGM ANTIBODY Routine 06/09/2016 12:38 PM EDT Neuropathy EXTRACTABLE NUCLEAR ANTIGEN (BEBO) AB Routine 06/09/2016 12:38 PM EDT Neuropathy VITAMIN B1, WHOLE BLOOD Routine 06/09/2016 12:38 PM EDT Neuropathy SYPHILIS ANTIBODY SCREEN WITH REFLEX Routine 06/09/2016 12:38 PM EDT Neuropathy HIV SCREEN, 4TH GENERATION ([facility]/CGP/APD/NLH) Routine 06/09/2016 12:38 PM EDT Neuropathy ANGIOTENSIN [...] (06/09/2016 12:38 PM EDT) ITA Neg Neg [facility] Blood specimen (specimen) 06/09/2016 12:38 PM EDT 06/09/2016 1:47 PM EDT Narrative Resulting Agency Comment Spec In Lab Sharlene Moore MD LAB SEND OUT ORDERAB LES [facility] [place] [address] * (ABNORMAL) Extractable Nuclear Antigen (BEBO) Ab (06/09/2016 12:38 PM EDT) BEBO Ab Test ?Result ?Flag ??Unit ??RefValue Ab to Extractable Nuclear Ag Eval,S ??SS-A/Ro Ab, IgG, S ?<0.2 ?U -- REFERENCE VALUE -- <1.0 (Negative) ??SS-B/La Ab, IgG, S ?<0.2 ?U -- REFERENCE VALUE -- <1.0 (Negative) ??Sm Ab, IgG, S ? <0.2 ?U -- REFERENCE VALUE -- <1.0 (Negative) ??SUBPOENA SERVER Ab, IgG, S ?<0.2 ?U -- REFERENCE VALUE -- <1.0 (Negative) ??Scl 70 Ab, IgG, S ? 7.6 ?H ?U -- REFERENCE VALUE -- <1.0 (Negative) Interpretation: Positive (>=1.0) ??Megan 1 Ab, IgG, S ? <0.2 ?U -- REFERENCE VALUE -- <1.0 (Negative) Test Performed by: [facility] - [address] [address] Cable Respooler: Stephen Caldera II, M.D., Ph.D. (A) [facility] Blood specimen (specimen) 06/09/2016 12:38 PM EDT 06/09/2016 2:47 PM EDT Narrative Resulting Agency Comment Spec In Lab Sharlene Moore MD LAB SEND OUT ORDERAB LES Performing Organization Address [facility] Co de Phone Number [facility] [place] [address] * HIV Screen, 4th Generation (06/09/2016 12:38 PM EDT) [facility] HIV Ab/Ag Screen Negative Negative [facility] Comment: This [...] Moore MD CHEMISTRY ORDERABLES Performing Organization Address [facility] Co de Phone Number [facility] [place] [address] * Angiotensin Converting Enzyme (06/09/2016 12:38 PM EDT) Pathologist [facility] [place] ( 11 8 - 53 unit/L [facility] Comment: Test Performed by: [facility] - [address] [address] Cable Respooler: Stephen Caldera II, M.D., Ph.D. Blood specimen (specimen) 06/09/2016 12:38 PM EDT 06/09/2016 1:30 PM EDT Narrative Resulting Agency Comment Spec In Lab Sharlene Moore MD LAB SEND OUT ORDERAB LES Performing Organization Address City/[facility]/ZIP Co de Phone Number [facility] [place] [address] * Folate, serum (06/09/2016 12:38 PM EDT) [facility] Folate 18.4 4.6 - 34.8 ng/mL [facility] Blood specimen (specimen) 06/09/2016 12:38 PM EDT 06/09/2016 12:46 PM EDT Narrative Resulting Agency Comment Spec In Lab Sharlene Moore MD CHEMISTRY ORDERABLES Performing Organization Address [facility] Co de Phone Number [facility] [place] [address] * (ABNORMAL) Vitamin B6 (06/09/2016 12:38 PM EDT) [facility] Vitamin B6 (MARCH) 56(H) 5 - 50 mcg/L [facility] Comment: In this sample, the elevated pyridoxal 5-phosphate is likely related to dietary supplementation. Test Performed by: [facility] [place] [address] Cable Respooler: Mirtha Hall, Ph.D. Blood specimen (specimen) 06/09/2016 12:38 PM EDT 06/09/2016 1:06 PM EDT Narrative Resulting Agency Comment Spec In Lab Sharlene Moore MD LAB SEND OUT ORDERAB LES Performing Organization Address [facility] Co de Phone Number [facility] [place] [address] * Vitamin B1, whole blood (06/09/2016 12:38 PM EDT) [facility] Vit B1 Lvl Wb (MARCH) 146 70 - 180 nmol/L [facility] Comment: Test Performed by: [employer] [place] [address] Cable Respooler: Mirtha Hall, Ph.D. Blood specimen (specimen) 06/09/2016 12:38 PM EDT 06/09/2016 1:09 PM EDT Narrative Resulting Agency Comment Spec In Lab Sharlene Moore MD LAB SEND OUT ORDERAB LES Performing Organization Address [facility] Co de Phone Number [facility] [place] [address] * Syphilis Antibody, IgG (06/09/2016 12:38 PM EDT) Syphilis IgG Neg Neg [facility] Blood specimen (specimen) 06/09/2016 12:38 PM EDT 06/10/2016 10:27 AM EDT Narrative Resulting Agency Comment Spec In Lab Sharlene Moore MD CHEMISTRY ORDERABLES Performing Organization Address [facility] Co de Phone Number [facility] [place] [address] * Lyme IgG & IgM Antibody (06/09/2016 12:38 PM EDT) Lyme Antibody Neg Neg [facility] Blood specimen (specimen) 06/09/2016 12:38 PM EDT 06/10/2016 10:27 AM EDT Narrative Resulting Agency Comment Spec In Lab Sharlene Moore MD IMMUNOLOGY ORDERABLE S Performing Organization Address [facility] Co de Phone Number [facility] [place] [address] * Protein Electrophoresis, serum (06/09/2016 12:38 PM EDT) Total Prot Electrophoresis 7.0 6.1 - 8.0 gm/dL [facility] Albumin Electrophoresis 4.42 3.60 - 6.00 gm/dL [facility] Alpha 1 Globulin 0.19 0.10 - 0.30 gm/dL [facility] Alpha 2 Globulin 0.85 0.40 - 0.90 gm/dL [facility] Beta Globulin 0.71 0.50 - 1.00 gm/dL [facility] Gamma Globulin 0.83 0.50 - 1.30 gm/dL [facility] M1 Band None Detected [facility] Blood specimen (specimen) 06/09/2016 12:38 PM EDT 06/09/2016 12:46 PM EDT Narrative Resulting Agency Comment Spec In Lab Sharlene Moore MD CHEMISTRY ORDERABLES [facility] [place] [address] documented in this encounter Visit Diagnoses Diagnosis Neuropathy Mononeuritis of unspecified site documented in this encounter Care Teams Lumber Mover Relationship Specialty Start Date End Date Ozzie Davis PA [address] [place] [address] PCP - General General Internal Medicine 04/12/1605/30 documented as of this encounter
--- OUTSIDE RECORDS SUMMARY | 2024-09-25 09:15 | XMS_ITS | Encounter Summary ---
Author Organization [facility] Address [facility] [place] [address] Care Team Providers Care Ostrich Farmer Name Role Phone Unknown Primary Care Provider Unavailabl e Encounter Details Date Type Department Care Team (Late st Contact Info) Description 07/17/2022 [place] [phone] Brittni Hamilton Social History Tobacco Use Types [...] 3:15 PM EDT [place] [phone] Mika Quiroga MD [facility] [address] Obdulia Coleman MD [facility] [place] [address] documented as of this encounter Visit Diagnoses Not on filedocumented in this encounter Care Teams Ostrich Farmer Relationship Specialty Start Date End Date Unknown None PCP - General 05/31/21 08/01/22 documented as of this encounter
[2024-09-25 09:28] LABS: Influenza A PCR Negative (Negative); Influenza B PCR Negative (Negative); RSV PCR Negative (Negative)
[2024-09-25 09:36] LABS: COVID-19 PCR Positive (Negative); Source Nasopharynx
[2024-09-25 09:38] LABS: Abs Immature Grans 0.06 10^3/uL (0.0-0.06); Absolute Eosinophil Count 0.04 10^3/uL (0.0-0.7); Absolute Lymphocyte Count 1.12 10^3/uL (1.2-3.4); Absolute Monocyte Count 0.99 10^3/uL (0.1-0.8); BE (Venous) 2 mmol/L (-2-3); Basophils % 0.1 %; Eosinophils % 0.3 %; HCO3 (Venous) 27 mmol/L (23-28); HCT 35.5 % (40.0-50.0); HGB 12.2 g/dL (13.5-17.5); Immature Grans % 0.4 %; Lymphocytes % 8.4 %; MCH 31.5 pg (27.0-33.0); MCHC 34.4 % (32.0-36.0); MCV 92 fL (80-95); MPV 9.6 fL (8.0-11.0); Monocytes % 7.4 %; Neutrophils % 83.4 %; O2 Sat (Venous) 67 %; Platelet Count 245 10^3/uL (130-400); RBC 3.87 10^6/uL (4.36-5.78); RDW 12.9 % (11.8-14.1); TCO2 (Venous) 25 mmol/L (24-29); WBC 13.37 10^3/uL (4.4-10.8); pCO2 (Venous) 46 mmHg (41-51); pH (Venous) 7.37 (7.31-7.41); pO2 (Venous) 35 mmHg
[2024-09-25 09:40] LABS: Lactate 2.3 mmol/L (0.6-1.4)
[2024-09-25 09:41] LABS: Absolute Basophil Count 0.01 10^3/uL (0.0-0.2); Absolute Neutrophil Count 11.15 10^3/uL (1.2-6.7)
[2024-09-25 10:00] LABS: ALT 20 U/L (16-63); AST 17 U/L (15-37); Albumin 3.2 g/dL (3.4-5.0); Alkaline Phosphatase 62 U/L (46-116); BUN 17 mg/dL (7-18); Bilirubin, Total 0.49 mg/dL (0.2-1.0); CREATININE 1.5 mg/dL (0.70-1.30); Calcium 8.7 mg/dL (8.5-10.1); Chloride 100 mmol/L (98-107); Estimated GFR 48.25 (mL/min/1.73m2); Glucose 221 mg/dL (74-106); Potassium 3.9 mmol/L (3.5-5.1); Sodium 138 mmol/L (136-145); Total Protein 6.7 g/dL (6.4-8.2)
--- NOTE | 2024-09-25 10:12 | DI.RAD_ITS ---
Exam(s) XR PORTABLE CHEST AP EXAM: XR PORTABLE CHEST AP CLINICAL HISTORY: fever,cough TECHNIQUE: 2D digital imaging was performed. COMPARISON: CR XR CHEST 2V PA LATERAL from 08/29/2024 FINDINGS: Overlying monitoring leads. Suboptimal penetration at the left lung base. LUNGS: Clear. No pleural abnormality seen. HEART: Normal size. AORTA: Normal diameter. BONES: Unremarkable for age. Soft tissues: Metallic densities again projecting in the neck. IMPRESSION: No acute findings. DATA REPOSITORY: RADIATION DOSE DELIVERED:
[2024-09-25 10:17] LABS: Procalcitonin < 0.1 ng/mL
[2024-09-25] MEDS: Dexamethasone 4 MG TAB 6 MG PO (11:11)
--- NOTE | 2024-09-25 12:23 | W.PM.HP.N ---
Date of service: 09/25/24 Time of Service: 12:23 Assessment and Plan Assessment and plan (1) Pneumonia due to COVID-19 virus: Start date: 09/25/24 Status: Acute Assessment and plan: This is a 73-year-old gentleman who had COVID pneumonia last year with was less severe with hypoxemia presenting now with fever and hypoxemia and more severe symptoms. He will be admitted for supportive care with remdesivir initiated and the dexamethasone to be continued IV. He will be at the increased dose because of his chronic use of prednisone. If he does well he can return home on oxygen but lives in a homeless long-term which may have limitations. Overall he is doing well and is not requiring IV antibiotics and eating and drinking well not requiring hydration. He is a full code. (2) Steroid-induced diabetes: Status: Chronic Assessment and plan: Glucometer measurements before meals and at bedtime while hospitalized with coverage as needed. Qualifiers: Encounter type: subsequent encounter Qualified Code(s): E09.9 - Drug or chemical induced diabetes mellitus without complications; T38.0X5D - Adverse effect of glucocorticoids and synthetic analogues, subsequent encounter (3) GCA (giant cell arteritis): Status: Chronic Assessment and plan: Monitor on dexamethasone with return to prednisone after dexamethasone complete. (4) Hyperlipidemia: Status: Chronic Assessment and plan: Continue outpatient therapy. Qualifiers: Hyperlipidemia type: elevated lipoprotein(a) Qualified Code(s): E78.41 - Elevated Lipoprotein(a) (5) GERD (gastroesophageal reflux disease): Assessment and plan: Continue outpatient therapy. Qualifiers: Esophagitis presence: without esophagitis Qualified Code(s): K21.9 - Gastro-esophageal reflux disease without esophagitis (6) Anemia in CKD (chronic kidney disease): Status: Chronic Assessment and plan: Monitor while hospitalized without IV hydration. Qualifiers: Chronic kidney disease stage: stage 3 (moderate) Chronic kidney disease stage 3 subtype: stage 3a (GFR 45-59) Qualified Code(s): N18.31 - Chronic kidney disease, stage 3a; D63.1 - Anemia in chronic kidney disease (7) Hypertension: Status: Chronic Assessment and plan: Continue outpatient therapy. Qualifiers: Hypertension type: primary hypertension Qualified Code(s): I10 - Essential (primary) hypertension History of Present Illness History of Present Illness Chief Complaint: Generalized weakness, cough with fever and hypoxemia Narrative: This is a 73-year-old male patient who presented to the ED via EMS with complaints of generalized weakness, cough with fever and was found to be hypoxic with generally not on oxygen therapy at home. He does have a history of being immunocompromised on methotrexate with giant cell arteritis and does take prednisone. He also has hypertension. He lives at a homeless long-term with others and the symptoms began last evening. He was tested in the ED and found to have COVID with coarse crackles over his lungs but no acute infiltrates on chest x-ray. The patient does have CKD with creatinine elevated and CTA was not performed with patient having reason for hypoxemia with his acute COVID infection. He will be placed on DVT prophylaxis. The patient was given remdesivir and started on dexamethasone orally which will be switched to IV with continued supportive care and hospitalization for recovery and monitoring. His procalcitonin was reassuring and his lactate was elevated as it has been in the past. He does have an elevated glucose with a history of steroid-induced diabetes but not on medical therapy. He will be covered while hospitalized with glucometer measurements and sliding scale insulin coverage. Patient patient is a full code. Review of Systems Narrative: 13 point review of systems otherwise unrevealing or stable. PFSH All Active Problems (Updated 09/25/24 @ 23:43 by Judson Meza) Anemia in CKD (chronic kidney disease) (Chronic) Pneumonia due to COVID-19 virus (Acute) Dizziness (Acute) Cataracts, both eyes (Acute) [place] 07/24/24 not visually significant Diverticulosis (Acute ~08/2023) Peripheral neuropathy (Chronic 05/07/18) EtOH related; [facility] [place] [place] Neuro 2017 & 2022 Hypertension (Chronic 05/07/18) Goal 135-145 (lower & he feels poor)--didn't tolerate Lisinopril Benign prostatic hyperplasia (Chronic 05/13/18) RX Flomax History of alcohol abuse (Chronic 05/07/18) Family history of prostate cancer in father (Chronic) Also PGF Hyperlipidemia (Chronic ~07/2021) Recommend statin 07/2021; Eladia Read obtained lipoprotein a, elevated--> cardiology recommends consider statin 01/2022 Elevated lipoprotein A level (Acute ~12/2021) Declines statin Abnormal gait (Acute ~06/2022) Peripheral neuropathy + vestibular ([facility] [place] [place] [facility] 01/2023) On prednisone therapy (Acute ~04/2022) GCA (giant cell arteritis) (Chronic ~11/2022) [facility] [place] [place] Endo--RX Actremra 01/2023; discontinued in favor of daily prednisone 7.5mg daily; switched to methotrexate 06/2024 Steroid-induced diabetes (Chronic ~09/2022) Immunosuppressed status (Acute) LT prednisone for GCA Onychomycosis (Acute) Nail dystrophy (Acute) Medical History Anemia (~08/2022) Lightheadedness PMR (polymyalgia rheumatica) (~04/2022) COVID-19 (~08/2023) Impaired fasting glucose (05/07/18) Monitor annual A1Cs; +fam hx DMT2 Candidal paronychia Elevated serum creatinine Left scapholunate ligament tear Fracture of distal end of left radius (10/26/22) Immunization refused (~02/2022) Tachycardia library monitor stable--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 Seborrheic dermatitis of scalp Edema of lower extremity (05/07/18) Occurred x1, RX Furosemide and never reoccurred even off Furosemide Anxiety (05/07/18) GERD (gastroesophageal reflux disease) (05/07/18) Hepatomegaly (05/07/18) Resolved off EtOH Surgical History Tonsillectomy Appendectomy Family History Father , 73yo from metastatic prostate cancer Essential hypertension Heart disease Myocardial infarction Neoplasm Prostate Mother , early 70s diabetes complications Diabetes Paternal Grandfather , prostate cancer Neoplasm Prostate Social History Smoking/Tobacco Use Status: Former Tobacco Use Quit Date: 11/26/71 Smoking risk assessment performed?: Yes Alcohol Intake: current Alcohol Intake frequency: other Alcohol type: beer Drug use: Occasionally Substance use type: marijuana Household members: none Housing: house Number of Children: 3 Communication Needs: Corrective Lenses 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 Meds Allergies and Home Medications Allergies Allergy/AdvReac Type Severity Reaction Status Date / Time amoxicillin (From Augmentin) AdvReac Intermediate vomiting, Verified 08/29/24 13:14 GI Upset atenolol AdvReac Intermediate off Verified 08/29/24 13:14 balance, dizzy clavulanic acid (From AdvReac Intermediate vomiting, Verified 08/29/24 13:14 Augmentin) GI Upset Home Medications ?Medication ?Instructions ?Recorded ?Confirmed ?Type vitamin B complex (B 1 tab PO DAILY 05/06/21 09/25/24 History Complex-Vitamin B12 tablet) amlodipine 2.5 mg tablet 2.5 mg PO HS #180 tabs 12/17/23 09/25/24 Rx prednisone 5 mg tablet 5 mg PO DAILY #90 tabs 12/17/23 09/25/24 Rx blood-glucose meter #1 ea 05/19/24 09/25/24 Rx tamsulosin 0.4 mg capsule (Flomax) 0.8 mg (2 x 0.4 mg) PO DAILY #180 05/19/24 09/25/24 Rx tab-caps blood sugar diagnostic #100 ea 06/09/24 09/25/24 Rx lancets #100 ea 06/09/24 09/25/24 Rx aspirin 325 mg tablet 162.5 - 325 mg PO DAILY PRN 06/26/24 09/25/24 History calcium 600 mg (as 2 tab PO DAILY #180 tabs 06/26/24 09/25/24 Rx carbonate)-vitamin D3 20 mcg (800 unit) tablet (Caltrate with Vitamin D3) prednisone 2.5 mg tablet 2.5 mg PO DAILY 06/26/24 09/25/24 History rosuvastatin 5 mg tablet 5 mg PO DAILY #90 tabs 06/26/24 09/25/24 Rx folic acid 1 tab PO DAILY 07/17/24 09/25/24 History methotrexate sodium 10 mg tablet 10 mg PO QWEEK 07/17/24 09/25/24 History Exam Narrative Exam Narrative: General: Patient appears older than stated age and disheveled as well as unshaven, alert and oriented x 3 and in no acute distress. He is eating at the time of my exam. HEENT: Normocephalic, unshaven as mentioned, course and facial features, eyes with pupils equal and reactive to light symmetrically, extraocular movement intact and sclera anicteric. Oropharynx with moist mucosa and fair dentition. Neck: Supple without JVD. Back: Stooped posture without CVA tenderness. Lungs: Decreased aeration diffusely with scattered coarse crackles but no focalization. No rales or rhonchi. No expiratory wheeze. Heart: Regular rate and rhythm with no murmur gallop patient. Abdomen: Obese contour, soft and nontender to palpation with no palpable hepatosplenomegaly. Bowel sounds positive all quadrants. Genitalia/rectal: Exam deferred. Extremities: Without clubbing, cyanosis or pitting edema. Good cap refill. Skin: Rough texture, actinic changes over sun exposed areas, otherwise normal color, warm and dry. Neuro: Cranial nerves II through XII gross intact, no focal motor deficits. No tremor. Psych: Normal affect and mood. No abnormal thought processes. Remote and recent memory intact. Results Imaging Imaging Studies: EXAM: XR PORTABLE CHEST AP CLINICAL HISTORY: fever,cough TECHNIQUE: 2D digital imaging was performed. COMPARISON: CR XR CHEST 2V PA LATERAL from 08/29/2024 FINDINGS: Overlying monitoring leads. Suboptimal penetration at the left lung base. LUNGS: Clear. No pleural abnormality seen. HEART: Normal size. AORTA: Normal diameter. BONES: Unremarkable for age. Soft tissues: Metallic densities again projecting in the neck. IMPRESSION: No acute findings. Labs 09/25/24 09:30 09/25/24 09:30 Labs: Laboratory Results - last 24 hr 09/25/24 09/25/24 08:45 09:30 WBC 13.37 H RBC 3.87 L Hgb 12.2 L Hct 35.5 L MCV 92 MCH 31.5 MCHC 34.4 RDW 12.9 Plt Count 245 MPV 9.6 Immature Gran % 0.4 Neutrophils % 83.4 Lymphocytes % 8.4 Monocytes % 7.4 Eosinophils % 0.3 Basophils % 0.1 Nucleated RBC % 0.0 Absolute Neutrophils 11.15 H Absolute Lymphocytes 1.12 L Absolute Monocytes 0.99 H Absolute Eosinophils 0.04 Absolute Basophils 0.01 VBG pH 7.37 VBG pCO2 46 VBG pO2 35 VBG HCO3 27 VBG Total CO2 25 VBG O2 Saturation 67 VBG Base Excess 2 VBG Lactate 2.3 H* Sodium 138 Potassium 3.9 Chloride 100 Carbon Dioxide 27.0 Anion Gap 11.0 BUN 17 Creatinine 1.5 H Est GFR (CKD-EPI 2020) 48.25 Glucose 221 H Calcium 8.7 Magnesium 2.0 Total Bilirubin 0.49 AST 17 ALT 20 Alkaline Phosphatase 62 Total Protein 6.7 Albumin 3.2 L Procalcitonin < 0.1 COVID-19 Source Nasopharynx SARS-CoV-2 (PCR) Positive A Influenza Type A (PCR) Negative Influenza Type B (PCR) Negative RSV (PCR) Negative Last Vital Signs Temp 37.4 C 09/25/24 10:01 Pulse 89 09/25/24 11:00 Resp 16 09/25/24 08:57 BP 100/47 L 09/25/24 11:00 Pulse Ox 95 09/25/24 11:01 Time Spent Time spent with Patient: >75 minutes Time was spent: preparing to see the patient(eg.review tests), obtaining and/or reviewing separately otained hiistory, ordering medications,tests, procedures, indepentently interpreting results, counseling the patient and care coordination
[2024-09-25 14:40] LABS: Bilirubin Negative (Negative); Blood Negative (Negative); Clarity Clear (Clear); Glucose 100 mg/dL (Negative); Ketones Negative (Negative); Leukocyte Esterase Negative (Negative); Nitrite Negative (Negative); Urobilinogen 0.2 mg/dL (Up to 0.2); pH 5.5 (5-8)
[2024-09-26] VITALS (78 sets, daily range): BP systolic 110–145; BP diastolic 59–76; PULSE 56–85; RESP 16–20; TEMP 36.3–37.1; O2SAT 92–98
[2024-09-26 09:11] LABS: Anion Gap 10.2 mmol/L (3-11); BUN 28 mg/dL (7-18); CO2 24.8 mmol/L (21.0-32.0); CREATININE 1.4 mg/dL (0.70-1.30); Calcium 8.8 mg/dL (8.5-10.1); Chloride 103 mmol/L (98-107); Estimated GFR 52.41 (mL/min/1.73m2); Glucose 214 mg/dL (74-106); Potassium 4.7 mmol/L (3.5-5.1); Sodium 138 mmol/L (136-145)
[2024-09-26 09:12] LABS: Magnesium 2.1 mg/dL (1.8-2.4)
[2024-09-26 09:16] LABS: Abs Immature Grans 0.12 10^3/uL (0.0-0.06); Absolute Basophil Count 0.01 10^3/uL (0.0-0.2); Absolute Monocyte Count 0.83 10^3/uL (0.1-0.8); Absolute Neutrophil Count 10.68 10^3/uL (1.2-6.7); Basophils % 0.1 %; HCT 33.5 % (40.0-50.0); HGB 11.6 g/dL (13.5-17.5); Lymphocytes % 5.7 %; MCH 31.3 pg (27.0-33.0); MCHC 34.6 % (32.0-36.0); MCV 90 fL (80-95); MPV 10.2 fL (8.0-11.0); Monocytes % 6.7 %; Neutrophils % 86.5 %; Platelet Count 238 10^3/uL (130-400); RBC 3.71 10^6/uL (4.36-5.78); RDW-SD 42.5 fL; WBC 12.35 10^3/uL (4.4-10.8)
--- NOTE | 2024-09-26 09:31 | PDOC.CMIN ---
Date of service: 09/26/24 Time of Service: 09:31 Care Management Initial Assmt Initial Assessment Reason for Hospitalization: Pneumonia secondary to Covid Functional Status/Living Situation Patient Presentation: Judson is on Covid precautions so CM was unable to meet with him in person. Several attempts to reach him by phone were unsuccessful. Information was obtained through discussions with staff and chart review. Judson does have a sister in [place] however she is not listed on his HIPAA, making contact problematic. Town of Residence: homeless Significant Other/Family: Out of area (has sister in [place]) Employment Status: Retired Medications Medication Management: No Issues/Barriers identified Advance Directives Advance Directives: Do you have an Advance Directive: N 03/03/19 11:30 AD On File at [facility]: N 03/03/19 11:30 Date Asked 09/25/24 09/25/24 08:52 AD Date Reviewed COLST On File at [facility] COLST Date Scanned Code Status Resuscitation Status Full Code Portal Pt does not currently have a portal and education provided: No Insurance Coverage/Financial Issues Insurance: Medicare Medicaid Financial Issues: homeless Care Team Visit Care Team Role Provider Type Yesy Nagy NP Primary Care Provider NURSE PRACTITIONER Red Fletcher MD Emergency Provider [facility] STAFF PHYSICIAN Judson Meza Admit Provider NON-[facility] STAFF PHYSICIAN Attending Provider Discharge Potential Discharge Needs: PCP F/U Appt Anticipated Barriers to Discharge: SDOH Patient/Family Education Needs: Review discharge instructions, discuss Ask Me Three Transportation: RCT Plan: Anticipate Judson will be discharged back to the community when medically cleared. He has been living in a [place] [facility] [place]; it is unknown if he will be able to return right away because of his Covid infection. CM will follow and continue to assess for discharge needs. PFSH All Active Problems (Updated 09/26/24 @ 19:20 by Red Peoples MD) Pneumonia due to COVID-19 virus (Acute) History of alcohol abuse (Chronic 05/07/18) GCA (giant cell arteritis) (Chronic ~11/2022) [facility] Actremra 01/2023; discontinued in favor of daily prednisone 7.5mg daily; switched to methotrexate 06/2024 Steroid-induced diabetes (Chronic ~09/2022) Medical History (Updated 09/26/24 @ 19:20 by Red Peoples MD) Nail dystrophy Onychomycosis Immunosuppressed status LT prednisone for GCA On prednisone therapy (~04/2022) Abnormal gait (~06/2022) Peripheral neuropathy + vestibular ([facility] 01/2023) Elevated lipoprotein A level (~12/2021) Declines statin Hyperlipidemia (~07/2021) Recommend statin 07/2021; [employer] [place] Read obtained lipoprotein a, elevated--> cardiology recommends consider statin 01/2022 Family history of prostate cancer in father Also PGF Benign prostatic hyperplasia (05/13/18) RX Flomax Hypertension (05/07/18) Goal 135-145 (lower & he feels poor)--didn't tolerate Lisinopril Peripheral neuropathy (05/07/18) EtOH related; [facility] 2017 & 2022 Diverticulosis (~08/2023) Cataracts, both eyes [place] 07/24/24 not visually significant Dizziness Anemia in CKD (chronic kidney disease) Anemia (~08/2022) Lightheadedness PMR (polymyalgia rheumatica) (~04/2022) COVID-19 (~08/2023) Impaired fasting glucose (05/07/18) Monitor annual A1Cs; +fam hx DMT2 Candidal paronychia Elevated serum creatinine Left scapholunate ligament tear Fracture of distal end of left radius (10/26/22) Immunization refused (~02/2022) Tachycardia laboratory monitor stable--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 Seborrheic dermatitis of scalp Edema of lower extremity (05/07/18) Occurred x1, RX Furosemide and never reoccurred even off Furosemide Anxiety (05/07/18) GERD (gastroesophageal reflux disease) (05/07/18) Hepatomegaly (05/07/18) Resolved off EtOH Surgical History Tonsillectomy Appendectomy Family History Father , 73yo from metastatic prostate cancer Essential hypertension Heart disease Myocardial infarction Neoplasm Prostate Mother , early 70s diabetes complications Diabetes Paternal Grandfather , prostate cancer Neoplasm Prostate Social History Smoking/Tobacco Use Status: Former Tobacco Use Quit Date: 11/26/71 Smoking risk assessment performed?: Yes Alcohol Intake: current Alcohol Intake frequency: other Alcohol type: beer Drug use: Occasionally Substance use type: marijuana Household members: none Housing: other Number of Children: 3 Communication Needs: Corrective Lenses 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 Current gender identity: male What is your relationship status?: Panel score (0-1 are the most socially isolated patients): 0 What type of physical activity do you participate in: walking Duration: 15-30 minutes/day Frequency: 3-4 times per week Seatbelt use: always Drive intox or 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: No Working smoke detector in home: Yes Fire extinguisher in home: Yes Carbon monox detector in home: Yes Do you feel safe at home: Yes Do you feel safe in your relationship?: Yes SDOH(Care Management) Screening Will the Patient Participate in the Screening?: Yes Do you worry about having a steady place to live?: yes In the past 12 months, have you had to go without electric, gas, oil or water in your home?: choose not to answer Have you or anyone in your house had to go without enough food to eat?: choose not to answer Has lack of transportation kept you from medical appointments or from doing things needed for daily living?: choose not to answer Has anyone in your support network made you feel unsafe for any reason?: choose not to answer Health Related Social Needs Health related social needs: housing instability, housed, with risk of homelessness(Z59.811) Health related social needs details[place] living [place] [facility] [place]
[2024-09-26 09:45] LABS: TSH (W/Ref FT4) 0.38 uIU/mL (0.36-3.74)
[2024-09-26] MEDS: Calcium 600mg/Vit D 200U TAB 2 TAB PO (10:07)
[2024-09-26] MEDS: Tamsulosin 0.4 MG CAPCR 0.8 MG PO (10:07)
[2024-09-26] MEDS: Enoxaparin 40 MG/0.4 ML SYR SC (10:08)
[2024-09-26] MEDS: Folic Acid 1 MG TAB PO (10:08)
[2024-09-26] MEDS: Rosuvastatin 5 MG TAB PO (10:08)
[2024-09-26] MEDS: Dexamethasone 10 MG/ML VIAL 6 MG IVP (10:08)
[2024-09-26] MEDS: Insulin Aspart 300 UNITS/3 ML PEN SC ×4 (10:12→21:32)
--- NOTE | 2024-09-26 13:54 | W.PC.ACHO ---
Registration Status: Primary Language: Preferred Language: ED Information & Data Chief Complaint Fever 09/25/24 09:02 Triage Note weakness started last night. 09/25/24 08:41 fever today. 100.6f by ems. had soup this morning. chronic steroid use for GCA. Medical / Surgical History (Last Reviewed 09/25/24 @ 12:32 by Judson Meza) Anemia (~08/2022) Lightheadedness PMR (polymyalgia rheumatica) (~04/2022) COVID-19 (~08/2023) Impaired fasting glucose (05/07/18) Candidal paronychia Elevated serum creatinine Left scapholunate ligament tear Fracture of distal end of left radius (10/26/22) Immunization refused (~02/2022) Tachycardia Seborrheic dermatitis of scalp Edema of lower extremity (05/07/18) Anxiety (05/07/18) GERD (gastroesophageal reflux disease) (05/07/18) Hepatomegaly (05/07/18) (Last Reviewed 09/25/24 @ 12:32 by Judson Meza) Tonsillectomy Appendectomy Most Recent Vital Signs Temperature 37.1 C 09/26/24 07:33 Temperature Source Temporal Artery Scan 09/26/24 07:33 Pulse 58 L 09/26/24 12:01 Respiratory Rate 20 09/26/24 07:33 Respiratory Effort Incrsd Work of Breathing 09/25/24 08:52 Blood Pressure 145/69 H 09/26/24 12:01 Blood Pressure Mean 93 09/26/24 12:01 Pulse Oximetry 94 09/26/24 13:20 Oxygen Delivery Method Nasal Cannula 09/26/24 07:33 Oxygen Flow Rate 2 09/26/24 07:33 Pain Level 0 09/26/24 07:33 Comment placed on 2 liters oxygen 09/25/24 08:55 Allergies amoxicillin (From Augmentin) Adverse Reaction (Intermediate, Verified 08/29/24 13:14) vomiting, GI Upset atenolol Adverse Reaction (Intermediate, Verified 08/29/24 13:14) off balance, dizzy clavulanic acid (From Augmentin) Adverse Reaction (Intermediate, Verified 08/29/24 13:14) vomiting, GI Upset Active Medications Generic Name Dose Route Start Last Admin Trade Name Freq PRN Reason Stop Dose Admin Calcium/Vitamin D 2 tab 09/26/24 08:30 09/26/24 10:07 Calcium 600mg/Vit D 200u Tab PO 2 tab DAILY SHARATH Administration Dexamethasone 6 mg 09/26/24 10:00 09/26/24 10:08 Dexamethasone 10 Mg/Ml Vial IVP 6 mg DAILY SHARATH Administration Enoxaparin Sodium 40 mg 09/26/24 10:00 09/26/24 10:08 Enoxaparin 40 Mg/0.4 Ml Syr SC 40 mg Q24H SHARATH Administration Folic Acid 1 mg 09/26/24 08:30 09/26/24 10:08 Folic Acid 1 Mg Tab PO 1 mg QAM SHARATH Administration Remdesivir 100 mg/ Sodium 100 mls @ 100 mls/hr 09/26/24 10:00 09/26/24 11:08 Chloride IVPB 09/29/24 10:59 Infused Q24H SHARATH Infusion Insulin Aspart 0 units 09/26/24 08:19 09/26/24 10:12 Insulin Aspart 300 Units/3 Ml Pen SC 8 unit 0800,1200,1700,2200 SHARATH Administration Protocol Rosuvastatin Calcium 5 mg 09/26/24 08:30 09/26/24 10:08 Rosuvastatin 5 Mg Tab PO 5 mg DAILY SHARATH Administration Tamsulosin HCl 0.8 mg 09/26/24 08:30 09/26/24 10:07 Tamsulosin 0.4 Mg Capcr PO 0.8 mg DAILY SHARATH Administration IV IV Catheter Type [Right Wrist] Saline Lock IV Catheter Gauge [Right Wrist 20 ] Diet Orders Category Date Time Status Diabetes Consistent CHO/Heart Healthy [DIET] Nutrition 09/26/24 Lunch Active Diagnostics 09/26/24 09/25/24 Range/Units 06:18 14:28 WBC 12.35 H (4.4-10.8) 10^3/uL RBC 3.71 L (4.36-5.78) 10^6/uL Hgb 11.6 L (13.5-17.5) g/dL Hct 33.5 L (40.0-50.0) % MCV 90 (80-95) fL MCH 31.3 (27.0-33.0) pg MCHC 34.6 (32.0-36.0) % RDW 13.0 (11.8-14.1) % Plt Count 238 (130-400) 10^3/uL MPV 10.2 (8.0-11.0) fL Immature Gran % 1.0 % Neutrophils % 86.5 % Lymphocytes % 5.7 % Monocytes % 6.7 % Eosinophils % 0.0 % Basophils % 0.1 % Nucleated RBC % 0.0 (0.0-0.3) % Absolute Neutrophils 10.68 H (1.2-6.7) 10^3/uL Absolute Lymphocytes 0.70 L (1.2-3.4) 10^3/uL Absolute Monocytes 0.83 H (0.1-0.8) 10^3/uL Absolute Eosinophils 0.00 (0.0-0.7) 10^3/uL Absolute Basophils 0.01 (0.0-0.2) 10^3/uL Sodium 138 (136-145) mmol/L Potassium 4.7 (3.5-5.1) mmol/L Chloride 103 (98-107) mmol/L Carbon Dioxide 24.8 (21.0-32.0) mmol/L Anion Gap 10.2 (3-11) mmol/L BUN 28 H (7-18) mg/dL Creatinine 1.4 H (0.70-1.30) mg/dL Est GFR (CKD-EPI 2020) 52.41 (mL/min/1.73m2) Glucose 214 H (74-106) mg/dL Calcium 8.8 (8.5-10.1) mg/dL Magnesium 2.1 (1.8-2.4) mg/dL TSH 0.38 (0.36-3.74) uIU/mL Urine Color Yellow (Yellow) Urine Clarity Clear (Clear) Urine pH 5.5 (5-8) Ur Specific [place] 1.020 (1.005-1.025) Urine Protein Negative (Neg-Trace) mg/dL Urine Ketones Negative (Negative) mg/dL Urine Blood Negative (Negative) Urine Nitrite Negative (Negative) Urine Bilirubin Negative (Negative) Urine Urobilinogen 0.2 (Up to 0.2) mg/dL Ur Leukocyte Esterase Negative (Negative) Urine Glucose 100 H (Negative) mg/dL 09/25/24 09:43 Blood Culture - Preliminary Blood NO GROWTH 24 HOURS 09/25/24 09:30 Blood Culture - Preliminary Blood NO GROWTH 24 HOURS [id number] Documentation Fingerstick Glucose Start: 09/26/24 07:36 Freq: Status: Complete Protocol: Activity Type Activity Date Activity User E-sign Co-sign Detail Recorded Client Recorded Date Recorded By Document 09/26/24 07:37 NMICHAEL [id number] 09/26/24 07:37 KELVIN Fingerstick Glucose Start: 09/26/24 08:19 Freq: AC & HS Status: Active Protocol: Activity Type Activity Date Activity User E-sign Co-sign Detail Recorded Client Recorded Date Recorded By Document 09/26/24 13:42 NPEDRO [id number] 09/26/24 13:42 NPEDRO Intake and Output - 24 Hour Total 09/25/24 08:34 thru 09/26/24 11:08 Intake Total 200 Balance 200 Weight 74.6 kg Intake: IV 200 Falls Risk Assessment History of Falls Previous History 09/25/24 08:54 Contributing Factors Impairments 09/25/24 08:54 Ambulatory Aids Independent 09/25/24 08:54 Tubes/Lines None 09/25/24 08:54 Gait Evaluation W/no contributing factors 09/25/24 08:54 Cognition No cognitive impairment 09/25/24 08:54 Fall Total Score 28 09/25/24 08:54 Level of Risk Moderate Risk 09/25/24 08:54 Problems (Last Reviewed 09/25/24 @ 12:32 by Judson Meza) Anemia in CKD (chronic kidney disease) (Chronic) Pneumonia due to COVID-19 virus (Acute) Hypertension (Chronic 05/07/18) Hyperlipidemia (Chronic ~07/2021) GCA (giant cell arteritis) (Chronic ~11/2022) Steroid-induced diabetes (Chronic ~09/2022) v v v v v v v v v Sending and/or Receiving Nurses: Please use comment section below to note any information pertinent to the patient hand-off not included above. Information / Comments: Pt going to room 228 via stretcher Report received from: Rubi MCINTYRE, at [phone]
--- NOTE | 2024-09-26 14:12 | PHA.REVIEW2 ---
Pharmacy Admission Review Admission Clinical Review Admission Pharmacy Review: Pneumonia due to COVID-19 virus (Acute) amoxicillin (From Augmentin) Adverse Reaction (Intermediate, Verified 08/29/24 13:14) vomiting, GI Upset atenolol Adverse Reaction (Intermediate, Verified 08/29/24 13:14) off balance, dizzy clavulanic acid (From Augmentin) Adverse Reaction (Intermediate, Verified 08/29/24 13:14) vomiting, GI Upset Resuscitation Status Full Code Height 5 ft 7.5 in Weight 74.6 kg Pharmacy Admission Review Renal Dosing Renal Dosing: BUN 28 mg/dL (7-18) H 09/26/24 06:18 Creatinine 1.4 mg/dL (0.70-1.30) H 09/26/24 06:18 Medications needing adjustments: Reviewed (CrCl 48 mL/min, BUN increased from 17 and SCr decreased from 1.5) List of meds needing interventions: Current medications are okay Anticoagulation Anticoagulation: Hgb 11.6 g/dL (13.5-17.5) L 09/26/24 06:18 Hct 33.5 % (40.0-50.0) L 09/26/24 06:18 Plt Count 238 10^3/uL (130-400) 09/26/24 06:18 Creatinine 1.4 mg/dL (0.70-1.30) H 09/26/24 06:18 DVT Prophylaxis: Reviewed (Hgb decreased from 12.2) Medications: Enoxaparin (40mg daily) Relevant Labs Relevant Labs: Sodium 138 mmol/L (136-145) 09/26/24 06:18 Potassium 4.7 mmol/L (3.5-5.1) 09/26/24 06:18 Chloride 103 mmol/L (98-107) 09/26/24 06:18 Magnesium 2.1 mg/dL (1.8-2.4) 09/26/24 06:18 Electrolytes, C-Reactive P, ESR: Reviewed (WBC decreased from 13.37 to 12.35, blood = no growth @24 hours) DM Control DM Control: Glucose 214 mg/dL (74-106) H 09/26/24 06:18 Finger Stick Blood Glucose 141 1353 Finger Stick Blood Glucose 141 1350 Finger Stick Blood Glucose 141 1342 Finger Stick Blood Glucose 281 1012 Finger Stick Blood Glucose 237 0737 DM Control: Reviewed Insulin Dosing, Diabetic Medication: Has order for SS insulin. Currently receiving 6mg IVP dexamethasone daily. Cardiac Review BP, HR, EF%: Reviewed (BP 145/69 - has been WNL otherwise, HR 58) List meds needing interventions: Has order for amlodipine 2.5mg HS QTc Review QTc: Reviewed (443 from 08/29/24 - most recent EKG on file) IV to PO Switch IV Medications: Reviewed (dexamethasone and remdesivir) Home Meds Home Med List reviewed: Reviewed Relevent Home Meds Not ordered & why?: aspirin, methotrexate (weekly) and prednisone (has order for IVP dexamethasone) Current Meds Current Medication Order Review: Intervened Comments: Order put in yesterday for now one remdesivir 200mg, no other orders put in. Reached out to provider today to see if this was supposed to be continued. Provider put in order for remdesivir 100mg daily. Patient currently on day 2/5 for COVID.
--- NOTE | 2024-09-26 19:18 | W.PM.PROGNOT ---
Date of Service Date of service: 09/26/24 Time of Service: 19:18 Assessment and Plan Assessment and plan (1) Pneumonia due to COVID-19 virus: Status: Acute Assessment and plan: COVID-19 positive. He appears to be recovering well. He is off O2. He feels much better. Plan is to complete 3 days of remdesivir prior to discharge. He should be immunized against flu RSV prior to discharge. Consider updating his Pneumovax. (2) History of alcohol abuse: Status: Chronic Assessment and plan: Remote history of alcohol abuse. It does not appear to be a problem this admission no signs of withdrawal. (3) GCA (giant cell arteritis): Status: Chronic Assessment and plan: On chronic steroids. He did like to be on 7 mg daily but because he gets 2.5 mg tablets he can only achieve 7.5 mg daily. Will try giving 1 mg tablets at discharge so he can take to 2.5 mg tablets and to 1 mg tablets. He was agreeable with this plan. (4) Steroid-induced diabetes: Status: Chronic Assessment and plan: Blood sugar 214 today. Will monitor because of the dexamethasone it may make his sugars worse. Qualifiers: Encounter type: subsequent encounter Qualified Code(s): E09.9 - Drug or chemical induced diabetes mellitus without complications; T38.0X5D - Adverse effect of glucocorticoids and synthetic analogues, subsequent encounter Subjective Subjective Interval history since last seen: Admitted from longterm yesterday with positive COVID. He is feeling quite a bit better today. He is no longer on oxygen. His appetite is good. He is wondering how long he will have to stay in the hospital. Exam Narrative Exam Narrative: Disheveled appearing man in no significant distress. He is cooperative with exam. Posterior lung exam sounded completely clear on the right and left. Heart sounds were regular. Abdomen was overall soft and nontender. His lower extremity showed good perfusion and no edema. Objective Last Vital Signs Temp 36.3 C L 09/26/24 14:13 Pulse 70 09/26/24 14:13 Resp 16 09/26/24 14:13 BP 124/64 09/26/24 14:13 Pulse Ox 94 09/26/24 14:13 Laboratory Results - last 24 hr 09/26/24 06:18 WBC 12.35 H RBC 3.71 L Hgb 11.6 L Hct 33.5 L MCV 90 MCH 31.3 MCHC 34.6 RDW 13.0 Plt Count 238 MPV 10.2 Immature Gran % 1.0 Neutrophils % 86.5 Lymphocytes % 5.7 Monocytes % 6.7 Eosinophils % 0.0 Basophils % 0.1 Nucleated RBC % 0.0 Absolute Neutrophils 10.68 H Absolute Lymphocytes 0.70 L Absolute Monocytes 0.83 H Absolute Eosinophils 0.00 Absolute Basophils 0.01 Sodium 138 Potassium 4.7 Chloride 103 Carbon Dioxide 24.8 Anion Gap 10.2 BUN 28 H Creatinine 1.4 H Est GFR (CKD-EPI 2020) 52.41 Glucose 214 H Calcium 8.8 Magnesium 2.1 TSH 0.38 Time Spent with Patient Time Spent with Patient: 35-49 minutes Time was spent: preparing to see the patient(eg.review tests), obtaining and/or reviewing separately otained hiistory, ordering medications,tests, procedures, referring, communicating with other health property caretaker, indepentently interpreting results and counseling the patient
[2024-09-26] MEDS: Normal Saline Flush 10 ML SYR IVP (21:29)
[2024-09-26] MEDS: amLODIPine 2.5 MG TAB PO (21:29)
[2024-09-27 06:10] VITALS: BP 132/85; PULSE 59; RESP 16; TEMP 36.5; O2SAT 97
[2024-09-27 07:14] LABS: HCT 34.4 % (40.0-50.0); HGB 12.1 g/dL (13.5-17.5); MCH 31.6 pg (27.0-33.0); MCHC 35.2 % (32.0-36.0); MCV 90 fL (80-95); MPV 9.7 fL (8.0-11.0); Platelet Count 238 10^3/uL (130-400); RBC 3.83 10^6/uL (4.36-5.78); RDW 13.1 % (11.8-14.1); RDW-SD 42.8 fL; WBC 16.11 10^3/uL (4.4-10.8)
[2024-09-27 07:36] LABS: ALT 21 U/L (16-63); AST 15 U/L (15-37); Albumin 2.9 g/dL (3.4-5.0); Alkaline Phosphatase 56 U/L (46-116); Anion Gap 11.7 mmol/L (3-11); BUN 34 mg/dL (7-18); CO2 26.3 mmol/L (21.0-32.0); CREATININE 1.3 mg/dL (0.70-1.30); Calcium 9.3 mg/dL (8.5-10.1); Chloride 101 mmol/L (98-107); Estimated GFR 57.29 (mL/min/1.73m2); Glucose 211 mg/dL (74-106); Magnesium 2.1 mg/dL (1.8-2.4); Potassium 4.3 mmol/L (3.5-5.1); Sodium 139 mmol/L (136-145); Total Protein 6.7 g/dL (6.4-8.2)
[2024-09-27 08:06] VITALS: BP 144/66; PULSE 56; RESP 16; TEMP 36.3; O2SAT 96
[2024-09-27] MEDS: Insulin Aspart 300 UNITS/3 ML PEN SC ×4 (08:48→22:01)
[2024-09-27] MEDS: Dexamethasone 10 MG/ML VIAL 6 MG IVP (09:07)
[2024-09-27] MEDS: Rosuvastatin 5 MG TAB PO (09:08)
[2024-09-27] MEDS: Calcium 600mg/Vit D 200U TAB 2 TAB PO (09:08)
[2024-09-27] MEDS: Vitamins B Comp w/C TAB 1 TAB PO (09:08)
[2024-09-27] MEDS: Folic Acid 1 MG TAB PO (09:08)
[2024-09-27] MEDS: Normal Saline Flush 10 ML SYR IVP ×4 (09:08→22:18)
[2024-09-27] MEDS: Enoxaparin 40 MG/0.4 ML SYR SC (09:09)
[2024-09-27] MEDS: Tamsulosin 0.4 MG CAPCR 0.8 MG PO (11:23)
[2024-09-27 11:48] VITALS: BP 137/80; PULSE 61; RESP 18; TEMP 36.8; O2SAT 95
[2024-09-27 15:55] VITALS: BP 138/80; PULSE 61; RESP 19; TEMP 36.3; O2SAT 98
[2024-09-27] MEDS: Acetaminophen 325 MG TAB PO (17:16)
--- NOTE | 2024-09-27 17:47 | W.PM.PROGNOT ---
Date of Service Date of service: 09/27/24 Time of Service: 16:23 Assessment and Plan Assessment and plan (1) Pneumonia due to COVID-19 virus: Status: Acute Assessment and plan: Lungs are quite clear. He is off oxygen. He has had 3 doses of the remdesivir. He is on the dexamethasone 6 mg IV push daily. Possible discharge tomorrow after he finishes remdesivir. He has not required supplemental antibiotics. (2) GCA (giant cell arteritis): Status: Chronic Assessment and plan: No symptoms while on the dexamethasone. Once he comes off that we will resume the prednisone at 7 mg daily. (3) Steroid-induced diabetes: Status: Chronic Assessment and plan: Blood sugars have been running in the 200s. Once we get him off the dexamethasone that should improve. Qualifiers: Encounter type: subsequent encounter Qualified Code(s): E09.9 - Drug or chemical induced diabetes mellitus without complications; T38.0X5D - Adverse effect of glucocorticoids and synthetic analogues, subsequent encounter Subjective Subjective Interval history since last seen: Continues to feel better from a respiratory point of view. Overall energy level is down today feels tired and weak. He does not feel ready to return to the senior living. He describes some body ache. Exam Narrative Exam Narrative: He sitting up in bed in no apparent distress. He has a number of tissues around him but does not have a cough or a lot of nasal drainage. Breathing was not at all labored. His lungs sounded completely clear on the right and left. Objective Last Vital Signs Temp 36.3 C L 09/27/24 15:55 Pulse 61 09/27/24 15:55 Resp 19 09/27/24 15:55 BP 138/80 09/27/24 15:55 Pulse Ox 98 09/27/24 15:55 Laboratory Results - last 24 hr 09/27/24 07:03 WBC 16.11 H RBC 3.83 L Hgb 12.1 L Hct 34.4 L MCV 90 MCH 31.6 MCHC 35.2 RDW 13.1 Plt Count 238 MPV 9.7 Sodium 139 Potassium 4.3 Chloride 101 Carbon Dioxide 26.3 Anion Gap 11.7 H BUN 34 H Creatinine 1.3 Est GFR (CKD-EPI 2020) 57.29 Glucose 211 H Calcium 9.3 Magnesium 2.1 Total Bilirubin 0.30 AST 15 ALT 21 Alkaline Phosphatase 56 Total Protein 6.7 Albumin 2.9 L Time Spent with Patient Time Spent with Patient: 25-34 minutes (Donning and doffing) Time was spent: preparing to see the patient(eg.review tests), obtaining and/or reviewing separately otained hiistory, ordering medications,tests, procedures, indepentently interpreting results and counseling the patient
[2024-09-27] MEDS: amLODIPine 2.5 MG TAB PO (21:57)
[2024-09-27 21:58] VITALS: BP 120/70; PULSE 72; RESP 18; TEMP 36.7; O2SAT 96
[2024-09-28 05:19] VITALS: BP 137/67; PULSE 51; RESP 18; TEMP 36.7; O2SAT 96
[2024-09-28 06:49] LABS: Abs Immature Grans 0.07 10^3/uL (0.0-0.06); Absolute Basophil Count 0.01 10^3/uL (0.0-0.2); Absolute Neutrophil Count 12.42 10^3/uL (1.2-6.7); Basophils % 0.1 %; HCT 36.2 % (40.0-50.0); HGB 12.6 g/dL (13.5-17.5); Immature Grans % 0.5 %; Lymphocytes % 10.3 %; MCH 31.3 pg (27.0-33.0); MCHC 34.8 % (32.0-36.0); MCV 90 fL (80-95); Monocytes % 5.6 %; Neutrophils % 83.5 %; Platelet Count 252 10^3/uL (130-400); RBC 4.02 10^6/uL (4.36-5.78); RDW 12.9 % (11.8-14.1); RDW-SD 42.5 fL; WBC 14.88 10^3/uL (4.4-10.8)
[2024-09-28 06:52] LABS: Absolute Lymphocyte Count 1.53 10^3/uL (1.2-3.4); Absolute Monocyte Count 0.83 10^3/uL (0.1-0.8)
[2024-09-28 07:02] LABS: Anion Gap 8.7 mmol/L (3-11); BUN 32 mg/dL (7-18); CO2 27.3 mmol/L (21.0-32.0); CREATININE 1.3 mg/dL (0.70-1.30); Calcium 9.4 mg/dL (8.5-10.1); Chloride 102 mmol/L (98-107); Estimated GFR 57.29 (mL/min/1.73m2); Glucose 220 mg/dL (74-106); Potassium 4.2 mmol/L (3.5-5.1); Sodium 138 mmol/L (136-145)
[2024-09-28 08:26] VITALS: BP 152/88; PULSE 59; RESP 19; TEMP 36.9; O2SAT 99
[2024-09-28] MEDS: Insulin Aspart 300 UNITS/3 ML PEN SC ×2 (09:02→12:18)
[2024-09-28] MEDS: Tamsulosin 0.4 MG CAPCR 0.8 MG PO (09:03)
[2024-09-28] MEDS: Dexamethasone 10 MG/ML VIAL 6 MG IVP (09:03)
[2024-09-28] MEDS: Calcium 600mg/Vit D 200U TAB 2 TAB PO (09:03)
[2024-09-28] MEDS: Rosuvastatin 5 MG TAB PO (09:04)
[2024-09-28] MEDS: Folic Acid 1 MG TAB PO (09:04)
[2024-09-28] MEDS: Enoxaparin 40 MG/0.4 ML SYR SC (09:14)
[2024-09-28] MEDS: Vitamins B Comp w/C TAB 1 TAB PO (09:47)
[2024-09-28] MEDS: Normal Saline Flush 10 ML SYR IVP ×2 (09:47→10:08)
--- NOTE | 2024-09-28 12:24 | PDOC.CMDIS ---
Date of service: 09/28/24 Time of Service: 12:24 LACE Index Scoring Tool Questions: Length of Stay (in days): 3 Was the patient admitted via the E.D.?: Yes Comorbidities: Liver or Renal Disease E.D. Visits: 2 Answers: Total Score: 13 Risk of Readmission: High Risk Care Management Discharge Plan Reason for Hospitalization: pneumonia due to Covid Discharge Plan: Judson will be discharged today with no new services. He will return to the senior care and continue per his plan of care. He will f/u with his PCP. He will transport via RCT private vehicle. Patient/Family Education Needs: Review of discharge instructions, activity, limitations and f/u plan. Discuss Ask me 3. SDOH Health Related Social Needs: Health related social needs housing instability, housed, with risk of homelessness(Z59.811) Health related social needs details living at homeless senior care Health related social needs: housing instability, housed, with risk of homelessness(Z59.811) Health related social needs details: living at homeless senior care
--- NOTE | 2024-09-28 12:44 | DSE_ITS ---
Date of service: 09/28/24 Time of Service: 12:45 DS: Diagnosis Discharge Diagnosis (1) Pneumonia due to COVID-19 virus: Status: Acute Asessment and Plan: Patient presented with URI symptoms and a swab positive for COVID. His x-ray showed some atelectasis but was not considered an infiltrate. He received Rocephin and azithromycin in the ED but it was not continued. He never had a significant oxygen requirement and in fact spent most of the time off O2 with sats in the 95 to 96% range. He does not need home O2. He received 4 full days of remdesivir and high-dose dexamethasone. He is to resume his outpatient prednisone at 7 mg daily for GCA. (2) GCA (giant cell arteritis): Status: Chronic Asessment and Plan: He is on chronic steroids and weekly methotrexate. His symptoms have been stable on this regimen. (3) Steroid-induced diabetes: Status: Chronic Asessment and Plan: Blood sugars have been in the 200s during his stay. They were not treated aggressively because of his acute illness. Resume previous meds. Discharge Plan Disposition Patient Disposition: Home Condition: Improving Discharge Details Reason For Visit: Calex/Weakness Admit Date/Time: 09/25/24 12:42 Admit Provider: Judson Meza Attending Provider: Judson Meza Primary Care Provider: Yesy Nagy Hospital Course Hospital Course: This is a 73-year-old gentleman who had COVID pneumonia last year, presents with fever and hypoxemia. +COVID swab. Admitted for supportive care with remdesivir initiated and the dexamethasone to be continued IV. He will be at the increased dose of dexamethasone because of his chronic use of prednisone. Overall he did well and did not require IV antibiotics. He was eating and drinking well not requiring hydration. He was a full code. On the day of discharge he expressed some depression and not wanting to go 1. He had no plan but was hoping that his life would and sooner. He has a lot of situational depression about losing his apartment and where he is going from here. Further follow-up with counseling recommended. Home Meds and New Rx's Prescriptions: New prednisone 1 mg tablet 1 mg PO DAILY MDD 7 mg daily Qty: 60 1RF Rx Instructions: Use with your 2.5 or 5 mg tablets to make 7 mg daily Continued prednisone 5 mg tablet 5 mg PO DAILY Qty: 90 1RF amlodipine 2.5 mg tablet 2.5 mg PO HS MDD 5mg/24h Qty: 180 3RF Rx Instructions: Dose reduction 11/2023, but may increase to 5mg daily if BP not at goal <140/90 vitamin B complex [B Complex-Vitamin B12] Tablet 1 tab PO DAILY tamsulosin [Flomax] 0.4 mg capsule 0.8 mg PO DAILY Qty: 180 3RF Rx Instructions: Enlarged prostate; dose increase 03/29/2023 (DME) blood-glucose meter Kit See Rx Instructions .Route Qty: 1 0RF Rx Instructions: ONE TOUCH METER As directed to check blood glucose daily. No insulin. DX:E11.9 to maintain Hba1c <7% prednisone 2.5 mg tablet 2.5 mg PO DAILY aspirin 325 mg tablet 162.5 - 325 mg PO DAILY PRN calcium carbonate-vitamin D3 [Caltrate with Vitamin D3] 600 mg-20 mcg (800 unit) tablet 2 tab PO DAILY Qty: 180 3RF Rx Instructions: For bone health while on prednisone rosuvastatin 5 mg tablet 5 mg PO DAILY Qty: 90 3RF Rx Instructions: For cholesterol, steroid-induced diabetes (DME) blood sugar diagnostic Strip See Rx Instructions .Route Qty: 100 3RF Rx Instructions: One touch test strips to check blood glucose daily. no insulin. DX:E11.9 to maintain Hba1c <7% (DME) lancets Misc See Rx Instructions .Route Qty: 100 3RF Rx Instructions: E11.9 for daily monitoring for A1C <=7% One touch lancets methotrexate sodium 10 mg tablet 10 mg PO QWEEK folic acid 1 tab PO DAILY Discharge Instructions Instructions: COVID-19 in adults - Discharge instructions Referrals: Yesy Nagy CONTINUOUS IMPROVEMENT COACH [Primary Care Provider] - Activity:: Activity as Tolerated Equipment/Supplies:: No Equipment Needed Diet:: Carb Counting Discharge Orders Discharge Orders: Discharge Order (Routine); Ordered 09/28/24 Ordered By: Red Peoples DS: Summary Time Spent with Patient providing and/or coordinating discharge services: Greater than 30 minutes Status at Discharge Functional status at discharge: independent ambulation Overall status at discharge: patient is progressing back to baseline Mental Status: other (Depressed mood) Speech and Movement: speech and movement normal Mood: dysthymic mood and other (Depressed mood) Affect: sad Quality:SDOH Health Related Social Needs: Health related social needs housing instability, house d, with risk of homelessness(Z59.811) Health related social needs details living at homeless residential Health related social needs details: living at homeless residential Exam Narrative Exam Narrative: On exam he is somewhat disheveled and poorly kempt but awake alert and in no apparent distress. He was somewhat sad today and concerned about where he goes from here. He was not actively suicidal but did wish that he would soon by natural causes because of his overall life situation. His breathing was not at all labored. He continues to have some scattered rhonchi but no focal rales. Psych Mental Status: other (Depressed mood) Speech and Movement: speech and movement normal Mood: dysthymic mood and other (Depressed mood) Affect: sad DS: Data Vitals/I&O Vitals and I&O: Vital Signs Temperature 36.9 C 09/28/24 08:26 Temperature Source Tympanic 09/28/24 08:26 Pulse 59 L 09/28/24 08:26 Pulse Rhythm Regular 09/26/24 14:13 Respiratory Rate 19 09/28/24 08:26 Respiratory Effort Normal 09/26/24 14:13 Respiratory Depth Normal 09/26/24 14:13 Respiratory Pattern Normal 09/26/24 14:13 Blood Pressure 152/88 H 09/28/24 08:26 Blood Pressure Mean 93 09/26/24 12:01 Pulse Oximetry 99 09/28/24 08:26 Oxygen Delivery Method Nasal Cannula 09/28/24 08:26 Oxygen Flow Rate 1 09/28/24 08:26 Pain Level 1 09/28/24 08:26 Comment RN Notified 09/28/24 05:19 Intake & Output 09/27/24 09/28/24 09/28/24 23:59 10:59 23:59 Intake Total 100 / 110 110 / 110 Balance 100 / 110 110 / 110 Intake: IV 100 / 110 110 / 110 Other: Comment unknown void into toilet Data Completed and Pending Labs on day of discharge: Labs from last 24 hours 09/28/24 06:19 WBC 14.88 H RBC 4.02 L Hgb 12.6 L Hct 36.2 L MCV 90 MCH 31.3 MCHC 34.8 RDW 12.9 Plt Count 252 MPV 10.0 Immature Gran % 0.5 Neutrophils % 83.5 Lymphocytes % 10.3 Monocytes % 5.6 Eosinophils % 0.0 Basophils % 0.1 Nucleated RBC % 0.0 Absolute Neutrophils 12.42 H Absolute Lymphocytes 1.53 Absolute Monocytes 0.83 H Absolute Eosinophils 0.00 Absolute Basophils 0.01 Sodium 138 Potassium 4.2 Chloride 102 Carbon Dioxide 27.3 Anion Gap 8.7 BUN 32 H Creatinine 1.3 Est GFR (CKD-EPI 2020) 57.29 Glucose 220 H Calcium 9.4 Preliminary micro results at discharge 09/25/24 09:43 Blood Culture - Preliminary Blood NO GROWTH 72 HOURS 09/25/24 09:30 Blood Culture - Preliminary Blood NO GROWTH 72 HOURS PFSH All Active Problems (Updated 09/26/24 @ 19:20 by Red Peoples MD) Pneumonia due to COVID-19 virus (Acute) History of alcohol abuse (Chronic 05/07/18) GCA (giant cell arteritis) (Chronic ~11/2022) [facility] [place] Actremra 01/2023; discontinued in favor of daily prednisone 7.5mg daily; switched to methotrexate 06/2024 Steroid-induced diabetes (Chronic ~09/2022) Medical History (Updated 09/26/24 @ 19:20 by Red Peoples MD) Nail dystrophy Onychomycosis Immunosuppressed status LT prednisone for GCA On prednisone therapy (~04/2022) Abnormal gait (~06/2022) Peripheral neuropathy + vestibular [place] [place] Elevated lipoprotein A level (~12/2021) Declines statin Hyperlipidemia (~07/2021) Recommend statin 07/2021; [employer] Transcribervashti Read obtained lipoprotein a, elevated--> cardiology recommends consider statin 01/2022 Family history of prostate cancer in father Also PGF Benign prostatic hyperplasia (05/13/18) RX Flomax Hypertension (05/07/18) Goal 135-145 (lower & he feels poor)--didn't tolerate Lisinopril Peripheral neuropathy (05/07/18) EtOH related; [facility] [place] & 2022 Diverticulosis (~08/2023) Cataracts, both eyes [place] 07/24/24 not visually significant Dizziness Anemia in CKD (chronic kidney disease) Anemia (~08/2022) Lightheadedness PMR (polymyalgia rheumatica) (~04/2022) COVID-19 (~08/2023) Impaired fasting glucose (05/07/18) Monitor annual A1Cs; +fam hx DMT2 Candidal paronychia Elevated serum creatinine Left scapholunate ligament tear Fracture of distal end of left radius (10/26/22) Immunization refused (~02/2022) 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 Seborrheic dermatitis of scalp Edema of lower extremity (05/07/18) Occurred x1, RX Furosemide and never reoccurred even off Furosemide Anxiety (05/07/18) GERD (gastroesophageal reflux disease) (05/07/18) Hepatomegaly (05/07/18) Resolved off EtOH Surgical History Tonsillectomy Appendectomy Family History Father , 73yo from metastatic prostate cancer Essential hypertension Heart disease Myocardial infarction Neoplasm Prostate Mother , early 70s diabetes complications Diabetes Paternal Grandfather , prostate cancer Neoplasm Prostate Social History Smoking/Tobacco Use Status: Former Tobacco Use Quit Date: 11/26/71 Smoking risk assessment performed?: Yes Alcohol Intake: current Alcohol Intake frequency: other Alcohol type: beer Drug use: Occasionally Substance use type: marijuana Household members: none Housing: other Number of Children: 3 Communication Needs: Corrective Lenses 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 Current gender identity: male What is your relationship status?: Panel score (0-1 are the most socially isolated patients): 0 What type of physical activity do you participate in: walking Duration: 15-30 minutes/day Frequency: 3-4 times per week Seatbelt use: always Drive intox or 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 class a truck driver: No Working smoke detector in home: Yes Fire extinguisher in home: Yes Carbon monox detector in home: Yes Do you feel safe at home: Yes Do you feel safe in your relationship?: Yes Time Spent with Patient Time Spent with Patient: 45-69 minutes Time was spent: preparing to see the patient(eg.review tests), obtaining and/or reviewing separately otained hiistory, ordering medications,tests, procedures, referring, communicating with other health family day carer, indepentently interpreting results, counseling the patient and care coordination
== END 2024-09-28 13:46 | disposition home or self-care (01) | DRG 177 ==
LOC: ER 09:07 → EDHOLD 13:24 → MS 09-26 14:19
PROVIDERS: Family Medicine; Admitting Provider Family Medicine; Emergency Provider Emergency Medicine; PCP Nurse Practitioner Adult Health; Visit Provider Family Medicine
DX: U07.1 COVID-19 (principal); J12.82 Pneumonia due to coronavirus disease 2019; Z59.01 Sheltered homelessness; D84.821 Immunodeficiency due to drugs; M31.6 Other giant cell arteritis; N18.31 Chronic kidney disease, stage 3a; K21.9 Gastro-esophageal reflux disease without esophagitis; E78.41 Elevated Lipoprotein(a); D63.1 Anemia in chronic kidney disease; I12.9 Hypertensive chronic kidney disease with stage 1 through stage 4 chronic kidney disease, or unspecified chronic kidney disease; F10.11 Alcohol abuse, in remission; R09.02 Hypoxemia; R53.1 Weakness; Z79.631 Long term (current) use of antimetabolite agent; Z79.52 Long term (current) use of systemic steroids; G62.1 Alcoholic polyneuropathy; N40.0 Benign prostatic hyperplasia without lower urinary tract symptoms; R26.89 Other abnormalities of gait and mobility; B35.1 Tinea unguium; T38.0X5A Adverse effect of glucocorticoids and synthetic analogues, initial encounter; E09.22 Drug or chemical induced diabetes mellitus with diabetic chronic kidney disease; F32.A Depression, unspecified
CPT/HCPCS: 00123; 36415; 80048; 80053; 82805; 84145; 85027; 87040; 87637; 94640; 96365; 96372; 96375; 99285; J1650; 71045; 81003; 83605; 83735; 84443; 85025; 99223; 99231; 99232; 99239; J0248; J1100; J1815; J3490; J7620; J8540

== ENCOUNTER 2024-09-30 08:41 | Emergency (ER) | payer MEDICARE, MEDICAID, SELFPAY ==
[2024-09-30] VITALS (25 sets, daily range): BP systolic 118–158; BP diastolic 42–84; PULSE 56–104; RESP 5–22; TEMP 36.1–36.7; O2SAT 91–99
--- NOTE | 2024-09-30 08:30 | RT.EKG_ITS ---
APPROVED REPORT Exam: Resting ECG Reason for Exam: sob Patient Location: E HR:91 bpm ECG Measurements Heart Rate 91 AXIS FL 144 P 49 QRSd 128 QRS -72 QT 378 T 4 QTc 465 Conclusion Sinus rhythm...normal P axis, V-rate 60- 99 RBBB and LAFB...QRSd >120mS, axis(-40,240) I have reviewed and interpreted ECG and agree with software generated interpretation.
--- OUTSIDE RECORDS SUMMARY | 2024-09-30 08:55 | XMS_ITS | Clinical Summary ---
Author Organization [facility] Address [address] [place] [id number] Care Team Providers Care Abalone Diver Name Role Phone Unknown, Provider MD Primary Care Provider Unava ilable Unknown, Provider MD Unavailable Unavailable Social History Tobacco Use Types Packs/Day Years [...] C Antibody Negative Negative 08/21/2022 10:26 EDT [facility] Blood VENOUS BLOOD / Unknown 08/18/2022 9:08 EDT 08/18/2022 18:19 EDT Provider Outr Resulting Lab CHEMISTRY & BLOOD GAS ORDERABLES [facility] [address] [place] [address] from Last 3 Months or Most Recently Relevant to Health Maintenance Care Teams Abalone Diver Relationship Specialty Start Date End Date Unknown, Provider, PCP - General 11/10/15 Unknown, Provider, 11/10/15
--- OUTSIDE RECORDS SUMMARY | 2024-09-30 08:55 | XMS_ITS | Referral Summary ---
Author Organization [facility] Address [address] [place] [address] Care Team Providers Care Steam Drier Tender Name Role Phone Unknown, Provider MD Primary [...] C Antibody Negative Negative 08/21/2022 10:26 EDT [facility] Blood VENOUS BLOOD / Unknown 08/18/2022 9:08 EDT 08/18/2022 18:19 EDT Provider Outr Resulting Lab CHEMISTRY & BLOOD GAS ORDERABLES [facility] [address] [place] [address] from Last 3 Months or Most Recently Relevant to Health Maintenance Care Teams Steam Drier Tender Relationship Specialty Start Date End Date Unknown, ProviderMD PCP - General 11/10/15 Unknown, MD Gavi 11/10/15
--- OUTSIDE RECORDS SUMMARY | 2024-09-30 08:56 | XMS_ITS | Encounter Summary ---
Author Organization [facility] [place] [address] Care Team Providers Care Coding Spec Name Role Phone MikeYesy Swenson MALACHI Primary Care Provider [phone]- [phone] Encounter Details Date Type Department Care Team (Late st Contact Info) Description 06/22/2023 [place] [id number] Ananya Payan DO [facility] [place] [address] Social History Tobacco Use Types Packs/Day Years [...] Taylor, [facility] Note: Judson Robe [...] hands documented in this encounter Care Teams Coding Spec Relationship Specialty Start Date End Date Yesy Nagy APRN [address] [facility] [address] [place] [address] PCP - General Geriatric Medicine 08/02/22 documented as of this encounter
--- OUTSIDE RECORDS SUMMARY | 2024-09-30 08:56 | XMS_ITS | Encounter Summary ---
Author Organization [facility] Address [address] [place] [address] Care Team Providers Care Asbestos Shingle Roofer Name Role Phone Unknown, Provider MD Primary Care Provider Unava ilable Unknown, Provider MD Unavailable Unavailable Encounter Details Date Type Department Care Team (Late st Contact Info) Description 02/06/2022 Lab Requisition [facility] Pathology & Laboratory Medicine - [address] [address] Outr Resulting Lab, Provider Social History Tobacco [...] 0.0 - 6.5 ng/mL 02/06/2022 18:58 EDT [facility] Blood VENOUS BLOOD / Unknown 02/06/2022 10:34 EDT 02/06/2022 17:03 EDT Narrative [facility] - 02/06/2022 18:58 EDT NOTE: Serum PSA concentration should not be interpreted as absolute evidence for the presence or absence of malignant disease. Assayed on Siemens ADVIA Clarisonicaur XPT using chemiluminescent technology.??Values obtained by using different assay methods cannot be used interchangeably. Provider Outr Resulting Lab CHEMISTRY & BLOOD GAS ORDERABLES [facility] [address] [place] [address] documented in this encounter Visit Diagnoses Not on filedocumented in this encounter Care Teams Asbestos Shingle Roofer Relationship Specialty Start Date End Date Unknown, Provider, PCP - General 11/10/15 Unknown, ProviderMD 11/10/15 documented as of this encounter
--- OUTSIDE RECORDS SUMMARY | 2024-09-30 08:56 | XMS_ITS | Encounter Summary ---
Author Organization [facility] Address [facility] [place] [address] Care Team Providers Care Handkerchief Maker Name Role Phone Yesy Nagy APRN Primary Care Provider [phone]- [phone] Encounter Details Date Type Department Care Team (Late st Contact Info) Description 06/29/2023 Telephone Dermatology at [facility] [address] [place] [phone] Rafa Rachel MD [facility] DR CARISSA BHAG[place] [address] Social History Tobacco Use Types Packs/Day Years [...] on filedocumented in this encounter Care Teams Handkerchief Maker Relationship Specialty Start Date End Date Yesy Nagy APRN [address] [place] [address] PCP - General Geriatric Medicine 08/02/22 documented as of this encounter
--- OUTSIDE RECORDS SUMMARY | 2024-09-30 08:56 | XMS_ITS | Encounter Summary ---
Author Organization [facility] Address [address] [place] [address] Care Team Providers Care Lath Hand Name Role Phone Unknown, Provider MD Primary Care Provider Unava ilable Unknown, Provider MD Unavailable Unavailable Encounter Details Date Type Department Care Team (Late st Contact Info) Description 08/18/2022 Lab Requisition [facility] Pathology & Laboratory Medicine - [address] [address] Outr Resulting Lab, Provider Social History Tobacco [...] 4th Generation Negative Negative 08/21/2022 10:20 EDT [facility] Comment:If acute HIV-1 infec tion is suspected in a high risk patient, submit plasma specimen for HIV-1 RNA quantitation test. Blood VENOUS BLOOD / Unknown 08/18/2022 9:08 EDT 08/18/2022 18:19 EDT Narrative [facility] - 08/21/2022 10:20 EDT Fourth Generation assay performed on the Siemens Linear Labsaur XPT. Provider Outr Resulting Lab IMMUNOLOGY A ND SEROLOGY ORDERABLES [facility] [address] [place] [address] documented in this encounter Visit Diagnoses Not on filedocumented in this encounter Care Teams Lath Hand Relationship Specialty Start Date End Date Unknown, ProviderMD PCP - General 11/10/15 Unknown, ProviderMD 11/10/15 documented as of this encounter
--- OUTSIDE RECORDS SUMMARY | 2024-09-30 08:56 | XMS_ITS | Encounter Summary ---
Author Organization [place] [address] Care Team Providers Care Mangle Roll Operator Name Role Phone Yesy Nagy APRN Primary Care Provider [phone]- [phone] Encounter Details Date Type Department Care Team (Late st Contact Info) Description 07/19/2023 [place]phone [place] [phone] Dayna Paez, RN Social History [...] 07/19/2023 3:59 PM EDT Copied from CRM #[id number]. Topic: Specialty Dept CRMs - Generic Call [...] on filedocumented in this encounter Care Teams Mangle Roll Operator Relationship Specialty Start Date End Date Yesy Nagy APRN [address] [facility] [place] [address] PCP - General Geriatric Medicine 08/02/22 documented as of this encounter
--- OUTSIDE RECORDS SUMMARY | 2024-09-30 08:56 | XMS_ITS | Encounter Summary ---
[place] [address] Care Team Providers Care Pharmacometrician Name Role Phone Yesy Nagy MALACHI Primary Care Provider Encounter Details Date Type Department Care Team (Latest Contact Info) Description 07/14/2024 12:55 PM EDT Laboratory Appointment Lab [address] [place] [address] GCA (giant cell arteritis); Neuropathy; Prediabetes Social [...] [facility] Note: Judson Patel Jr. Is hoping [...] cell arteritis) CRP, ACUTE INFLAMMATION Routine 07/14/20 11:53 AM EDT GCA (giant cell arteritis) [...] AM EDT Mika Quiroga MD URINE ORDERABLES [facility] [place] [address] * (ABNORMAL) PEP, Urine Random (07/14/2024 11:53 AM EDT) Albumin, Urine Electrophoresis 70 % total 07/15/2024 3:34 PM EDT [facility] Globulin, Random Urine 30 % total 07/15/2024 3:34 PM EDT [facility] M1 Band, Urine 07/15/2024 3:34 PM EDT [facility] Comment:There is no evidence of clonal free light chains in this patient's urine sample. Protein, Urine 23(H) 0 - 12 mg/dL 07/15/2024 3:34 PM EDT [facility] Urine URINE SPECIMEN / Unknown Non Blood Collection / Unknown 07/14/2024 11:53 AM EDT 07/14/2024 11:53 AM EDT Mika Quiroga MD URINE ORDERABLES Performing Organization Address City/[facility] Co de Phone Number [facility] [place] [address] * Protein, Serum Electrophoresis (07/14/2024 11:53 AM EDT) Blood VENOUS BLOOD SPECIMEN / Unknown Venipuncture / Unknown 07/14/2024 11:53 AM EDT 07/14/2024 11:53 AM EDT Mika Quiroga MD URINE ORDERABLES Performing Organization Address City/[facility]/ZIP Co de Phone Number [facility] [place] [address] * (ABNORMAL) PEP, Serum (07/14/2024 11:53 AM EDT) Protein, Total 6.6 6.1 - 8.0 g/dL 07/15/2024 3:23 PM EDT [facility] Albumin Electrophoresis 4.17 3.20 - 5.20 g/dL 07/15/2024 3:23 PM EDT [facility] Alpha 1 Globulin 0.17 0.10 - 0.30 g/dL 07/15/2024 3:23 PM EDT [facility] Alpha 2 Globulin 0.91(H) 0.40 - 0.90 g/dL 07/15/2024 3:23 PM EDT [facility] Beta Globulin 0.69 0.50 - 1.00 g/dL 07/15/2024 3:23 PM EDT [facility] Gamma Globulin 0.66 0.50 - 1.30 g/dL 07/15/2024 3:23 PM EDT [facility] M1 Band 07/15/2024 3:23 PM EDT [facility] Comment:None Detected Blood VENOUS BLOOD SPECIMEN / Unknown Venipuncture / Unknown 07/14/2024 11:53 AM EDT 07/14/2024 11:53 AM EDT Mika Quiroga MD URINE ORDERABLES [facility] [place] [address] * (ABNORMAL) Hemoglobin A1c (07/14/2024 11:53 AM EDT) Hemoglobin A1c 7.7(H) 4.3 - 5.6 % 07/14/2024 12:34 PM EDT [facility] Comment: Per ADA guidelines, without [...] red blood cell turnover may not be mortician supplies sales representative of glycemic control. Reference Interval: 4.3 - 5.6% 5.7 - 6.4%: Consistent with prediabetes >=6.5%: Consistent with diagnosis of diabetes mellitus Estimated Average Glucose 07/14/2024 12:34 PM EDT [facility] Comment:Not Calculated. Blood VENOUS BLOOD SPECIMEN / Unknown Venipuncture / Unknown 07/14/2024 11:53 AM EDT 07/14/2024 11:53 AM EDT Narrative [facility] - 07/14/2024 12:34 PM EDT Estimated average glucose (eAG) is calculated from the equation described in: Alejandro BRAGA, Dayana J, Jelly R, et al. ??Translating the A1C assay into estimated average glucose values. ??Diabetes Care 2008:31(8):0572-9343. Additional resources are available on the ADA website (diabetes.org). Mika Quiroga MD CHEMISTRY ORDERABLES Performing Organization Address City/[facility]/ZIP Co de Phone Number [facility] [place] [address] * (ABNORMAL) Vitamin B12 (07/14/2024 11:53 AM EDT) Vitamin B12 1,260(H) 232 - 1,245 pg/mL 07/14/2024 12:52 PM EDT [facility] Blood VENOUS BLOOD SPECIMEN / Unknown Venipuncture / Unknown 07/14/2024 11:53 AM EDT 07/14/2024 11:53 AM EDT Mika Quiroga MD CHEMISTRY ORDERABLES Performing Organization Address [facility] Co de Phone Number [facility] [place] [address] * (ABNORMAL) CRP, acute inflammation (07/14/2024 11:53 AM EDT) C-Reactive Protein 5.6(H) <=4.9 mg/L 07/14/2024 12:38 PM EDT [facility] Blood VENOUS BLOOD SPECIMEN / Unknown Venipuncture / Unknown 07/14/2024 11:53 AM EDT 07/14/2024 11:53 AM EDT Mika Quiroga MD CHEMISTRY ORDERABLES Performing Organization Address City/[facility]/ZIP Co de Phone Number [facility] [place] [address] * (ABNORMAL) Sedimentation rate (07/14/2024 11:53 AM EDT) Sedimentation Rate Automated 57(H) 3 - 46 mm/hr 07/14/2024 12:42 PM EDT [facility] Blood VENOUS BLOOD SPECIMEN / Unknown Venipuncture / Unknown 07/14/2024 11:53 AM EDT 07/14/2024 11:53 AM EDT Mika Quiroga MD HEMATOLOGY ORDERABLE S [facility] [place] [address] * (ABNORMAL) Comprehensive metabolic panel (07/14/2024 11:53 AM EDT) Glucose 199 65 - 199 mg/dL 07/14/2024 12:38 PM EDT [facility] Comment:Glucose Concentratio n >=200 mg/dL plus symptoms is consistent with Diabetes Mellitus. Blood Urea Nitrogen 18 10 - 20 mg/dL 07/14/2024 12:38 PM EDT [facility] Creatinine 1.22 0.80 - 1.50 mg/dL 07/14/2024 12:38 PM EDT [facility] Sodium 137 135 - 145 mMol/L 07/14/2024 12:38 PM EDT [facility] Potassium 4.5 3.5 - 5.0 mMol/L 07/14/2024 12:38 PM EDT [facility] Chloride 97(L) 98 - 107 mMol/L 07/14/2024 12:38 PM EDT [facility] Carbon Dioxide 24 22 - 31 mMol/L 07/14/2024 12:38 PM EDT [facility] Anion Gap 16(H) 5 - 15 mMol/L 07/14/2024 12:38 PM EDT [facility] Calcium 10.2 8.5 - 10.5 mg/dL 07/14/2024 12:38 PM EDT [facility] Protein, Total 7.1 6.1 - 8.0 g/dL 07/14/2024 12:38 PM EDT [facility] Albumin 4.2 3.2 - 5.2 g/dL 07/14/2024 12:38 PM EDT [facility] Aspartate Aminotransferase 13 <=39 unit/L 07/14/2024 12:38 PM EDT [facility] Alanine Aminotransferase 15 0 - 55 unit/L 07/14[facility]2024 12:[facility] Alkaline Phosphatase 71 40 - 130 unit/L 07/14/2024 12:38 PM EDT [facility] Bilirubin, Total 0.4 <=1.3 mg/dL 07/14/2024 12:38 PM [facility] Est Glomerular Filtration Rate - Male 62 mL/min/1. 73 m?? 07/14/2024 12:38 PM [facility] Comment: This patient's estimated GFR was [...] Fasting Status No 07/14/2024 12:38 PM EDT [facility] Blood VENOUS BLOOD SPECIMEN / Unknown Venipuncture / Unknown 07/14/2024 11:53 AM EDT 07/14/2024 11:53 AM EDT Mika Quiroga MD CHEMISTRY ORDERABLES [facility] [place] [address] * (ABNORMAL) CBC (with Diff) (07/14/2024 11:53 AM EDT) White Blood Cell 16.07(H) 4.00 - 9.50 x10(3)/mc L 07/14/2024 12:42 PM [facility] Red Blood Cell 4.42(L) 4.58 - 5.54 x10(6)/mc L 07/14/2024 12:42 PM [facility] Hemoglobin 13.7 13.7 - 16.5 g/dL 07/14/2024 12:42 PM [facility] Hematocrit 40.4(L) 40.5 - 48.5 % 07/14/2024 12:42 PM [facility] Mean Cell Volume 91.4 82.9 - 93.1 fL 07/14/2024 12:42 PM [facility] Mean Cell Hemoglobin 31.0 27.5 - 32.1 pg 07/14/2024 12:42 PM [facility] Mean Cell Hemoglobin Concentration 33.9 32.0 - 35.7 g/dL 07/14/2024 12:42 PM [facility] Platelet 256 145 - 357 x10(3)/mc L 07/14/2024 12:42 PM [facility] Mean Platelet Volume 9.8 7.6 - 12.9 fL 07/14/2024 12:42 PM [facility] RDW Standard Deviation 44.5 36.0 - 45.0 fL 07/14/2024 12:42 PM [facility] RDW coefficient of variation 13.2 11.4 - 13.8 % 07/14/2024 12:42 PM [facility] NRBC% auto 0.0 % 07/14/2024 12:42 PM [facility] NRBC Absolute 0.00 0.00 - 0.00 x10(3)/mc L 07/14/2024 12:42 PM [facility] Neutrophil % 83.2 % 07/14/2024 12:42 PM [facility] Neutrophil Absolute (ANC) - Automated 13.36(H) 1.70 - 6.10 x10(3)/mc L 07/14/2024 12:42 PM EDT [facility] Lymph % 10.8 % 07/14/2024 12:42 PM EDT [facility] Lymph Absolute 1.74 0.90 - 3.20 x10(3)/mc L 07/14/2024 12:42 PM EDT [facility] Monocyte % 4.2 % 07/14/2024 12:42 PM EDT [facility] Monocyte Absolute 0.68 0.30 - 0.90 x10(3)/mc L 07/14/2024 12:42 PM EDT [facility] Eos % 0.2 % 07/14/2024 12:42 PM EDT [facility] Eos Absolute 0.03 0.00 - 0.40 x10(3)/mc L 07/14/2024 12:42 PM EDT [facility] Basophil % 0.2 % 07/14/2024 12:42 PM EDT [facility] Baso Absolute 0.04 0.00 - 0.10 x10(3)/mc L 07/14/2024 12:42 PM EDT [facility] Immature Gran % 1.4 % 12:42 PM EDT [facility] Immature Gran Absolute 0.22(H) 0.00 - 0.04 x10(3)/mc L 07/14/2024 12:42 PM EDT [facility] Blood VENOUS BLOOD SPECIMEN / Unknown Venipuncture / Unknown 07/14/2024 11:53 AM EDT 07/14/2024 11:53 AM EDT Mika Quiroga MD HEMATOLOGY ORDERABLE S [facility] [place] [address] documented in this encounter Visit Diagnoses Diagnosis GCA (giant cell arteritis) Giant cell arteritis Neuropathy Mononeuritis of unspecified site Prediabetes Other abnormal glucose documented in this encounter Care Teams Pharmacometrician Relationship Specialty Start Date End Date Yesy Nagy APRN [address] [place] [address] PCP - General Geriatric Medicine 08/02/22 documented as of this encounter
--- OUTSIDE RECORDS SUMMARY | 2024-09-30 08:56 | XMS_ITS | Encounter Summary ---
Author Organization [facility] Address [address] [place] [address] Care Team Providers Care Field Contact Person Name Role Phone Unknown, Provider MD Primary Care Provider Unava ilable Unknown, Provider MD Unavailable Unavailable Encounter Details Date Type Department Care Team (Late st Contact Info) Description 01/04/2022 Lab Requisition [facility]ology & Laboratory Medicine - [address] [address] Outr Resulting Lab, Provider Social History Tobacco [...] 5.0 - 13.9 umol/L 01/06/2022 8:[address] [facility] Blood VENOUS BLOOD / Unknown 01/04/2022 7:52 EST 01/04/2022 21:30 EST Narrative [facility] - 01/06/2022 8:16 EST [...] CHEMISTRY & BLOOD GAS ORDERABLES [facility] [address] [place] [address] documented in this encounter Visit Diagnoses Not on filedocumented in this encounter Care Teams Field Contact Person Relationship Specialty Start Date End Date Unknown, ProviderMD PCP - General 11/10/15 Unknown, ProviderMD 11/10/15 documented as of this encounter
--- OUTSIDE RECORDS SUMMARY | 2024-09-30 08:56 | XMS_ITS | Encounter Summary ---
Author Organization [facility] Address [facility] [place] [address] Care Team Providers Care Assembler Corncob Pipes Name Role Phone Yesy Nagy MALACHI Primary Care Provider [phone] Reason for Visit * Reason Onset Date Comments Medication Refill 04/28/2024 Encounter Details Date Type Department Care Team (Late st Contact Info) Description 04/28/2024 [place]ill [place] [address] Ananya Payan, [facility] [place] [address] GCA (giant cell arteritis); PMR (polymyalgia rheumatica) [...] medication list. PHARMACY NAME:[id number] - [place], [place] - [address] [place] [address] PHARMACY PHONE: [phone] Would patient like script sent directly to pharmacy? (Yes or no) yes Would patient like to curing pickling packer paper script here at our office (Please [...] [facility] Note: Judson Robe Patel Jr. Is hoping [...] rheumatica documented in this encounter Care Teams Assembler Corncob Pipes Relationship Specialty Start Date End Date Yesy Nagy APRN [address] [place] [address] PCP - General Geriatric Medicine 08/02/22 documented as of this encounter
--- OUTSIDE RECORDS SUMMARY | 2024-09-30 08:56 | XMS_ITS | Clinical Summary ---
Author Organization Pending Sale To [facility] Address [facility] [place] [address] Care Team Providers Care Ice Cream Maker Name Role Phone Yesy Nagy MALACHI Primary Care Provider [phone] Allergies Active Allergy Reactions Criticality Noted Date [...] OIL ORAL) Take by mouth. Active Ascorbic Ltkg-Ypnyaqahi-Iku (Emergen-C) 1,000 mg Powder Effervescent in Packet Take by mouth. Active metFORMIN XR (Glucophage XR) 500 mg Tablet Sustained Release 24 hr Take 500 mg by mouth daily. 01/01/2023 Active hydrocortisone 2.5 % Cream APPLY TOPICALLY THREE TIMES A DAY NEEDED FOR SKIN IRRITATION/HEMMOR RHOID 01/01/2023 Active fluocinonide (LIDEX) 0.05 % CreamIndications:Experience Specialist deborah paronychia of finger, unspecified laterality Apply [...] Care Team Description 08/06/2024 Telephone [place] [address] Landy Monson RN 07/14/2024 12:55 PM EDT Laboratory Appointment Lab [address] [place] [address] GCA (giant cell arteritis); Neuropathy; Prediabetes 07/14/2024 10:30 AM EDT Office [place] [address] Obdulia Coleman MD GCA (giant cell arteritis); Neuropathy; Prediabetes 07/14/2024 [place] [address] Dayna Paez RN 07/14/2024 Travel from Last [...] - PCV) 2013 Covid-19 Vaccine (1 - 2022- season) 2024 Influenza (Flu) vaccine (1 o f 1 - Influenza standard series) 07/27/2024 Lipid Screening 05/31/2028 05/31/2023 Hepatitis C Screening Completed 01/23/2023 Goals Goal Patient Goal Type Associated Problems Recent Progress Patient-Stated? Author DH Self-Management Patient Facing Action Plan No Danica Taylor, [facility] Note: Judson Patel Jr. Is hoping [...] 11:53 AM EDT GCA (giant cell arteritis) LIPID PANEL (REFLEX DIRECT LDL) Routine 05/31/2023 [...] Quiroga MD URINE ORDERABLES Performing Organization Address City/State/[facility] Co de Phone Number [facility] [place] [address] * (ABNORMAL) PEP, Serum (07/14/2024 11:53 AM EDT) Protein, Total 6.6 6.1 - 8.0 g/dL 07/15/2024 3:23 PM EDT [facility] Albumin Electrophoresis 4.17 3.20 - 5.20 g/dL 07/15/2024 3:23 PM EDT [facility] Alpha 1 Globulin 0.17 0.10 - 0.30 g/dL 07/15/2024 3:23 PM EDT [facility] Alpha 2 Globulin 0.91(H) 0.40 - 0.90 g/dL 07/15/2024 3:23 PM EDT [facility] Beta Globulin 0.69 0.50 - 1.00 g/dL 07/15/2024 3:23 PM EDT [facility] Gamma Globulin 0.66 0.50 - 1.30 g/dL 07/15/2024 3:23 PM EDT [facility] M1 Band 07/15/2024 3:23 PM EDT [facility] Comment:None Detected Blood VENOUS BLOOD SPECIMEN / Unknown Venipuncture / Unknown 07/14/2024 11:53 AM EDT 07/14/2024 11:53 AM EDT Mika Quiroga MD URINE ORDERABLES Performing Organization Address City/[facility]/ZIP Co de Phone Number [facility] [place] [address] * Protein, Urine Electrophoresis (07/14/2024 11:53 AM EDT) Urine URINE SPECIMEN / Unknown Non Blood Collection / Unknown 07/14/2024 11:53 AM EDT 07/14/2024 11:53 AM EDT Mika Quiroga MD URINE ORDERABLES Performing Organization Address [facility] Co de Phone Number [facility] [place] [address] * (ABNORMAL) PEP, Urine Random (07/14/2024 11:53 AM EDT) Albumin, Urine Electrophoresis 70 % total 07/15/2024 3:34 PM EDT [facility] Globulin, Random Urine 30 % total 07/15/2024 3:34 PM EDT [facility] M1 Band, Urine 07/15/2024 3:34 PM EDT [facility] Comment:There is no evidence of clonal free light chains in this patient's urine sample. Protein, Urine 23(H) 0 - 12 mg/dL 07/15/2024 3:34 PM EDT [facility] Urine URINE SPECIMEN / Unknown Non Blood Collection / Unknown 07/14/2024 11:53 AM EDT 07/14/2024 11:53 AM EDT Mika Quiroga MD URINE ORDERABLES Performing Organization Address [facility] Co de Phone Number [facility] [place] [address] * (ABNORMAL) CRP, acute inflammation (07/14/2024 11:53 AM EDT) [facility] C-Reactive Protein 5.6(H) <=4.9 mg/L 07/14/2024 12:38 PM EDT [facility] Blood VENOUS BLOOD SPECIMEN / Unknown Venipuncture / Unknown 07/14/2024 11:53 AM EDT 07/14/2024 11:53 AM EDT Mika Quiroga MD CHEMISTRY ORDERABLES Performing Organization Address City/[facility]/ZIP Co de Phone Number [facility] [place] [address] * (ABNORMAL) Sedimentation rate (07/14/2024 11:53 AM EDT) [facility] Sedimentation Rate Automated 57(H) 3 - 46 mm/hr 07/14/2024 12:42 PM EDT [facility] Blood VENOUS BLOOD SPECIMEN / Unknown Venipuncture / Unknown 07/14/2024 11:53 AM EDT 07/14/2024 11:53 AM EDT Mika Quiroga MD HEMATOLOGY ORDERABLE S [facility] [place] [address] * (ABNORMAL) CBC (with Diff) (07/14/2024 11:53 AM EDT) [facility] White Blood Cell 16.07(H) 4.00 - 9.50 x10(3)/mc L 07/14/2024 12:42 PM EDT [facility] Red Blood Cell 4.42(L) 4.58 - 5.54 x10(6)/mc L 07/14/2024 12:42 PM EDT [facility] Hemoglobin 13.7 13.7 - 16.5 g/dL 07/14/2024 12:42 PM EDT [facility] Hematocrit 40.4(L) 40.5 - 48.5 % 07/14/2024 12:42 PM [facility] Mean Cell Volume 91.4 82.9 - 93.1 fL 07/14/2024 12:42 PM [facility] Mean Cell Hemoglobin 31.0 27.5 - 32.1 pg 07/14/2024 12:42 PM [facility] Mean Cell Hemoglobin Concentration 33.9 32.0 - 35.7 g/dL 07/14/2024 12:42 PM [facility] Platelet 256 145 - 357 x10(3)/mc L 07/14/2024 12:42 PM [facility] Mean Platelet Volume 9.8 7.6 - 12.9 fL 07/14/2024 12:42 PM [facility] RDW Standard Deviation 44.5 36.0 - 45.0 fL 07/14/2024 12:42 PM [facility] RDW coefficient of variation 13.2 11.4 - 13.8 % 07/14/2024 12:42 PM [facility] NRBC% auto 0.0 % 07/14/2024 12:42 PM [facility] NRBC Absolute 0.00 0.00 - 0.00 x10(3)/mc L 07/14/2024 12:42 PM [facility] Neutrophil % 83.2 % 07/14/2024 12:42 PM [facility] Neutrophil Absolute (ANC) - Automated 13.36(H) 1.70 - 6.10 x10(3)/mc L 07/14/2024 12:42 PM [facility] Lymph % 10.8 % 07/14/2024 12:42 PM [facility] Lymph Absolute 1.74 0.90 - 3.20 x10(3)/mc L 07/14/2024 12:42 PM [facility] Monocyte % 4.2 % 07/14/2024 12:42 PM [facility] Monocyte Absolute 0.68 0.30 - 0.90 x10(3)/mc L 07/14/2024 12:42 PM EDT [facility] Eos % 0.2 % 07/14/2024 12:42 PM EDT [facility] Eos Absolute 0.03 0.00 - 0.40 x10(3)/mc L 07/14/2024 12:42 PM EDT [facility] Basophil % 0.2 % 07/14/2024 12:42 PM EDT [facility] Baso Absolute 0.04 0.00 - 0.10 x10(3)/mc L 07/14/2024 12:42 PM EDT [facility] Immature Gran % 1.4 % 12:42 PM EDT [facility] Immature Gran Absolute 0.22(H) 0.00 - 0.04 x10(3)/mc L 07/14/2024 12:42 PM EDT [facility] Blood VENOUS BLOOD SPECIMEN / Unknown Venipuncture / Unknown 07/14/2024 11:53 AM EDT 07/14/2024 11:53 AM EDT Mika Quiroga MD HEMATOLOGY ORDERABLE S [facility] [place] [address] * (ABNORMAL) Hemoglobin A1c (07/14/2024 11:53 AM EDT) Hemoglobin A1c 7.7(H) 4.3 - 5.6 % 07/14/2024 12:34 PM EDT [facility] Comment: Per ADA guidelines, without [...] red blood cell turnover may not be sales representative gas service of glycemic control. Reference Interval: 4.3 - 5.6% 5.7 - 6.4%: Consistent with prediabetes >=6.5%: Consistent with diagnosis of diabetes mellitus Estimated Average Glucose 07/14/2024 12:34 PM EDT [facility] Comment:Not Calculated. Blood VENOUS BLOOD SPECIMEN / Unknown Venipuncture / Unknown 07/14/2024 11:53 AM EDT 07/14/2024 11:53 AM EDT Narrative [facility] - 07/14/2024 12:34 PM EDT Estimated average glucose (eAG) is calculated from the equation described in: Alejandro BRAGA, Dayana J, Jelly R, et al. ??Translating the A1C assay into estimated average glucose values. ??Diabetes Care 2008:31(8):2514-4191. Additional resources are available on the ADA website (diabetes.org). Mika Quiroga MD CHEMISTRY ORDERABLES [facility] [place] [address] * (ABNORMAL) Vitamin B12 (07/14/2024 11:53 AM EDT) Vitamin B12 1,260(H) 232 - 1,245 pg/mL 07/14/2024 12:52 PM EDT [facility] Blood VENOUS BLOOD SPECIMEN / Unknown Venipuncture / Unknown 07/14/2024 11:53 AM EDT 07/14/2024 11:53 AM EDT Mika Quiroga MD CHEMISTRY ORDERABLES [facility] [place] [place] [address] * (ABNORMAL) Comprehensive metabolic panel (07/14/2024 11:53 AM EDT) Glucose 199 65 - 199 mg/dL 07/14/2024 12:38 PM EDT [facility] Comment:Glucose Concentratio n >=200 mg/dL plus symptoms is consistent with Diabetes Mellitus. Blood Urea Nitrogen 18 10 - 20 mg/dL 07/14/2024 12:38 PM [facility] Creatinine 1.22 0.80 - 1.50 mg/dL 07/14/2024 12:38 PM [facility] Sodium 137 135 - 145 mMol/L 07/14/2024 12:38 PM [facility] Potassium 4.5 3.5 - 5.0 mMol/L 07/14/2024 12:38 PM [facility] Chloride 97(L) 98 - 107 mMol/L 07/14/2024 12:38 PM [facility] Carbon Dioxide 24 22 - 31 mMol/L 07/14/2024 12:38 PM [facility] Anion Gap 16(H) 5 - 15 mMol/L 07/14/2024 12:38 PM [facility] Calcium 10.2 8.5 - 10.5 mg/dL 07/14/2024 12:38 PM [facility] Protein, Total 7.1 6.1 - 8.0 g/dL 07/14/2024 12:38 PM [facility] Albumin 4.2 3.2 - 5.2 g/dL 07/14/2024 12:38 PM [facility] Aspartate Aminotransferase 13 <=39 unit/L 07/14/2024 12:38 PM [facility] Alanine Aminotransferase 15 0 - 55 unit/L 07/14/2024 12:38 PM [facility] Alkaline Phosphatase 71 40 - 130 unit/L 07/14/2024 12:38 PM [facility] Bilirubin, Total 0.4 <=1.3 mg/dL 07/14/2024 12:38 PM [facility] Est Glomerular Filtration Rate - Male 62 mL/min/1. 73 m?? 07/14/2024 12:38 PM [facility] Comment: This patient's estimated [...] Fasting Status No 07/14/2024 12:38 PM EDT [facility] Blood VENOUS BLOOD SPECIMEN / Unknown Venipuncture / Unknown 07/14/2024 11:53 AM EDT 07/14/2024 11:53 AM EDT Mika Quiroga MD CHEMISTRY ORDERABLES [facility] [place] [place] [address] * Lipid Panel (Reflex Direct LDL) (05/31/2023 10:18 AM EDT) [facility] Cholesterol, Total 239 mg/dL M [facility] Comment: Lower Risk: <200 mg/dL Average Risk: 200-239 mg/dL Higher Risk: >yk=486 mg/dL Triglyceride 191 mg/dL [facility] Comment: Average Risk/Lower Risk: <150 mg/dL Borderline High Risk: 150-199 mg/dL High Risk: 200-499 mg/dL Very High Risk: >so=990 mg/dL HDL Cholesterol 51 mg/dL [facility] Comment: Males: ?? Higher Risk: <40 mg/dL Females: ?? Higher Risk: <50 mg/dL LDL Cholesterol 150 mg/dL [facility] Comment: Lowest Risk: <100 mg/dL Lower Risk: 100-129 mg/dL Borderline High Risk: 130-159 mg/dL High Risk: 160-189 mg/dL Very High Risk: >mj=884 mg/dL Cholesterol/HDL Ratio 4.7 ratio [facility] Lipid Interpretation See Note [facility] Comment: Lipid management should be guided by a patient? s ASCVD risk, goals and preferences. ACC/AHA Guidelines recommend high intensity statin if clinical ASCVD or LDL greater than or equal to 190 mg/dL. http://iCare Technologyurl.com/NWW-MQE-Wslqmbasa Adults aged 40-75 with LDL 70-189 mg/dL should have their 10 year ASCVD risk estimated with the ACC/AHA ASCVD risk oil dipper http://tools.acc.org/TGJJT-Zyjx-Zkpqckpiv/ Statin should be discussed if risk greater [...] Lab Junior Bernard MD CHEMISTRY ORDERABLE S [facility] [place] [address] * Hepatitis C Antibody (01/23/2023 9:59 AM EST) Hepatitis C Antibody Negative Negative [facility] Blood 01/23/2023 9:59 AM EST 01/23/2023 10:08 AM EST Narrative Resulting Agency Comment Spec In Lab Linda Shaikh DO CHEMISTRY ORDERABL ES [facility] [place] [address] from Last 3 Months or Most Recently Relevant to Health Maintenance Care Teams Ice Cream Maker Relationship Specialty Start Date End Date Yesy Nagy APRN [facility] [place] [address] PCP - General Geriatric Medicine 08/02/22
--- OUTSIDE RECORDS SUMMARY | 2024-09-30 08:56 | XMS_ITS | Encounter Summary ---
Author Organization [facility] Address [address] [place] [address] Care Team Providers Care Conveyor Loader Name Role Phone Unknown, Provider MD Primary Care Provider Unava ilable Unknown, Provider MD Unavailable Unavailable Encounter Details Date Type Department Care Team (Late st Contact Info) Description 12/02/2021 Lab Requisition [facility] Pathology & Laboratory Medicine - [address] [address] Outr Resulting Lab, Provider Social History Tobacco [...] 0.0 - 6.5 ng/mL 12/02/2021 17:18 EST [facility] Blood VENOUS BLOOD / Unknown 12/02/2021 7:48 EST 12/02/2021 15:54 EST Narrative [facility] - 12/02/2021 17:18 EST NOTE: Serum PSA concentration should not be interpreted as absolute evidence for the presence or absence of malignant disease. Assayed on Siemens ADVIA Cartoon Doll Emporiumaur XPT using chemiluminescent technology.??Values obtained by using different assay methods cannot be used interchangeably. Provider Outr Resulting Lab CHEMISTRY & BLOOD GAS ORDERABLES [facility] [address] [place] [address] documented in this encounter Visit Diagnoses Not on filedocumented in this encounter Care Teams Conveyor Loader Relationship Specialty Start Date End Date Unknown, ProviderMD PCP - General 11/10/15 Unknown, ProviderMD 11/10/15 documented as of this encounter
--- OUTSIDE RECORDS SUMMARY | 2024-09-30 08:56 | XMS_ITS | Encounter Summary ---
[place] [address] Care Team Providers Care Weatherization Administrator Name Role Phone Yesy Nagy APRN Primary Care Provider [phone] Reason for Referral * Consultation (Routine) - Closed Specialty Diagnoses / Procedures Referred By Contac t Referred To Contact Rheumatology Diagnoses GCA (giant cell arteritis) PMR (polymyalgia rheumatica) Ananya Payan [facility] [place]AT[place] [address] Referral ID Status Reason Start Date Expiration Date V isits Requested Visits Authorized [id number] Closed Consult, Test & Treat 01/17/2024 07/15/2024 1 1 Encounter Details Date Type Department Care Team (Latest Contact Info) Description 01/17/2024 10:00 AM EST TH Visit (TeleHealth) [place] [address] Ananya Payan, [facility] [place]AT[place] [address] GCA (giant cell arteritis); PMR (polymyalgia rheumatica) [...] continue this visit. Total telephone visit time: 2005-1292 for a total 30 minutes. 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 - Report he has been doing well on 7mg daily of prednisone - no TORRES, pentecostalism pain, joint pain, morning stiffness, vision changes. - no fever, chills - reports he is moving to [place] to live with his sister in [facility]. Pt reports he grew up in [place]. ROS (positives in bold): Gen: no fevers, [...] to transfer care and establish with new Solution Developer in [place]. Referral sent to [facility] Rheumatology as that is the closest Solution Developer. Would consider,MTX, Orencia as steroid spearing agent. Will order inflammatory markers today. Plan - Continue Prednisone 7.5 mg daily - ordered CRP, ESR - Discuss DMARD steroid sparing options to start when you establish care in [place] - Referral sent to [facility] Rheumatology today as pt is moving to [place]. - follow up if needed. Patient was discussed with Dr. Luis Payan DO Rheumatology Fellow Pager: [phone] * Pravin Smith MD - 01/17/2024 10:00 AM EST Attending Addendum The patient had a TeleHealth visit with Dr. Ananya Payan, rheumatology fellow I. We reviewed the patient's interval history and Dr. Payan's management plan. I agree with Dr. Payan's assessment and plan. I did not directly interact with the patient. Pravin Smith MD Staff Solution Developer documented in this encounter Plan of Treatment Scheduled Referrals Name Type Priority Associated Diagnoses Order Schedule Referral to Rheumatology Outpatient Referral Routine GCA (giant cell arteritis) PMR (polymyalgia rheumatica) Ordered: 01/17/2024 documented as of this encounter Goals Goal Patient Goal Type Associated Problems Recent Progress Patient-Stated? Author DH Self-Management Patient Facing Action Plan No Danica Taylor, [facility] Note: Judson Patel JrRandy Is hoping to [...] rheumatica documented in this encounter Care Teams Weatherization Administrator Relationship Specialty Start Date End Date Yesy Nagy APRN [address] [place] [id number] PCP - General Geriatric Medicine 08/02/22 documented as of this encounter
--- OUTSIDE RECORDS SUMMARY | 2024-09-30 08:56 | XMS_ITS | Encounter Summary ---
Author Organization [facility] [place] [address] Care Team Providers Care Welder Tech Name Role Phone Yesy Nagy APRN Primary Care Provider Encounter Details Date Type Department Care Team (Late st Contact Info) Description 04/30/2024 Telephone [place] [address] Brittni Hamilton Social History Tobacco [...] Facing Action Plan No Danica Taylor, [facility] Note: Judson Patel Jr. Is hoping to decrease his prednisone dosage and keep pain levels at a minimum. He is hoping that Actemra will be able to keep him walking since before prednisone he had a hard time standing up and walking around. documented as of this encounter Visit Diagnoses Not on filedocumented in this encounter Care Teams Welder Tech Relationship Specialty Start Date End Date Yesy Nagy APRN [address] [place] [address] PCP - General Geriatric Medicine 08/02/22 documented as of this encounter
--- OUTSIDE RECORDS SUMMARY | 2024-09-30 08:56 | XMS_ITS | Encounter Summary ---
Author Organization [facility] Address [address] [place] [address] Care Team Providers Care Crm Coordinator Name Role Phone Unknown, Provider Primary Care Provider Unava ilable Unknown, Provider MD Unavailable Unavailable Encounter Details Date Type Department Care Team (Late st Contact Info) Description 05/14/2023 Lab Requisition [facility] Pathology & Laboratory Medicine - [address] [address] Outr Resulting Lab, Provider Social History Tobacco [...] ID No fungi isolated 06/12/2023 7:[address] [facility] Blood VENOUS BLOOD / Unknown 05/14/2023 12:10 EDT 05/14/2023 17:19 EDT Provider Outr Resulting Lab MICROBIOLOGY - GENERAL ORDERABLES [facility] [address] [place] [address] documented in this encounter Visit Diagnoses Not on filedocumented in this encounter Care Teams Crm Coordinator Relationship Specialty Start Date End Date Unknown, Provider, PCP - General 12/16/15 Unknown, Provider, 11/10/15 documented as of this encounter
--- OUTSIDE RECORDS SUMMARY | 2024-09-30 08:56 | XMS_ITS | Encounter Summary ---
Author Organization [facility] [place] [address] Care Team Providers Care Hydro Station Supervisor Name Role Phone Yesy Nagy APRN [...] on filedocumented in this encounter Care Teams Hydro Station Supervisor Relationship Specialty Start Date End Date Yesy Nagy APRN [address] [place] [address] PCP - General Geriatric Medicine 08/02/22 documented as of this encounter
--- OUTSIDE RECORDS SUMMARY | 2024-09-30 08:56 | XMS_ITS | Encounter Summary ---
Author Organization [facility] Address [facility] [place] [address] Care Team Providers Care Candle Wrapping Machine Operator Name Role Phone Yesy Nagy APRN Primary Care Provider [phone] Encounter Details Date Type Department Care Team (Latest Contact Info) Description 09/18/2023 4:00 PM EDT TH Visit (TeleHealth) [place] [address] Ananya Payan DO [facility] [address] [place] [address] GCA (giant cell arteritis) Social History Tobacco [...] by Ananya Payan DO or the rooming processing assistant as documented in their note. This [...] ESR CRP -We [facility] admission to review -Recommend DEXA scan for osteoporosis due to long-term steroid use -Follow-up in 3 months Patient was discussed with Dr. Andres Payan DO Rheumatology Fellow Pager: [phone] documented in this encounter Plan of Treatment Not on file documented as of this encounter Goals Goal Patient Goal Type Associated Problems Recent Progress Patient-Stated? Author DH Self-Management Patient Facing Action Plan No Danica Taylor, [facility] Note: Judson Robe Patel Jr. Is [...] arteritis documented in this encounter Care Teams Candle Wrapping Machine Operator Relationship Specialty Start Date End Date Yesy Nagy APRN [address] [place] [address] PCP - General Geriatric Medicine 08/02/22 documented as of this encounter
--- OUTSIDE RECORDS SUMMARY | 2024-09-30 08:56 | XMS_ITS | Encounter Summary ---
Author Organization [facility] Address [facility] [place] [address] Care Team Providers Care Sponsorship Manager Name Role Phone Yesy Nagy APRN Primary Care Provider [phone]- [phone] Reason for Referral * Consultation (Routine) - Closed Specialty Diagnoses / Procedures Referred By Contac t Referred To Contact Neurology Diagnoses GCA (giant cell arteritis) Obdulia Coleman MD [facility] [place] [address] [facility] Neu[facility] [address] [place] [address] Referral ID Status Reason Start Date Expiration Date V isits Requested Visits Authorized [id number] Closed Consult, Test & Treat 07/14/2024 07/14/2025 1 1 Encounter Details Date Type Department Care Team (Late st Contact Info) Description 07/14/2024 10:30 AM EDT Office [place] [phone] Obdulia Coleman MD [facility] [place] [address] GCA (giant cell arteritis); Neuropathy; Prediabetes Social [...] 04/2022 - He recently visited neurology at [facility]---->MRI of the brain unremarkable--->gait imbalance thought to be due to possible parkinson's disease, but pt did not have further follow up Plan -Referral [facility] neurolog[facility] provided -We will follow-up with vitamin B12 level, SPEP, UPEP Patient was discussed and seen with Dr. Kimber Coleman MD Rheumatology Fellow Pager # [phone] * Jennifer Soares CCMA - 07/14/2024 10:30 AM EDT Pt states there is no pain just difficulty in walking and is off balance * Miak Quiroga MD - 07/14/2024 10:30 AM EDT [...] steroid sparing agent. Mika Quiroga MD Staff Nurse Liaison documented in this encounter Plan of Treatment [...] (ABNORMAL) Hemoglobin A1c (07/14/2024 11:53 AM EDT) [facility] Signature Hemoglobin A1c 7.7(H) 4.3 - 5.6 % 07/14/2024 12:34 PM EDT [facility] Comment: Per ADA guidelines, without clear [...] red blood cell turnover may not be abrasives sales representative of glycemic control. Reference Interval: 4.3 - 5.6% 5.7 - 6.4%: Consistent with prediabetes >=6.5%: Consistent with diagnosis of diabetes mellitus Estimated Average Glucose 07/14/2024 12:34 PM EDT [facility] Comment:Not Calculated. Blood VENOUS BLOOD SPECIMEN / Unknown Venipuncture / Unknown 07/14/2024 11:53 AM EDT 07/14/2024 11:53 AM EDT Narrative [facility] - 07/14/2024 12:34 PM EDT Estimated average glucose (eAG) is calculated from the equation described in: Alejandro BRAGA, Dayana J, Jelly R, et al. ??Translating the A1C assay into estimated average glucose values. ??Diabetes Care 2008:31(8):0826-0812. Additional resources are available on the ADA website (diabetes.org). Mika Quiroga MD CHEMISTRY ORDERABLES Performing Organization Address City/[facility]/ZIP Co de Phone Number [facility] [place] [address] * (ABNORMAL) Vitamin B12 (07/14/2024 11:53 AM EDT) Vitamin B12 1,260(H) 232 - 1,245 pg/mL 07/14/2024 12:52 PM EDT [facility] Blood VENOUS BLOOD SPECIMEN / Unknown Venipuncture / Unknown 07/14/2024 11:53 AM EDT 07/14/2024 11:53 AM EDT Mika Quiroga MD CHEMISTRY ORDERABLES Performing Organization Address [facility] Co de Phone Number [facility] [place] [address] * (ABNORMAL) CRP, acute inflammation (07/14/2024 11:53 AM EDT) C-Reactive Protein 5.6(H) <=4.9 mg/L 07/14/2024 12:38 PM EDT [facility] Blood VENOUS BLOOD SPECIMEN / Unknown Venipuncture / Unknown 07/14/2024 11:53 AM EDT 07/14/2024 11:53 AM EDT Mika Quiroga MD CHEMISTRY ORDERABLES Performing Organization Address City/[facility]/ZIP Co de Phone Number [facility] [place] [address] * (ABNORMAL) Sedimentation rate (07/14/2024 11:53 AM EDT) Sedimentation Rate Automated 57(H) 3 - 46 mm/hr 07/14/2024 12:42 PM EDT [facility] Blood VENOUS BLOOD SPECIMEN / Unknown Venipuncture / Unknown 07/14/2024 11:53 AM EDT 07/14/2024 11:53 AM EDT Mika Quiroga MD HEMATOLOGY ORDERABLE S [facility] [place] [address] * (ABNORMAL) Comprehensive metabolic panel (07/14/2024 11:53 AM EDT) Pathologist [facility] Glucose 199 65 - 199 mg/dL 07/14/2024 12:38 PM EDT [facility] Comment:Glucose Concentratio n >=200 mg/dL plus symptoms is consistent with Diabetes Mellitus. Blood Urea Nitrogen 18 10 - 20 mg/dL 07/14/2024 12:38 PM EDT [facility] Creatinine 1.22 0.80 - 1.50 mg/dL 07/14/2024 12:38 PM EDT [facility] Sodium 137 135 - 145 mMol/L 07/14/2024 12:38 PM EDT [facility] Potassium 4.5 3.5 - 5.0 mMol/L 07/14/2024 12:38 PM EDT [facility] Chloride 97(L) 98 - 107 mMol/L 07/14/2024 12:38 PM EDT [facility] Carbon Dioxide 24 22 - 31 mMol/L 07/14/2024 12:38 PM EDT [facility] Anion Gap 16(H) 5 - 15 mMol/L 07/14/2024 12:38 PM EDT [facility] Calcium 10.2 8.5 - 10.5 mg/dL 07/14/2024 12:38 PM EDT [facility] Protein, Total 7.1 6.1 - 8.0 g/dL 07/14/2024 12:38 PM EDT [facility] Albumin 4.2 3.2 - 5.2 g/dL 07/14/2024 12:38 PM EDT [facility] Aspartate Aminotransferase 13 <=39 unit/L 07/14/2024 12:38 PM EDT [facility] Alanine Aminotransferase 15 0 - 55 unit/L 07/14/2024 12:38 PM EDT [facility] Alkaline Phosphatase 71 40 - 130 unit/L 07/14/2024 12:38 PM EDT [facility] Bilirubin, Total 0.4 <=1.3 mg/dL 07/14/2024 12:38 PM T [facility] Est Glomerular Filtration Rate - Male 62 mL/min/1. 73 m?? 07/14/2024 12:[address] [facility] Comment: This patient's estimated GFR [...] Fasting Status No 07/14/2024 12:38 PM EDT [facility] Blood VENOUS BLOOD SPECIMEN / Unknown Venipuncture / Unknown 07/14/2024 11:53 AM EDT 07/14/2024 11:53 AM EDT Mika Quiroga MD CHEMISTRY ORDERABLES [facility] [place] [address] * (ABNORMAL) CBC (with Diff) (07/14/2024 11:53 AM EDT) White Blood Cell 16.07(H) 4.00 - 9.50 x10(3)/mc L 07/14/2024 12:[address] [facility] Red Blood Cell 4.42(L) 4.58 - 5.54 x10(6)/mc L 07/14/2024 12:[address] [facility] Hemoglobin 13.7 13.7 - 16.5 g/dL 07/14/2024 12:[address] [facility] Hematocrit 40.4(L) 40.5 - 48.5 % 07/14/2024 12:[address] [facility] Mean Cell Volume 91.4 82.9 - 93.1 fL 07/14/2024 12:[address] [facility] Mean Cell Hemoglobin 31.0 27.5 - 32.1 pg 07/14/2024 12:[address] [facility] Mean Cell Hemoglobin Concentration 33.9 32.0 - 35.7 g/dL 07/14/2024 12:[address] [facility] Platelet 256 145 - 357 x10(3)/mc L 07/14/2024 12:[address] [facility] Mean Platelet Volume 9.8 7.6 - 12.9 fL 07/14/2024 12:[address] [facility] RDW Standard Deviation 44.5 36.0 - 45.0 fL 07/14/2024 12:[address] [facility] RDW coefficient of variation 13.2 11.4 - 13.8 % 07/14/2024 12:[address] [facility] NRBC% auto 0.0 % 07/14/2024 12:[address] [facility] NRBC Absolute 0.00 0.00 - 0.00 x10(3)/mc L 07/14/2024 12:[address] [facility] Neutrophil % 83.2 % 07/14/2024 12:[address] [facility] Neutrophil Absolute (ANC) - Automated 13.36(H) 1.70 - 6.10 x10(3)/mc L 07/14/2024 12:42 PM EDT [facility] Lymph % 10.8 % 07/14/2024 12:42 PM EDT [facility] Lymph Absolute 1.74 0.90 - 3.20 x10(3)/mc L 07/14/2024 12:42 PM EDT [facility] Monocyte % 4.2 % 07/14/2024 12:42 PM EDT [facility] Monocyte Absolute 0.68 0.30 - 0.90 x10(3)/mc L 07/14/2024 12:42 PM EDT [facility] Eos % 0.2 % 07/14/2024 12:42 PM EDT [facility] Eos Absolute 0.03 0.00 - 0.40 x10(3)/mc L 07/14/2024 12:42 PM EDT [facility] Basophil % 0.2 % 07/14/2024 12:42 PM EDT [facility] Baso Absolute 0.04 0.00 - 0.10 x10(3)/mc L 07/14/2024 12:42 PM EDT [facility] Immature Gran % 1.4 % 12:42 PM EDT [facility] Immature Gran Absolute 0.22(H) 0.00 - 0.04 x10(3)/mc L 07/14/2024 12:42 PM EDT [facility] Blood VENOUS BLOOD SPECIMEN / Unknown Venipuncture / Unknown 07/14/2024 11:53 AM EDT 07/14/2024 11:53 AM EDT Mika Quiroga MD HEMATOLOGY ORDERABLE S [facility] [place] [address] documented in this encounter Visit Diagnoses Diagnosis GCA (giant cell arteritis) Giant cell arteritis Neuropathy Mononeuritis of unspecified site Prediabetes Other abnormal glucose documented in this encounter Care Teams Sponsorship Manager Relationship Specialty Start Date End Date Yesy Nagy APRN [address] [place] [address] PCP - General Geriatric Medicine 08/02/22 documented as of this encounter
--- OUTSIDE RECORDS SUMMARY | 2024-09-30 08:56 | XMS_ITS | Encounter Summary ---
Author Organization [facility] [place] [address] Care Team Providers Care University Tutor Name Role Phone Yesy Nagy APRN Primary Care Provider +- [phone] Reason for Visit * Reason Onset Date Comments Triage 09/10/2023 Encounter Details Date Type Department Care Team (Late st Contact Info) Description 09/10/2023 Telephone [place] [phone] Dia Rosario RN Triage Social History Tobacco [...] other day that crept up from his faith over the top of his head. Pt [...] - 09/10/2023 9:59 AM EDT Copied from [facility] #[id number]. Topic: Specialty Dept CRMs - Triage >> [...] Taylor, [facility] Note: Judson Nagel Jorge Cises. Is hoping to decrease his prednisone dosage and keep pain levels at a minimum. He is hoping that Actemra will be able to keep him walking since before prednisone he had a hard time standing up and walking around. documented as of this encounter Visit Diagnoses Not on filedocumented in this encounter Care Teams University Tutor Relationship Specialty Start Date End Date Yesy Nagy APRN [address] [place] [address] PCP - General Geriatric Medicine 08/02/22 documented as of this encounter
--- OUTSIDE RECORDS SUMMARY | 2024-09-30 08:56 | XMS_ITS | Data Portability ---
Author Organization [place] - [facility] [employer], MAIN OFFICE Address [address] [place] [phone] Assessment Encounter Date Assessment Date Assessment LastModified [...] recorded. Lab lipoprotein (A), serum 2021 022 [facility] (Registration ), [address] [place] [address] Dr, [place], [address], 2 05:00:50 homocystein e, serum or plasma 2021 [facility] (Registration ), [address] [place] [address] Dr [facility] [place], [address], 2 05:00:50 magnesium, serum or plasma 2021 [facility] (Registration ), [address] [place] [address] Dr [facility] [place], [address], 2 05:00:50 electrolyte panel, serum 2021 [facility] (Registration ), [address] [place] [address] Dr [facility] [place], [address], 2 05:00:50 vitamin D, 25-hydroxy, total, serum 2021 022 [facility] (Registration ), [address] [place] [address] [place], [address], 2 05:00:50 vitamin B12 + folate, serum or blood 2021 022 [facility] (Registration ), [address] [place] [address] [place], [address], 2 05:00:50 CBC w/ diff 2021 022 [facility] (Registration ), [address] [place] [address] [place], [address], 2 05:00:50 iron + TIBC + ferritin, serum 2021 022 [facility] (Registration ), [address] [place] [address] [place] [facility] [place], [address], 2 05:00:50 testosteron e, free + total, w/ shbg, serum 2021 022 [facility] (Registration ), [address] [place] [address] Dr, [place], [address], 05:01:12 dhea-sulfat e, serum 2021 022 [facility] (Registration ), [address] [place] [address] [place], [address], 2 05:01:12 estrogen, total, serum 2021 022 [facility] (Registration ), [address] [place] [address] [place], [address], 05:01:12 Referral None recorded. Procedures None recorded. [...] pro-omega 1000mg-1 cap 2xday or another by [employer] 4. NEXT VISIT- bring bag of vitamins go over labwork next visit magnesium taurate 1 cap 2xday ther-biotic 1 cap 2xday Coq10 1 cap/day [place] 40 drops 3xday Not available 12/21/2021 12:39:51 01/11/2022 8831 Decreased Male Libido: Care Instructions Not available 01/20/2022 14:41:35 high cholesterol : care instructions kknight Not available 01/20/2022 14:41:35 1 pure genomics b complex 1 cap/day 2.Do not take citruline products right now- 3. Hormone testing -at [facility]- to see if testosterone is high or [...] Address Organization Details Recorded Time Hypertensive disorder 75885679 Active 2021 Nathalie Read [address], [address], [facility] 2 11:49:13 Neuropathy 402470490 Active 2021 Nathalie Davidanthony [address], [address], [facility] 2 11:49:38 Hyperlipidemia 24806336 Active 2021 Nathalie Read ND [address] [place] [address], [phone], [facility] 2 11:49:50 Family history of Cardiovascular disease 512230265 Active 2021 Nathalie RaedKERRI [address] [place] [address], [address], [facility] 2 10:51:12 Fatigue 51222464 Active 2021 Nathalie DavidanthonyKERRI [address] [place] [address], [address], [facility] 2 10:51:13 Vitamin D deficiency 50064331 Active 2021 Nathalie DavidanthonyKERRI [address] [place] [address], [address], [facility] 2 10:51:16 Benign prostatic hyperplasia 011564661 Active 2021 Nathalie Read ND [address] [place] [address], [address], [facility] 2 15:02:37 Problem Notes None recorded. Procedures Surgical History Date Name Laterality Status Provider Name and Address Organization Details Recorded Time 11/26/18 54 Removal of tonsils completed Nathalie Read ND [address] [place] [phone], [facility] 12/21/2021 11:56:41 11/26/18 53 Appendectomy completed Nathalie Read ND [address] [place] [address], [facility] 12/21/2021 11:56:11 Imaging Results None recorded. [...] Address Organization Details Last Updated DateTime 2 79771.6 7 g 23.5 kg/m2 168.91 cm 69.97 /min 96.98 % 96.98 % 138 mm[Hg] 60 mm[Hg] Nathalie Read ND [address] [place] [address], [phone], [facility] 2 11:48:04 Date Recorded Body height Systolic blood pressure Diastolic blood pressure Provider Name and Address Organization Details Last Updated DateTime 03/21/2022 168.91 cm 138 mm[Hg] 66 mm[Hg] Nathalie Read ND [address] [place] [address], [phone], [facility] 03/21/2022 15:04:52 Social History [...] Than N Hypothyroidism N Lung Disease N COPD N Depression N Defects or Inherited Disease N Developmental [...] Code 8733 Nathalie Read ND MAIN OFFICE [address] [place] [address] 12/21/2021 11:36:00 01/03/2022 11:56:15 Family history of Cardiovascular disease 935095151 Z82.49 Fatigue 58029768 R53.83 Vitamin D deficiency 347 [address]359 E55.9 Hypertensive disorder 38 665400 I10 Neuropathy 087344898 G62 .9 8831 Nathalie Read ND MAIN OFFICE [address] [place] [address] 01/11/2022 13:30:54 01/20/2022 14:41:50 Reduced libido 2335555 R68.82 Hyperlipidemia 62567704 E78.5 Vitamin D deficiency 347 50046 E55.9 Hypertensive disorder 38 405275 I10 9010 Nathalie Read ND MAIN OFFICE [address] [place] [address] 03/21/2022 14:38:41 04/06/2022 10:08:27 Benign prostatic hyperplasia 559949926 N40.0 Hyperlipidemia 48051010 E78.5 Health Concerns Section Related Observation LastModified by Organization Detai ls LastModified Time None Recorded Concern Status LastModified by Organization Details LastModified Time None Recorded Advance Directives Directive None Recorded Payers Encounter Date Sequence Insurance Name Policy Number Policy Rivera Covered Member ID Rivera Member ID Guarantor Name 12/21/2021 1 [facility] (MEDICAID) Judson Patel [id number] Judson Patel 01/11/2022 1 [facility] (MEDICAID) Judson Patel [id number] Judson Patel 03/21/2022 1 [facility] (MEDICAID) Judson Patel [id number] Judson Patel Notes Date Note Type Note [...] for many years- Nathalie Read ND [address] [facility], [place], [address], [facility] - [facility] 01/03/2022 11:03:14 01/11/2022 text/html HPI [...] what to discard. Nathalie Read ND [address] [facility], [place], [address], [facility] - [facility] 01/20/2022 14:41:41 03/21/2022 text/html HPI Notes: 130/6 6 amlopidine seems to be working well- below- he started niacin- and he gets a lot of itching- with it- but itching comes days later- reviewed plan with baby askipirn and extra water Nathalie Read ND [address] [facility], [place], [address], [facility] - [facility] 03/21/2022 15:05:24
--- OUTSIDE RECORDS SUMMARY | 2024-09-30 08:56 | XMS_ITS | Encounter Summary ---
[place] [address] Care Team Providers Care Cad Designer Drafter Name Role Phone Yesy Nagy APRN Primary Care Provider Encounter Details Date Type Department Care Team (Late st Contact Info) Description 07/14/2024 [place] [address] Dayna Paez RN Social History [...] - 07/14/2024 1:09 PM EDT Copied from [facility] #[id number]. Topic: Specialty Dept CRMs - Generic Call >> Jul 14, 2024 12:59 PM Mirtha Chavez wrote: Specialist: Rheumatology Relationship (if other than patient-full name): Shaunna [facility] Reason for Call: Shaunna states they received 4 prescriptions written by Obdulia Coleman MD and that this provider is not covered by [place] Medicaid, so they will need a different provider to put on theprescriptions. documented in this encounter Plan of Treatment Not on file documented as of this encounter Goals Goal Patient Goal Type Associated Problems Recent Progress Patient-Stated? Author DH Self-Management Patient Facing Action Plan No Danica Taylor, [facility] Note: Judson Robe Patel Jr. Is hoping to decrease his prednisone dosage and keep pain levels at a minimum. He is hoping that Actemra will be able to keep him walking since before prednisone he had a hard time standing up and walking around. documented as of this encounter Visit Diagnoses Not on filedocumented in this encounter Care Teams Cad Designer Drafter Relationship Specialty Start Date End Date Yesy Nagy APRN [address] [place] [address] PCP - General Geriatric Medicine 08/02/22 documented as of this encounter
--- OUTSIDE RECORDS SUMMARY | 2024-09-30 08:56 | XMS_ITS | Encounter Summary ---
Author Organization [facility] Address [address] [place] [address] Care Team Providers Care Religion Professor Name Role Phone Unknown, Provider Primary Care Provider Unava ilable Unknown, Provider MD Unavailable Unavailable Encounter Details Date Type Department Care Team (Late st Contact Info) Description 05/14/2023 Lab Requisition [facility] Pathology & Laboratory Medicine - [address] [address] Outr Resulting Lab, Provider Social History Tobacco [...] ID No fungi isolated 06/12/2023 7:46 EDT [facility] Blood VENOUS BLOOD / Unknown 05/14/2023 12:20 EDT 05/14/2023 17:19 EDT Provider Outr Resulting Lab MICROBIOLOGY - GENERAL ORDERABLES [facility] [address] [place] [address] documented in this encounter Visit Diagnoses Not on filedocumented in this encounter Care Teams Religion Professor Relationship Specialty Start Date End Date Unknown, Provider, PCP - General 12/16/15 Unknown, Provider, 11/10/15 documented as of this encounter
--- OUTSIDE RECORDS SUMMARY | 2024-09-30 08:56 | XMS_ITS | Encounter Summary ---
[place] [address] Care Team Providers Care Software Project Lead Name Role Phone Yesy Nagy APRN Primary Care Provider Encounter Details Date Type Department Care Team (Late st Contact Info) Description 07/04/2023 [place] [address] Landy Monson RN Social History [...] - 07/04/2023 2:45 PM EDT Copied from [facility] #[id number]. Topic: Specialty Dept CRMs - Generic Call [...] Action Plan No Danica Taylor, [facility] Note: Judson Robe Patel Jr. Is hoping to decrease his prednisone dosage and keep pain levels at a minimum. He is hoping that Actemra will be able to keep him walking since before prednisone he had a hard time standing up and walking around. documented as of this encounter Visit Diagnoses Not on filedocumented in this encounter Care Teams Software Project Lead Relationship Specialty Start Date End Date Yesy Nagy APRN [address] [place] [address] PCP - General Geriatric Medicine 08/02/22 documented as of this encounter
--- OUTSIDE RECORDS SUMMARY | 2024-09-30 08:56 | XMS_ITS | Encounter Summary ---
Author Organization Pending Sale To [facility] Address [facility] [facility] [place] [address] Care Team Providers Care U.[place]. Senator Name Role Phone Yesy Nagy APRN Primary Care Provider [phone]- [phone] Reason for Visit * Reason Onset Date Comments Medication Refill 05/27/2024 Encounter Details Date Type Department Care Team (Late st Contact Info) Description 05/27/2024 Refill Rheumatology at [facility] [place] [address] Ananya Payan DO [facility] [place] [address] GCA (giant cell arteritis); PMR (polymyalgia rheumatica) [...] in medication list. PHARMACY NAME:[facility] [place], [place] - [address] [place] [address] P: [phone] PHARMACY PHONE: [phone] Would patient like script sent directly to pharmacy? (Yes or no) yes Would patient like to steel pickler paper script here at our office (Please put yes or no) no Would patient like paper script mailed to home address (Please put yes or no) no Patient will be out of medication tomorrow and would like to steel pickler Caller/Patient aware of 1-2 business day process. [...] rheumatica documented in this encounter Care Teams U.[place]. Senator Relationship Specialty Start Date End Date Yesy Nagy APRN [address] [place] [address] PCP - General Geriatric Medicine 08/02/22 documented as of this encounter
--- OUTSIDE RECORDS SUMMARY | 2024-09-30 08:56 | XMS_ITS | Encounter Summary ---
Author Organization [facility] Address [facility] [place] [address] Care Team Providers Care Network Architect Manager Name Role Phone Yesy Nagy APRN Primary Care Provider [phone] Encounter Details Date Type Department Care Team (Late st Contact Info) Description 07/19/2023 Telephone [place] [id number] Ananya Payan DO [facility] [place] [address] Social History Tobacco Use Types Packs/Day Years [...] Taylor, [facility] Note: Judson Patel Jr. Is hoping to decrease his prednisone dosage and keep pain levels at a minimum. He is hoping that Actemra will be able to keep him walking since before prednisone he had a hard time standing up and walking around. documented as of this encounter Visit Diagnoses Not on filedocumented in this encounter Care Teams Network Architect Manager Relationship Specialty Start Date End Date Yesy Nagy APRN [address] [place] [address] PCP - General Geriatric Medicine 08/02/22 documented as of this encounter
--- OUTSIDE RECORDS SUMMARY | 2024-09-30 08:56 | XMS_ITS | Encounter Summary ---
Author Organization [facility] Address [address] [place] [address] Care Team Providers Care Club Steward Name Role Phone Unknown, Provider MD Primary Care Provider Unava ilable Unknown, Provider MD Unavailable Unavailable Encounter Details Date Type Department Care Team (Late st Contact Info) Description 08/18/2022 Lab Requisition [facility] Pathology & Laboratory Medicine - [facility] [address] [place] [address] Outr Resulting Lab, Provider Social History Tobacco [...] Note mIU/mL 08/21/2022 9:39 EDT [facility] Comment: Reference Range for Hep B Surface Ab, Quant: Positive: >= 10.0 mIU/mL Negative: ??< 10.0 mIU/mL Patient is presumed to not be immune to infection with Hepatitis B Virus. Hep B Surface Ab, Qualitative Negative See Note 08/21/2022 9:39 EDT [facility] Comment: Reference Range for Hep B Surface Ab, Qual: Unvaccinated: ??Negative Vaccinated: ??Positive Blood VENOUS BLOOD / Unknown 08/18/2022 9:08 EDT 08/18/2022 18:19 EDT Provider Outr Resulting Lab CHEMISTRY & BLOOD GAS ORDERABLES Performing Organization Address [facility] Co de Phone Number [facility] [address] [place] [address] * HEPATITIS B CORE ANTIBODY (TOTAL) (08/18/2022 9:08 EDT) Hepatitis B Core Ab, Total Negative Negative 08/21/2022 10:23 EDT [facility] Blood VENOUS BLOOD / Unknown 08/18/2022 9:08 EDT 08/18/2022 18:19 EDT Provider Outr Resulting Lab CHEMISTRY & BLOOD GAS ORDERABLES Performing Organization Address [facility] Co de Phone Number [facility] [address] [place] [phone] * HEPATITIS B SURFACE ANTIGEN (08/18/2022 9:08 EDT) Hep B Surface Ag Negative Negative 08/21/2022 9:36 EDT [facility] Blood VENOUS BLOOD / Unknown 08/18/2022 9:08 EDT 08/18/2022 18:19 EDT Provider Outr Resulting Lab CHEMISTRY & BLOOD GAS ORDERABLES Performing Organization Address [facility] Co de Phone Number [facility] [address] [place] [address] * HEPATITIS C AB W REFLEX TO HCV RNA BY PCR (08/18/2022 9:08 EDT) Hep C Antibody Negative Negative 08/21/2022 10:26 EDT [facility] Blood VENOUS BLOOD / Unknown 08/18/2022 9:08 EDT 08/18/2022 18:19 EDT Provider Outr Resulting Lab CHEMISTRY & BLOOD GAS ORDERABLES Performing Organization Address City/State/[facility] Co de Phone Number [facility] [address] [place] [address] documented in this encounter Visit Diagnoses Not on filedocumented in this encounter Care Teams Club Steward Relationship Specialty Start Date End Date Unknown, Provider, PCP - General 11/10/15 Unknown, ProviderMD 11/10/15 documented as of this encounter
--- OUTSIDE RECORDS SUMMARY | 2024-09-30 08:56 | XMS_ITS | Encounter Summary ---
Author Organization [facility] Address [facility] [place] [address] Care Team Providers Care Pacu Nurse Name Role Phone Yesy Nagy APRN Primary Care Provider [phone] Encounter Details Date Type Department Care Team (Late st Contact Info) Description 01/04/2024 Telephone [place] [address] Landy Monson RN Social History [...] doing well. He has permanently relocated to [place]. I informed him that it would be [...] 5 mg Prednisone and started to have TORRES,religious mild pain, so increased back to 7 mg daily. This is much better. States he has good days/bad days. Visiting sister in [place] currently. Balance not good and motor skills [...] away). Denied eye symptoms. Denied jaw claudication. Taoist pain now(when 5 mg was tender) but not now. Pt denied trouble chewing and no blurry vision at this time. Patient denied joint pain.Nothing red,warm nor swollen. Denied f/c/n/v/d and has been eating healthy, and not sick. No cold symptoms. Has been seeing his sister in [place] Asked about if studies available and maybe more medications available. Anxious to know if new things, and want to talk to Dr Schuyler DO. * Telephone Encounter - Landy Monson RN - 01/04/2024 1:25 PM EST Copied from [facility] #[id number]. Topic: Specialty Dept CRMs - Triage >> [...] on filedocumented in this encounter Care Teams Pacu Nurse Relationship Specialty Start Date End Date Yesy Nagy APRN [address] [place] [address] PCP - General Geriatric Medicine 08/02/22 documented as of this encounter
--- OUTSIDE RECORDS SUMMARY | 2024-09-30 08:56 | XMS_ITS | Encounter Summary ---
Author Organization [facility] Address [address] [place] [address] Care Team Providers Care Collar Pointer Name Role Phone Unknown, Provider MD Primary Care Provider Unava ilable Unknown, Provider MD Unavailable Unavailable Encounter Details Date Type Department Care Team (Late st Contact Info) Description 12/24/2020 Lab Requisition [facility] Pathology & Laboratory Medicine - [address] [address] Outr Resulting Lab, Provider Social History Tobacco [...] 0.0 - 6.5 ng/mL 12/24/2020 22:11 EST [facility] Blood VENOUS BLOOD / Unknown 12/24/2020 12:05 EST 12/24/2020 21:03 EST Narrative [facility] - 12/24/2020 22:11 EST NOTE: Serum PSA concentration should not be interpreted as absolute evidence for the presence or absence of malignant disease. Assayed on Siemens [employer] XPT using chemiluminescent technology.??Values obtained by using different assay methods cannot be used interchangeably. Provider Outr Resulting Lab CHEMISTRY & BLOOD GAS ORDERABLES [facility] [address] [place] [address] documented in this encounter Visit Diagnoses Not on filedocumented in this encounter Care Teams Collar Pointer Relationship Specialty Start Date End Date Unknown, ProviderMD PCP - General 11/10/15 Unknown, ProviderMD 11/10/15 documented as of this encounter
--- OUTSIDE RECORDS SUMMARY | 2024-09-30 08:56 | XMS_ITS | Encounter Summary ---
Author Organization [facility] Address [facility] [place] [address] Care Team Providers Care Blow Torch Burner Name Role Phone Yesy Nagy APRN Primary Care Provider [phone] Reason for Visit * Reason Onset Date Comments Questions 09/14/2023 Encounter Details Date Type Department Care Team (Late st Contact Info) Description 09/14/2023 [place] [phone] Dia Rosario RN Questions Social History Tobacco [...] RN looked at telephone note from Dr. Paayn dated 07/19/23 and per that note the [...] - 09/14/2023 11:54 AM EDT Copied from [facility] #[id number]. Topic: Specialty Dept CRMs - Triage >> [...] Taylor, [facility] Note: Judson Robe Patel Jr. Is hoping to decrease his prednisone dosage and keep pain levels at a minimum. He is hoping that Actemra will be able to keep him walking since before prednisone he had a hard time standing up and walking around. documented as of this encounter Visit Diagnoses Not on filedocumented in this encounter Care Teams Blow Torch Burner Relationship Specialty Start Date End Date Yesy Nagy APRN [address] [place] [address] PCP - General Geriatric Medicine 08/02/22 documented as of this encounter
--- OUTSIDE RECORDS SUMMARY | 2024-09-30 08:56 | XMS_ITS | Encounter Summary ---
Author Organization [facility] Address [facility] [place] [address] Care Team Providers Care Secretary To Board Of Commissioners Name Role Phone Yesy Nagy APRN Primary Care Provider [phone] Reason for Visit * Reason Comments Medication Refill Encounter Details Date Type Department Care Team (Late st Contact Info) Description 04/22/2024 [place] [phone] Thony Dee MD [facility] [place] [address] Social History Tobacco Use Types Packs/Day Years [...] on filedocumented in this encounter Care Teams Secretary To Board Of Commissioners Relationship Specialty Start Date End Date Yesy Nagy APRN [address] [place] [address] PCP - General Geriatric Medicine 08/02/22 documented as of this encounter
--- OUTSIDE RECORDS SUMMARY | 2024-09-30 08:56 | XMS_ITS | Encounter Summary ---
Author Organization [facility] Address [facility] [place] [address] Care Team Providers Care Manager Report Name Role Phone Yesy Nagy APRN Primary Care Provider [phone] Encounter Details Date Type Department Care Team (Late st Contact Info) Description 08/06/2024 Telephone [place] [address] Landy Monson RN Social History [...] - 08/06/2024 5:36 PM EDT Copied from [facility] #[id number]. Topic: Specialty Dept CRMs - Generic Call >> Aug 06, 2024 11:15 AM February wrote: Specialist: Ananya Payan, DO Relationship (if other than patient-full name): Self Reason for Call: Patient states that he received a call from the office and he is returning it Mailbox is full-not able to leave a message. Send note to have pathology secretary/transcriptionist call patient. Chart check- Dear Mr. Patel, We have tried to reach you regarding a referral received in our office. If you would still like to set up an appointment in the Neurology Department we would be happy to assist you. We can be reached at [phone], M-F between the hours of 8am-5pm. documented in this encounter Plan of Treatment Not on file documented as of this encounter Goals Goal Patient Goal Type Associated Problems Recent Progress Patient-Stated? Author DH Self-Management Patient Facing Action Plan No Danica Taylor, [facility] Note: Judson Nagel Jorge Funk Is hoping to decrease his prednisone dosage and keep pain levels at a minimum. He is hoping that Actemra will be able to keep him walking since before prednisone he had a hard time standing up and walking around. documented as of this encounter Visit Diagnoses Not on filedocumented in this encounter Care Teams Manager Report Relationship Specialty Start Date End Date Yesy Nagy APRN [address] [place] [address] PCP - General Geriatric Medicine 08/02/22 documented as of this encounter
--- OUTSIDE RECORDS SUMMARY | 2024-09-30 08:56 | XMS_ITS | Encounter Summary ---
Author Organization [facility] Address [address] [place] [address] Care Team Providers Care Sash Repairer Name Role Phone Unknown, Provider MD Primary Care Provider Unava ilable Unknown, Provider MD Unavailable Unavailable Encounter Details Date Type Department Care Team (Late st Contact Info) Description 08/19/2022 Lab Requisition [facility] Pathology & Laboratory Medicine - [facility] [address] [place] [address] Outr Resulting Lab, Provider Social History Tobacco [...] Quantiferon Interpretation Negative Negative 08/21/2022 14:00 EDT [facility] Comment:No interferon-gamma response to M. tuberculosis antigens was detected. ??Infection with M. tuberculosis is unlikely. A single negative result does not exclude infection with M. tuberculosis. ??In patients at high risk for M. tuberculosis infection, a second test should be considered. TB1 Ag minus Nil 0.13 IU/ml 08/21/20 14:00 EDT [facility] TB2 Ag minus Nil 0.09 IU/mL 08/21/20 14:00 EDT [facility] Blood VENOUS BLOOD / Unknown 08/18/2022 9:08 EDT 08/21/2022 13:39 EDT Narrative [facility] - 08/21/2022 14:00 EDT Results were obtained with the Qiagen QuantiFERON-TB Gold Plus CLIA. New platform in use 08/03/2021 Provider Outr Resulting Lab IMMUNOLOGY A ND SEROLOGY ORDERABLES Performing Organization Address [facility] Co de Phone Number [facility] [address] [place] [address] * QUANTIFERON MITOGEN (PERFORMABLE) (08/18/2022 9:08 EDT) Blood VENOUS BLOOD / Unknown 08/18/2022 9:08 EDT 08/20/2022 15:42 EDT Provider Outr Resulting Lab IMMUNOLOGY A ND SEROLOGY ORDERABLES Performing Organization Address [facility]/ZIP Co de Phone Number [facility] [address] [place] [address] * QUANTIFERON TB2 (PERFORMABLE) (08/18/2022 9:08 EDT) Blood VENOUS BLOOD / Unknown 08/18/2022 9:08 EDT 08/20/2022 15:42 EDT Provider Outr Resulting Lab IMMUNOLOGY A ND SEROLOGY ORDERABLES Performing Organization Address [facility]/ZIP Co de Phone Number [facility] [address] [place] [address] * QUANTIFERON TB1 (PERFORMABLE) (08/18/2022 9:08 EDT) Blood VENOUS BLOOD / Unknown 08/18/2022 9:08 EDT 08/20/2022 15:42 EDT Provider Outr Resulting Lab IMMUNOLOGY A ND SEROLOGY ORDERABLES Performing Organization Address [facility] de Phone Number [facility] [address] [place] [address] * QUANTIFERON NIL (PERFORMABLE) (08/18/2022 9:08 EDT) Blood VENOUS BLOOD / Unknown 08/18/2022 9:08 EDT 08/20/2022 15:42 EDT Provider Outr Resulting Lab IMMUNOLOGY A ND SEROLOGY ORDERABLES Performing Organization Address [facility] de Phone Number [facility] [address] [place] [address] documented in this encounter Visit Diagnoses Not on filedocumented in this encounter Care Teams Sash Repairer Relationship Specialty Start Date End Date Unknown, ProviderMD PCP - General 11/10/15 Unknown, MD Gavi 11/10/15 documented as of this encounter
--- OUTSIDE RECORDS SUMMARY | 2024-09-30 08:57 | XMS_ITS | Encounter Summary ---
[place] [address] Care Team Providers Care Cargo Service Supervisor Name Role Phone MikeYesy Swenson MALACHI Primary Care Provider Encounter Details Date Type Department Care Team (Latest Contact Info) Description 05/31/2023 10:15 AM EDT Laboratory Appointment Lab [address] [place] [address] GCA (giant cell arteritis); Immunosuppressed [...] 10:18 AM EDT) Neutrophil % 61.4 % [facility] Neutrophil Absolute 4.38 1.70 - 6.10 x10(3)/mc L [facility] Lymph % 25.0 % [facility] Lymphocytes Abs 1.8 0.9 - 3.2 x10(3)/mc L [facility] Monocyte % 11.4 % [facility] Monocyte Abs 0.8 0.3 - 0.9 x10(3)/mc L [facility] Eos % 1.1 % [facility] Eosinophils Abs 0.1 0.0 - 0.4 x10(3)/mc L [facility] Basophil % 0.4 % [facility] Baso Absolute 0.0 0.0 - 0.1 x10(3)/mc L [facility] Immature Gran % 0.70 % [facility] Comment: Immature granulocytes(IG's)percentage and absolute count will include metamyelocytes, myelocytes, and promyelocytes. Blood smears from CBCs yielding IG's will be scanned manually for concordance. If this scan disagrees with the automated IG or if promyelocytes are noted, a manual differential will be performed. Immature Gran Absolute 0.05(H) 0.00 - 0.04 x10(3)/mc L [facility] Blood 05/31/2023 10:1 8 AM EDT 05/31/2023 10:37 AM EDT Narrative Resulting Agency Comment Spec In Lab Ananya Payan HEMATOLOGY ORDERABLE S Performing Organization Address City/[facility]/ZIP Co de Phone Number [facility] [place] [address] * (ABNORMAL) Hemogram (05/31/2023 10:18 AM EDT) White Blood Cell 7.1 4.0 - 9.5 x10(3)/mc L [facility] Red Blood Cell 4.26(L) 4.58 - 5.54 x10(6)/mc L [facility] Hemoglobin 14.2 13.7 - 16.5 g/dL [facility] Hematocrit 40.3(L) 40.5 - 48.5 % [facility] Mean Cell Volume 94.6(H) 82.9 - 93.1 fL [facility] Mean Cell Hemoglobin 33.3(H) 27.5 - 32.1 pg [facility] Mean Cell Hemoglobin Concentration 35.2 32.0 - 35.7 g/dL [facility] Platelet 195 145 - 357 x10(3)/mc L [facility] RDW Standard Deviation 47.1(H) 36.0 - 45.0 fL [facility] RDW coefficient of variation 13.6 11.4 - 13.8 % [facility] Mean Platelet Volume 9.8 7.6 - 12.9 fL [facility] NRBC% auto 0.0 % [facility] NRBC Absolute 0.000 0.000 - 0.000 x10(3)/mc L [facility] Blood 05/31/2023 10:1 8 AM EDT 05/31/2023 10:37 AM EDT Narrative Resulting Agency Comment Spec In Lab Ananya Payan DO HEMATOLOGY ORDERABLE S Performing Organization Address City/[facility]/ZIP Co de Phone Number [facility] [place] [address] * CRP, acute inflammation (05/31/2023 10:18 AM EDT) [facility] C-Reactive Protein <3.0 <=4.9 mg/L [facility] Blood 05/31/2023 10:1 8 AM EDT 05/31/2023 10:37 AM EDT Narrative Resulting Agency Comment Spec In Lab Linda Shaikh DO CHEMISTRY ORDERABL ES Performing Organization Address [facility] Co de Phone Number [facility] [place] [address] * Sedimentation rate (05/31/2023 10:18 AM EDT) [facility] Sedimentation Rate Automated 4 3 - 46 mm/hr [facility] Comment: Effective November 05, 2019 new capillary photometric technology has resulted in a change in reference ranges. It is recommended that each ESR result be reviewed with its own age appropriate reference range. Blood 05/31/2023 10:1 8 AM EDT 05/31/2023 10:37 AM EDT Narrative Resulting Agency Comment Spec In Lab Linda Shaikh DO HEMATOLOGY ORDERAB LES Performing Organization Address [facility] de Phone Number [facility] [place] [address] * Lipid Panel (Reflex Direct LDL) (05/31/2023 10:18 AM EDT) Cholesterol, Total 239 mg/dL [facility] Comment: Lower Risk: <200 mg/dL Average Risk: 200-239 mg/dL Higher Risk: >cj=359 mg/dL Triglyceride 191 mg/dL [facility] Comment: Average Risk/Lower Risk: <150 mg/dL Borderline High Risk: 150-199 mg/dL High Risk: 200-499 mg/dL Very High Risk: >xv=246 mg/dL HDL Cholesterol 51 mg/dL [facility] Comment: Males: ?? Higher Risk: <40 mg/dL Females: ?? Higher Risk: <50 mg/dL LDL Cholesterol 150 mg/dL [facility] Comment: Lowest Risk: <100 mg/dL Lower Risk: 100-129 mg/dL Borderline High Risk: 130-159 mg/dL High Risk: 160-189 mg/dL Very High Risk: >nz=995 mg/dL Cholesterol/HDL Ratio 4.7 ratio [facility] Lipid Interpretation See Note [facility] Comment: Lipid management should be guided by a patient? s ASCVD risk, goals and preferences. ACC/AHA Guidelines recommend high intensity statin if clinical ASCVD or LDL greater than or equal to 190 mg/dL. http://Bubble [employer] Balm.com/SJR-ZJO-Ylphgtlxf Adults aged 40-75 with LDL 70-189 mg/dL should have their 10 year ASCVD risk estimated with the ACC/AHA ASCVD risk pool installer http://tools.acc.org/MPQBZ-Cwjb-Tzovgeulo/ Statin should be discussed if risk greater [...] MD CHEMISTRY ORDERABLE S [facility] [place] [address] * Comprehensive metabolic panel (non-fasting) (05/31/2023 10:18 AM EDT) Glucose 115 65 - 199 mg/dL [facility] Comment:Diabetes: >=200 mg/d L plus symptoms Blood Urea Nitrogen 20 10 - 20 mg/dL [facility] Creatinine 1.15 0.80 - 1.50 mg/dL [facility] Sodium 139 135 - 145 mmol/L [facility] Potassium 4.6 3.5 - 5.0 mmol/L [facility] Comment: Please note: ??Patients with WBC >100,000 may have falsely elevated Potassium levels. ??For accurate Potassium quantification in these patients send serum separator tube (gold top) for subsequent determinations. ??Contact the Clinical Chemistry Laboratory if there are any questions. Chloride 103 98 - 107 mmol/L [facility] Carbon Dioxide 27 22 - 31 mmol/L [facility] Anion Gap 9 5 - 15 mmol/L [facility] Calcium 9.7 8.5 - 10.5 mg/dL [facility] Protein, Total 6.7 6.1 - 8.0 g/dL [facility] Albumin 4.4 3.2 - 5.2 g/dL [facility] Aspartate Aminotransferase 16 0 - 39 unit/L [facility] Alanine Aminotransferase 12 0 - 55 unit/L [facility] Alkaline Phosphatase 45 40 - 130 unit/L [facility] Bilirubin, Total 0.6 0.2 - 1.3 mg/dL [facility] Est Glomerular Filtration Rate 67 >=60 mL/min/1. 73 m?? [facility] Comment: This patient's estimated GFR [...] MD CHEMISTRY ORDERABLE S [facility] [place] [address] documented in this encounter Visit Diagnoses Diagnosis GCA (giant cell arteritis) Giant cell arteritis Immunosuppressed status Unspecified disorder of immune mechanism Medication monitoring encounter Encounter for therapeutic drug monitoring Hyperlipidemia, unspecified hyperlipidemia type documented in this encounter Care Teams Cargo Service Supervisor Relationship Specialty Start Date End Date Yesy Nagy APRN [address] [place] [address] PCP - General Geriatric Medicine 08/02/22 documented as of this encounter
--- OUTSIDE RECORDS SUMMARY | 2024-09-30 08:58 | XMS_ITS | Encounter Summary ---
Author Organization [facility] Address [facility] [place] [address] Care Team Providers Care Emergency Room Tech Name Role Phone Yesy Nagy APRN Primary Care Provider Encounter Details Date Type Department Care Team (Late st Contact Info) Description 12/18/2022 Telephone [place] [address] Emma Zuñiga LPN Social History [...] [facility] Note: Judson Patel Jr. Is hoping to decrease his prednisone dosage and keep pain levels at a minimum. He is hoping that Actemra will be able to keep him walking since before prednisone he had a hard time standing up and walking around. documented as of this encounter Visit Diagnoses Not on filedocumented in this encounter Care Teams Emergency Room Tech Relationship Specialty Start Date End Date Yesy Nagy APRN [address] [place] [address] PCP - General Geriatric Medicine 08/02/22 documented as of this encounter
--- OUTSIDE RECORDS SUMMARY | 2024-09-30 08:58 | XMS_ITS | Encounter Summary ---
[place] [address] Care Team Providers Care Plant Buyer Name Role Phone Yesy Nagy APRN Primary Care Provider Encounter Details Date Type Department Care Team (Late st Contact Info) Description 12/15/2022 Telephone [place] [address] Flaquita Ricks, RN Social History [...] on filedocumented in this encounter Care Teams Plant Buyer Relationship Specialty Start Date End Date Yesy Nagy APRN [address] [place] [address] PCP - General Geriatric Medicine 08/02/22 documented as of this encounter
--- OUTSIDE RECORDS SUMMARY | 2024-09-30 08:58 | XMS_ITS | Encounter Summary ---
Author Organization [facility] [place] [address] Care Team Providers Care Car Shunter Name Role Phone Yesy Nagy APRN Primary Care Provider [phone]- [phone] Encounter Details Date Type Department Care Team (Latest Contact Info) Description 04/25/2023 10:30 AM EDT TH Visit (TeleHealth) [place] [phone] Ananya Payan DO [facility] [place] [address] GCA (giant cell arteritis); Immunosuppressed status; Medication monitoring encounter; nursing home current use of systemic steroids; PMR (polymyalgia [...] Telephone Follow Up Note PCP: Yesy MacLeod, ROLL REPAIRER Judson K Jorge Jr. is a 72 y.o. male who we are seeing for the continuing management of GCA. At the outset of this visit, I made them aware that this telephone visit may be billed similar to aclinic visit to him or his insurance company. MR. Patel were in agreement to continue this visit. Total telephone visit time: [id number] for a total 20 minutes. Rheum History: [...] of prednisone. -He was seen by his unix administrator for eye pain last week and was treated for possible conjunctivitis I do not have these records.. He reports that his graphic coordinator felt that there was contamination from his [...] resuming tocilizumab. Plan - Obtain records from [facility] visit - Continue Prednisone 5mg daily - Hold Tolcilizumab x2 weeks - Continue Calcium and Vit D supplement - Phone follow-up in 2 weeks - Follow up in person in 2 months. Patient was discussed with Dr. Luis Payan DO Rheumatology Fellow Pager: [phone] * Pravin Smith MD - 04/25/2023 10:30 AM EDT Attending Addendum The patient had a TeleHealth visit with Dr. Ananya Payan, rheumatology fellow I. We reviewed the patient's interval history and Dr. Payan's management plan. I agree with Dr. Payan's assessment and plan. I did not directly interact with the patient. Pravin Smith MD Staff Inspector Filter Tip documented in this encounter Plan of Treatment Not on file documented as of this encounter Goals Goal Patient Goal Type Associated Problems Recent Progress Patient-Stated? Author DH Self-Management Patient Facing Action Plan No Danica Taylor, [facility] Note: Judson Nagel Jorge Funk Is [...] monitoring encounter Encounter for therapeutic drug monitoring intermission coordinator current use of systemic steroids Encounter for long-term (current) use of steroids PMR (polymyalgia rheumatica) Polymyalgia rheumatica documented in this encounter Care Teams Car Shunter Relationship Specialty Start Date End Date Yesy Nagy APRN [address] [place] [address] PCP - General Geriatric Medicine 08/02/22 documented as of this encounter
--- OUTSIDE RECORDS SUMMARY | 2024-09-30 08:58 | XMS_ITS | Encounter Summary ---
Author Organization [facility] Address [facility] [place] [address] Care Team Providers Care Import Manager Name Role Phone Yesy Nagy MALACHI Primary Care Provider Encounter Details Date Type Department Care Team (Late st Contact Info) Description 12/18/2022 Telephone [place] [address] Emma Zuñiga LPN Social History [...] LPN - 12/18/2022 3:53 PM EST This documentation writer called and spoke with pharmacy in [...] Action Plan No Danica Taylor, [facility] Note: Judson Patel Jr. Is hoping to decrease his prednisone dosage and keep pain levels at a minimum. He is hoping that Actemra will be able to keep him walking since before prednisone he had a hard time standing up and walking around. documented as of this encounter Visit Diagnoses Not on filedocumented in this encounter Care Teams Import Manager Relationship Specialty Start Date End Date Yesy Nagy APRN [address] [place] [address] PCP - General Geriatric Medicine 08/02/22 documented as of this encounter
--- OUTSIDE RECORDS SUMMARY | 2024-09-30 08:58 | XMS_ITS | Encounter Summary ---
Author Organization [facility] Address [facility] [place] [address] Care Team Providers Care Turf Farm Worker Name Role Phone YakovChristianaYesybe LY Primary Care Provider [phone]- [phone] Reason for Visit * Consultation (STAT) - Closed Specialty Diagnoses / Procedures Referred By Socrates t Referred To Contact Dermatology Diagnoses Candidal paronychia Yesy Nagy APRN [address] [place] [address] [facility] Dermatology [address] [place] [address] Referral ID Status Reason Start Date Expiration Date V isits Requested Visits Authorized [id number] Closed Consult, Test & Treat 05/07/2023 05/06/2024 1 1 Encounter Details Date Type Department Care Team (Latest Contact Info) Description 05/23/2023 11:20 AM EDT Office Visit Dermatology at [facility] [address] [place] [phone] [facility] [address] [place] [address] Onychomycosis (Primary Dx); Chronic paronychia [...] Obtain labs in 3 weeks (sent to [facility]) Figure 1 Figure 2 Photo(s) taken and charted with patient's verbal consent. Other: Reviewed and/or interpreted test results Reviewed external notes/records RTC: 3 months for candidal paronychia follow up []Note routed to pocket secretary assembler [x]Recall placed in scheduling system []Appointment scheduled at checkout Scribe attestation: Alex Rivera has performed the documentation for this encounter in the presence of and acting as a scribe for Rafa Rachel MD. I performed the above scribed service and agree with the accuracy of the documentation in this encounter. Reviewed and signed by: Rafa Rachel MD Dermatology [facility] Patient seen and evaluated with staff oracle engineer: Tonny Gudino MD Department of Dermatology [facility] * Tonny Gudino MD - 05/23/2023 11:20 [...] laterality documented in this encounter Care Teams Turf Farm Worker Relationship Specialty Start Date End Date Yesy Nagy APRN [address] [place] [address] PCP - General Geriatric Medicine 08/02/22 documented as of this encounter
--- OUTSIDE RECORDS SUMMARY | 2024-09-30 08:58 | XMS_ITS | Encounter Summary ---
Author Organization [facility] [place] [address] Care Team Providers Care Cadmium Plater Name Role Phone Yesy Nagy APRN Primary [...] on filedocumented in this encounter Care Teams Cadmium Plater Relationship Specialty Start Date End Date Yesy Nagy APRN [address] [place] [address] PCP - General Geriatric Medicine 08/02/22 documented as of this encounter
--- OUTSIDE RECORDS SUMMARY | 2024-09-30 08:58 | XMS_ITS | Encounter Summary ---
Author Organization [facility] Address [facility] [place] [address] Care Team Providers Care Mobile Home Lot Utility Worker Name Role Phone Yesy Nagy APRN Primary Care Provider [phone]- [phone] Encounter Details Date Type Department Care Team (Late st Contact Info) Description 05/31/2023 9:30 AM EDT Office [place] [phone] Ananya Payan, [facility] [address] GCA (giant cell arteritis); Medication monitoring encounter; PMR (polymyalgia rheumatica); senior living current use of systemic steroids Social History [...] Dr. Neel Payan DO Rheumatology Fellow Pager: [phone] documented in this encounter Plan of Treatment Not on file documented as of this encounter Goals Goal Patient Goal Type Associated Problems Recent Progress Patient-Stated? Author DH Self-Management Patient Facing Action Plan No Danica Taylor, [facility] Note: Judson Patel JrRandy Is [...] Rate Automated 4 3 - 46 mm/hr [facility] Comment: Effective November 05, 2019 new capillary photometric technology has resulted in a change in reference ranges. It is recommended that each ESR result be reviewed with its own age appropriate reference range. Blood 05/31/2023 10:1 8 AM EDT 05/31/2023 10:37 AM EDT Narrative Resulting Agency Comment Spec In Lab Linda Shaikh DO HEMATOLOGY ORDERAB LES [facility] [place] [address] * CRP, acute inflammation (05/31/2023 10:18 AM EDT) C-Reactive Protein <3.0 <=4.9 mg/L [facility] Blood 05/31/2023 10:1 8 AM EDT 05/31/2023 10:37 AM EDT Narrative Resulting Agency Comment Spec In Lab Linda Shaikh DO CHEMISTRY ORDERABL ES [facility] [place] [address] documented in this encounter Visit Diagnoses Diagnosis GCA (giant cell arteritis) Giant cell arteritis Medication monitoring encounter Encounter for therapeutic drug monitoring PMR (polymyalgia rheumatica) Polymyalgia rheumatica senior living current use of systemic steroids Encounter for long-term (current) use of steroids documented in this encounter Care Teams Mobile Home Lot Utility Worker Relationship Specialty Start Date End Date Yesy Nagy APRN [address] [place] [address] PCP - General Geriatric Medicine 08/02/22 documented as of this encounter
--- OUTSIDE RECORDS SUMMARY | 2024-09-30 08:58 | XMS_ITS | Encounter Summary ---
Author Organization [facility] Address [facility] [place] [address] Care Team Providers Care Public Speaking Instructor Name Role Phone Yesy Nagy APRN Primary Care Provider Reason for Referral * Diagnostic Test (Routine) - Closed Specialty Diagnoses / Procedures Referred By Contac t Referred To Contact Radiology Diagnoses Gait instability Tremor Procedures MRI Brain wo Contrast Srikanth Morris MD [facility] [place] [address] [place] [address] Referral ID Status Reason Start Date Expiration Date V isits Requested Visits Authorized [id number] Closed Specialty Service Requested 01/23/2023 07/23/2024 1 1 Reason for Visit * Diagnostic Test (Routine) - Closed Specialty Diagnoses / Procedures Referred By Contac t Referred To Contact Radiology Diagnoses Gait instability Tremor Procedures MRI Brain wo Contrast Srikanth Morris MD [facility] [place] [address] [place] [address] Referral ID Status Reason Start Date Expiration Date V isits Requested Visits Authorized [id number] Closed Specialty Service Requested 01/23/2023 07/23/2024 1 1 Encounter Details Date Type Department Care Team (Latest Contact Info) Description 02/23/2023 12:30 PM EDT - 02/23/2023 1:41 PM EDT Hospital [place] [address] Srikanth Morris MD [facility] [place] [address] [place] [address] Gait instability; Tremor Discharge Disposition: Home Social [...] (FISH OIL ORAL) Take by mouth. Ascorbic Yvds-Gktqxyffr-Xgc (Emergen-C) 1,000 mg Powder Effervescent in Packet [...] Danica Taylor, [facility] Note: Judson Nagel Jorge Funk Is hoping [...] questions please contact the health child care center assistant director that requested your imaging first. ? Electronically signed by: Jack Srinivasan MD, [facility] ([phone]), at 02/23/2023 5:06 PM Narrative 02/23/2023 5:06 [...] have questions please contactthe health child care center assistant director that requested your imaging first. Electronically signed by: Jack [facility]rinivasan [facility]([phone]), at 02/23/2023 5:06 PM Srikanth Morris MD IMG MRI ORDERABLES documented in this encounter Visit Diagnoses Diagnosis Gait instability Abnormality of gait Tremor Abnormal involuntary movements documented in this encounter Care Teams Public Speaking Instructor Relationship Specialty Start Date End Date Yesy Nagy APRN [address] [place] [address] PCP - General Geriatric Medicine 08/02/22 documented as of this encounter
--- OUTSIDE RECORDS SUMMARY | 2024-09-30 08:58 | XMS_ITS | Encounter Summary ---
Author Organization [facility] [place] [address] Care Team Providers Care Drying Machine Operator Package Yarns Name Role Phone Yesy Nagy APRN Primary Care Provider [phone]- [phone] Encounter Details Date Type Department Care Team (Late st Contact Info) Description 05/09/2023 Telephone [place] [address] Landy Monson RN Social History [...] on filedocumented in this encounter Care Teams Drying Machine Operator Package Yarns Relationship Specialty Start Date End Date Yesy Nagy APRN [address] [place] [address] PCP - General Geriatric Medicine 08/02/22 documented as of this encounter
--- OUTSIDE RECORDS SUMMARY | 2024-09-30 08:58 | XMS_ITS | Encounter Summary ---
Author Organization [facility] Address [facility] [place] [address] Care Team Providers Care Detacker Name Role Phone Yesy Nagy APRN Primary Care Provider [phone]- [phone] Reason for Visit * Reason Comments Specialty Pharmacy Review Tocilizumab (A ctemra) Actpen 162mg/0.9mL Encounter Details Date Type Department Care Team (Late st Contact Info) Description 05/31/2023 Specialty [place] [address] Yuliya Booker, [facility] Social History Tobacco Use Types Packs/Day [...] Booker - 05/31/2023 11:59 PM EDT The [facility] has completed a benefits investigation for Judson Patel Jr. to review their eligibility to fill at [facility]. Per patient's medication list they are prescribed Actemra and the medication is able to be filled at the [facility] but is not currently on Actemra. documented in this encounter Plan of Treatment Not on file documented as of this encounter Goals Goal Patient Goal Type Associated Problems Recent Progress Patient-Stated? Author DH Self-Management Patient Facing Action Plan No Danica Taylor, [facility] Note: Judson Patel Jr. Is hoping to decrease his prednisone dosage and keep pain levels at a minimum. He is hoping that Actemra will be able to keep him walking since before prednisone he had a hard time standing up and walking around. documented as of this encounter Visit Diagnoses Not on filedocumented in this encounter Care Teams Detacker Relationship Specialty Start Date End Date Yesy Nagy APRN [address] [place] [address] PCP - General Geriatric Medicine 08/02/22 documented as of this encounter
--- OUTSIDE RECORDS SUMMARY | 2024-09-30 08:58 | XMS_ITS | Encounter Summary ---
Author Organization [facility] [place] [address] Care Team Providers Care Satellite Communications Engineer Name Role Phone Yesy Nagy MALACHI Primary Care Provider [phone] Reason for Visit * Reason Comments Medication Management Patient Education Encounter Details Date Type Department Care Team (Late st Contact Info) Description 01/30/2023 Specialty Pharmacy [place] [phone] Danica Taylor [facility] Social History Tobacco Use Types [...] Requirements: no Medication Reconciliation Discrepancies (compared to [facility] med list) -none Medication List: Current [...] OIL ORAL) Take by mouth. ??? Ascorbic Lfuy-Zmgxmpsdg-Izw (Emergen-C) 1,000 mg Powder Effervescent in Packet [...] specialty services: Yes Patient accepted offer to teen counselor: select all, adherence/missed doses, cost of [...] to doctor discussed, reminder to refill or continuous pickling line pickler helper medication discussed, self-monitoring discussed, start medication discussed, [...] Assessment: Does patient have a primary care consultant: No Does patient have an emergency contact on file: Yes Does patient need referral to social services director: No Does patient need referral to advocacy [...] symptoms of infection, signs and symptoms of AUTO PHONE INSTALLER demyelinating disorders On a scale of 1-10 the patient rates their quality of life: not rated Care Plan Reviewed and Approved by both Pharmacist and Patient: Yes Interventions (if applicable): No Pharmacist follow-up needed: Yes Delivery Method: Delivery Patient understands no changes to current drug regimen were made at the appointment and that [facility] isproviding recommendations (summary located at top of note) for provider review and follow up. Danica Taylor RPH 01/30/23 12:22 PM documented in this encounter Plan of Treatment Not on file documented as of this encounter Goals Goal Patient Goal Type Associated Problems Recent Progress Patient-Stated? Author BRYAN Self-Management Patient Facing Action Plan No Danica Taylor [facility] Note: Judson Patel Jr. Is hoping to decrease his prednisone dosage and keep pain levels at a minimum. He is hoping that Actemra will be able to keep him walking since before prednisone he had a hard time standing up and walking around. documented as of this encounter Visit Diagnoses Not on filedocumented in this encounter Care Teams Satellite Communications Engineer Relationship Specialty Start Date End Date Yesy Nagy APRN [address] [place] [address] PCP - General Geriatric Medicine 08/02/22 documented as of this encounter
--- OUTSIDE RECORDS SUMMARY | 2024-09-30 08:58 | XMS_ITS | Encounter Summary ---
Author Organization [facility] Address [facility] [place] [address] Care Team Providers Care Grain Shipper Name Role Phone Yesy Nagy APRN Primary Care Provider [phone]- [phone] Encounter Details Date Type Department Care Team (Late st Contact Info) Description 05/08/2023 [place] [phone] Ananya Payan DO [facility] [place] [address] Social History Tobacco Use Types Packs/Day Years [...] [facility] Note: Judson Patel Jr. Is hoping to decrease his prednisone dosage and keep pain levels at a minimum. He is hoping that Actemra will be able to keep him walking since before prednisone he had a hard time standing up and walking around. documented as of this encounter Visit Diagnoses Not on filedocumented in this encounter Care Teams Grain Shipper Relationship Specialty Start Date End Date Yesy Nagy APRN [address] [place] [address] PCP - General Geriatric Medicine 08/02/22 documented as of this encounter
--- OUTSIDE RECORDS SUMMARY | 2024-09-30 08:58 | XMS_ITS | Encounter Summary ---
Author Organization [facility] [place] [address] Care Team Providers Care Senior Functional Analyst Name Role Phone MikeYesy Swenson MALACHI Primary Care Provider [phone] Reason for Visit * Reason Onset Date Comments Other 05/10/2023 Encounter Details Date Type Department Care Team (Late st Contact Info) Description 05/10/2023 Telephone [place] [phone] Dayna Paez RN Other Social History Tobacco [...] [facility] Note: Judson Patel Jr. Is hoping to decrease his prednisone dosage and keep pain levels at a minimum. He is hoping that Actemra will be able to keep him walking since before prednisone he had a hard time standing up and walking around. documented as of this encounter Visit Diagnoses Not on filedocumented in this encounter Care Teams Senior Functional Analyst Relationship Specialty Start Date End Date Yesy Nagy APRN [address] [place] [address] PCP - General Geriatric Medicine 08/02/22 documented as of this encounter
--- OUTSIDE RECORDS SUMMARY | 2024-09-30 08:58 | XMS_ITS | Encounter Summary ---
Author Organization Count Includes [facility] Address [facility] [place] [address] Care Team Providers Care Flowers Salesperson Name Role Phone Yesy Nagy MALACHI Primary Care Provider Encounter Details Date Type Department Care Team (Late st Contact Info) Description 01/22/2023 Orders [place] [phone] Ananya Payan, [facility] [place] [address] assisted current use of systemic steroids; GCA (giant [...] (ABNORMAL) Sedimentation rate (01/23/2023 9:59 AM EST) [facility] Sedimentation Rate Automated 51(H) 3 - 46 mm/hr [facility] Comment: Effective November 05, 2019 new capillary photometric technology has resulted in a change in reference ranges. It is recommended that each ESR result be reviewed with its own age appropriate reference range. Blood 01/23/2023 9:59 AM EST 01/23/2023 10:08 AM EST Narrative Resulting Agency Comment Spec In Lab Linda Shaikh DO HEMATOLOGY ORDERAB LES Performing Organization Address City/[facility]/ZIP Co de Phone Number [facility] [place] [address] * (ABNORMAL) CRP, acute inflammation (01/23/2023 9:59 AM EST) C-Reactive Protein 5.2(H) <=4.9 mg/L [facility] Blood 01/23/2023 9:59 AM EST 01/23/2023 10:08 AM EST Narrative Resulting Agency Comment Spec In Lab Linda Shaikh DO CHEMISTRY ORDERABL ES Performing Organization Address City/[facility] Co de Phone Number [facility] [place] [address] documented in this encounter Visit Diagnoses Diagnosis assisted current use of systemic steroids Encounter for long-term (current) use of steroids GCA (giant cell arteritis) Giant cell arteritis documented in this encounter Care Teams Flowers Salesperson Relationship Specialty Start Date End Date Yesy Nagy APRN [address] [facility] [place] [address] PCP - General Geriatric Medicine 08/02/22 documented as of this encounter
--- OUTSIDE RECORDS SUMMARY | 2024-09-30 08:58 | XMS_ITS | Encounter Summary ---
Author Organization [facility] Address [facility] [place] [address] Care Team Providers Care Cad Engineer Name Role Phone Yesy Nagy APRN Primary Care Provider Encounter Details Date Type Department Care Team (Late st Contact Info) Description 01/23/2023 Telephone [place] [phone] Ananya Payan DO [facility] [place] [address] Social History Tobacco Use Types Packs/Day Years [...] infection. 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
--- OUTSIDE RECORDS SUMMARY | 2024-09-30 08:58 | XMS_ITS | Encounter Summary ---
Author Organization [facility] Address [facility] [place] [address] Care Team Providers Care Industrial Truck Mechanic Name Role Phone Yesy Nagy APRN Primary Care Provider Encounter Details Date Type Department Care Team (Latest Contact Info) Description 12/04/2022 11:45 AM EST TH Visit (TeleHealth) [place] [address] Ananya Payan DO [facility] [place] [address] GCA (giant cell arteritis) Social History Tobacco [...] by Ananya Payan DO or the rooming higher level teaching assistant as documented in their note. This [...] fracture. He is following with Ortho at [facility] for this. He reports pain and swelling [...] CRP ESR. He will do this at [facility] on the when he has a primary [...] Dr. Stephen Payan DO Rheumatology Fellow Pager: [phone] * Stephen Payan MD - 12/04/2022 11:45 [...] arteritis documented in this encounter Care Teams Industrial Truck Mechanic Relationship Specialty Start Date End Date Yesy Nagy APRN [address] [place] [address] PCP - General Geriatric Medicine 08/02/22 documented as of this encounter
--- OUTSIDE RECORDS SUMMARY | 2024-09-30 08:58 | XMS_ITS | Encounter Summary ---
Author Organization [facility] Address [facility] [place] [address] Care Team Providers Care Herb Counselor Name Role Phone Yesy Nagy APRN Primary Care Provider Encounter Details Date Type Department Care Team (Late st Contact Info) Description 03/14/2023 [place] [address] Thony Dee MD [facility] [place] [address] Social History Tobacco Use Types Packs/Day Years [...] us. He will call the lab at [facility] to fax them. Thony Dee MD Rheumatology Fellow Pager: [phone] documented in this encounter Plan of Treatment Not on file documented as of this encounter Goals Goal Patient Goal Type Associated Problems Recent Progress Patient-Stated? Author DH Self-Management Patient Facing Action Plan No Danica Taylor, [facility] Note: Judson Robe Patel Jr. Is hoping to decrease his prednisone dosage and keep pain levels at a minimum. He is hoping that Actemra will be able to keep him walking since before prednisone he had a hard time standing up and walking around. documented as of this encounter Visit Diagnoses Not on filedocumented in this encounter Care Teams Herb Counselor Relationship Specialty Start Date End Date Yesy Nagy APRN [address] [place] [address] PCP - General Geriatric Medicine 08/02/22 documented as of this encounter
--- OUTSIDE RECORDS SUMMARY | 2024-09-30 08:58 | XMS_ITS | Encounter Summary ---
Author Organization [facility] Address [facility] [place] [address] Care Team Providers Care Contact Printer Dry Film Name Role Phone Yesy Nagy APRN Primary Care Provider [phone] Reason for Visit * Reason Comments Medication Refill Encounter Details Date Type Department Care Team (Late st Contact Info) Description 12/15/2022 [place] [phone] Ananya Payan, [facility] [place] [address] [facility] current use of systemic steroids; GCA (giant [...] Action Plan No Danica Taylor, [facility] Note: Judson Robe Patel Jr. Is hoping to decrease his prednisone dosage and keep pain levels at a minimum. He is hoping that Actemra will be able to keep him walking since before prednisone he had a hard time standing up and walking around. documented as of this encounter Visit Diagnoses Diagnosis [facility] current use of systemic steroids Encounter for long-term (current) use of steroids GCA (giant cell arteritis) Giant cell arteritis documented in this encounter Care Teams Contact Printer Dry Film Relationship Specialty Start Date End Date Yesy Nagy APRN [address] [place] [address] PCP - General Geriatric Medicine 08/02/22 documented as of this encounter
--- OUTSIDE RECORDS SUMMARY | 2024-09-30 08:58 | XMS_ITS | Encounter Summary ---
Author Organization [facility] Address [facility] [place] [address] Care Team Providers Care Assistant Distribution Manager Name Role Phone Yesy Nagy APRN Primary Care Provider [phone] Reason for Visit * Reason Comments Specialty Refill Management Medication Management Encounter Details Date Type Department Care Team (Late st Contact Info) Description 03/20/2023 Specialty [place] [address] Rayne Vigil, HEALTH INFORMATICS SPECIALIST Social History Tobacco Use Types Packs/Day Years [...] Specialty Pharmacy Consultation; Anil Medeiros [facility] Comprehensive Medication Management (CMM) Judson Patel [...] beneficiary Provider: plan sponsor pharmacist [facility] Follow-up Time Spent: 1-15 min Method of Contact: by telephone Cognitive Ability: good Allergies and Drug intolerance: No Known Allergies Medication Reconciliation Discrepancies (compared to [facility] med list) -none Specialty Pharmacy Refill Questionnaire 03/20/2023 Refill Questionnaire What is the name of the specialty medication you are refilling? Actemra Are you taking any new medications? No Any new medical condition? Yes Please explain problem with iban pt transferred to [facility] Anil Any new allergies? No Any missed [...] were made at the appointment and that [facility] is providing recommendations (summary located at top of note) for provider review and follow up. Anil Medeiros [facility] 03/20/23 10:47 AM documented in this encounter [...] on filedocumented in this encounter Care Teams Assistant Distribution Manager Relationship Specialty Start Date End Date Yesy Nagy APRN [address] [place] [address] PCP - General Geriatric Medicine 08/02/22 documented as of this encounter
--- OUTSIDE RECORDS SUMMARY | 2024-09-30 08:58 | XMS_ITS | Encounter Summary ---
Author Organization [facility] [place] [address] Care Team Providers Care Legislators Name Role Phone Yesy Nagy MALACHI Primary Care Provider [phone] Reason for Visit * Reason Comments Specialty Pharmacy Review Tocilizumab (A ctemra) Actpen 162mg/0.9mL Encounter Details Date Type Department Care Team (Late st Contact Info) Description 01/24/2023 Specialty Pharmacy [facility] [place] [address] Yuliya Booker, [facility] Social History Tobacco Use [...] RPH - 01/24/2023 11:02 AM EST The [facility] has completed a benefits investigation for Judson Patel Jr. to review their eligibility to fill at [facility]. Per patient's medication list they are prescribed Actemra and the medication is able to be filled at the [facility]. Judson Patel Jr. elects [...] on filedocumented in this encounter Care Teams Legislators Relationship Specialty Start Date End Date Yesy Nagy APRN [address] [place] [address] PCP - General Geriatric Medicine 08/02/22 documented as of this encounter
--- OUTSIDE RECORDS SUMMARY | 2024-09-30 08:58 | XMS_ITS | Encounter Summary ---
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 steroids; GCA (giant [...] HC VENIPUNCTURE Routine 01/23/2023 9:59 AM EST ad terminal makeup operator current use of systemic steroids GCA (giant [...] RATE, BLOOD Routine 01/23/2023 9:59 AM EST skilled nursing current use of systemic steroids GCA (giant cell arteritis) HEPATIC FUNCTION PANEL Routine 01/23/2023 9:59 AM EST documented in this encounter Results * Hepatic Function Panel (01/23/2023 9:59 AM EST) [facility] Protein, Total 6.8 6.1 - 8.0 g/dL [facility] Albumin 4.2 3.2 - 5.2 g/dL [facility] Aspartate Aminotransferase 18 0 - 39 unit/L [facility] Alanine Aminotransferase 14 0 - 55 unit/L [facility] Alkaline Phosphatase 64 40 - 130 unit/L [facility] Bilirubin, Total 0.3 0.2 - 1.3 mg/dL [facility] Bilirubin, Direct 0.1 0.0 - 0.3 mg/dL [facility] Blood Venous Draw / Unknown 01/23/2023 9:59 AM EST 01/23/2023 10:10 AM EST Narrative Resulting Agency Comment Spec In Lab Ananya Payan DO CHEMISTRY ORDERABLES [facility] [place] [address] * (ABNORMAL) Sedimentation rate (01/23/2023 9:59 AM EST) Sedimentation Rate Automated 51(H) 3 - 46 mm/hr [facility] Comment: Effective November 05, 2019 new capillary photometric technology has resulted in a change in reference ranges. It is recommended that each ESR result be reviewed with its own age appropriate reference range. Blood 01/23/2023 9:59 AM EST 01/23/2023 10:08 AM EST Narrative Resulting Agency Comment Spec In Lab Linda Shaikh DO HEMATOLOGY ORDERAB LES Performing Organization Address [facility] Co de Phone Number [facility] [place] [address] * HIV Screen, 4th Generation (MC/CGP/APD/NLH) (01/23/2023 9:59 AM EST) Pathologist [facility] HIV Ab/Ag Screen Negative Negative [facility] Comment: This 4th Generation HIV [...] HIV Comment Low Risk of HIV Infection [facility] Blood 01/23/2023 9:59 AM EST 01/23/2023 10:08 AM EST Narrative Resulting Agency Comment Spec In Lab Linda Shaikh DO CHEMISTRY ORDERABL ES Performing Organization Address [facility] Co de Phone Number [facility] [place] [address] * Hepatitis C Antibody (01/23/2023 9:59 AM EST) Pathologist [facility] Hepatitis C Antibody Negative Negative [facility] Blood 01/23/2023 9:59 AM EST 01/23/2023 10:08 AM EST Narrative Resulting Agency Comment Spec In Lab Linda Shaikh DO CHEMISTRY ORDERABL ES Performing Organization Address [facility] Co de Phone Number [facility] [place] [address] * Hepatitis B Surface Antigen (01/23/2023 9:59 AM EST) Hepatitis B Surface Antigen Negative Negative [facility] Blood 01/23/2023 9:59 AM EST 01/23/2023 10:08 AM EST Narrative Resulting Agency Comment Spec In Lab Linda Shaikh DO CHEMISTRY ORDERABL ES Performing Organization Address [facility] Phone Number [facility] [place] [address] * Hepatitis B Surface Antibody (01/23/2023 9:59 AM EST) Hepatitis B Surface Antibody, Quantitative <3.5 IU/L [facility] Comment: HepB Surface Ab Quant: Unvaccinated: < 8.5 IU/L Vaccinated: >= 11.5 IU/L Hepatitis B Surface Antibody Negative [facility] Comment: Expected Results: Vaccinated: Positive Unvaccinated: Negative Patient is presumed to be not vaccinated or immune to HBV infection. Blood 01/23/2023 9:59 AM EST 01/23/2023 10:08 AM EST Narrative Resulting Agency Comment Spec In Lab Linda Shaikh DO CHEMISTRY ORDERABL ES Performing Organization Address [facility] Phone Number [facility] [place] [address] * Hepatitis B Core Antibody, Total (01/23/2023 9:59 AM EST) Hepatitis B Core Antibody Negative Negative [facility] Blood 01/23/2023 9:59 AM EST 01/23/2023 10:08 AM EST Narrative Resulting Agency Comment Spec In Lab Linda Shaikh DO CHEMISTRY ORDERABL ES Performing Organization Address [facility] Co de Phone Number [facility] [place] [address] * (ABNORMAL) CRP, acute inflammation (01/23/2023 9:59 AM EST) C-Reactive Protein 5.2(H) <=4.9 mg/L [facility] Blood 01/23/2023 9:59 AM EST 01/23/2023 10:08 AM EST Narrative Resulting Agency Comment Spec In Lab Linda Shaikh DO CHEMISTRY ORDERABL ES Performing Organization Address City/State/[facility] Co de Phone Number [facility] [place] [address] documented in this encounter Visit Diagnoses Diagnosis ad terminal makeup operator current use of systemic steroids Encounter for long-term (current) use of steroids GCA (giant cell arteritis) Giant cell arteritis Immunosuppressed status Unspecified disorder of immune mechanism documented in this encounter Care Teams Community Relations Representative Relationship Specialty Start Date End Date Yesy Nagy APRN [address] [place] [address] PCP - General Geriatric Medicine 08/02/22 documented as of this encounter
--- OUTSIDE RECORDS SUMMARY | 2024-09-30 08:58 | XMS_ITS | Encounter Summary ---
Author Organization [facility] [place] [address] Care Team Providers Care Mesmerist Name Role Phone Yesy Nagy APRN Primary Care Provider Encounter Details Date Type Department Care Team (Late st Contact Info) Description 03/16/2023 Telephone [place] [address] Thony Dee MD [facility] [place] [address] Social History Tobacco Use Types Packs/Day Years [...] stable. Thony Dee MD Rheumatology Fellow Pager: [phone] documented in this encounter Plan of Treatment [...] on filedocumented in this encounter Care Teams Mesmerist Relationship Specialty Start Date End Date Yesy Nagy APRN [address] [place] [address] PCP - General Geriatric Medicine 08/02/22 documented as of this encounter
--- OUTSIDE RECORDS SUMMARY | 2024-09-30 08:58 | XMS_ITS | Encounter Summary ---
Author Organization [facility] [place] [address] Care Team Providers Care Fire Regulator Name Role Phone Yesy Nagy [employer] Primary Care Provider Encounter Details Date Type Department Care Team (Late st Contact Info) Description 12/26/2022 Telephone [place] [address] Ananya Payan DO [facility] [place] [address] Social History Tobacco Use Types Packs/Day Years [...] on filedocumented in this encounter Care Teams Fire Regulator Relationship Specialty Start Date End Date Yesy Nagy APRN [address] [place] [address] PCP - General Geriatric Medicine 08/02/22 documented as of this encounter
--- OUTSIDE RECORDS SUMMARY | 2024-09-30 08:58 | XMS_ITS | Encounter Summary ---
Author Organization [facility] Address [facility] [place] [address] Care Team Providers Care Airdrop Systems Technician Name Role Phone Yesy Nagy APRN Primary Care Provider [phone] Reason for Visit * Reason Onset Date Comments Results 02/26/2023 Encounter Details Date Type Department Care Team (Late st Contact Info) Description 02/26/2023 Telephone Neurology at [facility] [place] [phone] Srikanth Morris MD [facility] [place] [address] Results Social History Tobacco Use Types Packs/Day [...] Action Plan No Danica Taylor, [facility] Note: Judson Patel Jr. Is hoping to decrease his prednisone dosage and keep pain levels at a minimum. He is hoping that Actemra will be able to keep him walking since before prednisone he had a hard time standing up and walking around. documented as of this encounter Visit Diagnoses Not on filedocumented in this encounter Care Teams Airdrop Systems Technician Relationship Specialty Start Date End Date Yesy Nagy APRN [address] [place] [address] PCP - General Geriatric Medicine 08/02/22 documented as of this encounter
--- OUTSIDE RECORDS SUMMARY | 2024-09-30 08:58 | XMS_ITS | Encounter Summary ---
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
--- OUTSIDE RECORDS SUMMARY | 2024-09-30 08:58 | XMS_ITS | Encounter Summary ---
Author Organization [facility] Address [facility] [place] [address] Care Team Providers Care Brownell Operator Name Role Phone Yesy Nagy APRN Primary Care Provider [phone] Reason for Visit * Reason Comments Specialty Pharmacy Review Tocilizumab (A ctemra) Actpen 162mg/0.9mL Encounter Details Date Type Department Care Team (Late st Contact Info) Description 04/25/2023 Specialty Pharmacy Pharmacy at [facility] [place] [address] Yuliya Booker, [facility] Social History Tobacco Use Types Packs/Day Years [...] Booker - 04/25/2023 7:52 AM EDT The [facility] has completed a benefits investigation for Judson Patel Jr. to review their eligibility to fill at [facility]. Per patient's medication list they are prescribed Actemra and the medication is currently filled at the [facility]. documented in this encounter Plan [...] on filedocumented in this encounter Care Teams Brownell Operator Relationship Specialty Start Date End Date Yesy Nagy APRN [address] [place] [address] PCP - General Geriatric Medicine 08/02/22 documented as of this encounter
--- OUTSIDE RECORDS SUMMARY | 2024-09-30 08:58 | XMS_ITS | Encounter Summary ---
Author Organization [facility] Address [facility] [place] [address] Care Team Providers Care Night Time Babysitter Name Role Phone Yesy Nagy MALACHI Primary Care Provider [phone]- [phone] Reason for Visit * Diagnostic Test (Routine) - Closed Specialty Diagnoses / Procedures Referred By Contac t Referred To Contact Radiology Diagnoses Gait instability Tremor Procedures NM Brain Imaging for Parkinsons Disease Srikanth Morris MD [facility] [place] [address] [place] [address] Referral ID Status Reason Start Date Expiration Date V isits Requested Visits Authorized [id number] Closed Specialty Service Requested 01/23/2023 07/23/2024 1 1 Encounter Details Date Type Department Care Team (Latest Contact Info) Description 02/23/2023 8:24 AM EDT - 02/23/2023 12:29 PM EDT Hospital Encounter [place] [address] Srikanth Morris MD [facility] [place] [address] Discharge Disposition: Home Social History [...] (FISH OIL ORAL) Take by mouth. Ascorbic Eqfa-Nuohegiqg-Egl (Emergen-C) 1,000 mg Powder Effervescent in Packet [...] Arm documented in this encounter Care Teams Night Time Babysitter Relationship Specialty Start Date End Date Yesy Nagy APRN [address] [place] [address] PCP - General Geriatric Medicine 08/02/22 documented as of this encounter
--- OUTSIDE RECORDS SUMMARY | 2024-09-30 08:58 | XMS_ITS | Encounter Summary ---
Author Organization [place] [address] Care Team Providers Care Dining Room Hostess Name Role Phone Yesy Nagy APRN Primary [...] Danica Taylor, [facility] Note: Judson Robe Patel Jr. Is hoping to decrease his prednisone dosage and keep pain levels at a minimum. He is hoping that Actemra will be able to keep him walking since before prednisone he had a hard time standing up and walking around. documented as of this encounter Visit Diagnoses Not on filedocumented in this encounter Care Teams Dining Room Hostess Relationship Specialty Start Date End Date Yesy Nagy APRN [address] [place] [address] PCP - General Geriatric Medicine 08/02/22 documented as of this encounter
--- OUTSIDE RECORDS SUMMARY | 2024-09-30 08:58 | XMS_ITS | Encounter Summary ---
Author Organization [facility] [place] [address] Care Team Providers Care Real Estate Underwriter Name Role Phone Yesy Nagy APRN Primary Care Provider [phone] Encounter Details Date Type Department Care Team (Latest Contact Info) Description 02/06/2023 4:30 PM EDT TH Visit (TeleHealth) [place] [phone] Ananya Payan, 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 Andres Payan DO, PGY4 Rheumatology Fellow Pager: [phone] * Tess Morse MD - 02/06/2023 4:30 [...] recently started on Actemra. Tess Morse MD [email or web address] documented in this encounter Miscellaneous Notes * [...] monitoring encounter Encounter for therapeutic drug monitoring [facility] current use of systemic steroids Encounter for long-term (current) use of steroids Immunosuppressed status Unspecified disorder of immune mechanism documented in this encounter Care Teams Real Estate Underwriter Relationship Specialty Start Date End Date Yesy Nagy APRN [address] [place] [address] PCP - General Geriatric Medicine 08/02/22 documented as of this encounter
--- OUTSIDE RECORDS SUMMARY | 2024-09-30 08:58 | XMS_ITS | Encounter Summary ---
Author Organization [facility] Address [facility] [place] [address] Care Team Providers Care Mammography Tech Name Role Phone Yesy Nagy APRN Primary Care Provider Encounter Details Date Type Department Care Team (Late st Contact Info) Description 01/31/2023 [place] [address] Danica Taylor [facility] Social History Tobacco Use Types Packs/Day Years [...] explained that prednisone has a lot of alf effects such as developing type 2 diabetes, osteoporosis, GI effects, ocular effects, cushingoid features, cardiovascular effects, etc that Actemra does not have. Prednisone isn't a alf solution and Actemra works really well in [...] [facility] Note: Judson Robe Patel Jr. Is hoping to decrease his prednisone dosage and keep pain levels at a minimum. He is hoping that Actemra will be able to keep him walking since before prednisone he had a hard time standing up and walking around. documented as of this encounter Visit Diagnoses Not on filedocumented in this encounter Care Teams Mammography Tech Relationship Specialty Start Date End Date Yesy Nagy APRN [address] [place] [address] PCP - General Geriatric Medicine 08/02/22 documented as of this encounter
--- OUTSIDE RECORDS SUMMARY | 2024-09-30 08:58 | XMS_ITS | Encounter Summary ---
Author Organization [facility] [place] [address] Care Team Providers Care Manufacturing Leader Name Role Phone Yesy Nagy APRN Primary Care Provider [phone] Reason for Referral * Consultation (STAT) - Closed Specialty Diagnoses / Procedures Referred By Contaugustin t Referred To Contact Dermatology Diagnoses Candidal paronychia Yesy Nagy APRN [address] [place] [address] [facility] [address] [place] [address] Referral ID Status Reason Start Date Expiration Date V isits Requested Visits Authorized [id number] Closed Consult, Test & Treat 05/07/2023 05/06/2024 1 1 Encounter Details Date Type Department Care Team (Latest Contact Info) Description 05/07/2023 Transcribe Orders eDH Incoming Referrals [phone] Yesy Nagy APRN [address] [place], [place] [address] Candidal paronychia Social History Tobacco Use Types [...] nails documented in this encounter Care Teams Manufacturing Leader Relationship Specialty Start Date End Date Yesy Nagy APRN [address] [place] [address] PCP - General Geriatric Medicine 08/02/22 documented as of this encounter
--- OUTSIDE RECORDS SUMMARY | 2024-09-30 08:58 | XMS_ITS | Encounter Summary ---
Author Organization [facility] [place] [address] Care Team Providers Care Core Feeder Name Role Phone Yesy Nagy APRN Primary [...] on filedocumented in this encounter Care Teams Core Feeder Relationship Specialty Start Date End Date Yesy Nagy APRN [address] [place] [address] PCP - General Geriatric Medicine 08/02/22 documented as of this encounter
--- OUTSIDE RECORDS SUMMARY | 2024-09-30 08:58 | XMS_ITS | Encounter Summary ---
Author Organization [facility] [place] [address] Care Team Providers Care Oil Pumper Name Role Phone Yesy Nagy HAND EDGE BANDER Primary Care Provider [phone] Encounter Details Date Type Department Care Team (Late st Contact Info) Description 01/29/2023 [place] [address] Landy oMnson RN Social History Tobacco Use Types Packs/Day [...] Danica Taylor, [facility] Note: Judson Patel Jr. Is hoping to decrease his prednisone dosage and keep pain levels at a minimum. He is hoping that Actemra will be able to keep him walking since before prednisone he had a hard time standing up and walking around. documented as of this encounter Visit Diagnoses Not on filedocumented in this encounter Care Teams Oil Pumper Relationship Specialty Start Date End Date Yesy Nagy APRN [address] [place] [address] PCP - General Geriatric Medicine 08/02/22 documented as of this encounter
--- OUTSIDE RECORDS SUMMARY | 2024-09-30 08:58 | XMS_ITS | Encounter Summary ---
Author Organization [facility] Address [facility] [place] [address] Care Team Providers Care Tentering Machine Off Bearer Name Role Phone Yesy Nagy APRN Primary Care Provider [phone] Encounter Details Date Type Department Care Team (Late st Contact Info) Description 03/14/2023 [place] [address] Landy Monson RN Social History [...] [facility] Note: Judson Nagel Jorge Funk Is hoping to decrease his prednisone dosage and keep pain levels at a minimum. He is hoping that Actemra will be able to keep him walking since before prednisone he had a hard time standing up and walking around. documented as of this encounter Visit Diagnoses Not on filedocumented in this encounter Care Teams Tentering Machine Off Bearer Relationship Specialty Start Date End Date Yesy Nagy APRN [address] [place] [address] PCP - General Geriatric Medicine 08/02/22 documented as of this encounter
--- OUTSIDE RECORDS SUMMARY | 2024-09-30 08:58 | XMS_ITS | Encounter Summary ---
Author Organization [facility] Address [facility] [facility] [place] [address] Care Team Providers Care Rubber Attacher Name Role Phone Yesy Nagy APRN Primary Care Provider [phone]- [phone] Reason for Visit * Reason Comments Specialty Pharmacy Review Tocilizumab (A ctemra) Actpen 162mg/0.9mL Encounter Details Date Type Department Care Team (Late st Contact Info) Description 04/12/2023 Specialty Pharmacy Pharmacy at [facility] [place] [address] Yuliya Booker, [facility] Social History Tobacco Use Types [...] Booker - 04/12/2023 11:59 PM EDT The [facility] has completed a benefits investigation for Judson Patel Jr. to review their eligibility to fill at [facility]. Per patient's medication list they are prescribed Actemra and the medication is currently filled at the [facility]. documented in this encounter [...] on filedocumented in this encounter Care Teams Rubber Attacher Relationship Specialty Start Date End Date Yesy Nagy APRN [address] [place] [address] PCP - General Geriatric Medicine 08/02/22 documented as of this encounter
--- OUTSIDE RECORDS SUMMARY | 2024-09-30 08:58 | XMS_ITS | Encounter Summary ---
Author Organization [facility] Address [facility] [place] [address] Care Team Providers Care Flight Control Tower Operator Name Role Phone Yesy Nagy APRN Primary Care Provider Encounter Details Date Type Department Care Team (Late st Contact Info) Description 01/22/2023 Telephone [place] [phone] Ananya Payan DO [facility] [place]HEUMATOLOGY [place] [address] Social History Tobacco Use Types Packs/Day Years [...] 8mg prednisone daily - has appointment with [facility] neurology tomorrow. - Will recheck CRP ESR [...] Taylor, [facility] Note: Judson Nagel Jorge Cisse. Is hoping to decrease his prednisone dosage and keep pain levels at a minimum. He is hoping that Actemra will be able to keep him walking since before prednisone he had a hard time standing up and walking around. documented as of this encounter Visit Diagnoses Not on filedocumented in this encounter Care Teams Flight Control Tower Operator Relationship Specialty Start Date End Date Yesy Nagy APRN [address] [place] [address] PCP - General Geriatric Medicine 08/02/22 documented as of this encounter
--- OUTSIDE RECORDS SUMMARY | 2024-09-30 08:58 | XMS_ITS | Encounter Summary ---
Author Organization [facility] Address [facility] [place] [address] Care Team Providers Care End User Consultant Name Role Phone Yesy Nagy APRN Primary Care Provider [phone] Reason for Visit * Reason Comments Specialty Refill Management Encounter Details Date Type Department Care Team (Late st Contact Info) Description 04/17/2023 Specialty Pharmacy [place] [phone] Winifred Crisostomo RPH Social History Tobacco Use [...] Known Allergies Medication Reconciliation Discrepancies (compared to [facility] med list) No Specialty Pharmacy Refill Questionnaire [...] No Danica Taylor [facility] Note: Judsno Robe Patel Jr. Is hoping to decrease his prednisone dosage and keep pain levels at a minimum. He is hoping that Actemra will be able to keep him walking since before prednisone he had a hard time standing up and walking around. documented as of this encounter Visit Diagnoses Not on filedocumented in this encounter Care Teams End User Consultant Relationship Specialty Start Date End Date Yesy Nagy APRN [address] [place] [address] PCP - General Geriatric Medicine 08/02/22 documented as of this encounter
--- OUTSIDE RECORDS SUMMARY | 2024-09-30 08:58 | XMS_ITS | Encounter Summary ---
Author Organization [facility] [place] [address] Care Team Providers Care Carbonation Equipment Operator Name Role Phone Yesy Nagy APRN Primary Care Provider Encounter Details Date Type Department Care Team (Latest Contact Info) Description 02/26/2023 4:00 PM EDT TH Visit (TeleHealth) [place] [phone] Ananya Payan, [facility] [place] [address] GCA (giant cell arteritis); Immunosuppressed status; Medication [...] lipid profile, ESR, CRP- will send to [facility] -Continue Actemra weekly -Continue prednisone taper: [...] Dr. Joana Payan DO Rheumatology Fellow Pager: [phone] * Junior Bernard MD - 02/26/2023 4:00 PM EDT The patient's history was reviewed with Dr. Payan. History of present illness and diagnosis discussed. Chief complaint and review of systems reviewed. I agree with the summary, findings, diagnostic and therapeutic plans. Junior Bernard [place], [address] documented in this encounter Plan of Treatment [...] [facility] Cholesterol, Total 239 mg/dL [facility] Comment: Lower Risk: <200 mg/dL Average Risk: 200-239 mg/dL Higher Risk: >xa=573 mg/dL Triglyceride 191 mg/dL [facility] Comment: Average Risk/Lower Risk: <150 mg/dL Borderline High Risk: 150-199 mg/dL High Risk: 200-499 mg/dL Very High Risk: >jq=595 mg/dL HDL Cholesterol 51 mg/dL [facility] Comment: Males: ?? Higher Risk: <40 mg/dL Females: ?? Higher Risk: <50 mg/dL LDL Cholesterol 150 mg/dL [facility] Comment: Lowest Risk: <100 mg/dL Lower Risk: 100-129 mg/dL Borderline High Risk: 130-159 mg/dL High Risk: 160-189 mg/dL Very High Risk: >zm=943 mg/dL Cholesterol/HDL Ratio 4.7 ratio [facility] Lipid Interpretation See Note [facility] Comment: Lipid management should be guided by a patient? s ASCVD risk, goals and preferences. ACC/AHA Guidelines recommend high intensity statin if clinical ASCVD or LDL greater than or equal to 190 mg/dL. http://tinyurl.com/SNM-JWA-Yvhjffwdg Adults aged 40-75 with LDL 70-189 mg/dL should have their 10 year ASCVD risk estimated with the ACC/AHA ASCVD risk integration technician http://tools.acc.org/ODNNU-Otwe-Zaqcnduhw/ Statin should be discussed if risk greater [...] MD CHEMISTRY ORDERABLE S Performing Organization Address City/State/[facility] [place] [address] documented in this encounter Visit Diagnoses Diagnosis GCA (giant cell arteritis) Giant cell arteritis Immunosuppressed status Unspecified disorder of immune mechanism Medication monitoring encounter Encounter for therapeutic drug monitoring Hyperlipidemia, unspecified hyperlipidemia type documented in this encounter Care Teams Carbonation Equipment Operator Relationship Specialty Start Date End Date Yesy Nagy APRN [address] [place] [address] PCP - General Geriatric Medicine 08/02/22 documented as of this encounter
--- OUTSIDE RECORDS SUMMARY | 2024-09-30 08:58 | XMS_ITS | Encounter Summary ---
[place] [address] Care Team Providers Care Branner Machine Tender Name Role Phone Yesy Nagy APRN Primary Care Provider Encounter Details Date Type Department Care Team (Late st Contact Info) Description 12/15/2022 Orders [place] [phone] Ananya Payan, [facility] [address] GCA (giant cell arteritis) Social History Tobacco [...] [facility] Note: Judson Patel Jr. Is hoping [...] arteritis documented in this encounter Care Teams Branner Machine Tender Relationship Specialty Start Date End Date Yesy Nagy APRN [address] [place] [address] PCP - General Geriatric Medicine 08/02/22 documented as of this encounter
--- OUTSIDE RECORDS SUMMARY | 2024-09-30 08:58 | XMS_ITS | Encounter Summary ---
Author Organization [facility] Address [facility] [place] [address] Care Team Providers Care Rate Clerk Passenger Name Role Phone Yesy Nagy APRN Primary Care Provider [phone] Reason for Visit * Reason Comments Specialty Pharmacy Review Tocilizumab (A ctemra) 162 mg/0.9 mL Pen Injector Encounter Details Date Type Department Care Team (Late st Contact Info) Description 02/26/2023 Specialty [place] [address] Yuliya Booker, [facility] Social History Tobacco Use Types [...] Booker - 02/26/2023 11:59 PM EDT The [facility] has completed a benefits investigation for Judson Patel Jr. to review their eligibility to fill at [facility]. Per patient's medication list they are prescribed Tocilizumab (Actemra) and the medication is currently filled at the [facility]. documented in this encounter [...] on filedocumented in this encounter Care Teams Rate Clerk Passenger Relationship Specialty Start Date End Date Yesy Nagy APRN [address] [place] [address] PCP - General Geriatric Medicine 08/02/22 documented as of this encounter
--- OUTSIDE RECORDS SUMMARY | 2024-09-30 08:58 | XMS_ITS | Encounter Summary ---
Author Organization [facility] [place] [address] Care Team Providers Care Reimbursement Director Name Role Phone Yesy Nagy APRN Primary Care Provider Reason for Referral * Diagnostic Test (Routine) - Closed Specialty Diagnoses / Procedures Referred By Contac t Referred To Contact Radiology Diagnoses Gait instability Tremor Procedures NM Brain Imaging for Parkinsons Disease Srikanth Morris MD [facility] [place] [address] [place] [address] Referral ID Status Reason Start Date Expiration Date V isits Requested Visits Authorized [id number] Closed Specialty Service Requested 01/23/2023 07/23/2024 1 1 Reason for Visit * Diagnostic Test (Routine) - Closed Specialty Diagnoses / Procedures Referred By Contac t Referred To Contact Radiology Diagnoses Gait instability Tremor Procedures NM Brain Imaging for Parkinsons Disease Srikanth Morris MD [facility] [place] [address] [place] [address] Referral ID Status Reason Start Date Expiration Date V isits Requested Visits Authorized [id number] Closed Specialty Service Requested 01/23/2023 07/23/2024 1 1 Encounter Details Date Type Department Care Team (Latest Contact Info) Description 02/23/2023 8:23 AM EDT Hospital En[place] [address] Srikanth Morris MD [facility] [place] [address] Gait instability; Tremor Discharge Disposition: Home Social [...] (FISH OIL ORAL) Take by mouth. 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 Is hoping to decrease his [...] care that requested your imaging first. ? Narrative [...] Note Seth Guillen MD - 02/23/2023 EXAMINATION: GA BRAIN IMAGING FOR PARKINSONS DISEASE CLINICAL HISTORY: [...] child care that requested your imaging first. Srikanth Morris MD [facility] [place] ORDERABLES documented in this encounter Visit [...] mLs documented in this encounter Care Teams Reimbursement Director Relationship Specialty Start Date End Date Yesy Nagy APRN [address] [place] [address] PCP - General Geriatric Medicine 08/02/22 documented as of this encounter
--- OUTSIDE RECORDS SUMMARY | 2024-09-30 08:58 | XMS_ITS | Encounter Summary ---
Author Organization [facility] Address [facility] [place] [address] Care Team Providers Care Elementary School Counselor Name Role Phone Yesy Nagy APRN Primary Care Provider [phone]- [phone] Encounter Details Date Type Department Care Team (Latest Contact Info) Description 04/12/2023 1:00 PM EDT TH Visit (TeleHealth) [place] [phone] Ananya Payan, [facility] [place] [address] GCA (giant cell arteritis); Medication monitoring encounter [...] Dr. Keturah Payan DO Rheumatology Fellow Pager: [phone] * Stephen Payan MD - 04/12/2023 1:00 [...] [facility] Note: Judson Nagel Jorge Funk Is [...] monitoring documented in this encounter Care Teams Elementary School Counselor Relationship Specialty Start Date End Date Yesy Nagy APRN [address] [place] [address] PCP - General Geriatric Medicine 08/02/22 documented as of this encounter
--- OUTSIDE RECORDS SUMMARY | 2024-09-30 08:58 | XMS_ITS | Encounter Summary ---
Author Organization [facility] Address [facility] [place] [address] Care Team Providers Care Timber Sizer Operator Name Role Phone Yesy Nagy MALACHI Primary Care Provider [phone]- [phone] Encounter Details Date Type Department Care Team (Late st Contact Info) Description 05/16/2023 Telephone [place] [phone] Ananya Payan DO [facility] [address] Social History Tobacco Use Types Packs/Day Years [...] on filedocumented in this encounter Care Teams Timber Sizer Operator Relationship Specialty Start Date End Date Yesy Nagy APRN [address] [place] [address] PCP - General Geriatric Medicine 08/02/22 documented as of this encounter
--- OUTSIDE RECORDS SUMMARY | 2024-09-30 08:58 | XMS_ITS | Encounter Summary ---
Author Organization [facility] Address [facility] [place] [address] Care Team Providers Care Engineering Drafter Name Role Phone Yesy Nagy MALACHI Primary Care Provider [phone] Reason for Visit * Diagnostic Test (Routine) - Closed Specialty Diagnoses / Procedures Referred By Contac t Referred To Contact Radiology Diagnoses Gait instability Tremor Procedures NM Brain Imaging for Parkinsons Disease Srikanth Morris MD [facility] [place] [address] [place] [address] Referral ID Status Reason Start Date Expiration Date V isits Requested Visits Authorized [id number] Closed Specialty Service Requested 01/23/2023 07/23/2024 1 1 Encounter Details Date Type Department Care Team (Latest Contact Info) Description 02/23/2023 1:42 PM EDT - 02/23/2023 11:59 PM EDT Hospital Encounter [place] [address] Srikanth Morris MD [facility] [place] [address] Discharge Disposition: Home Social History [...] (FISH OIL ORAL) Take by mouth. Ascorbic Ykas-Dhhkqidyx-Pqy (Emergen-C) 1,000 mg Powder Effervescent in Packet [...] mg/0.9 mL Pen InjectorIndications: GCA (giant cell arteritis),correction current use of systemic steroids Inject 0.9 [...] Danica Taylor, [facility] Note: Judson Patle Jr. Is hoping to decrease his prednisone [...] who have questions please contact the health family day carer that requested your imaging first. ? Narrative [...] patients who have questions please contactthe health family day carer that requested your imaging first. Srikanth Morris MD [facility] ORDERABLES documented in this encounter Visit Diagnoses Not on filedocumented in this encounter Care Teams Engineering Drafter Relationship Specialty Start Date End Date Yesy Nagy APRN [address] [place] [address] PCP - General Geriatric Medicine 08/02/22 documented as of this encounter
--- OUTSIDE RECORDS SUMMARY | 2024-09-30 08:58 | XMS_ITS | Encounter Summary ---
Author Organization [facility] [address] Care Team Providers Care Ophthalmologist Name Role Phone Yesy Nagy APRN Primary Care Provider [phone]- [phone] Encounter Details Date Type Department Care Team (Late st Contact Info) Description 04/16/2023 [place] [address] Landy Monson RN Social History [...] discuss concerns. The patient is currently at [facility] ED as he has a piece of [...] are to the front and Right side hinduism. No concerns with swallowing,PND,Sinus Sx. o c/o SOB/FUNG. States he has an appt with Dr Schuyler DO on 04/24/2023? Nurse said this was with the Neurologist, not Elementary School Reading Teacher. The patient thought it was, but would [...] on filedocumented in this encounter Care Teams Ophthalmologist Relationship Specialty Start Date End Date Yesy Nagy APRN [address] [place] [address] PCP - General Geriatric Medicine 08/02/22 documented as of this encounter
--- OUTSIDE RECORDS SUMMARY | 2024-09-30 08:58 | XMS_ITS | Encounter Summary ---
Author Organization [facility] [place] [address] Care Team Providers Care Carton Forming Machine Operator Name Role Phone Yesy Nagy APRN Primary Care Provider [phone] Encounter Details Date Type Department Care Team (Late st Contact Info) Description 01/30/2023 [place] [phone] Danica Taylor, [facility] Social History Tobacco [...] on filedocumented in this encounter Care Teams Carton Forming Machine Operator Relationship Specialty Start Date End Date Yesy Nagy APRN [address] [place] [address] PCP - General Geriatric Medicine 08/02/22 documented as of this encounter
--- OUTSIDE RECORDS SUMMARY | 2024-09-30 08:58 | XMS_ITS | Encounter Summary ---
Author Organization [facility] Address [facility] [place] [address] Care Team Providers Care Assistant Branch Manager Name Role Phone Yesy Nagy APRN Primary Care Provider [phone] [phone] Reason for Visit * Reason Comments Medication Refill Medication Management Encounter Details Date Type Department Care Team (Late st Contact Info) Description 02/22/2023 Specialty [place] [address] Rico Garcia [facility] Social History Tobacco Use Types Packs/Day Years [...] this encounter Progress Notes * Rico Garcia [facility] - 02/22/2023 8:49 AM EDT Specialty Pharmacy Consultation; Rico Garcia [facility] Comprehensive Medication Management (CMM): Specialty Consult, Opt [...] consultation on Actemra for the treatment of GCA/MD. Medications, allergies, and medical conditions were reviewed [...] Facing Action Plan No Macqueen, Danica M, [facility] Note: Judson Robe Patel Jr. Is hoping [...] arteritis documented in this encounter Care Teams Assistant Branch Manager Relationship Specialty Start Date End Date Yesy Nagy APRN [address] [place] [address] PCP - General Geriatric Medicine 08/02/22 documented as of this encounter
--- OUTSIDE RECORDS SUMMARY | 2024-09-30 08:58 | XMS_ITS | Encounter Summary ---
Author Organization [facility] Address [facility] [place] [address] Care Team Providers Care Grain Farmworker Name Role Phone Yesy Nagy APRN Primary Care Provider +1- [phone] Reason for Referral * Diagnostic Test (Routine) - Closed Specialty Diagnoses / Procedures Referred By Contac t Referred To Contact Radiology Diagnoses Gait instability Tremor Procedures MRI Brain wo Contrast Greg Vivar MD [facility] [place] [address] [facility] [place] [address] Referral ID Status Reason Start Date Expiration Date V isits Requested Visits Authorized [id number] Closed Specialty Service Requested 01/23/2023 07/23/2024 1 1 * Physical Therapy (Routine) - Closed Specialty Diagnoses / Procedures Referred By Socrates pleitez Referred To Contact Diagnoses Gait instability [facility] [place] [address] Referral ID Status Reason Start Date Expiration Date V isits Requested Visits Authorized [id number] Closed Evaluate and Treat 01/23/2023 07/22/2023 12 12 * Diagnostic Test (Routine) - Closed Specialty Diagnoses / Procedures Referred By Contac t Referred To Contact Radiology Diagnoses Gait instability Tremor Procedures NM Brain Imaging for Parkinsons Disease Greg Vivar MD [facility] [place] [address] [facility] [place] [address] Referral ID Status Reason Start Date Expiration Date V isits Requested Visits Authorized [id number] Closed Specialty Service Requested 01/23/2023 07/23/2024 1 1 Encounter Details Date Type Department Care Team (Late st Contact Info) Description 01/23/2023 9:30 AM EST Office Visit Neurology at [place] [phone] Greg Vivar MD [facility] [place] [address] Gait instability; Tremor Social History Tobacco Use [...] - 01/23/2023 9:30 AM [place] [address] 01/23/2023 Patient name: Judson Patel Jr. Date of : 1950 Referring provider: Ananya Payan, [facility] [address] HISTORY REASON FOR REFERRAL/CHIEF COMPLAINT: Gait instability [...] for PMR/ GCA and has been on terminal operations manager steroids. Was seen in Neurology here in [...] found. 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 He stopped drinking alcohol after [...] OIL ORAL) Take by mouth. ??? Ascorbic Uyvm-Azchnnmqo-Wwu (Emergen-C) 1,000 mg Powder Effervescent in Packet [...] GENERAL THYROID: No results found for: TSH, S0YOLTE, FREET4, TT4, THYROIDAB, THGAB Folate Lab Results Component Value Date SFOLATE 18.4 06/09/2016 ESR Lab Results Component Value Date SEDRATE 60 (H) 08/08/2022 CRP Lab Results Component Value Date CRP 20.2 (H) 08/08/2022 B12 Lab Results Component Value Date ECAZEUUS21 458 08/08/2022 CKNo results found for: CK [...] U -- REFERENCE VALUE -- <1.0 (Negative) FISHER NET Ab, IgG, S <0.2 U -- REFERENCE VALUE -- <1.0 (Negative) Scl 70 Ab, IgG, S 7.6 H U -- REFERENCE VALUE -- <1.0 (Negative) Interpretation: Positive (>=1.0) Megan 1 Ab, IgG, S <0.2 U -- REFERENCE VALUE -- <1.0 (Negative) Test Performed by: [place] [id number] Aquatic Biologist: Stephen Caldera II, M.D., Ph.D. C3,C4, COMPLEMENTSNo [...] LDLCHOL, LDLDIRECT NIKKI 65No results found for: TSZ99PO ANTI GM1,ANTI SGPG, MAG@RESUFAST (MAGAUTOAB,SGPG,MAGWB,GM1AB)@ HEAVY METAL SCREENNo results found for: LEAD, ARSENIC METHYLMLONIC ACIDNo results found for: METHYLMAL IgA, IGG No results found for: IGA, IGG CSF PANEL Lab Results Component Value Date LYMEAB Neg 06/09/2016 PARANEOPLASTIC PANEL No results found for: PARANEOINTRP, ANNA1, ANNA2, ANNA3, AGNA1, PCA1, PCA2, PCATYPETR, AMPHIPHYSIN,OEBI7SFF, STRIATMSCLAB, CACHABPQTYPE, CACHABNTYPE, ACHRBINDAB, NEUROKCHAB, NMDARECEPTOR, SMR71LY THROMBOSIS HOMEOCYSTEINENo results found for: HOMOCYSTEINE THROMBOSIS PANELNo results found for: ACAIGM, P2QBCFIIDER FACTOR V LEIDEN No components found for: FACTORVLEIDEN PROTEIN C,SNo components found for: PROTEINC, PROTEINS ANTITHROMBIN IIINo components found for: ANTITHROMBINIII Miscellaneous Send outsNo results found for: KAROLINECSENDOUT MISCMAYO ASSESSMENT, PLAN & RECOMMENDATIONS ASSESSMENT: 72 Y M with a diagnosis of PMR/ GCA on terminal operations manager steroids, HTN h/o alcoholism peripheral neuropathy referred [...] Greg Vivar MD Department of Neurology [facility] documented in this encounter Miscellaneous Notes [...] who have questions please contact the health lawn care technician that requested your imaging first. ? Narrative [...] patients who have questions please contactthe health lawn care technician that requested your imaging first. Greg Vivar MD [facility] ORDERABLES * MRI Brain wo Contrast [...] who have questions please contact the health lawn care technician that requested your imaging first. ? Electronically signed by: Jack Srinivasan [facility] ([phone]), at 02/23/2023 5:06 PM Narrative 02/23/2023 5:06 [...] patients who have questions please contactthe health lawn care technician that requested your imaging first. Greg Vivar MD IM MRI ORDERABLES documented in this encounter Visit Diagnoses Diagnosis Gait instability Abnormality of gait Tremor Abnormal involuntary movements Gait instability Abnormality of gait Tremor Abnormal involuntary movements Gait instability Abnormality of gait Tremor Abnormal involuntary movements documented in this encounter Care Teams Grain Farmworker Relationship Specialty Start Date End Date Yesy Nagy APRN [address] [place] [address] PCP - General Geriatric Medicine 08/02/22 documented as of this encounter
--- OUTSIDE RECORDS SUMMARY | 2024-09-30 08:58 | XMS_ITS | Encounter Summary ---
Author Organization [facility] Address [facility] [place] [address] Care Team Providers Care Aerial Tram Operator Name Role Phone Yesy Nagy APRN Primary Care Provider Encounter Details Date Type Department Care Team (Late st Contact Info) Description 01/15/2023 [place] [phone] Dayna Paez, RN Social History [...] that I will have labs sent to [facility] to check his inflammatory marker and advisehim [...] Danica Taylor, [facility] Note: Judson Patel Jr. Is hoping to decrease his prednisone dosage and keep pain levels at a minimum. He is hoping that Actemra will be able to keep him walking since before prednisone he had a hard time standing up and walking around. documented as of this encounter Visit Diagnoses Not on filedocumented in this encounter Care Teams Aerial Tram Operator Relationship Specialty Start Date End Date Yesy Nagy APRN [address] [place], [place] [address] [place] [address] PCP - General Geriatric Medicine 08/02/22 documented as of this encounter
--- OUTSIDE RECORDS SUMMARY | 2024-09-30 08:58 | XMS_ITS | Encounter Summary ---
Author Organization [facility] Address [facility] [place] [address] Care Team Providers Care Hr Operations Advisor Name Role Phone Yesy Nagy APRN Primary Care Provider Encounter Details Date Type Department Care Team (Late st Contact Info) Description 01/15/2023 Orders [place] [phone] Ananya Payan, [facility] [place] [address] GCA (giant cell arteritis) Social History Tobacco [...] arteritis documented in this encounter Care Teams Hr Operations Advisor Relationship Specialty Start Date End Date Yesy Nagy APRN [address] [place] [address] PCP - General Geriatric Medicine 08/02/22 documented as of this encounter
--- OUTSIDE RECORDS SUMMARY | 2024-09-30 08:58 | XMS_ITS | Encounter Summary ---
[place] [address] Care Team Providers Care Food Operations Manager Name Role Phone Yesy Nagy APRN Primary Care Provider +1- [phone] Reason for Visit * Reason Comments Medication Management Encounter Details Date Type Department Care Team (Late st Contact Info) Description 05/11/2023 Specialty [place] [phone] Homa March RPH Social History Tobacco Use [...] (CMM) Judson Patel Jr. [address] [facility] [address] Telephone Information: Work Phone Not on file. [...] were made at the appointment and that [facility] isproviding recommendations (summary located at top of [...] filedocumented in this encounter Care Teams Food Operations Manager Relationship Specialty Start Date End Date Yesy Nagy APRN [address] [facility] [address] PCP - General Geriatric Medicine 08/02/22 documented as of this encounter
--- OUTSIDE RECORDS SUMMARY | 2024-09-30 08:59 | XMS_ITS | Encounter Summary ---
Author Organization [facility] [place] [address] Care Team Providers Care Corporate General Manager Name Role Phone Yesy Nagy APRN Primary Care Provider Encounter Details Date Type Department Care Team (Late st Contact Info) Description 11/22/2022 Telephone [place] [phone] Jennifer Hebert MA Social History [...] filedocumented in this encounter Care Teams Corporate General Manager Relationship Specialty Start Date End Date Yesy Nagy APRN [address] [place] [address] PCP - General Geriatric Medicine 08/02/22 documented as of this encounter
--- OUTSIDE RECORDS SUMMARY | 2024-09-30 08:59 | XMS_ITS | Encounter Summary ---
Author Organization [facility] [place] [address] Care Team Providers Care Reimbursement Auditor Name Role Phone Yesy Nagy APRN Primary Care Provider Encounter Details Date Type Department Care Team (Late st Contact Info) Description 08/09/2022 Orders [place] [phone] Ananya Payan, [facility] [place] [address] Social History Tobacco Use Types Packs/Day Years [...] on filedocumented in this encounter Care Teams Reimbursement Auditor Relationship Specialty Start Date End Date Yesy Nagy APRN [address] [place] [address] PCP - General Geriatric Medicine 08/02/22 documented as of this encounter
--- OUTSIDE RECORDS SUMMARY | 2024-09-30 08:59 | XMS_ITS | Encounter Summary ---
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 Labs were done at [facility], they were reviewed, ESR 33, CRP0.14. -For [...] Dr. Pamella Payan DO Rheumatology Fellow Pager: [phone] * Vianney Can MD - 10/24/2022 3:45 [...] Taylor, [facility] Note: Judson Nagel Jorge Cisse. Is [...] of gait PMR (polymyalgia rheumatica) Polymyalgia rheumatica [facility] current use of systemic steroids Encounter for long-term (current) use of steroids documented in this encounter Care Teams Ply Cutter Relationship Specialty Start Date End Date Yesy Nagy APRN [address] [place] [address] PCP - General Geriatric Medicine 08/02/22 documented as of this encounter
--- OUTSIDE RECORDS SUMMARY | 2024-09-30 08:59 | XMS_ITS | Encounter Summary ---
Author Organization [facility] Address [facility] [place] [address] Care Team Providers Care It Consulting Director Name Role Phone Yesy Nagy APRN Primary Care Provider +1- [phone] Encounter Details Date Type Department Care Team (Late st Contact Info) Description 08/27/2022 [place] [phone] Pravin Sethi MD [facility] [place] [address] Social History Tobacco Use Types Packs/Day Years [...] plan. Pravin Sethi MD Rheumatology Fellow Pager: [phone] documented in this encounter Plan of Treatment Not on file documented as of this encounter Visit Diagnoses Not on filedocumented in this encounter Care Teams It Consulting Director Relationship Specialty Start Date End Date Yesy Nagy APRN [address] [place] [address] PCP - General Geriatric Medicine 08/02/22 documented as of this encounter
--- OUTSIDE RECORDS SUMMARY | 2024-09-30 08:59 | XMS_ITS | Encounter Summary ---
Author Organization [facility] Address [facility] [place] [address] Care Team Providers Care Geologic Technician Name Role Phone Yesy Nagy APRN Primary Care Provider +1- [phone] Encounter Details Date Type Department Care Team (Late st Contact Info) Description 09/20/2022 Telephone [place] [phone] Ananya Payan DO [facility] [place] [address] Social History Tobacco Use Types Packs/Day Years [...] on filedocumented in this encounter Care Teams Geologic Technician Relationship Specialty Start Date End Date Yesy Nagy APRN [address] [place] [address] PCP - General Geriatric Medicine 08/02/22 documented as of this encounter
--- OUTSIDE RECORDS SUMMARY | 2024-09-30 08:59 | XMS_ITS | Encounter Summary ---
[place] [address] Care Team Providers Care Gas Engine Operator Generators Name Role Phone Yesy Nagy APRN Primary Care Provider +1- [phone] Reason for Referral * Consultation (Routine) - Closed Specialty Diagnoses / Procedures Referred By Contac t Referred To Contact Rheumatology Diagnoses GCA (giant cell arteritis) Yesy Nagy APRN [address] [place] [address] [facility] Rheumatology [address] [place] [phone] Referral ID Status Reason Start Date Expiration Date V isits Requested Visits Authorized [id number] Closed Consult, Test & Treat 08/02/2022 08/02/2023 6 6 Encounter Details Date Type Department Care Team (Latest Contact Info) Description 08/02/2022 Transcribe Orders eDH Incoming Referrals [phone] Yesy Nagy APRN [address] [place], [place] [address] GCA (giant cell arteritis) Social History Tobacco [...] arteritis documented in this encounter Care Teams Gas Engine Operator Generators Relationship Specialty Start Date End Date Yesy Nagy APRN [address] [place] [address] PCP - General Geriatric Medicine 08/02/22 documented as of this encounter
--- OUTSIDE RECORDS SUMMARY | 2024-09-30 08:59 | XMS_ITS | Encounter Summary ---
Author Organization [facility] Address [facility] [place] [address] Care Team Providers Care Bushwalking Guide Name Role Phone Unknown Primary Care Provider Unavailabl e Encounter Details Date Type Department Care Team (Late st Contact Info) Description 07/14/2022 Tele[place] [phone] Ananya Payan [facility] [place] [address] Social History Tobacco Use Types Packs/Day Years [...] Dr. Stephen Payan DO Rheumatology Fellow Pager: [phone] documented in this encounter Plan of Treatment Not on file documented as of this encounter Visit Diagnoses Not on filedocumented in this encounter Care Teams Bushwalking Guide Relationship Specialty Start Date End Date Unknown None PCP - General 05/31/21 08/01/22 documented as of this encounter
--- OUTSIDE RECORDS SUMMARY | 2024-09-30 08:59 | XMS_ITS | Encounter Summary ---
Author Organization [facility] Address [facility] [place] [address] Care Team Providers Care Raisin Washer Name Role Phone Yesy Nagy APRN Primary Care Provider +1- [phone] Encounter Details Date Type Department Care Team (Late st Contact Info) Description 09/14/2022 10:15 AM EDT Office [place] [phone] Ananya Payan, [facility] [place] [address] GCA (giant cell arteritis); Immunosuppressed status Social [...] prednisone -Patient reports he had labs on [facility] this week ROS (positives in bold): Gen: [...] pedal edema Labs/Studies: Reviewed. -Requested labs from [facility]. Assessment/Plan: 71-year-old male with past medical history [...] [facility] I did recommend an MRI/MRA of his brain due to history of disequilibrium to evaluate for a posterior circulation stroke and to evaluate temporal arteries on CTA. Patient declined due to cost. Currently is on 50 mg of prednisone. We will obtain lab work from [facility] to ensure inflammatory markers are low and plan to continue taper prednisone. -Patient has not started tocilizumab yet, discussed risk and benefits of the medication. Pharmacistwill show patient how to use it today, patient is agreeable to starting medication. -Recommended obtaining DEXA to evaluate for bone density. Order has been placed at last visit Plan -Requested inflammatory markers from [facility] -prednisone taper -40 mg X 1 week, [...] Dr. Neel Payan DO Rheumatology Fellow Pager: [phone] * Linda Shaikh DO - 09/14/2022 10:15 [...] mechanism documented in this encounter Care Teams Raisin Washer Relationship Specialty Start Date End Date Yesy Nagy APRN [address] [place] [address] PCP - General Geriatric Medicine 08/02/22 documented as of this encounter
--- OUTSIDE RECORDS SUMMARY | 2024-09-30 08:59 | XMS_ITS | Encounter Summary ---
Author Organization [facility] Address [facility] [place] [address] Care Team Providers Care Records And Information Manager Name Role Phone Yesy Nagy APRN Primary Care Provider Encounter Details Date Type Department Care Team (Late st Contact Info) Description 10/18/2022 Telephone [place] [address] Ananya Payan DO [facility] [place] [address] Social History Tobacco Use Types Packs/Day Years [...] pain. Ananya Payan DO Rheumatology Fellow Pager: [phone] documented in this encounter Plan of Treatment Not on file documented as of this encounter Goals Goal Patient Goal Type Associated Problems Recent Progress Patient-Stated? Author DH Self-Management Patient Facing Action Plan No Danica Taylor, [facility] Note: Judson Nagel Jorge Cisse. Is hoping to decrease his prednisone dosage and keep pain levels at a minimum. He is hoping that Actemra will be able to keep him walking since before prednisone he had a hard time standing up and walking around. documented as of this encounter Visit Diagnoses Not on filedocumented in this encounter Care Teams Records And Information Manager Relationship Specialty Start Date End Date Yesy Nagy APRN [address] [place] [address] PCP - General Geriatric Medicine 08/02/22 documented as of this encounter
--- OUTSIDE RECORDS SUMMARY | 2024-09-30 08:59 | XMS_ITS | Encounter Summary ---
Author Organization [facility] [place] [address] Care Team Providers Care Assessment Nurse Name Role Phone Ozzie Davis Primary Care Provider [phone]- [phone] Reason for Visit * Consultation (Routine) - Closed Specialty Diagnoses / Procedures Referred By Contaugustin t Referred To Contact Neurology Diagnoses shooting pain down the bilat arms and down to LLE, loss of balance and dizzy spells. Ozzie Davis PA [address] [place] [address] [facility] Neu[facility] [address] [place] [address] Referral ID Status Reason Start Date Expiration Date V isits Requested Visits Authorized [id number] Closed Consult, Test & Treat Connection Center 04/13/2016 04/13/2017 1 1 Encounter Details Date Type Department Care Team (Late st Contact Info) Description 06/09/2016 10:30 AM EDT [place] [phone] Sharlene Moore MD [facility] [place] [place] [address] Neuropathy Social History Tobacco Use Types Packs/Day [...] TSH nl ?elevated ITA He lives in [place], [place]. 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 3 children - healthy No recent travel Water from [place] (last tested 2006) Smoked 1 ppd for [...] KARAN AGUILAR MD PGY 4 Neurology Pager #[phone] I have seen the patient and reviewed [...] PM EDT Neuropathy HIV SCREEN, 4TH GENERATION ([facility]/CGP/APD/NLH) Routine 06/09/2016 12:38 PM EDT Neuropathy ANGIOTENSIN CONVERTING ENZYME Routine 06/09/2016 12:38 PM EDT Neuropathy ITA ANTIBODY SCREEN Routine 06/09/2016 1 2:38 PM EDT Neuropathy VITAMIN B6 Routine 06/09/2016 12:38 PM EDT Neuropathy PROTEIN ELECTROPHORESIS, SERUM Routine 06/09/2016 12:38 PM EDT Neuropathy FOLATE, SERUM Routine 06/09/2016 12:38 PM EDT Neuropathy documented in this encounter Results * IAT (06/09/2016 12:38 PM EDT) ITA Neg Neg [facility] Blood specimen (specimen) 06/09/2016 12:38 PM EDT 06/09/2016 1:47 PM EDT Narrative Resulting Agency Comment Spec In Lab Sharlene Moore MD LAB SEND OUT ORDERAB LES [facility] [place] [address] * (ABNORMAL) Extractable Nuclear Antigen (BEBO) Ab (06/09/2016 12:38 PM EDT) BEBO Ab Test ?Result ?Flag ??Unit ??RefValue Ab to Extractable Nuclear Ag Eval,S ??SS-A/Ro Ab, IgG, S ?<0.2 ?U -- REFERENCE VALUE -- <1.0 (Negative) ??SS-B/La Ab, IgG, S ?<0.2 ?U -- REFERENCE VALUE -- <1.0 (Negative) ??Sm Ab, IgG, S ? <0.2 ?U -- REFERENCE VALUE -- <1.0 (Negative) ??LEASING SPECIALIST Ab, IgG, S ?<0.2 ?U -- REFERENCE VALUE -- <1.0 (Negative) ??Scl 70 Ab, IgG, S ? 7.6 ?H ?U -- REFERENCE VALUE -- <1.0 (Negative) Interpretation: Positive (>=1.0) ??Megan 1 Ab, IgG, S ? <0.2 ?U -- REFERENCE VALUE -- <1.0 (Negative) Test Performed by: [facility] [place] [address] [place]rette: Stephen Caldera II, M.D., Ph.D. (A) [facility] Blood specimen (specimen) 06/09/2016 12:38 PM EDT 06/09/2016 2:47 PM EDT Narrative Resulting Agency Comment Spec In Lab Sharlene Moore MD LAB SEND OUT ORDERAB LES [facility] [place] [address] * HIV Screen, 4th Generation (06/09/2016 12:38 PM EDT) [facility] HIV Ab/Ag Screen Negative Negative [facility] Comment: This 4th Generation [...] Moore MD CHEMISTRY ORDERABLES Performing Organization Address [facility]/ZIP Co de Phone Number [facility] [place] [address] * Angiotensin Converting Enzyme (06/09/2016 12:38 PM EDT) [facility] [place] (MARCH) 11 8 - 53 unit/L [facility] Comment: Test Performed by: [place] [address] Butcherette: Stephen Caldera II, M.D., Ph.D. Blood specimen (specimen) 06/09/2016 12:38 PM EDT 06/09/2016 1:30 PM EDT Narrative Resulting Agency Comment Spec In Lab Sharlene Moore MD LAB SEND OUT ORDERAB LES [facility] [place] [address] * Folate, serum (06/09/2016 12:38 PM EDT) [facility] Folate 18.4 4.6 - 34.8 ng/mL [facility] Blood specimen (specimen) 06/09/2016 12:38 PM EDT 06/09/2016 12:46 PM EDT Narrative Resulting Agency Comment Spec In Lab Sharlene Moore MD CHEMISTRY ORDERABLES Performing Organization Address [facility]/ZIP Co de Phone Number [facility] [place] [address] * (ABNORMAL) Vitamin B6 (06/09/2016 12:38 PM EDT) [facility] Vitamin B6 (MARCH) 56(H) 5 - 50 mcg/L [facility] Comment: In this sample, the elevated pyridoxal 5-phosphate is likely related to dietary supplementation. Test Performed by: [facility] [place] [address] Butcherette: Mirtha Hall, Ph.D. Blood specimen (specimen) 06/09/2016 12:38 PM EDT 06/09/2016 1:06 PM EDT Narrative Resulting Agency Comment Spec In Lab Sharlene Moore MD LAB SEND OUT ORDERAB LES Performing Organization Address [facility] Co de Phone Number [facility] [place] [address] * Vitamin B1, whole blood (06/09/2016 12:38 PM EDT) [facility] Vit B1 Lvl Wb (MARCH) 146 70 - 180 nmol/L [facility] Comment: Test Performed by: [facility] [place] [address] Butcherette: Mirtha Hall, Ph.D. Blood specimen (specimen) 06/09/2016 12:38 PM EDT 06/09/2016 1:09 PM EDT Narrative Resulting Agency Comment Spec In Lab Sharlene Moore MD LAB SEND OUT ORDERAB LES Performing Organization Address [facility]/ZIP Co de Phone Number [facility] [place] [address] * Syphilis Antibody, IgG (06/09/2016 12:38 PM EDT) [facility] Syphilis IgG Neg Neg [facility] Blood specimen (specimen) 06/09/2016 12:38 PM EDT 06/10/2016 10:27 AM EDT Narrative Resulting Agency Comment Spec In Lab Sharlene Moore MD CHEMISTRY ORDERABLES Performing Organization Address [facility] Co de Phone Number [facility] [place] [address] * Lyme IgG & IgM Antibody (06/09/2016 12:38 PM EDT) Lyme Antibody Neg Neg [facility] Blood specimen (specimen) 06/09/2016 12:38 PM EDT 06/10/2016 10:27 AM EDT Narrative Resulting Agency Comment Spec In Lab Sharlene Moore MD IMMUNOLOGY ORDERABLE S Performing Organization Address City/[facility] Co de Phone Number [facility] [place] [address] * Protein Electrophoresis, serum (06/09/2016 12:38 PM EDT) Total Prot Electrophoresis 7.0 6.1 - 8.0 gm/dL [facility] Albumin Electrophoresis 4.42 3.60 - 6.00 gm/dL [facility] Alpha 1 Globulin 0.19 0.10 - 0.30 gm/dL [facility] Alpha 2 Globulin 0.85 0.40 - 0.90 gm/dL [facility] Beta Globulin 0.71 0.50 - 1.00 gm/dL [facility] Gamma Globulin 0.83 0.50 - 1.30 gm/dL [facility] M1 Band None Detected [facility] Blood specimen (specimen) 06/09/2016 12:38 PM EDT 06/09/2016 12:46 PM EDT Narrative Resulting Agency Comment Spec In Lab Sharlene Moore MD CHEMISTRY ORDERABLES [facility] [place] [address] documented in this encounter Visit Diagnoses Diagnosis Neuropathy Mononeuritis of unspecified site documented in this encounter Care Teams Assessment Nurse Relationship Specialty Start Date End Date Ozzie Davis PA [address] [place] [address] PCP - General General Internal Medicine 04/12/1605/30 documented as of this encounter
--- OUTSIDE RECORDS SUMMARY | 2024-09-30 08:59 | XMS_ITS | Encounter Summary ---
Author Organization [facility] [place] [address] Care Team Providers Care Data Analyst Report Writer Name Role Phone Yesy Nagy APRN Primary Care Provider [phone] Encounter Details Date Type Department Care Team (Late st Contact Info) Description 11/21/2022 Telephone [place] [address] Landy Monson RN Social History [...] -We will send labs ESR CRP to [facility]. Patient advised if he is unable to [...] filedocumented in this encounter Care Teams Data Analyst Report Writer Relationship Specialty Start Date End Date Yesy Nagy APRN [address] [place] [address] PCP - General Geriatric Medicine 08/02/22 documented as of this encounter
--- OUTSIDE RECORDS SUMMARY | 2024-09-30 08:59 | XMS_ITS | Encounter Summary ---
[place] [address] Care Team Providers Care Financial Assistant Name Role Phone Yesy Nagy APRN Primary Care Provider [phone] Encounter Details Date Type Department Care Team (Late st Contact Info) Description 09/13/2022 Tele[place] [address] Jennifer Hebert MA Social History [...] filedocumented in this encounter Care Teams Financial Assistant Relationship Specialty Start Date End Date Yesy Nagy APRN [address] [place] [address] PCP - General Geriatric Medicine 08/02/22 documented as of this encounter
--- OUTSIDE RECORDS SUMMARY | 2024-09-30 08:59 | XMS_ITS | Encounter Summary ---
Author Organization [facility] Address [facility] [place] [address] Care Team Providers Care Regional Engagement Consultant Name Role Phone Ozzie Davis Primary Care Provider Encounter Details Date Type Department Care Team (Late st Contact Info) Description 06/14/2016 External [place] [phone] Pedro Barreto MD [facility] [place] [address] Social History Tobacco Use Types Packs/Day Years [...] filedocumented in this encounter Care Teams Regional Engagement Consultant Relationship Specialty Start Date End Date Ozzie Davis PA [address] [place] [address] PCP - General General Internal Medicine 04/12/1605/30 documented as of this encounter
--- OUTSIDE RECORDS SUMMARY | 2024-09-30 08:59 | XMS_ITS | Encounter Summary ---
Author Organization [facility] [place] [address] Care Team Providers Care Fruit And Vegetable Inspector Name Role Phone YakovYesy MALACHI Primary Care Provider [phone] Reason for Visit * Reason Onset Date Comments Other 10/18/2022 Encounter Details Date Type Department Care Team (Late st Contact Info) Description 10/18/2022 Telephone [place] [phone] Dayna Paez RN Other Social History Tobacco [...] Payan. Yesy Yakov can be reached at [phone] Ananya Payan DO sent to Rafus, Mauna L, RN Caller: Unspecified (2 days ago, 11:28 AM) Spoke with patient - on Sunday can you request the lab results from ??[facility] office is closed will [...] on filedocumented in this encounter Care Teams Fruit And Vegetable Inspector Relationship Specialty Start Date End Date Yesy Nagy APRN [address] [place] [address] PCP - General Geriatric Medicine 08/02/22 documented as of this encounter
--- OUTSIDE RECORDS SUMMARY | 2024-09-30 08:59 | XMS_ITS | Encounter Summary ---
Author Organization [facility] [place] [address] Care Team Providers Care Security Dispatcher Name Role Phone Yesy Nagy APRN Primary Care Provider Encounter Details Date Type Department Care Team (Late st Contact Info) Description 11/01/2022 [place] [address] Landy Monson RN Social History [...] encounter Miscellaneous Notes * Telephone Encounter - Ladny Monson RN - 11/01/2022 2:52 PM EST [...] - 11/01/2022 2:03 PM EST Dusty, from [facility] Radiology calls today asking if the [...] Danica Taylor, [facility] Note: Judson Patel Jr. Is hoping to decrease his prednisone dosage and keep pain levels at a minimum. He is hoping that Actemra will be able to keep him walking since before prednisone he had a hard time standing up and walking around. documented as of this encounter Visit Diagnoses Not on filedocumented in this encounter Care Teams Security Dispatcher Relationship Specialty Start Date End Date Yesy Nagy APRN [address] [facility] [place] [place] [address] PCP - General Geriatric Medicine 08/02/22 documented as of this encounter
--- OUTSIDE RECORDS SUMMARY | 2024-09-30 08:59 | XMS_ITS | Encounter Summary ---
Author Organization [facility] [place] [address] Care Team Providers Care Aerial Installer Name Role Phone Yesy Nagy APRN Primary Care Provider Encounter Details Date Type Department Care Team (Late st Contact Info) Description 09/01/2022 Telephone [place] [phone] Ananya Payan, [facility] [place] [address] Social History Tobacco Use Types Packs/Day Years [...] to go to the ED by the admission liaison fellow, he called [phone], but by the [...] appointment. Ananya Payan DO Rheumatology Fellow Pager: [phone] documented in this encounter Plan of Treatment Not on file documented as of this encounter Visit Diagnoses Not on filedocumented in this encounter Care Teams Aerial Installer Relationship Specialty Start Date End Date Yesy Nagy APRN [address] [place] [address] PCP - General Geriatric Medicine 08/02/22 documented as of this encounter
--- OUTSIDE RECORDS SUMMARY | 2024-09-30 08:59 | XMS_ITS | Encounter Summary ---
Author Organization [facility] [place] [address] Care Team Providers Care Oil Process Stillman Name Role Phone Yesy Nagy APRN Primary Care Provider [phone] Reason for Visit * Reason Comments Prior Authorization Actemra Actpen 162 m g/0.9 ml SOAJ Encounter Details Date Type Department Care Team (Late st Contact Info) Description 08/30/2022 Specialty [place] [phone] Toro Kraft, [facility] Social History Tobacco Use Types Packs/Day Years [...] Patel Jr. Patient : 1950 Patient Address: [facility] [address] [place] [address] (home) Medication Name: ACTEMRA ACTPEN 162 MG/0.9 ML SUBCUTANEOUS PEN INJECTOR Medication ID: [id number] Subscriber Insurance: [employer] Medicare Subscriber Insurance Comment: Fax: Physician: JOSE F CAMERON Physician Comment: Sent Via: [facility] Carlson: [id number] Ref/Case/PA#: Medication Strength Frequency Requested: Actemra Actpen 162 mg/0.9 ml SOAJ Inject 162 mg (1 Pen) Subcutaneously Every 7 Days Qty/Day Supply: 03/23 New Start: New to Therapy Diagnosis & ICD-10 Code: GCA M31.6 Patient Notified: Yes Submission Notes: - New Medication Toro Kraft CPHT 08/30/22 12:35 PM * Toro Kraft CPHT - 08/30/2022 12:34 PM EDT [facility], Prior Authorization Approval Medication Name: ACTEMRA ACTPEN 162 MG/0.9 ML SUBCUTANEOUS PEN INJECTOR Medication ID: [id number] Approval Dates: 11/26/2021 to 11/25/2023 Insurance requirements/notes: - Patient May Fill With Pharmacy Other Notes: None Case/Reference #: [id number] Approval notification Received via: [facility] Copay: $4.00 Copay assistance: None Copay Notes: None Insurance mandated Pharmacy: [facility] Fillable at [facility] Special[facility] Pharmacy: Yes Pharmacy staff will be reaching out to the patient to inform them of their medication's approval [facility]. If applicable, a pharmacist will speak [...] filedocumented in this encounter Care Teams Oil Process Stillman Relationship Specialty Start Date End Date Yesy Nagy APRN [address] [place] [address] PCP - General Geriatric Medicine 08/02/22 documented as of this encounter
--- OUTSIDE RECORDS SUMMARY | 2024-09-30 08:59 | XMS_ITS | Encounter Summary ---
Author Organization [facility] Address [facility] [place] [address] Care Team Providers Care Bilingual Administrative Assistant Name Role Phone Yakov Yesy MALACHI Primary Care Provider [phone] Reason for Visit * Reason Comments Medication Management Encounter Details Date Type Department Care Team (Late st Contact Info) Description 10/04/2022 Specialty [place] [phone] Danica Taylor [facility] Social History Tobacco Use Types Packs/Day Years [...] this encounter Progress Notes * Danica Taylor [facility] - 10/04/2022 7:35 AM EST Clinical Management Plan: Transfer of Care/Discharge Specialty Services Specialty Pharmacy Consultation; Danica Taylor [facility] Comprehensive Medication Management (CMM) Judson Patel Jr. [address] [facility] [address] Telephone Information: Work Phone Not on file. [...] made at the appointment and that [facility] isproviding recommendations (summary located at top of [...] on filedocumented in this encounter Care Teams Bilingual Administrative Assistant Relationship Specialty Start Date End Date Yesy Nagy APRN [facility] [place] [address] PCP - General Geriatric Medicine 08/02/22 documented as of this encounter
--- OUTSIDE RECORDS SUMMARY | 2024-09-30 08:59 | XMS_ITS | Encounter Summary ---
Author Organization [facility] [place] [address] Care Team Providers Care Epic Kaleidoscope Analyst Name Role Phone Yesy Nagy APRN Primary Care Provider [phone] Reason for Referral * Consultation (Routine) - [...] to neurology for further evaluation. Ananya Payan, [facility] [address] [facility] [address] [place] [address] Referral ID Status Reason Start Date Expiration Date V isits Requested Visits Authorized [id number] Closed Consult, Test & Treat 08/25/2022 08/25/2023 1 1 Encounter Details Date Type Department Care Team (Late st Contact Info) Description 08/25/2022 [place] [phone] Ananya Payan [facility] [place] [address] Social History Tobacco Use Types Packs/Day Years [...] -Order MRI MRA of brain- sent to [facility] -Continue prednisone 60 mg daily until 08/30/2022 [...] systems documented in this encounter Care Teams Epic Kaleidoscope Analyst Relationship Specialty Start Date End Date Yesy Nagy APRN [address] [place] [address] PCP - General Geriatric Medicine 08/02/22 documented as of this encounter
--- OUTSIDE RECORDS SUMMARY | 2024-09-30 08:59 | XMS_ITS | Encounter Summary ---
Author Organization [facility] Address [facility] [place] [address] Care Team Providers Care Casing Tester Name Role Phone Unknown Primary Care Provider Unavailabl e Encounter Details Date Type Department Care Team (Late st Contact Info) Description 07/17/2022 Telephone [place] [phone] Brittni Hamilton Social History Tobacco Use Types [...] on filedocumented in this encounter Care Teams Casing Tester Relationship Specialty Start Date End Date Unknown None PCP - General 05/31/21 08/01/22 documented as of this encounter
--- OUTSIDE RECORDS SUMMARY | 2024-09-30 08:59 | XMS_ITS | Encounter Summary ---
[place] [address] Care Team Providers Care Surgical Rn Name Role Phone Yesy Nagy APRN Primary Care Provider Encounter Details Date Type Department Care Team (Late st Contact Info) Description 08/24/2022 Telephone [place] [address] Landy Monson RN Social History [...] on filedocumented in this encounter Care Teams Surgical Rn Relationship Specialty Start Date End Date Yesy Nagy APRN [address] [place] [address] PCP - General Geriatric Medicine 08/02/22 documented as of this encounter
--- OUTSIDE RECORDS SUMMARY | 2024-09-30 08:59 | XMS_ITS | Encounter Summary ---
Author Organization [facility] Address [facility] [place] [address] Care Team Providers Care Shield Runner Name Role Phone Yesy Nagy APRN Primary Care Provider [phone] Encounter Details Date Type Department Care Team (Late st Contact Info) Description 08/24/2022 [place] [address] Thony Dee MD [facility] [place] [address] Social History Tobacco Use Types Packs/Day Years [...] tomorrow. Thony Dee MD Rheumatology fellow Pager: [phone] documented in this encounter Plan of Treatment Not on file documented as of this encounter Visit Diagnoses Not on filedocumented in this encounter Care Teams Shield Runner Relationship Specialty Start Date End Date Yesy Nagy APRN [address] [place] [address] PCP - General Geriatric Medicine 08/02/22 documented as of this encounter
--- OUTSIDE RECORDS SUMMARY | 2024-09-30 08:59 | XMS_ITS | Encounter Summary ---
Author Organization [facility] Address [facility] [place] [address] Care Team Providers Care Mathematics Faculty Member Name Role Phone Yesy Nagy IDENTIFICATION CLERK Primary Care Provider Encounter Details Date Type Department Care Team (Late st Contact Info) Description 08/09/2022 Orders [place] [phone] Ananya Payan, [facility] [place] [address] GCA (giant cell arteritis); Immunosuppressed status Social [...] encounter Results * HIV Screen, 4th Generation [place] [place] (01/23/2023 9:59 AM EST) HIV Ab/Ag Screen Negative Negative [facility] Comment: This 4th Generation [...] HIV Comment Low Risk of HIV Infection [facility] Blood 01/23/2023 9:59 AM EST 01/23/2023 10:08 AM EST Narrative Resulting Agency Comment Spec In Lab Linda Beeew DO CHEMISTRY ORDERABL ES Performing Organization Address [facility] de Phone Number [facility] [place] [address] * Hepatitis B Surface Antigen (01/23/2023 9:59 AM EST) Hepatitis B Surface Antigen Negative Negative [facility] Blood 01/23/2023 9:59 AM EST 01/23/2023 10:08 AM EST Narrative Resulting Agency Comment Spec In Lab Linda Beeew DO CHEMISTRY ORDERABL ES Performing Organization Address [facility] Phone Number [facility] [place] [address] * Hepatitis B Surface Antibody (01/23/2023 9:59 AM EST) Hepatitis B Surface Antibody, Quantitative <3.5 IU/L [facility] Comment: HepB Surface Ab Quant: Unvaccinated: < 8.5 IU/L Vaccinated: >= 11.5 IU/L Hepatitis B Surface Antibody Negative [facility] Comment: Expected Results: Vaccinated: Positive Unvaccinated: Negative Patient is presumed to be not vaccinated or immune to HBV infection. Blood 01/23/2023 9:59 AM EST 01/23/2023 10:08 AM EST Narrative Resulting Agency Comment Spec In Lab Linda Shaikh DO CHEMISTRY ORDERABL ES Performing Organization Address [facility] Co de Phone Number [facility] [place] [address] * Hepatitis B Core Antibody, Total (01/23/2023 9:59 AM EST) Hepatitis B Core Antibody Negative Negative [facility] Blood 01/23/2023 9:59 AM EST 01/23/2023 10:08 AM EST Narrative Resulting Agency Comment Spec In Lab Linda Shaikh DO CHEMISTRY ORDERABL ES Performing Organization Address [facility] Co de Phone Number [facility] [place] [address] * Hepatitis C Antibody (01/23/2023 9:59 AM EST) Hepatitis C Antibody Negative Negative [facility] Blood 01/23/2023 9:59 AM EST 01/23/2023 10:08 AM EST Narrative Resulting Agency Comment Spec In Lab Linda Shaikh DO CHEMISTRY ORDERABL ES Performing Organization Address City/State/[facility] Co de Phone Number [facility] [place] [address] documented in this encounter Visit Diagnoses Diagnosis GCA (giant cell arteritis) Giant cell arteritis Immunosuppressed status Unspecified disorder of immune mechanism documented in this encounter Care Teams Mathematics Faculty Member Relationship Specialty Start Date End Date Yesy Nagy APRN [address] [place] [address] PCP - General Geriatric Medicine 08/02/22 documented as of this encounter
--- OUTSIDE RECORDS SUMMARY | 2024-09-30 08:59 | XMS_ITS | Encounter Summary ---
Author Organization [facility] [place] [address] Care Team Providers Care Pitting Machine Operator Name Role Phone Yesy Nagy APRN Primary Care Provider [phone] Encounter Details Date Type Department Care Team (Late st Contact Info) Description 08/09/2022 Telephone [place] [phone] Ananya Payan DO [facility] [place] [address] Social History Tobacco Use Types Packs/Day Years [...] in 1 week (will send labs to [facility]) IF inflammatory markers are normalized, will plan to start slowly tapering the prednisone. Plan for follow up in 1 month -Sep 14. 10:15 ( pt is going to check that he can get a ride that day, will call pt back tomorrow to confirm) . nAanya Payan DO Rheumatology Fellow Pager: [phone] documented in this encounter Plan of Treatment Scheduled Orders Name Type Priority Associated Diagnoses Orde r Schedule Sedimentation rate Lab Routine GCA (giant cell arteritis) Expected: 08/16/2022 (Approximate), Expires: 02/15/2023 documented as of this encounter Visit Diagnoses Diagnosis GCA (giant cell arteritis) Giant cell arteritis documented in this encounter Care Teams Pitting Machine Operator Relationship Specialty Start Date End Date Yesy Nagy APR[place] [place] [address] PCP - General Geriatric Medicine 08/02/22 documented as of this encounter
--- OUTSIDE RECORDS SUMMARY | 2024-09-30 08:59 | XMS_ITS | Encounter Summary ---
Author Organization [facility] Address [facility] [place] [address] Care Team Providers Care Cellophane Bag Machine Operator Name Role Phone Red Peoples MD Primary Care Provider Lindsay lopez Encounter Details Date Type Department Care Team (Latest Contact Info) Description 04/11/2016 - 04/11/2016 11:59 PM EDT Hospital Encounter Radiology Library at [facility] [place] [address] Pedro Barreto MD [facility] [place] [address] Pain Discharge Disposition: Home Social History Tobacco [...] Barreto MD IMG FILM LIBRARY ORD ERABLES [place], [place] documented in this encounter Visit Diagnoses Diagnosis Pain Generalized pain documented in this encounter Care Teams Cellophane Bag Machine Operator Relationship Specialty Start Date End Date Red Peoples MD [place] PCP - General 10/18/10 04/11/16 documented as of this encounter
--- OUTSIDE RECORDS SUMMARY | 2024-09-30 08:59 | XMS_ITS | Encounter Summary ---
Author Organization [facility] [place] [address] Care Team Providers Care Pattern Marker Name Role Phone Yesy Nagy MALACHI Primary Care Provider [phone] Reason for Visit * Reason Comments Medication Management Patient Education Encounter Details Date Type Department Care Team (Late st Contact Info) Description 09/14/2022 Specialty [place] [address] [facility] Social History Tobacco Use Types Packs/Day [...] Requirements: no Medication Reconciliation Discrepancies (compared to [facility] med list) -none Medication List: Current [...] OIL ORAL) Take by mouth. ??? Ascorbic Djlg-Tsytedczx-Gdf (Emergen-C) 1,000 mg Powder Effervescent in Packet [...] specialty services: Yes Patient accepted offer to deputy general counsel: select all, adherence/missed doses, cost of [...] to doctor discussed, reminder to refill or curing pickling packer medication discussed, self-monitoring discussed, start medication discussed, [...] Social Assessment: Does patient have a primary adult care manager: No Does patient have an emergency contact on file: Yes Does patient need referral to social media coordinator: No Does patient need referral to advocacy [...] symptoms of infection, signs and symptoms of OPERATIONS VOCATIONAL INSTRUCTOR demyelinating disorders Care Plan Reviewed and Approved by both Pharmacist and Patient: Yes Interventions (if applicable): No Pharmacist follow-up needed: Yes Patient understands no changes to current drug regimen were made at the appointment and that [facility] isproviding recommendations (summary located at top of note) for provider review and follow up. Danica Taylor RPH 09/14/22 11:11 AM documented in this encounter Plan of Treatment Not on file documented as of this encounter Goals Goal Patient Goal Type Associated Problems Recent Progress Patient-Stated? Author DH Self-Management Patient Facing Action Plan No Danica Taylor [facility] Note: Judson Patel Jr. Is hoping to decrease his prednisone dosage and keep pain levels at a minimum. He is hoping that Actemra will be able to keep him walking since before prednisone he had a hard time standing up and walking around. documented as of this encounter Visit Diagnoses Not on filedocumented in this encounter Care Teams Pattern Marker Relationship Specialty Start Date End Date Yesy Nagy APRN [address] [place] [address] PCP - General Geriatric Medicine 08/02/22 documented as of this encounter
--- OUTSIDE RECORDS SUMMARY | 2024-09-30 08:59 | XMS_ITS | Encounter Summary ---
Author Organization [facility] [place] [address] Care Team Providers Care Lean Specialist Name Role Phone Yesy Nagy APRN Primary Care Provider Encounter Details Date Type Department Care Team (Late st Contact Info) Description 11/21/2022 Telephone [place] [phone] Ananya Payan, [facility] [place] [address] Social History Tobacco Use Types Packs/Day Years [...] on filedocumented in this encounter Care Teams Lean Specialist Relationship Specialty Start Date End Date Yesy Nagy APRN [address] [place] [address] PCP - General Geriatric Medicine 08/02/22 documented as of this encounter
--- OUTSIDE RECORDS SUMMARY | 2024-09-30 08:59 | XMS_ITS | Encounter Summary ---
Author Organization [facility] Address [facility] [place] [address] Care Team Providers Care Servicing Rep Name Role Phone Ozzie Davis Primary Care Provider [phone] Encounter Details Date Type Department Care Team (Late st Contact Info) Description 06/14/2016 Telephone [place] [phone] Stephen Murray MD [facility] [place] [address] Social History Tobacco Use Types Packs/Day Years [...] on filedocumented in this encounter Care Teams Servicing Rep Relationship Specialty Start Date End Date Ozzie Davis PA [address] [place] [address] PCP - General General Internal Medicine 04/12/1605/30 documented as of this encounter
--- OUTSIDE RECORDS SUMMARY | 2024-09-30 08:59 | XMS_ITS | Encounter Summary ---
Author Organization [facility] [place] [address] Care Team Providers Care Laborer Chemical Processing Name Role Phone Ozzie Davis Primary Care Provider [phone] Reason for Referral * Consultation (Routine) - Closed Specialty Diagnoses / Procedures Referred By Contac t Referred To Contact Rheumatology Diagnoses Numbness Beau Cassidy MD [facility] [place] [address] [facility] Rheumatology [address] [place] [address] Referral ID Status Reason Start Date Expiration Date V isits Requested Visits Authorized [id number] Closed Consult, Test & Treat 06/14/2016 06/14/2017 1 1 Encounter Details Date Type Department Care Team (Late st Contact Info) Description 06/14/2016 [place] [address] Beau Cassidy MD [facility] [place] [address] Numbness Social History Tobacco Use Types Packs/Day [...] sensation documented in this encounter Care Teams Laborer Chemical Processing Relationship Specialty Start Date End Date Ozzie Davis PA [address] [place] [address] PCP - General General Internal Medicine 04/12/1605/30 documented as of this encounter
--- OUTSIDE RECORDS SUMMARY | 2024-09-30 08:59 | XMS_ITS | Encounter Summary ---
Author Organization [facility] Address [facility] [place] [address] Care Team Providers Care Director Life Sales Name Role Phone Yesy Nagy APRN Primary Care Provider [phone] Encounter Details Date Type Department Care Team (Late st Contact Info) Description 11/21/2022 Orders [place] [phone] Ananya Payan, [facility] [place] [address] GCA (giant cell arteritis) Social History Tobacco [...] documented in this encounter Care Teams Director Life Sales Relationship Specialty Start Date End Date Yesy Nagy APRN [address] [place] [address] PCP - General Geriatric Medicine 08/02/22 documented as of this encounter
--- OUTSIDE RECORDS SUMMARY | 2024-09-30 08:59 | XMS_ITS | Encounter Summary ---
Author Organization [facility] Address [facility] [place] [address] Care Team Providers Care Field Crop Technical Officer Name Role Phone Ozzie Davis Primary Care Provider [phone] Reason for Visit * Reason Onset Date Comments Other 06/14/2016 Encounter Details Date Type Department Care Team (Late st Contact Info) Description 06/14/2016 [place] [address] Pedro Barreto MD [facility] [place] [address] Other Social History Tobacco Use Types Packs/Day [...] filedocumented in this encounter Care Teams Field Crop Technical Officer Relationship Specialty Start Date End Date Ozzie Davis PA [address] [place] [address] PCP - General General Internal Medicine 04/12/1605/30 documented as of this encounter
--- OUTSIDE RECORDS SUMMARY | 2024-09-30 08:59 | XMS_ITS | Encounter Summary ---
Author Organization [facility] [place] [address] Care Team Providers Care Adhesion Tester Name Role Phone Yesy Nagy MALACHI Primary Care Provider Encounter Details Date Type Department Care Team (Late st Contact Info) Description 10/03/2022 Telephone [place] [address] Dayna Paez RN Social History [...] working on this for him. Danica Taylor, [facility] sent to Dayna Paez RN Cc: Ananya [...] Taylor, [facility] Note: Judson Patel Is hoping to decrease his prednisone dosage and keep pain levels at a minimum. He is hoping that Actemra will be able to keep him walking since before prednisone he had a hard time standing up and walking around. documented as of this encounter Visit Diagnoses Not on filedocumented in this encounter Care Teams Adhesion Tester Relationship Specialty Start Date End Date Yesy Nagy APRN [address] [place] [address] PCP - General Geriatric Medicine 08/02/22 documented as of this encounter
--- OUTSIDE RECORDS SUMMARY | 2024-09-30 08:59 | XMS_ITS | Encounter Summary ---
Author Organization [facility] [place] [address] Care Team Providers Care Actuarial Manager Name Role Phone Yesy Nagy APRN Primary Care Provider [phone] Encounter Details Date Type Department Care Team (Late st Contact Info) Description 08/31/2022 Telephone [place] [address] Landy Monson RN Social History [...] call back from his Provider Dr Schuyler MATHUR([facility]). When returned call patient asked to speak to MD please. Message sent to Provider to review. documented in this encounter Plan of Treatment Not on file documented as of this encounter Visit Diagnoses Not on filedocumented in this encounter Care Teams Actuarial Manager Relationship Specialty Start Date End Date Yesy Nagy APRN [address] [place] [address] PCP - General Geriatric Medicine 08/02/22 documented as of this encounter
--- OUTSIDE RECORDS SUMMARY | 2024-09-30 08:59 | XMS_ITS | Encounter Summary ---
Author Organization [place] [address] Care Team Providers Care Construction Secretary Name Role Phone Yesy Nagy APRN Primary Care Provider Encounter Details Date Type Department Care Team (Late st Contact Info) Description 08/30/2022 Refill [place] [phone] Ananya Payan DO [facility] [place] [address] Social History Tobacco Use Types Packs/Day Years [...] on filedocumented in this encounter Care Teams Construction Secretary Relationship Specialty Start Date End Date Yesy Nagy APRN [address] [place] [address] PCP - General Geriatric Medicine 08/02/22 documented as of this encounter
--- OUTSIDE RECORDS SUMMARY | 2024-09-30 08:59 | XMS_ITS | Encounter Summary ---
Author Organization [facility] [place] [address] Care Team Providers Care Shrimp Peeler Name Role Phone Yesy Nagy APRN Primary Care Provider [phone] Encounter Details Date Type Department Care Team [...] on filedocumented in this encounter Care Teams Shrimp Peeler Relationship Specialty Start Date End Date Yesy Nagy APRN [address] [place] [address] PCP - General Geriatric Medicine 08/02/22 documented as of this encounter
--- OUTSIDE RECORDS SUMMARY | 2024-09-30 08:59 | XMS_ITS | Encounter Summary ---
Author Organization [facility] Address [facility] [place] [address] Care Team Providers Care Extract Wringer Name Role Phone Yesy Nagy APRN Primary Care Provider [phone] Reason for Visit * Consultation (Routine) - Closed Specialty Diagnoses / Procedures Referred By Socrates pleitez Referred To Contact Rheumatology Diagnoses GCA (giant cell arteritis) Yesy Nagy APRN [address] [place] [address] [facility] [address] [place] [id number] Referral ID Status Reason Start Date Expiration Date V isits Requested Visits Authorized [id number] Closed Consult, Test & Treat 08/02/2022 08/02/2023 6 6 Encounter Details Date Type Department Care Team (Late st Contact Info) Description 08/08/2022 3:45 PM EDT Office [place] [address] Linda Shaikh, [facility] [place] [address] Ananya Payan, [facility] [place] [address] PMR (polymyalgia rheumatica); Osteoporosis, unspecified osteoporosis type, [...] a ride to be seen here at [facility] prefers to follow-up with his PCP ROS: [...] nerves II through XII intact, Romberg negative, [id number] normal [id number] normal resting tremor noted. Gait slightly unsteady [...] obtaining transportation to come to appointments at [facility]. Would prefer to follow with his PCP [...] 5:39 PM EDT) Neutrophil % 90.4 % [facility] Neutrophil Absolute 10.07(H) 1.70 - 6.10 x10(3)/mc L [facility] Lymph % 5.3 % [facility] Lymphocytes Abs 0.6(L) 0.9 - 3.2 x10(3)/mc L [facility] Monocyte % 3.1 % [facility] Monocyte Abs 0.4 0.3 - 0.9 x10(3)/mc L [facility] Eos % 0.0 % [facility] Eosinophils Abs 0.0 0.0 - 0.4 x10(3)/mc L [facility] Basophil % 0.2 % [facility] Baso Absolute 0.0 0.0 - 0.1 x10(3)/mc L [facility] Immature Gran % 1.00 % [facility] Comment: Immature granulocytes(IG's)percentage and absolute count will include metamyelocytes, myelocytes, and promyelocytes. Blood smears from CBCs yielding IG's will be scanned manually for concordance. If this scan disagrees with the automated IG or if promyelocytes are noted, a manual differential will be performed. Immature Gran Absolute 0.11(H) 0.00 - 0.04 x10(3)/mc L [facility] Blood 08/08/2022 5:39 PM EDT 08/08/2022 5:51 PM EDT Narrative Resulting Agency Comment Spec In Lab Ananya Payan DO HEMATOLOGY ORDERABLE S [facility] [place] [address] * (ABNORMAL) Hemogram (08/08/2022 5:39 PM EDT) White Blood Cell 11.1(H) 4.0 - 9.5 x10(3)/mc L [facility] Red Blood Cell 3.92(L) 4.58 - 5.54 x10(6)/mc L [facility] Hemoglobin 13.1(L) 13.7 - 16.5 g/dL [facility] Hematocrit 36.0(L) 40.5 - 48.5 % [facility] Mean Cell Volume 91.8 82.9 - 93.1 fL [facility] Mean Cell Hemoglobin 33.4(H) 27.5 - 32.1 pg [facility] Mean Cell Hemoglobin Concentration 36.4(H) 32.0 - 35.7 g/dL [facility] Platelet 273 145 - 357 x10(3)/mc L [facility] RDW Standard Deviation 47.6(H) 36.0 - 45.0 fL [facility] RDW coefficient of variation 14.1(H) 11.4 - 13.8 % [facility] Mean Platelet Volume 8.7 7.6 - 12.9 fL [facility] NRBC% auto 0.0 % [facility] NRBC Absolute 0.000 0.000 - 0.000 x10(3)/mc L [facility] Blood 08/08/2022 5:39 PM EDT 08/08/2022 5:51 PM EDT Narrative Resulting Agency Comment Spec In Lab Ananya Payan DO HEMATOLOGY ORDERABLE S Performing Organization Address [facility]/ZIP Co de Phone Number [facility] [place] [address] * (ABNORMAL) CRP, acute inflammation (08/08/2022 5:39 PM EDT) C-Reactive Protein 20.2(H) <=4.9 mg/L [facility] Blood 08/08/2022 5:39 PM EDT 08/08/2022 5:51 PM EDT Narrative Resulting Agency Comment Spec In Lab Linda Shaikh DO CHEMISTRY ORDERABL ES Performing Organization Address [facility] Co de Phone Number [facility] [place] [address] * (ABNORMAL) Sedimentation rate (08/08/2022 5:39 PM EDT) [facility] Sedimentation Rate Automated 60(H) 3 - 46 mm/hr [facility] Comment: Effective November 05, 2019 new capillary photometric technology has resulted in a change in reference ranges. It is recommended that each ESR result be reviewed with its own age appropriate reference range. Blood 08/08/2022 5:39 PM EDT 08/08/2022 5:51 PM EDT Narrative Resulting Agency Comment Spec In Lab Linda Shaikh DO HEMATOLOGY ORDERAB LES Performing Organization Address [facility] Co de Phone Number [facility] [place] [address] * (ABNORMAL) Comprehensive metabolic panel (non-fasting) (08/08/2022 5:39 PM EDT) Glucose 179 65 - 199 mg/dL [facility] Comment:Diabetes: >=200 mg/d L plus symptoms Blood Urea Nitrogen 18 10 - 20 mg/dL [facility] Creatinine 0.95 0.80 - 1.50 mg/dL [facility] Sodium 130(L) 135 - 145 mmol/L [facility] Potassium 4.1 3.5 - 5.0 mmol/L [facility] Comment: Please note: ??Patients with WBC >100,000 may have falsely elevated Potassium levels. ??For accurate Potassium quantification in these patients send serum separator tube (gold top) for subsequent determinations. ??Contact the Clinical Chemistry Laboratory if there are any questions. Chloride 94(L) 98 - 107 mmol/L [facility] Carbon Dioxide 24 22 - 31 mmol/L [facility] Anion Gap 12 5 - 15 mmol/L [facility] Calcium 8.9 8.5 - 10.5 mg/dL [facility] Protein, Total 7.1 6.1 - 8.0 g/dL [facility] Albumin 4.3 3.2 - 5.2 g/dL [facility] Aspartate Aminotransferase 18 0 - 39 unit/L [facility] Alanine Aminotransferase 23 0 - 55 unit/L [facility] Alkaline Phosphatase 71 40 - 130 unit/L [facility] Bilirubin, Total 0.5 0.2 - 1.3 mg/dL [facility] Est Glomerular Filtration Rate 85 >=60 mL/min/1. 73 m?? [facility] Comment: This patient's estimated [...] DO CHEMISTRY ORDERABL ES Performing Organization Address [facility] Co de Phone Number [facility] [place] [address] * (ABNORMAL) Protein Electrophoresis, serum (08/08/2022 5:39 PM EDT) Total Prot Electrophoresis 6.7 6.1 - 8.0 g/dL [facility] Albumin Electrophoresis 4.11 3.20 - 5.20 g/dL [facility] Alpha 1 Globulin 0.19 0.10 - 0.30 g/dL [facility] Alpha 2 Globulin 1.04(H) 0.40 - 0.90 g/dL [facility] Beta Globulin 0.71 0.50 - 1.00 g/dL [facility] Gamma Globulin 0.64 0.50 - 1.30 g/dL [facility] M1 Band None Detected None Detected [facility] Blood 08/08/2022 5:39 PM EDT 08/08/2022 5:51 PM EDT Narrative Resulting Agency Comment Spec In Lab Linda Shaikh DO CHEMISTRY ORDERABL ES Performing Organization Address [facility] Co de Phone Number [facility] [place] [address] * Vitamin B12 (08/08/2022 5:39 PM EDT) Vitamin B12 458 232 - 1,245 pg/mL [facility] Blood 08/08/2022 5:39 PM EDT 08/08/2022 5:51 PM EDT Narrative Resulting Agency Comment Spec In Lab Linda Shaikh DO CHEMISTRY ORDERABL ES Performing Organization Address [facility] [place] [address] documented in this encounter Visit Diagnoses Diagnosis PMR (polymyalgia rheumatica) Polymyalgia rheumatica Osteoporosis, unspecified osteoporosis type, unspecified pathological fracture presence documented in this encounter Care Teams Extract Wringer Relationship Specialty Start Date End Date Yesy Nagy APRN [address] [place] [address] PCP - General Geriatric Medicine 08/02/22 documented as of this encounter
--- OUTSIDE RECORDS SUMMARY | 2024-09-30 08:59 | XMS_ITS | Encounter Summary ---
Author Organization [facility] [place] [address] Care Team Providers Care Curriculum Counselor Name Role Phone Yesy Nagy APRN Primary Care Provider [phone] Reason for Visit * Reason Onset Date Comments Medication Problem 09/19/2022 Encounter Details Date Type Department Care Team (Late st Contact Info) Description 09/19/2022 Telephone [place] [address] Dayna Paez RN Medication Problem [...] RTC to Judson and he will contact [facility] in [place] and donate the medication next time he is down this way. Will keep refrigerated. documented in this encounter Plan of Treatment Not on file documented as of this encounter Goals Goal Patient Goal Type Associated Problems Recent Progress Patient-Stated? Author DH Self-Management Patient Facing Action Plan No Danica Taylor [facility] Note: Judson Patel Jr. Is hoping to decrease his prednisone dosage and keep pain levels at a minimum. He is hoping that Actemra will be able to keep him walking since before prednisone he had a hard time standing up and walking around. documented as of this encounter Visit Diagnoses Not on filedocumented in this encounter Care Teams Curriculum Counselor Relationship Specialty Start Date End Date Yesy Nagy APRN [address] [place] [id number] PCP - General Geriatric Medicine 08/02/22 documented as of this encounter
--- OUTSIDE RECORDS SUMMARY | 2024-09-30 08:59 | XMS_ITS | Encounter Summary ---
Author Organization [facility] Address [place] [address] Care Team Providers Care Banquet Director Name Role Phone Ozzie Davis Primary Care Provider [phone] Reason for Visit * Reason Comments Referral * Consultation (Routine) - Closed Specialty Diagnoses / Procedures Referred By Socrates pleitez Referred To Contact Rheumatology Diagnoses Numbness Beau Cassidy MD [facility] [place] [address] [facility] [address] [place] [address] Referral ID Status Reason Start Date Expiration Date V isits Requested Visits Authorized [id number] Closed Consult, Test & Treat 06/14/2016 06/14/2017 1 1 Encounter Details Date Type Department Care Team (Late st Contact Info) Description 06/21/2016 1:00 PM EDT Office [place] [address] Vianney Can MD [facility] 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 240 Limitations: The eAG calculation has not been validated on women, individuals below 18 years old and above 70 years old, and individuals with hemoglobinopathies. Additional resources are available on the ADA website: [email or web address].com/[facility] – MCALESTERadacalc Alejandro BRAGA, Dayana J, Jelly R, et al. ??Translating the A1C assay into estimated average glucose values. ??Diabetes Care 2008:31(8):7866-8506. Blood specimen (specimen) 06/21/2016 2:49 PM EDT 06/21/2016 3:02 PM EDT Narrative Resulting Agency Comment Spec In Lab Vianney Can MD CHEMISTRY ORDERABLES [facility] [place] [address] documented in this encounter Visit Diagnoses Diagnosis Peripheral polyneuropathy Unspecified hereditary and idiopathic peripheral neuropathy IFG (impaired fasting glucose) Impaired fasting glucose documented in this encounter Care Teams Banquet Director Relationship Specialty Start Date End Date Ozzie Davis PA [address] [place] [address] PCP - General General Internal Medicine 04/12/1605/30 documented as of this encounter
--- OUTSIDE RECORDS SUMMARY | 2024-09-30 08:59 | XMS_ITS | Encounter Summary ---
Author Organization [facility] [place] [address] Care Team Providers Care Media Coordinator Name Role Phone Yesy Nagy MALACHI Primary Care Provider [phone] Reason for Visit * Reason Comments Specialty Pharmacy Review Tocilizumab (A ctemra) 162 mg/0.9 mL Pen Injector Encounter Details Date Type Department Care Team (Late st Contact Info) Description 08/30/2022 Specialty [place] [address] Yuliya Booker, GIN CLERK Social History Tobacco Use Types Packs/Day Years [...] RPH - 08/30/2022 12:06 PM EDT The [facility] has completed a benefits investigation for Judson Patel Jr. to review their eligibility to fill at [facility]. Per patient's medication list they are prescribed Actemra and the medication is able to be filled at the [facility]. Judson Patel Jr. elects to fill with [facility] under current insurance plan's mandate. [...] on filedocumented in this encounter Care Teams Media Coordinator Relationship Specialty Start Date End Date Yesy Nagy APRN [address] [place] [address] PCP - General Geriatric Medicine 08/02/22 documented as of this encounter
--- OUTSIDE RECORDS SUMMARY | 2024-09-30 08:59 | XMS_ITS | Encounter Summary ---
Author Organization [facility] [place] [address] Care Team Providers Care Electrical Foreman Name Role Phone Yesy Nagy APRN Primary Care Provider [phone] Encounter Details Date Type Department Care Team (Late st Contact Info) Description 11/21/2022 Telephone [place] [id number] Ananya Payan, [facility] [place] [address] Social History Tobacco Use Types Packs/Day Years [...] on filedocumented in this encounter Care Teams Electrical Foreman Relationship Specialty Start Date End Date Yesy Nagy APRN [address] [place] [address] PCP - General Geriatric Medicine 08/02/22 documented as of this encounter
--- NOTE | 2024-09-30 09:00 | DI.CT_ITS ---
Exam(s) CT CHEST PE CTA EXAM: CT CHEST PE CTA CLINICAL HISTORY: recent covid, SOB, hypoxic, eval for PE. TECHNIQUE: Imaging Protocol: Axial CT angiography was performed with multi-slice acquisition and mu lti-planar and/or 3D reconstructions. Computer aided detection (CAD) was utilized. CONTRAST MATERIAL: Intravenous: Omnipaque 350 contrast volume:75 mL COMPARISON: CR XR PORTABLE CHEST AP from 09/25/2024 FINDINGS: Tracheobronchial tree: There is mild bronchial wall thickening predominantly involving the lower lobe s bilaterally. This may represent bronchitis. No bronchiectasis. Pulmonary parenchyma: No consolidation or dominant measurable mass. Atelectasis is seen in the lung b ases bilaterally. There is mild scarring seen in the lung apices bilaterally. Pulmonary Arteries: No evidence of filling defect to suggest pulmonary emboli. Mediastinum and Maria M: No dominant adenopathy or fluid collection. The esophagus is unremarkable. Visualized thyroid gland: Unremarkable. Pleura: No effusion or pneumothorax. Heart: The heart is not dilated. Three vessel coronary artery calcification is present. No pericardi al effusion. Aorta: Thoracic aorta non-dilated. Atherosclerotic calcification is present. Due to the timing of th e bolus, the thoracic aorta is not opacified. Upper abdomen: Unremarkable. Soft tissues: Unremarkable. Bones: Within normal limits for the patient's age. IMPRESSION: 1. There is no evidence of a pulmonary embolism or thoracic aortic aneurysm. 2. Mild bronchial wall thickening which can be seen with bronchitis. RADIATION DOSE DELIVERED: 76.08mGy.cm Total DLP DATA REPOSITORY: All CT scans at this facility are submitted to the National Radiology Data Registry (NRDR) Dose Index Registry (DIR) with the [employer] (A[employer]). RADIATION OPTIMIZATION: All CT scans at this facility use at least one of these dose optimization te chniques: automated exposure control; mA and/or kV adjustment per patient size (includes targeted exa ms where dose is matched to clinical indication); or iterative reconstruction.
--- NOTE | 2024-09-30 09:28 | ED.GENADUL_ITS ---
Discharge Plan Disposition Patient Disposition: Home Condition: Good Discharge Details Clinical Impression: Acute dyspnea Primary Care Provider: Yesy Nagy ED Provider: Harrison Wilkins Home Meds and New Rx's Prescriptions: No Action prednisone 5 mg tablet 5 mg PO DAILY Qty: 90 1RF amlodipine 2.5 mg tablet 2.5 mg PO HS MDD 5mg/24h Qty: 180 3RF Rx Instructions: Dose reduction 11/2023, but may increase to 5mg daily if BP not at goal <140/90 (DME) blood-glucose meter Kit See Rx Instructions .Route Qty: 1 0RF Rx Instructions: ONE TOUCH METER As directed to check blood glucose daily. No insulin. DX:E11.9 to maintain Hba1c <7% Jardiance 10 mg tablet 10 mg PO QAM Qty: 30 1RF Rx Instructions: Diabetes vitamin B complex [B Complex-Vitamin B12] Tablet 1 tab PO DAILY tamsulosin [Flomax] 0.4 mg capsule 0.8 mg PO DAILY Qty: 180 3RF Rx Instructions: Enlarged prostate; dose increase 03/29/2023 prednisone 2.5 mg tablet 2.5 mg PO DAILY aspirin 325 mg tablet 162.5 - 325 mg PO DAILY PRN calcium carbonate-vitamin D3 [Caltrate with Vitamin D3] 600 mg-20 mcg (800 unit) tablet 2 tab PO DAILY Qty: 180 3RF Rx Instructions: For bone health while on prednisone rosuvastatin 5 mg tablet 5 mg PO DAILY Qty: 90 3RF Rx Instructions: For cholesterol, steroid-induced diabetes (DME) blood sugar diagnostic Strip See Rx Instructions .Route Qty: 100 3RF Rx Instructions: One touch test strips to check blood glucose daily. no insulin. DX:E11.9 to maintain Hba1c <7% (DME) lancets Misc See Rx Instructions .Route Qty: 100 3RF Rx Instructions: E11.9 for daily monitoring for A1C <=7% One touch lancets methotrexate sodium 10 mg tablet 10 mg PO QWEEK folic acid 1 tab PO DAILY prednisone 1 mg tablet 1 mg PO DAILY MDD 7 mg daily Qty: 60 1RF Rx Instructions: Use with your 2.5 or 5 mg tablets to make 7 mg daily Discharge Instructions Instructions: Shortness of Breath, Adult ED Additional Instructions: At this time your laboratory workup is returned very normal. Your CAT scan shows no evidence of blood clot pneumonia or other significant abnormality. Your oxygen levels have been excellent while here. Please take the inhaler, 2 puffs every 12 hours for the next 1 to 2 weeks. If you notice any worsening of your symptoms, or any new symptoms such as vomiting, diarrhea, fever, chills, shortness of breath, chest pain, numbness, weakness, or fainting , please return immediately to the emergency department for reevaluation. Please follow up with your primary care provider as soon as possible for reassessment and reevaluation. As always, it was a pleasure participating in your medical care today. Referrals: Yesy Nagy NP [Primary Care Provider] - [facility] General Date/Time Provider Initiated Documentation: 09/30/24 08:43 . HPI Narrative: 73-year-old male with a past medical history of giant cell arteritis, recent COVID-19 just this past week, high cholesterol, methotrexate use, hypertension, polymyalgia rheumatica, tonsillectomy and appendectomy, presents today for evaluation of shortness of breath. Patient was just recently admitted on 09/25/2024. Atelectasis was noted in chest x-ray, COVID-19 was positive. Patient was started on a course of remdesivir and steroids. He tolerated his admission well and was discharged about 24 hours ago. At home throughout the evening he states that he was extremely short of breath, headache continued and worsened cough, and felt like he could not get any air throughout the night. Cough is productive with clear sputum. He denies any focal chest pain. He denies any history of PE or blood clots. He denies any cardiac history. He denies any hemoptysis. No other complaints at this time. Related Data Home Medications ?Medication ?Instructions ?Recorded ?Confirmed vitamin B complex (B 1 tab PO DAILY 05/06/21 09/30/24 Complex-Vitamin B12 tablet) amlodipine 2.5 mg tablet 2.5 mg PO HS #180 tabs 12/17/23 09/30/24 prednisone 5 mg tablet 5 mg PO DAILY #90 tabs 12/17/23 09/30/24 tamsulosin 0.4 mg capsule (Flomax) 0.8 mg (2 x 0.4 mg) PO DAILY #180 05/19/24 09/30/24 tab-caps blood sugar diagnostic #100 ea 06/09/24 09/29/24 lancets #100 ea 06/09/24 09/29/24 aspirin 325 mg tablet 162.5 - 325 mg PO DAILY PRN 06/26/24 09/30/24 calcium 600 mg (as 2 tab PO DAILY #180 tabs 06/26/24 09/30/24 carbonate)-vitamin D3 20 mcg (800 unit) tablet (Caltrate with Vitamin D3) prednisone 2.5 mg tablet 2.5 mg PO DAILY 06/26/24 09/30/24 rosuvastatin 5 mg tablet 5 mg PO DAILY #90 tabs 06/26/24 09/30/24 folic acid 1 tab PO DAILY 07/17/24 09/30/24 methotrexate sodium 10 mg tablet 10 mg PO QWEEK 07/17/24 09/30/24 prednisone 1 mg tablet 1 mg PO DAILY GCA #60 tabs 09/28/24 09/30/24 blood-glucose meter #1 ea 09/29/24 09/29/24 empagliflozin 10 mg tablet 10 mg PO QAM #30 tabs 09/29/24 09/30/24 (Jardiance) Previous Rx's ?Medication ?Instructions ?Recorded amlodipine 2.5 mg tablet 2.5 mg PO HS #180 tabs 12/17/23 prednisone 5 mg tablet 5 mg PO DAILY #90 tabs 12/17/23 tamsulosin 0.4 mg capsule (Flomax) 0.8 mg (2 x 0.4 mg) PO DAILY #180 05/19/24 tab-caps blood sugar diagnostic #100 ea 06/09/24 lancets #100 ea 06/09/24 calcium 600 mg (as 2 tab PO DAILY #180 tabs 06/26/24 carbonate)-vitamin D3 20 mcg (800 unit) tablet (Caltrate with Vitamin D3) rosuvastatin 5 mg tablet 5 mg PO DAILY #90 tabs 06/26/24 prednisone 1 mg tablet 1 mg PO DAILY GCA #60 tabs 09/28/24 blood-glucose meter #1 ea 09/29/24 empagliflozin 10 mg tablet 10 mg PO QAM #30 tabs 09/29/24 (Jardiance) Allergies Allergy/AdvReac Type Severity Reaction Status Date / Time amoxicillin (From Augmentin) AdvReac Intermediate vomiting, Verified 09/30/24 08:56 GI Upset atenolol AdvReac Intermediate off Verified 09/30/24 08:56 balance, dizzy clavulanic acid (From AdvReac Intermediate vomiting, Verified 09/30/24 08:56 Augmentin) GI Upset General Stated Complaint: SOB ASIM: 3 Review of Systems All systems reviewed & are unremarkable except as noted in HPI and below Exam Narrative Exam Narrative: 1.Const: Well-nourished, Well-developed, appearing stated age 2.Eyes: PERRL, no conjunctival injection, and symmetrical lids. 3.ENT: Atraumatic external nose and ears. Dry MM. Neck: Symmetric, trachea mi dline, No thyromegaly. 4.CVS: +S1/S2, Peripheral pulses 2+ and equal in all extremities. Brisk capillary refill in all extremities. 5.RESP: Rhonchorous breath sounds. No focal wheezes or rales though. 6.GI: Soft, Nontender/Nondistended, No hepatosplenomegaly. No guarding or rebound. 7.MSK: Normocephalic/Atraumatic, Extremities w/o deformity or ttp No cyanosis or clubbing, Normal movement of all extremities. No pitting edema or calf tenderness 8.Skin: Warm, Dry. No rashes or lesions. 9.Neuro: boat ride operator II-XII grossly intact. Sensation grossly intact, no focal neurologic deficits. 10.Psych: (AAO) x3. Appropriate mood and affect Course Vital Signs Vital signs: Vital Signs Temperature 36.1 C L 09/30/24 08:44 Pulse 102 H 09/30/24 08:44 Respiratory Rate 20 09/30/24 08:44 Blood Pressure 120/53 L 09/30/24 08:44 Pulse Oximetry 95 09/30/24 08:44 Temperature 36.1 C L 09/30/24 08:44 Temperature Source Oral 09/30/24 08:44 Pulse 102 H 09/30/24 08:44 Respiratory Rate 21 09/30/24 08:51 Respiratory Effort Short of Breath, Labored, Incrsd Work of Breathing 09/30/24 08:51 Respiratory Depth Shallow 09/30/24 08:51 Respiratory Pattern Tachypnea 09/30/24 08:51 Blood Pressure 120/53 L 09/30/24 08:44 Blood Pressure Position Sitting 09/30/24 08:44 Pulse Oximetry 95 09/30/24 08:44 Oxygen Delivery Method Room Air 09/30/24 08:44 Oxygen Flow Rate 0 09/30/24 08:44 Pain Level 0 09/30/24 08:44 Lab/Test Results Lab/Test Results: 09/30/24 09:05 Blood Blood Culture - Pending 09/30/24 09:05 Blood Blood Culture - Pending Medical Decision Making 73-year-old male with a past medical history of giant cell arteritis, recent COVID-19 just this past week, high cholesterol, methotrexate use, hypertension, polymyalgia rheumatica, tonsillectomy and appendectomy, presents today for evaluation of shortness of breath. Patient was just recently admitted on 09/25/2024. Atelectasis was noted in chest x-ray, COVID-19 was positive. Patient was started on a course of remdesivir and steroids. He tolerated his ad mission well and was discharged about 24 hours ago. At home throughout the evening he states that he was extremely short of breath, headache continued and worsened cough, and felt like he could not get any air throughout the night. Cough is productive with clear sputum. He denies any focal chest pain. He denies any history of PE or blood clots. He denies any cardiac history. He denies any hemoptysis. No other complaints at this time. He was placed on a 7- day prednisone taper after discharge. Physical exam demonstrates rhonchorous breath sounds. No focal wheezes or rales though. No pitting edema or calf tenderness. Patient's oxygen when he arrived was 88% and he felt notably dyspneic. At rest he is around 94 to 95%. Differential includes infectious pneumonia, PE, less likely CHF. We will evaluate for these etiologies, there is a potential for reactive airway component. We will give nebulizer, monitor closely and reassess. Cardiac etiology seems less likely. 9:40 AM EKG demonstrates right bundle branch block, which appears unchanged from prior EKG 11 AM Laboratory workup has returned, patient has a very mild white count, no bandemia. VBG demonstrates no respiratory acidosis. Electrolytes normal, creatinine 1.4 with a GFR of 52. Serial troponins are normal. Procalcitonin less than 0.1. COVID is still positive. CTA demonstrates no evidence of embolism, aneurysm, or pneumonia. Minimal bronchitis is present. After a breathing treatment patient felt significantly better. Patient was ambulated around the department and he had no hypoxemia. Oxygenation with ambulation remained around 93 to 95%. Patient tolerated this well. EKG shows no evidence of STEMI. At this point symptomatology and current clinical assessment does not show any evidence of acute life-threatening etiology, severe respiratory distress, cardiac dysrhythmia, hypoxemia or other abnormality. I do not think that there is an indication for admission or further treatment at this time. We will give a Symbicort inhaler for home use. We will recommend incentive spirometry at home which we will give him a device here. Patient feels comfortable with plan. Patient will be discharged home. Discussed red flags for which to return. I have extensively reviewed the treatment plan and discharge instructions with the patient. I have addressed all patient concerns at this time. The patient was made aware of what symptoms to monitor for that would warrant a return to the emergency department. Discussed the plan with the patient, they demonstrate verbal understanding and agreement with our assessment and plan at this time. The documentation in this chart was dictated using [employer] dictation software. Please excuse any dictation errors. FINDINGS: Tracheobronchial tree: There is mild bronchial wall thickening predominantly involving the lower lobes bilaterally. This may represent bronchitis. No bronchiectasis. Pulmonary parenchyma: No consolidation or dominant measurable mass. Atelectasis is seen in the lung bases bilaterally. There is mild scarring seen in the lung apices bilaterally. Pulmonary Arteries: No evidence of filling defect to suggest pulmonary emboli. Mediastinum and Maria M: No dominant adenopathy or fluid collection. The esophagus is unremarkable. Visualized thyroid gland: Unremarkable. Pleura: No effusion or pneumothorax. Heart: The heart is not dilated. Three vessel coronary artery calcification is present. No pericardial effusion. Aorta: Thoracic aorta non-dilated. Atherosclerotic calcification is present. Due to the timing of the bolus, the thoracic aorta is not opacified. Upper abdomen: Unremarkable. Soft tissues: Unremarkable. Bones: Within normal limits for the patient's age. IMPRESSION: 1. There is no evidence of a pulmonary embolism or thoracic aortic aneurysm. 2. Mild bronchial wall thickening which can be seen with bronchitis. Quality:SDOH Health Related Social Needs: Health related social needs housing instability, house d, with risk of homelessness(Z59.811), material hardship(utilities)(Z59.87), food i nsecurity(Z59.41), transportation insecurity(Z59.82) Health related social needs details living at homeless group home [facility] All Active Problems (Updated 09/30/24 @ 11:54 by Harrison Wilkins DO) Acute dyspnea (Acute) COVID-19 (Acute ~08/2023) 08/2024 GCA (giant cell arteritis) (Chronic ~11/2022) [facility] Endo--RX Actremra 01/2023; discontinued in favor of daily prednisone 7.5mg daily; switched to methotrexate 06/2024 Steroid-induced diabetes (Chronic ~09/2022) Medical History History of alcohol abuse (05/07/18) Nail dystrophy Onychomycosis Immunosuppressed status LT prednisone for GCA On prednisone therapy (~04/2022) Abnormal gait (~06/2022) Peripheral neuropathy + vestibular ([facility] Neuro 01/2023) Elevated lipoprotein A level (~12/2021) Declines statin Hyperlipidemia (~07/2021) Recommend statin 07/2021; [facility] Reynaldo Read obtained lipoprotein a, elevated--> cardiology recommends consider statin 01/2022 Family history of prostate cancer in father Also PGF Benign prostatic hyperplasia (05/13/18) RX Flomax Hypertension (05/07/18) Goal 135-145 (lower & he feels poor)--didn't tolerate Lisinopril Peripheral neuropathy (05/07/18) EtOH related; [facility] Neuro 2017 & 2022 Diverticulosis (~08/2023) Cataracts, both eyes [place] 07/24/24 not visually significant Anemia in CKD (chronic kidney disease) Anemia (~08/2022) Lightheadedness PMR (polymyalgia rheumatica) (~04/2022) Impaired fasting glucose (05/07/18) Monitor annual A1Cs; +fam hx DMT2 Candidal paronychia Elevated serum creatinine Left scapholunate ligament tear Fracture of distal end of left radius (10/26/22) Immunization refused (~02/2022) Tachycardia glass scullion stable--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 Seborrheic dermatitis of scalp Edema of lower extremity (05/07/18) Occurred x1, RX Furosemide and never reoccurred even off Furosemide Anxiety (05/07/18) Hepatomegaly (05/07/18) Resolved off EtOH Surgical History Tonsillectomy Appendectomy Family History Father , 73yo from metastatic prostate cancer Essential hypertension Heart disease Myocardial infarction Neoplasm Prostate Mother , early 70s diabetes complications Diabetes Paternal Grandfather , prostate cancer Neoplasm Prostate Social History Smoking/Tobacco Use Status: Former Tobacco Use Quit Date: 11/26/71 Smoking risk assessment performed?: Yes Alcohol Intake: current Alcohol Intake frequency: other Alcohol type: beer Drug use: Occasionally Substance use type: marijuana Household members: none Housing: homeless Number of Children: 3 Communication Needs: Corrective Lenses 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
[2024-09-30 09:33] LABS: BE (Venous) 4 mmol/L (-2-3); HCO3 (Venous) 28 mmol/L (23-28); O2 Sat (Venous) 77 %; TCO2 (Venous) 25 mmol/L (24-29); pCO2 (Venous) 40 mmHg (41-51); pH (Venous) 7.45 (7.31-7.41); pO2 (Venous) 40 mmHg
[2024-09-30 09:34] LABS: Abs Immature Grans 0.13 10^3/uL (0.0-0.06); Absolute Basophil Count 0.01 10^3/uL (0.0-0.2); Absolute Eosinophil Count 0.04 10^3/uL (0.0-0.7); Absolute Lymphocyte Count 2.73 10^3/uL (1.2-3.4); Basophils % 0.1 %; Eosinophils % 0.3 %; HCT 37.3 % (40.0-50.0); Immature Grans % 0.9 %; Lymphocytes % 19.9 %; MCH 31.5 pg (27.0-33.0); MCHC 34.9 % (32.0-36.0); MCV 90 fL (80-95); MPV 9.7 fL (8.0-11.0); Monocytes % 6.8 %; Platelet Count 247 10^3/uL (130-400); RBC 4.13 10^6/uL (4.36-5.78); RDW 12.8 % (11.8-14.1); RDW-SD 42.3 fL; WBC 13.73 10^3/uL (4.4-10.8)
[2024-09-30 09:35] LABS: Absolute Monocyte Count 0.93 10^3/uL (0.1-0.8); Absolute Neutrophil Count 9.89 10^3/uL (1.2-6.7); Lactate 2.1 mmol/L (0.6-1.4)
[2024-09-30] MEDS: Omnipaque 350 MG/ML 500 ML BTL-Imaging package IJ (09:44)
[2024-09-30] MEDS: Normal Saline - Diluent 50 ML VIAL IJ (09:45)
[2024-09-30 09:52] LABS: PTT Activated 24.7 sec (23.6-32.8); Prothrombin Time 10.4 sec (9.1-11.1)
[2024-09-30 10:09] LABS: ALT 22 U/L (16-63); AST 13 U/L (15-37); Albumin 3.1 g/dL (3.4-5.0); Alkaline Phosphatase 55 U/L (46-116); Anion Gap 7.7 mmol/L (3-11); BUN 25 mg/dL (7-18); Bilirubin, Total 0.54 mg/dL (0.2-1.0); CO2 28.3 mmol/L (21.0-32.0); CREATININE 1.4 mg/dL (0.70-1.30); Calcium 9.2 mg/dL (8.5-10.1); Chloride 103 mmol/L (98-107); Estimated GFR 52.41 (mL/min/1.73m2); Glucose 161 mg/dL (74-106); NT-proBNP 250 pg/mL (<300); Potassium 3.5 mmol/L (3.5-5.1); Sodium 139 mmol/L (136-145); Total Protein 6.6 g/dL (6.4-8.2); Troponin I 21 ng/L (<or=76)
[2024-09-30 10:13] LABS: Procalcitonin < 0.1 ng/mL
[2024-09-30] MEDS: Albuterol/Ipratropium 3 ML UPD VIAL UPD (10:23)
[2024-09-30 11:12] LABS: Troponin I 20 ng/L (<or=76)
[2024-09-30 11:44] LABS: Influenza A PCR Negative (Negative); Influenza B PCR Negative (Negative); RSV PCR Negative (Negative)
[2024-09-30 11:48] LABS: Source Nasopharynx
[2024-09-30 11:53] LABS: COVID-19 PCR Positive (Negative)
[2024-09-30] MEDS: Budesonide/Formoterol 160/4.5 6 GM 60 PUFF INH IH (13:26)
== END 2024-09-30 13:17 | disposition home or self-care (01) ==
PROVIDERS: Emergency Provider Student in an Organized Health Care Education/Training Program; PCP Nurse Practitioner Adult Health
DX: R06.09 Other forms of dyspnea (principal); I45.2 Bifascicular block; E78.5 Hyperlipidemia, unspecified; M31.5 Giant cell arteritis with polymyalgia rheumatica; Z79.631 Long term (current) use of antimetabolite agent; Z87.891 Personal history of nicotine dependence
CPT/HCPCS: 71275; 80053; 82805; 84145; 87040; 87637; 93005; 94640; 99285; 83605; 83880; 84484; 85025; 85610; 85730; 93010; 99284; J7620

== ENCOUNTER 2024-10-02 19:13 | Emergency (ER) | payer MEDICARE, MEDICAID, SELFPAY ==
[2024-10-02] VITALS (25 sets, daily range): BP systolic 123–160; BP diastolic 62–80; PULSE 85–115; RESP 13–34; TEMP 36.3–37.2; O2SAT 93–96
--- NOTE | 2024-10-02 19:00 | RT.EKG_ITS ---
APPROVED REPORT Exam: Resting ECG Reason for Exam: dizzy, short of breath Patient Location: E HR:115 bpm ECG Measurements Heart Rate 115 AXIS RI 142 P 77 QRSd 118 QRS -75 QT 326 T 10 QTc 452 Conclusion Sinus tachycardia, rate 115 RBBB No interval abnormalities No STEMI
--- NOTE | 2024-10-02 19:15 | DI.CT_ITS ---
Exam(s) CT BRAIN NECK CTA EXAM: CT BRAIN NECK CTA CLINICAL HISTORY: Dizziness, poor balance. TECHNIQUE: Imaging Protocol: Axial CT angiography was performed with multi-slice acquisition and mu lti-planar and/or 3D reconstructions. CONTRAST MATERIAL: Intravenous: Omnipaque 350 contrast volume:70 mL COMPARISON: CT CT HEAD WO from 08/29/2024 FINDINGS: CT Head W/O and W: Ventricles and Extra axial spaces: Normal in size and morphology for the patient's age. Hemorrhage: None. Cerebral parenchyma: There are areas of decreased attenuation in the white matter most consistent wit h chronic microvascular ischemic disease. No acute territorial infarct. No mass effect. Midline shift: None. Brainstem/Cerebellum: Normal. Calvarium: Normal. Visualized Paranasal sinuses/Mastoids: There is opacification of portions of the right mastoid air ce lls. There is also opacification of several ethmoid air cells. The remaining visualized paranasal s inuses are clear. No air-fluid levels are seen. Soft Tissues: Unremarkable. Enhancement: Unremarkable. CTA Neck W: Common Carotid: Right: No dissection, occlusion or significant stenosis. Atherosclerotic calcification in the distal common carotid artery. Left: No dissection or occlusion. Atherosclerotic calcification seen in the carotid bulb with 70 na rrowing. External Carotid: Right: No occlusion or significant stenosis. Atherosclerotic calcification at the origin. Left: No occlusion or significant stenosis. Internal Carotid: Right: No dissection, occlusion or significant stenosis. Mild atherosclerotic calcification at the o rigin of the right internal carotid artery. Left: No dissection, occlusion or significant stenosis. Atherosclerotic calcification of the origin of the left internal carotid artery. Vertebral Artery: Right: No dissection, occlusion or significant stenosis. Atherosclerotic calcification at the origin without significant stenosis. Left: No dissection, occlusion or significant stenosis. Atherosclerotic calcification at the origin without significant stenosis. Lung Apices: Mild centrilobular emphysematous changes are present. No focal infiltrates are seen. Bones: Within normal limits for the patient's age. Soft Tissues: Normal. Thyroid gland: Unremarkable. CTA Brain W: Internal Carotid Arteries: Atherosclerotic calcification without significant stenosis. No evidence o f an aneurysm or occlusion. Anterior Cerebral Arteries: Right: No aneurysm, occlusion or significant stenosis. Left: No aneurysm, occlusion or significant stenosis. Middle Cerebral Arteries: Right: No aneurysm, occlusion or significant stenosis. Left: No aneurysm, occlusion or significant stenosis. Posterior Cerebral Arteries: Right: No aneurysm, occlusion or significant stenosis. Left: No aneurysm, occlusion or significant stenosis. Vertebral Arteries: Right: No aneurysm, occlusion or significant stenosis. Left: No aneurysm, occlusion or significant stenosis. Basilar Artery: No aneurysm, occlusion or significant stenosis. IMPRESSION: 1. No large vessel occlusion or significant stenosis on the CT angiography of the head. 2. No acute intracranial process. 3. Age-related cerebral atrophy and chronic microvascular ischemic disease. 4. Atherosclerotic calcifications seen in the left carotid bulb resulting in 70 percent stenosis. RADIATION DOSE DELIVERED: 2,119mGy.cm Total DLP DATA REPOSITORY: All CT scans at this facility are submitted to the National Radiology Data Registry (NRDR) Dose Index Registry (DIR) with the [place] [employer] (ACR). RADIATION OPTIMIZATION: All CT scans at this facility use at least one of these dose optimization te chniques: automated exposure control; mA and/or kV adjustment per patient size (includes targeted exa ms where dose is matched to clinical indication); or iterative reconstruction.
--- NOTE | 2024-10-02 19:15 | DI.RAD_ITS ---
Exam(s) XR CHEST 2V PA LATERAL EXAM: XR CHEST 2V PA LATERAL CLINICAL HISTORY: Cough, SOB TECHNIQUE: 2D digital imaging was performed of the chest. Two images were obtained. PA and lateral views were obtained. COMPARISON: CR XR PORTABLE CHEST AP from 09/25/2024 FINDINGS: MEDIASTINUM: Normal. HEART: Normal. PULMONARY VASCULATURE: Normal. LUNGS: No focal consolidating infiltrates. PLEURAL SPACE: No pleural effusion or pneumothorax. BONE:Within normal limits for the patient's age. OTHER FINDINGS:Normal. IMPRESSION: No acute pulmonary findings. DATA REPOSITORY: RADIATION DOSE DELIVERED:
--- OUTSIDE RECORDS SUMMARY | 2024-10-02 19:28 | XMS_ITS | Encounter Summary ---
Author Organization [facility] Address [facility] [place] [address] Care Team Providers Care Commercial Marketing Specialist Name Role Phone Yesy Nagy APRN Primary Care Provider [phone] Reason for Visit * Reason Onset Date Comments Medication Refill 05/27/2024 Encounter Details Date Type Department Care Team (Late st Contact Info) Description 05/27/2024 Refill Rheumatology at [facility] [place] [address] Ananya Payan DO [facility] [address] GCA (giant cell arteritis); PMR (polymyalgia rheumatica) [...] in medication list. PHARMACY NAME:[facility] [place], [place] - [address] [place] [address] P: [phone] PHARMACY PHONE: [phone] Would patient like script sent directly to pharmacy? (Yes or no) yes Would patient like to orange picker machine operator paper script here at our office (Please put yes or no) no Would patient like paper script mailed to home address (Please put yes or no) no Patient will be out of medication tomorrow and would like to orange picker machine operator Caller/Patient aware of 1-2 business day process. documented in this encounter Plan of Treatment Not on file documented as of this encounter Goals Goal Patient Goal Type Associated Problems Recent Progress Patient-Stated? Author DH Self-Management Patient Facing Action Plan No Danica Taylor, [facility] Note: Judson Robe Patel Jr. [...] rheumatica documented in this encounter Care Teams Commercial Marketing Specialist Relationship Specialty Start Date End Date Yesy Nagy APRN [address] [place] [address] PCP - General Geriatric Medicine 08/02/22 documented as of this encounter
--- OUTSIDE RECORDS SUMMARY | 2024-10-02 19:28 | XMS_ITS | Encounter Summary ---
Author Organization [facility] Address [address] [place] [address] Care Team Providers Care Suture Gauger Name Role Phone Unknown, Provider MD Primary Care Provider Unava ilable Unknown, Provider MD Unavailable Unavailable Encounter Details Date Type Department Care Team (Late st Contact Info) Description 02/06/2022 Lab Requisition [facility] Pathology & Laboratory Medicine - [address] [address] Outr Resulting Lab, Provider Social History Tobacco [...] 0.0 - 6.5 ng/mL 02/06/2022 18:58 EDT [facility] Blood VENOUS BLOOD / Unknown 02/06/2022 10:34 EDT 02/06/2022 17:03 EDT Narrative [facility] - 02/06/2022 18:58 EDT NOTE: Serum PSA concentration should not be interpreted as absolute evidence for the presence or absence of malignant disease. Assayed on [employer] XPT using chemiluminescent technology.??Values obtained by using different assay methods cannot be used interchangeably. Provider Outr Resulting Lab CHEMISTRY & BLOOD GAS ORDERABLES [facility] [address] [place] [address] documented in this encounter Visit Diagnoses Not on filedocumented in this encounter Care Teams Suture Gauger Relationship Specialty Start Date End Date Unknown, Provider, PCP - General 11/10/15 Unknown, ProviderMD 11/10/15 documented as of this encounter
--- OUTSIDE RECORDS SUMMARY | 2024-10-02 19:28 | XMS_ITS | Encounter Summary ---
[place] [address] Care Team Providers Care Baby Registry Sales Consultant Name Role Phone Yesy Nagy APRN Primary Care Provider [phone] Encounter Details Date Type Department Care Team (Late st Contact Info) Description 07/14/2024 [place] [address] Dayna Paez RN Social History [...] - 07/14/2024 1:09 PM EDT Copied from [facility] #[id number]. Topic: Specialty Dept CRMs - Generic Call >> Jul 14, 2024 12:59 PM Mirtha Chavez wrote: Specialist: Rheumatology Relationship (if other than patient-full name): Shaunna Urena Drug Reason for Call: Shaunna states they received 4 prescriptions written by Obdulia Coleman MD and that this provider is not covered by [place] Medicaid, so they will need a different [...] on filedocumented in this encounter Care Teams Baby Registry Sales Consultant Relationship Specialty Start Date End Date Yesy Nagy APRN [address] [place] [address] PCP - General Geriatric Medicine 08/02/22 documented as of this encounter
--- OUTSIDE RECORDS SUMMARY | 2024-10-02 19:28 | XMS_ITS | Encounter Summary ---
Author Organization [facility] [address] Care Team Providers Care Structural Shop Helper Name Role Phone Yeys Nagy APRN Primary Care Provider [phone] Encounter Details Date Type Department Care Team (Late st Contact Info) Description 07/19/2023 [place]phone [place] [address] Dayna Paez, RN Social History [...] 07/19/2023 3:59 PM EDT Copied from [facility] #[id number]. Topic: Specialty Dept CRMs - Generic Call [...] Danica Taylor, [facility] Note: Judson Robe Patel Jr. Is hoping to decrease his prednisone dosage and keep pain levels at a minimum. He is hoping that Actemra will be able to keep him walking since before prednisone he had a hard time standing up and walking around. documented as of this encounter Visit Diagnoses Not on filedocumented in this encounter Care Teams Structural Shop Helper Relationship Specialty Start Date End Date Yesy Nagy APRN [address] [facility] [place] [address] PCP - General Geriatric Medicine 08/02/22 documented as of this encounter
--- OUTSIDE RECORDS SUMMARY | 2024-10-02 19:28 | XMS_ITS | Encounter Summary ---
Author Organization [facility] [place] [address] Care Team Providers Care Reinforcing Steel Worker Name Role Phone Yesy Nagy APRN Primary Care Provider [phone] Reason for Visit * Reason Onset Date Comments Follow-up 06/21/2023 Encounter Details Date Type Department Care Team (Late st Contact Info) Description 06/21/2023 [place] [address] Dayna Paez, RN Follow-up Social [...] Miscellaneous Notes * Telephone Encounter - Dayna Paez, RN - 06/21/2023 3:08 PM EDT Copied from [facility] #[id number]. Topic: Specialty Dept CRMs - Triage >> [...] his finger joints. Reports decreased mobility. Reports Flooring Professional told him he has dry eye and [...] [facility] Note: Judson Patel . Is hoping to decrease his prednisone dosage and keep pain levels at a minimum. He is hoping that Actemra will be able to keep him walking since before prednisone he had a hard time standing up and walking around. documented as of this encounter Visit Diagnoses Not on filedocumented in this encounter Care Teams Reinforcing Steel Worker Relationship Specialty Start Date End Date Yesy Nagy APRN [address] [place] [address] PCP - General Geriatric Medicine 08/02/22 documented as of this encounter
--- OUTSIDE RECORDS SUMMARY | 2024-10-02 19:28 | XMS_ITS | Encounter Summary ---
Author Organization [facility] Address [facility] [place] [address] Care Team Providers Care Brim Curler Name Role Phone Yesy Nagy APRN Primary Care Provider Reason for Referral * Consultation (Routine) - Closed Specialty Diagnoses / Procedures Referred By Contac t Referred To Contact Neurology Diagnoses GCA (giant cell arteritis) Obdulia Coleman MD [facility] [place] [address] [facility] [address] [place] [address] Referral ID Status Reason Start Date Expiration Date V isits Requested Visits Authorized [id number] Closed Consult, Test & Treat 07/14/2024 07/14/2025 1 1 Encounter Details Date Type Department Care Team (Late st Contact Info) Description 07/14/2024 10:30 AM EDT Office [place] [phone] Obdulia Coleman MD [facility] [place] [address] GCA (giant cell arteritis); Neuropathy; Prediabetes Social [...] 04/2022 - He recently visited neurology at [facility]---->MRI of the brain unremarkable--->gait imbalance thought to be due to possible parkinson's disease, but pt did not have further follow up Plan -Referral [facility] provided -We will follow-up with vitamin B12 level, SPEP, UPEP Patient was discussed and seen with Dr. Kimber Coleman MD Rheumatology Fellow Pager # [phone] * Jennifer Soares CCMA - 07/14/2024 10:30 [...] steroid sparing agent. Mika Quiroga MD Staff Tool Setter documented in this encounter Plan of Treatment [...] (ABNORMAL) Hemoglobin A1c (07/14/2024 11:53 AM EDT) [facility] Signature Hemoglobin A1c 7.7(H) 4.3 - 5.6 % 07/14/2024 12:34 PM EDT [facility] Comment: Per ADA guidelines, [...] red blood cell turnover may not be customer success representative of glycemic control. Reference Interval: 4.3 - 5.6% 5.7 - 6.4%: Consistent with prediabetes >=6.5%: Consistent with diagnosis of diabetes mellitus Estimated Average Glucose 07/14/2024 12:34 PM EDT [facility] Comment:Not Calculated. Blood VENOUS BLOOD SPECIMEN / Unknown Venipuncture / Unknown 07/14/2024 11:53 AM EDT 07/14/2024 11:53 AM EDT Narrative [facility] - 07/14/2024 12:34 PM EDT Estimated average glucose (eAG) is calculated from the equation described in: Alejandro BRAGA, Dayana J, Jelly R, et al. ??Translating the A1C assay into estimated average glucose values. ??Diabetes Care 2008:31(8):1144-9706. Additional resources are available on the ADA website (diabetes.org). Mika Quiroga MD CHEMISTRY ORDERABLES Performing Organization Address City/[facility]/ZIP Co de Phone Number [facility] [place] [address] * (ABNORMAL) Vitamin B12 (07/14/2024 11:53 AM EDT) Vitamin B12 1,260(H) 232 - 1,245 pg/mL 07/14/2024 12:52 PM EDT [facility] Blood VENOUS BLOOD SPECIMEN / Unknown Venipuncture / Unknown 07/14/2024 11:53 AM EDT 07/14/2024 11:53 AM EDT Mika Quiroga MD CHEMISTRY ORDERABLES Performing Organization Address [facility] Co de Phone Number [facility] [place] [address] * (ABNORMAL) CRP, acute inflammation (07/14/2024 11:53 AM EDT) C-Reactive Protein 5.6(H) <=4.9 mg/L 07/14/2024 12:38 PM EDT [facility] Blood VENOUS BLOOD SPECIMEN / Unknown Venipuncture / Unknown 07/14/2024 11:53 AM EDT 07/14/2024 11:53 AM EDT Mika Quiroga MD CHEMISTRY ORDERABLES Performing Organization Address City/[facility]/ZIP Co de Phone Number [facility] [place] [address] * (ABNORMAL) Sedimentation rate (07/14/2024 11:53 AM EDT) Sedimentation Rate Automated 57(H) 3 - 46 mm/hr 07/14/2024 12:42 PM EDT [facility] Blood VENOUS BLOOD SPECIMEN / Unknown Venipuncture / Unknown 07/14/2024 11:53 AM EDT 07/14/2024 11:53 AM EDT Mika Quiroga MD HEMATOLOGY ORDERABLE S [facility] [place] [address] * (ABNORMAL) Comprehensive metabolic panel (07/14/2024 11:53 AM EDT) Pathologist [facility] Glucose 199 65 - 199 mg/dL 07/14/2024 12:38 PM EDT [facility] Comment:Glucose Concentratio n >=200 mg/dL plus symptoms is consistent with Diabetes Mellitus. Blood Urea Nitrogen 18 10 - 20 mg/dL 07/14/2024 12:38 PM EDT [facility] Creatinine 1.22 0.80 - 1.50 mg/dL 07/14/2024 12:38 PM EDT [facility] Sodium 137 135 - 145 mMol/L 07/14/2024 12:38 PM EDT [facility] Potassium 4.5 3.5 - 5.0 mMol/L 07/14/2024 12:38 PM EDT [facility] Chloride 97(L) 98 - 107 mMol/L 07/14/2024 12:38 PM EDT [facility] Carbon Dioxide 24 22 - 31 mMol/L 07/14/2024 12:38 PM EDT [facility] Anion Gap 16(H) 5 - 15 mMol/L 07/14/2024 12:38 PM EDT [facility] Calcium 10.2 8.5 - 10.5 mg/dL 07/14/2024 12:38 PM EDT [facility] Protein, Total 7.1 6.1 - 8.0 g/dL 07/14/2024 12:38 PM EDT [facility] Albumin 4.2 3.2 - 5.2 g/dL 07/14/2024 12:38 PM EDT [facility] Aspartate Aminotransferase 13 <=39 unit/L 07/14/2024 12:38 PM EDT [facility] Alanine Aminotransferase 15 0 - 55 unit/L 07/14/2024 12:38 PM EDT [facility] Alkaline Phosphatase 71 40 - 130 unit/L 07/14/2024 12:38 PM EDT [facility] Bilirubin, Total 0.4 <=1.3 mg/dL 07/14/2024 12:38 PM T [facility] Est Glomerular Filtration Rate - Male 62 mL/min/1. 73 m?? 07/14/2024 12:38 PM [facility] Comment: This patient's estimated GFR [...] Fasting Status No 07/14/2024 12:38 PM EDT [facility] Blood VENOUS BLOOD SPECIMEN / Unknown Venipuncture / Unknown 07/14/2024 11:53 AM EDT 07/14/2024 11:53 AM EDT Mika Quiroga MD CHEMISTRY ORDERABLES [facility] [place] [address] * (ABNORMAL) CBC (with Diff) (07/14/2024 11:53 AM EDT) White Blood Cell 16.07(H) 4.00 - 9.50 x10(3)/mc L 07/14/2024 12:42 PM [facility] Red Blood Cell 4.42(L) 4.58 - 5.54 x10(6)/mc L 07/14/2024 12:42 PM [facility] Hemoglobin 13.7 13.7 - 16.5 g/dL 07/14/2024 12:42 PM [facility] Hematocrit 40.4(L) 40.5 - 48.5 % 07/14/2024 12:42 PM [facility] Mean Cell Volume 91.4 82.9 - 93.1 fL 07/14/2024 12:42 PM [facility] Mean Cell Hemoglobin 31.0 27.5 - 32.1 pg 07/14/2024 12:42 PM [facility] Mean Cell Hemoglobin Concentration 33.9 32.0 - 35.7 g/dL 07/14/2024 12:42 PM [facility] Platelet 256 145 - 357 x10(3)/mc L 07/14/2024 12:42 PM [facility] Mean Platelet Volume 9.8 7.6 - 12.9 fL 07/14/2024 12:42 PM [facility] RDW Standard Deviation 44.5 36.0 - 45.0 fL 07/14/2024 12:42 PM [facility] RDW coefficient of variation 13.2 11.4 - 13.8 % 07/14/2024 12:42 PM [facility] NRBC% auto 0.0 % 07/14/2024 12:42 PM [facility] NRBC Absolute 0.00 0.00 - 0.00 x10(3)/mc L 07/14/2024 12:42 PM [facility] Neutrophil % 83.2 % 07/14/2024 12:42 PM [facility] Neutrophil Absolute (ANC) - Automated 13.36(H) 1.70 - 6.10 x10(3)/mc L 07/14/2024 12:42 PM EDT [facility] Lymph % 10.8 % 07/14/2024 12:42 PM EDT [facility] Lymph Absolute 1.74 0.90 - 3.20 x10(3)/mc L 07/14/2024 12:42 PM EDT [facility] Monocyte % 4.2 % 07/14/2024 12:42 PM EDT [facility] Monocyte Absolute 0.68 0.30 - 0.90 x10(3)/mc L 07/14/2024 12:42 PM EDT [facility] Eos % 0.2 % 07/14/2024 12:42 PM EDT [facility] Eos Absolute 0.03 0.00 - 0.40 x10(3)/mc L 07/14/2024 12:42 PM EDT [facility] Basophil % 0.2 % 07/14/2024 12:42 PM EDT [facility] Baso Absolute 0.04 0.00 - 0.10 x10(3)/mc L 07/14/2024 12:42 PM EDT [facility] Immature Gran % 1.4 % 12:42 PM EDT [facility] Immature Gran Absolute 0.22(H) 0.00 - 0.04 x10(3)/mc L 07/14/2024 12:42 PM EDT [facility] Blood VENOUS BLOOD SPECIMEN / Unknown Venipuncture / Unknown 07/14/2024 11:53 AM EDT 07/14/2024 11:53 AM EDT Mika Quiroga MD HEMATOLOGY ORDERABLE S [facility] [place] [address] documented in this encounter Visit Diagnoses Diagnosis GCA (giant cell arteritis) Giant cell arteritis Neuropathy Mononeuritis of unspecified site Prediabetes Other abnormal glucose documented in this encounter Care Teams Brim Curler Relationship Specialty Start Date End Date Yesy Nagy APRN [address] [place] [address] PCP - General Geriatric Medicine 08/02/22 documented as of this encounter
--- OUTSIDE RECORDS SUMMARY | 2024-10-02 19:28 | XMS_ITS | Encounter Summary ---
Author Organization [facility] Address [facility] [address] Care Team Providers Care Supervisor Ski Production Name Role Phone Yesy Nagy APRN Primary Care Provider [phone] Reason for Visit * Reason Onset Date Comments Questions 09/14/2023 Encounter Details Date Type Department Care Team (Late st Contact Info) Description 09/14/2023 [place]phone [place] [phone] Dia Rosario RN Questions Social History Tobacco [...] - 09/14/2023 11:54 AM EDT Copied from [facility] #[id number]. Topic: Specialty Dept CRMs - Triage >> [...] filedocumented in this encounter Care Teams Supervisor Ski Production Relationship Specialty Start Date End Date Yesy Nagy APRN [address] [place] [address] PCP - General Geriatric Medicine 08/02/22 documented as of this encounter
--- OUTSIDE RECORDS SUMMARY | 2024-10-02 19:28 | XMS_ITS | Encounter Summary ---
Author Organization [facility] Address [address] [place] [address] Care Team Providers Care Shark Biologist Name Role Phone Unknown, Provider MD Primary Care Provider Unava ilable Unknown, Provider MD Unavailable Unavailable Encounter Details Date Type Department Care Team (Late st Contact Info) Description 08/19/2022 Lab Requisition [facility] Pathology & Laboratory Medicine - [facility] [address] [place] [address] Outr Resulting Lab, Provider Social History Tobacco [...] Quantiferon Interpretation Negative Negative 08/21/2022 14:00 EDT [facility] Comment:No interferon-gamma response to M. tuberculosis antigens was detected. ??Infection with M. tuberculosis is unlikely. A single negative result does not exclude infection with M. tuberculosis. ??In patients at high risk for M. tuberculosis infection, a second test should be considered. TB1 Ag minus Nil 0.13 IU/ml 08/21/20 14:00 EDT [facility] TB2 Ag minus Nil 0.09 IU/mL 08/21/20 14:00 EDT [facility] Blood VENOUS BLOOD / Unknown 08/18/2022 9:08 EDT 08/21/2022 13:39 EDT Narrative [facility] - 08/21/2022 14:00 EDT Results were obtained with the Qiagen QuantiFERON-TB Gold Plus CLIA. New platform in use 08/03/2021 Provider Outr Resulting Lab IMMUNOLOGY A ND SEROLOGY ORDERABLES Performing Organization Address [facility] Co de Phone Number [facility] [address] [place] [address] * QUANTIFERON MITOGEN (PERFORMABLE) (08/18/2022 9:08 EDT) Blood VENOUS BLOOD / Unknown 08/18/2022 9:08 EDT 08/20/2022 15:42 EDT Provider Outr Resulting Lab IMMUNOLOGY A ND SEROLOGY ORDERABLES Performing Organization Address [facility]/ZIP Co de Phone Number [facility] [address] [place] [address] * QUANTIFERON TB2 (PERFORMABLE) (08/18/2022 9:08 EDT) Blood VENOUS BLOOD / Unknown 08/18/2022 9:08 EDT 08/20/2022 15:42 EDT Provider Outr Resulting Lab IMMUNOLOGY A ND SEROLOGY ORDERABLES Performing Organization Address [facility]/ZIP Co de Phone Number [facility] [address] [place] [address] * QUANTIFERON TB1 (PERFORMABLE) (08/18/2022 9:08 EDT) Blood VENOUS BLOOD / Unknown 08/18/2022 9:08 EDT 08/20/2022 15:42 EDT Provider Outr Resulting Lab IMMUNOLOGY A ND SEROLOGY ORDERABLES Performing Organization Address [facility] de Phone Number [facility] [address] [place] [address] * QUANTIFERON NIL (PERFORMABLE) (08/18/2022 9:08 EDT) Blood VENOUS BLOOD / Unknown 08/18/2022 9:08 EDT 08/20/2022 15:42 EDT Provider Outr Resulting Lab IMMUNOLOGY A ND SEROLOGY ORDERABLES Performing Organization Address [facility] de Phone Number [facility] [address] [place] [address] documented in this encounter Visit Diagnoses Not on filedocumented in this encounter Care Teams Shark Biologist Relationship Specialty Start Date End Date Unknown, ProviderMD PCP - General 11/10/15 Unknown, MD Gavi 11/10/15 documented as of this encounter
--- OUTSIDE RECORDS SUMMARY | 2024-10-02 19:28 | XMS_ITS | Encounter Summary ---
Author Organization [facility] Address [facility] [place] [address] Care Team Providers Care Chute Tapper Name Role Phone Yesy Nagy APRN Primary Care Provider [phone] Encounter Details Date Type Department Care Team (Late st Contact Info) Description 07/19/2023 Telephone [place] [phone] Ananya Payan DO [facility] [address] Social History Tobacco Use Types Packs/Day Years [...] [facility] Note: Judson Patel Jr. Is hoping to decrease his prednisone dosage and keep pain levels at a minimum. He is hoping that Actemra will be able to keep him walking since before prednisone he had a hard time standing up and walking around. documented as of this encounter Visit Diagnoses Not on filedocumented in this encounter Care Teams Chute Tapper Relationship Specialty Start Date End Date Yesy Nagy APRN [address] [place] [address] PCP - General Geriatric Medicine 08/02/22 documented as of this encounter
--- OUTSIDE RECORDS SUMMARY | 2024-10-02 19:28 | XMS_ITS | Encounter Summary ---
Author Organization [facility] Address [address] [place] [address] Care Team Providers Care Hide House Supervisor Name Role Phone Unknown, Provider MD Primary Care Provider Unava ilable Unknown, Provider MD Unavailable Unavailable Encounter Details Date Type Department Care Team (Late st Contact Info) Description 12/24/2020 Lab Requisition [facility] Pathology & Laboratory Medicine - [address] [address] Outr Resulting Lab, Provider Social History Tobacco [...] 0.0 - 6.5 ng/mL 12/24/2020 22:11 EST [facility] Blood VENOUS BLOOD / Unknown 12/24/2020 12:05 EST 12/24/2020 21:03 EST Narrative [facility] - 12/24/2020 22:11 EST NOTE: Serum PSA concentration should not be interpreted as absolute evidence for the presence or absence of malignant disease. Assayed on Siemens ADVIA Listen Editionaur XPT using chemiluminescent technology.??Values obtained by using different assay methods cannot be used interchangeably. Provider Outr Resulting Lab CHEMISTRY & BLOOD GAS ORDERABLES [facility] [address] [place] [address] documented in this encounter Visit Diagnoses Not on filedocumented in this encounter Care Teams Hide House Supervisor Relationship Specialty Start Date End Date Unknown, ProviderMD PCP - General 11/10/15 Unknown, ProviderMD 11/10/15 documented as of this encounter
--- OUTSIDE RECORDS SUMMARY | 2024-10-02 19:28 | XMS_ITS | Encounter Summary ---
Author Organization [facility] Address [address] [place] [address] Care Team Providers Care A P Manager Name Role Phone Unknown, Provider MD Primary Care Provider Unava ilable Unknown, Provider MD Unavailable Unavailable Encounter Details Date Type Department Care Team (Late st Contact Info) Description 08/18/2022 Lab Requisition [facility] Pathology & Laboratory Medicine - [address] [address] Outr Resulting Lab, Provider Social History Tobacco [...] 4th Generation Negative Negative 08/21/2022 10:20 EDT [facility] Comment:If acute HIV-1 infec tion is suspected in a high risk patient, submit plasma specimen for HIV-1 RNA quantitation test. Blood VENOUS BLOOD / Unknown 08/18/2022 9:08 EDT 08/18/2022 18:19 EDT Narrative [facility] - 08/21/2022 10:20 EDT Fourth Generation assay performed on the Siemens [employer] Medical Devicesaur XPT. Provider Outr Resulting Lab IMMUNOLOGY A ND SEROLOGY ORDERABLES [facility] [address] [place] [address] documented in this encounter Visit Diagnoses Not on filedocumented in this encounter Care Teams A P Manager Relationship Specialty Start Date End Date Unknown, ProviderMD PCP - General 11/10/15 Unknown, ProviderMD 11/10/15 documented as of this encounter
--- OUTSIDE RECORDS SUMMARY | 2024-10-02 19:28 | XMS_ITS | Encounter Summary ---
Author Organization [facility] Address [facility] [place] [address] Care Team Providers Care Job Change Crew Member Name Role Phone Yesy Nagy MALACHI Primary Care Provider [phone] Reason for Visit * Reason Onset Date Comments Medication Refill 04/28/2024 Encounter Details Date Type Department Care Team (Late st Contact Info) Description 04/28/2024 [place] [phone] Ananya Payan, [facility] [place] [address] GCA (giant cell arteritis); PMR (polymyalgia rheumatica) [...] medication list. PHARMACY NAME:[id number] - [place], [place] - [address] [place] [address] PHARMACY PHONE: [phone] Would patient like script sent directly to pharmacy? (Yes or no) yes Would patient like to pick up attendant paper script here at our office (Please [...] [facility] Note: Judson Robe Patel Jr. [...] rheumatica documented in this encounter Care Teams Job Change Crew Member Relationship Specialty Start Date End Date Yesy Nagy APRN [address] [place] [address] PCP - General Geriatric Medicine 08/02/22 documented as of this encounter
--- OUTSIDE RECORDS SUMMARY | 2024-10-02 19:28 | XMS_ITS | Encounter Summary ---
Author Organization [facility] Address [facility] [place] [address] Care Team Providers Care Cash Clerk Name Role Phone Yesy Nagy APRN Primary Care Provider [phone] Encounter Details Date Type Department Care Team (Late st Contact Info) Description 08/06/2024 Telephone [place] [address] Landy Monson RN Social History [...] - 08/06/2024 5:36 PM EDT Copied from [facility] #[id number]. Topic: Specialty Dept CRMs - Generic Call >> Aug 06, 2024 11:15 AM February wrote: Specialist: Ananya Payan, DO Relationship (if other than patient-full name): Self Reason for Call: Patient states that he received a call from the office and he is returning it Mailbox is full-not able to leave a message. Send note to have wood scaler call patient. Chart check- Dear Mr. Patel, We have tried to reach you regarding a referral received in our office. If you would still like to set up an appointment in the Neurology Department we would be happy to assist you. We can be reached at [phone], M-F between the hours of 8am-5pm. documented in this encounter Plan of Treatment Not on file documented as of this encounter Goals Goal Patient Goal Type Associated Problems Recent Progress Patient-Stated? Author DH Self-Management Patient Facing Action Plan No Danica Taylor, [facility] Note: Judson Nagel Jorge Funk Is hoping to decrease his prednisone dosage and keep pain levels at a minimum. He is hoping that Actemra will be able to keep him walking since before prednisone he had a hard time standing up and walking around. documented as of this encounter Visit Diagnoses Not on filedocumented in this encounter Care Teams Cash Clerk Relationship Specialty Start Date End Date Yesy Nagy APRN [address] [place] [address] PCP - General Geriatric Medicine 08/02/22 documented as of this encounter
--- OUTSIDE RECORDS SUMMARY | 2024-10-02 19:28 | XMS_ITS | Referral Summary ---
Author Organization [facility] Address [address] [place] [address] Care Team Providers Care Poultry Dressing Worker Name Role Phone Unknown, Provider MD Primary [...] C Antibody Negative Negative 08/21/2022 10:26 EDT [facility] Blood VENOUS BLOOD / Unknown 08/18/2022 9:08 EDT 08/18/2022 18:19 EDT Provider Outr Resulting Lab CHEMISTRY & BLOOD GAS ORDERABLES [facility] [address] [place] [address] from Last 3 Months or Most Recently Relevant to Health Maintenance Care Teams Poultry Dressing Worker Relationship Specialty Start Date End Date Unknown, ProviderMD PCP - General 11/10/15 Unknown, MD Gavi 11/10/15
--- OUTSIDE RECORDS SUMMARY | 2024-10-02 19:28 | XMS_ITS | Encounter Summary ---
Author Organization [facility] [place] [address] Care Team Providers Care Industrial Organization Manager Name Role Phone MikeYesy Swenson MALACHI Primary Care Provider [phone] Encounter Details Date Type Department Care Team (Late st Contact Info) Description 06/22/2023 [place] [phone] Ananya Payan DO [facility] [place] [address] Social History Tobacco Use Types Packs/Day Years [...] Taylor, [facility] Note: Judson Robe Patel Jr. [...] hands documented in this encounter Care Teams Industrial Organization Manager Relationship Specialty Start Date End Date Yesy Nagy APRN [address] [place] [address] PCP - General Geriatric Medicine 08/02/22 documented as of this encounter
--- OUTSIDE RECORDS SUMMARY | 2024-10-02 19:28 | XMS_ITS | Encounter Summary ---
Author Organization [facility] Address [facility] [place] [address] Care Team Providers Care Tunnel Kiln Repairer Name Role Phone Yesy Nagy APRN Primary Care Provider [phone] Encounter Details Date Type Department Care Team (Late st Contact Info) Description 01/04/2024 [place] [address] Landy Monson RN Social History [...] doing well. He has permanently relocated to [place]. I informed him that it would be [...] 5 mg Prednisone and started to have TORRES,sikh mild pain, so increased back to 7 mg daily. This is much better. States he has good days/bad days. Visiting sister in [place] currently. Balance not good and motor skills [...] away). Denied eye symptoms. Denied jaw claudication. Zoroastrianism pain now(when 5 mg was tender) but not now. Pt denied trouble chewing and no blurry vision at this time. Patient denied joint pain.Nothing red,warm nor swollen. Denied f/c/n/v/d and has been eating healthy, and not sick. No cold symptoms. Has been seeing his sister in [place] Asked about if studies available and maybe more medications available. Anxious to know if new things, and want to talk to Dr Schuyler DO. * Telephone Encounter - Landy Monson RN - 01/04/2024 1:25 PM EST Copied from [facility] #[id number]. Topic: Specialty Dept CRMs - Triage >> [...] on filedocumented in this encounter Care Teams Tunnel Kiln Repairer Relationship Specialty Start Date End Date Yesy Nagy APRN [address] [place] [address] PCP - General Geriatric Medicine 08/02/22 documented as of this encounter
--- OUTSIDE RECORDS SUMMARY | 2024-10-02 19:28 | XMS_ITS | Encounter Summary ---
Author Organization [facility] Address [address] [place] [address] Care Team Providers Care Grassroots Organizer Name Role Phone Unknown, Provider Primary Care Provider Unava ilable Unknown, Provider MD Unavailable Unavailable Encounter Details Date Type Department Care Team (Late st Contact Info) Description 05/14/2023 Lab Requisition [facility] Pathology & Laboratory Medicine - [address] [address] Outr Resulting Lab, Provider Social History Tobacco [...] ID No fungi isolated 06/12/2023 7:46 EDT [facility] Blood VENOUS BLOOD / Unknown 05/14/2023 12:20 EDT 05/14/2023 17:19 EDT Provider Outr Resulting Lab MICROBIOLOGY - GENERAL ORDERABLES [facility] [address] [place] [address] documented in this encounter Visit Diagnoses Not on filedocumented in this encounter Care Teams Grassroots Organizer Relationship Specialty Start Date End Date Unknown, Provider, PCP - General 12/16/15 Unknown, Provider, 11/10/15 documented as of this encounter
--- OUTSIDE RECORDS SUMMARY | 2024-10-02 19:28 | XMS_ITS | Clinical Summary ---
Author Organization [facility] Address [address] [place] [address] Care Team Providers Care Foam Tank Laminator Name Role Phone Unknown, Provider MD Primary [...] C Antibody Negative Negative 08/21/2022 10:26 EDT [facility] Blood VENOUS BLOOD / Unknown 08/18/2022 9:08 EDT 08/18/2022 18:19 EDT Provider Outr Resulting Lab CHEMISTRY & BLOOD GAS ORDERABLES [facility] [address] [place] [address] from Last 3 Months or Most Recently Relevant to Health Maintenance Care Teams Foam Tank Laminator Relationship Specialty Start Date End Date Unknown, Provider, PCP - General 11/10/15 Unknown, Provider, 11/10/15
--- OUTSIDE RECORDS SUMMARY | 2024-10-02 19:28 | XMS_ITS | Clinical Summary ---
Author Organization [facility] Address [facility] [place] [address] Care Team Providers Care Speech And Language Tutor Name Role Phone Yesy Nagy MALACHI Primary Care Provider Allergies Active Allergy Reactions Criticality Noted Date [...] OIL ORAL) Take by mouth. Active Ascorbic Stxx-Ruetfdfub-Ppa (Emergen-C) 1,000 mg Powder Effervescent in Packet Take by mouth. Active metFORMIN XR (Glucophage XR) 500 mg Tablet Sustained Release 24 hr Take 500 mg by mouth daily. 01/01/2023 Active hydrocortisone 2.5 % Cream APPLY TOPICALLY THREE TIMES A DAY NEEDED FOR SKIN IRRITATION/HEMMOR RHOID 01/01/2023 Active fluocinonide (LIDEX) 0.05 % CreamIndications:Burial Vault Maker deborah paronychia of finger, unspecified laterality Apply [...] Care Team Description 08/06/2024 Telephone [place] [address] Landy Monson RN 07/14/2024 12:55 PM EDT Laboratory Appointment Lab [address] [place] [address] GCA (giant cell arteritis); Neuropathy; Prediabetes 07/14/2024 10:30 AM EDT Office [place] [phone] Obdulia Coleman MD GCA (giant cell arteritis); Neuropathy; Prediabetes 07/14/2024 [place] [address] Dayna Paez RN 07/14/2024 Travel from Last [...] Quiroga MD URINE ORDERABLES Performing Organization Address City/State/[facility] Co de Phone Number [facility] [place] [address] * (ABNORMAL) PEP, Serum (07/14/2024 11:53 AM EDT) Protein, Total 6.6 6.1 - 8.0 g/dL 07/15/2024 3:23 PM EDT [facility] Albumin Electrophoresis 4.17 3.20 - 5.20 g/dL 07/15/2024 3:23 PM EDT [facility] Alpha 1 Globulin 0.17 0.10 - 0.30 g/dL 07/15/2024 3:23 PM EDT [facility] Alpha 2 Globulin 0.91(H) 0.40 - 0.90 g/dL 07/15/2024 3:23 PM EDT [facility] Beta Globulin 0.69 0.50 - 1.00 g/dL 07/15/2024 3:23 PM EDT [facility] Gamma Globulin 0.66 0.50 - 1.30 g/dL 07/15/2024 3:23 PM EDT [facility] M1 Band 07/15/2024 3:23 PM EDT [facility] Comment:None Detected Blood VENOUS BLOOD SPECIMEN / Unknown Venipuncture / Unknown 07/14/2024 11:53 AM EDT 07/14/2024 11:53 AM EDT Mika Quiroga MD URINE ORDERABLES Performing Organization Address City/[facility]/ZIP Co de Phone Number [facility] [place] [address] * Protein, Urine Electrophoresis (07/14/2024 11:53 AM EDT) Urine URINE SPECIMEN / Unknown Non Blood Collection / Unknown 07/14/2024 11:53 AM EDT 07/14/2024 11:53 AM EDT Mika Quiroga MD URINE ORDERABLES Performing Organization Address [facility] [place] [facility] Co de Phone Number [facility] [place] [address] * (ABNORMAL) PEP, Urine Random (07/14/2024 11:53 AM EDT) Albumin, Urine Electrophoresis 70 % total 07/15/2024 3:34 PM EDT [facility] Globulin, Random Urine 30 % total 07/15/2024 3:34 PM EDT [facility] M1 Band, Urine 07/15/2024 3:34 PM EDT [facility] Comment:There is no evidence of clonal free light chains in this patient's urine sample. Protein, Urine 23(H) 0 - 12 mg/dL 07/15/2024 3:34 PM EDT [facility] Urine URINE SPECIMEN / Unknown Non Blood Collection / Unknown 07/14/2024 11:53 AM EDT 07/14/2024 11:53 AM EDT Mika Quiroga MD URINE ORDERABLES Performing Organization Address [facility] [place] [facility] Co de Phone Number [facility] [place] [address] * (ABNORMAL) CRP, acute inflammation (07/14/2024 11:53 AM EDT) [facility] C-Reactive Protein 5.6(H) <=4.9 mg/L 07/14/2024 12:38 PM EDT [facility] Blood VENOUS BLOOD SPECIMEN / Unknown Venipuncture / Unknown 07/14/2024 11:53 AM EDT 07/14/2024 11:53 AM EDT Mika Quiroga MD CHEMISTRY ORDERABLES Performing Organization Address City/[facility]/ZIP Co de Phone Number [facility] [place] [address] * (ABNORMAL) Sedimentation rate (07/14/2024 11:53 AM EDT) [facility] Sedimentation Rate Automated 57(H) 3 - 46 mm/hr 07/14/2024 12:42 PM EDT [facility] Blood VENOUS BLOOD SPECIMEN / Unknown Venipuncture / Unknown 07/14/2024 11:53 AM EDT 07/14/2024 11:53 AM EDT Mika Quiroga MD HEMATOLOGY ORDERABLE S [facility] [place] [address] * (ABNORMAL) CBC (with Diff) (07/14/2024 11:53 AM EDT) [facility] White Blood Cell 16.07(H) 4.00 - 9.50 x10(3)/mc L 07/14/2024 12:42 PM EDT [facility] Red Blood Cell 4.42(L) 4.58 - 5.54 x10(6)/mc L 07/14/2024 12:42 PM EDT [facility] Hemoglobin 13.7 13.7 - 16.5 g/dL 07/14/2024 12:42 PM EDT [facility] Hematocrit 40.4(L) 40.5 - 48.5 % 07/14/2024 12:42 PM [facility] Mean Cell Volume 91.4 82.9 - 93.1 fL 07/14/2024 12:42 PM [facility] Mean Cell Hemoglobin 31.0 27.5 - 32.1 pg 07/14/2024 12:42 PM [facility] Mean Cell Hemoglobin Concentration 33.9 32.0 - 35.7 g/dL 07/14/2024 12:42 PM [facility] Platelet 256 145 - 357 x10(3)/mc L 07/14/2024 12:42 PM [facility] Mean Platelet Volume 9.8 7.6 - 12.9 fL 07/14/2024 12:42 PM [facility] RDW Standard Deviation 44.5 36.0 - 45.0 fL 07/14/2024 12:42 PM [facility] RDW coefficient of variation 13.2 11.4 - 13.8 % 07/14/2024 12:42 PM [facility] NRBC% auto 0.0 % 07/14/2024 12:42 PM [facility] NRBC Absolute 0.00 0.00 - 0.00 x10(3)/mc L 07/14/2024 12:42 PM [facility] Neutrophil % 83.2 % 07/14/2024 12:42 PM [facility] Neutrophil Absolute (ANC) - Automated 13.36(H) 1.70 - 6.10 x10(3)/mc L 07/14/2024 12:42 PM [facility] Lymph % 10.8 % 07/14/2024 12:42 PM [facility] Lymph Absolute 1.74 0.90 - 3.20 x10(3)/mc L 07/14/2024 12:42 PM [facility] Monocyte % 4.2 % 07/14/2024 12:42 PM [facility] Monocyte Absolute 0.68 0.30 - 0.90 x10(3)/mc L 07/14/2024 12:42 PM EDT [facility] Eos % 0.2 % 07/14/2024 12:42 PM EDT [facility] Eos Absolute 0.03 0.00 - 0.40 x10(3)/mc L 07/14/2024 12:42 PM EDT [facility] Basophil % 0.2 % 07/14/2024 12:42 PM EDT [facility] Baso Absolute 0.04 0.00 - 0.10 x10(3)/mc L 07/14/2024 12:42 PM EDT [facility] Immature Gran % 1.4 % 12:42 PM EDT [facility] Immature Gran Absolute 0.22(H) 0.00 - 0.04 x10(3)/mc L 07/14/2024 12:42 PM EDT [facility] Blood VENOUS BLOOD SPECIMEN / Unknown Venipuncture / Unknown 07/14/2024 11:53 AM EDT 07/14/2024 11:53 AM EDT Mika Quiroga MD HEMATOLOGY ORDERABLE S [facility] [place] [address] * (ABNORMAL) Hemoglobin A1c (07/14/2024 11:53 AM EDT) Hemoglobin A1c 7.7(H) 4.3 - 5.6 % 07/14/2024 12:34 PM EDT [facility] Comment: Per ADA [...] red blood cell turnover may not be traveling sales representative of glycemic control. Reference Interval: 4.3 - 5.6% 5.7 - 6.4%: Consistent with prediabetes >=6.5%: Consistent with diagnosis of diabetes mellitus Estimated Average Glucose 07/14/2024 12:34 PM EDT [facility] Comment:Not Calculated. Blood VENOUS BLOOD SPECIMEN / Unknown Venipuncture / Unknown 07/14/2024 11:53 AM EDT 07/14/2024 11:53 AM EDT Narrative [facility] - 07/14/2024 12:34 PM EDT Estimated average glucose (eAG) is calculated from the equation described in: Alejandro BRAGA, Dayana J, Jelly R, et al. ??Translating the A1C assay into estimated average glucose values. ??Diabetes Care 2008:31(8):1575-7333. Additional resources are available on the ADA website (diabetes.org). Mika Quiroga MD CHEMISTRY ORDERABLES [facility] [place] [address] * (ABNORMAL) Vitamin B12 (07/14/2024 11:53 AM EDT) Vitamin B12 1,260(H) 232 - 1,245 pg/mL 07/14/2024 12:52 PM EDT [facility] Blood VENOUS BLOOD SPECIMEN / Unknown Venipuncture / Unknown 07/14/2024 11:53 AM EDT 07/14/2024 11:53 AM EDT Mika Quiroga MD CHEMISTRY ORDERABLES [facility] [place] [address] * (ABNORMAL) Comprehensive metabolic panel (07/14/2024 11:53 AM EDT) Glucose 199 65 - 199 mg/dL 07/14/2024 12:38 PM EDT [facility] Comment:Glucose Concentratio n >=200 mg/dL plus symptoms is consistent with Diabetes Mellitus. Blood Urea Nitrogen 18 10 - 20 mg/dL 07/14/2024 12:38 PM [facility] Creatinine 1.22 0.80 - 1.50 mg/dL 07/14/2024 12:38 PM [facility] Sodium 137 135 - 145 mMol/L 07/14/2024 12:38 PM [facility] Potassium 4.5 3.5 - 5.0 mMol/L 07/14/2024 12:38 PM [facility] Chloride 97(L) 98 - 107 mMol/L 07/14/2024 12:38 PM [facility] Carbon Dioxide 24 22 - 31 mMol/L 07/14/2024 12:38 PM [facility] Anion Gap 16(H) 5 - 15 mMol/L 07/14/2024 12:38 PM [facility] Calcium 10.2 8.5 - 10.5 mg/dL 07/14/2024 12:38 PM [facility] Protein, Total 7.1 6.1 - 8.0 g/dL 07/14/2024 12:38 PM [facility] Albumin 4.2 3.2 - 5.2 g/dL 07/14/2024 12:38 PM [facility] Aspartate Aminotransferase 13 <=39 unit/L 07/14/2024 12:38 PM [facility] Alanine Aminotransferase 15 0 - 55 unit/L 07/14/2024 12:38 PM [facility] Alkaline Phosphatase 71 40 - 130 unit/L 07/14/2024 12:38 PM [facility] Bilirubin, Total 0.4 <=1.3 mg/dL 07/14/2024 12:38 PM [facility] Est Glomerular Filtration Rate - Male 62 mL/min/1. 73 m?? 07/14/2024 12:38 PM [facility] Comment: This patient's estimated GFR [...] Fasting Status No 07/14/2024 12:38 PM EDT [facility] Blood VENOUS BLOOD SPECIMEN / Unknown Venipuncture / Unknown 07/14/2024 11:53 AM EDT 07/14/2024 11:53 AM EDT Mika Quiroga MD CHEMISTRY ORDERABLES [facility] [place] [address] * Lipid Panel (Reflex Direct LDL) (05/31/2023 10:18 AM EDT) [facility] Cholesterol, Total 239 mg/dL [facility] Comment: Lower Risk: <200 mg/dL Average Risk: 200-239 mg/dL Higher Risk: >ls=587 mg/dL Triglyceride 191 mg/dL [facility] Comment: Average Risk/Lower Risk: <150 mg/dL Borderline High Risk: 150-199 mg/dL High Risk: 200-499 mg/dL Very High Risk: >po=453 mg/dL HDL Cholesterol 51 mg/dL [facility] Comment: Males: ?? Higher Risk: <40 mg/dL Females: ?? Higher Risk: <50 mg/dL LDL Cholesterol 150 mg/dL [facility] Comment: Lowest Risk: <100 mg/dL Lower Risk: 100-129 mg/dL Borderline High Risk: 130-159 mg/dL High Risk: 160-189 mg/dL Very High Risk: >js=477 mg/dL Cholesterol/HDL Ratio 4.7 ratio [facility] Lipid Interpretation See Note [facility] Comment: Lipid management should be guided by a patient? s ASCVD risk, goals and preferences. ACC/AHA Guidelines recommend high intensity statin if clinical ASCVD or LDL greater than or equal to 190 mg/dL. http://HealthRallyurl.com/HDO-LUN-Hhpjntvid Adults aged 40-75 with LDL 70-189 mg/dL should have their 10 year ASCVD risk estimated with the ACC/AHA ASCVD risk rn otolaryngology http://tools.acc.org/AMSFS-Thxf-Sserzxmwa/ Statin should be discussed if risk greater [...] Lab Junior Bernard MD CHEMISTRY ORDERABLE S [facility] [place] [address] * Hepatitis C Antibody (01/23/2023 9:59 AM EST) Hepatitis C Antibody Negative Negative [facility] Blood 01/23/2023 9:59 AM EST 01/23/2023 10:08 AM EST Narrative Resulting Agency Comment Spec In Lab Linda Shaikh DO CHEMISTRY ORDERABL ES [facility] [place] [address] from Last 3 Months or Most Recently Relevant to Health Maintenance Care Teams Speech And Language Tutor Relationship Specialty Start Date End Date Yesy Nagy APRN [facility] [place] [place] [address] PCP - General Geriatric Medicine 08/02/22
--- OUTSIDE RECORDS SUMMARY | 2024-10-02 19:28 | XMS_ITS | Encounter Summary ---
Author Organization [facility] Address [address] [place] [address] Care Team Providers Care Chief Data Officer Name Role Phone Unknown, Provider MD Primary Care Provider Unava ilable Unknown, Provider MD Unavailable Unavailable Encounter Details Date Type Department Care Team (Late st Contact Info) Description 08/18/2022 Lab Requisition [facility] Pathology & Laboratory Medicine - [facility] [address] [place] [address] Outr Resulting Lab, Provider Social History Tobacco [...] <3.1 See Note mIU/mL 08/21/2022 9:39 EDT [facility] Comment: Reference Range for Hep B Surface Ab, Quant: Positive: >= 10.0 mIU/mL Negative: ??< 10.0 mIU/mL Patient is presumed to not be immune to infection with Hepatitis B Virus. Hep B Surface Ab, Qualitative Negative See Note 08/21/2022 9:39 EDT [facility] Comment: Reference Range for Hep B Surface Ab, Qual: Unvaccinated: ??Negative Vaccinated: ??Positive Blood VENOUS BLOOD / Unknown 08/18/2022 9:08 EDT 08/18/2022 18:19 EDT Provider Outr Resulting Lab CHEMISTRY & BLOOD GAS ORDERABLES Performing Organization Address [facility] Co de Phone Number [facility] [address] [place] [address] * HEPATITIS B CORE ANTIBODY (TOTAL) (08/18/2022 9:08 EDT) Hepatitis B Core Ab, Total Negative Negative 08/21/2022 10:23 EDT [facility] Blood VENOUS BLOOD / Unknown 08/18/2022 9:08 EDT 08/18/2022 18:19 EDT Provider Outr Resulting Lab CHEMISTRY & BLOOD GAS ORDERABLES Performing Organization Address [facility] Co de Phone Number [facility] [address] [place] [address] * HEPATITIS B SURFACE ANTIGEN (08/18/2022 9:08 EDT) Hep B Surface Ag Negative Negative 08/21/2022 9:36 EDT [facility] Blood VENOUS BLOOD / Unknown 08/18/2022 9:08 EDT 08/18/2022 18:19 EDT Provider Outr Resulting Lab CHEMISTRY & BLOOD GAS ORDERABLES Performing Organization Address [facility] Co de Phone Number [facility] [address] [place] [address] * HEPATITIS C AB W REFLEX TO HCV RNA BY PCR (08/18/2022 9:08 EDT) Hep C Antibody Negative Negative 08/21/2022 10:26 EDT [facility] Blood VENOUS BLOOD / Unknown 08/18/2022 9:08 EDT 08/18/2022 18:19 EDT Provider Outr Resulting Lab CHEMISTRY & BLOOD GAS ORDERABLES Performing Organization Address City/State/[facility] Co de Phone Number [facility] [address] [place] [address] documented in this encounter Visit Diagnoses Not on filedocumented in this encounter Care Teams Chief Data Officer Relationship Specialty Start Date End Date Unknown, Provider, PCP - General 11/10/15 Unknown, ProviderMD 11/10/15 documented as of this encounter
--- OUTSIDE RECORDS SUMMARY | 2024-10-02 19:28 | XMS_ITS | Encounter Summary ---
Author Organization [facility] Address [facility] [place] [address] Care Team Providers Care Form Setter Steel Pan Forms Name Role Phone Yesy Nagy APRN Primary Care Provider [phone]- [phone] Reason for Visit * Reason Comments Medication Refill Encounter Details Date Type Department Care Team (Late st Contact Info) Description 04/22/2024 [place] [id number] Thony Dee MD [facility] [place] [address] Social History Tobacco Use Types Packs/Day Years [...] [place], [facility] Note: Judson Patel Jr. Is hoping to decrease his prednisone dosage and keep pain levels at a minimum. He is hoping that Actemra will be able to keep him walking since before prednisone he had a hard time standing up and walking around. documented as of this encounter Visit Diagnoses Not on filedocumented in this encounter Care Teams Form Setter Steel Pan Forms Relationship Specialty Start Date End Date Yesy Nagy APRN [address] [place] [address] PCP - General Geriatric Medicine 08/02/22 documented as of this encounter
--- OUTSIDE RECORDS SUMMARY | 2024-10-02 19:28 | XMS_ITS | Encounter Summary ---
[place] [address] Care Team Providers Care Technical Operations Specialist Name Role Phone Yesy Nagy APRN Primary Care Provider Encounter Details Date Type Department Care Team (Late st Contact Info) Description 07/04/2023 Telephone [place] [address] Landy Monson RN Social [...] - 07/04/2023 2:45 PM EDT Copied from [facility] #[id number]. Topic: Specialty Dept CRMs - Generic Call [...] on filedocumented in this encounter Care Teams Technical Operations Specialist Relationship Specialty Start Date End Date Yesy Nagy APRN [address] [place] [place] [address] PCP - General Geriatric Medicine 08/02/22 documented as of this encounter
--- OUTSIDE RECORDS SUMMARY | 2024-10-02 19:28 | XMS_ITS | Encounter Summary ---
Author Organization [facility] Address [address] [place] [address] Care Team Providers Care Stone Decorator Name Role Phone Unknown, Provider MD Primary Care Provider Unava ilable Unknown, Provider MD Unavailable Unavailable Encounter Details Date Type Department Care Team (Late st Contact Info) Description 01/04/2022 Lab Requisition [facility] Pathology & Laboratory Medicine - [address] [address] Outr Resulting Lab, Provider Social History Tobacco [...] 5.0 - 13.9 umol/L 01/06/2022 8:16 EST [facility] Blood VENOUS BLOOD / Unknown 01/04/2022 7:52 EST 01/04/2022 21:30 EST Narrative [facility] - 01/06/2022 8:16 EST Reference range may not apply to non-fasting samples. ??It is not recommended that EDTA plasma and serum from the same patient be used interchangeably. ??Serum concentrations have been observed to be up to 10% higher than EDTA plasma. Reference range may not apply to serum results. Provider Outr Resulting Lab CHEMISTRY & BLOOD GAS ORDERABLES [facility] [address] [place] [address] documented in this encounter Visit Diagnoses Not on filedocumented in this encounter Care Teams Stone Decorator Relationship Specialty Start Date End Date Unknown, ProviderMD PCP - General 11/10/15 Unknown, ProviderMD 11/10/15 documented as of this encounter
--- OUTSIDE RECORDS SUMMARY | 2024-10-02 19:28 | XMS_ITS | Encounter Summary ---
[place] [address] Care Team Providers Care Fur Mixer Name Role Phone Yesy Nagy MALACHI Primary Care Provider Encounter Details Date Type Department Care Team (Latest Contact Info) Description 07/14/2024 12:55 PM EDT Laboratory Appointment Lab [address] [place] [address] GCA (giant cell arteritis); Neuropathy; [...] [facility] Note: Judson aPtel Jr. Is hoping to decrease his prednisone [...] AM EDT Mika Quiroga MD URINE ORDERABLES [facility] [place] [address] * (ABNORMAL) PEP, Urine Random (07/14/2024 11:53 AM EDT) Albumin, Urine Electrophoresis 70 % total 07/15/2024 3:34 PM EDT [facility] Globulin, Random Urine 30 % total 07/15/2024 3:34 PM EDT [facility] M1 Band, Urine 07/15/2024 3:34 PM EDT [facility] Comment:There is no evidence of clonal free light chains in this patient's urine sample. Protein, Urine 23(H) 0 - 12 mg/dL 07/15/2024 3:34 PM EDT [facility] Urine URINE SPECIMEN / Unknown Non Blood Collection / Unknown 07/14/2024 11:53 AM EDT 07/14/2024 11:53 AM EDT Mika Quiroga MD URINE ORDERABLES Performing Organization Address City/[facility] Co de Phone Number [facility] [place] [address] * Protein, Serum Electrophoresis (07/14/2024 11:53 AM EDT) Blood VENOUS BLOOD SPECIMEN / Unknown Venipuncture / Unknown 07/14/2024 11:53 AM EDT 07/14/2024 11:53 AM EDT Mika Quiroga MD URINE ORDERABLES Performing Organization Address City/[facility]/ZIP Co de Phone Number [facility] [place] [address] * (ABNORMAL) PEP, Serum (07/14/2024 11:53 AM EDT) Protein, Total 6.6 6.1 - 8.0 g/dL 07/15/2024 3:23 PM EDT [facility] Albumin Electrophoresis 4.17 3.20 - 5.20 g/dL 07/15/2024 3:23 PM EDT [facility] Alpha 1 Globulin 0.17 0.10 - 0.30 g/dL 07/15/2024 3:23 PM EDT [facility] Alpha 2 Globulin 0.91(H) 0.40 - 0.90 g/dL 07/15/2024 3:23 PM EDT [facility] Beta Globulin 0.69 0.50 - 1.00 g/dL 07/15/2024 3:23 PM EDT [facility] Gamma Globulin 0.66 0.50 - 1.30 g/dL 07/15/2024 3:23 PM EDT [facility] M1 Band 07/15/2024 3:23 PM EDT [facility] Comment:None Detected Blood VENOUS BLOOD SPECIMEN / Unknown Venipuncture / Unknown 07/14/2024 11:53 AM EDT 07/14/2024 11:53 AM EDT Mika Quiroga MD URINE ORDERABLES [facility] [place] [address] * (ABNORMAL) Hemoglobin A1c (07/14/2024 11:53 AM EDT) Hemoglobin A1c 7.7(H) 4.3 - 5.6 % 07/14/2024 12:34 PM EDT [facility] Comment: Per ADA guidelines, without [...] cell turnover may not be sales representative public utilities of glycemic control. Reference Interval: 4.3 - 5.6% 5.7 - 6.4%: Consistent with prediabetes >=6.5%: Consistent with diagnosis of diabetes mellitus Estimated Average Glucose 07/14/2024 12:34 PM EDT [facility] Comment:Not Calculated. Blood VENOUS BLOOD SPECIMEN / Unknown Venipuncture / Unknown 07/14/2024 11:53 AM EDT 07/14/2024 11:53 AM EDT Narrative [facility] - 07/14/2024 12:34 PM EDT Estimated average glucose (eAG) is calculated from the equation described in: Alejandro BRAGA, Dayana J, Jelly R, et al. ??Translating the A1C assay into estimated average glucose values. ??Diabetes Care 2008:31(8):5786-3002. Additional resources are available on the ADA website (diabetes.org). Mika Quiroga MD CHEMISTRY ORDERABLES Performing Organization Address City/[facility]/ZIP Co de Phone Number [facility] [place] [address] * (ABNORMAL) Vitamin B12 (07/14/2024 11:53 AM EDT) Vitamin B12 1,260(H) 232 - 1,245 pg/mL 07/14/2024 12:52 PM EDT [facility] Blood VENOUS BLOOD SPECIMEN / Unknown Venipuncture / Unknown 07/14/2024 11:53 AM EDT 07/14/2024 11:53 AM EDT Mika Quiroga MD CHEMISTRY ORDERABLES Performing Organization Address [facility] Co de Phone Number [facility] [place] [address] * (ABNORMAL) CRP, acute inflammation (07/14/2024 11:53 AM EDT) C-Reactive Protein 5.6(H) <=4.9 mg/L 07/14/2024 12:38 PM EDT [facility] Blood VENOUS BLOOD SPECIMEN / Unknown Venipuncture / Unknown 07/14/2024 11:53 AM EDT 07/14/2024 11:53 AM EDT Mika Quiroga MD CHEMISTRY ORDERABLES Performing Organization Address City/[facility]/ZIP Co de Phone Number [facility] [place] [address] * (ABNORMAL) Sedimentation rate (07/14/2024 11:53 AM EDT) Sedimentation Rate Automated 57(H) 3 - 46 mm/hr 07/14/2024 12:42 PM EDT [facility] Blood VENOUS BLOOD SPECIMEN / Unknown Venipuncture / Unknown 07/14/2024 11:53 AM EDT 07/14/2024 11:53 AM EDT Mika Quiroga MD HEMATOLOGY ORDERABLE S [facility] [place] [address] * (ABNORMAL) Comprehensive metabolic panel (07/14/2024 11:53 AM EDT) Glucose 199 65 - 199 mg/dL 07/14/2024 12:38 PM EDT [facility] Comment:Glucose Concentratio n >=200 mg/dL plus symptoms is consistent with Diabetes Mellitus. Blood Urea Nitrogen 18 10 - 20 mg/dL 07/14/2024 12:38 PM EDT [facility] Creatinine 1.22 0.80 - 1.50 mg/dL 07/14/2024 12:38 PM EDT [facility] Sodium 137 135 - 145 mMol/L 07/14/2024 12:38 PM EDT [facility] Potassium 4.5 3.5 - 5.0 mMol/L 07/14/2024 12:38 PM EDT [facility] Chloride 97(L) 98 - 107 mMol/L 07/14/2024 12:38 PM EDT [facility] Carbon Dioxide 24 22 - 31 mMol/L 07/14/2024 12:38 PM EDT [facility] Anion Gap 16(H) 5 - 15 mMol/L 07/14/2024 12:38 PM EDT [facility] Calcium 10.2 8.5 - 10.5 mg/dL 07/14/2024 12:38 PM EDT [facility] Protein, Total 7.1 6.1 - 8.0 g/dL 07/14/2024 12:38 PM EDT [facility] Albumin 4.2 3.2 - 5.2 g/dL 07/14/2024 12:38 PM EDT [facility] Aspartate Aminotransferase 13 <=39 unit/L 07/14/2024 12:38 PM EDT [facility] Alanine Aminotransferase 15 0 - 55 unit/L [facility] Alkaline Phosphatase 71 40 - 130 unit/L 07/14/2024 12:38 PM EDT [facility] Bilirubin, Total 0.4 <=1.3 mg/dL 07/14/2024 12:38 PM [facility] Est Glomerular Filtration Rate - Male 62 mL/min/1. 73 m?? 07/14/2024 12:38 PM [facility] Comment: This patient's estimated [...] Fasting Status No 07/14/2024 12:38 PM EDT [facility] Blood VENOUS BLOOD SPECIMEN / Unknown Venipuncture / Unknown 07/14/2024 11:53 AM EDT 07/14/2024 11:53 AM EDT Mika Quiroga MD CHEMISTRY ORDERABLES [facility] [place] [address] * (ABNORMAL) CBC (with Diff) (07/14/2024 11:53 AM EDT) White Blood Cell 16.07(H) 4.00 - 9.50 x10(3)/mc L 07/14/2024 12:42 PM [facility] Red Blood Cell 4.42(L) 4.58 - 5.54 x10(6)/mc L 07/14/2024 12:42 PM [facility] Hemoglobin 13.7 13.7 - 16.5 g/dL 07/14/2024 12:42 PM [facility] Hematocrit 40.4(L) 40.5 - 48.5 % 07/14/2024 12:42 PM [facility] Mean Cell Volume 91.4 82.9 - 93.1 fL 07/14/2024 12:42 PM [facility] Mean Cell Hemoglobin 31.0 27.5 - 32.1 pg 07/14/2024 12:42 PM [facility] Mean Cell Hemoglobin Concentration 33.9 32.0 - 35.7 g/dL 07/14/2024 12:42 PM [facility] Platelet 256 145 - 357 x10(3)/mc L 07/14/2024 12:42 PM [facility] Mean Platelet Volume 9.8 7.6 - 12.9 fL 07/14/2024 12:42 PM [facility] RDW Standard Deviation 44.5 36.0 - 45.0 fL 07/14/2024 12:42 PM [facility] RDW coefficient of variation 13.2 11.4 - 13.8 % 07/14/2024 12:42 PM [facility] NRBC% auto 0.0 % 07/14/2024 12:42 PM [facility] NRBC Absolute 0.00 0.00 - 0.00 x10(3)/mc L 07/14/2024 12:42 PM [facility] Neutrophil % 83.2 % 07/14/2024 12:42 PM [facility] Neutrophil Absolute (ANC) - Automated 13.36(H) 1.70 - 6.10 x10(3)/mc L 07/14/2024 12:42 PM EDT [facility] Lymph % 10.8 % 07/14/2024 12:42 PM EDT [facility] Lymph Absolute 1.74 0.90 - 3.20 x10(3)/mc L 07/14/2024 12:42 PM EDT [facility] Monocyte % 4.2 % 07/14/2024 12:42 PM EDT [facility] Monocyte Absolute 0.68 0.30 - 0.90 x10(3)/mc L 07/14/2024 12:42 PM EDT [facility] Eos % 0.2 % 07/14/2024 12:42 PM EDT [facility] Eos Absolute 0.03 0.00 - 0.40 x10(3)/mc L 07/14/2024 12:42 PM EDT [facility] Basophil % 0.2 % 07/14/2024 12:42 PM EDT [facility] Baso Absolute 0.04 0.00 - 0.10 x10(3)/mc L 07/14/2024 12:42 PM EDT [facility] Immature Gran % 1.4 % 12:42 PM EDT [facility] Immature Gran Absolute 0.22(H) 0.00 - 0.04 x10(3)/mc L 07/14/2024 12:42 PM EDT [facility] Blood VENOUS BLOOD SPECIMEN / Unknown Venipuncture / Unknown 07/14/2024 11:53 AM EDT 07/14/2024 11:53 AM EDT Mika Quiroga MD HEMATOLOGY ORDERABLE S [facility] [place] [address] documented in this encounter Visit Diagnoses Diagnosis GCA (giant cell arteritis) Giant cell arteritis Neuropathy Mononeuritis of unspecified site Prediabetes Other abnormal glucose documented in this encounter Care Teams Fur Mixer Relationship Specialty Start Date End Date Yesy Nagy APRN [address] [place] [address] PCP - General Geriatric Medicine 08/02/22 documented as of this encounter
--- OUTSIDE RECORDS SUMMARY | 2024-10-02 19:28 | XMS_ITS | Encounter Summary ---
Author Organization [facility] [place] [address] Care Team Providers Care Online Content Editor Name Role Phone Yesy Nagy APRN Primary Care Provider +- [phone] Reason for Visit * Reason Onset Date Comments Triage 09/10/2023 Encounter Details Date Type Department Care Team (Late st Contact Info) Description 09/10/2023 [place] [id number] Dia Rosario RN Triage Social History Tobacco [...] other day that crept up from his yazidi over the top of his head. Pt [...] 9:59 AM EDT Copied from [facility] #[id number]. Topic: Specialty Dept CRMs - Triage >> [...] Danica [place], [facility] Note: Judson Nagel Jorge Cisse. Is hoping to decrease his prednisone dosage and keep pain levels at a minimum. He is hoping that Actemra will be able to keep him walking since before prednisone he had a hard time standing up and walking around. documented as of this encounter Visit Diagnoses Not on filedocumented in this encounter Care Teams Online Content Editor Relationship Specialty Start Date End Date Yesy Nagy APRN [address] [place] [place] [address] PCP - General Geriatric Medicine 08/02/22 documented as of this encounter
--- OUTSIDE RECORDS SUMMARY | 2024-10-02 19:28 | XMS_ITS | Encounter Summary ---
[place] [address] Care Team Providers Care Physician Assistant Primary Care Name Role Phone Yesy Nagy APRN Primary Care Provider +[phone]- [phone] Reason for Referral * Consultation (Routine) - Closed Specialty Diagnoses / Procedures Referred By Contac t Referred To Contact Rheumatology Diagnoses GCA (giant cell arteritis) PMR (polymyalgia rheumatica) Ananya Payan [facility] [place] [address] Referral ID Status Reason Start Date Expiration Date V isits Requested Visits Authorized [id number] Closed Consult, Test & Treat 01/17/2024 07/15/2024 1 1 Encounter Details Date Type Department Care Team (Latest Contact Info) Description 01/17/2024 10:00 AM EST TH Visit (TeleHealth) [place] [address] Ananya Payan, [facility] [address] GCA (giant cell arteritis); PMR (polymyalgia rheumatica) [...] continue this visit. Total telephone visit time: [id number] for a total 30 minutes. - pt [...] -DEXA- 09/17: normal Interval History: Reported developed nondenominational pain, TORRES on 5 mg prednisone- increased on own back to 7 mg with improvement in sxs. - Report he has been doing well on 7mg daily of prednisone - no TORRES, nondenominational pain, joint pain, morning stiffness, vision changes. - no fever, chills - reports he is moving to [place] to live with his sister in [facility]. Pt reports he grew up in [...] to transfer care and establish with new [facility] in [place]. Referral sent to [facility] as that is the closest [facility]. Would consider,MTX, Orencia as steroid spearing agent. Will order inflammatory markers today. Plan - Continue Prednisone 7.5 mg daily - ordered CRP, ESR - Discuss DMARD steroid sparing options to start when you establish care in [place] - Referral sent to [facility]ology today as pt is moving to [place]. - follow up if needed. Patient was discussed with Dr. Luis Payan DO Rheumatology Fellow Pager: [phone] * Pravin Smith MD - 01/17/2024 10:00 AM EST Attending Addendum The patient had a TeleHealth visit with Dr. Ananya Payan, rheumatology fellow I. We reviewed the patient's interval history and Dr. Payan's management plan. I agree with Dr. Payan's assessment and plan. I did not directly interact with the patient. Pravin Smith MD Staff [facility] documented in this encounter Plan of Treatment Scheduled Referrals Name Type Priority Associated Diagnoses Order Schedule Referral to Rheumatology Outpatient Referral Routine GCA (giant cell arteritis) PMR (polymyalgia rheumatica) Ordered: 01/17/2024 documented as of this encounter Goals Goal Patient Goal Type Associated Problems Recent Progress Patient-Stated? Author DH Self-Management Patient Facing Action Plan No Danica [place], [facility] Note: Judson Patel JrRandy Is [...] rheumatica documented in this encounter Care Teams Physician Assistant Primary Care Relationship Specialty Start Date End Date Yesy Nagy APRN [address] [place] [address] PCP - General Geriatric Medicine 08/02/22 documented as of this encounter
--- OUTSIDE RECORDS SUMMARY | 2024-10-02 19:28 | XMS_ITS | Encounter Summary ---
Author Organization [facility] Address [address] [place] [address] Care Team Providers Care Joint Terminal Attack Controller Name Role Phone Unknown, Provider MD Primary Care Provider Unava ilable Unknown, Provider MD Unavailable Unavailable Encounter Details Date Type Department Care Team (Late st Contact Info) Description 12/02/2021 Lab Requisition [facility] Pathology & Laboratory Medicine - [address] [address] Outr Resulting Lab, Provider Social History Tobacco [...] 0.0 - 6.5 ng/mL 12/02/2021 17:18 EST [facility] Blood VENOUS BLOOD / Unknown 12/02/2021 7:48 EST 12/02/2021 15:54 EST Narrative [facility] - 12/02/2021 17:18 EST NOTE: Serum PSA concentration should not be interpreted as absolute evidence for the presence or absence of malignant disease. Assayed on Siemens ADVIA StemPathaur XPT using chemiluminescent technology.??Values obtained by using different assay methods cannot be used interchangeably. Provider Outr Resulting Lab CHEMISTRY & BLOOD GAS ORDERABLES [facility] [address] [place] [address] documented in this encounter Visit Diagnoses Not on filedocumented in this encounter Care Teams Joint Terminal Attack Controller Relationship Specialty Start Date End Date Unknown, ProviderMD PCP - General 11/10/15 Unknown, ProviderMD 11/10/15 documented as of this encounter
--- OUTSIDE RECORDS SUMMARY | 2024-10-02 19:28 | XMS_ITS | Encounter Summary ---
Author Organization [facility] [place] [address] Care Team Providers Care Hot Top Liner Helper Name Role Phone Yesy Nagy APRN [...] Danica [place], [facility] Note: Judson Robe Patel Jr. Is hoping to decrease his prednisone dosage and keep pain levels at a minimum. He is hoping that Actemra will be able to keep him walking since before prednisone he had a hard time standing up and walking around. documented as of this encounter Visit Diagnoses Not on filedocumented in this encounter Care Teams Hot Top Liner Helper Relationship Specialty Start Date End Date Yesy Nagy APRN [address] [place] [address] PCP - General Geriatric Medicine 08/02/22 documented as of this encounter
--- OUTSIDE RECORDS SUMMARY | 2024-10-02 19:28 | XMS_ITS | Encounter Summary ---
Author Organization [facility] Address [facility] [place] [address] Care Team Providers Care Second Helper Name Role Phone Yesy Nagy APRN Primary Care Provider [phone]- [phone] Encounter Details Date Type Department Care Team (Late st Contact Info) Description 06/29/2023 Telephone Dermatology at [facility] [address] [place] [address] Rafa Rachel MD [facility] [address] [place] [address] Social History Tobacco Use Types Packs/Day Years [...] [place], [facility] Note: Judson Robe Patel Jr. Is hoping to decrease his prednisone dosage and keep pain levels at a minimum. He is hoping that Actemra will be able to keep him walking since before prednisone he had a hard time standing up and walking around. documented as of this encounter Visit Diagnoses Not on filedocumented in this encounter Care Teams Second Helper Relationship Specialty Start Date End Date Yesy Nagy APRN [address] [place] [address] PCP - General Geriatric Medicine 08/02/22 documented as of this encounter
--- OUTSIDE RECORDS SUMMARY | 2024-10-02 19:28 | XMS_ITS | Encounter Summary ---
Author Organization [facility] Address [facility] [place] [address] Care Team Providers Care Paper Cone Machine Operator Name Role Phone Yesy Nagy APRN Primary Care Provider Encounter Details Date Type Department Care Team (Late st Contact Info) Description 04/30/2024 Telephone [place] [address] Brittni Hamilton Social History Tobacco [...] on filedocumented in this encounter Care Teams Paper Cone Machine Operator Relationship Specialty Start Date End Date eYsy Nagy APRN [address] [place] [address] PCP - General Geriatric Medicine 08/02/22 documented as of this encounter
--- OUTSIDE RECORDS SUMMARY | 2024-10-02 19:28 | XMS_ITS | Encounter Summary ---
Author Organization [facility] Address [address] [place] [address] Care Team Providers Care Residential Field Manager Name Role Phone Unknown, Provider MD Primary Care Provider Unava ilable Unknown, Provider MD Unavailable Unavailable Encounter Details Date Type Department Care Team (Late st Contact Info) Description 06/19/2024 Lab Requisition [facility] Pathology & Laboratory Medicine - [address] [address] Outr Resulting Lab, Provider Social History Tobacco [...] <=6.5 ng/mL 06/19/2024 20:29 EDT [facility] Blood VENOUS BLOOD / Unknown 06/19/2024 8:55 EDT 06/19/2024 19:29 EDT Narrative [facility] - 06/19/2024 20:29 EDT NOTE: Serum PSA concentration should not be interpreted as absolute evidence for the presence or absence of malignant disease. Assayed on Siemens [employer] XPT using chemiluminescent technology.??Values obtained by using different assay methods cannot be used interchangeably. Provider Outr Resulting Lab CHEMISTRY & BLOOD GAS ORDERABLES [facility] [address] [place] [address] documented in this encounter Visit Diagnoses Not on filedocumented in this encounter Care Teams Residential Field Manager Relationship Specialty Start Date End Date Unknown, Provider, PCP - General 11/10/15 Unknown, ProviderMD 11/10/15 documented as of this encounter
--- OUTSIDE RECORDS SUMMARY | 2024-10-02 19:28 | XMS_ITS | Encounter Summary ---
Author Organization [facility] Address [facility] [place] [address] Care Team Providers Care Manager Net Name Role Phone Yesy Nagy APRN Primary Care Provider [phone] Encounter Details Date Type Department Care Team (Latest Contact Info) Description 09/18/2023 4:00 PM EDT TH Visit (TeleHealth) [place] [phone] Ananya Payan DO [facility] DR RHEUMATOLOGY [place] [address] GCA (giant cell arteritis) Social History Tobacco [...] Ananya Payan DO or the rooming assistant golf professional as documented in their note. This visit [...] ESR CRP -We will obtain records from [facility] from recent admission to review -Recommend DEXA scan for osteoporosis due to long-term steroid use -Follow-up in 3 months Patient was discussed with Dr. Andres Payan DO Rheumatology Fellow Pager: [phone] documented in this encounter Plan of Treatment Not on file documented as of this encounter Goals Goal Patient Goal Type Associated Problems Recent Progress Patient-Stated? Author DH Self-Management Patient Facing Action Plan No Danica Taylor, [facility] Note: Judson Robe Patel Jr. Is [...] arteritis documented in this encounter Care Teams Manager Net Relationship Specialty Start Date End Date Yesy Nagy APRN [address] [place] [address] PCP - General Geriatric Medicine 08/02/22 documented as of this encounter
--- OUTSIDE RECORDS SUMMARY | 2024-10-02 19:28 | XMS_ITS | Data Portability ---
Author Organization [place] [facility], MAIN OFFICE Address [address] [place] [phone] Assessment Encounter Date Assessment Date Assessment LastModified [...] recorded. Lab lipoprotein (A), serum 2021 022 [facility] (Registration ), [address] [place] [address] Dr, [place], [address], 2 05:00:50 homocystein e, serum or plasma 2021 [facility] (Registration ), [address] [place] [address] Dr [facility] [place], [address], 2 05:00:50 magnesium, serum or plasma 2021 [facility] (Registration ), [address] [place] [address] Dr [facility] [place], [address], 2 05:00:50 electrolyte panel, serum 2021 [facility] (Registration ), [address] [place] [address] Dr [facility] [place], [address], 2 05:00:50 vitamin D, 25-hydroxy, total, serum 2021 022 [facility] (Registration ), [address] [place] [address] [place], [address], 2 05:00:50 vitamin B12 + folate, serum or blood 2021 022 [facility] (Registration ), [address] [place] [address] [place], [address], 2 05:00:50 CBC w/ diff 2021 022 [facility] (Registration ), [address] [place] [address] [place], [address], 2 05:00:50 iron + TIBC + ferritin, serum 2021 022 [facility] (Registration ), [address] [place] [address] Dr [facility] [place], [address], 2 05:00:50 testosteron e, free + total, w/ shbg, serum 2021 022 [facility] (Registration ), [address] [place] [address] Dr, [place], [address], 05:01:12 dhea-sulfat e, serum 2021 022 [facility] (Registration ), [address] [place] [address] [place], [address], 2 05:01:12 estrogen, total, serum 2021 022 [facility] (Registration ), [address] [place] [address] [place], [address], 05:01:12 Referral None recorded. Procedures None recorded. [...] pro-omega 1000mg-1 cap 2xday or another by [employer] 4. NEXT VISIT- bring bag of vitamins go over labwork next visit magnesium taurate 1 cap 2xday ther-biotic 1 cap 2xday Coq10 1 cap/day [place] 40 drops 3xday Not available 12/21/2021 12:39:51 01/11/2022 8831 Decreased Male Libido: Care Instructions Not available 01/20/2022 14:41:35 high cholesterol : care instructions kknight Not available 01/20/2022 14:41:35 1 pure genomics b complex 1 cap/day 2.Do not take citruline products right now- 3. Hormone testing -at [facility]- to see if testosterone is [...] Address Organization Details Recorded Time Hypertensive disorder 43937867 Active 2021 Nathalie Read [address], [address], [facility] 2 11:49:13 Neuropathy 870819113 Active 2021 Nathalie Davidanthony [address], [address], [facility] 2 11:49:38 Hyperlipidemia 15672852 Active 2021 Nathalie Read [place] [address] [place] [address], [phone], [facility] 2 11:49:50 Family history of Cardiovascular disease 623769389 Active 2021 Nathalie ReadKERRI [address] [place] [address], [phone], [facility] 2 10:51:12 Fatigue 35051719 Active 2021 Nathalie DavidanthonyKERRI [address] [place] [address], [phone], [facility] 2 10:51:13 Vitamin D deficiency 49228337 Active 2021 Nathalie DavidanthonyKERRI [address] [place] [address], [phone], [facility] 2 10:51:16 Benign prostatic hyperplasia 212504302 Active 2021 Nathalie Read ND [address] [place] [address], [phone], [facility] 2 15:02:37 Problem Notes None recorded. Procedures Surgical History Date Name Laterality Status Provider Name and Address Organization Details Recorded Time 11/26/18 54 Removal of tonsils completed Nathalie Read ND [address] [place] [phone], [facility] 12/21/2021 11:56:41 11/26/18 53 Appendectomy completed Nathalie Read ND [address] [place] [phone], Critical access hospital [facility] 12/21/2021 11:56:11 Imaging Results None recorded. [...] Address Organization Details Last Updated DateTime 2 [address].6 7 g 23.5 kg/m2 168.91 cm 69.97 /min 96.98 % 96.98 % 138 mm[Hg] 60 mm[Hg] Nathalie Read ND [address] [place] [address], [phone], [facility] 2 11:48:04 Date Recorded Body height Systolic blood pressure Diastolic blood pressure Provider Name and Address Organization Details Last Updated DateTime 03/21/2022 168.91 cm 138 mm[Hg] 66 mm[Hg] Nathalie Read ND [address] [place] [address], [phone], [facility] 03/21/2022 15:04:52 Social History [...] 8733 Nathalie Read ND MAIN OFFICE [address] [place] [phone] 12/21/2021 11:36:00 01/03/2022 11:56:15 Family history of Cardiovascular disease 492368571 Z82.49 Fatigue 06842777 R53.83 Vitamin D deficiency 347 [address] E55.9 Hypertensive disorder 38 064446 I10 Neuropathy 651445970 G62 .9 8831 Nathalie Read ND MAIN OFFICE [address] [place] [address] 01/11/2022 13:30:54 01/20/2022 14:41:50 Reduced libido 6304549 R68.82 Hyperlipidemia 29665313 E78.5 Vitamin D deficiency 347 58527 E55.9 Hypertensive disorder 38 885865 I10 9010 Nathalie Read ND MAIN OFFICE [address] [place] [address] 03/21/2022 14:38:41 04/06/2022 10:08:27 Benign prostatic hyperplasia 124381127 N40.0 Hyperlipidemia 72539410 E78.5 Health Concerns Section Related Observation LastModified by Organization Detai ls LastModified Time None Recorded Concern Status LastModified by Organization Details LastModified Time None Recorded Advance Directives Directive None Recorded Payers Encounter Date Sequence Insurance Name Policy Number Policy Rivera Covered Member ID Rivera Member ID Guarantor Name 12/21/2021 1 [facility] (MEDICAID) Judson Patel [id number] Judson Patel 01/11/2022 1 [facility] (MEDICAID) Judson Patel [id number] Judson Patel 03/21/2022 1 [facility] (MEDICAID) Judson Patel [id number] Judson Patel Notes Date Note Type Note [...] for many years- Nathalie Read ND [address] [facility], [place], [address], [facility] 01/03/2022 11:03:14 01/11/2022 text/html HPI Notes: lab [...] what to discard. Nathalie Read ND [address] [facility], [place], [address], [facility] 01/20/2022 14:41:41 03/21/2022 text/html HPI Notes: 130/6 6 amlopidine seems to be working well- below- he started niacin- and he gets a lot of itching- with it- but itching comes days later- reviewed plan with baby askipirn and extra water Nathalie Read ND [address] [facility], [place], [address], [facility] 03/21/2022 15:05:24
--- OUTSIDE RECORDS SUMMARY | 2024-10-02 19:28 | XMS_ITS | Continuity of Care Document ---
Author Organization [facility] Address [address] [place] [address] Care Team Providers Care Chief Radiology Name Role Phone EDDIE FRAZIER Primary Care Physician Encounter [facility] NBR [id number] Date(s): 11/01/23 - 11/01/23 [facility] [address] [place] [address] [place] Encounter Diagnosis Lesion of skin of nose(Discharge Diagnosis) - 10/30/23 Disorder of the skin and subcutaneous tissue, unspecified(Final) - Discharge Disposition: Home or Self Care Attending Physician: DARLINE Ferrell Referring Physician: EDDIE FRAZIER Allergies, Adverse Reactions, Alerts Substance Reaction Severity Status atenolol Dizziness Unknown Active amoxicillin Vomit Unknown Active Clavulanic acid Vomit Unknown Active Assessment and Plan Future Appointments Medications amLODIPine 5 mg oral tablet 5 mg = 1 tab, Oral, Daily, # 30 tab, 0 Refill(s) Start Date: 10/30/23 Status: Ordered aspirin 325 mg oral capsule 325 mg = 1 cap, Oral, Daily, # 30 cap, 0 Refill(s) Start Date: 10/30/23 Status: Ordered calcium carbonate 600 mg (elemental Ca 240 mg) oral tablet 600 mg 1 tab, Oral, BID, # 60 tab, 0 Refill(s) Start Date: 10/30/23 Status: Ordered predniSONE 1 mg oral tablet 1 mg = 1 tab, Oral, Daily, with food or milk, # 30 tab, 0 Refill(s) Start Date: 10/30/23 Status: Ordered tamsulosin 0.4 mg oral capsule 0.8 mg = 2 cap, Oral, Daily, # 30 cap, 0 Refill(s) Start Date: 10/30/23 Status: Ordered Vitamin B Complex oral capsule 1 cap, Oral, Daily, # 30 cap, 0 Refill(s) Start Date: 10/30/23 Status: Ordered Vitamin D3 0 Refill(s) Start Date: 10/30/23 Status: Ordered Problem List Condition Confirmation Course Effective Dates Status H ealth Status Informant Anemia Confirmed Active Anxiety Confirmed Active Benign prostatic hyperplasia Confirmed Active Diverticulosis Confirmed Active GERD (gastroesophageal reflux disease) Confirmed Active History of alcohol abuse Confirmed Active Hyperlipemia Confirmed Active Hypertension Confirmed Active Hepatomegaly Confirmed Active Lesion of skin of nose Confirmed Active Peripheral neuropathy Confirmed Active PMR (polymyalgia rheumatica) Confirmed Active Tachycardia Confirmed Active GCA (giant cell arteritis) Confirmed Active Social History Social History Type Response Tobacco Former tobacco user Tobacco Use:. 1 Sex 1quit smoking in 1970. Physician Outpatient Note * DARLINE Ferrell: PERFORM DARLINE Ferrell: PERFORM, MODIFY DARLINE Ferrell: MODIFY Event Display: Office Clinic Note Physician Authored Date: [id number] SARA DIETZ :1950 Age:73 years Sex:Male Visit Date:11/01/2023 Primary Care Physician: EDDIE FRAZIER Chief Complaint Skin lesion on nose History of Present Illness New patient in office today referred for two skin lesions on nose. Patient stated has been experiencing this for months and it has been constant and has not worsen or gotten better. Patient reports that they will occasionally itch. Patient reports sun exposure for long periods of time when he was younger, and denies using sunscreen. Review of Systems Fatigue??positive.?? Fever?? Negative.?? Weight Loss?? Negative.?? Snoring?? Negative.?? Hoarseness?? Negative.?? Glaucoma?? Negative.?? Double Vision?? Negative.?? Other eye problems?? Negative.?? Loss of taste?? Negative.?? Loss of smell?? Negative.?? Sinus trouble?? Negative.?? Difficulty swallowing?? Negative.?? High blood pressure??positive.?? Heart failure?? Negative.?? Chest pain/Angina?? Negative.?? Heart Attack?? Negative.?? Ankle/Foot swelling?? Negative.?? Shortness of breath?? Negative.?? High cholesterol??positive.?? Cough?? Negative.?? Diabetes?? Negative.?? Ulcer?? Negative.?? Blood in Stool ?? Negative.?? Colitis?? Negative.?? Prostate Problems?? Negative.?? Kidney Stones?? Negative.?? Hepatitis?? Negative.?? Liver trouble?? Negative.?? Gall bladder problems?? Negative.?? Kidney infection?? Negative.?? Blood in urine?? Negative.?? Bladder infection?? Negative.?? Arthritis?? Negative.?? Fibromyalgia?? Negative.?? Bone disease?? Negative.?? Joint disease?? Negative.?? Back problems?? Negative.?? Breast (lump/tumor)?? Negative.?? Rashes??positive eczema?? Negative.?? Headaches?? Negative.?? Meningitis?? Negative.?? Thyroid Problems?? Negative.?? Pituitary Problems?? Negative.?? Bleeding Disorder?? Negative.?? Anemia??positive.?? Lymphoma?? Negative.?? Venereal Disease?? Negative.?? AIDS/HIV?? Negative.?? Cancer?? Negative.?? Blood transfusion?? Negative.?? Seizures?? Negative.?? Loss of consciousness?? Negative.?? Head Injury/concussion?? Negative.?? Multiple Sclerosis?? Negative.?? Nervous disorder?? Negative.?? Anxiety??positive.?? Depression?? Negative.?? Frequent infection?? Negative.?? Environmental allergies?? Negative.?? Hay Fever?? Negative.?? Reflux??positive sleep apnea?? Negative.?? Physical Exam GENERAL APPEARANCE:??The patient is awake, alert, and oriented and in no acute distress, Appears nutritionally sound, Healthy in appearance, Voice is strong, with no stridor or stertor, Handling secretions without difficulty.?PSYCH:??affect normal, good eye contact, oriented to person, oriented to place, oriented to time.?NEURO:??CN's II-XII grossly intact, Gait is normal, ?HEENT:??The patient is normocephalic with a normal facies with cranial nerves 2 through 12 bilaterally equal and intact. Pupils are equal and reactive to light with extraocular movements bilaterally equal and intact. There is no proptosis or enophthalmos,??NOSE:, Significant nasal septal deviation to the left with spurring, the inferior turbinates are within normal limits, The middle meati are unremarkable with no polyps, masses or purulent discharge, ?NECK:??There is no palpable lymphadenopathy.?HEART:??regular rate and rhythm.?LUNGS:??No tachypnea or labored breathing ?SKIN:??2 irritated??lesions of the nose??of unclear etiology both under??4 mm diameter. ??Photo documented.?? Scattered areas of acne. ?MUSCULOSKELETAL:??normal gait and station.?? Procedure Cryotherapy was performed??after verbal consent given. ??Allowed for full freeze thaw cycle x 3 of both lesions.?? Post??cryotherapy care instructions were reviewed.?? Well-tolerated without complication. Assessment/Plan 1.??Lesion of skin of nose??L98.9 Skin lesions of the nose??noted as above. ??Photodocumented.?? They are somewhat irritated but he does note that he has been picking at them. ??Possible??premalignant lesions and recommend treatment with??cryotherapy today versus biopsy or Efudex. ??We proceeded with cryotherapy as above??on both le sions.?? We will follow-up for recheck in 3 months. ??If still present consider biopsy or Efudex depending on??appearance at that time. ?? Additionally??nasal deformity was noted and nose is examined showing significant nasal septal deviation to the left with obstruction of the left nares.?? Briefly??discussed??septoplasty.?? At thistime declines. Problem List/Past Medical History Ongoing Anemia Anxiety Benign prostatic hyperplasia Diverticulosis GCA (giant cell arteritis) GERD (gastroesophageal reflux disease) Hepatomegaly History of alcohol abuse Hyperlipemia Hypertension Lesion of skin of nose Peripheral neuropathy PMR (polymyalgia rheumatica) Tachycardia Historical No qualifying data Medications amLODIPine 5 mg oral tablet, 5 mg= 1 tab, Oral, Daily aspirin 325 mg oral capsule, 325 mg= 1 cap, Oral, Daily calcium carbonate 600 mg (elemental Ca 240 mg) oral tablet, 600 mg= 1 tab, Oral, BID predniSONE 1 mg oral tablet, 1 mg= 1 tab, Oral, Daily tamsulosin 0.4 mg oral capsule, 0.8 mg= 2 cap, Oral, Daily Vitamin B Complex oral capsule, 1 cap, Oral, Daily Vitamin D3 Allergies Clavulanic acid??(Vomit) amoxicillin??(Vomit) atenolol??(Dizziness) Electronically Signed on 11/01/23 11:51 AM DARLINE Ferrell Patient Care team information Care Team Personnel Name: EDDIE FRAZIER Position: No Access Member Role: Primary Care Physician Address: Address: [address] [place] [id number] [place] [address]
--- OUTSIDE RECORDS SUMMARY | 2024-10-02 19:28 | XMS_ITS | Encounter Summary ---
Author Organization [facility] Address [address] [place] [address] Care Team Providers Care Doctor Of Audiology Name Role Phone Unknown, Provider Primary Care Provider Unava ilable Unknown, Provider MD Unavailable Unavailable Encounter Details Date Type Department Care Team (Late st Contact Info) Description 05/14/2023 Lab Requisition [facility] Pathology & Laboratory Medicine - [address] [address] Outr Resulting Lab, Provider Social History Tobacco [...] ID No fungi isolated 06/12/2023 7:44 EDT [facility] Blood VENOUS BLOOD / Unknown 05/14/2023 12:10 EDT 05/14/2023 17:19 EDT Provider Outr Resulting Lab MICROBIOLOGY - GENERAL ORDERABLES [facility] [address] [place] [address] documented in this encounter Visit Diagnoses Not on filedocumented in this encounter Care Teams Doctor Of Audiology Relationship Specialty Start Date End Date Unknown, Provider, PCP - General 12/16/15 Unknown, Provider, 11/10/15 documented as of this encounter
--- OUTSIDE RECORDS SUMMARY | 2024-10-02 19:29 | XMS_ITS | Encounter Summary ---
Author Organization [facility] Address [facility] [place] [address] Care Team Providers Care Telecommunications Linesworker Name Role Phone Yesy Nagy MALACHI Primary Care Provider Encounter Details Date Type Department Care Team (Late st Contact Info) Description 01/22/2023 Orders [place] [phone] Ananya Payan, [facility] [place] [address] prison current use of systemic steroids; GCA (giant [...] (ABNORMAL) Sedimentation rate (01/23/2023 9:59 AM EST) [facility] Sedimentation Rate Automated 51(H) 3 - 46 mm/hr [facility] Comment: Effective November 05, 2019 new capillary photometric technology has resulted in a change in reference ranges. It is recommended that each ESR result be reviewed with its own age appropriate reference range. Blood 01/23/2023 9:59 AM EST 01/23/2023 10:08 AM EST Narrative Resulting Agency Comment Spec In Lab Linda Shaikh DO HEMATOLOGY ORDERAB LES Performing Organization Address City/[facility]/ZIP Co de Phone Number [facility] [place] [address] * (ABNORMAL) CRP, acute inflammation (01/23/2023 9:59 AM EST) C-Reactive Protein 5.2(H) <=4.9 mg/L [facility] Blood 01/23/2023 9:59 AM EST 01/23/2023 10:08 AM EST Narrative Resulting Agency Comment Spec In Lab Linda Shaikh DO CHEMISTRY ORDERABL ES Performing Organization Address City/[facility] Co de Phone Number [facility] [place] [address] documented in this encounter Visit Diagnoses Diagnosis prison current use of systemic steroids Encounter for long-term (current) use of steroids GCA (giant cell arteritis) Giant cell arteritis documented in this encounter Care Teams Telecommunications Linesworker Relationship Specialty Start Date End Date Yesy Nagy APRN [address] [facility] [address] PCP - General Geriatric Medicine 08/02/22 documented as of this encounter
--- OUTSIDE RECORDS SUMMARY | 2024-10-02 19:29 | XMS_ITS | Encounter Summary ---
Author Organization [facility] [place] [address] Care Team Providers Care Casting Wheel Operator Helper Name Role Phone Yesy Nagy APRN Primary Care Provider [phone] Encounter Details Date Type Department Care Team (Late st Contact Info) Description 04/16/2023 Telephone [place] [address] Landy Monson RN Social History [...] to provider the following message for Dr cShuyler DO: The patient agreed and hopes this [...] discuss concerns. The patient is currently at [facility] ED as he has a [...] are to the front and Right side adventism. No concerns with swallowing,PND,Sinus Sx. o c/o SOB/FUNG. States he has an appt with Dr Schuyler DO on 04/24/2023? Nurse said this was with the Neurologist, not Semiconductor Technician. The patient thought it was, but would [...] Facing Action Plan No Danica Taylor, [facility] Note: Judson Robe Patel Jr. Is hoping to decrease his prednisone dosage and keep pain levels at a minimum. He is hoping that Actemra will be able to keep him walking since before prednisone he had a hard time standing up and walking around. documented as of this encounter Visit Diagnoses Not on filedocumented in this encounter Care Teams Casting Wheel Operator Helper Relationship Specialty Start Date End Date Yesy Nagy APRN [address] [place] [id number] PCP - General Geriatric Medicine 08/02/22 documented as of this encounter
--- OUTSIDE RECORDS SUMMARY | 2024-10-02 19:29 | XMS_ITS | Encounter Summary ---
Author Organization [facility] [place] [address] Care Team Providers Care Research Investigator Name Role Phone Yesy Nagy APRN Primary Care Provider [phone] Encounter Details Date Type Department Care Team (Late st Contact Info) Description 05/09/2023 Telephone [place] [address] Landy Monson RN Social History [...] filedocumented in this encounter Care Teams Research Investigator Relationship Specialty Start Date End Date Yesy Nagy APRN [address] [place] [address] PCP - General Geriatric Medicine 08/02/22 documented as of this encounter
--- OUTSIDE RECORDS SUMMARY | 2024-10-02 19:29 | XMS_ITS | Encounter Summary ---
[place] [address] Care Team Providers Care Surgeon'S Assistant Name Role Phone MikeYesy Swenson MALACHI Primary Care Provider Encounter Details Date Type Department Care Team (Latest Contact Info) Description 05/31/2023 10:15 AM EDT Laboratory Appointment Lab [address] [place] [address] GCA (giant cell arteritis); Immunosuppressed [...] 10:18 AM EDT) Neutrophil % 61.4 % [facility] Neutrophil Absolute 4.38 1.70 - 6.10 x10(3)/mc L [facility] Lymph % 25.0 % [facility] Lymphocytes Abs 1.8 0.9 - 3.2 x10(3)/mc L [facility] Monocyte % 11.4 % [facility] Monocyte Abs 0.8 0.3 - 0.9 x10(3)/mc L [facility] Eos % 1.1 % [facility] Eosinophils Abs 0.1 0.0 - 0.4 x10(3)/mc L [facility] Basophil % 0.4 % [facility] Baso Absolute 0.0 0.0 - 0.1 x10(3)/mc L [facility] Immature Gran % 0.70 % [facility] Comment: Immature granulocytes(IG's)percentage and absolute count will include metamyelocytes, myelocytes, and promyelocytes. Blood smears from CBCs yielding IG's will be scanned manually for concordance. If this scan disagrees with the automated IG or if promyelocytes are noted, a manual differential will be performed. Immature Gran Absolute 0.05(H) 0.00 - 0.04 x10(3)/mc L [facility] Blood 05/31/2023 10:1 8 AM EDT 05/31/2023 10:37 AM EDT Narrative Resulting Agency Comment Spec In Lab Ananya Payan HEMATOLOGY ORDERABLE S Performing Organization Address City/[facility]/ZIP Co de Phone Number [facility] [place] [address] * (ABNORMAL) Hemogram (05/31/2023 10:18 AM EDT) White Blood Cell 7.1 4.0 - 9.5 x10(3)/mc L [facility] Red Blood Cell 4.26(L) 4.58 - 5.54 x10(6)/mc L [facility] Hemoglobin 14.2 13.7 - 16.5 g/dL [facility] Hematocrit 40.3(L) 40.5 - 48.5 % [facility] Mean Cell Volume 94.6(H) 82.9 - 93.1 fL [facility] Mean Cell Hemoglobin 33.3(H) 27.5 - 32.1 pg [facility] Mean Cell Hemoglobin Concentration 35.2 32.0 - 35.7 g/dL [facility] Platelet 195 145 - 357 x10(3)/mc L [facility] RDW Standard Deviation 47.1(H) 36.0 - 45.0 fL [facility] RDW coefficient of variation 13.6 11.4 - 13.8 % [facility] Mean Platelet Volume 9.8 7.6 - 12.9 fL [facility] NRBC% auto 0.0 % [facility] NRBC Absolute 0.000 0.000 - 0.000 x10(3)/mc L [facility] Blood 05/31/2023 10:1 8 AM EDT 05/31/2023 10:37 AM EDT Narrative Resulting Agency Comment Spec In Lab Ananya Payan DO HEMATOLOGY ORDERABLE S Performing Organization Address City/[facility]/ZIP Co de Phone Number [facility] [place] [address] * CRP, acute inflammation (05/31/2023 10:18 AM EDT) [facility] C-Reactive Protein <3.0 <=4.9 mg/L [facility] Blood 05/31/2023 10:1 8 AM EDT 05/31/2023 10:37 AM EDT Narrative Resulting Agency Comment Spec In Lab Linda Shaikh DO CHEMISTRY ORDERABL ES Performing Organization Address [facility] Co de Phone Number [facility] [place] [address] * Sedimentation rate (05/31/2023 10:18 AM EDT) [facility] Sedimentation Rate Automated 4 3 - 46 mm/hr [facility] Comment: Effective November 05, 2019 new capillary photometric technology has resulted in a change in reference ranges. It is recommended that each ESR result be reviewed with its own age appropriate reference range. Blood 05/31/2023 10:1 8 AM EDT 05/31/2023 10:37 AM EDT Narrative Resulting Agency Comment Spec In Lab Linda Shaikh DO HEMATOLOGY ORDERAB LES Performing Organization Address [facility] de Phone Number [facility] [place] [address] * Lipid Panel (Reflex Direct LDL) (05/31/2023 10:18 AM EDT) Cholesterol, Total 239 mg/dL [facility] Comment: Lower Risk: <200 mg/dL Average Risk: 200-239 mg/dL Higher Risk: >mz=957 mg/dL Triglyceride 191 mg/dL [facility] Comment: Average Risk/Lower Risk: <150 mg/dL Borderline High Risk: 150-199 mg/dL High Risk: 200-499 mg/dL Very High Risk: >kw=958 mg/dL HDL Cholesterol 51 mg/dL [facility] Comment: Males: ?? Higher Risk: <40 mg/dL Females: ?? Higher Risk: <50 mg/dL LDL Cholesterol 150 mg/dL [facility] Comment: Lowest Risk: <100 mg/dL Lower Risk: 100-129 mg/dL Borderline High Risk: 130-159 mg/dL High Risk: 160-189 mg/dL Very High Risk: >fi=365 mg/dL Cholesterol/HDL Ratio 4.7 ratio [facility] Lipid Interpretation See Note [facility] Comment: Lipid management should be guided by a patient? s ASCVD risk, goals and preferences. ACC/AHA Guidelines recommend high intensity statin if clinical ASCVD or LDL greater than or equal to 190 mg/dL. [email or web address]-FAN-[email or web address] Adults aged 40-75 with LDL 70-189 mg/dL should have their 10 year ASCVD risk estimated with the ACC/AHA ASCVD risk zipper slide attacher http://tools.acc.org/THBCM-Kgpe-Oielkvlvv/ Statin should be discussed if risk greater [...] Lab Junior Bernard MD CHEMISTRY ORDERABLE S [facility] [place] [address] * Comprehensive metabolic panel (non-fasting) (05/31/2023 10:18 AM EDT) Glucose 115 65 - 199 mg/dL [facility] Comment:Diabetes: >=200 mg/d L plus symptoms Blood Urea Nitrogen 20 10 - 20 mg/dL [facility] Creatinine 1.15 0.80 - 1.50 mg/dL [facility] Sodium 139 135 - 145 mmol/L [facility] Potassium 4.6 3.5 - 5.0 mmol/L [facility] Comment: Please note: ??Patients with WBC >100,000 may have falsely elevated Potassium levels. ??For accurate Potassium quantification in these patients send serum separator tube (gold top) for subsequent determinations. ??Contact the Clinical Chemistry Laboratory if there are any questions. Chloride 103 98 - 107 mmol/L [facility] Carbon Dioxide 27 22 - 31 mmol/L [facility] Anion Gap 9 5 - 15 mmol/L [facility] Calcium 9.7 8.5 - 10.5 mg/dL [facility] Protein, Total 6.7 6.1 - 8.0 g/dL [facility] Albumin 4.4 3.2 - 5.2 g/dL [facility] Aspartate Aminotransferase 16 0 - 39 unit/L [facility] Alanine Aminotransferase 12 0 - 55 unit/L [facility] Alkaline Phosphatase 45 40 - 130 unit/L [facility] Bilirubin, Total 0.6 0.2 - 1.3 mg/dL [facility] Est Glomerular Filtration Rate 67 >=60 mL/min/1. 73 m?? [facility] Comment: This patient's estimated GFR [...] Lab Junior Bernard MD CHEMISTRY ORDERABLE S [facility] [place] [address] documented in this encounter Visit Diagnoses Diagnosis GCA (giant cell arteritis) Giant cell arteritis Immunosuppressed status Unspecified disorder of immune mechanism Medication monitoring encounter Encounter for therapeutic drug monitoring Hyperlipidemia, unspecified hyperlipidemia type documented in this encounter Care Teams Surgeon'S Assistant Relationship Specialty Start Date End Date Yesy Nagy APRN [address] [place] [address] PCP - General Geriatric Medicine 08/02/22 documented as of this encounter
--- OUTSIDE RECORDS SUMMARY | 2024-10-02 19:29 | XMS_ITS | Encounter Summary ---
Author Organization [facility] [place] [address] Care Team Providers Care Home Office Claims Examiner Name Role Phone Yesy Nagy APRN Primary Care Provider Encounter Details Date Type Department Care Team (Late st Contact Info) Description 01/30/2023 [place] [id number] Danica Taylor, [facility] Social [...] on filedocumented in this encounter Care Teams Home Office Claims Examiner Relationship Specialty Start Date End Date Yesy Nagy APRN [address] [place] [address] PCP - General Geriatric Medicine 08/02/22 documented as of this encounter
--- OUTSIDE RECORDS SUMMARY | 2024-10-02 19:29 | XMS_ITS | Encounter Summary ---
[place] [address] Care Team Providers Care Auto Garage Mechanic Name Role Phone Yesy Nagy MALACHI Primary Care Provider Encounter Details Date Type Department Care Team (Latest Contact Info) Description 01/23/2023 10:30 AM EST Laboratory Appointment Lab [address] [place] [address] barrel bander current use of systemic steroids; GCA (giant [...] HC VENIPUNCTURE Routine 01/23/2023 9:59 AM EST barrel bander current use of systemic steroids GCA (giant [...] RATE, BLOOD Routine 01/23/2023 9:59 AM EST retirement current use of systemic steroids GCA (giant cell arteritis) HEPATIC FUNCTION PANEL Routine 01/23/2023 9:59 AM EST documented in this encounter Results * Hepatic Function Panel (01/23/2023 9:59 AM EST) [facility] Protein, Total 6.8 6.1 - 8.0 g/dL [facility] Albumin 4.2 3.2 - 5.2 g/dL [facility] Aspartate Aminotransferase 18 0 - 39 unit/L [facility] Alanine Aminotransferase 14 0 - 55 unit/L [facility] Alkaline Phosphatase 64 40 - 130 unit/L [facility] Bilirubin, Total 0.3 0.2 - 1.3 mg/dL [facility] Bilirubin, Direct 0.1 0.0 - 0.3 mg/dL [facility] Blood Venous Draw / Unknown 01/23/2023 9:59 AM EST 01/23/2023 10:10 AM EST Narrative Resulting Agency Comment Spec In Lab Ananya Payan DO CHEMISTRY ORDERABLES [facility] [place] [address] * (ABNORMAL) Sedimentation rate (01/23/2023 9:59 AM EST) Sedimentation Rate Automated 51(H) 3 - 46 mm/hr [facility] Comment: Effective November 05, 2019 new capillary photometric technology has resulted in a change in reference ranges. It is recommended that each ESR result be reviewed with its own age appropriate reference range. Blood 01/23/2023 9:59 AM EST 01/23/2023 10:08 AM EST Narrative Resulting Agency Comment Spec In Lab Linda Shaikh DO HEMATOLOGY ORDERAB LES Performing Organization Address [facility] Co de Phone Number [facility] [place] [address] * HIV Screen, 4th Generation (MC/CGP/APD/NLH) (01/23/2023 9:59 AM EST) Pathologist [facility] HIV Ab/Ag Screen Negative Negative [facility] Comment: This 4th Generation [...] HIV Comment Low Risk of HIV Infection [facility] Blood 01/23/2023 9:59 AM EST 01/23/2023 10:08 AM EST Narrative Resulting Agency Comment Spec In Lab Linda Shaikh DO CHEMISTRY ORDERABL ES Performing Organization Address [facility] Co de Phone Number [facility] [place] [address] * Hepatitis C Antibody (01/23/2023 9:59 AM EST) Pathologist [facility] Hepatitis C Antibody Negative Negative [facility] Blood 01/23/2023 9:59 AM EST 01/23/2023 10:08 AM EST Narrative Resulting Agency Comment Spec In Lab Linda Shaikh DO CHEMISTRY ORDERABL ES Performing Organization Address [facility] Co de Phone Number [facility] [place] [address] * Hepatitis B Surface Antigen (01/23/2023 9:59 AM EST) Hepatitis B Surface Antigen Negative Negative [facility] Blood 01/23/2023 9:59 AM EST 01/23/2023 10:08 AM EST Narrative Resulting Agency Comment Spec In Lab Linda Shaikh DO CHEMISTRY ORDERABL ES Performing Organization Address [facility] Phone Number [facility] [place] [address] * Hepatitis B Surface Antibody (01/23/2023 9:59 AM EST) Hepatitis B Surface Antibody, Quantitative <3.5 IU/L [facility] Comment: HepB Surface Ab Quant: Unvaccinated: < 8.5 IU/L Vaccinated: >= 11.5 IU/L Hepatitis B Surface Antibody Negative [facility] Comment: Expected Results: Vaccinated: Positive Unvaccinated: Negative Patient is presumed to be not vaccinated or immune to HBV infection. Blood 01/23/2023 9:59 AM EST 01/23/2023 10:08 AM EST Narrative Resulting Agency Comment Spec In Lab Linda Shaikh DO CHEMISTRY ORDERABL ES Performing Organization Address [facility] Phone Number [facility] [place] [address] * Hepatitis B Core Antibody, Total (01/23/2023 9:59 AM EST) Hepatitis B Core Antibody Negative Negative [facility] Blood 01/23/2023 9:59 AM EST 01/23/2023 10:08 AM EST Narrative Resulting Agency Comment Spec In Lab Linda Shaikh DO CHEMISTRY ORDERABL ES Performing Organization Address [facility] Co de Phone Number [facility] [place] [address] * (ABNORMAL) CRP, acute inflammation (01/23/2023 9:59 AM EST) C-Reactive Protein 5.2(H) <=4.9 mg/L [facility] Blood 01/23/2023 9:59 AM EST 01/23/2023 10:08 AM EST Narrative Resulting Agency Comment Spec In Lab Linda Shaikh DO CHEMISTRY ORDERABL ES Performing Organization Address City/State/[facility] Co de Phone Number [facility] [place] [address] documented in this encounter Visit Diagnoses Diagnosis barrel bander current use of systemic steroids Encounter for long-term (current) use of steroids GCA (giant cell arteritis) Giant cell arteritis Immunosuppressed status Unspecified disorder of immune mechanism documented in this encounter Care Teams Auto Garage Mechanic Relationship Specialty Start Date End Date Yesy Nagy APRN [address] [place] [address] PCP - General Geriatric Medicine 08/02/22 documented as of this encounter
--- OUTSIDE RECORDS SUMMARY | 2024-10-02 19:29 | XMS_ITS | Encounter Summary ---
Author Organization [facility] [place] [address] Care Team Providers Care Senior Service Technician Name Role Phone Yesy Nagy APRN [...] filedocumented in this encounter Care Teams Senior Service Technician Relationship Specialty Start Date End Date Yesy Nagy APRN [address] [place] [address] PCP - General Geriatric Medicine 08/02/22 documented as of this encounter
--- OUTSIDE RECORDS SUMMARY | 2024-10-02 19:29 | XMS_ITS | Encounter Summary ---
Author Organization [facility] Address [facility] [place] [address] Care Team Providers Care Lug Breaker And Wire Puller Name Role Phone Yesy Nagy APRN Primary Care Provider [phone] Encounter Details Date Type Department Care Team (Latest Contact Info) Description 04/12/2023 1:00 PM EDT TH Visit (TeleHealth) [place] [phone] Ananya Payan, [facility] [place] [address] GCA (giant cell arteritis); Medication monitoring encounter [...] Dr. Keturah Payan DO Rheumatology Fellow Pager: [phone] * Stephen Payan MD - 04/12/2023 1:00 [...] Taylor, [facility] Note: Judson Nagel Jorge Funk [...] monitoring documented in this encounter Care Teams Lug Breaker And Wire Puller Relationship Specialty Start Date End Date Yesy Nagy APRN [address] [place] [address] PCP - General Geriatric Medicine 08/02/22 documented as of this encounter
--- OUTSIDE RECORDS SUMMARY | 2024-10-02 19:29 | XMS_ITS | Encounter Summary ---
[place] [address] Care Team Providers Care Automation Driver Name Role Phone Yesy Nagy APRN Primary Care Provider Encounter Details Date Type Department Care Team (Late st Contact Info) Description 12/15/2022 [place] [phone] Ananya Payan, [facility] [address] GCA (giant cell arteritis) Social History Tobacco [...] arteritis documented in this encounter Care Teams Automation Driver Relationship Specialty Start Date End Date Yesy Nagy APRN [address] [place] [address] PCP - General Geriatric Medicine 08/02/22 documented as of this encounter
--- OUTSIDE RECORDS SUMMARY | 2024-10-02 19:29 | XMS_ITS | Encounter Summary ---
Author Organization [facility] Address [facility] [place] [address] Care Team Providers Care Etl Lead Name Role Phone Yesy Nagy MALACHI Primary Care Provider [phone] Reason for Visit * Diagnostic Test (Routine) - Closed Specialty Diagnoses / Procedures Referred By Contac t Referred To Contact Radiology Diagnoses Gait instability Tremor Procedures NM Brain Imaging for Parkinsons Disease Srikanth Morris MD [facility] [place] [address] [place] [address] Referral ID Status Reason Start Date Expiration Date V isits Requested Visits Authorized [id number] Closed Specialty Service Requested 01/23/2023 07/23/2024 1 1 Encounter Details Date Type Department Care Team (Latest Contact Info) Description 02/23/2023 8:24 AM EDT - 02/23/2023 12:29 PM EDT Hospital Encounter [place] [address] Srikanth Morris MD [facility] [place] [address] Discharge Disposition: Home Social History [...] (FISH OIL ORAL) Take by mouth. Ascorbic Nxar-Udlmsjdrb-Gxc (Emergen-C) 1,000 mg Powder Effervescent in Packet [...] mg/0.9 mL Pen InjectorIndications: GCA (giant cell arteritis),FDC current use of systemic steroids Inject 0.9 [...] Arm documented in this encounter Care Teams Etl Lead Relationship Specialty Start Date End Date Yesy Nagy APRN [address] [place] [address] PCP - General Geriatric Medicine 08/02/22 documented as of this encounter
--- OUTSIDE RECORDS SUMMARY | 2024-10-02 19:29 | XMS_ITS | Encounter Summary ---
Author Organization [facility] Address [facility] [place] [address] Care Team Providers Care Bleach Boiler Packer Name Role Phone Yesy Nagy APRN Primary Care Provider [phone] Reason for Referral * Diagnostic Test (Routine) - Closed Specialty Diagnoses / Procedures Referred By Contac t Referred To Contact Radiology Diagnoses Gait instability Tremor Procedures MRI Brain wo Contrast Srikanth Morris MD [facility] [place] [address] [place] [address] Referral ID Status Reason Start Date Expiration Date V isits Requested Visits Authorized [id number] Closed Specialty Service Requested 01/23/2023 07/23/2024 1 1 Reason for Visit * Diagnostic Test (Routine) - Closed Specialty Diagnoses / Procedures Referred By Contac t Referred To Contact Radiology Diagnoses Gait instability Tremor Procedures MRI Brain wo Contrast Srikanth Morris MD [facility] [place] [address] [place] [address] Referral ID Status Reason Start Date Expiration Date V isits Requested Visits Authorized [id number] Closed Specialty Service Requested 01/23/2023 07/23/2024 1 1 Encounter Details Date Type Department Care Team (Latest Contact Info) Description 02/23/2023 12:30 PM EDT - 02/23/2023 1:41 PM EDT Hospital [place] [address] Srikanth Morris MD [facility] [place] [address] [place] [address] Gait instability; Tremor Discharge Disposition: Home Social [...] (FISH OIL ORAL) Take by mouth. Ascorbic Ulwl-Rellssfdz-Jvx (Emergen-C) 1,000 mg Powder Effervescent in Packet [...] mg/0.9 mL Pen InjectorIndications: GCA (giant cell arteritis),nursing home current use of systemic steroids Inject 0.9 [...] [facility] Note: Judson Nagel Jorge Funk [...] who have questions please contact the health occasional caregiver that requested your imaging first. ? Narrative 02/23/2023 5:06 PM EDT EXAMINATION: MRI [...] patients who have questions please contactthe health occasional caregiver that requested your imaging first. Electronically signed by: Jack Srinivasan MDBaptist [facility]([phone]), at 02/23/2023 5:06 PM Srikanth Morris MD IMG MRI ORDERABLES documented in this encounter Visit Diagnoses Diagnosis Gait instability Abnormality of gait Tremor Abnormal involuntary movements documented in this encounter Care Teams Bleach Boiler Packer Relationship Specialty Start Date End Date Yesy Nagy APRN [address] [place] [address] PCP - General Geriatric Medicine 08/02/22 documented as of this encounter
--- OUTSIDE RECORDS SUMMARY | 2024-10-02 19:29 | XMS_ITS | Encounter Summary ---
Author Organization [facility] Address [facility] [place] [address] Care Team Providers Care Blue Print Control Clerk Name Role Phone Yesy Nagy MALACHI Primary Care Provider [phone] Reason for Visit * Diagnostic Test (Routine) - Closed Specialty Diagnoses / Procedures Referred By Contac t Referred To Contact Radiology Diagnoses Gait instability Tremor Procedures NM Brain Imaging for Parkinsons Disease Srikanth Morris MD [facility] [place] [address] [place] [address] Referral ID Status Reason Start Date Expiration Date V isits Requested Visits Authorized [id number] Closed Specialty Service Requested 01/23/2023 07/23/2024 1 1 Encounter Details Date Type Department Care Team (Latest Contact Info) Description 02/23/2023 1:42 PM EDT - 02/23/2023 11:59 PM EDT Hospital En[place] [address] Srikanth Mroris MD [facility] [place] [address] Discharge Disposition: Home Social History [...] (FISH OIL ORAL) Take by mouth. Ascorbic Ucoq-Dfgwrehsa-Ywk (Emergen-C) 1,000 mg Powder Effervescent in Packet [...] mg/0.9 mL Pen InjectorIndications: GCA (giant cell arteritis),long-term current use of systemic steroids Inject 0.9 [...] Danica Taylor, [facility] Note: Judson Patel Jr. Is [...] who have questions please contact the health direct care counselor that requested your imaging first. ? Electronically signed by: Seth Guillen MD, [facility] ([phone]), at 02/23/2023 4:35 PM Narrative 02/23/2023 4:35 [...] patients who have questions please contactthe health direct care counselor that requested your imaging first. Electronically signed by: Seth Guillen MD, [facility]([phone]), at 02/23/2023 4:35 PM Srikanth Morris MD [facility] ORDERABLES documented in this encounter Visit Diagnoses Not on filedocumented in this encounter Care Teams Blue Print Control Clerk Relationship Specialty Start Date End Date Yesy Nagy APRN [address] [facility] [address] PCP - General Geriatric Medicine 08/02/22 documented as of this encounter
--- OUTSIDE RECORDS SUMMARY | 2024-10-02 19:29 | XMS_ITS | Encounter Summary ---
Author Organization [facility] Address [facility] [place] [address] Care Team Providers Care Pumping Supervisor Name Role Phone Yesy Nagy APRN Primary Care Provider Encounter Details Date Type Department Care Team (Late st Contact Info) Description 01/23/2023 [place] [phone] Ananya Payan DO [facility] [place] [address] Social History Tobacco Use Types Packs/Day Years [...] of infection. We discussed side effects of intermodal customer service prednisone: osteoporosis, HTN, DM, cataracts and how [...] GCA (giant cell arteritis) Giant cell arteritis skilled nursing current use of systemic steroids Encounter for long-term (current) use of steroids documented in this encounter Care Teams Pumping Supervisor Relationship Specialty Start Date End Date Yesy Nagy APRN [address] [place] [address] PCP - General Geriatric Medicine 08/02/22 documented as of this encounter
--- OUTSIDE RECORDS SUMMARY | 2024-10-02 19:29 | XMS_ITS | Encounter Summary ---
Author Organization [facility] Address [facility] [place] [address] Care Team Providers Care Medical Surgery Nurse Name Role Phone Yesy Nagy APRN Primary Care Provider [phone] Reason for Visit * Reason Comments Specialty Refill Management Encounter Details Date Type Department Care Team (Late st Contact Info) Description 04/17/2023 Specialty [place] [phone] Winifred Crisostomo RPH Social History Tobacco Use [...] Known Allergies Medication Reconciliation Discrepancies (compared to [facility] med list) No Specialty Pharmacy Refill Questionnaire [...] Action Plan No Danica Taylor [facility] Note: Judson Robe Patel Jr. Is hoping to decrease his prednisone dosage and keep pain levels at a minimum. He is hoping that Actemra will be able to keep him walking since before prednisone he had a hard time standing up and walking around. documented as of this encounter Visit Diagnoses Not on filedocumented in this encounter Care Teams Medical Surgery Nurse Relationship Specialty Start Date End Date Yesy Nagy APRN [address] [place] [address] PCP - General Geriatric Medicine 08/02/22 documented as of this encounter
--- OUTSIDE RECORDS SUMMARY | 2024-10-02 19:29 | XMS_ITS | Encounter Summary ---
Author Organization [facility] [place] [address] Care Team Providers Care Steel Loader Name Role Phone Yesy Nagy TOOLS AND PARTS ATTENDANT Primary Care Provider Encounter Details Date Type Department Care Team (Late st Contact Info) Description 01/29/2023 Telephone [place] [address] Landy Monson RN Social History [...] on filedocumented in this encounter Care Teams Steel Loader Relationship Specialty Start Date End Date Yesy Nagy APRN [address] [place] [address] PCP - General Geriatric Medicine 08/02/22 documented as of this encounter
--- OUTSIDE RECORDS SUMMARY | 2024-10-02 19:29 | XMS_ITS | Encounter Summary ---
Author Organization [facility] [place] [address] Care Team Providers Care Controls Design Engineer Name Role Phone Yesy Nagy APRN [...] on filedocumented in this encounter Care Teams Controls Design Engineer Relationship Specialty Start Date End Date Yesy Nagy APRN [address] [place] [address] PCP - General Geriatric Medicine 08/02/22 documented as of this encounter
--- OUTSIDE RECORDS SUMMARY | 2024-10-02 19:29 | XMS_ITS | Encounter Summary ---
Author Organization [place] [address] Care Team Providers Care Perianesthesia Manager Name Role Phone Yesy Nagy MALACHI Primary Care Provider [phone] Reason for Visit * Reason Comments Specialty Pharmacy Review Tocilizumab (A ctemra) Actpen 162mg/0.9mL Encounter Details Date Type Department Care Team (Late st Contact Info) Description 01/24/2023 Specialty Pharmacy Pharmacy at [facility] [place] [address] Yuliya Booker, [facility] Social History Tobacco Use Types Packs/Day [...] RPH - 01/24/2023 11:02 AM EST The [facility] has completed a benefits investigation for Judson Patel Jr. to review their eligibility to fill at [facility]. Per patient's medication list they are prescribed Actemra and the medication is able to be filled at the [facility]. Judson Patel Jr. elects [...] on filedocumented in this encounter Care Teams Perianesthesia Manager Relationship Specialty Start Date End Date Yesy Nagy APRN [address] [place] [address] PCP - General Geriatric Medicine 08/02/22 documented as of this encounter
--- OUTSIDE RECORDS SUMMARY | 2024-10-02 19:29 | XMS_ITS | Encounter Summary ---
Author Organization [facility] [place] [address] Care Team Providers Care Treatment Counselor Name Role Phone Yesy Nagy APRN Primary Care Provider Encounter Details Date Type Department Care Team (Latest Contact Info) Description 02/26/2023 4:00 PM EDT TH Visit (TeleHealth) [place] [phone] Ananya Payan, [facility] [place] [address] GCA (giant cell arteritis); Immunosuppressed status; Medication [...] profile, ESR, CRP- will send to [facility] -Continue Actemra weekly -Continue [...] Dr. Joana Payan DO Rheumatology Fellow Pager: [phone] * Junior Bernard MD - 02/26/2023 4:00 PM EDT The patient's history was reviewed with Dr. Payan. History of present illness and diagnosis discussed. Chief complaint and review of systems reviewed. I agree with the summary, findings, diagnostic and therapeutic plans. Junior Bernard [place], [address] documented in this encounter Plan of Treatment [...] (Reflex Direct LDL) (05/31/2023 10:18 AM EDT) [facility] Signature Cholesterol, Total 239 mg/dL [facility] Comment: Lower Risk: <200 mg/dL Average Risk: 200-239 mg/dL Higher Risk: >ft=328 mg/dL Triglyceride 191 mg/dL [facility] Comment: Average Risk/Lower Risk: <150 mg/dL Borderline High Risk: 150-199 mg/dL High Risk: 200-499 mg/dL Very High Risk: >hl=585 mg/dL HDL Cholesterol 51 mg/dL [facility] Comment: Males: ?? Higher Risk: <40 mg/dL Females: ?? Higher Risk: <50 mg/dL LDL Cholesterol 150 mg/dL [facility] Comment: Lowest Risk: <100 mg/dL Lower Risk: 100-129 mg/dL Borderline High Risk: 130-159 mg/dL High Risk: 160-189 mg/dL Very High Risk: >jt=551 mg/dL Cholesterol/HDL Ratio 4.7 ratio [facility] Lipid Interpretation See Note [facility] Comment: Lipid management should be guided by a patient? s ASCVD risk, goals and preferences. ACC/AHA Guidelines recommend high intensity statin if clinical ASCVD or LDL greater than or equal to 190 mg/dL. http://tinyurl.com/SWY-MDY-Wjxfnpbsy Adults aged 40-75 with LDL 70-189 mg/dL should have their 10 year ASCVD risk estimated with the ACC/AHA ASCVD risk window shade estimator http://tools.acc.org/NSYFM-Vccn-Iksilbesu/ Statin should be discussed if risk greater [...] MD CHEMISTRY ORDERABLE S Performing Organization Address City/State/[facility] [place] [address] documented in this encounter Visit Diagnoses Diagnosis GCA (giant cell arteritis) Giant cell arteritis Immunosuppressed status Unspecified disorder of immune mechanism Medication monitoring encounter Encounter for therapeutic drug monitoring Hyperlipidemia, unspecified hyperlipidemia type documented in this encounter Care Teams Treatment Counselor Relationship Specialty Start Date End Date Yesy Nagy APRN [address] [place] [address] PCP - General Geriatric Medicine 08/02/22 documented as of this encounter
--- OUTSIDE RECORDS SUMMARY | 2024-10-02 19:29 | XMS_ITS | Encounter Summary ---
Author Organization [facility] Address [facility] [place] [address] Care Team Providers Care Hogshead Liner Name Role Phone Yesy Nagy APRN Primary Care Provider [phone] Encounter Details Date Type Department Care Team (Late st Contact Info) Description 05/08/2023 Telephone [place] [phone] Ananya Payan DO [facility] [place] [address] Social History Tobacco Use Types Packs/Day Years [...] Taylor, [facility] Note: Judson Patel Jr. Is hoping to decrease his prednisone dosage and keep pain levels at a minimum. He is hoping that Actemra will be able to keep him walking since before prednisone he had a hard time standing up and walking around. documented as of this encounter Visit Diagnoses Not on filedocumented in this encounter Care Teams Hogshead Liner Relationship Specialty Start Date End Date Yesy Nagy APRN [address] [place] [address] PCP - General Geriatric Medicine 08/02/22 documented as of this encounter
--- OUTSIDE RECORDS SUMMARY | 2024-10-02 19:29 | XMS_ITS | Encounter Summary ---
Author Organization [facility] Address [facility] [place] [address] Care Team Providers Care Hand Frame Surgical Elastic Knitter Name Role Phone Yesy Nagy APRN Primary Care Provider [phone] Reason for Visit * Reason Onset Date Comments Results 02/26/2023 Encounter Details Date Type Department Care Team (Late st Contact Info) Description 02/26/2023 Telephone Neurology at [facility] [place] [phone] Srikanth Morris [place] [address] Results Social History Tobacco Use Types Packs/Day [...] Danica Taylor, [facility] Note: Judson Patel Jr. Is hoping to decrease his prednisone dosage and keep pain levels at a minimum. He is hoping that Actemra will be able to keep him walking since before prednisone he had a hard time standing up and walking around. documented as of this encounter Visit Diagnoses Not on filedocumented in this encounter Care Teams Hand Frame Surgical Elastic Knitter Relationship Specialty Start Date End Date Yesy Nagy APRN [address] [place] [address] PCP - General Geriatric Medicine 08/02/22 documented as of this encounter
--- OUTSIDE RECORDS SUMMARY | 2024-10-02 19:29 | XMS_ITS | Encounter Summary ---
Author Organization [facility] Address [facility] [place] [address] Care Team Providers Care Shuttle Car Operator Name Role Phone Yesy Nagy APRN Primary Care Provider [phone] Reason for Visit * Reason Comments Specialty Pharmacy Review Tocilizumab (A ctemra) Actpen 162mg/0.9mL Encounter Details Date Type Department Care Team (Late st Contact Info) Description 04/12/2023 Specialty Pharmacy Pharmacy at [facility] [place] [address] Yuliya Booker, [facility] Social History Tobacco Use Types Packs/Day [...] Booker - 04/12/2023 11:59 PM EDT The [facility] has completed a benefits investigation for Judson Patel Jr. to review their eligibility to fill at [facility]. Per patient's medication list they are prescribed Actemra and the medication is currently filled at the [facility]. documented in this encounter [...] on filedocumented in this encounter Care Teams Shuttle Car Operator Relationship Specialty Start Date End Date Yesy Nagy APRN [address] [place] [address] PCP - General Geriatric Medicine 08/02/22 documented as of this encounter
--- OUTSIDE RECORDS SUMMARY | 2024-10-02 19:29 | XMS_ITS | Encounter Summary ---
Author Organization [facility] Address [facility] [place] [address] Care Team Providers Care Jar Filler Name Role Phone Yesy Nagy APRN Primary Care Provider [phone] Reason for Visit * Reason Comments Specialty Pharmacy Review Tocilizumab (A ctemra) Actpen 162mg/0.9mL Encounter Details Date Type Department Care Team (Late st Contact Info) Description 05/31/2023 Specialty [place] [address] Yuliya Booker, [facility] Social History Tobacco Use Types [...] Booker - 05/31/2023 11:59 PM EDT The [facility] has completed a benefits investigation for Judson Patel Jr. to review their eligibility to fill at [facility]. Per patient's medication list they are prescribed Actemra and the medication is able to be filled at the [facility] but is not currently [...] on filedocumented in this encounter Care Teams Jar Filler Relationship Specialty Start Date End Date Yesy Nagy APRN [address] [place] [address] PCP - General Geriatric Medicine 08/02/22 documented as of this encounter
--- OUTSIDE RECORDS SUMMARY | 2024-10-02 19:29 | XMS_ITS | Encounter Summary ---
Author Organization [facility] [place] [address] Care Team Providers Care Photographer Lithographic Name Role Phone Yesy Nagy PROVIDER ENGAGEMENT EXECUTIVE Primary Care Provider Encounter Details Date Type Department Care Team (Late st Contact Info) Description 12/26/2022 [place] [address] Ananya Payan DO [facility] [place] [address] Social History Tobacco Use Types Packs/Day Years [...] Danica Taylor, [facility] Note: Judson Ptael Jr. Is hoping to decrease his prednisone dosage and keep pain levels at a minimum. He is hoping that Actemra will be able to keep him walking since before prednisone he had a hard time standing up and walking around. documented as of this encounter Visit Diagnoses Not on filedocumented in this encounter Care Teams Photographer Lithographic Relationship Specialty Start Date End Date Yesy Nagy APRN [address] [place] [address] PCP - General Geriatric Medicine 08/02/22 documented as of this encounter
--- OUTSIDE RECORDS SUMMARY | 2024-10-02 19:29 | XMS_ITS | Encounter Summary ---
Author Organization [facility] Address [facility] [place] [address] Care Team Providers Care Biostatistics Teacher Name Role Phone Yesy Nagy APRN Primary Care Provider [phone] Reason for Referral * Diagnostic Test (Routine) - Closed Specialty Diagnoses / Procedures Referred By Contac t Referred To Contact Radiology Diagnoses Gait instability Tremor Procedures MRI Brain wo Contrast Greg Vivar MD [facility] [place] [address] [facility] [place] [address] Referral ID Status Reason Start Date Expiration Date V isits Requested Visits Authorized [id number] Closed Specialty Service Requested 01/23/2023 07/23/2024 1 1 * Physical Therapy (Routine) - Closed Specialty Diagnoses / Procedures Referred By Socrates pleitez Referred To Contact Diagnoses Gait instability Greg Viv[facility] [address] Referral ID Status Reason Start Date Expiration Date V isits Requested Visits Authorized [id number] Closed Evaluate and Treat 01/23/2023 07/22/2023 12 12 * Diagnostic Test (Routine) - Closed Specialty Diagnoses / Procedures Referred By Contac t Referred To Contact Radiology Diagnoses Gait instability Tremor Procedures NM Brain Imaging for Parkinsons Disease Greg Vivar MD [facility] [place] [address] [facility] [place] [address] Referral ID Status Reason Start Date Expiration Date V isits Requested Visits Authorized [id number] Closed Specialty Service Requested 01/23/2023 07/23/2024 1 1 Encounter Details Date Type Department Care Team (Late st Contact Info) Description 01/23/2023 9:30 AM EST Office Visit Neurology at [place] [phone] Greg Vivar MD [facility] [place] [address] Gait instability; Tremor Social History Tobacco Use [...] - 01/23/2023 9:30 AM [place] [address] 01/23/2023 Patient name: Judson Patel Jr. Date of : 1950 Referring provider: Ananya Payan, [facility] [place] [address] HISTORY REASON FOR REFERRAL/CHIEF COMPLAINT: Gait instability [...] for PMR/ GCA and has been on assistant terminal manager steroids. Was seen in Neurology here [...] found. 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 He stopped drinking alcohol after [...] OIL ORAL) Take by mouth. ??? Ascorbic Jyst-Qfolmpswo-Hpg (Emergen-C) 1,000 mg Powder Effervescent in Packet [...] GENERAL THYROID: No results found for: TSH, X2FRYZH, FREET4, TT4, THYROIDAB, THGAB Folate Lab Results Component Value Date SFOLATE 18.4 06/09/2016 ESR Lab Results Component Value Date SEDRATE 60 (H) 08/08/2022 CRP Lab Results Component Value Date CRP 20.2 (H) 08/08/2022 B12 Lab Results Component Value Date [id number] 08/08/2022 CKNo results found for: CK [...] U -- REFERENCE VALUE -- <1.0 (Negative) PACKAGE SEALER Ab, IgG, S <0.2 U -- REFERENCE VALUE -- <1.0 (Negative) Scl 70 Ab, IgG, S 7.6 H U -- REFERENCE VALUE -- <1.0 (Negative) Interpretation: Positive (>=1.0) Megan 1 Ab, IgG, S <0.2 U -- REFERENCE VALUE -- <1.0 (Negative) Test Performed by: [place] [id number] Track Moving Machine Operator: Stephen Caldera II, M.D., Ph.D. C3,C4, COMPLEMENTSNo [...] LDLCHOL, LDLDIRECT NIKKI 65No results found for: MZI51ER ANTI GM1,ANTI SGPG, MAG@RESUFAST (MAGAUTOAB,SGPG,MAGWB,GM1AB)@ HEAVY METAL SCREENNo results found for: LEAD, ARSENIC METHYLMLONIC ACIDNo results found for: METHYLMAL IgA, IGG No results found for: IGA, IGG CSF PANEL Lab Results Component Value Date LYMEAB Neg 06/09/2016 PARANEOPLASTIC PANEL No results found for: PARANEOINTRP, ANNA1, ANNA2, ANNA3, AGNA1, PCA1, PCA2, PCATYPETR, AMPHIPHYSIN,UQJS0DBX, STRIATMSCLAB, CACHABPQTYPE, CACHABNTYPE, ACHRBINDAB, NEUROKCHAB, NMDARECEPTOR, [id number] THROMBOSIS HOMEOCYSTEINENo results found for: HOMOCYSTEINE THROMBOSIS PANELNo results found for: ACAIGM, Q1CVXWUHHCS FACTOR V LEIDEN No components found for: FACTORVLEIDEN PROTEIN C,SNo components found for: PROTEINC, PROTEINS ANTITHROMBIN IIINo components found for: ANTITHROMBINIII Miscellaneous Send outsNo results found for: KAROLINECSENDOUT MISCMAYO ASSESSMENT, PLAN & RECOMMENDATIONS ASSESSMENT: 72 Y M with a diagnosis of PMR/ GCA on assistant terminal manager steroids, HTN h/o alcoholism peripheral neuropathy [...] months. Greg Vivar MD Department of Neurology [facility] documented in this encounter Miscellaneous Notes [...] who have questions please contact the health wound care rn that requested your imaging first. ? Electronically signed by: Seth Guillen MD, [facility] ([phone]), at 02/23/2023 4:35 PM Narrative 02/23/2023 4:35 [...] patients who have questions please contactthe health wound care rn that requested your imaging first. Electronically signed by: Seth Guillen MD, [facility]([phone]), at 02/23/2023 4:35 PM Greg Vivar MD [facility] ORDERABLES * MRI Brain wo Contrast [...] who have questions please contact the health wound care rn that requested your imaging first. ? Narrative [...] patients who have questions please contactthe health wound care rn that requested your imaging first. Electronically signed by: Jack Srinivasan MD, [facility]([phone]), at 02/23/2023 5:06 PM Greg Vivar MD IM MRI ORDERABLES documented in this encounter Visit Diagnoses Diagnosis Gait instability Abnormality of gait Tremor Abnormal involuntary movements Gait instability Abnormality of gait Tremor Abnormal involuntary movements Gait instability Abnormality of gait Tremor Abnormal involuntary movements documented in this encounter Care Teams Biostatistics Teacher Relationship Specialty Start Date End Date Yesy Nagy APRN [address] [place] [address] PCP - General Geriatric Medicine 08/02/22 documented as of this encounter
--- OUTSIDE RECORDS SUMMARY | 2024-10-02 19:29 | XMS_ITS | Encounter Summary ---
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
--- OUTSIDE RECORDS SUMMARY | 2024-10-02 19:29 | XMS_ITS | Encounter Summary ---
Author Organization [facility] Address [facility] [place] [address] Care Team Providers Care Test Engine Mechanic Name Role Phone Yesy Nagy APRN Primary Care Provider Encounter Details Date Type Department Care Team (Late st Contact Info) Description 03/14/2023 Telephone [place] [address] Thony Dee MD [facility] [place] [address] Social History Tobacco Use Types Packs/Day Years [...] us. He will call the lab at [facility] to fax them. Thony Dee MD Rheumatology Fellow Pager: [phone] documented in this encounter Plan of Treatment [...] on filedocumented in this encounter Care Teams Test Engine Mechanic Relationship Specialty Start Date End Date Yesy Nagy APRN [address] [place] [address] PCP - General Geriatric Medicine 08/02/22 documented as of this encounter
--- OUTSIDE RECORDS SUMMARY | 2024-10-02 19:29 | XMS_ITS | Encounter Summary ---
Author Organization [facility] [place] [address] Care Team Providers Care Traffic Controller Cable Name Role Phone Yesy Nagy APRN Primary Care Provider [phone] Encounter Details Date Type Department Care Team [...] filedocumented in this encounter Care Teams Traffic Controller Cable Relationship Specialty Start Date End Date Yesy Nagy APR[place] [address] [place] [address] PCP - General Geriatric Medicine 08/02/22 documented as of this encounter
--- OUTSIDE RECORDS SUMMARY | 2024-10-02 19:29 | XMS_ITS | Encounter Summary ---
Author Organization [facility] Address [facility] [place] [address] Care Team Providers Care Immigration Specialist Name Role Phone Yesy Nagy APRN Primary Care Provider [phone] Reason for Visit * Reason Comments Medication Refill Encounter Details Date Type Department Care Team (Late st Contact Info) Description 12/15/2022 Refill [place] [phone] Ananya Payan, [facility] [place] [address] nursing home current use of systemic steroids; [...] Facing Action Plan No Danica Taylor, [facility] Note: Judson Robe Patel Jr. Is hoping to decrease his prednisone dosage and keep pain levels at a minimum. He is hoping that Actemra will be able to keep him walking since before prednisone he had a hard time standing up and walking around. documented as of this encounter Visit Diagnoses Diagnosis nursing home current use of systemic steroids Encounter for long-term (current) use of steroids GCA (giant cell arteritis) Giant cell arteritis documented in this encounter Care Teams Immigration Specialist Relationship Specialty Start Date End Date Yesy Nagy APRN [address] [place] [address] PCP - General Geriatric Medicine 08/02/22 documented as of this encounter
--- OUTSIDE RECORDS SUMMARY | 2024-10-02 19:29 | XMS_ITS | Encounter Summary ---
Author Organization [facility] Address [facility] [place] [address] Care Team Providers Care Banking Paralegal Name Role Phone Yesy Nagy APRN Primary Care Provider Encounter Details Date Type Department Care Team (Late st Contact Info) Description 01/15/2023 [place] [address] Dayna Paez, RN Social History [...] that I will have labs sent to [facility] to check his inflammatory marker and advisehim [...] [facility] Note: Judson Patel Jr. Is hoping to decrease his prednisone dosage and keep pain levels at a minimum. He is hoping that Actemra will be able to keep him walking since before prednisone he had a hard time standing up and walking around. documented as of this encounter Visit Diagnoses Not on filedocumented in this encounter Care Teams Banking Paralegal Relationship Specialty Start Date End Date Yesy Nagy APRN [address] [place], [place] [address] [place] [address] PCP - General Geriatric Medicine 08/02/22 documented as of this encounter
--- OUTSIDE RECORDS SUMMARY | 2024-10-02 19:29 | XMS_ITS | Encounter Summary ---
[place] [address] Care Team Providers Care Hog Cutter Name Role Phone Yesy Nagy APRN Primary Care Provider [phone] Encounter Details Date Type Department Care Team (Late st Contact Info) Description 12/15/2022 Telephone [place] [address] Flaquita Ricks, RN Social History [...] on filedocumented in this encounter Care Teams Hog Cutter Relationship Specialty Start Date End Date Yesy Nagy APRN [address] [place] [address] PCP - General Geriatric Medicine 08/02/22 documented as of this encounter
--- OUTSIDE RECORDS SUMMARY | 2024-10-02 19:29 | XMS_ITS | Encounter Summary ---
Author Organization [facility] Address [facility] [place] [address] Care Team Providers Care Technical Solutions Consultant Name Role Phone Yesy Nagy APRN Primary Care Provider [phone] Reason for Visit * Reason Comments Specialty Pharmacy Review Tocilizumab (A ctemra) Actpen 162mg/0.9mL Encounter Details Date Type Department Care Team (Late st Contact Info) Description 04/25/2023 Specialty Pharmacy Pharmacy at [facility] [place] [address] Yuliya Booker, [facility] [...] Booker - 04/25/2023 7:52 AM EDT The [facility] has completed a benefits investigation for Judson Patel Jr. to review their eligibility to fill at [facility]. Per patient's medication list they are prescribed Actemra and the medication is currently filled at the [facility]. documented in this encounter [...] filedocumented in this encounter Care Teams Technical Solutions Consultant Relationship Specialty Start Date End Date Yesy Nagy APRN [address] [place] [address] PCP - General Geriatric Medicine 08/02/22 documented as of this encounter
--- OUTSIDE RECORDS SUMMARY | 2024-10-02 19:29 | XMS_ITS | Encounter Summary ---
Author Organization [facility] Address [facility] [place] [address] Care Team Providers Care Noodle Press Operator Name Role Phone Yesy Nagy MALACHI Primary Care Provider Encounter Details Date Type Department Care Team (Late st Contact Info) Description 12/18/2022 Telephone [place] [address] Emma Zuñiga LPN Social History [...] LPN - 12/18/2022 3:53 PM EST This group underwriter called and spoke with pharmacy in reference [...] on filedocumented in this encounter Care Teams Noodle Press Operator Relationship Specialty Start Date End Date Yesy Nagy APRN [address] [place] [address] PCP - General Geriatric Medicine 08/02/22 documented as of this encounter
--- OUTSIDE RECORDS SUMMARY | 2024-10-02 19:29 | XMS_ITS | Encounter Summary ---
Author Organization [facility] Address [facility] [place] [address] Care Team Providers Care Manager Utility Name Role Phone Yesy Nagy MALACHI Primary Care Provider Encounter Details Date Type Department Care Team (Late st Contact Info) Description 05/16/2023 Telephone [place] [phone] Ananya Payan DO [facility] [place] [address] Social History Tobacco Use Types Packs/Day Years [...] [facility] Note: Judson Patel Jr. Is hoping to decrease his prednisone dosage and keep pain levels at a minimum. He is hoping that Actemra will be able to keep him walking since before prednisone he had a hard time standing up and walking around. documented as of this encounter Visit Diagnoses Not on filedocumented in this encounter Care Teams Manager Utility Relationship Specialty Start Date End Date Yesy Nagy APRN [address] [place] [address] PCP - General Geriatric Medicine 08/02/22 documented as of this encounter
--- OUTSIDE RECORDS SUMMARY | 2024-10-02 19:29 | XMS_ITS | Encounter Summary ---
Author Organization [facility] Address [facility]jo [facility] [place] [address] Care Team Providers Care Human Resource Advisor Name Role Phone Yesy Nagy APRN Primary Care Provider [phone] Reason for Visit * Reason Comments Specialty Pharmacy Review Tocilizumab (A ctemra) 162 mg/0.9 mL Pen Injector Encounter Details Date Type Department Care Team (Late st Contact Info) Description 02/26/2023 Specialty [place] [address] Yuliya Booker, [facility] Social History Tobacco Use Types Packs/Day [...] Booker - 02/26/2023 11:59 PM EDT The [facility] has completed a benefits investigation for Judson Patel Jr. to review their eligibility to fill at [facility]. Per patient's medication list they are prescribed Tocilizumab (Actemra) and the medication is currently filled at the [facility]. documented in this encounter [...] on filedocumented in this encounter Care Teams Human Resource Advisor Relationship Specialty Start Date End Date Yesy Nagy APRN [address] [place] [address] PCP - General Geriatric Medicine 08/02/22 documented as of this encounter
--- OUTSIDE RECORDS SUMMARY | 2024-10-02 19:29 | XMS_ITS | Encounter Summary ---
Author Organization [facility] Address [facility] [place] [address] Care Team Providers Care Naval Aircrewman Name Role Phone Yesy Nagy APRN Primary Care Provider Encounter Details Date Type Department Care Team (Late st Contact Info) Description 01/31/2023 [place] [address] Danica Taylor [facility] Social [...] explained that prednisone has a lot of care home effects such as developing type 2 diabetes, osteoporosis, GI effects, ocular effects, cushingoid features, cardiovascular effects, etc that Actemra does not have. Prednisone isn't a care home solution and Actemra works really well in [...] Taylor, [facility] Note: Judson Robe Patel Jr. Is hoping to decrease his prednisone dosage and keep pain levels at a minimum. He is hoping that Actemra will be able to keep him walking since before prednisone he had a hard time standing up and walking around. documented as of this encounter Visit Diagnoses Not on filedocumented in this encounter Care Teams Naval Aircrewman Relationship Specialty Start Date End Date Yesy Nagy APRN [address] [place] [address] PCP - General Geriatric Medicine 08/02/22 documented as of this encounter
--- OUTSIDE RECORDS SUMMARY | 2024-10-02 19:29 | XMS_ITS | Encounter Summary ---
Author Organization [facility] Address [facility] [place] [address] Care Team Providers Care Piston Maker Name Role Phone Yesy Nagy APRN Primary Care Provider [phone] Encounter Details Date Type Department Care Team (Late st Contact Info) Description 03/14/2023 Telephone [place] [address] Landy Monosn RN Social History Tobacco Use Types Packs/Day [...] Taylor, [facility] Note: Judson Nagel Jorge Funk Is hoping to decrease his prednisone dosage and keep pain levels at a minimum. He is hoping that Actemra will be able to keep him walking since before prednisone he had a hard time standing up and walking around. documented as of this encounter Visit Diagnoses Not on filedocumented in this encounter Care Teams Piston Maker Relationship Specialty Start Date End Date Yesy Nagy APRN [address] [place] [address] PCP - General Geriatric Medicine 08/02/22 documented as of this encounter
--- OUTSIDE RECORDS SUMMARY | 2024-10-02 19:29 | XMS_ITS | Encounter Summary ---
Author Organization [facility] Address [facility] [place] [address] Care Team Providers Care Crocodile Farmer Name Role Phone Yesy Nagy APRN Primary Care Provider [phone] Encounter Details Date Type Department Care Team (Late st Contact Info) Description 05/31/2023 9:30 AM EDT Office [place] [phone] Ananya Payan, [facility] [place] [address] GCA (giant cell arteritis); Medication monitoring encounter; [...] Dr. Neel Payan DO Rheumatology Fellow Pager: [phone] documented in this encounter Plan of Treatment Not on file documented as of this encounter Goals Goal Patient Goal Type Associated Problems Recent Progress Patient-Stated? Author DH Self-Management Patient Facing Action Plan No Danica Taylor, [facility] Note: Judson Patel JrRandy Is hoping [...] Rate Automated 4 3 - 46 mm/hr [facility] Comment: Effective November 05, 2019 new capillary photometric technology has resulted in a change in reference ranges. It is recommended that each ESR result be reviewed with its own age appropriate reference range. Blood 05/31/2023 10:1 8 AM EDT 05/31/2023 10:37 AM EDT Narrative Resulting Agency Comment Spec In Lab Linda Shaikh DO HEMATOLOGY ORDERAB LES [facility] [place] [address] * CRP, acute inflammation (05/31/2023 10:18 AM EDT) C-Reactive Protein <3.0 <=4.9 mg/L [facility] Blood 05/31/2023 10:1 8 AM EDT 05/31/2023 10:37 AM EDT Narrative Resulting Agency Comment Spec In Lab Linda Shaikh DO CHEMISTRY ORDERABL ES [facility] [place] [address] documented in this encounter Visit Diagnoses Diagnosis GCA (giant cell arteritis) Giant cell arteritis Medication monitoring encounter Encounter for therapeutic drug monitoring PMR (polymyalgia rheumatica) Polymyalgia rheumatica senior living current use of systemic steroids Encounter for long-term (current) use of steroids documented in this encounter Care Teams Crocodile Farmer Relationship Specialty Start Date End Date Yesy Nagy APRN [address] [place] [address] PCP - General Geriatric Medicine 08/02/22 documented as of this encounter
--- OUTSIDE RECORDS SUMMARY | 2024-10-02 19:29 | XMS_ITS | Encounter Summary ---
Author Organization [facility] [place] [address] Care Team Providers Care Insurance Marketing Rep Name Role Phone MikeYesy Swenson MALACHI Primary Care Provider [phone] Reason for Visit * Reason Onset Date Comments Other 05/10/2023 Encounter Details Date Type Department Care Team (Late st Contact Info) Description 05/10/2023 [place] [phone] Dayna Paez RN Other Social History Tobacco [...] on filedocumented in this encounter Care Teams Insurance Marketing Rep Relationship Specialty Start Date End Date Yesy Nagy APRN [address] [place] [address] PCP - General Geriatric Medicine 08/02/22 documented as of this encounter
--- OUTSIDE RECORDS SUMMARY | 2024-10-02 19:29 | XMS_ITS | Encounter Summary ---
Author Organization [facility] Address [facility] [place] [address] Care Team Providers Care Compressed Gases Tester Name Role Phone Yesy Nagy APRN Primary Care Provider Encounter Details Date Type Department Care Team (Late st Contact Info) Description 01/22/2023 [place] [phone] Ananya Payan DO [facility] [place] [address] Social History Tobacco Use Types Packs/Day Years [...] 8mg prednisone daily - has appointment with [facility] neurology tomorrow. - Will recheck CRP ESR [...] Plan No Danica Taylor, [facility] Note: Judson Nagel Jorge Cisse. Is hoping to decrease his prednisone dosage and keep pain levels at a minimum. He is hoping that Actemra will be able to keep him walking since before prednisone he had a hard time standing up and walking around. documented as of this encounter Visit Diagnoses Not on filedocumented in this encounter Care Teams Compressed Gases Tester Relationship Specialty Start Date End Date Yesy Nagy APRN [address] [place] [address] PCP - General Geriatric Medicine 08/02/22 documented as of this encounter
--- OUTSIDE RECORDS SUMMARY | 2024-10-02 19:29 | XMS_ITS | Encounter Summary ---
Author Organization [facility] Address [facility] [place] [address] Care Team Providers Care Dredge Pipe Operator Name Role Phone Yesy Nagy APRN Primary Care Provider [phone] Reason for Visit * Reason Comments Specialty Refill Management Medication Management Encounter Details Date Type Department Care Team (Late st Contact Info) Description 03/20/2023 Specialty [place] [address] Rayne Vigil, SPLUNK DEVELOPER Social History Tobacco Use Types Packs/Day Years [...] Plan: Refill Specialty Pharmacy Consultation; Anil Medeiros [facility] Comprehensive Medication Management (CMM) Judson [...] beneficiary Provider: plan sponsor [facility] Follow-up Time Spent: 1-15 min Method of Contact: by telephone Cognitive Ability: good Allergies and Drug intolerance: No Known Allergies Medication Reconciliation Discrepancies (compared to [facility] med list) -none Specialty Pharmacy Refill Questionnaire 03/20/2023 Refill Questionnaire What is the name of the specialty medication you are refilling? Actemra Are you taking any new medications? No Any new medical condition? Yes Please explain problem with iban pt transferred to [facility] Anil Any new allergies? No Any missed [...] and that [facility] is providing recommendations (summary located at top of note) for provider review and follow up. Anil Medeiros [facility] 03/20/23 10:47 AM documented in this encounter Plan of Treatment Not on file documented as of this encounter Goals Goal Patient Goal Type Associated Problems Recent Progress Patient-Stated? Author DH Self-Management Patient Facing Action Plan No Danica Taylor, [facility] Note: Judson Patel Jr. Is hoping to decrease his prednisone dosage and keep pain levels at a minimum. He is hoping that Actemra will be able to keep him walking since before prednisone he had a hard time standing up and walking around. documented as of this encounter Visit Diagnoses Not on filedocumented in this encounter Care Teams Dredge Pipe Operator Relationship Specialty Start Date End Date Yesy Nagy APRN [address] [place] [address] PCP - General Geriatric Medicine 08/02/22 documented as of this encounter
--- OUTSIDE RECORDS SUMMARY | 2024-10-02 19:29 | XMS_ITS | Encounter Summary ---
Author Organization [facility] [place] [address] Care Team Providers Care Construction Or Leak Gang Laborer Name Role Phone Yesy Nagy MALACHI Primary Care Provider [phone] Reason for Visit * Reason Comments Medication Management Patient Education Encounter Details Date Type Department Care Team (Late st Contact Info) Description 01/30/2023 Specialty [place] [phone] Danica Taylor [facility] Social History Tobacco Use Types [...] Requirements: no Medication Reconciliation Discrepancies (compared to [facility] med list) -none Medication List: Current [...] OIL ORAL) Take by mouth. ??? Ascorbic Zsne-Namdpsnsl-Xlj (Emergen-C) 1,000 mg Powder Effervescent in Packet [...] specialty services: Yes Patient accepted offer to intellectual property counsel: select all, adherence/missed doses, cost of [...] to doctor discussed, reminder to refill or pick up worker medication discussed, self-monitoring discussed, start medication discussed, [...] Social Assessment: Does patient have a primary child care director: No Does patient have an emergency contact on file: Yes Does patient need referral to addiction social worker: No Does patient need referral [...] symptoms of infection, signs and symptoms of SOCIAL SCIENCES CHAIR demyelinating disorders On a scale of 1-10 the patient rates their quality of life: not rated Care Plan Reviewed and Approved by both Pharmacist and Patient: Yes Interventions (if applicable): No Pharmacist follow-up needed: Yes Delivery Method: Delivery Patient understands no changes to current drug regimen were made at the appointment and that [facility] isproviding recommendations (summary located at top of note) for provider review and follow up. Danica Taylor RPH 01/30/23 12:22 PM documented in this encounter Plan of Treatment Not on file documented as of this encounter Goals Goal Patient Goal Type Associated Problems Recent Progress Patient-Stated? Author BRYAN Self-Management Patient Facing Action Plan No Danica Taylor [facility] Note: Judson Patel Jr. Is hoping to decrease his prednisone dosage and keep pain levels at a minimum. He is hoping that Actemra will be able to keep him walking since before prednisone he had a hard time standing up and walking around. documented as of this encounter Visit Diagnoses Not on filedocumented in this encounter Care Teams Construction Or Leak Gang Laborer Relationship Specialty Start Date End Date Yesy Nagy APRN [address] [place] [address] PCP - General Geriatric Medicine 08/02/22 documented as of this encounter
--- OUTSIDE RECORDS SUMMARY | 2024-10-02 19:29 | XMS_ITS | Encounter Summary ---
Author Organization [facility] [place] [address] Care Team Providers Care International Representative Name Role Phone Yesy Nagy APRN Primary Care Provider Encounter Details Date Type Department Care Team (Late st Contact Info) Description 03/16/2023 Telephone [place] [address] Thony Dee MD [facility] [place] [address] Social History Tobacco Use Types Packs/Day Years [...] stable. Thony Dee MD Rheumatology Fellow Pager: [phone] documented in this encounter Plan of Treatment [...] on filedocumented in this encounter Care Teams International Representative Relationship Specialty Start Date End Date Yesy Nagy APRN [address] [place] [address] PCP - General Geriatric Medicine 08/02/22 documented as of this encounter
--- OUTSIDE RECORDS SUMMARY | 2024-10-02 19:29 | XMS_ITS | Encounter Summary ---
Author Organization [facility] [place] [address] Care Team Providers Care Sap Business Intelligence Consultant Name Role Phone Ysey Nagy APRN Primary Care Provider [phone] Encounter Details Date Type Department Care Team (Late st Contact Info) Description 11/22/2022 [place] [address] Jennifer Hebert MA Social History [...] Taylor, [facility] Note: Judson Patel Jr. Is hoping to decrease his prednisone dosage and keep pain levels at a minimum. He is hoping that Actemra will be able to keep him walking since before prednisone he had a hard time standing up and walking around. documented as of this encounter Visit Diagnoses Not on filedocumented in this encounter Care Teams Sap Business Intelligence Consultant Relationship Specialty Start Date End Date Yesy Nagy APRN [address] [place] [address] PCP - General Geriatric Medicine 08/02/22 documented as of this encounter
--- OUTSIDE RECORDS SUMMARY | 2024-10-02 19:29 | XMS_ITS | Encounter Summary ---
Author Organization [facility] Address [facility] [place] [address] Care Team Providers Care Apns Name Role Phone Yesy Nagy APRN Primary Care Provider [phone] Encounter Details Date Type Department Care Team (Latest Contact Info) Description 12/04/2022 11:45 AM EST TH Visit (TeleHealth) [place] [address] Ananya Payan DO [facility] [place] [address] GCA (giant cell arteritis) Social History Tobacco [...] by Ananya Payan DO or the rooming printing assistant as documented in their note. This [...] fracture. He is following with Ortho at [facility] for this. He reports pain and [...] CRP ESR. He will do this at [facility] on the when he has a [...] Dr. Stephen Payan DO Rheumatology Fellow Pager: [phone] * Stephen Payan MD - 12/04/2022 11:45 [...] arteritis documented in this encounter Care Teams Apns Relationship Specialty Start Date End Date Yesy Nagy APRN [address] [place] [address] PCP - General Geriatric Medicine 08/02/22 documented as of this encounter
--- OUTSIDE RECORDS SUMMARY | 2024-10-02 19:29 | XMS_ITS | Encounter Summary ---
Author Organization [facility] Address [facility] [place] [address] Care Team Providers Care Clinical Implementation Specialist Name Role Phone Yesy Nagy APRN Primary Care Provider [phone]- [phone] Reason for Visit * Reason Comments Medication Refill Medication Management Encounter Details Date Type Department Care Team (Late st Contact Info) Description 02/22/2023 Specialty [place] [address] Rico Garcia [facility] Social History Tobacco Use [...] this encounter Progress Notes * Rico Garcia [facility] - 02/22/2023 8:49 AM EDT Specialty Pharmacy Consultation; Rico Garcia [facility] Comprehensive Medication Management (CMM): Specialty [...] consultation on Actemra for the treatment of GCA/GA. Medications, allergies, and medical conditions were reviewed [...] Facing Action Plan No Macqueen, Danica M, [facility] Note: Judson Robe [...] arteritis documented in this encounter Care Teams Clinical Implementation Specialist Relationship Specialty Start Date End Date Yesy Nagy APRN [address] [place] [address] PCP - General Geriatric Medicine 08/02/22 documented as of this encounter
--- OUTSIDE RECORDS SUMMARY | 2024-10-02 19:29 | XMS_ITS | Encounter Summary ---
Author Organization [facility] [place] [address] Care Team Providers Care Golf Superintendent Name Role Phone Yesy Nagy APRN Primary Care Provider [phone]- [phone] Reason for Referral * Consultation (STAT) - Closed Specialty Diagnoses / Procedures Referred By Contaugustin t Referred To Contact Dermatology Diagnoses Candidal paronychia Yesy Nagy APRN [address] [place] [address] [facility] Dermatology [address] [place] [address] Referral ID Status Reason Start Date Expiration Date V isits Requested Visits Authorized [id number] Closed Consult, Test & Treat 05/07/2023 05/06/2024 1 1 Encounter Details Date Type Department Care Team (Latest Contact Info) Description 05/07/2023 Transcribe Orders eDH Incoming Referrals [phone] Yesy Nagy APRN [address] [place], [place] [address] Candidal paronychia Social History Tobacco Use Types [...] nails documented in this encounter Care Teams Golf Superintendent Relationship Specialty Start Date End Date Yesy Nagy APRN [address] [place] [address] PCP - General Geriatric Medicine 08/02/22 documented as of this encounter
--- OUTSIDE RECORDS SUMMARY | 2024-10-02 19:29 | XMS_ITS | Encounter Summary ---
Author Organization [facility] [place] [address] Care Team Providers Care Film Editor Name Role Phone Yesy Nagy APRN Primary Care Provider Reason for Referral * Diagnostic Test (Routine) - Closed Specialty Diagnoses / Procedures Referred By Contac t Referred To Contact Radiology Diagnoses Gait instability Tremor Procedures NM Brain Imaging for Parkinsons Disease Srikanth Morris MD [facility] [place] [address] [place] [address] Referral ID Status Reason Start Date Expiration Date V isits Requested Visits Authorized [id number] Closed Specialty Service Requested 01/23/2023 07/23/2024 1 1 Reason for Visit * Diagnostic Test (Routine) - Closed Specialty Diagnoses / Procedures Referred By Contac t Referred To Contact Radiology Diagnoses Gait instability Tremor Procedures NM Brain Imaging for Parkinsons Disease Srikanth Morris MD [facility] [place] [address] [place] [address] Referral ID Status Reason Start Date Expiration Date V isits Requested Visits Authorized [id number] Closed Specialty Service Requested 01/23/2023 07/23/2024 1 1 Encounter Details Date Type Department Care Team (Latest Contact Info) Description 02/23/2023 8:23 AM EDT Hospital Encounter [place] [address] Srikanth Morris [place] [address] Gait instability; Tremor Discharge Disposition: Home Social [...] (FISH OIL ORAL) Take by mouth. Ascorbic Xojm-Jfjrszocg-Yxu (Emergen-C) 1,000 mg Powder Effervescent in Packet [...] mg/0.9 mL Pen InjectorIndications: GCA (giant cell arteritis),buttermaker current use of systemic steroids Inject 0.9 [...] have questions please contact the health healthcare management that requested your imaging first. ? Electronically signed by: Seth Guillen MD, [facility] ([phone]), at 02/23/2023 4:35 PM Narrative 02/23/2023 4:35 [...] Note Seth Guillen MD - 02/23/2023 EXAMINATION: CA BRAIN IMAGING FOR PARKINSONS DISEASE CLINICAL HISTORY: [...] who have questions please contactthe health healthcare management that requested your imaging first. Srikanth Morris MD [facility] [place] ORDERABLES documented in this encounter Visit [...] mLs documented in this encounter Care Teams Film Editor Relationship Specialty Start Date End Date Yesy Nagy APRN [address] [place] [address] PCP - General Geriatric Medicine 08/02/22 documented as of this encounter
--- OUTSIDE RECORDS SUMMARY | 2024-10-02 19:29 | XMS_ITS | Encounter Summary ---
Author Organization [facility] Address [facility] [place] [address] Care Team Providers Care Tint Layer Name Role Phone Yesy Nagy APRN Primary Care Provider Encounter Details Date Type Department Care Team (Late st Contact Info) Description 12/18/2022 [place] [address] Emma Zuñiga LPN Social History [...] on filedocumented in this encounter Care Teams Tint Layer Relationship Specialty Start Date End Date Yesy Nagy APRN [address] [place] [address] PCP - General Geriatric Medicine 08/02/22 documented as of this encounter
--- OUTSIDE RECORDS SUMMARY | 2024-10-02 19:29 | XMS_ITS | Encounter Summary ---
Author Organization [facility] [place] [address] Care Team Providers Care Food And Drug Research Scientist Name Role Phone Yesy Nagy APRN Primary Care Provider [phone]- [phone] Encounter Details Date Type Department Care Team (Latest Contact Info) Description 04/25/2023 10:30 AM EDT TH Visit (TeleHealth) [place] [phone] Ananya Payan DO [facility] [place] [address] GCA (giant cell arteritis); Immunosuppressed status; Medication monitoring encounter; residential current use of systemic steroids; PMR (polymyalgia [...] Telephone Follow Up Note PCP: Yesy MacLeod, BRIDGE REPAIRER Judson K Jorge Jr. is a 72 y.o. male who we are seeing for the continuing management of GCA. At the outset of this visit, I made them aware that this telephone visit may be billed similar to aclinic visit to him or his insurance company. MR. Patel were in agreement to continue this visit. Total telephone visit time: [id number] for a total 20 minutes. Rheum History: [...] of prednisone. -He was seen by his billet assembler for eye pain last week and was treated for possible conjunctivitis I do not have these records.. He reports that his welfare centre manager felt that there was contamination from his [...] resuming tocilizumab. Plan - Obtain records from [facility] visit - Continue Prednisone 5mg daily - Hold Tolcilizumab x2 weeks - Continue Calcium and Vit D supplement - Phone follow-up in 2 weeks - Follow up in person in 2 months. Patient was discussed with Dr. Luis Payan DO Rheumatology Fellow Pager: [phone] * Pravin Smith MD - 04/25/2023 10:30 AM EDT Attending Addendum The patient had a TeleHealth visit with Dr. Ananya Payan, rheumatology fellow I. We reviewed the patient's interval history and Dr. Payan's management plan. I agree with Dr. Payan's assessment and plan. I did not directly interact with the patient. Pravin Smith MD Staff Regional Loss Prevention Manager documented in this encounter Plan of [...] monitoring encounter Encounter for therapeutic drug monitoring hammer repairer current use of systemic steroids Encounter for long-term (current) use of steroids PMR (polymyalgia rheumatica) Polymyalgia rheumatica documented in this encounter Care Teams Food And Drug Research Scientist Relationship Specialty Start Date End Date Yesy Nagy APRN [address] [place] [address] PCP - General Geriatric Medicine 08/02/22 documented as of this encounter
--- OUTSIDE RECORDS SUMMARY | 2024-10-02 19:29 | XMS_ITS | Encounter Summary ---
Author Organization [facility] Address [facility] [place] [address] Care Team Providers Care Bag Liner Name Role Phone Yesy Nagy APRN Primary Care Provider Encounter Details Date Type Department Care Team (Late st Contact Info) Description 01/15/2023 Orders [place] [address] Ananya Payan, [facility] [place] [address] GCA (giant cell arteritis) Social History Tobacco [...] arteritis documented in this encounter Care Teams Bag Liner Relationship Specialty Start Date End Date Yesy Nagy APRN [address] [place] [address] PCP - General Geriatric Medicine 08/02/22 documented as of this encounter
--- OUTSIDE RECORDS SUMMARY | 2024-10-02 19:29 | XMS_ITS | Encounter Summary ---
Author Organization [facility] [place] [address] Care Team Providers Care Tube Trailer Filler Name Role Phone Yesy Nagy APRN Primary Care Provider [phone] Encounter Details Date Type Department Care Team (Latest Contact Info) Description 02/06/2023 4:30 PM EDT TH Visit (TeleHealth) [place] [phone] Ananya Payan, [facility] [place] [address] GCA (giant cell arteritis); Medication monitoring encounter; termite control technician current use of systemic steroids; Immunosuppressed status [...] 30 mg and taper. Patient has a shipping specialist, recommend he call the office to schedule [...] inflammatory markers CRP ESR, labs sent to [facility] - follow up with eye clinic -We will follow-up in 3 weeks Patient was discussed with Dr. Andres Payan DO, PGY4 Rheumatology Fellow Pager: [phone] * Tess Morse MD - 02/06/2023 4:30 [...] recently started on Actemra. Tess Morse MD [email or web address]$ documented in this encounter Miscellaneous Notes * [...] mechanism documented in this encounter Care Teams Tube Trailer Filler Relationship Specialty Start Date End Date Yesy Nagy APRN [address] [place] [address] PCP - General Geriatric Medicine 08/02/22 documented as of this encounter
--- OUTSIDE RECORDS SUMMARY | 2024-10-02 19:29 | XMS_ITS | Encounter Summary ---
Author Organization [facility] [place] [address] Care Team Providers Care Material Expediter Name Role Phone Yesy Nagy APRN Primary Care Provider [phone]- [phone] Reason for Visit * Reason Comments Medication Management Encounter Details Date Type Department Care Team (Late st Contact Info) Description 05/11/2023 Specialty [place] [phone] Homa March RPH Social History Tobacco Use [...] (CMM) Judson Patel Jr. [address] [facility] [address] Telephone Information: Work Phone Not on file. [...] on filedocumented in this encounter Care Teams Material Expediter Relationship Specialty Start Date End Date Yesy Nagy APRN [address] [facility] [place] [address] PCP - General Geriatric Medicine 08/02/22 documented as of this encounter
--- OUTSIDE RECORDS SUMMARY | 2024-10-02 19:29 | XMS_ITS | Encounter Summary ---
Author Organization [facility] Address [facility] [place] [address] Care Team Providers Care Machinist Mechanic Name Role Phone YakovChristianaYesybe LY Primary Care Provider [phone]- [phone] Reason for Visit * Consultation (STAT) - Closed Specialty Diagnoses / Procedures Referred By Socrates t Referred To Contact Dermatology Diagnoses Candidal paronychia Yesy Nagy APRN [address] [place] [address] [facility] Dermatology [address] [place] [address] Referral ID Status Reason Start Date Expiration Date V isits Requested Visits Authorized [id number] Closed Consult, Test & Treat 05/07/2023 05/06/2024 1 1 Encounter Details Date Type Department Care Team (Latest Contact Info) Description 05/23/2023 11:20 AM EDT Office Visit Dermatology at [facility] [address] [place] [address] Rafa Rachel MD [facility] [place] [address] Onychomycosis (Primary Dx); Chronic paronychia [...] Obtain labs in 3 weeks (sent to [facility]) Figure 1 Figure 2 Photo(s) taken and charted with patient's verbal consent. Other: Reviewed and/or interpreted test results Reviewed external notes/records RTC: 3 months for candidal paronychia follow up []Note routed to casing material weigher [x]Recall placed in scheduling system []Appointment scheduled at checkout Scribe attestation: Alex Rivera has performed the documentation for this encounter in the presence of and acting as a scribe for Rafa Rachel MD. I performed the above scribed service and agree with the accuracy of the documentation in this encounter. Reviewed and signed by: Rafa Rachel MD Dermatology [facility] Patient seen and evaluated with staff project development director: Tonny Gudino MD Department of Dermatology [facility] * Tonny Gudino MD - 05/23/2023 11:20 [...] [facility] Note: Judson Nagel Jorge Funk Is [...] laterality documented in this encounter Care Teams Machinist Mechanic Relationship Specialty Start Date End Date Yesy Nagy APRN [address] [place] [address] PCP - General Geriatric Medicine 08/02/22 documented as of this encounter
--- OUTSIDE RECORDS SUMMARY | 2024-10-02 19:29 | XMS_ITS | Encounter Summary ---
Author Organization [facility] [place] [address] Care Team Providers Care Heel Sander Rubber Name Role Phone Yesy Nagy APRN Primary [...] on filedocumented in this encounter Care Teams Heel Sander Rubber Relationship Specialty Start Date End Date Yesy Nagy APRN [address] [place] [address] PCP - General Geriatric Medicine 08/02/22 documented as of this encounter
--- OUTSIDE RECORDS SUMMARY | 2024-10-02 19:30 | XMS_ITS | Encounter Summary ---
Author Organization [facility] [place] [address] Care Team Providers Care Inspector Fibrous Wallboard Name Role Phone Yesy Nagy APRN Primary Care Provider [phone] Reason for Visit * Reason Comments Prior Authorization Actemra Actpen 162 m g/0.9 ml SOAJ Encounter Details Date Type Department Care Team (Late st Contact Info) Description 08/30/2022 Specialty [place] [phone] Toro Kraft, [facility] Social History Tobacco Use Types [...] Patel Jr. Patient : 1950 Patient Address: [facility] [address] [place] [address] (home) Medication Name: ACTEMRA ACTPEN 162 MG/0.9 ML SUBCUTANEOUS PEN INJECTOR Medication ID: [id number] Subscriber Insurance: [employer] Medicare Subscriber Insurance Comment: Fax: Physician: JOSE F CAMERON Physician Comment: Sent Via: [facility] Carlson: [id number] Ref/Case/PA#: Medication Strength Frequency Requested: Actemra Actpen 162 mg/0.9 ml SOAJ Inject 162 mg (1 Pen) Subcutaneously Every 7 Days Qty/Day Supply: 03/23 New Start: New to Therapy Diagnosis & ICD-10 Code: 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 Patient Notified: Yes Submission Notes: - New Medication Toro Kraft CPHT 08/30/22 12:35 PM * Toro Kraft CPHT - 08/30/2022 12:34 PM EDT [facility], Prior Authorization Approval Medication Name: ACTEMRA ACTPEN 162 MG/0.9 ML SUBCUTANEOUS PEN INJECTOR Medication ID: [id number] Approval Dates: 11/26/2021 to 11/25/2023 Insurance requirements/notes: - Patient May Fill With Pharmacy Other Notes: None Case/Reference #: [id number] Approval notification Received via: [facility] Copay: $4.00 Copay assistance: None Copay Notes: None Insurance mandated Pharmacy: [facility] Fillable at [facility]: Yes Pharmacy staff will be reaching out to the patient to inform them of their medication's approval byadventhealth insurance. If applicable, a pharmacist will speak [...] filedocumented in this encounter Care Teams Inspector Fibrous Wallboard Relationship Specialty Start Date End Date Yesy Nagy APRN [address] [place] [address] PCP - General Geriatric Medicine 08/02/22 documented as of this encounter
--- OUTSIDE RECORDS SUMMARY | 2024-10-02 19:30 | XMS_ITS | Encounter Summary ---
Author Organization [facility] [place] [address] Care Team Providers Care Optimization Manager Name Role Phone Yesy Nagy APRN Primary Care Provider Encounter Details Date Type Department Care Team (Late st Contact Info) Description 09/01/2022 [place] [phone] Ananya Payan, [facility] [place] [address] Social History Tobacco Use Types Packs/Day Years [...] to go to the ED by the control cabinet assembler fellow, he called 911, but by the [...] appointment. Ananya Payan DO Rheumatology Fellow Pager: [phone] documented in this encounter Plan of Treatment Not on file documented as of this encounter Visit Diagnoses Not on filedocumented in this encounter Care Teams Optimization Manager Relationship Specialty Start Date End Date Yesy Nagy APRN [address] [place] [address] PCP - General Geriatric Medicine 08/02/22 documented as of this encounter
--- OUTSIDE RECORDS SUMMARY | 2024-10-02 19:30 | XMS_ITS | Encounter Summary ---
Author Organization [facility] Address [facility] [place] [address] Care Team Providers Care Emergency Vehicle Technician Name Role Phone Yesy Nagy APRN Primary Care Provider [phone] Encounter Details Date Type Department Care Team (Late st Contact Info) Description 08/27/2022 Telephone [place] [phone] Pravin Sethi MD [facility] [place] [address] Social History Tobacco Use Types Packs/Day Years [...] plan. Pravin Sethi MD Rheumatology Fellow Pager: [phone] documented in this encounter Plan of Treatment Not on file documented as of this encounter Visit Diagnoses Not on filedocumented in this encounter Care Teams Emergency Vehicle Technician Relationship Specialty Start Date End Date Yesy Nagy APRN [address] [place] [address] PCP - General Geriatric Medicine 08/02/22 documented as of this encounter
--- OUTSIDE RECORDS SUMMARY | 2024-10-02 19:30 | XMS_ITS | Encounter Summary ---
Author [facility] [place] [address] Care Team Providers Care Forge Helper Name Role Phone Yesy Nagy MALACHI Primary Care Provider [phone] Reason for Visit * Reason Comments Specialty Pharmacy Review Tocilizumab (A ctemra) 162 mg/0.9 mL Pen Injector Encounter Details Date Type Department Care Team (Late st Contact Info) Description 08/30/2022 Specialty [place] [address] Yuliya Booker, TENNIS CENTRE MANAGER Social History Tobacco Use Types Packs/Day Years [...] RPH - 08/30/2022 12:06 PM EDT The [facility] has completed a benefits investigation for Judson Patel Jr. to review their eligibility to fill at [facility]. Per patient's medication list they are prescribed Actemra and the medication is able to be filled at the [facility]. Judson Patel Jr. elects to fill with [facility] under current insurance plan's mandate. [...] on filedocumented in this encounter Care Teams Forge Helper Relationship Specialty Start Date End Date Yesy Nagy APRN [address] [place] [address] PCP - General Geriatric Medicine 08/02/22 documented as of this encounter
--- OUTSIDE RECORDS SUMMARY | 2024-10-02 19:30 | XMS_ITS | Encounter Summary ---
Author Organization [facility] Address [facility] [place] [address] Care Team Providers Care Distribution Associate Name Role Phone Yesy Nagy APRN Primary Care Provider [phone] Encounter Details Date Type Department Care Team (Late st Contact Info) Description 09/14/2022 10:15 AM EDT Office [place] [phone] Ananya Payan, [facility] [place] [address] GCA (giant cell arteritis); Immunosuppressed status Social [...] prednisone -Patient reports he had labs on [facility] this week ROS (positives in bold): [...] pedal edema Labs/Studies: Reviewed. -Requested labs from [facility]. Assessment/Plan: 71-year-old male with past medical [...] [facility] I did recommend an MRI/MRA of his brain due to history of disequilibrium to evaluate for a posterior circulation stroke and to evaluate temporal arteries on CTA. Patient declined due to cost. Currently is on 50 mg of prednisone. We will obtain lab work from [facility] to ensure inflammatory markers are low and plan to continue taper prednisone. -Patient has not started tocilizumab yet, discussed risk and benefits of the medication. Pharmacistwill show patient how to use it today, patient is agreeable to starting medication. -Recommended obtaining DEXA to evaluate for bone density. Order has been placed at last visit Plan -Requested inflammatory markers from [facility] -prednisone taper -40 mg X 1 [...] Dr. Neel Payan DO Rheumatology Fellow Pager: [phone] * Linda Shaikh DO - 09/14/2022 10:15 [...] Facing Action Plan No Danica Taylor, [facility] Note: Judson Patel Jr. Is hoping [...] mechanism documented in this encounter Care Teams Distribution Associate Relationship Specialty Start Date End Date Yesy Nagy APRN [address] [place] [address] PCP - General Geriatric Medicine 08/02/22 documented as of this encounter
--- OUTSIDE RECORDS SUMMARY | 2024-10-02 19:30 | XMS_ITS | Encounter Summary ---
Author Organization [facility] [place] [address] Care Team Providers Care Medical Research Assistant Name Role Phone Yesy Nagy MALACHI Primary Care Provider [phone] Reason for Visit * Reason Comments Medication Management Patient Education Encounter Details Date Type Department Care Team (Late st Contact Info) Description 09/14/2022 Specialty [place] [address] Danica Taylor [facility] [...] Requirements: no Medication Reconciliation Discrepancies (compared to [facility] med list) -none Medication List: [...] OIL ORAL) Take by mouth. ??? Ascorbic Hrvq-Lyjiakpng-Fwq (Emergen-C) 1,000 mg Powder Effervescent in Packet [...] specialty services: Yes Patient accepted offer to recreational counselor: select all, adherence/missed doses, cost of [...] to doctor discussed, reminder to refill or lease picker medication discussed, self-monitoring discussed, start medication [...] Social Assessment: Does patient have a primary long term care social worker: No Does patient have an emergency contact on file: Yes Does patient need referral to long term care social worker: No Does patient need referral [...] symptoms of infection, signs and symptoms of MECHATRONICS TECHNICIAN demyelinating disorders Care Plan Reviewed and Approved [...] filedocumented in this encounter Care Teams Medical Research Assistant Relationship Specialty Start Date End Date Yesy Nagy APRN [address] [place] [address] PCP - General Geriatric Medicine 08/02/22 documented as of this encounter
--- OUTSIDE RECORDS SUMMARY | 2024-10-02 19:30 | XMS_ITS | Encounter Summary ---
Author Organization [facility] Address [facility] [place] [address] Care Team Providers Care Welding Machine Setter Name Role Phone Yesy Ngay APRN Primary Care Provider [phone] Reason for Visit * Consultation (Routine) - Closed Specialty Diagnoses / Procedures Referred By Socrates pleitez Referred To Contact Rheumatology Diagnoses GCA (giant cell arteritis) Yesy Nagy APRN [address] [place] [address] [facility] Rheumatology [address] [place] [phone] Referral ID Status Reason Start Date Expiration Date V isits Requested Visits Authorized [id number] Closed Consult, Test & Treat 08/02/2022 08/02/2023 6 6 Encounter Details Date Type Department Care Team (Late st Contact Info) Description 08/08/2022 3:45 PM EDT Office [place] [address] Linda Shaikh, [facility] [place] [address] Ananya Payan, [facility] [place] [address] PMR (polymyalgia rheumatica); Osteoporosis, unspecified osteoporosis type, [...] a ride to be seen here at [facility] prefers to follow-up with his [...] nerves II through XII intact, Romberg negative, faomhe-wa-gatj normal tnmb-am-hakk normal resting tremor noted. Gait slightly unsteady [...] obtaining transportation to come to appointments at [facility]. Would prefer to follow with his [...] 5:39 PM EDT) Neutrophil % 90.4 % [facility] Neutrophil Absolute 10.07(H) 1.70 - 6.10 x10(3)/mc L [facility] Lymph % 5.3 % [facility] Lymphocytes Abs 0.6(L) 0.9 - 3.2 x10(3)/mc L [facility] Monocyte % 3.1 % [facility] Monocyte Abs 0.4 0.3 - 0.9 x10(3)/mc L [facility] Eos % 0.0 % [facility] Eosinophils Abs 0.0 0.0 - 0.4 x10(3)/mc L [facility] Basophil % 0.2 % [facility] Baso Absolute 0.0 0.0 - 0.1 x10(3)/mc L [facility] [...] Absolute 0.11(H) 0.00 - 0.04 x10(3)/mc L [facility] Blood 08/08/2022 5:39 PM EDT 08/08/2022 5:51 PM EDT Narrative Resulting Agency Comment Spec In Lab Ananya Payan DO HEMATOLOGY ORDERABLE S [facility] [place] [address] * (ABNORMAL) Hemogram (08/08/2022 5:39 PM EDT) White Blood Cell 11.1(H) 4.0 - 9.5 x10(3)/mc L [facility] Red Blood Cell 3.92(L) 4.58 - 5.54 x10(6)/mc L [facility] Hemoglobin 13.1(L) 13.7 - 16.5 g/dL [facility] Hematocrit 36.0(L) 40.5 - 48.5 % [facility] Mean Cell Volume 91.8 82.9 - 93.1 fL [facility] Mean Cell Hemoglobin 33.4(H) 27.5 - 32.1 pg [facility] Mean Cell Hemoglobin Concentration 36.4(H) 32.0 - 35.7 g/dL [facility] Platelet 273 145 - 357 x10(3)/mc L [facility] RDW Standard Deviation 47.6(H) 36.0 - 45.0 fL [facility] RDW coefficient of variation 14.1(H) 11.4 - 13.8 % [facility] Mean Platelet Volume 8.7 7.6 - 12.9 fL [facility] NRBC% auto 0.0 % [facility] NRBC Absolute 0.000 0.000 - 0.000 x10(3)/mc L [facility] Blood 08/08/2022 5:39 PM EDT 08/08/2022 5:51 PM EDT Narrative Resulting Agency Comment Spec In Lab Ananya Payan DO HEMATOLOGY ORDERABLE S Performing Organization Address [facility]/ZIP Co de Phone Number [facility] [place] [address] * (ABNORMAL) CRP, acute inflammation (08/08/2022 5:39 PM EDT) C-Reactive Protein 20.2(H) <=4.9 mg/L [facility] Blood 08/08/2022 5:39 PM EDT 08/08/2022 5:51 PM EDT Narrative Resulting Agency Comment Spec In Lab Linda Shaikh DO CHEMISTRY ORDERABL ES Performing Organization Address [facility] Co de Phone Number [facility] [place] [address] * (ABNORMAL) Sedimentation rate (08/08/2022 5:39 PM EDT) [facility] Sedimentation Rate Automated 60(H) 3 - 46 mm/hr [facility] [...] DO HEMATOLOGY ORDERAB LES Performing Organization Address [facility] Co de Phone Number [facility] [place] [address] * (ABNORMAL) Comprehensive metabolic panel (non-fasting) (08/08/2022 5:39 PM EDT) Glucose 179 65 - 199 mg/dL [facility] Comment:Diabetes: >=200 mg/d L plus symptoms Blood Urea Nitrogen 18 10 - 20 mg/dL [facility] [...] - 107 mmol/L [facility] Carbon Dioxide 24 22 - 31 mmol/L [facility] Anion Gap 12 5 - 15 mmol/L [facility] Calcium 8.9 8.5 - 10.5 mg/dL [facility] Protein, Total 7.1 6.1 - 8.0 g/dL [facility] Albumin 4.3 3.2 - 5.2 g/dL [facility] Aspartate Aminotransferase 18 0 - 39 unit/L [facility] Alanine Aminotransferase 23 0 - 55 unit/L [facility] Alkaline Phosphatase 71 40 - 130 unit/L [facility] Bilirubin, Total 0.5 0.2 - 1.3 mg/dL [facility] Est Glomerular Filtration Rate 85 >=60 mL/min/1. 73 m?? [facility] [...] CHEMISTRY ORDERABL ES Performing Organization Address [facility] Co de Phone Number [facility] [place] [address] * (ABNORMAL) Protein Electrophoresis, serum (08/08/2022 5:39 PM EDT) Total Prot Electrophoresis 6.7 6.1 - 8.0 g/dL [facility] Albumin Electrophoresis 4.11 3.20 - 5.20 g/dL [facility] Alpha 1 Globulin 0.19 0.10 - 0.30 g/dL [facility] Alpha 2 Globulin 1.04(H) 0.40 - 0.90 g/dL [facility] [...] CHEMISTRY ORDERABL ES Performing Organization Address [facility] Co de Phone Number [facility] [place] [address] * Vitamin B12 (08/08/2022 5:39 PM EDT) Vitamin B12 458 232 - 1,245 pg/mL [facility] Blood 08/08/2022 5:39 PM EDT 08/08/2022 5:51 PM EDT Narrative Resulting Agency Comment Spec In Lab Linda Shaikh DO CHEMISTRY ORDERABL ES Performing Organization Address [facility] Co de Phone [place] [address] documented in this encounter Visit Diagnoses Diagnosis PMR (polymyalgia rheumatica) Polymyalgia rheumatica Osteoporosis, unspecified osteoporosis type, unspecified pathological fracture presence documented in this encounter Care Teams Welding Machine Setter Relationship Specialty Start Date End Date Yesy Nagy APRN [address] [place] [address] PCP - General Geriatric Medicine 08/02/22 documented as of this encounter
--- OUTSIDE RECORDS SUMMARY | 2024-10-02 19:30 | XMS_ITS | Encounter Summary ---
Author Organization [facility] Address [facility] [place] [address] Care Team Providers Care Content Production Specialist Name Role Phone Ozzie Davis Primary Care Provider [phone] Reason for Visit * Reason Onset Date Comments Other 06/14/2016 Encounter Details Date Type Department Care Team (Late st Contact Info) Description 06/14/2016 [place] [address] Pedro Barreto MD [facility] [place] [address] Other Social History Tobacco Use Types Packs/Day [...] on filedocumented in this encounter Care Teams Content Production Specialist Relationship Specialty Start Date End Date Ozzie Davis PA [address] [place] [address] PCP - General General Internal Medicine 04/12/1605/30 documented as of this encounter
--- OUTSIDE RECORDS SUMMARY | 2024-10-02 19:30 | XMS_ITS | Encounter Summary ---
Author Organization [facility] [place] [address] Care Team Providers Care Dynamiter Name Role Phone Yesy Nagy APRN Primary Care Provider Encounter Details Date Type Department Care Team (Late st Contact Info) Description 11/21/2022 Telephone Rhe[place]ology [place] [phone] Ananya Payan, [facility] [place] [address] Social History Tobacco Use Types Packs/Day Years [...] Taylor, [facility] Note: Judson Patel Jr. Is hoping to decrease his prednisone dosage and keep pain levels at a minimum. He is hoping that Actemra will be able to keep him walking since before prednisone he had a hard time standing up and walking around. documented as of this encounter Visit Diagnoses Not on filedocumented in this encounter Care Teams Dynamiter Relationship Specialty Start Date End Date Yesy Nagy APRN [address] [place] [address] PCP - General Geriatric Medicine 08/02/22 documented as of this encounter
--- OUTSIDE RECORDS SUMMARY | 2024-10-02 19:30 | XMS_ITS | Encounter Summary ---
Author Organization [facility] [place] [address] Care Team Providers Care Salvage Diver Name Role Phone Yesy Nagy APRN Primary Care Provider Encounter Details Date Type Department Care Team (Late st Contact Info) Description 08/31/2022 [place] [address] Landy Monson RN Social History [...] call back from his Provider Dr Schuyler MATHUR([facility]). When returned call patient asked to speak to MD please. Message sent to Provider to review. documented in this encounter Plan of Treatment Not on file documented as of this encounter Visit Diagnoses Not on filedocumented in this encounter Care Teams Salvage Diver Relationship Specialty Start Date End Date Yesy Nagy APRN [address] [place] [address] PCP - General Geriatric Medicine 08/02/22 documented as of this encounter
--- OUTSIDE RECORDS SUMMARY | 2024-10-02 19:30 | XMS_ITS | Encounter Summary ---
Author Organization [facility] [place] [address] Care Team Providers Care Research Leader Name Role Phone Yesy Nagy APRN Primary Care Provider Encounter Details Date Type Department Care Team (Late st Contact Info) Description 11/01/2022 Telephone [place] [address] Landy Monson RN Social History [...] - 11/01/2022 2:03 PM EST Dusty, from [facility] Rad[facility] calls today asking if the order [...] filedocumented in this encounter Care Teams Research Leader Relationship Specialty Start Date End Date Yesy Nagy APRN [address] [facility] [place] [address] PCP - General Geriatric Medicine 08/02/22 documented as of this encounter
--- OUTSIDE RECORDS SUMMARY | 2024-10-02 19:30 | XMS_ITS | Encounter Summary ---
Author Organization Counts Include [facility] Address [facility] [place] [address] Care Team Providers Care Manager Social Work Name Role Phone Yesy Nagy APRN Primary Care Provider Encounter Details Date Type Department Care Team (Late st Contact Info) Description 08/24/2022 Telephone [place] [address] Thony Dee MD [facility] [place] [address] Social History Tobacco Use Types Packs/Day Years [...] tomorrow. Thony Dee MD Rheumatology fellow Pager: [phone] documented in this encounter Plan of Treatment Not on file documented as of this encounter Visit Diagnoses Not on filedocumented in this encounter Care Teams Manager Social Work Relationship Specialty Start Date End Date Yesy Nagy APRN [address] [place] [address] PCP - General Geriatric Medicine 08/02/22 documented as of this encounter
--- OUTSIDE RECORDS SUMMARY | 2024-10-02 19:30 | XMS_ITS | Encounter Summary ---
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 Labs were done at [facility], they were reviewed, ESR 33, CRP0.14. -For [...] Dr. Pamella Payan DO Rheumatology Fellow Pager: [phone] * Vianney Can MD - 10/24/2022 3:45 [...] [facility] Note: Judson Nagel Jorge Cisse. [...] of gait PMR (polymyalgia rheumatica) Polymyalgia rheumatica [facility] current use of systemic steroids Encounter for long-term (current) use of steroids documented in this encounter Care Teams Human Resources Executive Assistant Relationship Specialty Start Date End Date Yesy Nagy APRN [address] [place] [address] PCP - General Geriatric Medicine 08/02/22 documented as of this encounter
--- OUTSIDE RECORDS SUMMARY | 2024-10-02 19:30 | XMS_ITS | Encounter Summary ---
Author Organization [facility] [place] [address] Care Team Providers Care Student Financial Aid Manager Name Role Phone Yesy Nagy APRN Primary Care Provider Encounter Details Date Type Department Care Team (Late st Contact Info) Description 08/09/2022 Telephone [place] [address] Ananya Payan DO [facility] [place] [address] Social History Tobacco Use Types Packs/Day Years [...] in 1 week (will send labs to [facility]) IF inflammatory markers are normalized, will plan to start slowly tapering the prednisone. Plan for follow up in 1 month -Sep 14. 10:15 ( pt is going to check that he can get a ride that day, will call pt back tomorrow to confirm) . Ananya Payan DO Rheumatology Fellow Pager: [phone] documented in this encounter Plan of Treatment Scheduled Orders Name Type Priority Associated Diagnoses Orde r Schedule Sedimentation rate Lab Routine GCA (giant cell arteritis) Expected: 08/16/2022 (Approximate), Expires: 02/15/2023 documented as of this encounter Visit Diagnoses Diagnosis GCA (giant cell arteritis) Giant cell arteritis documented in this encounter Care Teams Student Financial Aid Manager Relationship Specialty Start Date End Date Yesy Nag[place] [place] [address] PCP - General Geriatric Medicine 08/02/22 documented as of this encounter
--- OUTSIDE RECORDS SUMMARY | 2024-10-02 19:30 | XMS_ITS | Encounter Summary ---
Author Organization [facility] Address [facility] [place] [address] Care Team Providers Care Box Maker Paperboard Name Role Phone Yesy Nagy APRN Primary Care Provider Encounter Details Date Type Department Care Team (Late st Contact Info) Description 11/21/2022 Orders [place] [phone] Ananya Payan, [facility] [place] [address] GCA (giant cell arteritis) Social History Tobacco [...] arteritis documented in this encounter Care Teams Box Maker Paperboard Relationship Specialty Start Date End Date Yesy Nagy APRN [address] [place] [address] PCP - General Geriatric Medicine 08/02/22 documented as of this encounter
--- OUTSIDE RECORDS SUMMARY | 2024-10-02 19:30 | XMS_ITS | Encounter Summary ---
Author Organization [facility] Address [facility]jo [facility] [place] [address] Care Team Providers Care Automated Process Operator Name Role Phone Yesy Nagy APRN Primary Care Provider Encounter Details Date Type Department Care Team (Late st Contact Info) Description 08/09/2022 Orders [place] [phone] Ananya Payan, [facility] [address] GCA (giant cell arteritis); Immunosuppressed status Social [...] encounter Results * HIV Screen, 4th Generation ([facility]CGP/APD/NLH) (01/23/2023 9:59 AM EST) HIV Ab/Ag Screen Negative Negative [facility] [...] DO CHEMISTRY ORDERABL ES Performing Organization Address [facility] de Phone Number [facility] [place] [address] * Hepatitis B Surface Antigen (01/23/2023 9:59 AM EST) Hepatitis B Surface Antigen Negative Negative [facility] Blood 01/23/2023 9:59 AM EST 01/23/2023 10:08 AM EST Narrative Resulting Agency Comment Spec In Lab Linda Beeew DO CHEMISTRY ORDERABL ES Performing Organization Address [facility] Phone Number [facility] [place] [address] * Hepatitis B Surface Antibody (01/23/2023 9:59 AM EST) Hepatitis B Surface Antibody, Quantitative <3.5 IU/L [facility] Comment: HepB Surface Ab Quant: Unvaccinated: < 8.5 IU/L Vaccinated: >= 11.5 IU/L Hepatitis B Surface Antibody Negative [facility] Comment: Expected Results: Vaccinated: Positive Unvaccinated: Negative Patient is presumed to be not vaccinated or immune to HBV infection. Blood 01/23/2023 9:59 AM EST 01/23/2023 10:08 AM EST Narrative Resulting Agency Comment Spec In Lab Linda Shaikh DO CHEMISTRY ORDERABL ES Performing Organization Address [facility] Co de Phone Number [facility] [place] [address] * Hepatitis B Core Antibody, Total (01/23/2023 9:59 AM EST) Hepatitis B Core Antibody Negative Negative [facility] Blood 01/23/2023 9:59 AM EST 01/23/2023 10:08 AM EST Narrative Resulting Agency Comment Spec In Lab Linda Shaikh DO CHEMISTRY ORDERABL ES Performing Organization Address [facility] Co de Phone Number [facility] [place] [address] * Hepatitis C Antibody (01/23/2023 9:59 AM EST) Hepatitis C Antibody Negative Negative [facility] Blood 01/23/2023 9:59 AM EST 01/23/2023 10:08 AM EST Narrative Resulting Agency Comment Spec In Lab Linda Shaikh DO CHEMISTRY ORDERABL ES Performing Organization Address City/State/[facility] Co de Phone Number [facility] [place] [address] documented in this encounter Visit Diagnoses Diagnosis GCA (giant cell arteritis) Giant cell arteritis Immunosuppressed status Unspecified disorder of immune mechanism documented in this encounter Care Teams Automated Process Operator Relationship Specialty Start Date End Date Yesy Nagy APRN [address] [place] [address] PCP - General Geriatric Medicine 08/02/22 documented as of this encounter
--- OUTSIDE RECORDS SUMMARY | 2024-10-02 19:30 | XMS_ITS | Encounter Summary ---
[place] [address] Care Team Providers Care Rn Advanced Name Role Phone Yesy Nagy APRN Primary Care Provider Encounter Details Date Type Department Care Team (Late st Contact Info) Description 08/24/2022 Telephone [place] [address] Landy Monson RN Social History [...] End Date Yesy Nagy APRN [address] [place] [address] PCP - General Geriatric Medicine 08/02/22 documented as of this encounter
--- OUTSIDE RECORDS SUMMARY | 2024-10-02 19:30 | XMS_ITS | Encounter Summary ---
Author Organization [facility] [place] [address] Care Team Providers Care Medical Coordinator Pesticide Use Name Role Phone Ozzie Davis Primary Care Provider [phone]- [phone] Reason for Visit * Consultation (Routine) - Closed Specialty Diagnoses / Procedures Referred By Contaugustin t Referred To Contact Neurology Diagnoses shooting pain down the bilat arms and down to LLE, loss of balance and dizzy spells. Ozzie Davis PA [address] [place] [address] [facility] [address] [place] [address] Referral ID Status Reason Start Date Expiration Date V isits Requested Visits Authorized [id number] Closed Consult, Test & Treat Connection Center 04/13/2016 04/13/2017 1 1 Encounter Details Date Type Department Care Team (Late st Contact Info) Description 06/09/2016 10:30 AM EDT Procedure [place] [phone] Sharlene Moore MD [facility] [place] [address] Neuropathy Social History Tobacco Use Types Packs/Day [...] TSH nl ?elevated ITA He lives in [place], [place]. 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 3 children - healthy No recent travel Water from [employer] (last tested 2006) Smoked 1 ppd for [...] KARAN AGUILAR MD PGY 4 Neurology Pager #[phone] I have seen the patient and reviewed [...] PM EDT Neuropathy HIV SCREEN, 4TH GENERATION ([facility]/CGP/APD/NLH) Routine 06/09/2016 12:38 PM EDT Neuropathy ANGIOTENSIN [...] (06/09/2016 12:38 PM EDT) ITA Neg Neg [facility] Blood specimen (specimen) 06/09/2016 12:38 PM EDT 06/09/2016 1:47 PM EDT Narrative Resulting Agency Comment Spec In Lab Sharlene Moore MD LAB SEND OUT ORDERAB LES [facility] [place] [address] * (ABNORMAL) Extractable Nuclear Antigen (BEBO) Ab (06/09/2016 12:38 PM EDT) BEBO Ab Test ?Result ?Flag ??Unit ??RefValue Ab to Extractable Nuclear Ag Eval,S ??SS-A/Ro Ab, IgG, S ?<0.2 ?U -- REFERENCE VALUE -- <1.0 (Negative) ??SS-B/La Ab, IgG, S ?<0.2 ?U -- REFERENCE VALUE -- <1.0 (Negative) ??Sm Ab, IgG, S ? <0.2 ?U -- REFERENCE VALUE -- <1.0 (Negative) ??SOCIAL SECURITY ASSESSOR Ab, IgG, S ?<0.2 ?U -- REFERENCE VALUE -- <1.0 (Negative) ??Scl 70 Ab, IgG, S ? 7.6 ?H ?U -- REFERENCE VALUE -- <1.0 (Negative) Interpretation: Positive (>=1.0) ??Megan 1 Ab, IgG, S ? <0.2 ?U -- REFERENCE VALUE -- <1.0 (Negative) Test Performed by: [facility] [place] [address] Darkroom Technician: Stephen Caldera II, M.D., Ph.D. (A) [facility] Blood specimen (specimen) 06/09/2016 12:38 PM EDT 06/09/2016 2:47 PM EDT Narrative Resulting Agency Comment Spec In Lab Sharlene Moore MD LAB SEND OUT ORDERAB LES [facility] [place] [address] * HIV Screen, 4th Generation (06/09/2016 12:38 PM EDT) [facility] HIV Ab/Ag Screen Negative Negative [facility] Comment: This 4th Generation HIV [...] Moore MD CHEMISTRY ORDERABLES Performing Organization Address [facility]/ZIP Co de Phone Number [facility] [place] [address] * Angiotensin Converting Enzyme (06/09/2016 12:38 PM EDT) [facility] [place] (MARCH) 11 8 - 53 unit/L [facility] Comment: Test Performed by: [place] [id number] Darkroom Technician: Stephen Caldera II, M.D., Ph.D. Blood specimen (specimen) 06/09/2016 12:38 PM EDT 06/09/2016 1:30 PM EDT Narrative Resulting Agency Comment Spec In Lab Sharlene Moore MD LAB SEND OUT ORDERAB LES [facility] [place] [address] * Folate, serum (06/09/2016 12:38 PM EDT) [facility] Folate 18.4 4.6 - 34.8 ng/mL [facility] Blood specimen (specimen) 06/09/2016 12:38 PM EDT 06/09/2016 12:46 PM EDT Narrative Resulting Agency Comment Spec In Lab Sharlene Moore MD CHEMISTRY ORDERABLES Performing Organization Address [facility]/ZIP Co de Phone Number [facility] [place] [address] * (ABNORMAL) Vitamin B6 (06/09/2016 12:38 PM EDT) [facility] Vitamin B6 (MARCH) 56(H) 5 - 50 mcg/L [facility] Comment: In this sample, the elevated pyridoxal 5-phosphate is likely related to dietary supplementation. Test Performed by: [facility] [place] [address] Darkroom Technician: Mirtha Hall, Ph.D. Blood specimen (specimen) 06/09/2016 12:38 PM EDT 06/09/2016 1:06 PM EDT Narrative Resulting Agency Comment Spec In Lab Sharlene Moore MD LAB SEND OUT ORDERAB LES Performing Organization Address [facility] Co de Phone Number [facility] [place] [address] * Vitamin B1, whole blood (06/09/2016 12:38 PM EDT) [facility] Vit B1 Lvl Wb (MARCH) 146 70 - 180 nmol/L [facility] Comment: Test Performed by: [facility] [place] [address] Darkroom Technician: Mirtha Hall, Ph.D. Blood specimen (specimen) 06/09/2016 12:38 PM EDT 06/09/2016 1:09 PM EDT Narrative Resulting Agency Comment Spec In Lab Sharlene Moore MD LAB SEND OUT ORDERAB LES Performing Organization Address [facility]/ZIP Co de Phone Number [facility] [place] [address] * Syphilis Antibody, IgG (06/09/2016 12:38 PM EDT) [facility] Syphilis IgG Neg Neg [facility] Blood specimen (specimen) 06/09/2016 12:38 PM EDT 06/10/2016 10:27 AM EDT Narrative Resulting Agency Comment Spec In Lab Sharlene Moore MD CHEMISTRY ORDERABLES Performing Organization Address [facility] Co de Phone Number [facility] [place] [address] * Lyme IgG & IgM Antibody (06/09/2016 12:38 PM EDT) Lyme Antibody Neg Neg [facility] Blood specimen (specimen) 06/09/2016 12:38 PM EDT 06/10/2016 10:27 AM EDT Narrative Resulting Agency Comment Spec In Lab Sharlene Moore MD IMMUNOLOGY ORDERABLE S Performing Organization Address City/[facility] Co de Phone Number [facility] [place] [address] * Protein Electrophoresis, serum (06/09/2016 12:38 PM EDT) Total Prot Electrophoresis 7.0 6.1 - 8.0 gm/dL [facility] Albumin Electrophoresis 4.42 3.60 - 6.00 gm/dL [facility] Alpha 1 Globulin 0.19 0.10 - 0.30 gm/dL [facility] Alpha 2 Globulin 0.85 0.40 - 0.90 gm/dL [facility] Beta Globulin 0.71 0.50 - 1.00 gm/dL [facility] Gamma Globulin 0.83 0.50 - 1.30 gm/dL [facility] M1 Band None Detected [facility] Blood specimen (specimen) 06/09/2016 12:38 PM EDT 06/09/2016 12:46 PM EDT Narrative Resulting Agency Comment Spec In Lab Sharlene Moore MD CHEMISTRY ORDERABLES [facility] [place] [address] documented in this encounter Visit Diagnoses Diagnosis Neuropathy Mononeuritis of unspecified site documented in this encounter Care Teams Medical Coordinator Pesticide Use Relationship Specialty Start Date End Date Ozzie Davis PA [address] [place] [address] PCP - General General Internal Medicine 04/12/1605/30 documented as of this encounter
--- OUTSIDE RECORDS SUMMARY | 2024-10-02 19:30 | XMS_ITS | Encounter Summary ---
Author Organization [facility] Address [facility] [place] [address] Care Team Providers Care Automotive Parts Counterperson Name Role Phone Ozzie Davis Primary Care Provider [phone] Encounter Details Date Type Department Care Team (Late st Contact Info) Description 06/14/2016 Telephone [place] [phone] Stephen Murray MD [facility] [place] [address] Social History Tobacco Use Types Packs/Day Years [...] on filedocumented in this encounter Care Teams Automotive Parts Counterperson Relationship Specialty Start Date End Date Ozzie Davis PA [address] [place] [address] PCP - General General Internal Medicine 04/12/1605/30 documented as of this encounter
--- OUTSIDE RECORDS SUMMARY | 2024-10-02 19:30 | XMS_ITS | Encounter Summary ---
Author Organization [facility] [address] Care Team Providers Care Insurance Examining Clerk Name Role Phone Yesy Nagy APRN Primary Care Provider Encounter Details Date Type Department Care Team (Late st Contact Info) Description 11/21/2022 Telephone [place] [phone] Ananya Payan, [facility] [address] Social History Tobacco Use Types Packs/Day Years [...] Danica Taylor, [facility] Note: Judson Patel Jr. Is hoping to decrease his prednisone dosage and keep pain levels at a minimum. He is hoping that Actemra will be able to keep him walking since before prednisone he had a hard time standing up and walking around. documented as of this encounter Visit Diagnoses Not on filedocumented in this encounter Care Teams Insurance Examining Clerk Relationship Specialty Start Date End Date Yesy Nagy APRN [address] [place] [address] PCP - General Geriatric Medicine 08/02/22 documented as of this encounter
--- OUTSIDE RECORDS SUMMARY | 2024-10-02 19:30 | XMS_ITS | Encounter Summary ---
Author Organization [facility] [place] [address] Care Team Providers Care Food Preservation Scientist Name Role Phone Yesy Nagy APRN [...] [facility] Note: Judson Robe Patel Jr. Is hoping to decrease his prednisone dosage and keep pain levels at a minimum. He is hoping that Actemra will be able to keep him walking since before prednisone he had a hard time standing up and walking around. documented as of this encounter Visit Diagnoses Not on filedocumented in this encounter Care Teams Food Preservation Scientist Relationship Specialty Start Date End Date Yesy Nagy APRN [address] [place] [address] PCP - General Geriatric Medicine 08/02/22 documented as of this encounter
--- OUTSIDE RECORDS SUMMARY | 2024-10-02 19:30 | XMS_ITS | Encounter Summary ---
Author Organization [facility] [place] [address] Care Team Providers Care Linen Attendant Name Role Phone Yesy Nagy APRN Primary Care Provider [phone] Reason for Visit * Reason Onset Date Comments Medication Problem 09/19/2022 Encounter Details Date Type Department Care Team (Late st Contact Info) Description 09/19/2022 [place] [address] Dayna Paez RN Medication Problem [...] RTC to Judson and he will contact [facility] [address] in [place] and donate the medication next time he is down this way. Will keep refrigerated. documented in this encounter Plan of Treatment Not on file documented as of this encounter Goals Goal Patient Goal Type Associated Problems Recent Progress Patient-Stated? Author DH Self-Management Patient Facing Action Plan No Danica Taylor [facility] [...] on filedocumented in this encounter Care Teams Linen Attendant Relationship Specialty Start Date End Date Yesy Nagy APRN [address] [place] [address] PCP - General Geriatric Medicine 08/02/22 documented as of this encounter
--- OUTSIDE RECORDS SUMMARY | 2024-10-02 19:30 | XMS_ITS | Encounter Summary ---
Author Organization [facility] Address [facility] [place] [address] Care Team Providers Care Geophysics Professor Name Role Phone Unknown Primary Care Provider Unavailabl e Encounter Details Date Type Department Care Team (Late st Contact Info) Description 07/14/2022 [place] [phone] Ananya Payan [facility] [place] [address] Social History Tobacco Use Types Packs/Day Years [...] Dr. Stephen Payan DO Rheumatology Fellow Pager: [phone] documented in this encounter Plan of Treatment Not on file documented as of this encounter Visit Diagnoses Not on filedocumented in this encounter Care Teams Geophysics Professor Relationship Specialty Start Date End Date Unknown None PCP - General 05/31/21 08/01/22 documented as of this encounter
--- OUTSIDE RECORDS SUMMARY | 2024-10-02 19:30 | XMS_ITS | Encounter Summary ---
Author Organization [facility] [place] [address] Care Team Providers Care Deburr Operator Name Role Phone Yesy Nagy MALACHI Primary Care Provider [phone] Encounter Details Date Type Department Care Team (Late st Contact Info) Description 10/03/2022 [place] [address] Dayna Paez RN Social History [...] working on this for him. Danica Taylor, [facility] sent to Dayna Paez RN Cc: [...] Taylor, [facility] Note: Judson Patel Is hoping to decrease his prednisone dosage and keep pain levels at a minimum. He is hoping that Actemra will be able to keep him walking since before prednisone he had a hard time standing up and walking around. documented as of this encounter Visit Diagnoses Not on filedocumented in this encounter Care Teams Deburr Operator Relationship Specialty Start Date End Date Yesy Nagy APRN [address] [place] [address] PCP - General Geriatric Medicine 08/02/22 documented as of this encounter
--- OUTSIDE RECORDS SUMMARY | 2024-10-02 19:30 | XMS_ITS | Encounter Summary ---
[place] [address] Care Team Providers Care Information Operator Name Role Phone Yesy Nagy APRN Primary Care Provider [phone] Encounter Details Date Type Department Care Team (Late st Contact Info) Description 09/13/2022 Telephone [place] [address] Jennifer Hebert MA Social History [...] filedocumented in this encounter Care Teams Information Operator Relationship Specialty Start Date End Date Yesy Nagy APRN [address] [place] [address] PCP - General Geriatric Medicine 08/02/22 documented as of this encounter
--- OUTSIDE RECORDS SUMMARY | 2024-10-02 19:30 | XMS_ITS | Encounter Summary ---
Author Organization [facility] Address [facility] [place] [address] Care Team Providers Care Field Service Coordinator Name Role Phone Red Peoples MD Primary Care Provider Lindsay lopez Encounter Details Date Type Department Care Team (Latest Contact Info) Description 04/11/2016 - 04/11/2016 11:59 PM EDT Hospital Encounter Radiology Library at [facility] [place] [address] Pedro Barreto MD [facility] [address] Pain Discharge Disposition: Home Social History Tobacco [...] MR Head (04/11/2016 12:00 AM EDT) Narrative [facility] - 05/30/2016 8:58 AM EDT This exam is for storage only and is auto-finalizing. Pedro Barreto MD G FILM LIBRARY ORD ERABLES [place], [place] documented in this encounter Visit Diagnoses Diagnosis Pain Generalized pain documented in this encounter Care Teams Field Service Coordinator Relationship Specialty Start Date End Date Red Peoples [place] PCP - General 10/18/10 04/11/16 documented as of this encounter
--- OUTSIDE RECORDS SUMMARY | 2024-10-02 19:30 | XMS_ITS | Encounter Summary ---
Author Organization [facility] Address [facility] [place] [address] Care Team Providers Care Surgical Processor Name Role Phone Ozzie Davis Primary Care Provider Encounter Details Date Type Department Care Team (Late st Contact Info) Description 06/14/2016 External Results [place] [phone] Perdo Barreto MD [facility] [place] [address] Social History Tobacco Use Types Packs/Day Years [...] filedocumented in this encounter Care Teams Surgical Processor Relationship Specialty Start Date End Date Ozzie Davis PA [address] [place] [address] PCP - General General Internal Medicine 04/12/1605/30 documented as of this encounter
--- OUTSIDE RECORDS SUMMARY | 2024-10-02 19:30 | XMS_ITS | Encounter Summary ---
Author Organization [facility] [place] [address] Care Team Providers Care Hr Business Partner Name Role Phone Yesy Nagy APRN Primary Care Provider Encounter Details Date Type Department Care Team (Late st Contact Info) Description 08/09/2022 Orders Only Rheumatology [place] [phone] Ananya Payan, [facility] [place] [address] Social History Tobacco Use Types Packs/Day Years [...] on filedocumented in this encounter Care Teams Hr Business Partner Relationship Specialty Start Date End Date Yesy Nagy APRN [address] [place] [address] PCP - General Geriatric Medicine 08/02/22 documented as of this encounter
--- OUTSIDE RECORDS SUMMARY | 2024-10-02 19:30 | XMS_ITS | Encounter Summary ---
Author Organization [facility] [place] [address] Care Team Providers Care Submarine Cable Equipment Technician Name Role Phone Yesy Nagy APRN Primary Care Provider Encounter Details Date Type Department Care Team (Late st Contact Info) Description 08/30/2022 Refill [place] [phone] Ananya Payan DO [facility] [place] [address] Social History Tobacco Use Types Packs/Day Years [...] on filedocumented in this encounter Care Teams Submarine Cable Equipment Technician Relationship Specialty Start Date End Date Yesy Nagy APRN [address] [place] [address] PCP - General Geriatric Medicine 08/02/22 documented as of this encounter
--- OUTSIDE RECORDS SUMMARY | 2024-10-02 19:30 | XMS_ITS | Encounter Summary ---
Author Organization [place] [address] Care Team Providers Care Top Tile Decorator Name Role Phone YakovYesy MALACHI Primary Care Provider [phone] Reason for Visit * Reason Onset Date Comments Other 10/18/2022 Encounter Details Date Type Department Care Team (Late st Contact Info) Description 10/18/2022 Telephone [place] [phone] Dayna Paez RN Other Social History Tobacco [...] Payan. Yesy Yakov can be reached at [phone] Ananya Payan DO sent to Rafus, Mauna L, RN Caller: Unspecified (2 days ago, 11:28 AM) Spoke with patient - on Sunday can you request the lab results from ??[facility] office is closed will try [...] on filedocumented in this encounter Care Teams Top Tile Decorator Relationship Specialty Start Date End Date Yesy Nagy APRN [address] [place] [address] PCP - General Geriatric Medicine 08/02/22 documented as of this encounter
--- OUTSIDE RECORDS SUMMARY | 2024-10-02 19:30 | XMS_ITS | Encounter Summary ---
Author Organization [facility] Address [facility] [place] [address] Care Team Providers Care Tool Engineer Name Role Phone Yesy Nagy APRN Primary Care Provider [phone] Encounter Details Date Type Department Care Team (Late st Contact Info) Description 09/20/2022 Telephone [place] [phone] Ananya Payan DO [facility] [place] [address] Social History Tobacco Use Types Packs/Day Years [...] on filedocumented in this encounter Care Teams Tool Engineer Relationship Specialty Start Date End Date Yesy Nagy APRN [address] [place] [address] PCP - General Geriatric Medicine 08/02/22 documented as of this encounter
--- OUTSIDE RECORDS SUMMARY | 2024-10-02 19:30 | XMS_ITS | Encounter Summary ---
Author Organization [facility] Address [facility] [place] [address] Care Team Providers Care Beet Topper Name Role Phone Yakov Yesy MALACHI Primary Care Provider [phone] Reason for Visit * Reason Comments Medication Management Encounter Details Date Type Department Care Team (Late st Contact Info) Description 10/04/2022 Specialty [place] [phone] Danica Taylor [facility] Social History Tobacco Use Types Packs/Day [...] this encounter Progress Notes * Danica Taylor [facility] - 10/04/2022 7:35 AM EST Clinical Management Plan: Transfer of Care/Discharge Specialty Services Specialty Pharmacy Consultation; Danica Taylor [facility] Comprehensive Medication Management (CMM) Judson Patel Jr. [address] [facility] [address] Telephone Information: Work Phone Not on file. [...] were made at the appointment and that [facility] isproviding recommendations (summary located at top of note) for provider review and follow up. Danica Taylor RPH 10/04/22 7:35 AM documented in this encounter Plan of Treatment Not on file documented as of this encounter Goals Goal Patient Goal Type Associated Problems Recent Progress Patient-Stated? Author DH Self-Management Patient Facing Action Plan No Danica Taylor [facility] Note: [...] on filedocumented in this encounter Care Teams Beet Topper Relationship Specialty Start Date End Date Yesy Nagy APRN [facility] [place] [address] PCP - General Geriatric Medicine 08/02/22 documented as of this encounter
--- OUTSIDE RECORDS SUMMARY | 2024-10-02 19:30 | XMS_ITS | Encounter Summary ---
Author Organization [facility] [place] [address] Care Team Providers Care Mold Unloader Name Role Phone Yesy Nagy APRN Primary Care Provider [phone] Reason for Referral * Consultation (Routine) - [...] to neurology for further evaluation. Ananya Payan, [facility] [place] [address] [facility] [address] [place] [address] Referral ID Status Reason Start Date Expiration Date V isits Requested Visits Authorized [id number] Closed Consult, Test & Treat 08/25/2022 08/25/2023 1 1 Encounter Details Date Type Department Care Team (Late st Contact Info) Description 08/25/2022 Telephone [place] [phone] Ananya Payan [facility] [place] [address] Social History Tobacco Use Types Packs/Day Years [...] -Order MRI MRA of brain- sent to [facility] -Continue prednisone 60 mg daily until 08/30/2022 [...] systems documented in this encounter Care Teams Mold Unloader Relationship Specialty Start Date End Date Yesy Nagy APRN [address] [place] [address] PCP - General Geriatric Medicine 08/02/22 documented as of this encounter
--- OUTSIDE RECORDS SUMMARY | 2024-10-02 19:30 | XMS_ITS | Encounter Summary ---
Author Organization [facility] Address [facility] [place] [address] Care Team Providers Care Vault Installer Name Role Phone Yesy Nagy APRN Primary Care Provider Encounter Details Date Type Department Care Team (Late st Contact Info) Description 10/18/2022 Telephone [place] [phone] Ananya Payan DO [facility] [place] [address] Social History Tobacco Use Types Packs/Day Years [...] pain. Ananya Payan DO Rheumatology Fellow Pager: [phone] documented in this encounter Plan of Treatment Not on file documented as of this encounter Goals Goal Patient Goal Type Associated Problems Recent Progress Patient-Stated? Author DH Self-Management Patient Facing Action Plan No Danica Taylor, [facility] Note: Judson Nagel Jorge Cisse. Is hoping to decrease his prednisone dosage and keep pain levels at a minimum. He is hoping that Actemra will be able to keep him walking since before prednisone he had a hard time standing up and walking around. documented as of this encounter Visit Diagnoses Not on filedocumented in this encounter Care Teams Vault Installer Relationship Specialty Start Date End Date Yesy Nagy APRN [address] [place] [place] [address] PCP - General Geriatric Medicine 08/02/22 documented as of this encounter
--- OUTSIDE RECORDS SUMMARY | 2024-10-02 19:30 | XMS_ITS | Encounter Summary ---
Author Organization [facility] Address [facility] [place] [address] Care Team Providers Care Segmental Wall Installer Name Role Phone Unknown Primary Care Provider Unavailabl e Encounter Details Date Type Department Care Team (Late st Contact Info) Description 07/17/2022 [place] [phone] Brittni Hamilton Social History Tobacco Use Types [...] on filedocumented in this encounter Care Teams Segmental Wall Installer Relationship Specialty Start Date End Date Unknown None PCP - General 05/31/21 08/01/22 documented as of this encounter
--- OUTSIDE RECORDS SUMMARY | 2024-10-02 19:30 | XMS_ITS | Encounter Summary ---
Author Organization [facility] [place] [address] Care Team Providers Care Oyster Buyer Name Role Phone Ozzie Davis Primary Care Provider [phone] Reason for Referral * Consultation (Routine) - Closed Specialty Diagnoses / Procedures Referred By Contac t Referred To Contact Rheumatology Diagnoses Numbness Beau Cassidy MD [facility] [place] [address] [facility] [address] [place] [address] Referral ID Status Reason Start Date Expiration Date V isits Requested Visits Authorized [id number] Closed Consult, Test & Treat 06/14/2016 06/14/2017 1 1 Encounter Details Date Type Department Care Team (Late st Contact Info) Description 06/14/2016 [place] [phone] Beau Cassidy MD [facility] [place] [address] Numbness Social History Tobacco Use Types Packs/Day [...] documented in this encounter Care Teams Oyster Buyer Relationship Specialty Start Date End Date Ozzie Davis PA [address] [place] [address] PCP - General General Internal Medicine 04/12/1605/30 documented as of this encounter
--- OUTSIDE RECORDS SUMMARY | 2024-10-02 19:30 | XMS_ITS | Encounter Summary ---
Author Organization [facility] [place] [address] Care Team Providers Care News Technical Director Name Role Phone Yesy Nagy APRN Primary Care Provider Encounter Details Date Type Department Care Team (Late st Contact Info) Description 11/21/2022 Telephone [place] [address] Landy Monson RN Social History [...] -We will send labs ESR CRP to [facility]. Patient advised if he is unable [...] on filedocumented in this encounter Care Teams News Technical Director Relationship Specialty Start Date End Date Yesy Nagy APRN [address] [place] [address] PCP - General Geriatric Medicine 08/02/22 documented as of this encounter
--- OUTSIDE RECORDS SUMMARY | 2024-10-02 19:30 | XMS_ITS | Encounter Summary ---
Author Organization [facility] Address [facility] [place] [address] Care Team Providers Care Manager Of Marketing Name Role Phone Ozzie Davis Primary Care Provider [phone] Reason for Visit * Reason Comments Referral * Consultation (Routine) - Closed Specialty Diagnoses / Procedures Referred By Socrates pleitez Referred To Contact Rheumatology Diagnoses Numbness Beau Cassidy MD [facility] [place] [address] [facility] [address] [place] [address] Referral ID Status Reason Start Date Expiration Date V isits Requested Visits Authorized [id number] Closed Consult, Test & Treat 06/14/2016 06/14/2017 1 1 Encounter Details Date Type Department Care Team (Late st Contact Info) Description 06/21/2016 1:00 PM EDT Office [place] [address] Vianney Can MD [facility] 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 240 Limitations: The eAG calculation has not been validated on women, individuals below 18 years old and above 70 years old, and individuals with hemoglobinopathies. Additional resources are available on the ADA website: [email or web address] Alejandro BRAGA, Dayana J, Jelly R, et al. ??Translating the A1C assay into estimated average glucose values. ??Diabetes Care 2008:31(8):4905-9672. Blood specimen (specimen) 06/21/2016 2:49 PM EDT 06/21/2016 3:02 PM EDT Narrative Resulting Agency Comment Spec In Lab Vianney Can MD CHEMISTRY ORDERABLES [facility] [place] [address] documented in this encounter Visit Diagnoses Diagnosis Peripheral polyneuropathy Unspecified hereditary and idiopathic peripheral neuropathy IFG (impaired fasting glucose) Impaired fasting glucose documented in this encounter Care Teams Manager Of Marketing Relationship Specialty Start Date End Date Ozzie Davis PA [address] [place] [address] PCP - General General Internal Medicine 04/12/1605/30 documented as of this encounter
--- OUTSIDE RECORDS SUMMARY | 2024-10-02 19:30 | XMS_ITS | Encounter Summary ---
[place] [address] Care Team Providers Care Gasoline Engine Assembler Name Role Phone Yesy Nagy APRN Primary Care Provider [phone] Reason for Referral * Consultation (Routine) - Closed Specialty Diagnoses / Procedures Referred By Contac t Referred To Contact Rheumatology Diagnoses GCA (giant cell arteritis) Yesy Nagy APRN [address] [place] [address] [facility] [address] [place] [phone] Referral ID Status Reason Start Date Expiration Date V isits Requested Visits Authorized [id number] Closed Consult, Test & Treat 08/02/2022 08/02/2023 6 6 Encounter Details Date Type Department Care Team (Latest Contact Info) Description 08/02/2022 Transcribe Orders eDH Incoming Referrals [phone] Yesy Nagy APRN [address] [place], [place] [address] GCA (giant cell arteritis) Social History Tobacco [...] arteritis documented in this encounter Care Teams Gasoline Engine Assembler Relationship Specialty Start Date End Date Yesy Nagy APRN [address] [place] [address] PCP - General Geriatric Medicine 08/02/22 documented as of this encounter
[2024-10-02 19:47] LABS: Lactate 1.3 mmol/L (0.6-1.4)
[2024-10-02 19:48] LABS: Abs Immature Grans 0.21 10^3/uL (0.0-0.06); Absolute Basophil Count 0.02 10^3/uL (0.0-0.2); Absolute Eosinophil Count 0.08 10^3/uL (0.0-0.7); Absolute Neutrophil Count 16.84 10^3/uL (1.2-6.7); Basophils % 0.1 %; Eosinophils % 0.4 %; HCT 38.5 % (40.0-50.0); HGB 12.9 g/dL (13.5-17.5); Lymphocytes % 10.5 %; MCH 31.1 pg (27.0-33.0); MCHC 33.5 % (32.0-36.0); MCV 93 fL (80-95); MPV 9.5 fL (8.0-11.0); Monocytes % 4.9 %; Neutrophils % 83.1 %; Platelet Count 214 10^3/uL (130-400); RBC 4.15 10^6/uL (4.36-5.78); RDW 12.9 % (11.8-14.1); WBC 20.27 10^3/uL (4.4-10.8)
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
[2024-10-02 19:51] LABS: Absolute Lymphocyte Count 2.13 10^3/uL (1.2-3.4); Absolute Monocyte Count 0.99 10^3/uL (0.1-0.8)
[2024-10-02 20:09] LABS: ALT 19 U/L (16-63); AST 9 U/L (15-37); Albumin 2.7 g/dL (3.4-5.0); Alkaline Phosphatase 66 U/L (46-116); Anion Gap 9.9 mmol/L (3-11); BUN 22 mg/dL (7-18); Bilirubin, Total 0.57 mg/dL (0.2-1.0); CO2 28.1 mmol/L (21.0-32.0); CREATININE 1.8 mg/dL (0.70-1.30); Calcium 8.6 mg/dL (8.5-10.1); Chloride 100 mmol/L (98-107); Estimated GFR 38.77 (mL/min/1.73m2); Glucose 249 mg/dL (74-106); Potassium 4.1 mmol/L (3.5-5.1); Sodium 138 mmol/L (136-145); Total Protein 6.7 g/dL (6.4-8.2); Troponin I 16 ng/L (<or=76)
[2024-10-02] MEDS: Normal Saline - Diluent 50 ML VIAL IJ (20:30)
[2024-10-02] MEDS: Omnipaque 350 MG/ML 100 ML BTL IJ (20:31)
[2024-10-02 21:09] LABS: Troponin I 17 ng/L (<or=76)
--- NOTE | 2024-10-02 21:37 | DI.VRAD_ITS ---
PROCEDURE INFORMATION: Exam: XR Chest Exam date and time: 10/02/2024 8:19 PM Age: 73 years old Clinical indication: Cough and shortness of breath; Additional info: Cough, SOB TECHNIQUE: Imaging protocol: Radiologic exam of the chest. Views: 2 views. COMPARISON: CT CHEST PE CTA 09/30/2024 9:37 AM FINDINGS: Lungs: Lungs are adequately inflated symmetric. No focal consolidation or evidence of pulmonary edema. Mild bibasilar atelectasis. Pleural spaces: No visible pleural effusion. No pneumothorax. Heart/Mediastinum: Cardiomediastinal contours are at the upper limits of normal for size. Vasculature: Vascular calcifications of the aortic arch are present. Bones/joints: Multilevel degenerative changes of the thoracic spine. No acute osseous finding. IMPRESSION: No acute findings. Dictated and Authenticated by: Rajan Clemons MD. Ordering:SHANIQUE Wilcox MD
--- NOTE | 2024-10-02 21:51 | DI.VRAD_ITS ---
PROCEDURE INFORMATION: Exam: CTA Head Without And With Contrast, Arteriography Exam date and time: 10/02/2024 8:28 PM Age: 73 years old Clinical indication: Dizziness and giddiness; Additional info: Dizziness, poor balance TECHNIQUE: Imaging protocol: Computed tomographic angiography of the head without and with contrast. Exam focused on the arteries. 3D rendering (Not supervised by radiologist): MIP and/or 3D reconstructed images were created by the technologist. Contrast material: OMNI 350; Contrast volume: 70 ml; Contrast route: INTRAVENOUS (IV); COMPARISON: CT HEAD WO 08/29/2024 2:24 PM FINDINGS: ANTERIOR CIRCULATION: Right internal carotid artery: Intracranial segment is patent with no significant stenosis or occlusion. No aneurysm. Right middle cerebral artery: No occlusion or significant stenosis. No aneurysm. Right anterior cerebral artery: No occlusion or significant stenosis. No aneurysm. Left internal carotid artery: Intracranial segment is patent with no significant stenosis. No aneurysm. Left middle cerebral artery: No occlusion or significant stenosis. No aneurysm. Left anterior cerebral artery: No occlusion or significant stenosis. No aneurysm. POSTERIOR CIRCULATION: Right vertebral artery: No occlusion or significant stenosis. No aneurysm. Left vertebral artery: No occlusion or significant stenosis. No aneurysm. Basilar artery: No occlusion or significant stenosis. No aneurysm. Right posterior cerebral artery: No occlusion or significant stenosis. No aneurysm. Left posterior cerebral artery: No occlusion or significant stenosis. No aneurysm. HEAD: Brain: Significant generalized cerebral atrophy. Diffuse white matter hypoattenuation compatible with chronic microvascular ischemic changes. Cerebral ventricles: Moderate ventriculomegaly which appears in proportion to the degree of cerebral atrophy. Ventricles appear clear. Bones: Unremarkable. No acute fracture. Paranasal sinuses: Visualized sinuses are normal. No fluid levels. Mastoid air cells: Visualized mastoids are normal. No mastoid effusion. Soft tissues: Unremarkable. IMPRESSION: No large vessel intracranial stenosis or occlusion. Significant generalized cerebral atrophy. PROCEDURE INFORMATION: Exam: CTA Neck Without And With Contrast Exam date and time: 10/02/2024 8:28 PM Age: 73 years old Clinical indication: Dizziness and giddiness; Additional info: Dizziness, poor balance TECHNIQUE: Imaging protocol: Computed tomographic angiography of the neck without and with contrast. Exam focused on the cervical segments of the vasculature. 3D rendering (Not supervised by radiologist): MIP and/or 3D reconstructed images were created by the technologist. Contrast material: OMNI 350; Contrast volume: 70 ml; Contrast route: INTRAVENOUS (IV); COMPARISON: CT CHEST PE CTA 09/30/2024 9:37 AM FINDINGS: Right common carotid artery: No stenosis. No dissection or occlusion. Right internal carotid artery: Atherosclerotic calcification produces less than 40% stenosis of the origin of the right ICA. Right external carotid artery: No occlusion or stenosis of the origin. Left common carotid artery: No stenosis. No dissection or occlusion. Left internal carotid artery: Dense atherosclerotic calcification produces approximately 55% stenosis of the origin of the left ICA. Mild stenosis in the distal left ICA. Left external carotid artery: No occlusion or stenosis of the origin. Right vertebral artery: Mild stenosis of the origin. No dissection or occlusion. Left vertebral artery: Mild stenosis of the origin. No dissection or occlusion. Soft tissues: Normal. No significant soft tissue swelling. Bones/joints: Overall moderate multilevel degenerative disc changes throughout the cervical spine. No acute fracture. IMPRESSION: 1. Bilateral ICA stenosis, moderate on the left and mild on the right 2. Mild stenosis in the left CCA 3. Patent bilateral vertebral arteries 4. Significant multilevel degenerative changes throughout the cervical spine. REFERENCES: NASCET CRITERIA. The degree of stenosis in the cervical segment of the internal carotid artery is based on NASCET criteria. Normal is no stenosis. Mild is less than 50% stenosis. Moderate is 50-69% stenosis. Severe is 70% to 99% stenosis. Total occlusion is no detectable patent lumen. Dictated and Authenticated by: Valerio Hartmann MD. Ordering:SHANIQUE Wilcox MD
[2024-10-02 23:54] LABS: Bilirubin Negative (Negative); Blood Negative (Negative); Clarity Clear (Clear); Glucose >=1000 mg/dL (Negative); Ketones Negative (Negative); Leukocyte Esterase Negative (Negative); Nitrite Negative (Negative); Specific Gravity 1.015 (1.005-1.025)
[2024-10-03] VITALS (10 sets, daily range): BP systolic 123–138; BP diastolic 50–76; PULSE 68–82; RESP 16–22; TEMP 36.9; O2SAT 93–96
[2024-10-03 00:01] LABS: Bacteria Few HPF (Negative); C & S Indicated? No; Casts Negative LPF (Negative); Crystals Negative HPF (Negative); Epithelial Cells Negative HPF (Negative); Mucus Negative (Negative); RBC Negative HPF (0-2); WBC 0-2 HPF (0-5)
--- NOTE | 2024-10-03 06:50 | W.PCEDHO ---
Registration Status: Primary Language: Preferred Language: ED Information & Data Chief Complaint SOB 10/02/24 19:54 Triage Note PT reports slow increase in 10/02/24 19:14 SoB and Dizziness over the past week. Covid + 09/27. PT denies N/V/D. Hacking productive cough (yellowish sputum). Medical / Surgical History (Last Reviewed 09/30/24 @ 09:36 by Harrison Wilkins DO) Abnormal gait (~06/2022) Anemia (~08/2022) Anemia in CKD (chronic kidney disease) Anxiety (05/07/18) Benign prostatic hyperplasia (05/13/18) Candidal paronychia Cataracts, both eyes Diverticulosis (~08/2023) Edema of lower extremity (05/07/18) Elevated lipoprotein A level (~12/2021) Elevated serum creatinine Family history of prostate cancer in father Fracture of distal end of left radius (10/26/22) Hepatomegaly (05/07/18) History of alcohol abuse (05/07/18) Hyperlipidemia (~07/2021) Hypertension (05/07/18) Immunization refused (~02/2022) Immunosuppressed status Impaired fasting glucose (05/07/18) Left scapholunate ligament tear Lightheadedness Nail dystrophy On prednisone therapy (~04/2022) Onychomycosis Peripheral neuropathy (05/07/18) PMR (polymyalgia rheumatica) (~04/2022) Seborrheic dermatitis of scalp Tachycardia (Last Reviewed 09/30/24 @ 09:36 by Harrison Wilkins DO) Appendectomy Tonsillectomy Most Recent Vital Signs Temperature 36.9 C 10/03/24 04:54 Temperature Source Temporal Artery Scan 10/03/24 04:54 Pulse 78 10/03/24 04:54 Pulse 99 H 10/02/24 20:01 Respiratory Rate 22 10/03/24 04:54 Respiratory Effort Normal, Non-Labored 10/03/24 04:50 Respiratory Depth Normal 10/03/24 04:50 Respiratory Pattern Normal 10/03/24 04:50 Blood Pressure 134/76 10/03/24 04:54 Blood Pressure Mean 105 10/02/24 20:01 Blood Pressure Position Sitting 10/02/24 19:19 Pulse Oximetry 94 10/03/24 04:54 Oxygen Delivery Method Room Air 10/03/24 04:54 Oxygen Flow Rate 0 10/03/24 04:54 Pain Level 0 10/03/24 04:54 Allergies amoxicillin (From Augmentin) Adverse Reaction (Intermediate, Verified 10/02/24 19:20) vomiting, GI Upset atenolol Adverse Reaction (Intermediate, Verified 10/02/24 19:20) off balance, dizzy clavulanic acid (From Augmentin) Adverse Reaction (Intermediate, Verified 10/02/24 19:20) vomiting, GI Upset Active Medications Generic Name Dose Route Start Last Admin Trade Name Mayelin PRN Reason Stop Dose Admin Iohexol 100 ml 10/02/24 20:45 10/02/24 20:31 Omnipaque 350 Mg/Ml 100 Ml Btl IJ 11/01/24 23:59 70 ml DIRECTED SHARATH Administration Sodium Chloride 50 ml 10/02/24 20:30 10/02/24 20:30 Normal Saline - Diluent 50 Ml Vial IJ 50 ml .FOR DI USE SHARATH Administration Diagnostics 10/02/24 10/02/24 10/02/24 Range/Units 23:34 22:25 20:44 WBC (4.4-10.8) 10^3/uL RBC (4.36-5.78) 10^6/uL Hgb (13.5-17.5) g/dL Hct (40.0-50.0) % MCV (80-95) fL MCH (27.0-33.0) pg MCHC (32.0-36.0) % RDW (11.8-14.1) % Plt Count (130-400) 10^3/uL MPV (8.0-11.0) fL Immature Gran % % Neutrophils % % Lymphocytes % % Monocytes % % Eosinophils % % Basophils % % Nucleated RBC % (0.0-0.3) % Absolute Neutrophils (1.2-6.7) 10^3/uL Absolute Lymphocytes (1.2-3.4) 10^3/uL Absolute Monocytes (0.1-0.8) 10^3/uL Absolute Eosinophils (0.0-0.7) 10^3/uL Absolute Basophils (0.0-0.2) 10^3/uL VBG Lactate (0.6-1.4) mmol/L Sodium (136-145) mmol/L Potassium (3.5-5.1) mmol/L Chloride (98-107) mmol/L Carbon Dioxide (21.0-32.0) mmol/L Anion Gap (3-11) mmol/L BUN (7-18) mg/dL Creatinine (0.70-1.30) mg/dL Est GFR (CKD-EPI 2020) (mL/min/1.73m2) Glucose (74-106) mg/dL Calcium (8.5-10.1) mg/dL Magnesium (1.8-2.4) mg/dL Total Bilirubin (0.2-1.0) mg/dL AST (15-37) U/L ALT (16-63) U/L Alkaline Phosphatase (46-116) U/L Troponin I Cancelled 17 (<or=76) ng/L Total Protein (6.4-8.2) g/dL Albumin (3.4-5.0) g/dL Urine Color Yellow (Yellow) Urine Clarity Clear (Clear) Urine pH 6.0 (5-8) Ur Specific [place] 1.015 (1.005-1.025) Urine Protein Negative (Neg-Trace) mg/dL Urine Ketones Negative (Negative) mg/dL Urine Blood Negative (Negative) Urine Nitrite Negative (Negative) Urine Bilirubin Negative (Negative) Urine Urobilinogen 1.0 H (Up to 0.2) mg/dL Ur Leukocyte Esterase Negative (Negative) Urine RBC Negative (0-2) HPF Urine WBC 0-2 (0-5) HPF Ur Epithelial Cells Negative (Negative) HPF Urine Crystals Negative (Negative) HPF Urine Bacteria Few (Negative) HPF Urine Casts Negative (Negative) LPF Urine Mucus Negative (Negative) Ur Culture Indicated? No Urine Glucose >=1000 H (Negative) mg/dL COVID-19 Source SARS-CoV-2 (PCR) Influenza Type A (PCR) Influenza Type B (PCR) RSV (PCR) 10/02/24 10/02/24 Range/Units 19:40 19:24 WBC 20.27 H (4.4-10.8) 10^3/uL RBC 4.15 L (4.36-5.78) 10^6/uL Hgb 12.9 L (13.5-17.5) g/dL Hct 38.5 L (40.0-50.0) % MCV 93 (80-95) fL MCH 31.1 (27.0-33.0) pg MCHC 33.5 (32.0-36.0) % RDW 12.9 (11.8-14.1) % Plt Count 214 (130-400) 10^3/uL MPV 9.5 (8.0-11.0) fL Immature Gran % 1.0 % Neutrophils % 83.1 % Lymphocytes % 10.5 % Monocytes % 4.9 % Eosinophils % 0.4 % Basophils % 0.1 % Nucleated RBC % 0.0 (0.0-0.3) % Absolute Neutrophils 16.84 H (1.2-6.7) 10^3/uL Absolute Lymphocytes 2.13 (1.2-3.4) 10^3/uL Absolute Monocytes 0.99 H (0.1-0.8) 10^3/uL Absolute Eosinophils 0.08 (0.0-0.7) 10^3/uL Absolute Basophils 0.02 (0.0-0.2) 10^3/uL VBG Lactate 1.3 (0.6-1.4) mmol/L Sodium 138 (136-145) mmol/L Potassium 4.1 (3.5-5.1) mmol/L Chloride 100 (98-107) mmol/L Carbon Dioxide 28.1 (21.0-32.0) mmol/L Anion Gap 9.9 (3-11) mmol/L BUN 22 H (7-18) mg/dL Creatinine 1.8 H (0.70-1.30) mg/dL Est GFR (CKD-EPI 2020) 38.77 (mL/min/1.73m2) Glucose 249 H (74-106) mg/dL Calcium 8.6 (8.5-10.1) mg/dL Magnesium 2.0 (1.8-2.4) mg/dL Total Bilirubin 0.57 (0.2-1.0) mg/dL AST 9 L (15-37) U/L ALT 19 (16-63) U/L Alkaline Phosphatase 66 (46-116) U/L Troponin I 16 (<or=76) ng/L Total Protein 6.7 (6.4-8.2) g/dL Albumin 2.7 L (3.4-5.0) g/dL Urine Color (Yellow) Urine Clarity (Clear) Urine pH (5-8) Ur Specific [place] (1.005-1.025) Urine Protein (Neg-Trace) mg/dL Urine Ketones (Negative) mg/dL Urine Blood (Negative) Urine Nitrite (Negative) Urine Bilirubin (Negative) Urine Urobilinogen (Up to 0.2) mg/dL Ur Leukocyte Esterase (Negative) Urine RBC (0-2) HPF Urine WBC (0-5) HPF Ur Epithelial Cells (Negative) HPF Urine Crystals (Negative) HPF Urine Bacteria (Negative) HPF Urine Casts (Negative) LPF Urine Mucus (Negative) Ur Culture Indicated? Urine Glucose (Negative) mg/dL COVID-19 Source Cancelled SARS-CoV-2 (PCR) Cancelled Influenza Type A (PCR) Cancelled Influenza Type B (PCR) Cancelled RSV (PCR) Cancelled Intake and Output - 24 Hour Total 10/02/24 19:05 thru 10/02/24 19:14 Weight 74.843 kg Falls Risk Assessment History of Falls No History 10/02/24 19:19 Contributing Factors No Factors 10/02/24 19:19 Ambulatory Aids Independent 10/02/24 19:19 Tubes/Lines None 10/02/24 19:19 Gait Evaluation No gait disturbance 10/02/24 19:19 Cognition No cognitive impairment 10/02/24 19:19 Fall Total Score 0 10/02/24 19:19 Level of Risk Standard/Low Risk 10/02/24 19:19 v v v v v v v v v Sending and/or Receiving Nurses: Please use comment section below to note any information pertinent to the patient hand-off not included above. Information / Comments: Report received from: Chey Sullivan, BREANNE @ 0640 10/03/24
--- NOTE | 2024-10-03 09:30 | IN_ITS ---
PT Notes Visit Reasons: [place] / Covid and SOB Physical Therapy Inpatient Initial Evaluation Date: 10/03/2024 Referring Doctor: Vladimir Lucas MD PT Orders: PT CONSULT: Eval for Assistive Device Precautions: Fall. Standard. Activity as tolerated. Airborne precautions for COVID-19 infection. Patient Profile/Admitting Diagnosis: Judson is a 73-year-old male with past medical history significant for giant cell arterirtis, history of steroid-induced DM, and COVID-19 infection back in August of 2023 who presented to the ED on 10/02/2024 due to worsening shortness of breath with week-long cough, generalized weakness, and difficulty walking. PMHX: All Active Problems (Updated 09/30/24 @ 11:54 by Harrison Wilkins DO) Acute dyspnea (Acute) COVID-19 (Acute ~08/2023) 08/2024 GCA (giant cell arteritis) (Chronic ~11/2022) [facility] Endo--RX Actremra 01/2023; discontinued in favor of daily prednisone 7.5mg daily; switched to methotrexate 06/2024 Steroid-induced diabetes (Chronic ~09/2022) Medical History History of alcohol abuse (05/07/18) Nail dystrophy Onychomycosis Immunosuppressed status LT prednisone for GCA On prednisone therapy (~04/2022) Abnormal gait (~06/2022) Peripheral neuropathy + vestibular ([facility] Neuro 01/2023) Elevated lipoprotein A level (~12/2021) Declines statin Hyperlipidemia (~07/2021) Recommend statin 07/2021; [employer] Read obtained lipoprotein a, elevated--> cardiology recommends consider statin 01/2022 Family history of prostate cancer in father Also PGFBenign prostatic hyperplasia (05/13/18) RX Flomax Hypertension (05/07/18) Goal 135-145 (lower & he feels poor)--didn't tolerate LisinoprilPeripheral neuropathy (05/07/18) EtOH related; [facility] Neuro 2017 & 2022 Diverticulosis (~08/2023) Cataracts, both eyes [place] 07/24/24 not visually significant Anemia in CKD (chronic kidney disease) Anemia (~08/2022) Lightheadedness PMR (polymyalgia rheumatica) (~04/2022) Impaired fasting glucose (05/07/18) Monitor annual A1Cs; +fam hx [id number] paronychia Elevated serum creatinine Left scapholunate ligament tear Fracture of distal end of left radius (10/26/22) Immunization refused (~02/2022) Tachycardia case monitor stable--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 Seborrheic dermatitis of scalp Edema of lower extremity (05/07/18) Occurred x1, RX Furosemide and never reoccurred even off FurosemideAnxiety (05/07/18) Hepatomegaly (05/07/18) Resolved off EtOH Surgical History Tonsillectomy Appendectomy Social History/Home Situation: Currently lives in a homeless long term here in town. Independent with all aspects radials prior to surgery. Equipment Owned/DME: None Subjective: Anxious about going home as he stated that even though he has his own room, he shares the bathroom with other dwellers and he does not want to make them sick. [place] lightheaded when he sat up but was agreeable to doing mobility assessment. 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 Objective: General Observation: Supine in bed. No lines attached. Mental Status: Alert and oriented as to person, place, time, and purpose. Able to pay attention, focus, and respond appropriately. Pain: Denies Vital Signs: Closely monitored by nursing staff ROM: Right Upper Extremity: Shoulder Flexion WFL. Shoulder abduction WFL. Elbow flexion WFL. Wrist flexion WFL. Functional opening and closing of hand WFL. Left Upper Extremity: Shoulder Flexion WFL. Shoulder abduction WFL. Elbow flexion WFL. Wrist flexion WFL. Functional opening and closing of hand WFL. Right Lower Extremity: Hip flexion WFL. Hip abduction WFL. Knee flexion WFL. Ankle dorsiflexion WFL. Ankle plantarflexion WFL. Left Lower Extremity: Hip flexion WFL. Hip abduction WFL. Knee flexion WFL. Ankle dorsiflexion WFL. Ankle plantarflexion WFL. Strength: Right Upper Extremity: Shoulder flexors 4-/5. Shoulder abductors 4-/5. Elbow flexors 4/5. Elbow extensors 4/5. Video Presentation Operator strong. Left Upper Extremity: Shoulder flexors 4-/5. Shoulder abductors 4-/5. Elbow flexors 4/5. Elbow extensors 4/5. Video Presentation Operator strong. Right Lower Extremity: Hip flexors 4-/5. Hip abductors 4-/5. Knee flexors 4/5. Knee extensors 4-/5. Ankle dorsiflexors 4-/5. Ankle plantarflexors 4-/5. Left Lower Extremity: Hip flexors 4-/5. Hip abductors 4-/5. Knee flexors 4/5. Knee extensors 4-/5. Ankle dorsiflexors 4-/5. Ankle plantarflexors 4-/5. Bed Mobility/Transfers: Minimal cueing provided for use of B hands as needed for support, movement sequence, AD management, and posture to reduce fall risk and minimize pain report Supine to sit stand by assist Sit to supine stand by assist Sit to stand with stand by assist with FWW Stand to sit with stand by assist with FWW Gait: Instructed patient with level surface ambulation of about 30 feet using FWW requiring stand by assist with cues provided for slow directional change. Chelsie decreased. Step height decreased. Step length decreased. MInimal shortness of breath only which resolved with rest. Balance: Static Sitting: Normal Dynamic Sitting: Normal Static Standing: Fair Dynamic Standing: Fair Special Tests: Mobility Limitations Standardized Measure [facility] 6 clicks Basic Mobility Inpatient Short Form: Raw Score: 22 CMS Score: 21% deficit 4-Stage Balance Test: Feet together 10 seconds Semi-tandem <10 seconds Full tandem <10 seconds One-legged stance <10 seconds Informed Consent/Education: Patient was instructed in purpose of PT consult. Agreeable to proceed with established PT POC to achieve personal goals. ASSESSMENT: Patient was able to safely navigate level surface for up to 30 feet using front- wheeled walker with stand by assist. Needed moderate cueing to slow down during directional change to allow for better weight distribution and minimize LOB. Patient presents with clinical signs and symptoms consistent with current/admitting diagnoses that have resulted to mobility limitations, gait instability, generalized weakness, and overall ADL decline as demonstrated by the following impairment level findings: 1. Decreased strength to B UE/LE major muscle groups 2. Impaired sitting/standing balance 3. Impaired activity tolerance 4. Shortness of breath Impairments are contributing to the following functional limitations: 1. Decline in bed mobility skills 2. Decline in transfer skills 3. Difficulty with ambulation without assistive device 4. Increased completion time for mobility ADL performance 5. Increased risk for falls 6. Difficulty with managing steps alone safely Patient is assessed as a 66865 low complexity based on the following: History: 73-year-old male with past medical history as indicated above Examination: Demonstrable impairment in strength, balance, and mobility level wi th underlying impairments and functional limitations as exhibited above Presentation: Evolving Decision Makin low complexity complexity Goals: N/A. PT evaluation only and functional mobility training with use of FWW Plan of Care/Treatment Plan: N/A. PT evaluation only and functional mobility training with use of FWW. DISCHARGE RECOMMENDATIONS: [] Home with no services [] [X] Home with services. Patient will benefit from home health PT services in order to progress mobility level using least restrictive assistive ambulatory device, assess home safety, identify additional equipment needs, and establish a functional maintenance program that will increase ability of patient to remain at home. [] Home with outpatient PT [] [] SNF for continued rehabilitation [] [] Four Slide Machine Operator Care [] [] SNF versus LTC based on ability to participate and progress [] [X] Patient will require FWW for home to maximize independence and reduce fall risk TREATMENT CODE/TIME: 64230 x 25 minutes for 1 unit, 25192 x 17 minutes for 1 unit ((8:48-9:30). Thank you for the opportunity to participate in the care of this patient. Mariaelena Cobos PT, DPT, CLT [facility] [place], [place]
--- NOTE | 2024-10-03 09:34 | W.EDPROG ---
Date of service: 10/03/24 Time of Service: 09:34 Medical Decision Making Care was signed out by Dr. Zamora, please see his documentation and prior physician documentation regarding initial ED presentation course. Plan at signout was to follow-up on PT recommendations. Patient was seen by physical therapy who recommended walker. Walker was provided. Patient does have hyperglycemia and is not compliant with medications. Patient was recently seen by primary care physician and started on new diabetic med which she is yet to nut picker from the pharmacy. Plan for discharge with outpatient follow-up with PCP and neurology for worsening ataxia. Patient was encouraged to take his medications as prescribed. I attempted to contact the patient's primary care physician. Pedro Staffordod was not available today but I did speak with nurse at [facility] internal medicine who will help arrange timely follow-up. Lab Data Lab results reviewed: Yes I reviewed the patient's lab results. Quality:SDOH Health Related Social Needs: Health related social needs housing instability, housed, with risk of homelessness(Z59.811), material hardship(utilities)(Z59.87), food insecurity(Z59.41), transportation insecurity(Z59.82) Health related social needs details [facility] Sign Out Sign Out Data: Sign Out Comment: 73-year-old male patient, history of GCA still on a steroid taper, COVID-19 at the end of August, still positive on visit 2 days ago, presenting from jail with shortness of breath. Workup has been reassuring with no sign of pneumonia, but patient was severely off balance and had difficulty walking, states this has been the case for at least a week. CTA head and neck without stroke, NPH, etc. Has shrapnel in jaw so MRI is not an option. Boarding in ED overnight (per house sup) awaiting PT eval in the morning [ ] PT order or webEx [ ] Follow-up UA Last updated by Yoly Lo MD at 10/02/24 23:30 Sign Out Comment: Patient signed out pending PT eval in morning. His urinalysis overnight is negative for infection. No events overnight. Signed out pending PT eval for safety regarding discharge. Last updated by Jh Zamora MD at 10/03/24 06:39 Discharge Plan Disposition Patient Disposition: Home Condition: Stable Discharge Details Clinical Impression: Ataxia, Hyperglycemia Primary Care Provider: Yesy Nagy ED Provider: Vladimir Lucas Home Meds and New Rx's Prescriptions: Continued prednisone 5 mg tablet 5 mg PO DAILY Qty: 90 1RF amlodipine 2.5 mg tablet 2.5 mg PO HS MDD 5mg/24h Qty: 180 3RF Rx Instructions: Dose reduction 11/2023, but may increase to 5mg daily if BP not at goal <140/90 (DME) blood-glucose meter Kit See Rx Instructions .Route Qty: 1 0RF Rx Instructions: ONE TOUCH METER As directed to check blood glucose daily. No insulin. DX:E11.9 to maintain Hba1c <7% vitamin B complex [B Complex-Vitamin B12] Tablet 1 tab PO DAILY tamsulosin [Flomax] 0.4 mg capsule 0.8 mg PO DAILY Qty: 180 3RF Rx Instructions: Enlarged prostate; dose increase 03/29/2023 prednisone 2.5 mg tablet 2.5 mg PO DAILY aspirin 325 mg tablet 162.5 - 325 mg PO DAILY PRN calcium carbonate-vitamin D3 [Caltrate with Vitamin D3] 600 mg-20 mcg (800 unit) tablet 2 tab PO DAILY Qty: 180 3RF Rx Instructions: For bone health while on prednisone rosuvastatin 5 mg tablet 5 mg PO DAILY Qty: 90 3RF Rx Instructions: For cholesterol, steroid-induced diabetes (DME) blood sugar diagnostic Strip See Rx Instructions .Route Qty: 100 3RF Rx Instructions: One touch test strips to check blood glucose daily. no insulin. DX:E11.9 to maintain Hba1c <7% (DME) lancets Misc See Rx Instructions .Route Qty: 100 3RF Rx Instructions: E11.9 for daily monitoring for A1C <=7% One touch lancets methotrexate sodium 10 mg tablet 10 mg PO QWEEK folic acid 1 tab PO DAILY dapagliflozin propanediol [Farxiga] 5 mg tablet 5 mg PO QAM Qty: 30 1RF Rx Instructions: Diabetes prednisone 1 mg tablet 1 mg PO DAILY MDD 7 mg daily Qty: 60 1RF Rx Instructions: Use with your 2.5 or 5 mg tablets to make 7 mg daily Discharge Instructions Instructions: How to Use a Walker, High Blood Sugar, Adult ED Additional Instructions: Please take your medication as prescribed. Please follow-up with neurology and your primary care physician. Return to the ER immediately for any worsening or new concerning symptoms. Stand Alone Forms: Physical Therapy Referral Referrals: [facility] [Provider Group] Yesy Nagy, REIMBURSEMENT CONSULTANT [Primary Care Provider] - Aman Nieves, PT [PHYSICAL THERAPIST] -
--- NOTE | 2024-10-04 16:55 | NUR.NOTE ---
Access chart to get the diagnosis for billing paperwork for [facility]. Nursing Note:
== END 2024-10-03 09:52 | disposition home or self-care (01) ==
PROVIDERS: Emergency Medicine; Emergency Provider Student in an Organized Health Care Education/Training Program; PCP Nurse Practitioner Adult Health
DX: R73.9 Hyperglycemia, unspecified (principal); R27.0 Ataxia, unspecified; E78.5 Hyperlipidemia, unspecified; I10 Essential (primary) hypertension; M31.5 Giant cell arteritis with polymyalgia rheumatica; Z79.82 Long term (current) use of aspirin; Z59.00 Homelessness unspecified; Z79.52 Long term (current) use of systemic steroids; Z87.891 Personal history of nicotine dependence
CPT/HCPCS: 00123; 70496; 70498; 80053; 82962; 87637; 93005; 97161; 97530; 99285; 71046; 81003; 81015; 83605; 83735; 84484; 85025; 93010; 99284; J3490

== ENCOUNTER 2025-01-05 02:04 | Inpatient (IN) | payer MEDICARE, MEDICAID, SELFPAY ==
[2025-01-05] VITALS (54 sets, daily range): BP systolic 109–179; BP diastolic 42–81; PULSE 76–125; RESP 10–38; TEMP 36.5–39.4; O2SAT 89–99
--- NOTE | 2025-01-05 02:15 | DI.RAD_ITS ---
Exam(s) XR PORTABLE CHEST AP EXAM: XR PORTABLE CHEST AP CLINICAL HISTORY: cough, fever. TECHNIQUE: 2D digital imaging was performed. COMPARISON: CR,XR XR CHEST 2V PA LATERAL from 10/02/2024 FINDINGS: Single AP portable view. Heart size is upper normal. The mediastinum is not widened. Lungs are clear. No infiltrates nor obvious pleural effusions. IMPRESSION: No acute pulmonary findings on this single AP portable view of the chest. DATA REPOSITORY: RADIATION DOSE DELIVERED:
--- NOTE | 2025-01-05 02:17 | W.ED.GENAD ---
Discharge Plan Disposition Patient Disposition: Admit to [facility] Condition: Improving Discharge Details Chief Complaint: RespSymp Clinical Impression: Sepsis, Influenza A Primary Care Provider: Yesy Nagy ED Provider: Harrison Wilkins Home Meds and New Rx's Prescriptions: No Action prednisone 5 mg tablet 5 mg PO DAILY Qty: 90 1RF (DME) blood-glucose meter Kit See Rx Instructions .Route Qty: 1 0RF Rx Instructions: ONE TOUCH METER As directed to check blood glucose daily. No insulin. DX:E11.9 to maintain Hba1c <7% vitamin B complex [B Complex-Vitamin B12] Tablet 1 tab PO DAILY tamsulosin [Flomax] 0.4 mg capsule 0.8 mg PO DAILY Qty: 180 3RF Rx Instructions: Enlarged prostate; dose increase 03/29/2023 prednisone 2.5 mg tablet 2.5 mg PO DAILY aspirin 325 mg tablet 162.5 - 325 mg PO DAILY PRN calcium carbonate-vitamin D3 [Caltrate with Vitamin D3] 600 mg-20 mcg (800 unit) tablet 2 tab PO DAILY Qty: 180 3RF Rx Instructions: For bone health while on prednisone rosuvastatin 5 mg tablet 5 mg PO DAILY Qty: 90 3RF Rx Instructions: For cholesterol, steroid-induced diabetes (DME) blood sugar diagnostic Strip See Rx Instructions .Route Qty: 100 3RF Rx Instructions: One touch test strips to check blood glucose daily. no insulin. DX:E11.9 to maintain Hba1c <7% (DME) lancets Misc See Rx Instructions .Route Qty: 100 3RF Rx Instructions: E11.9 for daily monitoring for A1C <=7% One touch lancets methotrexate sodium 10 mg tablet 10 mg PO QWEEK folic acid 1 tab PO DAILY dapagliflozin propanediol [Farxiga] 5 mg tablet 5 mg PO QAM Qty: 30 1RF Rx Instructions: Diabetes amlodipine 2.5 mg tablet See Rx Instructions .ROUTE .COMPLEX Qty: 30 0RF Dose Instruction: TAKE ONE TABLET BY MOUTH AT BEDTIME , MAY INCREASE TO 5MG IF BLOOD PRESSURE NOT AT GOAL <140/90 , MAXIMUM DAILY DOSE = 5MG /24HR Rx Instructions: TAKE ONE TABLET BY MOUTH AT BEDTIME , MAY INCREASE TO 5MG IF BLOOD PRESSURE NOT AT GOAL <140/90 , MAXIMUM DAILY DOSE = 5MG /24HR prednisone 1 mg tablet 1 mg PO DAILY MDD 7 mg daily Qty: 60 1RF Rx Instructions: Use with your 2.5 or 5 mg tablets to make 7 mg daily HPI General Date/Time Provider Initiated Documentation: 01/05/25 02:05. HPI Narrative: This is a 74-year-old male with a past medical history of giant cell arteritis on chronic steroids and methotrexate, high cholesterol, BPH, peripheral neuropathy, chronic kidney disease, polymyalgia rheumatica, tonsillectomy and appendectomy, who presents today for feeling unwell via EMS. Patient states that he has felt unwell for the last 24 to 48 hours. He is not very specific in regards to his symptoms. He does admit to urinary frequency, fever and chills. He also admits to a cough with productive sputum. He denies any chest or abdominal pain. He denies any neck pain or headache. He denies any other complaints at this time. Related Data Home Medications ?Medication ?Instructions ?Recorded ?Confirmed vitamin B complex (B 1 tab PO DAILY 05/06/21 01/05/25 Complex-Vitamin B12 tablet) prednisone 5 mg tablet 5 mg PO DAILY #90 tabs 12/17/23 01/05/25 tamsulosin 0.4 mg capsule (Flomax) 0.8 mg (2 x 0.4 mg) PO DAILY #180 05/19/24 01/05/25 tab-caps blood sugar diagnostic #100 ea 06/09/24 01/05/25 lancets #100 ea 06/09/24 01/05/25 aspirin 325 mg tablet 162.5 - 325 mg PO DAILY PRN 06/26/24 01/05/25 calcium 600 mg (as 2 tab PO DAILY #180 tabs 06/26/24 01/05/25 carbonate)-vitamin D3 20 mcg (800 unit) tablet (Caltrate with Vitamin D3) prednisone 2.5 mg tablet 2.5 mg PO DAILY 06/26/24 01/05/25 rosuvastatin 5 mg tablet 5 mg PO DAILY #90 tabs 06/26/24 01/05/25 folic acid 1 tab PO DAILY 07/17/24 01/05/25 methotrexate sodium 10 mg tablet 10 mg PO QWEEK 07/17/24 01/05/25 prednisone 1 mg tablet 1 mg PO DAILY GCA #60 tabs 09/28/24 01/05/25 blood-glucose meter #1 ea 09/29/24 01/05/25 dapagliflozin propanediol 5 mg 5 mg PO QAM #30 tabs 10/01/24 01/05/25 [facility] amlodipine 2.5 mg tablet See Rx Instructions .Route 12/28/24 01/05/25 .COMPLEX #30 tabs Previous Rx's ?Medication ?Instructions ?Recorded prednisone 5 mg tablet 5 mg PO DAILY #90 tabs 12/17/23 tamsulosin 0.4 mg capsule (Flomax) 0.8 mg (2 x 0.4 mg) PO DAILY #180 05/19/24 tab-caps blood sugar diagnostic #100 ea 06/09/24 lancets #100 ea 06/09/24 calcium 600 mg (as 2 tab PO DAILY #180 tabs 06/26/24 carbonate)-vitamin D3 20 mcg (800 unit) tablet (Caltrate with Vitamin D3) rosuvastatin 5 mg tablet 5 mg PO DAILY #90 tabs 06/26/24 prednisone 1 mg tablet 1 mg PO DAILY GCA #60 tabs 09/28/24 blood-glucose meter #1 ea 09/29/24 dapagliflozin propanediol 5 mg 5 mg PO QAM #30 tabs 10/01/24 tablet (xiga) amlodipine 2.5 mg tablet See Rx Instructions .Route 12/28/24 .COMPLEX #30 tabs Allergies Allergy/AdvReac Type Severity Reaction Status Date / Time amoxicillin (From Augmentin) AdvReac Intermediate vomiting, Verified 01/05/25 03:36 GI Upset atenolol AdvReac Intermediate off Verified 01/05/25 03:36 balance, dizzy clavulanic acid (From AdvReac Intermediate vomiting, Verified 01/05/25 03:36 Augmentin) GI Upset General ASIM: 3 Exam Narrative Exam Narrative: 1.Const: Well-nourished, Well-developed, appearing stated age 2.Eyes: PERRL, no conjunctival injection, and symmetrical lids. 3.ENT: Atraumatic external nose and ears. Moist MM. Neck: Symmetric, trachea midline, No thyromegaly. No neck stiffness or tenderness. 4.CVS: +S1/S2, Peripheral pulses 2+ and equal in all extremities. Brisk capillary refill in all extremities. 5.RESP: Unlabored respiratory effort. Scattered rhonchi and rales. 6.GI: Soft, Nontender/Nondistended, No hepatosplenomegaly. No guarding or rebound. Genital exam unremarkable. No redness or drainage. 7.MSK: Normocephalic/Atraumatic, Extremities w/o deformity or ttp No cyanosis or clubbing, Normal movement of all extremities 8.Skin: Warm, Dry. No rashes or lesions. 9.Neuro: keyboard instrument tuner II-XII grossly intact. Sensation grossly intact, no focal neurologic deficits. 10.Psych: (AAO) x3. Appropriate mood and affect Medical Decision Making This is a 74-year-old male with a past medical history of giant cell arteritis on chronic steroids and methotrexate, high cholesterol, BPH, peripheral neuropathy, chronic kidney disease, polymyalgia rheumatica, tonsillectomy and appendectomy, who presents today for feeling unwell via EMS. Patient states that he has felt unwell for the last 24 to 48 hours. He is not very specific in regards to his symptoms. He does admit to urinary frequency, fever and chills. He also admits to a cough with productive sputum. He denies any chest or abdominal pain. He denies any neck pain or headache. He denies any other complaints at this time. Exam demonstrates scattered rhonchi and rales for his lungs, no genital pain or tenderness. No abdominal pain or chest discomfort. Differential includes sepsis secondary to pneumonia, UTI or viral etiology. We will rehydrate with a liter of normal saline, will check for potential infectious etiologies, due to his immunocompromise status we will start broad-spectrum antibiotics of vancomycin and Levaquin, rehydrate with a liter of normal saline, give Ofirmev for fever control,, monitor closely and reassess. 3:51 AM Laboratory workup demonstrates minimal white count at 12.8, no bandemia. Lactate is elevated at 3, electrolytes normal, urinalysis negative for infection, chest x-ray shows no acute process per radiology. Influenza A is positive. Patient has already been given broad-spectrum's, but we will add Tamiflu at this time. Heart rate is improving with fluid bolus. No indication for steroids at this time. Due to the patient's immunocompromise status, I do feel that he would benefit from inpatient admission. Discussed the case with the hospitalist Dr. Millre, he agrees with the assessment and plan. I have extensively reviewed the treatment plan with the patient. I have addressed all patient concerns at this time. I have also discussed the plan with the admitting physician and they agree with the current assessment and plan and have agreed to assume responsibility for the patient. All parties demonstrate verbal understanding and agreement with our assessment and plan at this time. The documentation in this chart was dictated using [employer] dictation software. Please excuse any dictation errors. FINDINGS: Lungs: Unremarkable. No consolidation. Pleural spaces: Unremarkable. No pleural effusion. No pneumothorax. Heart/Mediastinum: Unremarkable. No cardiomegaly. Bones/joints: Unremarkable. IMPRESSION: No acute findings. Thank you for allowing us to participate in the care of your patient. Dictated and Authenticated by: Norm Morocho MD 01/05/2025 2:46 AM Eastern Time ([place] & [place]) Quality:SDOH Health Related Social Needs: Health related social needs details living at homeless longterm [facility] All Active Problems (Updated 01/05/25 @ 03:53 by Harrison Wilkins DO) Influenza A (Acute) Sepsis (Acute) Flu (Acute) GCA (giant cell arteritis) (Chronic ~11/2022) [facility] Endo--RX Actremra 01/2023; discontinued in favor of daily prednisone 7.5mg daily; switched to methotrexate 06/2024 Steroid-induced diabetes (Chronic ~09/2022) Medical History History of alcohol abuse (05/07/18) Nail dystrophy Onychomycosis Immunosuppressed status LT prednisone for GCA On prednisone therapy (~04/2022) Abnormal gait (~06/2022) Peripheral neuropathy + vestibular ([facility] Neuro 01/2023) Elevated lipoprotein A level (~12/2021) Declines statin Hyperlipidemia (~07/2021) Recommend statin 07/2021; Eladia Read obtained lipoprotein a, elevated--> cardiology recommends consider statin 01/2022 Family history of prostate cancer in father Also PGF Benign prostatic hyperplasia (05/13/18) RX Flomax Hypertension (05/07/18) Goal 135-145 (lower & he feels poor)--didn't tolerate Lisinopril Peripheral neuropathy (05/07/18) EtOH related; [facility] Neuro 2017 & 2022 Diverticulosis (~08/2023) Cataracts, both eyes [place] 07/24/24 not visually significant Anemia in CKD (chronic kidney disease) Anemia (~08/2022) Lightheadedness PMR (polymyalgia rheumatica) (~04/2022) Impaired fasting glucose (05/07/18) Monitor annual A1Cs; +fam hx DMT2 Candidal paronychia Elevated serum creatinine Left scapholunate ligament tear Fracture of distal end of left radius (10/26/22) Immunization refused (~02/2022) 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 Seborrheic dermatitis of scalp Edema of lower extremity (05/07/18) Occurred x1, RX Furosemide and never reoccurred even off Furosemide Anxiety (05/07/18) Hepatomegaly (05/07/18) Resolved off EtOH Surgical History Tonsillectomy Appendectomy Family History Father , 73yo from metastatic prostate cancer Essential hypertension Heart disease Myocardial infarction Neoplasm Prostate Mother , early 70s diabetes complications Diabetes Paternal Grandfather , prostate cancer Neoplasm Prostate Social History Smoking/Tobacco Use Status: Former Tobacco Use Quit Date: 11/26/71 Smoking risk assessment performed?: Yes Alcohol Intake: current Alcohol Intake frequency: other Alcohol type: beer Drug use: Occasionally Substance use type: marijuana Household members: none Housing: apartment Number of Children: 3 Communication Needs: Corrective Lenses 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
[2025-01-05 02:29] LABS: Abs Immature Grans 0.08 10^3/uL (0.0-0.06); Absolute Basophil Count 0.03 10^3/uL (0.0-0.2); Absolute Eosinophil Count 0.06 10^3/uL (0.0-0.7); Absolute Lymphocyte Count 1.15 10^3/uL (1.2-3.4); Absolute Monocyte Count 0.64 10^3/uL (0.1-0.8); Absolute Neutrophil Count 10.85 10^3/uL (1.2-6.7); Basophils % 0.2 %; Eosinophils % 0.5 %; HCT 36.6 % (40.0-50.0); HGB 12.1 g/dL (13.5-17.5); Immature Grans % 0.6 %; MCH 30.2 pg (27.0-33.0); MCHC 33.1 % (32.0-36.0); MCV 91 fL (80-95); MPV 9.7 fL (8.0-11.0); Neutrophils % 84.7 %; Platelet Count 219 10^3/uL (130-400); RBC 4.01 10^6/uL (4.36-5.78); RDW 13.3 % (11.8-14.1); RDW-SD 45.1 fL; WBC 12.81 10^3/uL (4.4-10.8)
[2025-01-05 02:43] LABS: ALT 20 U/L (16-63); AST 15 U/L (15-37); Albumin 3.1 g/dL (3.4-5.0); Alkaline Phosphatase 67 U/L (46-116); Anion Gap 8.9 mmol/L (3-11); BUN 20 mg/dL (7-18); CO2 29.1 mmol/L (21.0-32.0); CREATININE 1.5 mg/dL (0.70-1.30); Chloride 103 mmol/L (98-107); Estimated GFR 47.95 (mL/min/1.73m2); Glucose 166 mg/dL (74-106); Potassium 3.9 mmol/L (3.5-5.1); Sodium 141 mmol/L (136-145); Total Protein 6.7 g/dL (6.4-8.2)
[2025-01-05 02:44] LABS: Bilirubin Negative (Negative); Blood Trace-lysed (Negative); Clarity Clear (Clear); Glucose Negative (Negative); Ketones Negative (Negative); Leukocyte Esterase Negative (Negative); Nitrite Negative (Negative); Urobilinogen 0.2 mg/dL (Up to 0.2); pH 5.5 (5-8)
--- NOTE | 2025-01-05 02:46 | DI.VRAD_ITS ---
PROCEDURE INFORMATION: Exam: XR Chest Exam date and time: 01/05/2025 2:42 AM Age: 74 years old Clinical indication: Cough and fever; Cough, fever TECHNIQUE: Imaging protocol: Radiologic exam of the chest. Views: 1 view. COMPARISON: CR XR CHEST 2V PA LATERAL 10/02/2024 8:19 PM FINDINGS: Lungs: Unremarkable. No consolidation. Pleural spaces: Unremarkable. No pleural effusion. No pneumothorax. Heart/Mediastinum: Unremarkable. No cardiomegaly. Bones/joints: Unremarkable. IMPRESSION: No acute findings. Dictated and Authenticated by: Norm Morocho MD. Orderin Claudette Terry MD
[2025-01-05 02:47] LABS: Calcium 8.8 mg/dL (8.5-10.1)
[2025-01-05] MEDS: levoFLOXacin 750 MG/150 ML BAG 100 MG IVPB (02:54)
[2025-01-05] MEDS: ACETAMINOPHEN 1,000 MG/100 ML BAG 400 MG IVPB (02:55)
[2025-01-05] MEDS: Normal Saline 1,000 ML 1000 ML IV (02:55)
[2025-01-05 02:56] LABS: Bacteria Negative HPF (Negative); C & S Indicated? C&S Done As Ordered; Casts Negative LPF (Negative); Crystals Negative HPF (Negative); Epithelial Cells Negative HPF (Negative); Mucus Negative (Negative); RBC 0-2 HPF (0-2); WBC 0-2 HPF (0-5)
[2025-01-05 03:00] LABS: COVID-19 PCR Negative (Negative); Influenza B PCR Negative (Negative); RSV PCR Negative (Negative)
[2025-01-05 03:01] LABS: Procalcitonin < 0.10 ng/mL
[2025-01-05 03:06] LABS: Source Nasopharynx
[2025-01-05 03:07] LABS: Influenza A PCR Positive (Negative)
[2025-01-05] MEDS: Oseltamivir 75 MG CAP PO (03:21)
--- NOTE | 2025-01-05 03:28 | W.PM.HP.N ---
Date of service: 01/05/25 Time of Service: 03:28 Assessment and Plan Assessment and plan (1) Flu: Status: Acute Assessment and plan: Influenza. I think this adequately accounts for presentation and I don't see that we will need to continue antibiotics. Will continue Tamiflu and otherwise general supportive care. With adequate blood pressure I don't see indication for stress steroids at this point and will plan to continue usual dose of Prednisone. TA: usual MTX and prednisone DM: SS coverage ADs: remains Full Code History of Present Illness History of Present Illness Chief Complaint: cough, fever Narrative: 74 male with h/o temporal arteritis, on MTX and Prednisone, here with 1-2 days of cough, fever and myalgias. Note he did not have flu shot. Here in ER initial findings of note for temp 39.4, white count 12 and negative CXR and urine. Lactate 3.0, Procal negative. Blood cxx obtained and patient given doses of Vanco and Levaquin and IVF.. At this point a Flu swab came back positive and patient given Tamiflu. I was asked to evaluate for admission. Patient denies similar illness at home. denies sore throat, rhinorrhea, denies anorexia. Review of Systems Narrative: per HPI PFSH All Active Problems (Updated 01/05/25 @ 03:35 by Judson Miller MD) Flu (Acute) GCA (giant cell arteritis) (Chronic ~11/2022) [facility] [place] Endo--RX Actremra 01/2023; discontinued in favor of daily prednisone 7.5mg daily; switched to methotrexate 06/2024 Steroid-induced diabetes (Chronic ~09/2022) Medical History History of alcohol abuse (05/07/18) Nail dystrophy Onychomycosis Immunosuppressed status LT prednisone for GCA On prednisone therapy (~04/2022) Abnormal gait (~06/2022) Peripheral neuropathy + vestibular ([facility] Neuro 01/2023) Elevated lipoprotein A level (~12/2021) Declines statin Hyperlipidemia (~07/2021) Recommend statin 07/2021; Eladia Read obtained lipoprotein a, elevated--> cardiology recommends consider statin 01/2022 Family history of prostate cancer in father Also PGF Benign prostatic hyperplasia (05/13/18) RX Flomax Hypertension (05/07/18) Goal 135-145 (lower & he feels poor)--didn't tolerate Lisinopril Peripheral neuropathy (05/07/18) EtOH related; [facility] Neuro 2017 & 2022 Diverticulosis (~08/2023) Cataracts, both eyes [place] 07/24/24 not visually significant Anemia in CKD (chronic kidney disease) Anemia (~08/2022) Lightheadedness PMR (polymyalgia rheumatica) (~04/2022) Impaired fasting glucose (05/07/18) Monitor annual A1Cs; +fam hx DMT2 Candidal paronychia Elevated serum creatinine Left scapholunate ligament tear Fracture of distal end of left radius (10/26/22) Immunization refused (~02/2022) 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 Seborrheic dermatitis of scalp Edema of lower extremity (05/07/18) Occurred x1, RX Furosemide and never reoccurred even off Furosemide Anxiety (05/07/18) Hepatomegaly (05/07/18) Resolved off EtOH Surgical History Tonsillectomy Appendectomy Family History Father , 73yo from metastatic prostate cancer Essential hypertension Heart disease Myocardial infarction Neoplasm Prostate Mother , early 70s diabetes complications Diabetes Paternal Grandfather , prostate cancer Neoplasm Prostate Social History Smoking/Tobacco Use Status: Former Tobacco Use Quit Date: 11/26/71 Smoking risk assessment performed?: Yes Alcohol Intake: current Alcohol Intake frequency: other Alcohol type: beer Drug use: Occasionally Substance use type: marijuana Household members: none Housing: apartment Number of Children: 3 Communication Needs: Corrective Lenses 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 Current gender identity: male What is your relationship status?: Panel score (0-1 are the most socially isolated patients): 0 What type of physical activity do you participate in: walking Duration: 15-30 minutes/day Frequency: 3-4 times per week Seatbelt use: always Drive intox or 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 team otr truck driver: No Working smoke detector in home: Yes Fire extinguisher in home: Yes Carbon monox detector in home: Yes Do you feel safe at home: Yes Do you feel safe in your relationship?: Yes Meds Allergies and Home Medications Allergies Allergy/AdvReac Type Severity Reaction Status Date / Time amoxicillin (From Augmentin) AdvReac Intermediate vomiting, Verified 01/05/25 03:36 GI Upset atenolol AdvReac Intermediate off Verified 01/05/25 03:36 balance, dizzy clavulanic acid (From AdvReac Intermediate vomiting, Verified 01/05/25 03:36 Augmentin) GI Upset Home Medications ?Medication ?Instructions ?Recorded ?Confirmed ?Type vitamin B complex (B 1 tab PO DAILY 05/06/21 01/05/25 History Complex-Vitamin B12 tablet) prednisone 5 mg tablet 5 mg PO DAILY #90 tabs 12/17/23 01/05/25 Rx tamsulosin 0.4 mg capsule (Flomax) 0.8 mg (2 x 0.4 mg) PO DAILY #180 05/19/24 01/05/25 Rx tab-caps blood sugar diagnostic #100 ea 06/09/24 01/05/25 Rx lancets #100 ea 06/09/24 01/05/25 Rx aspirin 325 mg tablet 162.5 - 325 mg PO DAILY PRN 06/26/24 01/05/25 History calcium 600 mg (as 2 tab PO DAILY #180 tabs 06/26/24 01/05/25 Rx carbonate)-vitamin D3 20 mcg (800 unit) tablet (Caltrate with Vitamin D3) prednisone 2.5 mg tablet 2.5 mg PO DAILY 06/26/24 01/05/25 History rosuvastatin 5 mg tablet 5 mg PO DAILY #90 tabs 06/26/24 01/05/25 Rx folic acid 1 tab PO DAILY 07/17/24 01/05/25 History methotrexate sodium 10 mg tablet 10 mg PO QWEEK 07/17/24 01/05/25 History prednisone 1 mg tablet 1 mg PO DAILY GCA #60 tabs 09/28/24 01/05/25 Rx blood-glucose meter #1 ea 09/29/24 01/05/25 Rx dapagliflozin propanediol 5 mg 5 mg PO QAM #30 tabs 10/01/24 01/05/25 Rx tablet (Farxiga) amlodipine 2.5 mg tablet See Rx Instructions .Route 12/28/24 01/05/25 Rx .COMPLEX #30 tabs Exam Narrative Exam Narrative: 162/65, 121, 39.4, 26, 94% RA. HEENT somewhat Cushingoid; neck supple; lungs clear; heart RRR; abdomen soft and NT; extremities w/o edema; neuro Ox3, moves all 4s Results Labs 01/05/25 02:17 01/05/25 02:17 Labs: Laboratory Results - last 24 hr 01/05/25 01/05/25 02:05 02:17 WBC 12.81 H RBC 4.01 L Hgb 12.1 L Hct 36.6 L MCV 91 MCH 30.2 MCHC 33.1 RDW 13.3 Plt Count 219 MPV 9.7 Immature Gran % 0.6 Neutrophils % 84.7 Lymphocytes % 9.0 Monocytes % 5.0 Eosinophils % 0.5 Basophils % 0.2 Nucleated RBC % 0.0 Absolute Neutrophils 10.85 H Absolute Lymphocytes 1.15 L Absolute Monocytes 0.64 Absolute Eosinophils 0.06 Absolute Basophils 0.03 VBG Lactate 3.0 H* Sodium 141 Potassium 3.9 Chloride 103 Carbon Dioxide 29.1 Anion Gap 8.9 BUN 20 H Creatinine 1.5 H Est GFR (CKD-EPI 2020) 47.95 Glucose 166 H Calcium 8.8 Total Bilirubin 0.40 AST 15 ALT 20 Alkaline Phosphatase 67 Total Protein 6.7 Albumin 3.1 L Procalcitonin < 0.10 Urine Color Yellow Urine Clarity Clear Urine pH 5.5 Ur Specific [place] 1.020 Urine Protein Negative Urine Ketones Negative Urine Blood Trace-lysed H Urine Nitrite Negative Urine Bilirubin Negative Urine Urobilinogen 0.2 Ur Leukocyte Esterase Negative Urine RBC 0-2 Urine WBC 0-2 Ur Epithelial Cells Negative Urine Crystals Negative Urine Bacteria Negative Urine Casts Negative Urine Mucus Negative Ur Culture Indicated? C&S Done As Ordered Urine Glucose Negative COVID-19 Source Nasopharynx SARS-CoV-2 (PCR) Negative Influenza Type A (PCR) Positive A Influenza Type B (PCR) Negative RSV (PCR) Negative Last Vital Signs Temp 39.4 C H 01/05/25 02:45 Pulse 121 H 01/05/25 03:27 Resp 26 H 01/05/25 03:27 BP 162/65 H 01/05/25 03:27 Pulse Ox 94 01/05/25 03:27 Time Spent Time spent with Patient: 40-54 minutes Time was spent: preparing to see the patient(eg.review tests), obtaining and/or reviewing separately otained hiistory, ordering medications,tests, procedures, referring, communicating with other health care process manager and indepentently interpreting results
[2025-01-05 06:26] LABS: Lactate 1.2 mmol/L (<or=2.0)
[2025-01-05] MEDS: predniSONE 5 MG TAB PO (08:38)
[2025-01-05] MEDS: Calcium 600mg/Vit D 200U TAB 2 TAB PO (08:38)
[2025-01-05] MEDS: Vitamins B Comp w/C TAB 1 TAB PO (08:38)
[2025-01-05] MEDS: Tamsulosin 0.4 MG CAPCR 0.8 MG PO (08:38)
[2025-01-05] MEDS: Folic Acid 1 MG TAB PO (08:38)
[2025-01-05] MEDS: Insulin Aspart 300 UNITS/3 ML PEN SC ×3 (08:38→17:11)
[2025-01-05] MEDS: Rosuvastatin 5 MG TAB PO (08:46)
[2025-01-05] MEDS: predniSONE 1 MG TAB 2 MG PO (08:47)
--- NOTE | 2025-01-05 09:52 | PDOC.CMIN ---
Date of service: 01/05/25 Time of Service: 09:52 Care Management Initial Assmt Initial Assessment Reason for Hospitalization: Influenza Functional Status/Living Situation Town of Residence: [place] Resides with: Alone Significant Other/Family: Out of area (sister in [place]) Employment Status: Retired Advance Directives Advance Directives: Do you have an Advance Directive: N 03/03/19 11:30 AD On File at [facility]: N 03/03/19 11:30 Date Asked 01/05/25 01/05/25 07:44 AD Date Reviewed COLST On File at [facility] COLST Date Scanned Code Status Resuscitation Status Full Code Portal Pt does not currently have a portal and education provided: No Insurance Coverage/Financial Issues Insurance: Medicare Medicaid Care Team Visit Care Team Role Provider Type Yesy Nagy NP Primary Care Provider NURSE PRACTITIONER Ayleen Vega RDN, [facility] Other Providers RN ACLS Eva Szymanski Other Providers RN ACLS Luisito Hawkins RDN Other Providers RN ACLS Harrison Wilkins DO Emergency Provider [facility] STAFF PHYSICIAN Judson Miller MD Admit Provider [facility] STAFF PHYSICIAN Attending Provider Discharge Potential Discharge Needs: PCP F/U Appt Anticipated Barriers to Discharge: None Identified Patient/Family Education Needs: Review discharge instructions, discuss Ask Me Three Transportation: Private vehicle Plan: Anticipate Judson will be discharged home with no new services when medically stable. He will follow up with his PCP and plan of care and transport via [facility] coordinated by CM. CM will follow and continue to support discharge planning considerations. Social Determinants of Health Screening Social Determinants of Health last assessed: 01/05/25 Will the Patient Participate in the Screening?: Yes Do you worry about having a steady place to live?: no Problems where you live: no known problems In the past 12 months, have you had to go without electric, gas, oil or water in your home?: no Have you or anyone in your house had to go without enough food to eat?: no Has lack of transportation kept you from medical appointments or from doing things needed for daily living?: no Has anyone in your life made you feel unsafe or unsupported?: no How hard is it for you to pay for the very basics like food, housing, medical care, and heating? Would you say it is:: Not hard at all Do you want help finding or keeping work or a job?: I do not need or want help If for any reason you need help with day-to-day activities such as bathing, preparing meals, shopping, managing finances, etc., do you get the help you need?: I don?t need any help How often do you feel lonely or isolated from those around you?: Never Do you speak a language other than Tunisian at home?: No Health Related Social Needs Health related social needs: education (Z55.6) PFSH All Active Problems (Updated 01/05/25 @ 03:53 by Harrison Wilkins DO) Influenza A (Acute) Sepsis (Acute) Flu (Acute) GCA (giant cell arteritis) (Chronic ~11/2022) [facility] Actremra 01/2023; discontinued in favor of daily prednisone 7.5mg daily; switched to methotrexate 06/2024 Steroid-induced diabetes (Chronic ~09/2022) Medical History History of alcohol abuse (05/07/18) Nail dystrophy Onychomycosis Immunosuppressed status LT prednisone for GCA On prednisone therapy (~04/2022) Abnormal gait (~06/2022) Peripheral neuropathy + vestibular ([facility] [place]23) Elevated lipoprotein A level (~12/2021) Declines statin Hyperlipidemia (~07/2021) Recommend statin 07/2021; Hand Mexican Food Maker Reynaldo Read obtained lipoprotein a, elevated--> cardiology recommends consider statin 01/2022 Family history of prostate cancer in father Also PGF Benign prostatic hyperplasia (05/13/18) RX Flomax Hypertension (05/07/18) Goal 135-145 (lower & he feels poor)--didn't tolerate Lisinopril Peripheral neuropathy (05/07/18) EtOH related; [facility] [place] 2017 & 2022 Diverticulosis (~08/2023) Cataracts, both eyes [place] 07/24/24 not visually significant Anemia in CKD (chronic kidney disease) Anemia (~08/2022) Lightheadedness PMR (polymyalgia rheumatica) (~04/2022) Impaired fasting glucose (05/07/18) Monitor annual A1Cs; +fam hx DMT2 Candidal paronychia Elevated serum creatinine Left scapholunate ligament tear Fracture of distal end of left radius (10/26/22) Immunization refused (~02/2022) Tachycardia patient monitor stable--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 Seborrheic dermatitis of scalp Edema of lower extremity (05/07/18) Occurred x1, RX Furosemide and never reoccurred even off Furosemide Anxiety (05/07/18) Hepatomegaly (05/07/18) Resolved off EtOH Surgical History Tonsillectomy Appendectomy Family History Father , 73yo from metastatic prostate cancer Essential hypertension Heart disease Myocardial infarction Neoplasm Prostate Mother , early 70s diabetes complications Diabetes Paternal Grandfather , prostate cancer Neoplasm Prostate Social History Smoking/Tobacco Use Status: Former Tobacco Use Quit Date: 11/26/71 Smoking risk assessment performed?: Yes Alcohol Intake: current Alcohol Intake frequency: other Alcohol type: beer Drug use: Occasionally Substance use type: marijuana Household members: none Housing: apartment Number of Children: 3 Communication Needs: Corrective Lenses 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
--- NOTE | 2025-01-05 10:08 | W.PC.ACHO ---
Registration Status: Primary Language: Preferred Language: ED Information & Data Chief Complaint RespSymp 01/05/25 02:41 Chief Complaint RespSymp 01/05/25 02:32 Triage Note BIBA from home, pts roommate 01/05/25 02:32 called stating the pt was confused and had a cough, and increased SOB with fevers for a few days and the confusion got worse and the pt had increased urinary frequency and incontinence. Upon ED arrival pt febrile and incont of urine Medical / Surgical History (Last Reviewed 01/05/25 @ 03:33 by Judson Miller MD) History of alcohol abuse (05/07/18) Nail dystrophy Onychomycosis Immunosuppressed status On prednisone therapy (~04/2022) Abnormal gait (~06/2022) Elevated lipoprotein A level (~12/2021) Hyperlipidemia (~07/2021) Family history of prostate cancer in father Benign prostatic hyperplasia (05/13/18) Hypertension (05/07/18) Peripheral neuropathy (05/07/18) Diverticulosis (~08/2023) Cataracts, both eyes Anemia in CKD (chronic kidney disease) Anemia (~08/2022) Lightheadedness PMR (polymyalgia rheumatica) (~04/2022) Impaired fasting glucose (05/07/18) Candidal paronychia Elevated serum creatinine Left scapholunate ligament tear Fracture of distal end of left radius (10/26/22) Immunization refused (~02/2022) Tachycardia Seborrheic dermatitis of scalp Edema of lower extremity (05/07/18) Anxiety (05/07/18) Hepatomegaly (05/07/18) (Last Reviewed 01/05/25 @ 03:33 by Judson Miller MD) Tonsillectomy Appendectomy Most Recent Vital Signs Temperature 36.8 C 01/05/25 07:57 Temperature Source Oral 01/05/25 04:22 Pulse 89 01/05/25 07:57 Pulse Rhythm Regular 01/05/25 07:57 Pulse Strength Normal 01/05/25 03:27 Respiratory Rate 18 01/05/25 07:57 Respiratory Effort Short of Breath 01/05/25 07:57 Respiratory Depth Normal 01/05/25 07:57 Respiratory Pattern Normal 01/05/25 07:57 Blood Pressure 120/58 L 01/05/25 07:57 Blood Pressure Mean 97 01/05/25 03:27 Blood Pressure Position Sitting 01/05/25 03:27 Pulse Oximetry 99 01/05/25 07:57 Oxygen Delivery Method Nasal Cannula 01/05/25 07:57 Oxygen Flow Rate 2 01/05/25 07:57 Pain Level 4 01/05/25 07:57 Allergies amoxicillin (From Augmentin) Adverse Reaction (Intermediate, Verified 01/05/25 03:36) vomiting, GI Upset atenolol Adverse Reaction (Intermediate, Verified 01/05/25 03:36) off balance, dizzy clavulanic acid (From Augmentin) Adverse Reaction (Intermediate, Verified 01/05/25 03:36) vomiting, GI Upset Precautions Isolation Airborne precaution 01/05/25 02:41 Active Medications Generic Name Dose Route Start Last Admin Trade Name Freq PRN Reason Stop Dose Admin Calcium/Vitamin D 2 tab 01/05/25 08:30 01/05/25 08:38 Calcium 600mg/Vit D 200u Tab PO 2 tab DAILY SHARATH Administration Folic Acid 1 mg 01/05/25 08:30 01/05/25 08:38 Folic Acid 1 Mg Tab PO 1 mg QAM [facility] Administration Insulin Aspart 0 units 01/05/25 08:00 01/05/25 08:38 Insulin Aspart 300 Units/3 Ml Pen SC 1 unit 0800,1200,1700 SHARATH Administration Protocol Pt's Own 1 each 01/05/25 08:30 01/05/25 08:31 Dapagliflozin PO Not Given Propanediol [[facility] 5 Mg Tablet Prednisone 5 mg 01/05/25 08:30 01/05/25 08:38 Prednisone 5 Mg Tab PO 5 mg DAILY SHARATH Administration Prednisone 2 mg 01/05/25 08:30 01/05/25 08:47 Prednisone 1 Mg Tab PO 2 mg DAILY SHARATH Administration Rosuvastatin Calcium 5 mg 01/05/25 08:30 01/05/25 08:46 Rosuvastatin 5 Mg Tab PO 5 mg DAILY SHARATH Administration Tamsulosin HCl 0.8 mg 01/05/25 08:30 01/05/25 08:38 Tamsulosin 0.4 Mg Capcr PO 0.8 mg DAILY SHARATH Administration Vitamin B Complex/Vitamin C 1 tab 01/05/25 08:30 01/05/25 08:38 Vitamins B Comp W/C Tab PO 1 tab DAILY SHARATH Administration IV IV Catheter Type [Right Upper Saline Lock arm] IV Catheter Type [Right Saline Lock Antecubital] IV Catheter Gauge [Right Upper 18 arm] IV Catheter Gauge [Right 18 Antecubital] Diet Orders Category Date Time Status Diabetes Consistent CHO [DIET] Nutrition 01/05/25 Breakfast Active Diagnostics 01/05/25 01/05/25 01/05/25 Range/Units 06:22 02:17 02:05 WBC 12.81 H (4.4-10.8) 10^3/uL RBC 4.01 L (4.36-5.78) 10^6/uL Hgb 12.1 L (13.5-17.5) g/dL Hct 36.6 L (40.0-50.0) % MCV 91 (80-95) fL MCH 30.2 (27.0-33.0) pg MCHC 33.1 (32.0-36.0) % RDW 13.3 (11.8-14.1) % Plt Count 219 (130-400) 10^3/uL MPV 9.7 (8.0-11.0) fL Immature Gran % 0.6 % Neutrophils % 84.7 % Lymphocytes % 9.0 % Monocytes % 5.0 % Eosinophils % 0.5 % Basophils % 0.2 % Nucleated RBC % 0.0 (0.0-0.3) % Absolute Neutrophils 10.85 H (1.2-6.7) 10^3/uL Absolute Lymphocytes 1.15 L (1.2-3.4) 10^3/uL Absolute Monocytes 0.64 (0.1-0.8) 10^3/uL Absolute Eosinophils 0.06 (0.0-0.7) 10^3/uL Absolute Basophils 0.03 (0.0-0.2) 10^3/uL VBG Lactate 1.2 3.0 H* (<or=2.0) mmol/L Sodium 141 (136-145) mmol/L Potassium 3.9 (3.5-5.1) mmol/L Chloride 103 (98-107) mmol/L Carbon Dioxide 29.1 (21.0-32.0) mmol/L Anion Gap 8.9 (3-11) mmol/L BUN 20 H (7-18) mg/dL Creatinine 1.5 H (0.70-1.30) mg/dL Est GFR (CKD-EPI 2020) 47.95 (mL/min/1.73m2) Glucose 166 H (74-106) mg/dL Calcium 8.8 (8.5-10.1) mg/dL Total Bilirubin 0.40 (0.2-1.0) mg/dL AST 15 (15-37) U/L ALT 20 (16-63) U/L Alkaline Phosphatase 67 (46-116) U/L Total Protein 6.7 (6.4-8.2) g/dL Albumin 3.1 L (3.4-5.0) g/dL Procalcitonin < 0.10 ng/mL Urine Color Yellow (Yellow) Urine Clarity Clear (Clear) Urine pH 5.5 (5-8) Ur Specific [place] 1.020 (1.005-1.025) Urine Protein Negative (Neg-Trace) mg/dL Urine Ketones Negative (Negative) mg/dL Urine Blood Trace-lysed H (Negative) Urine Nitrite Negative (Negative) Urine Bilirubin Negative (Negative) Urine Urobilinogen 0.2 (Up to 0.2) mg/dL Ur Leukocyte Esterase Negative (Negative) Urine RBC 0-2 (0-2) HPF Urine WBC 0-2 (0-5) HPF Ur Epithelial Cells Negative (Negative) HPF Urine Crystals Negative (Negative) HPF Urine Bacteria Negative (Negative) HPF Urine Casts Negative (Negative) LPF Urine Mucus Negative (Negative) Ur Culture Indicated? C&S Done As Ordered Urine Glucose Negative (Negative) mg/dL COVID-19 Source Nasopharynx SARS-CoV-2 (PCR) Negative (Negative) Influenza Type A (PCR) Positive A (Negative) Influenza Type B (PCR) Negative (Negative) RSV (PCR) Negative (Negative) 01/05/25 02:55 Blood Culture - Pending Blood 01/05/25 02:05 Urine Culture - Pending Urine - Clean Catch 01/05/25 02:28 Blood Culture - Pending Blood [id number] Documentation Fingerstick Glucose Start: 01/05/25 03:42 Freq: .AC Status: Active Protocol: Activity Type Activity Date Activity User E-sign Co-sign Detail Recorded Client Recorded Date Recorded By Document 01/05/25 08:11 TAYE ZAMORA(3) [id number] 01/05/25 08:12 TAYE ZAMORA(4) Intake and Output - 24 Hour Total 01/05/25 01:46 thru 01/05/25 08:55 Intake Total 3000 Output Total 800 Balance 2200 Weight 81.193 kg Intake: IV 1750 Oral 150 Other 1100 Output: Urine 800 Other: Urine Color Pale Urine Appearance Clear Urine Odor None Stool Size Moderate Stool Characteristics Formed Falls Risk Assessment History of Falls No History 01/05/25 07:57 Contributing Factors No Factors 01/05/25 07:57 Ambulatory Aids Independent 01/05/25 07:57 Tubes/Lines None 01/05/25 07:57 Gait Evaluation No gait disturbance 01/05/25 07:57 Cognition No cognitive impairment 01/05/25 07:57 Fall Total Score 0 01/05/25 07:57 Level of Risk Standard/Low Risk 01/05/25 07:57 Problems (Last Reviewed 01/05/25 @ 03:33 by Judson Miller MD) Flu (Acute) v v v v v v v v v Sending and/or Receiving Nurses: Please use comment section below to note any information pertinent to the patient hand-off not included above. Information / Comments: A&Ox4, able to make needs known, on 3L NC, cough w/ thick suputum, HRR, 18G to RAC and 18G AKBAR, indpendendt at home, increased weakness, sob, and fatigue. Flu A+ Report received from: lynne Christianson RN at [id number]
--- NOTE | 2025-01-05 10:11 | W.INDIABCONS ---
Date of service: 01/07/25 Time of Service: 09:30 Diabetes Inpatient Consult Reason for Visit: received consult request re: diabetes ed/mgt DESCRIPTION/ASSESSMENT: 4yo male admitted with flu, sepsis and has a hx of steroid induced diabetes. weight is stable. A1c 8.6 09/2024 takes farxiga at home. Also on prednisone at home and this admission, contributing to elevated glucose. Pt ordered for insulin aspart sliding scale TID at meals for correction. glucose 118 fasting this morning, 105 at breakfast this morning, 221 at lunch lytes wnl (potassium 3.4 today). GFR at 56.9 2/10 total protein wnl, low albumin at 3.1 >50% po intake at meals INTERVENTION: recommend continue on consistent carb diet order with glucose monitoring and insulin managment. pt offered outpatient services for more individualized medical nutrition therapy. PLAN: will continue monitoring nutrition status for changes Time Spent in Nutritional Counseling and Treatment: 10 min
[2025-01-05] MEDS: Acetaminophen 500 MG TAB 1000 MG PO ×2 (11:55→19:57)
--- NOTE | 2025-01-05 16:19 | PDOC.CMIN ---
Date of service: 01/05/25 Time of Service: 16:19 Care Management Initial Assmt Initial Assessment Reason for Hospitalization: Influenza Functional Status/Living Situation Patient Presentation: Judson was lying in bed when CM met with him. He stated that he does not feel well, but he is starting to feel a little better than when he arrived. He reported that he lives in [facility] with his roommate, Mickey. He has a sister who does not live in the area, but he stated that they do not always get along. He reported that he is generally independent at home. He stated that his plan will be to return home, and doesn't anticipate the need for services at this time. CM will continue to follow. Town of Residence: [facility] Resides with: Other (roommate) Significant Other/Family: Out of area Employment Status: Retired Instrumental Activities of Daily Living (ADLs): Independent Medications Medication Management: No Issues/Barriers identified Advance Directives Advance Directives: Do you have an Advance Directive: N 03/03/19 11:30 AD On File at [facility]: N 03/03/19 11:30 Date Asked 01/05/25 01/05/25 07:44 AD Date Reviewed COLST On File at [facility] COLST Date Scanned Code Status Resuscitation Status Full Code Insurance Coverage/Financial Issues Insurance: [facility] Care Team Visit Care Team Role Provider Type Yesy Nagy NP Primary Care Provider NURSE PRACTITIONER Ayleen Vega RDN, [facility] Other Providers AUTO WRECKER Eva Szymanski Other Providers AUTO WRECKER Luisito Hawkins RDN Other Providers AUTO WRECKER Harrison Wilkins, Emergency Provider [facility] STAFF PHYSICIAN Judson Miller MD Admit Provider [facility] STAFF PHYSICIAN Attending Provider Discharge Potential Discharge Needs: PCP F/U Appt Anticipated Barriers to Discharge: None Identified Patient/Family Education Needs: Review discharge instructions, discuss Ask Me Three Transportation: [facility] RCT Transportation: Private vechicle Plan: Anticipate Judson will return home once medically cleared. He will transport home via RCT private vehicle when ready, coordinated by CM. He will follow up with his PCP and discharge plan of care. CM will continue to follow. Social Determinants of Health Screening Social Determinants of Health last assessed: 01/05/25 Will the Patient Participate in the Screening?: Yes Do you worry about having a steady place to live?: no Problems where you live: no known problems In the past 12 months, have you had to go without electric, gas, oil or water in your home?: no Have you or anyone in your house had to go without enough food to eat?: no Has lack of transportation kept you from medical appointments or from doing things needed for daily living?: no Has anyone in your life made you feel unsafe or unsupported?: no How hard is it for you to pay for the very basics like food, housing, medical care, and heating? Would you say it is:: Not hard at all Do you want help finding or keeping work or a job?: I do not need or want help If for any reason you need help with day-to-day activities such as bathing, preparing meals, shopping, managing finances, etc., do you get the help you need?: I don?t need any help How often do you feel lonely or isolated from those around you?: Never Do you speak a language other than Jordanian at home?: No Health Related Social Needs Health related social needs: education (Z55.6) PFSH All Active Problems (Updated 01/05/25 @ 03:53 by Harrison Wilkins DO) Influenza A (Acute) Sepsis (Acute) Flu (Acute) GCA (giant cell arteritis) (Chronic ~11/2022) [facility]--RX Actremra 01/2023; discontinued in favor of daily prednisone 7.5mg daily; switched to methotrexate 06/2024 Steroid-induced diabetes (Chronic ~09/2022) Medical History History of alcohol abuse (05/07/18) Nail dystrophy Onychomycosis Immunosuppressed status LT prednisone for GCA On prednisone therapy (~04/2022) Abnormal gait (~06/2022) Peripheral neuropathy + vestibular ([facility] Neuro 01/2023) Elevated lipoprotein A level (~12/2021) Declines statin Hyperlipidemia (~07/2021) Recommend statin 07/2021; Eladia Read obtained lipoprotein a, elevated--> cardiology recommends consider statin 01/2022 Family history of prostate cancer in father Also PGF Benign prostatic hyperplasia (05/13/18) RX Flomax Hypertension (05/07/18) Goal 135-145 (lower & he feels poor)--didn't tolerate Lisinopril Peripheral neuropathy (05/07/18) EtOH related; [facility] Neuro 2017 & 2022 Diverticulosis (~08/2023) Cataracts, both eyes [place] 07/24/24 not visually significant Anemia in CKD (chronic kidney disease) Anemia (~08/2022) Lightheadedness PMR (polymyalgia rheumatica) (~04/2022) Impaired fasting glucose (05/07/18) Monitor annual A1Cs; +fam hx DMT2 Candidal paronychia Elevated serum creatinine Left scapholunate ligament tear Fracture of distal end of left radius (10/26/22) Immunization refused (~02/2022) Tachycardia monitoring tech stable--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 Seborrheic dermatitis of scalp Edema of lower extremity (05/07/18) Occurred x1, RX Furosemide and never reoccurred even off Furosemide Anxiety (05/07/18) Hepatomegaly (05/07/18) Resolved off EtOH Surgical History Tonsillectomy Appendectomy Family History Father , 73yo from metastatic prostate cancer Essential hypertension Heart disease Myocardial infarction Neoplasm Prostate Mother , early 70s diabetes complications Diabetes Paternal Grandfather , prostate cancer Neoplasm Prostate Social History Smoking/Tobacco Use Status: Former Tobacco Use Quit Date: 11/26/71 Smoking risk assessment performed?: Yes Alcohol Intake: current Alcohol Intake frequency: other Alcohol type: beer Drug use: Occasionally Substance use type: marijuana Household members: none Housing: apartment Number of Children: 3 Communication Needs: Corrective 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
--- NOTE | 2025-01-05 16:57 | PHA.REVIEW2 ---
Pharmacy Admission Review Admission Clinical Review Admission Pharmacy Review: Flu (Acute) amoxicillin (From Augmentin) Adverse Reaction (Intermediate, Verified 01/05/25 03:36) vomiting, GI Upset atenolol Adverse Reaction (Intermediate, Verified 01/05/25 03:36) off balance, dizzy clavulanic acid (From Augmentin) Adverse Reaction (Intermediate, Verified 01/05/25 03:36) vomiting, GI Upset Resuscitation Status Full Code Height 5 ft 7 in Weight 81.193 kg Comments Comments/Follow Ups: Follow up on DVT prophylaxis if no orders are put in, blood/urine cultures pending Pharmacy Admission Review Renal Dosing Renal Dosing: BUN 20 mg/dL (7-18) H 01/05/25 02:17 Creatinine 1.5 mg/dL (0.70-1.30) H 01/05/25 02:17 Medications needing adjustments: Intervened (CrCl 42.75 mL/min) List of meds needing interventions: Changed Tamiflu from 75mg BID to 30mg BID Anticoagulation Anticoagulation: Hgb 12.1 g/dL (13.5-17.5) L 01/05/25 02:17 Hct 36.6 % (40.0-50.0) L 01/05/25 02:17 Plt Count 219 10^3/uL (130-400) 01/05/25 02:17 Creatinine 1.5 mg/dL (0.70-1.30) H 01/05/25 02:17 DVT Prophylaxis: Reviewed (None ordered at this time - reached out to provider, waiting to hear back) Relevant Labs Relevant Labs: Sodium 141 mmol/L (136-145) 01/05/25 02:17 Potassium 3.9 mmol/L (3.5-5.1) 01/05/25 02:17 Chloride 103 mmol/L (98-107) 01/05/25 02:17 Electrolytes, C-Reactive P, ESR: Reviewed DM Control DM Control: Glucose 166 mg/dL (74-106) H 01/05/25 02:17 Finger Stick Blood Glucose 246 1635 Finger Stick Blood Glucose 246 1635 Finger Stick Blood Glucose 194 1156 Finger Stick Blood Glucose 194 1132 Finger Stick Blood Glucose 194 1132 DM Control: Reviewed Insulin Dosing, Diabetic Medication: Has order for SS insulin and has order for patients own Farxiga (non-formulary) Cardiac Review Cardiac Review: Blood Pressure 141/75 1550 Blood Pressure 138/68 1327 Blood Pressure 120/58 0757 Blood Pressure 114/60 0702 Blood Pressure 118/55 0600 Blood Pressure 119/59 0531 BP, HR, EF%: Reviewed (HR WNL, Ox 91) List meds needing interventions: has order for amlodipine 2.5mg daily QTc Review QTc: Reviewed (452 from 10/02/24 - most recent EKG on file) IV to PO Switch IV Medications: Reviewed Home Meds Home Med List reviewed: Intervened Relevent Home Meds Not ordered & why?: Took methotrexate off home med list and discontinued order - per nurse patient reports that they are no longer taking Changed Farxiga to patients own order - nurse is checking if this can be brought in for the patient Current Meds Current Medication Order Review: Reviewed Comments: Patient is on Tamiflu, day 1. Pharmacy Antibiotic Review Relevant Labs: Relevant Labs 01/05/25 02:17 Procalcitonin < 0.10 Comments Comments/Follow Ups: Follow up on DVT prophylaxis if no orders are put in, blood/urine cultures pending
[2025-01-05] MEDS: amLODIPine 2.5 MG TAB PO (19:39)
[2025-01-05] MEDS: Oseltamivir 30 MG CAP PO (19:39)
[2025-01-05] MEDS: Enoxaparin 40 MG/0.4 ML SYR SC (19:40)
[2025-01-05] MEDS: Melatonin 3 MG TAB 6 MG PO (19:57)
[2025-01-06] VITALS (7 sets, daily range): BP systolic 119–153; BP diastolic 72–75; PULSE 61–80; RESP 18–22; TEMP 36.8–38.6; O2SAT 92–95
[2025-01-06] MEDS: Acetaminophen 500 MG TAB 1000 MG PO ×2 (04:23→17:47)
[2025-01-06 07:02] LABS: Abs Immature Grans 0.04 10^3/uL (0.0-0.06); Absolute Basophil Count 0.03 10^3/uL (0.0-0.2); Absolute Eosinophil Count 0.01 10^3/uL (0.0-0.7); Absolute Lymphocyte Count 0.94 10^3/uL (1.2-3.4); Absolute Monocyte Count 0.81 10^3/uL (0.1-0.8); Absolute Neutrophil Count 7.21 10^3/uL (1.2-6.7); Basophils % 0.3 %; Eosinophils % 0.1 %; HCT 32.5 % (40.0-50.0); Immature Grans % 0.4 %; Lymphocytes % 10.4 %; MCH 30.2 pg (27.0-33.0); MCHC 33.8 % (32.0-36.0); MCV 89 fL (80-95); MPV 9.8 fL (8.0-11.0); Neutrophils % 79.8 %; Platelet Count 186 10^3/uL (130-400); RBC 3.64 10^6/uL (4.36-5.78); RDW 13.8 % (11.8-14.1); RDW-SD 45.6 fL; WBC 9.04 10^3/uL (4.4-10.8)
[2025-01-06 07:22] LABS: Anion Gap 5.9 mmol/L (3-11); BUN 14 mg/dL (7-18); CO2 28.1 mmol/L (21.0-32.0); CREATININE 1.3 mg/dL (0.70-1.30); Chloride 104 mmol/L (98-107); Estimated GFR 56.93 (mL/min/1.73m2); Glucose 119 mg/dL (74-106); Potassium 3.4 mmol/L (3.5-5.1); Sodium 138 mmol/L (136-145)
[2025-01-06] MEDS: Folic Acid 1 MG TAB PO (07:57)
[2025-01-06] MEDS: Vitamins B Comp w/C TAB 1 TAB PO (07:57)
[2025-01-06] MEDS: Tamsulosin 0.4 MG CAPCR 0.8 MG PO (07:57)
[2025-01-06] MEDS: Rosuvastatin 5 MG TAB PO (07:57)
[2025-01-06] MEDS: predniSONE 1 MG TAB 2 MG PO (07:57)
[2025-01-06] MEDS: Calcium 600mg/Vit D 200U TAB 2 TAB PO (07:57)
[2025-01-06] MEDS: predniSONE 5 MG TAB PO (07:57)
[2025-01-06] MEDS: Normal Saline Flush 10 ML SYR IVP ×2 (07:57→19:43)
[2025-01-06] MEDS: Oseltamivir 30 MG CAP PO ×2 (07:57→19:44)
[2025-01-06] MEDS: Potassium Chloride 20 MEQ TABCR PO (09:10)
[2025-01-06] MEDS: Insulin Aspart 300 UNITS/3 ML PEN SC ×2 (12:24→17:06)
--- NOTE | 2025-01-06 12:47 | PGE_ITS ---
Date of Service Date of service: 01/06/25 Time of Service: 12:47 Assessment and Plan Assessment and plan (1) Flu: Status: Acute Assessment and plan: Influenza Continue Tamiflu and otherwise general supportive care. Continue prednisone Monitor respiratory status VSS - no O2 requirement. plan on home tomorrow if continues to improve Discussed with Dr Norman Subjective Subjective Patient reports: no new complaints, pain is less, bowel movement and afebrile; denies diarrhea or vomiting Interval history since last seen: Reports feeling so much better than yesterday - CAOx4 today, recalls feeling out of it yesterday. Exam Const General: no acute distress Orientation: alert HENMT Head: normal to inspection Ears: external ears normal General nose exam: external nose normal Mouth: moist mucous membranes Eyes General: appearance normal, both eyes and all related structures Neck Neck: normal visual inspection Resp Effort & Inspection: normal respiratory effort and able to speak in complete sentences Auscultation: diminished lung sounds Cardio Rate: regular rate GI Palpation: soft and nontender Skin General skin exam: no rashes or lesions noted Neuro General: patient alert and patient oriented x3 Extrem General: normal to inspection Psych Mental Status: mental status grossly normal Objective Last Vital Signs Temp 36.8 C 01/06/25 06:12 Pulse 80 01/06/25 04:19 Resp 20 01/06/25 04:19 BP 138/72 01/06/25 04:19 Pulse Ox 95 01/06/25 04:19 Laboratory Results - last 24 hr 01/06/25 06:25 WBC 9.04 RBC 3.64 L Hgb 11.0 L Hct 32.5 L MCV 89 MCH 30.2 MCHC 33.8 RDW 13.8 Plt Count 186 MPV 9.8 Immature Gran % 0.4 Neutrophils % 79.8 Lymphocytes % 10.4 Monocytes % 9.0 Eosinophils % 0.1 Basophils % 0.3 Nucleated RBC % 0.0 Absolute Neutrophils 7.21 H Absolute Lymphocytes 0.94 L Absolute Monocytes 0.81 H Absolute Eosinophils 0.01 Absolute Basophils 0.03 Sodium 138 Potassium 3.4 L Chloride 104 Carbon Dioxide 28.1 Anion Gap 5.9 BUN 14 Creatinine 1.3 Est GFR (CKD-EPI 2020) 56.93 Glucose 119 H Calcium 9.0 PAWSS Have you Been Recently Intoxicated or Drunk Within the Last 30 days?: No Have you Ever Experienced Previous Episodes of Alcohol Withdrawal?: No Have you ever Experienced Withdrawal Seizures?: No Have you ever Experienced Delirium Tremens(DT)s?: No Have you ever undergone Alcohol Rehabilitation Treatment (i.e, inpt ot outpatient treatment programs)?: No Have you ever Experienced Blackouts?: No Have you ever Combined Alcohol with other Downers within the last 90 days?: No Have you ever Combined Alcohol with any other Substance of Abuse during the last 90 days?: No Positive Blood Alcohol level on Presentation? [PCS.BAL]: No Evidence of Increased Autonomic Activity (i.e. HR>120, tremor, sweating, agitation, nausea)?: No Result: 0 Time Spent with Patient Time Spent with Patient: 25-34 minutes Time was spent: preparing to see the patient(eg.review tests), ordering medications,tests, procedures, referring, communicating with other health care coordination manager, indepentently interpreting results, counseling the patient and care coordination
--- NOTE | 2025-01-06 15:00 | PDOC.CMPRO ---
Date of service: 01/06/25 Time of Service: 15:00 Care Management Progress Note Progress Note Text Progress Note Text: Judson was lying in bed when CM met with him. He stated that he is still not feeling well, and he feels weak, which is not normal for him. CM suggested that he work with PT, and asked for a consult from the hospitalist. Judson stated that other than ambulation (reports feeling unsteady on his feet), he is worried about making his own meals while he recuperates from the flu. CM asked if his roommate would be able to help him with meals for a few days, to which he stated that Mickey would be able to help. CM will look for PT's recommendations regarding services at home. CM will continue to follow. Discharge Potential Discharge Needs: PT Evaluation and PCP F/U Appt Anticipated Barriers to Discharge: None Identified Patient/Family Education Needs: Review discharge instructions, discuss Ask Me Three Transportation: RCT RCT Transportation: Private vechicle Plan: Anticipate Judson will return home once medically cleared. He will transport home via RCT private vehicle when ready, coordinated by CM. He will follow up with his PCP and discharge plan of care. CM will continue to follow. Social Determinants of Health Screening Social Determinants of Health last assessed: 01/06/25 Will the Patient Participate in the Screening?: Yes Do you worry about having a steady place to live?: no Problems where you live: no known problems In the past 12 months, have you had to go without electric, gas, oil or water in your home?: no Have you or anyone in your house had to go without enough food to eat?: no Has lack of transportation kept you from medical appointments or from doing things needed for daily living?: no Has anyone in your life made you feel unsafe or unsupported?: no How hard is it for you to pay for the very basics like food, housing, medical care, and heating? Would you say it is:: Not hard at all Do you want help finding or keeping work or a job?: I do not need or want help If for any reason you need help with day-to-day activities such as bathing, preparing meals, shopping, managing finances, etc., do you get the help you need?: I don?t need any help How often do you feel lonely or isolated from those around you?: Never Do you speak a language other than Indonesian at home?: No Health Related Social Needs Health related social needs: education (Z55.6)
[2025-01-06] MEDS: Enoxaparin 40 MG/0.4 ML SYR SC (19:43)
[2025-01-06] MEDS: amLODIPine 2.5 MG TAB PO (19:44)
[2025-01-07] VITALS (7 sets, daily range): BP systolic 90–150; BP diastolic 34–80; PULSE 64–85; RESP 14–22; TEMP 36.4–37.8; O2SAT 93–95
--- NOTE | 2025-01-07 01:33 | PT.INTREAT ---
PT Notes Visit Reasons: Influenza Physical Therapy Inpatient Treatment Note Date: 01/07/2025 Precautions: Fall. ON AIRBORNE PRECAUTIONS. Activity as tolerated. Subjective: Agreeable to afternoon session Objective: General Observation: Resting in bed. On room air. Mental Status: Alert and oriented as to person, place, time, and purpose. Able to pay attention, focus, and respond appropriately. Pain: Complained of minimal pain in the inner side of heis left foot with ambulation Vital Signs: Closely monitored by nursing staff Bed Mobility/Transfers: Minimal cueing provided for use of B hands as needed for support, movement sequence, AD management, and posture to reduce fall risk and minimize pain report Rolling supervision Supine to sit independent Sit to supine independent Sit to stand independent with FWW Stand to sit independent with FWW Bed to reclining chair independent with FWW Gait: Facilitated safe and correct performance of in-room ambulation using FWW covering a distance of 80 feet with supervision and minimal verbal cueing for AD management, posture, weight distribution/B hand placement to maximize stability of walking whil conserving energy to decrease fatigue. Balance: Static Sitting: Normal Dynamic Sitting: Normal Static Standing: Fair Dynamic Standing: Fair THERA EX: Provided direct supervision and training with performance of standing level exercises as follows while holding onto window pane in room: Bilateral heel raises x 10 Partial knee bends x 10 Sidekicks x 10 Assessment: May navigate bed<>bedside<>recliner to toilet independently using FWW. Patient was also fitted and provided with FWW to be taken home to maximize independece and reduce fall risk. Reported fatigue and shortness of breath after exercises that subsided. Patient with functional mobility decline due to acute illness from influenza now being medically managed for this admission. Patient presents with clinical signs and symptoms consistent with current/admitting diagnoses that have resulted to mobility limitations, gait instability, generalized weakness, and overall ADL decline as demonstrated by the following impairment level findings: 1. Decreased strength to B UE/LE major muscle groups 2. Impaired sitting/standing balance 3. Impaired activity tolerance 4. Shortness of breath 5. Fatigue Impairments are contributing to the following functional limitations: 1. Decline in bed mobility skills 2. Decline in transfer skills 3. Difficulty with ambulation without assistive device and physical assistance 4. Increased completion time for mobility ADL performance 5. Increased risk for falls 6. Difficulty with managing steps alone safely Plan of Care/Treatment Plan: 1-2x/day, 7 days/week x 1 week. Plan of care has been reviewed with the DOUBLE END SEWER providing the service under Physical Therapy direction. Initiate Physical Therapy intervention for pain management as needed, strengthening, bed mobility, transfers, gait, stairs, balance training, and use of assistive device. DISCHARGE RECOMMENDATIONS: [] Home with no services [] [X] Home with services. patient will benefit from home health PT services in order to progress mobility level using least restrictive assistive ambulatory device, assess home safety, identify additional equipment needs, and establish a functional maintenance program that will increase ability of patient to remain at home. [] Home with outpatient PT [] [] SNF for continued rehabilitation [] [] Registered Dental Assistant Care [] [] SNF versus LTC based on ability to participate and progress [] TREATMENT CODE/TIME: 33271 x 25 minutes for 2 units, 95937 x 13 minutes for 1 unit (13:38-02:16).
[2025-01-07] MEDS: Acetaminophen 500 MG TAB 1000 MG PO (04:11)
[2025-01-07 06:40] LABS: Abs Immature Grans 0.02 10^3/uL (0.0-0.06); Absolute Basophil Count 0.02 10^3/uL (0.0-0.2); Absolute Eosinophil Count 0.02 10^3/uL (0.0-0.7); Absolute Monocyte Count 0.66 10^3/uL (0.1-0.8); Absolute Neutrophil Count 5.96 10^3/uL (1.2-6.7); Basophils % 0.3 %; Eosinophils % 0.3 %; HCT 34.2 % (40.0-50.0); HGB 11.5 g/dL (13.5-17.5); Immature Grans % 0.3 %; Lymphocytes % 16.3 %; MCHC 33.6 % (32.0-36.0); MCV 89 fL (80-95); MPV 9.8 fL (8.0-11.0); Monocytes % 8.3 %; Neutrophils % 74.5 %; Platelet Count 203 10^3/uL (130-400); RBC 3.83 10^6/uL (4.36-5.78); RDW 13.8 % (11.8-14.1); RDW-SD 45.1 fL; WBC 7.98 10^3/uL (4.4-10.8)
[2025-01-07 06:55] LABS: Anion Gap 8.1 mmol/L (3-11); BUN 13 mg/dL (7-18); CO2 28.9 mmol/L (21.0-32.0); CREATININE 1.3 mg/dL (0.70-1.30); Calcium 9.1 mg/dL (8.5-10.1); Chloride 103 mmol/L (98-107); Estimated GFR 56.93 (mL/min/1.73m2); Glucose 118 mg/dL (74-106); Magnesium 1.8 mg/dL (1.8-2.4); Potassium 3.4 mmol/L (3.5-5.1); Sodium 140 mmol/L (136-145)
[2025-01-07] MEDS: Calcium 600mg/Vit D 200U TAB 2 TAB PO (09:13)
[2025-01-07] MEDS: Oseltamivir 30 MG CAP PO ×2 (09:13→21:08)
[2025-01-07] MEDS: predniSONE 5 MG TAB PO (09:13)
[2025-01-07] MEDS: Tamsulosin 0.4 MG CAPCR 0.8 MG PO (09:13)
[2025-01-07] MEDS: predniSONE 1 MG TAB 2 MG PO (09:13)
[2025-01-07] MEDS: Rosuvastatin 5 MG TAB PO (09:13)
[2025-01-07] MEDS: Folic Acid 1 MG TAB PO (09:14)
[2025-01-07] MEDS: Normal Saline Flush 10 ML SYR IVP ×2 (09:14→21:09)
[2025-01-07] MEDS: Vitamins B Comp w/C TAB 1 TAB PO (09:14)
--- NOTE | 2025-01-07 09:43 | IN_ITS ---
PT Notes Visit Reasons: Influenza Physical Therapy Inpatient Initial Evaluation Date: 01/07/2025 Referring Doctor: Marie Springer NP PT Orders: PT CONSULT: Eval and treat. Precautions: Fall. ON AIRBORNE PRECAUTIONS. Activity as tolerated. Patient Profile/Admitting Diagnosis: Judson is a 74-year-old male with medical history significant for giant cell arteritis on chronic steroids and methotrexate admitted to the ED on 01/05/2025 due to complaints of being unwell, having fevers, chills , and urinary fr equency. He was found to have flu infection and was admitted to [facility] level of care for medical management. PMHX: All Active Problems (Updated 01/05/25 @ 03:35 by Judson Miller MD) Flu (Acute) GCA (giant cell arteritis) (Chronic ~11/2022) [facility] Endo--RX Actremra 01/2023; discontinued in favor of daily prednisone 7.5mg daily; switched to methotrexate 06/2024 Steroid-induced diabetes (Chronic ~09/2022) Medical History History of alcohol abuse (05/07/18) Nail dystrophy Onychomycosis Immunosuppressed status LT prednisone for GCAOn prednisone therapy (~04/2022) Abnormal gait (~06/2022) Peripheral neuropathy + vestibular ([facility] Neuro 01/2023) Elevated lipoprotein A level (~12/2021) Declines statinHyperlipidemia (~07/2021) Recommend statin 07/2021; 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 Read obtained lipoprotein a, elevated--> cardiology recommends consider statin 01/2022 Family history of prostate cancer in father Also PGFBenign prostatic hyperplasia (05/13/18) RX Flomax Hypertension (05/07/18) Goal 135-145 (lower & he feels poor)--didn't tolerate Lisinopril Peripheral neuropathy (05/07/18) EtOH related; [facility] Neuro 2017 & 2022 Diverticulosis (~08/2023) Cataracts, both eyes [place] 07/24/24 not visually significant Anemia in CKD (chronic kidney disease) Anemia (~08/2022) Lightheadedness PMR (polymyalgia rheumatica) (~04/2022) Impaired fasting glucose (05/07/18) Monitor annual A1Cs; +fam hx DMT2 Candidal paronychia Elevated serum creatinine Left scapholunate ligament tear Fracture of distal end of left radius (10/26/22) Immunization refused (~02/2022) 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 Rides the taxi for grocery shopping. Independent with ambulation using no assistive device. Has 15 step sto enter the house. Has had 1 fall the past year. Equipment Owned/DME: Subjective: Complained of pain in inner side of her L foot while walking but subsided with rest. Mildly SOB resolved with rest. Denied headache, chest pain, and lightheadedness throughout session. Initially reported unsteadiness when he stood up but felt better using the walker. Objective: General Observation: Resting in bed. On room air. Mental Status: Alert and oriented as to person, place, time, and purpose. Able to pay attention, focus, and respond appropriately. Pain: Complained of minimal pain in the inner side of heis left foot with ambulation Vital Signs: 116/87 mmHg, 85, bpm, 945 on RA after ambulation activity ROM: Right Upper Extremity: Shoulder Flexion WFL. Shoulder abduction WFL. Elbow flexion WFL. Wrist flexion WFL. Functional opening and closing of hand WFL. Left Upper Extremity: Shoulder Flexion WFL. Shoulder abduction WFL. Elbow flexion WFL. Wrist flexion WFL. Functional opening and closing of hand WFL. Right Lower Extremity: Hip flexion WFL. Hip abduction WFL. Knee flexion WFL. Ankle dorsiflexion WFL. Ankle plantarflexion WFL. Left Lower Extremity: Hip flexion WFL. Hip abduction WFL. Knee flexion WFL. Ankle dorsiflexion WFL. Ankle plantarflexion WFL. Strength: Right Upper Extremity: Shoulder flexors 4-/5. Shoulder abductors 4-/5. Elbow flexors 4-/5. Elbow extensors 4-/5. Fishing Rod Trimmer strong. Left Upper Extremity: Shoulder flexors 4-/5. Shoulder abductors 4-/5. Elbow flexors 4-/5. Elbow extensors 4-/5. Fishing Rod Trimmer strong. Right Lower Extremity: Hip flexors 4-/5. Hip abductors 4-/5. Knee flexors 44-/5. Knee extensors 4-/5. Ankle dorsiflexors 4-/5. Ankle plantarflexors 4-/5. Left Lower Extremity: Hip flexors 4-/5. Hip abductors 4-/5. Knee flexors 44-/5. Knee extensors 4-/5. Ankle dorsiflexors 4-/5. Ankle plantarflexors 4-/5. Bed Mobility/Transfers: Minimal cueing provided for use of B hands as needed for support, movement sequence, AD management, and posture to reduce fall risk and minimize pain report Rolling supervision Supine to sit supervision Sit to supine supervision Sit to stand contact guard assist with FWW Stand to sit contact guard assist with FWW Bed to reclining chair contact guard assist with FWW Gait: Facilitated safe and correct performance of in-rrom ambulation using FWW covering a distance of 50 feet with contcat guard assist and minimal verbal cueing for AD management, posture, weight distribution/B hand placement to maximize stability of walking whil conserving energy to decrease fatigue. Balance: Static Sitting: Normal Dynamic Sitting: Normal Static Standing: Fair Dynamic Standing: Fair Special Tests: Mobility Limitations Standardized Measure [facility] AM-PAC 6 clicks Basic Mobility Inpatient Short Form: Raw Score: 20 CMS Score: 36% deficit 4 Stage Balance Test: Feet together 10 seconds Semi-tandem 2 seconds Full tandem unable One-legged stance unable 30-second chair rise score: x 7 Informed Consent/Education: Patient was instructed in purpose of PT consult and plan of care. Agreeable to proceed with established PT POC to achieve personal goals. Assessment: Patient with functional mobility decline due to acute illness from influenza now being medically managed for this admission. Patient presents with clinical signs and symptoms consistent with current/admitting diagnoses that have resulted to mobility limitations, gait instability, generalized weakness, and overall ADL decline as demonstrated by the following impairment level findings: 1. Decreased strength to B UE/LE major muscle groups 2. Impaired sitting/standing balance 3. Impaired activity tolerance 4. Shortness of breath 5. Fatigue Impairments are contributing to the following functional limitations: 1. Decline in bed mobility skills 2. Decline in transfer skills 3. Difficulty with ambulation without assistive device and physical assistance 4. Increased completion time for mobility ADL performance 5. Increased risk for falls 6. Difficulty with managing steps alone safely Patient is assessed as a [id number] moderate complexity based on the following: History: 74-year-old male with past medical history as indicated above Examination: Demonstrable impairment in strength, balance, and mobility level with underlying impairments and functional limitations as exhibited above as well as deficit score of 36% utilizing the [facility] Mobility Inpatient Short Form Presentation: Evolving Decision Makin moderate complexity Goals: Goals X1 week 1. Supine-Sit independent 2. Sit-Supine independent 3. Sit-Stand independent 4. Stand-Sit independent 5. Bed-Chair independent 6. Chair-Bed independent 7. Independent gait on level surface with use of FWW for at least 150 feet without report of pain nor dyspnea 8. Independent stair negotiation while holding onto B rails for at least 15 steps without report of pain nor dyspnea 9. Independent with home exercise program 10. Good static and dynamic standing balance/tolerance Plan of Care/Treatment Plan: 1-2x/day, 7 days/week x 1 week. Plan of care has been reviewed with the MEDIA RELATIONS MANAGER providing the service under Physical Therapy direction. Initiate Physical Therapy intervention for pain management as needed, strengthening, bed mobility, transfers, gait, stairs, balance training, and use of assistive device. DISCHARGE RECOMMENDATIONS: Home with no services [] [X] Home with services. patient will benefit from home health PT services in order to progress mobility level using least restrictive assistive ambulatory device, assess home safety, identify additional equipment needs, and establish a functional maintenance program that will increase ability of patient to remain at home. [] Home with outpatient PT [] [] SNF for continued rehabilitation [] [] Certified Home Health Aide Care [] [] SNF versus LTC based on ability to participate and progress [] TREATMENT CODE/TIME: 17150 x 202 minutes for 1 unit, 13792 x 10 minutes for 1 unit (9:43-10:13). Thank you for the opportunity to participate in the care of this patient. Mariaelena Cobos PT, DPT, CLT [facility] [place], [place]
[2025-01-07] MEDS: Potassium Chloride 20 MEQ TABCR 40 MEQ PO (11:23)
[2025-01-07] MEDS: Insulin Aspart 300 UNITS/3 ML PEN SC ×2 (12:08→17:26)
--- NOTE | 2025-01-07 13:37 | PDOC.CMDIS ---
Date of service: 01/07/25 Time of Service: 13:38 Care Management Discharge SDOH Health Related Social Needs: Health related social needs education (Z55.6) Health related social needs details living at [facility]
--- NOTE | 2025-01-07 16:18 | PGE_ITS ---
Date of Service Date of service: 01/07/25 Time of Service: 16:18 Assessment and Plan Assessment and plan (1) Flu: Status: Acute Assessment and plan: Influenza Continue Tamiflu and otherwise general supportive care. Continue prednisone Monitor respiratory status VSS - no O2 requirement. Weak - PT ordered - plan on home tomorrow if continues to improve Discussed with Dr Norman Subjective Subjective Patient reports: no new complaints, tolerating liquids well, tolerating a regular diet, voiding w/o difficulty, bowel movement and afebrile; denies no flatus, diarrhea or vomiting Interval history since last seen: Patient is feeling better but still weak. He states he is unable to Exam Const General: no acute distress Orientation: alert HENMT Head: normal to inspection Ears: external ears normal General nose exam: external nose normal Mouth: moist mucous membranes Eyes General: appearance normal, both eyes and all related structures Neck Neck: normal visual inspection Resp Effort & Inspection: normal respiratory effort and able to speak in complete sentences Auscultation: diminished lung sounds Cardio Rate: regular rate GI Palpation: soft and nontender Skin General skin exam: no rashes or lesions noted Neuro General: patient alert and patient oriented x3 Extrem General: normal to inspection Psych Mental Status: mental status grossly normal Objective Last Vital Signs Temp 37.3 C 01/07/25 15:13 Pulse 71 01/07/25 15:13 Resp 14 01/07/25 15:13 BP 125/69 01/07/25 15:13 Pulse Ox 93 01/07/25 15:13 Laboratory Results - last 24 hr 01/07/25 06:10 WBC 7.98 RBC 3.83 L Hgb 11.5 L Hct 34.2 L MCV 89 MCH 30.0 MCHC 33.6 RDW 13.8 Plt Count 203 MPV 9.8 Immature Gran % 0.3 Neutrophils % 74.5 Lymphocytes % 16.3 Monocytes % 8.3 Eosinophils % 0.3 Basophils % 0.3 Nucleated RBC % 0.0 Absolute Neutrophils 5.96 Absolute Lymphocytes 1.30 Absolute Monocytes 0.66 Absolute Eosinophils 0.02 Absolute Basophils 0.02 Sodium 140 Potassium 3.4 L Chloride 103 Carbon Dioxide 28.9 Anion Gap 8.1 BUN 13 Creatinine 1.3 Est GFR (CKD-EPI 2020) 56.93 Glucose 118 H Calcium 9.1 Magnesium 1.8 PAWSS Have you Been Recently Intoxicated or Drunk Within the Last 30 days?: No Have you Ever Experienced Previous Episodes of Alcohol Withdrawal?: No Have you ever Experienced Withdrawal Seizures?: No Have you ever Experienced Delirium Tremens(DT)s?: No Have you ever undergone Alcohol Rehabilitation Treatment (i.e, inpt ot outpatient treatment programs)?: No Have you ever Experienced Blackouts?: No Have you ever Combined Alcohol with other Downers within the last 90 days?: No Have you ever Combined Alcohol with any other Substance of Abuse during the last 90 days?: No Positive Blood Alcohol level on Presentation? [PCS.BAL]: No Evidence of Increased Autonomic Activity (i.e. HR>120, tremor, sweating, agitation, nausea)?: No Result: 0 Time Spent with Patient Time Spent with Patient: 35-49 minutes Time was spent: preparing to see the patient(eg.review tests), ordering medications,tests, procedures, referring, communicating with other health career portals teacher, indepentently interpreting results, counseling the patient and care coordination
--- NOTE | 2025-01-07 16:53 | PDOC.CMPRO ---
Date of service: 01/07/25 Time of Service: 16:53 Care Management Progress Note Progress Note Text Progress Note Text: Judson was lying in bed when CM met with him. He stated that he is feeling a bit better today, but he still does not feel well enough to return home. CM asked what support would be helpful, and he stated that he still feels weak, and isn't sure if he can care for himself at home. He has been working with PT, who provided him with a FWW for ambulation. CM discussed discharge planning, indicating that per report, he will likely be ready for discharge tomorrow, if he continues to improve, and that PT will be ordered to help support his strength and independence at home. CM will continue to follow. Discharge Potential Discharge Needs: PCP F/U Appt Anticipated Barriers to Discharge: None Identified Patient/Family Education Needs: Review discharge instructions, discuss Ask Me Three Transportation: [facility] RCT Transportation: Private vechicle Plan: Anticipate Judson will return home once medically cleared. He will transport home via RCT private vehicle when ready, coordinated by CM. He will follow up with his PCP and discharge plan of care. CM will continue to follow. Social Determinants of Health Screening Social Determinants of Health last assessed: 01/07/25 Will the Patient Participate in the Screening?: Yes Do you worry about having a steady place to live?: no Problems where you live: no known problems In the past 12 months, have you had to go without electric, gas, oil or water in your home?: no Have you or anyone in your house had to go without enough food to eat?: no Has lack of transportation kept you from medical appointments or from doing things needed for daily living?: no Has anyone in your life made you feel unsafe or unsupported?: no How hard is it for you to pay for the very basics like food, housing, medical care, and heating? Would you say it is:: Not hard at all Do you want help finding or keeping work or a job?: I do not need or want help If for any reason you need help with day-to-day activities such as bathing, preparing meals, shopping, managing finances, etc., do you get the help you need?: I don?t need any help How often do you feel lonely or isolated from those around you?: Never Do you speak a language other than [place] at home?: No
[2025-01-07] MEDS: amLODIPine 2.5 MG TAB PO (21:08)
[2025-01-07] MEDS: Enoxaparin 40 MG/0.4 ML SYR SC (21:09)
[2025-01-08 03:09] VITALS: BP 115/79; PULSE 74; RESP 14; TEMP 36.6; O2SAT 92
[2025-01-08 06:45] LABS: Abs Immature Grans 0.03 10^3/uL (0.0-0.06); Absolute Basophil Count 0.01 10^3/uL (0.0-0.2); Absolute Eosinophil Count 0.02 10^3/uL (0.0-0.7); Absolute Lymphocyte Count 1.98 10^3/uL (1.2-3.4); Absolute Monocyte Count 0.68 10^3/uL (0.1-0.8); Absolute Neutrophil Count 3.69 10^3/uL (1.2-6.7); Basophils % 0.2 %; Eosinophils % 0.3 %; HCT 36.4 % (40.0-50.0); HGB 12.1 g/dL (13.5-17.5); Immature Grans % 0.5 %; Lymphocytes % 30.9 %; MCHC 33.2 % (32.0-36.0); MCV 90 fL (80-95); MPV 9.8 fL (8.0-11.0); Monocytes % 10.6 %; Neutrophils % 57.5 %; Platelet Count 225 10^3/uL (130-400); RBC 4.03 10^6/uL (4.36-5.78); RDW 13.6 % (11.8-14.1); RDW-SD 44.9 fL; WBC 6.41 10^3/uL (4.4-10.8)
[2025-01-08 06:56] LABS: Anion Gap 6.5 mmol/L (3-11); BUN 14 mg/dL (7-18); CO2 28.5 mmol/L (21.0-32.0); CREATININE 1.3 mg/dL (0.70-1.30); Chloride 103 mmol/L (98-107); Estimated GFR 56.93 (mL/min/1.73m2); Glucose 122 mg/dL (74-106); Magnesium 1.7 mg/dL (1.8-2.4); Potassium 3.7 mmol/L (3.5-5.1); Sodium 138 mmol/L (136-145)
[2025-01-08 07:20] VITALS: BP 115/72; PULSE 81; RESP 16; TEMP 37.9; O2SAT 94
[2025-01-08] MEDS: Normal Saline Flush 10 ML SYR IVP (08:59)
[2025-01-08] MEDS: Tamsulosin 0.4 MG CAPCR 0.8 MG PO (08:59)
[2025-01-08] MEDS: predniSONE 5 MG TAB PO (09:00)
[2025-01-08] MEDS: Oseltamivir 30 MG CAP PO (09:00)
[2025-01-08] MEDS: Vitamins B Comp w/C TAB 1 TAB PO (09:00)
[2025-01-08] MEDS: Rosuvastatin 5 MG TAB PO (09:00)
[2025-01-08] MEDS: Folic Acid 1 MG TAB PO (09:00)
[2025-01-08] MEDS: Calcium 600mg/Vit D 200U TAB 2 TAB PO (09:00)
[2025-01-08] MEDS: predniSONE 1 MG TAB 2 MG PO (09:00)
--- NOTE | 2025-01-08 09:35 | PT.INTREAT ---
PT Notes Visit Reasons: Influenza Physical Therapy Inpatient Treatment Note Date: 01/08/2025 Precautions: Fall. ON AIRBORNE PRECAUTIONS. Activity as tolerated. Subjective: Very sad. Verbalized wanting to because he does not have anybody nor does he have anything to live for. Complained of pain in the L foot with walking. Fatigued after a shorter walk. Objective: General Observation: Resting in chair. On room air. Mental Status: Alert and oriented as to person, place, time, and purpose. Able to pay attention, focus, and respond appropriately. Pain: above Vital Signs: Closely monitored by nursing staff Bed Mobility/Transfers: Minimal cueing provided for use of B hands as needed for support, movement sequence, AD management, and posture to reduce fall risk and minimize pain report Rolling supervision Supine to sit independent Sit to supine independent Sit to stand independent with FWW Stand to sit independent with FWW Bed to reclining chair independent with FWW Gait: Facilitated safe and correct performance of in-room ambulation using FWW covering a distance of 40 feet with supervision and minimal verbal cueing for AD management, posture, weight distribution/B hand placement to maximize stability of walking whil conserving energy to decrease fatigue. Balance: Static Sitting: Normal Dynamic Sitting: Normal Static Standing: Fair Dynamic Standing: Fair Assessment: Deferred exercises today due to fatigue. May continue to navigate bed<>bedside<>recliner to toilet independently using FWW. Patient was also fitted and provided with FWW to be taken home to maximize independece and reduce fall risk. Reported fatigue and shortness of breath after exercises that subsided. Plan of Care/Treatment Plan: 1-2x/day, 7 days/week x 1 week. Plan of care has been reviewed with the CIGARETTE PACKAGE EXAMINER providing the service under Physical Therapy direction. Initiate Physical Therapy intervention for pain management as needed, strengthening, bed mobility, transfers, gait, stairs, balance training, and use of assistive device. DISCHARGE RECOMMENDATIONS: [] Home with no services [] [X] Home with services. patient will benefit from home health PT services in order to progress mobility level using least restrictive assistive ambulatory device, assess home safety, identify additional equipment needs, and establish a functional maintenance program that will increase ability of patient to remain at home. [] Home with outpatient PT [] [] SNF for continued rehabilitation [] [] Intermediate Care [] [] SNF versus LTC based on ability to participate and progress [] TREATMENT CODE/TIME: 51490 x 25 minutes for 2 units (09:35-10:00).
[2025-01-08] MEDS: Insulin Aspart 300 UNITS/3 ML PEN SC (11:56)
[2025-01-08] MEDS: Magnesium Chloride 64 MG TABCR PO (13:44)
--- NOTE | 2025-01-08 14:23 | DSE_ITS ---
Date of service: 01/08/25 Time of Service: 14:23 DS: Diagnosis Discharge Diagnosis (1) Flu: Status: Acute Discharge Plan Disposition Patient Disposition: Home Condition: Improving Discharge Details Reason For Visit: Influenza Admit Date/Time: 01/05/25 03:41 Admit Provider: Marie Springer Attending Provider: Marie Springer Primary Care Provider: Yesy Nagy Hospital Course Hospital Course: The patient, a 74-year-old male with a history of giant cell arteritis, currently managed with methotrexate and prednisone, presented to the emergency department feeling unwell for the past 24 to 48 hours. He reported symptoms including urinary frequency, fever, chills, and a productive cough. Denials included chest pain, abdominal pain, neck pain, headache, and other complaints. Initial Examination: * Vital Signs: Temp 39.4?C, heart rate improved with fluid resuscitation. * Physical Exam: Scattered rhonchi and rales noted; no abdominal or chest discomfort; no genital pain or tenderness. Laboratory Findings: * White blood cell count: 12.8 * Lactate: 3.0 * Electrolytes: Normal * Urinalysis: Negative for infection * Chest X-ray: No acute process * Influenza A: Positive Treatment and Management: Upon admission, the patient was treated with: * Broad-spectrum antibiotics (Vancomycin and Levofloxacin) * Rehydration with 1 liter of normal saline * Ofirmev for fever control * Initiation of Tamiflu following positive influenza swab Given the patient's immunocompromised status, it was determined that inpatient admission was warranted for close monitoring and supportive care. No steroids were indicated at this time, and the patient's usual dose of prednisone was continued. Assessment and Plan: * Diagnosis: Influenza A with secondary symptoms, possible viral pneumonia. * Plan: * Continue Tamiflu and supportive care * Monitor vital signs and lab values * No ongoing need for broad-spectrum antibiotics * Continue usual management for chronic conditions Discharge Instructions: The patient was advised to: * Follow up with primary care * Monitor symptoms and seek medical attention if they worsen * Complete the prescribed course of Tamiflu * Maintain hydration and rest Code Status: Full Code Additional Notes: All aspects of the treatment plan were discussed with the patient. The patient expressed understanding of the plan and had no further questions. Home Meds and New Rx's Prescriptions: New oseltamivir 30 mg Capsule 30 mg PO BID Qty: 3 0RF Continued prednisone 5 mg tablet 5 mg PO DAILY Qty: 90 1RF (DME) blood-glucose meter Kit See Rx Instructions .Route Qty: 1 0RF Rx Instructions: ONE TOUCH METER As directed to check blood glucose daily. No insulin. DX:E11.9 to maintain Hba1c <7% vitamin B complex [B Complex-Vitamin B12] Tablet 1 tab PO DAILY tamsulosin [Flomax] 0.4 mg capsule 0.8 mg PO DAILY Qty: 180 3RF Rx Instructions: Enlarged prostate; dose increase 03/29/2023 prednisone 2.5 mg tablet 2.5 mg PO DAILY aspirin 325 mg tablet 162.5 - 325 mg PO DAILY PRN calcium carbonate-vitamin D3 [Caltrate with Vitamin D3] 600 mg-20 mcg (800 unit) tablet 2 tab PO DAILY Qty: 180 3RF Rx Instructions: For bone health while on prednisone rosuvastatin 5 mg tablet 5 mg PO DAILY Qty: 90 3RF Rx Instructions: For cholesterol, steroid-induced diabetes (DME) blood sugar diagnostic Strip See Rx Instructions .Route Qty: 100 3RF Rx Instructions: One touch test strips to check blood glucose daily. no insulin. DX:E11.9 to maintain Hba1c <7% (DME) lancets Misc See Rx Instructions .Route Qty: 100 3RF Rx Instructions: E11.9 for daily monitoring for A1C <=7% One touch lancets folic acid 1 tab PO DAILY amlodipine 2.5 mg tablet See Rx Instructions .ROUTE .COMPLEX Qty: 30 0RF Dose Instruction: TAKE ONE TABLET BY MOUTH AT BEDTIME , MAY INCREASE TO 5MG IF BLOOD PRESSURE NOT AT GOAL <140/90 , MAXIMUM DAILY DOSE = 5MG /24HR Rx Instructions: TAKE ONE TABLET BY MOUTH AT BEDTIME , MAY INCREASE TO 5MG IF BLOOD PRESSURE NOT AT GOAL <140/90 , MAXIMUM DAILY DOSE = 5MG /24HR prednisone 1 mg tablet 1 mg PO DAILY MDD 7 mg daily Qty: 60 1RF Rx Instructions: Use with your 2.5 or 5 mg tablets to make 7 mg daily Discharge Instructions Instructions: Influenza A Virus Vaccine (H5N1) Additional Instructions: Follow up with your PCP Stand Alone Forms: Nursing Discharge Form Referrals: Yesy Nagy MATERIALS AND PROCESSES MANAGER [Primary Care Provider] - None (post hospitalization visit within 10 days.) Activity:: Activity as Tolerated Equipment/Supplies:: No Equipment Needed Diet:: As Tolerated Discharge Orders Discharge Orders: Discharge Order (Routine); Ordered 01/08/25 Ordered By: Marie Springer Discharge Data Discharge Date/Time-TO BE ENTERED AT DEPARTURE: 01/08/25 15:41 DS: Summary Time Spent with Patient providing and/or coordinating discharge services: Greater than 30 minutes Status at Discharge Functional status at discharge: uses cane/walker Overall status at discharge: patient is back to baseline Mental Status: mental status grossly normal Speech and Movement: speech and movement normal Mood: congruent mood Affect: normal affect Quality:SDOH Health Related Social Needs: Health related social needs education (Z55.6) Health related social needs details living at homeless [facility] Exam Const General: no acute distress Orientation: alert HENMT Head: normal to inspection Ears: external ears normal General nose exam: external nose normal Mouth: moist mucous membranes Eyes General: appearance normal, both eyes and all related structures Neck Neck: normal visual inspection Resp Effort & Inspection: normal respiratory effort and able to speak in complete sentences Auscultation: diminished lung sounds Cardio Rate: regular rate GI Palpation: soft and nontender Skin General skin exam: no rashes or lesions noted Neuro General: patient alert and patient oriented x3 Extrem General: normal to inspection Psych Mental Status: mental status grossly normal Speech and Movement: speech and movement normal Mood: congruent mood Affect: normal affect DS: Data Vitals/I&O Vitals and I&O: Vital Signs Temperature 37.9 C H 01/08/25 07:20 Temperature Source Temporal Artery Scan 01/08/25 07:20 Pulse 81 01/08/25 07:20 Pulse Rhythm Regular 01/05/25 07:57 Pulse Strength Normal 01/05/25 03:27 Respiratory Rate 16 01/08/25 07:20 Respiratory Effort Short of Breath 01/05/25 07:57 Respiratory Depth Normal 01/05/25 07:57 Respiratory Pattern Normal 01/05/25 07:57 Blood Pressure 115/72 01/08/25 07:20 Blood Pressure Mean 97 01/05/25 03:27 Blood Pressure Position Sitting 01/05/25 03:27 Pulse Oximetry 94 01/08/25 07:20 Oxygen Delivery Method Room Air 01/08/25 07:20 Oxygen Flow Rate 0 01/08/25 07:20 Pain Level 0 01/08/25 07:20 Comment Pain, dull headache, body aches. 01/07/25 07:33 Intake & Output 01/07/25 01/08/25 01/08/25 23:59 11:59 23:59 Output Total 800 / 1425 250 / 250 Balance -800 / -1225 -250 / -250 Output: Urine 800 / 1425 250 / 250 Other: Urine Color Yellow Yellow Urine Appearance Clear Clear Urine Odor Normal Comment pt voids independently in room Data Completed and Pending Labs on day of discharge: Labs from last 24 hours 01/08/25 06:17 WBC 6.41 RBC 4.03 L Hgb 12.1 L Hct 36.4 L MCV 90 MCH 30.0 MCHC 33.2 RDW 13.6 Plt Count 225 MPV 9.8 Immature Gran % 0.5 Neutrophils % 57.5 Lymphocytes % 30.9 Monocytes % 10.6 Eosinophils % 0.3 Basophils % 0.2 Nucleated RBC % 0.0 Absolute Neutrophils 3.69 Absolute Lymphocytes 1.98 Absolute Monocytes 0.68 Absolute Eosinophils 0.02 Absolute Basophils 0.01 Sodium 138 Potassium 3.7 Chloride 103 Carbon Dioxide 28.5 Anion Gap 6.5 BUN 14 Creatinine 1.3 Est GFR (CKD-EPI 2020) 56.93 Glucose 122 H Calcium 9.0 Magnesium 1.7 L Preliminary micro results at discharge 01/05/25 02:55 Blood Culture - Preliminary Blood NO GROWTH 72 HOURS 01/05/25 02:28 Blood Culture - Preliminary Blood NO GROWTH 72 HOURS PFSH All Active Problems (Updated 01/05/25 @ 03:53 by Harrison Wilkins DO) Influenza A (Acute) Sepsis (Acute) Flu (Acute) GCA (giant cell arteritis) (Chronic ~11/2022) [facility] [place] Actremra 01/[place]23; discontinued in favor of daily prednisone 7.5mg daily; switched to methotrexate 06/2024 Steroid-induced diabetes (Chronic ~09/2022) Medical History History of alcohol abuse (05/07/18) Nail dystrophy Onychomycosis Immunosuppressed status LT prednisone for GCA On prednisone therapy (~04/2022) Abnormal gait (~06/2022) Peripheral neuropathy + vestibular [place] [place] Elevated lipoprotein A level (~12/2021) Declines statin Hyperlipidemia (~07/2021) Recommend statin 07/2021; Extractions Technician Reynaldo Read obtained lipoprotein a, elevated--> cardiology recommends consider statin 01/2022 Family history of prostate cancer in father Also PGF Benign prostatic hyperplasia (05/13/18) RX Flomax Hypertension (05/07/18) Goal 135-145 (lower & he feels poor)--didn't tolerate Lisinopril Peripheral neuropathy (05/07/18) EtOH related; [facility] [place] & 2022 Diverticulosis (~08/2023) Cataracts, both eyes [place] 07/24/24 not visually significant Anemia in CKD (chronic kidney disease) Anemia (~08/2022) Lightheadedness PMR (polymyalgia rheumatica) (~04/2022) Impaired fasting glucose (05/07/18) Monitor annual A1Cs; +fam hx DMT2 Candidal paronychia Elevated serum creatinine Left scapholunate ligament tear Fracture of distal end of left radius (10/26/22) Immunization refused (~02/2022) 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--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 Seborrheic dermatitis of scalp Edema of lower extremity (05/07/18) Occurred x1, RX Furosemide and never reoccurred even off Furosemide Anxiety (05/07/18) Hepatomegaly (05/07/18) Resolved off EtOH Surgical History Tonsillectomy Appendectomy Family History Father , 73yo from metastatic prostate cancer Essential hypertension Heart disease Myocardial infarction Neoplasm Prostate Mother , early 70s diabetes complications Diabetes Paternal Grandfather , prostate cancer Neoplasm Prostate Social History Smoking/Tobacco Use Status: Former Tobacco Use Quit Date: 11/26/71 Smoking risk assessment performed?: Yes Alcohol Intake: current Alcohol Intake frequency: other Alcohol type: beer Drug use: Occasionally Substance use type: marijuana Household members: none Housing: apartment Number of Children: 3 Communication Needs: Corrective Lenses 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 Current gender identity: male What is your relationship status?: Panel score (0-1 are the most socially isolated patients): 0 What type of physical activity do you participate in: walking Duration: 15-30 minutes/day Frequency: 3-4 times per week Seatbelt use: always Drive intox or 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 company truck driver: No Working smoke detector in home: Yes Fire extinguisher in home: Yes Carbon monox detector in home: Yes Do you feel safe at home: Yes Do you feel safe in your relationship?: Yes Time Spent with Patient Time Spent with Patient: 45-69 minutes Time was spent: preparing to see the patient(eg.review tests), ordering medications,tests, procedures, referring, communicating with other health intensive care unit nurse, indepentently interpreting results, counseling the patient and care coordination
[2025-01-08] MEDS: Acetaminophen 500 MG TAB 1000 MG PO (15:00)
--- NOTE | 2025-01-08 17:39 | CMDISCH_ITS ---
Date of service: 01/08/25 Time of Service: 17:39 LACE Index Scoring Tool Questions: Length of Stay (in days): 3 Was the patient admitted via the E.D.?: Yes Comorbidities: Diabetes w/o Complication E.D. Visits: 4 Answers: Total Score: 11 Risk of Readmission: High Risk Care Management Discharge Plan Reason for Hospitalization: Influenza Discharge Plan: Judson returned home today with new orders for HH PT. He was hesitant about returning home; he could not identify specific concerns, although he stated that he feels weak. He has been working well with PT, and is CGA/SBA with ambulation using a FWW. PT provided him with a FWW upon discharge. He transported home via private vehicle by [facility]. He will follow up with his PCP and discharge plan of care. Patient/Family Education Needs: Review discharge instructions and limitations, discussion of self care needs including ask me three. Services Needed at Discharge: Home Health Care Services (new HH PT) and Transportation ([facility] private vehicle.) SDOH Health Related Social Needs: Health related social needs education (Z55.6) Health related social needs details living at homeless senior care
== END 2025-01-08 15:41 | disposition home or self-care (01) | DRG 194 ==
LOC: ER 05:27 → MS 07:44
PROVIDERS: Family Medicine; General Practice; Admitting Provider Nurse Practitioner Family; Emergency Provider Student in an Organized Health Care Education/Training Program; PCP Nurse Practitioner Adult Health; Responsible Provider Nurse Practitioner Family; Visit Provider Nurse Practitioner Family
DX: J10.1 Influenza due to other identified influenza virus with other respiratory manifestations (principal); D84.821 Immunodeficiency due to drugs; Z79.631 Long term (current) use of antimetabolite agent; Z79.52 Long term (current) use of systemic steroids; E09.9 Drug or chemical induced diabetes mellitus without complications; B35.1 Tinea unguium; G62.1 Alcoholic polyneuropathy; E78.5 Hyperlipidemia, unspecified; N40.0 Benign prostatic hyperplasia without lower urinary tract symptoms; D63.1 Anemia in chronic kidney disease; F41.9 Anxiety disorder, unspecified; F10.11 Alcohol abuse, in remission; M31.5 Giant cell arteritis with polymyalgia rheumatica; N18.9 Chronic kidney disease, unspecified; I12.9 Hypertensive chronic kidney disease with stage 1 through stage 4 chronic kidney disease, or unspecified chronic kidney disease
CPT/HCPCS: 00123; 36415; 80048; 80053; 84145; 87040; 87637; 96365; 96366; 96367; 97110; 97162; 97530; 99285; J1650; 71045; 81003; 81015; 83605; 83735; 85025; 87086; 94760; 99222; 99232; 99233; 99239; J0131; J1815; J1956; J3490; J7512

== ENCOUNTER 2025-06-08 10:33 | Outpatient (REF) | payer MEDICARE, MEDICAID, SELFPAY ==
[2025-06-08 18:11] LABS: COMMENT (LAB VIEW ONLY) 50.51 mg/dL; Microalb ug/mg Crea 21.4 ug/mg Cr
[2025-06-08 18:33] LABS: Glucose Negative (Negative)
== END 2025-06-08 10:34 | disposition home or self-care (01) ==
LOC: LBN 10:33
PROVIDERS: PCP Nurse Practitioner Adult Health; Visit Provider Nurse Practitioner Adult Health
DX: E09.9 Drug or chemical induced diabetes mellitus without complications (principal); T38.0X5D Adverse effect of glucocorticoids and synthetic analogues, subsequent encounter; M31.6 Other giant cell arteritis
CPT/HCPCS: 81003; 82043; 82570

== ENCOUNTER 2025-07-20 07:42 | Emergency (ER) | payer MEDICARE, MEDICAID, SELFPAY ==
[2025-07-20] VITALS (27 sets, daily range): BP systolic 153–157; BP diastolic 81; PULSE 58–92; RESP 18; TEMP 36.8–37.1; O2SAT 94–98
--- NOTE | 2025-07-20 08:28 | W.ED.GENAD ---
Discharge Plan Disposition Patient Disposition: Home Condition: Stable Discharge Details Clinical Impression: Acute diverticulitis of intestine Primary Care Provider: Yesy Nagy ED Provider: Vladimir Lucas Home Meds and New Rx's Prescriptions: New amoxicillin-pot clavulanate 875-125 mg tablet 1 tab PO BID Qty: 19 0RF ondansetron 4 mg tablet,disintegrating 4 mg PO Q8H PRN (Reason: nausea and vomiting) Qty: 10 0RF Continued (DME) blood-glucose meter Kit See Rx Instructions .Route Qty: 1 0RF Rx Instructions: ONE TOUCH METER As directed to check blood glucose daily. No insulin. DX:E11.9 to maintain Hba1c <7% vitamin B complex [B Complex-Vitamin B12] Tablet 1 tab PO DAILY tamsulosin [Flomax] 0.4 mg capsule 0.8 mg PO DAILY Qty: 180 3RF Rx Instructions: Enlarged prostate; dose increase 03/29/2023 aspirin 325 mg tablet 162.5 - 325 mg PO DAILY PRN calcium carbonate-vitamin D3 [Caltrate with Vitamin D3] 600 mg-20 mcg (800 unit) tablet 2 tab PO DAILY Qty: 180 3RF Rx Instructions: For bone health while on prednisone prednisone 2.5 mg tablet 7.5 mg PO DAILY (DME) blood sugar diagnostic Strip See Rx Instructions .Route Qty: 100 3RF Rx Instructions: One touch test strips to check blood glucose daily. no insulin. DX:E11.9 to maintain Hba1c <7% (DME) lancets Misc See Rx Instructions .Route Qty: 100 3RF Rx Instructions: E11.9 for daily monitoring for A1C <=7% One touch lancets amlodipine 2.5 mg tablet See Rx Instructions .ROUTE .COMPLEX Qty: 90 0RF Dose Instruction: TAKE ONE TABLET BY MOUTH AT BEDTIME , MAY INCREASE TO 5MG IF BLOOD PRESSURE NOT AT GOAL <140/90 , MAXIMUM DAILY DOSE = 5MG /24HR Rx Instructions: TAKE ONE TABLET BY MOUTH AT BEDTIME , MAY INCREASE TO 5MG IF BLOOD PRESSURE NOT AT GOAL <140/90 , MAXIMUM DAILY DOSE = 5MG /24HR Discontinued rosuvastatin 5 mg tablet 5 mg PO DAILY Qty: 90 3RF Rx Instructions: For cholesterol, steroid-induced diabetes folic acid 1 tab PO DAILY Discharge Instructions Instructions: Diverticulitis Additional Instructions: Please maintain a clear liquid diet today and tomorrow morning. You may advance to bland foods like rice tomorrow afternoon. Advance slowly daily thereafter. Take full course of antibiotic as prescribed. Drink plenty of fluid to stay hydrated. Allow for plenty of rest. Please follow-up with your primary care physician. Return to the emergency department immediately for any worsening or new concerning symptoms. Referrals: Yesy Nagy, CREMATORY ATTENDANT [Primary Care Provider, Medicine] Discharge Data Discharge Date/Time-TO BE ENTERED AT DEPARTURE: 07/20/25 12:00 HPI General Date/Time Provider Initiated Documentation: 07/20/25 08:13. Limitations to Documentation: no limitations. Information obtained by: patient. HPI Narrative: HISTORY OF PRESENT ILLNESS 74-year-old male with GCA presenting with loose stool. Experienced explosive diarrhea after taking half a dose of Dulcolax on 07/18/2025. He had been experiencing constipation for 3 days prior to taking laxative. Symptoms now include frequent bowel movements, feeling unwell, dehydration, foul-smelling dark brown stools, and nausea. No vomiting, recent antibiotics, rashes, or swelling. No blood in stool. History of appendectomy during childhood. Suspects GCA contributing to condition. On prednisone 7.5 mg daily for almost 2 years, missed doses yesterday and today. Has diabetes, avoids sugar. Related Data Home Medications ?Medication ?Instructions ?Recorded ?Confirmed vitamin B complex (B 1 tab PO DAILY 05/06/21 07/20/25 Complex-Vitamin B12 tablet) tamsulosin 0.4 mg capsule (Flomax) 0.8 mg (2 x 0.4 mg) PO DAILY #180 05/19/24 07/20/25 tab-caps blood sugar diagnostic #100 ea 06/09/24 07/20/25 lancets #100 ea 06/09/24 07/20/25 aspirin 325 mg tablet 162.5 - 325 mg PO DAILY PRN 06/26/24 07/20/25 calcium 600 mg (as 2 tab PO DAILY #180 tabs 06/26/24 07/20/25 carbonate)-vitamin D3 20 mcg (800 unit) tablet (Caltrate with Vitamin D3) blood-glucose meter #1 ea 09/29/24 07/20/25 prednisone 2.5 mg tablet 7.5 mg PO DAILY 01/28/25 07/20/25 amlodipine 2.5 mg tablet See Rx Instructions .Route 05/12/25 07/20/25 .COMPLEX #90 tabs amoxicillin 875 mg-potassium 1 tab PO BID #19 tabs 07/20/25 clavulanate 125 mg tablet ondansetron 4 mg disintegrating 4 mg PO Q8H PRN nausea and 07/20/25 tablet vomiting #10 tabs Previous Rx's ?Medication ?Instructions ?Recorded tamsulosin 0.4 mg capsule (Flomax) 0.8 mg (2 x 0.4 mg) PO DAILY #180 05/19/24 tab-caps blood sugar diagnostic #100 ea 06/09/24 lancets #100 ea 06/09/24 calcium 600 mg (as 2 tab PO DAILY #180 tabs 06/26/24 carbonate)-vitamin D3 20 mcg (800 unit) tablet (Caltrate with Vitamin D3) blood-glucose meter #1 ea 09/29/24 amlodipine 2.5 mg tablet See Rx Instructions .Route 05/12/25 .COMPLEX #90 tabs amoxicillin 875 mg-potassium 1 tab PO BID #19 tabs 07/20/25 clavulanate 125 mg tablet ondansetron 4 mg disintegrating 4 mg PO Q8H PRN nausea and 07/20/25 tablet vomiting #10 tabs Allergies Allergy/AdvReac Type Severity Reaction Status Date / Time amoxicillin (From Augmentin) AdvReac Intermediate vomiting, Verified 07/20/25 07:49 GI Upset atenolol AdvReac Intermediate off Verified 07/20/25 07:49 balance, dizzy clavulanic acid (From AdvReac Intermediate vomiting, Verified 07/20/25 07:49 Augmentin) GI Upset General Stated Complaint: Nausea/Vomit/Diar ASIM: 3 Review of Systems All systems reviewed & are unremarkable except as noted in HPI and below Constitutional Constitutional: Denies fever(s) Exam Const General: cooperative and no acute distress HENMT Mouth: mucous membranes dry Eyes Conjunctivae: normal conjunctivae Sclera: normal sclerae Resp Auscultation: clear to auscultation bilaterally, no rales, no rhonchi and no wheezes Cardio Rate: regular rate and not tachycardic Rhythm: regular rhythm GI Palpation: soft, not firm, no guarding, no masses, not rigid and tender in the LLQ Skin General skin exam: no rashes or lesions noted Neuro General: patient alert, patient awake and tone normal Extrem General: no edema Psych Appearance: grossly normal Mental Status: mental status grossly normal Course Vital Signs Vital signs: Vital Signs Temperature 36.8 C 07/20/25 07:47 Pulse 76 07/20/25 07:47 Respiratory Rate 18 07/20/25 07:47 Blood Pressure 157/81 H 07/20/25 07:47 Pulse Oximetry 97 07/20/25 07:47 Temperature 36.8 C 07/20/25 07:47 Temperature Source Oral 07/20/25 07:47 Pulse 76 07/20/25 07:47 Respiratory Rate 18 07/20/25 07:47 Blood Pressure 157/81 H 07/20/25 07:47 Blood Pressure Position Sitting 07/20/25 07:47 Pulse Oximetry 97 07/20/25 07:47 Oxygen Delivery Method Room Air 07/20/25 07:47 Oxygen Flow Rate 0 07/20/25 07:47 Medical Decision Making ASSESSMENT AND PLAN 74-year-old male with loose stools and abdominal cramping post-Dulcolax. History of GCA on chronic prednisone. Differential: Diverticulitis, dehydration, colitis, bowel perforation, CA ED Course: - Patient administered IVF bolus for dehydration. - CT of the abd/pelv was performed to assess for acute intrabdominal surgical pathology was interpreted by radiology: Colonic diverticulosis with findings concerning for an acute mild diverticulitis in the proximal sigmoid colon. There is no abscess or free air. - Results reviewed with patient. Augmentin initiated. - Patient was reassessed and condition improved. Tolerating oral fluids. Requesting discharge. Dispo: Discharge home, follow-up with primary care, colonoscopy recommended. Patient education: Bowel rest with clear fluids, gradual reintroduction of bland diet, monitor for worsening pain, severe constipation, or diarrhea, importance of hydration. This document was written with the assistance of NASH Smith. The patient consented to its use. Lab Data Lab results reviewed: Yes I reviewed the patient's lab results. Labs: Laboratory Tests Range/Units 07/20/25 08:30 WBC (4.4-10.8) 10^3/uL 10.60 RBC (4.36-5.78) 10^6/uL 4.06 L Hgb (13.5-17.5) g/dL 12.6 L Hct (40.0-50.0) % 37.8 L MCV (80-95) fL 93 MCH (27.0-33.0) pg 31.0 MCHC (32.0-36.0) % 33.3 RDW (11.8-14.1) % 12.9 Plt Count (130-400) 10^3/uL 272 MPV (8.0-11.0) fL 9.4 Immature Gran % % 0.5 Neutrophils % % 62.7 Lymphocytes % % 29.0 Monocytes % % 7.0 Eosinophils % % 0.5 Basophils % % 0.3 Nucleated RBC % (0.0-0.3) % 0.0 Absolute Neutrophils (1.2-6.7) 10^3/uL 6.66 Absolute Lymphocytes (1.2-3.4) 10^3/uL 3.07 Absolute Monocytes (0.1-0.8) 10^3/uL 0.74 Absolute Eosinophils (0.0-0.7) 10^3/uL 0.05 Absolute Basophils (0.0-0.2) 10^3/uL 0.03 Sodium (136-145) mmol/L 140 Potassium (3.5-5.1) mmol/L 4.2 Chloride (98-107) mmol/L 102 Carbon Dioxide (21.0-32.0) mmol/L 32.0 Anion Gap (3-11) mmol/L 6.0 BUN (7-18) mg/dL 12 Creatinine (0.70-1.30) mg/dL 1.2 Est GFR (CKD-EPI 2020) (mL/min/1.73m2) 62.67 Glucose (74-106) mg/dL 118 H Calcium (8.5-10.1) mg/dL 9.3 Magnesium (1.8-2.4) mg/dL 2.5 H Total Bilirubin (0.2-1.0) mg/dL 0.7 AST (15-37) U/L 15 ALT (16-63) U/L 20 Alkaline Phosphatase (46-116) U/L 59 Total Protein (6.4-8.2) g/dL 6.8 Albumin (3.4-5.0) g/dL 3.3 L Lipase (<78) U/L 48 Quality:SDAR Health Related Social Needs: Health related social needs education Health related social needs details [facility] PFSH All Active Problems (Updated 07/20/25 @ 11:50 by Vladimir Lucas MD) Acute diverticulitis of intestine (Acute) Abnormal gait (Chronic ~06/2022) Peripheral neuropathy + vestibular ([facility] Neuro 01/2023) Urge incontinence of urine (Acute) BPH w urinary obs/LUTS (Acute) GCA (giant cell arteritis) (Chronic ~11/2022) [facility] Endo--RX Actremra 01/2023; discontinued in favor of daily prednisone 7.5mg daily; switched to methotrexate 06/2024 Steroid-induced diabetes (Chronic ~09/2022) Medical History (Updated 07/20/25 @ 11:50 by Vladimir Lucas MD) Influenza A (~12/2024) Sepsis (~12/2024) History of alcohol abuse (05/07/18) Nail dystrophy Onychomycosis Immunosuppressed status LT prednisone for GCA On prednisone therapy (~04/2022) Elevated lipoprotein A level (~12/2021) Declines statin Hyperlipidemia (~07/2021) Recommend statin 07/2021; 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[employer] 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 Read obtained lipoprotein a, elevated--> cardiology recommends consider statin 01/2022 Family history of prostate cancer in father Also PGF Benign prostatic hyperplasia (05/13/18) RX Flomax Hypertension (05/07/18) Goal 135-145 (lower & he feels poor)--didn't tolerate Lisinopril Peripheral neuropathy (05/07/18) EtOH related; [facility] Neuro 2017 & 2022 Diverticulosis (~08/2023) Cataracts, both eyes [place] 07/24/24 not visually significant Anemia in CKD (chronic kidney disease) Anemia (~08/2022) Lightheadedness PMR (polymyalgia rheumatica) (~04/2022) Impaired fasting glucose (05/07/18) Monitor annual A1Cs; +fam hx DMT2 Candidal paronychia Elevated serum creatinine Left scapholunate ligament tear Fracture of distal end of left radius (10/26/22) Immunization refused (~02/2022) Tachycardia vessel specialist stable--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 Seborrheic dermatitis of scalp Edema of lower extremity (05/07/18) Occurred x1, RX Furosemide and never reoccurred even off Furosemide Anxiety (05/07/18) Hepatomegaly (05/07/18) Resolved off EtOH Surgical History Tonsillectomy Appendectomy Family History Father , 73yo from metastatic prostate cancer Essential hypertension Heart disease Myocardial infarction Neoplasm Prostate Mother , early 70s diabetes complications Diabetes Paternal Grandfather , prostate cancer Neoplasm Prostate Social History (Updated 06/08/25 @ 11:28 by Yesy Nagy NP) Smoking/Tobacco Use Status: Former Tobacco Use Quit Date: 11/26/71 Smoking risk assessment performed?: Yes Alcohol Intake: current Alcohol Intake frequency: a few times a month Alcohol type: beer Drug use: Occasionally Substance use type: marijuana Household members: none Housing: apartment Number of Children: 3 Communication Needs: Corrective Lenses 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
[2025-07-20] MEDS: Normal Saline 1,000 ML 1000 ML IV (08:30)
[2025-07-20 08:42] LABS: Abs Immature Grans 0.05 10^3/uL (0.0-0.06); HCT 37.8 % (40.0-50.0); HGB 12.6 g/dL (13.5-17.5); Immature Grans % 0.5 %; MCH 31.0 pg (27.0-33.0); MCHC 33.3 % (32.0-36.0); MCV 93 fL (80-95); MPV 9.4 fL (8.0-11.0); Platelet Count 272 10^3/uL (130-400); RBC 4.06 10^6/uL (4.36-5.78); RDW 12.9 % (11.8-14.1); RDW-SD 44.1 fL; WBC 10.60 10^3/uL (4.4-10.8)
[2025-07-20 09:10] LABS: ALT 20 U/L (16-63); AST 15 U/L (15-37); Albumin 3.3 g/dL (3.4-5.0); Alkaline Phosphatase 59 U/L (46-116); Anion Gap 6.0 mmol/L (3-11); BUN 12 mg/dL (7-18); Bilirubin, Total 0.7 mg/dL (0.2-1.0); CO2 32.0 mmol/L (21.0-32.0); Calcium 9.3 mg/dL (8.5-10.1); Chloride 102 mmol/L (98-107); Estimated GFR 62.67 (mL/min/1.73m2); Glucose 118 mg/dL (74-106); Lipase 48 U/L (<78); Magnesium 2.5 mg/dL (1.8-2.4); Potassium 4.2 mmol/L (3.5-5.1); Sodium 140 mmol/L (136-145); Total Protein 6.8 g/dL (6.4-8.2)
[2025-07-20] MEDS: Normal Saline Flush 10 ML SYR IVP (09:28)
[2025-07-20] MEDS: Normal Saline - Diluent 50 ML VIAL IJ (09:29)
[2025-07-20] MEDS: Omnipaque 350 MG/ML 500 ML BTL-Imaging package IJ (09:29)
--- NOTE | 2025-07-20 09:32 | DI.CT_ITS ---
Exam(s) CT ABDOMEN PELVIS W EXAM: CT ABDOMEN PELVIS W CLINICAL HISTORY: tender llq, loose stool TECHNIQUE: Imaging Protocol: Axial computed tomography images with coronal and sagittal reformatted images were created and reviewed. CONTRAST MATERIAL: Intravenous: Omnipaque 350 Contrast volume:75 mL Oral: No COMPARISON: CT CT ABDOMEN PELVIS W from 09/13/2023 FINDINGS: ABDOMEN: Lung Bases: No acute abnormality. Liver: Normal density. No measurable mass. Portal, Superior Mesenteric, and Splenic Veins: Unremarkable. Gallbladder and Biliary Tract: No radiodense calculus or dilation. Pancreas: Normal density, no abnormal calcifications or inflammatory process. Spleen: Normal. Adrenals: No masses seen. Kidneys: Normal size, contour and axis. No radiodense stones or obstructive uropathy. No masses seen. There is a circum aortic left renal vein. Abdominal Aorta: Abdominal portion non-dilated. Atherosclerotic calcification is present. Bowel: There is diverticulosis of the colon. There does appear to be mild wall thickening seen in the proximal sigmoid colon which may reflect an early mild acute diverticulitis. No abscess or free air is seen. There is no evidence of bowel obstruction or pneumatosis. There is no evidence of appendicitis. Peritoneal Cavity: No ascites, collection or mesenteric inflammatory response. No free air. Lymph Nodes: Within normal limits. Bones: Within normal limits for the patient's age. Soft Tissues: No acute abnormality. PELVIS: Bladder: Symmetric distention, no gross wall thickening. Reproductive Organs: Unremarkable as visualized. Lymph Nodes: Within normal limits. Bones: Within normal limits for the patient's age. IMPRESSION: Colonic diverticulosis with findings concerning for an acute mild diverticulitis in the proximal sigmoid colon. There is no abscess or free air. RADIATION DOSE DELIVERED: 295.96mGy.cm Total DLP DATA REPOSITORY: All CT scans at this facility are submitted to the National Radiology Data Registry (NRDR) Dose Index Registry (DIR) with the [employer] (ACR). RADIATION OPTIMIZATION: All CT scans at this facility use at least one of these dose optimization techniques: automated exposure control; mA and/or kV adjustment per patient size (includes targeted exams where dose is matched to clinical indication); or iterative reconstruction.
[2025-07-20] MEDS: Amoxicillin 875/Clav. 125 TAB PO (10:36)
[2025-07-20] MEDS: predniSONE 10 MG TAB 7.5 MG PO (10:36)
[2025-07-20] MEDS: Acetaminophen 325 MG TAB 650 MG PO (11:15)
== END 2025-07-20 12:00 | disposition home or self-care (01) ==
PROVIDERS: Emergency Provider Student in an Organized Health Care Education/Training Program; PCP Nurse Practitioner Adult Health
DX: K57.92 Diverticulitis of intestine, part unspecified, without perforation or abscess without bleeding (principal); Z59.01 Sheltered homelessness
CPT/HCPCS: 80053; 83690; 96360; 96361; 99285; 74177; 83735; 85025; 99284; J7512

== ENCOUNTER 2025-07-24 09:24 | Emergency (ER) | payer MEDICARE, MEDICAID, SELFPAY ==
[2025-07-24] VITALS (14 sets, daily range): BP systolic 132–157; BP diastolic 59–91; PULSE 58–90; RESP 12–18; TEMP 36.6–36.9; O2SAT 92–98
--- NOTE | 2025-07-24 10:36 | W.ED.GENAD ---
Discharge Plan Disposition Patient Disposition: Home Condition: Stable Discharge Details Clinical Impression: Constipation, Diverticulitis Primary Care Provider: Yesy Nagy ED Provider: Vladimir Lucas Home Meds and New Rx's Prescriptions: New polyethylene glycol 3350 [Miralax] 17 gram powder in packet 17 g PO DAILY Qty: 14 0RF Continued (DME) blood-glucose meter Kit See Rx Instructions .Route Qty: 1 0RF Rx Instructions: ONE TOUCH METER As directed to check blood glucose daily. No insulin. DX:E11.9 to maintain Hba1c <7% vitamin B complex [B Complex-Vitamin B12] Tablet 1 tab PO DAILY tamsulosin [Flomax] 0.4 mg capsule 0.8 mg PO DAILY Qty: 180 3RF Rx Instructions: Enlarged prostate; dose increase 03/29/2023 aspirin 325 mg tablet 162.5 - 325 mg PO DAILY PRN calcium carbonate-vitamin D3 [Caltrate with Vitamin D3] 600 mg-20 mcg (800 unit) tablet 2 tab PO DAILY Qty: 180 3RF Rx Instructions: For bone health while on prednisone prednisone 2.5 mg tablet 7.5 mg PO DAILY (DME) blood sugar diagnostic Strip See Rx Instructions .Route Qty: 100 3RF Rx Instructions: One touch test strips to check blood glucose daily. no insulin. DX:E11.9 to maintain Hba1c <7% (DME) lancets Misc See Rx Instructions .Route Qty: 100 3RF Rx Instructions: E11.9 for daily monitoring for A1C <=7% One touch lancets amlodipine 2.5 mg tablet See Rx Instructions .ROUTE .COMPLEX Qty: 90 0RF Dose Instruction: TAKE ONE TABLET BY MOUTH AT BEDTIME , MAY INCREASE TO 5MG IF BLOOD PRESSURE NOT AT GOAL <140/90 , MAXIMUM DAILY DOSE = 5MG /24HR Rx Instructions: TAKE ONE TABLET BY MOUTH AT BEDTIME , MAY INCREASE TO 5MG IF BLOOD PRESSURE NOT AT GOAL <140/90 , MAXIMUM DAILY DOSE = 5MG /24HR amoxicillin-pot clavulanate 875-125 mg tablet 1 tab PO BID Qty: 19 0RF ondansetron 4 mg tablet,disintegrating 4 mg PO Q8H PRN (Reason: nausea and vomiting) Qty: 10 0RF Discharge Instructions Instructions: Diverticulitis, Constipation, Adult ED Additional Instructions: Please follow-up with your primary care physician as scheduled next week for reassessment. Return to the emergency department immediately for any worsening or new concerning symptoms. Referrals: Yesy Nagy NP [Primary Care Provider, Medicine] HPI General Mode of arrival: ambulatory. Date/Time Provider Initiated Documentation: 07/24/25 09:24. Limitations to Documentation: no limitations. Information obtained by: patient. HPI Narrative: HISTORY OF PRESENT ILLNESS 74-year-old male with diverticulitis presenting with constipation. No bowel movements since 07/20/2025, mild abdominal pain, low appetite, consuming only water. No fever, chills, rashes, or swelling. Taking antibiotics twice daily. Upcoming appointment on 07/28/2025. Reports wrist pain due to GCA and neuropathy in feet. Took steroids this morning at 0000 hours. Related Data Home Medications ?Medication ?Instructions ?Recorded ?Confirmed vitamin B complex (B 1 tab PO DAILY 05/06/21 07/24/25 Complex-Vitamin B12 tablet) tamsulosin 0.4 mg capsule (Flomax) 0.8 mg (2 x 0.4 mg) PO DAILY #180 05/19/24 07/24/25 tab-caps blood sugar diagnostic #100 ea 06/09/24 07/24/25 lancets #100 ea 06/09/24 07/24/25 aspirin 325 mg tablet 162.5 - 325 mg PO DAILY PRN 06/26/24 07/24/25 calcium 600 mg (as 2 tab PO DAILY #180 tabs 06/26/24 07/24/25 carbonate)-vitamin D3 20 mcg (800 unit) tablet (Caltrate with Vitamin D3) blood-glucose meter #1 ea 09/29/24 07/24/25 prednisone 2.5 mg tablet 7.5 mg PO DAILY 01/28/25 07/24/25 amlodipine 2.5 mg tablet See Rx Instructions .Route 05/12/25 07/24/25 .COMPLEX #90 tabs amoxicillin 875 mg-potassium 1 tab PO BID #19 tabs 07/20/25 07/24/25 clavulanate 125 mg tablet ondansetron 4 mg disintegrating 4 mg PO Q8H PRN nausea and 07/20/25 07/24/25 tablet vomiting #10 tabs polyethylene glycol 3350 17 gram 17 g PO DAILY constipation #14 ea 07/24/25 oral powder packet (Miralax) Previous Rx's ?Medication ?Instructions ?Recorded tamsulosin 0.4 mg capsule (Flomax) 0.8 mg (2 x 0.4 mg) PO DAILY #180 05/19/24 tab-caps blood sugar diagnostic #100 ea 06/09/24 lancets #100 ea 06/09/24 calcium 600 mg (as 2 tab PO DAILY #180 tabs 06/26/24 carbonate)-vitamin D3 20 mcg (800 unit) tablet (Caltrate with Vitamin D3) blood-glucose meter #1 ea 09/29/24 amlodipine 2.5 mg tablet See Rx Instructions .Route 05/12/25 .COMPLEX #90 tabs amoxicillin 875 mg-potassium 1 tab PO BID #19 tabs 07/20/25 clavulanate 125 mg tablet ondansetron 4 mg disintegrating 4 mg PO Q8H PRN nausea and 07/20/25 tablet vomiting #10 tabs polyethylene glycol 3350 17 gram 17 g PO DAILY constipation #14 ea 07/24/25 oral powder packet (Miralax) Allergies Allergy/AdvReac Type Severity Reaction Status Date / Time amoxicillin (From Augmentin) AdvReac Intermediate vomiting, Verified 07/24/25 09:35 GI Upset atenolol AdvReac Intermediate off Verified 07/24/25 09:35 balance, dizzy clavulanic acid (From AdvReac Intermediate vomiting, Verified 07/24/25 09:35 Augmentin) GI Upset General Stated Complaint: Abd Prob ASIM: 3 Review of Systems All systems reviewed & are unremarkable except as noted in HPI and below Constitutional Constitutional: Denies fever(s) Gastrointestinal Gastrointestinal: Reports as per HPI Exam Const General: cooperative and no acute distress [facility] Mouth: moist mucous membranes Eyes Conjunctivae: normal conjunctivae Sclera: normal sclerae EOM: EOM intact bilaterally Neck Neck: trachea midline and supple Resp Auscultation: clear to auscultation bilaterally, no rales, no rhonchi and no wheezes Cardio Jugular venous pressure: no JVD Rate: regular rate and not tachycardic Rhythm: regular rhythm GI Inspection: non-distended Palpation: soft, not firm, no guarding, no masses, not rigid and tender in the LLQ Auscultation: normal bowel sounds Rectal Exam: visual inspection normal, normal sphincter tone and No fecal impaction Other: no peritoneal findings Skin General skin exam: no rashes or lesions noted Neuro General: patient alert, patient awake, patient oriented x3 and tone normal Course Vital Signs Vital signs: Vital Signs Temperature 36.9 C 07/24/25 09:27 Pulse 90 07/24/25 09:27 Respiratory Rate 18 07/24/25 09:27 Blood Pressure 157/91 H 07/24/25 09:27 Pulse Oximetry 97 07/24/25 09:27 Temperature 36.9 C 07/24/25 09:35 Temperature Source Oral 07/24/25 09:35 Pulse 82 07/24/25 09:35 Respiratory Rate 18 07/24/25 09:35 Blood Pressure 157/91 H 07/24/25 09:35 Pulse Oximetry 97 07/24/25 09:35 Oxygen Delivery Method Room Air 07/24/25 09:35 Oxygen Flow Rate 0 07/24/25 09:35 Pain Level 9 07/24/25 09:35 Medical Decision Making ASSESSMENT AND PLAN 74-year-old male with constipation likely due to diverticulitis. No bowel movement for 4-5 days, mild abdominal pain, compliant with antibiotics. No fever, chills, rash, or swelling. Abdominal exam reveals tenderness in his left lower quadrant with no peritoneal findings. Plan to continue antibiotics, will start miralax, fiber and prune juice. Discharge home, return if symptoms worsen. Follow-up on 07/28/2025. Discuss concerns with primary care provider. This document was written with the assistance of NASH Smith. The patient consented to its use. Quality:SDOH Health Related Social Needs: Health related social needs education Health related social needs details [facility] All Active Problems (Updated 07/24/25 @ 10:52 by Vladimir Lucas MD) Diverticulitis (Chronic) Constipation (Acute) Acute diverticulitis of intestine (Acute) Abnormal gait (Chronic ~06/2022) Peripheral neuropathy + vestibular [place] [place] Urge incontinence of urine (Acute) BPH w urinary obs/LUTS (Acute) GCA (giant cell arteritis) (Chronic ~11/2022) [facility] Actremra 01/2023; discontinued in favor of daily prednisone 7.5mg daily; switched to methotrexate 06/2024 Steroid-induced diabetes (Chronic ~09/2022) Medical History (Updated 07/24/25 @ 10:52 by Vladimir Lucas MD) Influenza A (~12/2024) Sepsis (~12/2024) History of alcohol abuse (05/07/18) Nail dystrophy Onychomycosis Immunosuppressed status LT prednisone for GCA On prednisone therapy (~04/2022) Elevated lipoprotein A level (~12/2021) Declines statin Hyperlipidemia (~07/2021) Recommend statin 07/2021; 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 Reynaldo Read obtained lipoprotein a, elevated--> cardiology recommends consider statin 01/2022 Family history of prostate cancer in father Also PGF Benign prostatic hyperplasia (05/13/18) RX Flomax Hypertension (05/07/18) Goal 135-145 (lower & he feels poor)--didn't tolerate Lisinopril Peripheral neuropathy (05/07/18) EtOH related; [facility] 2017 & 2022 Diverticulosis (~08/2023) Cataracts, both eyes [place] 07/24/24 not visually significant Anemia in CKD (chronic kidney disease) Anemia (~08/2022) Lightheadedness PMR (polymyalgia rheumatica) (~04/2022) Impaired fasting glucose (05/07/18) Monitor annual A1Cs; +fam hx DMT2 Candidal paronychia Elevated serum creatinine Left scapholunate ligament tear Fracture of distal end of left radius (10/26/22) Immunization refused (~02/2022) 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 Seborrheic dermatitis of scalp Edema of lower extremity (05/07/18) Occurred x1, RX Furosemide and never reoccurred even off Furosemide Anxiety (05/07/18) Hepatomegaly (05/07/18) Resolved off EtOH Surgical History Tonsillectomy Appendectomy Family History Father , 73yo from metastatic prostate cancer Essential hypertension Heart disease Myocardial infarction Neoplasm Prostate Mother , early 70s diabetes complications Diabetes Paternal Grandfather , prostate cancer Neoplasm Prostate Social History (Updated 06/08/25 @ 11:28 by Yesy Nagy NP) Smoking/Tobacco Use Status: Former Tobacco Use Quit Date: 11/26/71 Smoking risk assessment performed?: Yes Alcohol Intake: current Alcohol Intake frequency: a few times a month Alcohol type: beer Drug use: Occasionally Substance use type: marijuana Household members: none Housing: apartment Number of Children: 3 Communication Needs: Corrective Lenses 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
== END 2025-07-24 11:07 | disposition home or self-care (01) ==
PROVIDERS: Emergency Provider Student in an Organized Health Care Education/Training Program; PCP Nurse Practitioner Adult Health
DX: K59.00 Constipation, unspecified (principal); K57.30 Diverticulosis of large intestine without perforation or abscess without bleeding
CPT/HCPCS: 99282; 99283